=== PATIENT | male | born 1955 | race Caucasian/White ===

== ENCOUNTER 2016-06-15 15:51 | Inpatient (IN) ==
[2016-06-15] MEDS ORDERED: THIAMINE INJ 100 MG, FOLIC ACID INJ 1 MG, MAGNESIUM SULF INJ 2 GM, MULTIVITAMIN INJ 10 ... IV ONE (16:48)
--- NOTE | 2016-06-15 16:58 | EKG Report ---
Stationary ECG Study [facility] ER Test Date: 06/15/2016 4:56:13 PM Pat Name: ISAC AYON Department: Room: Gender: M Camp Coordinator: : 1955 Requested by: Sabas Hartman Order Number: [id number] Reading MD: ELISHA MCPHERSON Intervals Clark Rate: 105 P: 999 DE: 0 QRS: 41 QRSD: 98 T: 254 QT: 378 QTc: 439 Interpretive Statements ATRIAL FIBRILLATION WITH RAPID VENTRICULAR RESPONSE INCOMPLETE RIGHT BUNDLE BRANCH BLOCK ST DEVIATION AND MODERATE T-WAVE ABNORMALITY Electronically Signed On 06-16-16 17:54:40 CDT by ELISHA MCPHERSON [id number]
--- NOTE | 2016-06-15 17:11 | Emergency Department Note ---
ILeon Kasabria, am scribing for, and in the presence of, Sbaas Horne MD 16:57. Coleen Ramos Charles R, MD, personally performed the services described in this documentation, ascribed by Sheng Quintero in my presence, and it is both accurate and complete . Arrival - Arrival Chief Complaint: Blood Pressure Stated Complaint: C/O FAILURE TO THRIVE, HYPOTENSIVE ED Nursing Triage Note: Pt has decreased PO intake and states that he has not walked in approx 8 days - EMS reports that he was hypotensive upon their arrival Mode of Arrival: Stretcher Limitations: No Limitations Source: Patient - History of Present Illness HPI Narrative: This is a 60 y/o white male presenting to the ED with c/o failure to thrive and being hypotensive. Pt states he has not been eating, drinking, and walking over the course of eight days because he has been depressed. He states he has still taken his medications. He recently retired one month ago and since he has been on a steady decline. He admitted to being an alcoholic and he drinks daily in three hour intervals. He states when he does not drink, he shakes and twitches in his sleep and the only thing that can make it better is if he drinks. Pt c/o leg pain and weakness and states this has also contributed to him not wanting to walk and be active. He states he does not want to because he has a 16 y/ o son at home that he has to take care of. Pt would not have came to the ED if his did not call the ambulance. He is a pt of Dr. Yair Reyes and is suppose to visit him every three months but states he has not been compliant with his visits. His PMHx is consistent with CHF with preserved ejection fraction, atrial fibrillation, and diabetes. Consistency: constant Severity: moderate Allergies/Adverse Reactions: Allergies Allergy/AdvReac Type Severity Reaction Status Date / Time No Known Allergies Allergy Verified 12/15/15 19:33 Home Medications: Home Medications Medication Instructions Recorded Confirmed Type Apixaban [Eliquis] 5 mg PO BID #60 tablet 12/18/15 Rx Aspirin Chew Tab 81 mg PO DAILY tablet 12/18/15 Rx Diltiazem Cd Cap [Cardizem CD] 180 mg PO DAILY #30 capsule 12/18/15 Rx Furosemide Tab [Lasix Tab] 40 mg PO BID DIURETIC #60 tablet 12/18/15 Rx Losartan [Cozaar] 25 mg PO DAILY #30 tablet 12/18/15 Rx Magnesium Oxide 800 mg PO BID #60 tablet 12/18/15 Rx Nitroglycerin Sl Tab [Nitrostat] 0.4 mg SL Q5M PRN #30 tablet 12/18/15 Rx Sotalol [Betapace] 80 mg PO BID #60 tablet 12/18/15 Rx Spironolactone [Aldactone] 50 mg PO DAILY #30 tablet 12/18/15 Rx Review of System - Review of System 12 point system: reviewed and no additional remarkable complaints except as stated - Review of System Constitutional: Present: other (depressed ). Absent: chills, fever, weakness Eyes: Absent: vision change Head/Ears/Nose/Throat: Absent: nasal drainage Respiratory: Absent: cough, wheezing Cardiovascular: Absent: chest pain, dyspnea on exertion Gastrointestinal: Absent: abdominal pain, nausea, vomiting, diarrhea Genitourinary male: Absent: dysuria Musculoskeletal: Present: leg pain (bilateral ). Absent: arm pain, back pain, neck pain Skin: Absent: rash, change in color Neurological: Present: weakness. Absent: headache, numbness, confusion, vertigo Psychiatric: Present: depression (confessed to being an alcoholic and drinks daily ). Absent: anxiety Endocrine: Absent: fatigue Hematological/Lymphatic: Absent: easy bleeding Allergic/Immunologic: Absent: facial swelling Medical,Surgical,& Family Hx - Medical History Cardio: History of: Cardiac Dysrhythmia (atrial fib flutter with tachybradycardia syndrome as diagnosi for pacemaker), CHF (with preserved ejection fraction), Hypertension, Pacemaker Neurology: History of: TIA Endocrine: History of: Diabetes Mellitus (NIDDM) Rheumatology: History of;: Psoriasis Respiratory: History of: Obstructive Sleep Apnea Musculoskeletal: History of: Musculoskeletal Problems (WEEK IN LOWER EXTREMITIES ) Hematology: History of: Blood Transfusion Reaction (NO REACTION) - Family History Family History: Reports;: Family Diabetes (MOTHER), Family Heart Disease, Family Hypertension (MOTHER), Family Psychiatric Problems (MOTHER) - Social History Smoking Status: Never smoker Frequency of Alcohol Use: Frequently Type of Drug Use: None Exam Vital Signs: Vital Signs Temperature 98.4 F 06/15/16 16:04 Pulse Rate 99 H 06/15/16 17:30 Respiratory Rate 20 06/15/16 17:30 Blood Pressure 85/51 06/15/16 17:30 O2 Sat by Pulse Oximetry 100 06/15/16 17:30 - General General appearance: alert, in no apparent distress - Head Head exam: Present: atraumatic, normocephalic, normal inspection - Eye Eye exam: Present: normal appearance, PERRL, EOMI - ENT ENT exam: Present: normal exam, normal oropharynx, mucous membranes moist, TM's normal bilaterally, normal external ear exam - Neck Neck exam: Present: normal inspection, full ROM, trachea midline. Absent: tenderness - Chest Chest inspection: Present: normal inspection, symmetric chest wall rise. Absent : tenderness - Respiratory Respiratory exam: Present: normal lung sounds bilaterally - Cardiovascular Cardiovascular exam: Present: regular rate, normal rhythm, normal heart sounds - Abdominal Exam Abdominal exam: Present: soft, distention (bloated ), normal bowel sounds. Absent: tenderness - Rectal Exam Rectal exam: Present: heme (+) stool - Extremities Exam Extremities exam: Present: tenderness, normal capillary refill, calf tenderness (bilaterally; atrophy ). Absent: normal inspection, pedal edema - Back Exam Back exam: Present: normal inspection, full ROM. Absent: tenderness - Neurological Exam Neurological exam: Present: alert, oriented X3, CN II-XII intact, normal gait, reflexes normal - Psychiatric Psychiatric exam: Present: normal affect, depressed (came out as an alcoholic today ). Absent: normal mood - Skin Skin exam: Present: warm, dry, intact, normal color. Absent: rash Course - Consultations Consultation #1: Dr. Norma Garcia will admit for Dr. Dr. Reyes Time: 18:38 Results - Labs CBC & BMP: 06/15/16 16:25 06/15/16 16:25 Lab Results: I have reviewed the patients labs Critical Care Time Critical Care Time: Yes Total Critical Care Time: 60 Disposition Clinical Impression: Ascites, Obesity, Acute blood loss anemia, GI bleed, Alcohol abuse, Elevated liver enzymes, Hypotension, Failure to thrive, Acute renal failure Case discussed with: patient, patient's family Disposition: Still a Patient Condition: Critical Time of Disposition: 18:48
[2016-06-15 17:13] LABS: Basophils % 0.4 % (0.0-0.8); Eosinophils # 0.1 10*3/uL (0.0-0.87); Eosinophils % 1.7 % (0.00-10.9); Hematocrit 23.6 VOL% (42.0-52.0); Hemoglobin 7.9 GM/DL (14.0-18.0); Immature Granulocytes % 1.4 %; Lymphocytes # 1.1 10*3/uL (1.4-4.0); Lymphocytes % 15.8 % (21.2-54.2); Mean Corpuscular HGB Conc 33.5 GM/DL (32-36); Mean Corpuscular Hemoglobin 36 PG (27-34); Mean Corpuscular Volume 106.8 FL (87-102); Mean Platelet Volume 11.1 FL (9.6-12.0); Monocytes # 0.9 10*3/uL (0.11-0.8); Monocytes % 12.4 % (1.7-12.7); NRBC # 0.04 10*3/uL; Neutrophils # 4.9 10*3/uL (1.4-7.4); Neutrophils % 68.3 % (38.7-73.9); Platelet Count 108 T/CUMM (130-400); Red Blood Count 2.21 MC/CUMM (3.8-5.5); Red Cell Distribution Width 14.7 % (9.3-17.3); White Blood Count 7.2 T/CUMM (4-12)
[2016-06-15 17:19] LABS: INR 1.1; PT Patient Result 12.2 SECS
--- NOTE | 2016-06-15 17:23 | CT Report ---
CT head/brain wo con Indication: Mental status changes. CT BRAIN WITHOUT CONTRAST DLP: 1134 mGy*cm. One or more of the following dose reduction techniques was used: Automated exposure control, adjustment of the mA and/or kV according the patient size, or use of iterative reconstruction techniques. Comparison: 05/18/2011. Date of admission: 06/15/2016. Technique: Axial noncontrast CT images of the brain were obtained. Findings: No acute hemorrhage, mass or mass effect. Generalized atrophy and patchy periventricular white matter hypodensity is present throughout both convexities. Cortical cates-white junction and structures of the basal ganglia are well-defined. No bone lesions are shown. Internal auditory canals are symmetric. Visualized sinuses and mastoid air cells are clear. Impression: No acute intracranial pathology. Generalized atrophy and changes consistent with microvascular disease, both progressed since 2011. PROCEDURE INTERPRETED AT [facility] DEPARTMENT OF RADIOLOGY Final Report Signed by: Carlos Paniagua M.D.
--- NOTE | 2016-06-15 17:25 | XRay Report ---
XR chest 1V portable Indication: Altered mental status. Chest one view: Comparison 12/15/2015. Cardiomegaly has improved significantly, now mild. Pacemaker stable. Mediastinal contours unremarkable. Lungs are clear except for some mild right basal atelectasis secondary to chronic elevation right hemidiaphragm. Impression: No acute cardiopulmonary disease. Mild cardiomegaly, pacemaker and chronic elevation right hemidiaphragm. PROCEDURE INTERPRETED AT [facility] DEPARTMENT OF RADIOLOGY Final Report Signed by: Carlos Paniagua M.D.
--- NOTE | 2016-06-15 17:28 | Ultrasound Report ---
US venous doppler LE BI Indication: Bilateral calf pain. BILATERAL LOWER EXTREMITY VENOUS ULTRASOUND Comparison: 12/11/2015 Findings: Graded grayscale compression, color Doppler and pulsed Doppler ultrasound evaluation of the venous structures performed. Normal compressibility, augmentation and color saturation is present within bilateral common femoral, superficial femoral, popliteal and proximal greater saphenous veins. Impression: No evidence of DVT either lower extremity. PROCEDURE INTERPRETED AT [facility] DEPARTMENT OF RADIOLOGY Final Report Signed by: Carlos Paniagua M.D.
[2016-06-15 17:31] LABS: Alanine Aminotransferase 47 U/L (16-61); Albumin 2.6 G/DL (3.4-5.0); Alkaline Phosphatase 226 U/L (45-117); Amylase 29 U/L (25-115); Aspartate Amino Transferase 180 U/L (0-37); Blood Urea Nitrogen 60 MG/DL (7-18); Calcium 8.2 MG/DL (8.5-10.1); Free T4 (Free Thyroxine) 1.13 NG/DL (0.76-1.46); Glucose 70 MG/DL (74-106); Magnesium 2.3 MG/DL (1.8-2.4); Osmolality,Calculated 274.8 MOS/KG (273-304); Potassium 4.5 MMOL/L (3.5-5.1); Sodium 130 MMOL/L (136-145); Total Protein 5.1 G/DL (6.4-8.3); Troponin I Only < 0.015 NG/ML (0.00-0.045)
[2016-06-15 17:52] LABS: Ammonia 39 UMOL/L (11-32)
[2016-06-15] MEDS ORDERED: ONDANSETRON 4 MG/2 ML VIAL IV PRN (19:40)
[2016-06-15] MEDS ORDERED: LORazepam 2 MG/1 ML VIAL IV PRN ×3 (19:40→23:19)
[2016-06-15] MEDS ORDERED: SODIUM CHLORIDE 0.9% 250 ML IV PRN (19:40)
[2016-06-15] MEDS ORDERED: GLUCAGON 1 MG VIAL IM PRN (19:40)
[2016-06-15] MEDS ORDERED: MORPHINE 2 MG/1 ML SYRINGE IV PRN (19:40)
[2016-06-15] MEDS ORDERED: DEXTROSE 50% 25 GM/50 ML VIAL IV PRN (19:40)
[2016-06-15] MEDS ORDERED: ALBUTEROL/IPRATROPIUM 3 ML NEB RESP TX PRN (19:40)
[2016-06-15] MEDS: SODIUM CHLORIDE 0.9% 1,000 ML IV SCH (19:58)
[2016-06-15 20:09] LABS: Basophils % 0.4 % (0.0-0.8); Eosinophils # 0.2 10*3/uL (0.0-0.87); Eosinophils % 1.8 % (0.00-10.9); Hematocrit 23.6 VOL% (42.0-52.0); Hemoglobin 7.8 GM/DL (14.0-18.0); Immature Granulocytes % 1.3 %; Immature Granulocytes Absolute 0.11 #; Lymphocytes # 1.5 10*3/uL (1.4-4.0); Lymphocytes % 18.8 % (21.2-54.2); Mean Corpuscular HGB Conc 33.1 GM/DL (32-36); Mean Corpuscular Hemoglobin 35 PG (27-34); Mean Corpuscular Volume 104.9 FL (87-102); Monocytes # 1.1 10*3/uL (0.11-0.8); Monocytes % 13.4 % (1.7-12.7); NRBC # 0.04 10*3/uL; Neutrophils # 5.3 10*3/uL (1.4-7.4); Neutrophils % 64.3 % (38.7-73.9); Platelet Count 100 T/CUMM (130-400); Red Blood Count 2.25 MC/CUMM (3.8-5.5); Red Cell Distribution Width 15.1 % (9.3-17.3); White Blood Count 8.2 T/CUMM (4-12)
--- NOTE | 2016-06-15 20:13 | Internal Med History&Physical ---
Assessment and Plan (1) Paroxysmal atrial fibrillation Status: Chronic Current Visit: Yes (2) Acute renal failure Status: Acute Current Visit: Yes (3) Alcohol abuse Status: Chronic Current Visit: Yes (4) Ascites Status: Chronic Current Visit: Yes Qualifiers: Ascites type: due to alcoholic cirrhosis Qualified Code(s): K70.31 - Alcoholic cirrhosis of liver with ascites (5) Elevated liver enzymes Status: Chronic Current Visit: Yes (6) Failure to thrive Status: Chronic Current Visit: Yes (7) Hypotension Status: Acute Current Visit: Yes Qualifiers: Hypotension type: other hypotension type Qualified Code(s): I95.89 - Other hypotension (8) NICM (nonischemic cardiomyopathy) Status: Chronic Current Visit: Yes History of Present Illness Chief complaint: progressive weakness History of present illness: Mr. Tracy is a 60 year old male with history of dilated cardiomyopathy with EF 25%, diastolic dysfunction, sinus tachy debra syndrome with pacemaker placement, DM, liver cirrhosis, alcoholism, hypothyroidism, paroxysmal atrial fibrillation, who presented to ER with profound and worsening weakness. He was found to have pancreatitis, liver failure, and possibly hepatorenal syndrome. He is in renal failure. He reported to ER that he has not been eating/drinking over several days, except for drinking alcohol. He admits to alcoholism as reported by ER. Admitted to ICU with severe anemia and receiving blood transfusion. He, also, is found to be hyponatremic. History of ascites and abdominal x-ray ordered for morning. Failure to thrive. He has history of medical noncompliance. Home Medications Medication Instructions Recorded Confirmed Type Apixaban [Eliquis] 5 mg PO BID #60 tablet 12/18/15 06/15/16 Rx Aspirin Chew Tab 81 mg PO DAILY tablet 12/18/15 06/15/16 Rx Diltiazem Cd Cap [Cardizem CD] 180 mg PO DAILY #30 capsule 12/18/15 06/15/16 Rx Furosemide Tab [Lasix Tab] 40 mg PO BID DIURETIC #60 tablet 12/18/15 06/15/16 Rx Losartan [Cozaar] 25 mg PO DAILY #30 tablet 12/18/15 06/15/16 Rx Magnesium Oxide 800 mg PO BID #60 tablet 12/18/15 06/15/16 Rx Nitroglycerin Sl Tab [Nitrostat] 0.4 mg SL Q5M PRN #30 tablet 12/18/15 06/15/16 Rx Sotalol [Betapace] 80 mg PO BID #60 tablet 12/18/15 06/15/16 Rx Spironolactone [Aldactone] 50 mg PO DAILY #30 tablet 12/18/15 06/15/16 Rx Furosemide [Lasix] 40 mg PO BID 06/15/16 06/15/16 History Levothyroxine Tab [Synthroid Tab] 75 mcg PO DAILY@0700 06/15/16 06/15/16 History Potassium Chloride 20 meq PO BID 06/15/16 06/15/16 History Allergies Allergy/AdvReac Type Severity Reaction Status Date / Time No Known Allergies Allergy Verified 12/15/15 19:33 Medical,Surgical,& Family Hx - Medical History Cardio: History of: Cardiac Dysrhythmia (atrial fib flutter with tachybradycardia syndrome; pacemaker placement), CHF (with preserved ejection fraction), Hypertension, Pacemaker Psychological: History of: Depression Neurology: History of: TIA Endocrine: History of: Diabetes Mellitus (NIDDM) Rheumatology: History of;: Psoriasis Respiratory: History of: Obstructive Sleep Apnea Renal: History of: Renal Problems (chronic renal insufficiency) Gastrointestinal: History of: Liver Problems (cirrhosis) Musculoskeletal: History of: Musculoskeletal Problems (WEAK IN LOWER EXTREMITIES ) Hematology: History of: Anemia (chronic disease and illness) - Surgical History Cardiac Surgeries: Sugical HX of: Internal Defibrillator (pacemaker) - Family History Family History: Reports;: Family Diabetes (MOTHER), Family Heart Disease, Family Hypertension (MOTHER), Family Psychiatric Problems (MOTHER) - Social History Smoking Status: Former smoker Frequency of Alcohol Use: Frequently Type of Drug Use: None Marital Status: Lives With:: Spouse Functional capacity: independent ambulation (complains of being too weak to walk in last several days) - Constitutional Constitutional: Present: anorexia, fatigue, lethargy, malaise, weakness - Gastrointestinal Gastrointestinal: Present: bloating, jaundice - Musculoskeletal Musculoskeletal: Present: muscle weakness - Neurological Neurological: Present: behavioral changes, confusion - Psychiatric Psychiatric: Present: anxiety Exam - Constitutional Vitals: Period Temp Pulse Resp BP Sys/Mcbride Pulse Ox Last 24 Hr 101 20 100/65 100 General appearance: mild distress - Head Head exam: Present: normocephalic - Eye Eye exam: Present: EOMI - Respiratory Respiratory exam: Present: clear to auscultation bilaterally. Absent: rales, rhonchi, wheezes - Cardiovascular Cardiovascular exam: Present: tachycardia - GI/Abdominal GI/Abdominal exam: Present: distended - Extremities Exam Extremities exam: Absent: edema - Neurological Exam Neurological exam: Present: altered - Psychiatric Psychiatric exam: Present: depressed, flat affect - Skin Skin exam: Present: dry, rash (forehead and scalp) Results - Labs CBC & BMP: 06/15/16 19:51 06/15/16 16:25 - EKG EKG shows: tachycardia (at time seen) - Diagnostic Findings Procedure: Chest x-ray: report reviewed by me, image reviewed by me, CT: report reviewed by me Quality Measures - VTE Contraindication to Pharmacological VTE Prophylaxis: Active Bleeding
[2016-06-15] MEDS ORDERED: FUROSEMIDE 40 MG TABLET PO ONE (20:14)
[2016-06-15] MEDS: DOCUSATE SODIUM 100 MG CAPSULE PO SCH (20:38)
[2016-06-15] MEDS: INSULIN REGULAR 100 UNIT/ML SUBCUT SCH (21:23)
[2016-06-15] MEDS ORDERED: LEVOTHYROXINE 50 MCG TABLET PO ONE (23:27)
[2016-06-15] MEDS ORDERED: SOTALOL 80 MG TABLET PO SCH (23:30)
[2016-06-15] MEDS: HALOPERIDOL 5 MG/ML AMP IM SCH (23:32)
[2016-06-15] MEDS: METOPROLOL TARTRATE 25 MG TABLET PO SCH (23:35)
[2016-06-16] MEDS: ALBUTEROL/IPRATROPIUM 3 ML NEB RESP TX SCH ×4 (02:19→19:15)
[2016-06-16] MEDS: NYSTATIN CREAM 15 GM TUBE TOP SCH ×3 (05:30→22:02)
[2016-06-16] MEDS: KETOCONAZOLE 2% SHAMPOO 120 ML BOTTLE TOP SCH (05:30)
[2016-06-16] MEDS: LEVOTHYROXINE 50 MCG TABLET PO SCH (06:38)
--- NOTE | 2016-06-16 06:41 | XRay Report ---
Referring Physician: Izabella Garcia Exam: XR chest 1V portable Date: June 16, 2016 at 3:12 AM Reason: Shortness of breath Comparison: Chest one view portable June 15, 2016 Findings: The cardiac silhouette is again enlarged, and a cardiac pacing device is again in place. There is persistent mild elevation of the right hemidiaphragm and minimal atelectasis at the right lung base. No pneumothorax or pleural effusion is identified. No acute osseous process is seen. Impression: There has been no significant change. PROCEDURE INTERPRETED AT [facility] DEPARTMENT OF RADIOLOGY Final Report Signed by: Dr. David Rhoades
--- NOTE | 2016-06-16 06:43 | XRay Report ---
Referring Physician: Izabella Garcia Exam: XR KUB Date: June 16, 2016 at 3:13 AM Reason: Generalized abdominal pain Comparison: None Findings: There is mild gaseous distention of the small bowel. This could represent ileus or small bowel obstruction. No free air is identified. The renal shadows are obscured. No acute osseous process is seen. Note is made of prominent scattered arterial calcification. Impression: There are several mildly distended loops of small bowel. This could represent ileus or small bowel obstruction. Follow-up is recommended. PROCEDURE INTERPRETED AT [facility] DEPARTMENT OF RADIOLOGY Final Report Signed by: Dr. David Rhoades
[2016-06-16 08:22] LABS: Albumin 2.6 G/DL (3.4-5.0); Bilirubin,Total 4.7 MG/DL (0.2-1.0); Calcium 8.4 MG/DL (8.5-10.1); Magnesium 2.6 MG/DL (1.8-2.4); Osmolality,Calculated 281.4 MOS/KG (273-304); Potassium 4.3 MMOL/L (3.5-5.1); Risk Ratio 4.6; Total Protein 5.1 G/DL (6.4-8.3); VLDL CHOLESTEROL 19.8 MG/DL
[2016-06-16] MEDS: HALOPERIDOL 5 MG/ML AMP IM SCH ×4 (08:23→23:59)
[2016-06-16] MEDS: INSULIN REGULAR 100 UNIT/ML SUBCUT SCH ×4 (08:23→21:25)
[2016-06-16] MEDS ORDERED: PANTOPRAZOLE 40 MG VIAL IV SCH (09:00)
[2016-06-16] MEDS ORDERED: LACTULOSE 20 GM/30 ML UDCUP PO SCH (09:00)
[2016-06-16] MEDS ORDERED: THIAMINE INJ 100 MG, FOLIC ACID INJ 1 MG, MULTIVITAMIN INJ 10 ML in SODIUM CHLORIDE 0.9... IV SCH (10:00)
--- NOTE | 2016-06-16 11:49 | Gastrointestinal Consult Note ---
Assessment and Plan (1) Anemia Status: Acute Assessment and plan: 06/16-Findings on admission of hgb 7.8, no reports of overt bleeding. No known prior endoscopy. Noted to be on Eliquis prior to admission for A-fib, held at present time. Continue to monitor HH. Plan and addendum to follow by Dr Ray. Current Visit: Yes History of Present Illness Chief complaint: Anemia, hx of cirrhosis History of present illness: Mr. Tracy is a 60 year old male who presented to the hospital with complaints of low blood pressure and failure to thrive. Pt is a poor historian and no family present during visit. Pt information is obtained from chart review. Pt reportedly retired a month ago and since this time he has had a decline. He has a history of alcoholism and drinks several times a day. He reportedly also has shakes and twitches that are only improved with is continual drinking. He has not been complaint with is medical care and followups with Dr Reyes. He has a history of CHF, atrial fibrillation, DM, and cardiomyopathy with EF of 25%. On admission, he was found to have hemoglobin of 7.8. There were no reports of overt bleeding on admission. He was also noted to have a lipase of 2428. Albumin 2.6, bilirubin 4.7, AST 163, Alk phos 218, ammonia 39, now down to 20. He was transfused 2 units of blood with repeat hemoglobin pending. He was last seen at our facility in December of last year for ascites. He was found on CT at that time to have enlarged liver with cystic liver lesion that was slightly larger than 2010. He had paracentesis at that time however they were unable to remove fluid at that time due to not significant enough ascites. He was found at that time as well to have positive Hepatitis A serology. He had normal transaminases at that time. No history of endoscopy in the past. Pt is noted to be on Eliquis for atrial fibrillation prior to admission which is currently being held. Home Medications Medication Instructions Recorded Confirmed Type Apixaban [Eliquis] 5 mg PO BID #60 tablet 12/18/15 06/15/16 Rx Aspirin Chew Tab 81 mg PO DAILY tablet 12/18/15 06/15/16 Rx Diltiazem Cd Cap [Cardizem CD] 180 mg PO DAILY #30 capsule 12/18/15 06/15/16 Rx Furosemide Tab [Lasix Tab] 40 mg PO BID DIURETIC #60 tablet 12/18/15 06/15/16 Rx Losartan [Cozaar] 25 mg PO DAILY #30 tablet 12/18/15 06/15/16 Rx Magnesium Oxide 800 mg PO BID #60 tablet 12/18/15 06/15/16 Rx Nitroglycerin Sl Tab [Nitrostat] 0.4 mg SL Q5M PRN #30 tablet 12/18/15 06/15/16 Rx Sotalol [Betapace] 80 mg PO BID #60 tablet 12/18/15 06/15/16 Rx Spironolactone [Aldactone] 50 mg PO DAILY #30 tablet 12/18/15 06/15/16 Rx Furosemide [Lasix] 40 mg PO BID 06/15/16 06/15/16 History Levothyroxine Tab [Synthroid Tab] 75 mcg PO DAILY@0700 06/15/16 06/15/16 History Potassium Chloride 20 meq PO BID 06/15/16 06/15/16 History Allergies Allergy/AdvReac Type Severity Reaction Status Date / Time No Known Allergies Allergy Verified 12/15/15 19:33 Medical,Surgical,& Family Hx - Medical History Cardio: History of: Cardiac Dysrhythmia (atrial fib flutter with tachybradycardia syndrome; pacemaker placement), CHF (with preserved ejection fraction), Hypertension, Pacemaker Psychological: History of: Depression Neurology: History of: TIA Endocrine: History of: Diabetes Mellitus (NIDDM) Rheumatology: History of;: Psoriasis Respiratory: History of: Obstructive Sleep Apnea Renal: History of: Renal Problems (chronic renal insufficiency) Gastrointestinal: History of: Liver Problems (cirrhosis) Musculoskeletal: History of: Musculoskeletal Problems (WEAK IN LOWER EXTREMITIES ) Hematology: History of: Anemia (chronic disease and illness), Blood Transfusion Reaction (NO REACTION) - Surgical History Cardiac Surgeries: Sugical HX of: Internal Defibrillator (pacemaker) - Family History Family History: Reports;: Family Diabetes (MOTHER), Family Heart Disease, Family Hypertension (MOTHER), Family Psychiatric Problems (MOTHER) - Social History Smoking Status: Former smoker Frequency of Alcohol Use: Frequently Type of Drug Use: None ROS unobtainable: due to mental status Exam - Constitutional Vitals: Period Temp Pulse Resp BP Sys/Mcbride Pulse Ox Last 24 Hr 96.1 F-98.1 F 96-108 10-29 58-107/23-89 94-100 General appearance: no acute distress, over weight - Head Head exam: Present: normal inspection, normocephalic - Eye Eye exam: Present: scleral icterus, other (lids and conjunctiva unremarkable) - ENT ENT exam: Present: normal exam, normal oropharynx - Neck Neck exam: Present: normal inspection - Respiratory Respiratory exam: Present: clear to auscultation bilaterally. Absent: rales, rhonchi, wheezes - Cardiovascular Cardiovascular exam: Present: regular rate and rhythm. Absent: diastolic murmur , JVD, systolic murmur - GI/Abdominal GI/Abdominal exam: Present: normal bowel sounds, soft. Absent: ascites, distended, mass, organomegaly - Extremities Exam Extremities exam: Present: normal inspection, full ROM - Back Exam Back exam: Present: normal inspection - Neurological Exam Neurological exam: Present: alert, oriented X3 - Psychiatric Psychiatric exam: Present: normal affect, normal mood - Skin Skin exam: Present: normal color, warm, dry Results - Labs CBC & BMP: 06/15/16 19:51 06/16/16 07:29 Lab Results: I have reviewed the past 24 hour labs Quality Measures - VTE Contraindication to Pharmacological VTE Prophylaxis: Active Bleeding
--- NOTE | 2016-06-16 12:02 | Ultrasound Report ---
Exam: US renal Bilateral Date: 06/16/2016 9:38 AM Indication: Renal failure Comparison: 12/16/2015 Findings: Right kidney. 11.6 x 6.4 x 5.8 cm . no hydronephrosis perinephric fluid collections or focal mass with slight increased echogenicity Left kidney. 11.6 x 5.9 x 5.7 cm. No hydronephrosis perinephric fluid collections or focal mass with slight increased echogenicity Impression: 1. Mild medical renal disease without obstruction Ultrasound images were stored and captured PROCEDURE INTERPRETED AT [facility] DEPARTMENT OF RADIOLOGY Final Report Signed by: Dr. Darryl Mak
--- NOTE | 2016-06-16 12:28 | Sleep Medicine Consult ---
Assessment and Plan (1) Obstructive sleep apnea Status: Acute Assessment and plan: This patient does have a history of significant obstructive sleep apnea and did have good results with CPAP therapy. We will go ahead and place him on CPAP therapy at his prescribed pressures from his last titration. I have no history with his recent usage and his machine was not brought for download. A family member can bring this in for us this would be good to allow us to assess his compliance data. Current Visit: Yes (2) Hypertension Status: Chronic Assessment and plan: The prevalence rate for obstructive sleep apnea patients with hypertension is 35 %. That rate can be as high as 80% in patients who require 4 or more medications for blood pressure control. Current Visit: No (3) Systolic congestive heart failure Status: Chronic Assessment and plan: Untreated sleep apnea certainly can contribute to exacerbations of congestive heart failure. CPAP therapy has been shown to improve systolic function in patients with congestive heart failure due to systolic dysfunction who have concurrent obstructive sleep apnea. It has also been shown to improve outcomes in patients with diastolic heart dysfunction. Current Visit: No Qualifiers: Qualified Code(s): I50.20 - Unspecified systolic (congestive) heart failure (4) History of atrial fibrillation Status: Resolved Assessment and plan: The prevalence for obstructive sleep apnea patients with atrial fibrillation just from 30-80%. Compliance with CPAP therapy can help reduce recurrence rate by almost 50%. Current Visit: No History of Present Illness Chief complaint: Sleep apnea History of present illness: Mr. Tracy is a 60 year old male known to the sleep lab admitted with abnormal liver function studies, renal failure, and severe anemia. He has a history of alcoholism and had previously been diagnosed with obstructive sleep apnea and June 2012, with an AHI of 26.8. He had O2 desaturation to lows of 74 %. He had good results on CPAP of 10 cm and did have compliance achieved on follow-up in December 2012. Today, he is somnolent and does not give any history. He was uncooperative with exam. Home Medications Medication Instructions Recorded Confirmed Type Apixaban [Eliquis] 5 mg PO BID #60 tablet 12/18/15 06/15/16 Rx Aspirin Chew Tab 81 mg PO DAILY tablet 12/18/15 06/15/16 Rx Diltiazem Cd Cap [Cardizem CD] 180 mg PO DAILY #30 capsule 12/18/15 06/15/16 Rx Furosemide Tab [Lasix Tab] 40 mg PO BID DIURETIC #60 tablet 12/18/15 06/15/16 Rx Losartan [Cozaar] 25 mg PO DAILY #30 tablet 12/18/15 06/15/16 Rx Magnesium Oxide 800 mg PO BID #60 tablet 12/18/15 06/15/16 Rx Nitroglycerin Sl Tab [Nitrostat] 0.4 mg SL Q5M PRN #30 tablet 12/18/15 06/15/16 Rx Sotalol [Betapace] 80 mg PO BID #60 tablet 12/18/15 06/15/16 Rx Spironolactone [Aldactone] 50 mg PO DAILY #30 tablet 12/18/15 06/15/16 Rx Furosemide [Lasix] 40 mg PO BID 06/15/16 06/15/16 History Levothyroxine Tab [Synthroid Tab] 75 mcg PO DAILY@0700 06/15/16 06/15/16 History Potassium Chloride 20 meq PO BID 06/15/16 06/15/16 History Allergies Allergy/AdvReac Type Severity Reaction Status Date / Time No Known Allergies Allergy Verified 12/15/15 19:33 Review of systems: Unobtainable due to current condition. Exam (Pulmonay) H&P - Constitutional Vitals: Period Temp Pulse Resp BP Sys/Mcbride Pulse Ox Last 24 Hr 96.1 F-98.1 F 96-108 10-29 58-107/23-89 94-100 Exam: Somnolent but arousable. He will not cooperate with exam. He resisted eye exam but appear to have miotic pupils. Oropharynx with class IV Mallampati exam though he resisted. Neck large supple without adenopathy. Chest with symmetrical breath sounds without focal wheeze or rhonchi. Cardiac exam reveals a regular rhythm without murmur or gallop. Abdomen obese nontender without palpable hepatosplenomegaly or mass. Extremities are without clubbing, cyanosis, or edema. Neurologically, he is lethargic Medical,Surgical,& Family Hx - Medical History Cardio: History of: Cardiac Dysrhythmia (atrial fib flutter with tachybradycardia syndrome; pacemaker placement), CHF (with preserved ejection fraction), Hypertension, Pacemaker Psychological: History of: Depression Neurology: History of: TIA Endocrine: History of: Diabetes Mellitus (NIDDM) Rheumatology: History of;: Psoriasis Respiratory: History of: Obstructive Sleep Apnea Renal: History of: Renal Problems (chronic renal insufficiency) Gastrointestinal: History of: Liver Problems (cirrhosis) Musculoskeletal: History of: Musculoskeletal Problems (WEAK IN LOWER EXTREMITIES ) Hematology: History of: Anemia (chronic disease and illness), Blood Transfusion Reaction (NO REACTION) - Surgical History Cardiac Surgeries: Sugical HX of: Internal Defibrillator (pacemaker) - Family History Family History: Reports;: Family Diabetes (MOTHER), Family Heart Disease, Family Hypertension (MOTHER), Family Psychiatric Problems (MOTHER) - Social History Smoking Status: Former smoker Frequency of Alcohol Use: Frequently Type of Drug Use: None Results - Labs CBC & BMP: 06/15/16 19:51 06/16/16 07:29 Lab Results: I have reviewed the past 24 hour labs Quality Measures - VTE Contraindication to Pharmacological VTE Prophylaxis: Active Bleeding
--- NOTE | 2016-06-16 13:19 | Nephrology Consult Note ---
History of Present Illness Chief complaint: ARF History of present illness: Mr. Tracy is a 60 year old male admitted with hypotension and weakness. He has a history of ethanol abuse. He states he has been drinking and not eating for the past 3 weeks. He was noted to have renal failure at the time of admission. No prior history of renal failure. He denies dysuria or obstructive symptoms. He was also noted to be significantly anemic at the time of admission. He has been transfused. Home Medications Medication Instructions Recorded Confirmed Type Apixaban [Eliquis] 5 mg PO BID #60 tablet 12/18/15 06/15/16 Rx Aspirin Chew Tab 81 mg PO DAILY tablet 12/18/15 06/15/16 Rx Diltiazem Cd Cap [Cardizem CD] 180 mg PO DAILY #30 capsule 12/18/15 06/15/16 Rx Furosemide Tab [Lasix Tab] 40 mg PO BID DIURETIC #60 tablet 12/18/15 06/15/16 Rx Losartan [Cozaar] 25 mg PO DAILY #30 tablet 12/18/15 06/15/16 Rx Magnesium Oxide 800 mg PO BID #60 tablet 12/18/15 06/15/16 Rx Nitroglycerin Sl Tab [Nitrostat] 0.4 mg SL Q5M PRN #30 tablet 12/18/15 06/15/16 Rx Sotalol [Betapace] 80 mg PO BID #60 tablet 12/18/15 06/15/16 Rx Spironolactone [Aldactone] 50 mg PO DAILY #30 tablet 12/18/15 06/15/16 Rx Furosemide [Lasix] 40 mg PO BID 06/15/16 06/15/16 History Levothyroxine Tab [Synthroid Tab] 75 mcg PO DAILY@0700 06/15/16 06/15/16 History Potassium Chloride 20 meq PO BID 06/15/16 06/15/16 History Allergies Allergy/AdvReac Type Severity Reaction Status Date / Time No Known Allergies Allergy Verified 12/15/15 19:33 Medical,Surgical,& Family Hx - Medical History Cardio: History of: Cardiac Dysrhythmia (atrial fib flutter with tachybradycardia syndrome; pacemaker placement), CHF (with preserved ejection fraction), Hypertension, Pacemaker Psychological: History of: Depression Neurology: History of: TIA Endocrine: History of: Diabetes Mellitus (NIDDM) Rheumatology: History of;: Psoriasis Respiratory: History of: Obstructive Sleep Apnea Renal: History of: Renal Problems (chronic renal insufficiency) Gastrointestinal: History of: Liver Problems (cirrhosis) Musculoskeletal: History of: Musculoskeletal Problems (WEAK IN LOWER EXTREMITIES ) Hematology: History of: Anemia (chronic disease and illness), Blood Transfusion Reaction (NO REACTION) - Surgical History Cardiac Surgeries: Sugical HX of: Internal Defibrillator (pacemaker) - Family History Family History: Reports;: Family Diabetes (MOTHER), Family Heart Disease, Family Hypertension (MOTHER), Family Psychiatric Problems (MOTHER) - Social History Smoking Status: Former smoker Frequency of Alcohol Use: Frequently Type of Drug Use: None Review of Systems 12 point system: reviewed and no additional remarkable complaints except as stated Exam - Vital Signs Vital signs: Period Temp Pulse Resp BP Sys/Mcbride Pulse Ox Last 24 Hr 96.1 F-98.1 F 96-108 01-02 58-107/ 94-100 Exam: Gen.: Alert and oriented x3. ENT: Pupils equal round reactive to light. EOMs intact. Mucous membranes moist. Neck: Supple. No JVD or bruit. Cardiovascular: Irregularly irregular rhythm Lungs: Clear Abdomen: Soft. Nontender. Positive bowel sounds. No organomegaly Extremities: No edema Results - Labs CBC & BMP: 06/15/16 19:51 06/16/16 07:29 Assessment and Plan (1) Acute renal failure Status: Acute Assessment and plan: 60-year-old man admitted with: * ARF. This is due to a combination of hypotension, volume depletion, and ARB. Renal function has improved with improvement in blood pressure. ARB is being held * Anemia. Transfusion * Chronic liver disease * History of hypertension * Paroxysmal A. fib * Cardiomyopathy * Ethanol abuse Current Visit: Yes (2) Anemia Status: Acute Current Visit: Yes (3) Hypotension Status: Acute Current Visit: Yes Qualifiers: Hypotension type: other hypotension type Qualified Code(s): I95.89 - Other hypotension (4) Obstructive sleep apnea Status: Acute Current Visit: Yes (5) Alcohol abuse Status: Chronic Current Visit: Yes (6) Ascites Status: Chronic Current Visit: Yes Qualifiers: Ascites type: due to alcoholic cirrhosis Qualified Code(s): K70.31 - Alcoholic cirrhosis of liver with ascites (7) NICM (nonischemic cardiomyopathy) Status: Chronic Current Visit: Yes (8) Paroxysmal atrial fibrillation Status: Chronic Current Visit: Yes
[2016-06-16] MEDS: METOPROLOL TARTRATE 25 MG TABLET PO SCH ×2 (13:41→21:34)
[2016-06-16] MEDS: DOCUSATE SODIUM 100 MG CAPSULE PO SCH ×2 (13:42→21:32)
[2016-06-16] MEDS: FUROSEMIDE 40 MG TABLET PO SCH ×2 (13:42→13:45)
[2016-06-16 13:46] LABS: Basophils % 0.4 % (0.0-0.8); Eosinophils # 0.1 10*3/uL (0.0-0.87); Eosinophils % 1.7 % (0.00-10.9); Hematocrit 27.7 VOL% (42.0-52.0); Hemoglobin 9.3 GM/DL (14.0-18.0); Immature Granulocytes % 0.9 %; Immature Granulocytes Absolute 0.05 #; Lymphocytes # 0.9 10*3/uL (1.4-4.0); Lymphocytes % 16.9 % (21.2-54.2); Mean Corpuscular HGB Conc 33.6 GM/DL (32-36); Mean Corpuscular Hemoglobin 34 PG (27-34); Mean Corpuscular Volume 102.6 FL (87-102); Mean Platelet Volume 10.7 FL (9.6-12.0); Monocytes # 0.8 10*3/uL (0.11-0.8); Monocytes % 15.2 % (1.7-12.7); NRBC # 0.03 10*3/uL; Neutrophils # 3.5 10*3/uL (1.4-7.4); Neutrophils % 64.9 % (38.7-73.9); Platelet Count 75 T/CUMM (130-400); Red Cell Distribution Width 16.3 % (9.3-17.3); White Blood Count 5.4 T/CUMM (4-12)
[2016-06-16 14:05] LABS: Platelet Estimate Decreased
--- NOTE | 2016-06-16 15:12 | ECHO Report ---
Conrad Tracy Exam Date: 06/16/2016 09:45 Referring Physician: Technologist: Tosha Olsen Age: 60 Ht (in): 70 Wt (lb): 260 Gender: M Exam Location: [facility] Echo Indications: CHRIS, NIDDM, pacemaker, elevated liver enzymes, hypotension, NICM, weakness, A fib, acute renal failure, alcohol abuse, ascites, failure to thrive BP: 94 / 65 HR: 100 Rhythm: tachycardia Technical Quality: IMPRESSIONS EF 60 %. Grade I/IV diastolic dysfunction (abnormal relaxation filling pattern), normal to mildly elevated filling pressures. Normal right ventricular size. The right atrium is mildly enlarged. The left atrium is mildly enlarged. Mild mitral valve sclerosis. Trace mitral valve regurgitation. Aortic valve sclerosis. Trace aortic valve regurgitation. [id number] tricuspid valve regurgitation. [id number] mmHG. No pulmonic regurgitation. No pericardial effusion. Normal size aortic root and proximal ascending aorta. MEASUREMENTS (Male / Female) Normal Values 2D ECHO LV Diastolic Diameter PLAX 4.4 cm 4.2 - 5.9 / 3.9 - 5.3 cm LV Systolic Diameter PLAX 3.4 cm LV Fractional Shortening PLAX 24.0 % IVS Diastolic Thickness 2.0 cm 0.6 - 1.0 / 0.6 - 0.9 cm LVPW Diastolic Thickness 1.3 cm 0.6 - 1.0 / 0.6 - 0.9 cm RV Internal Dim ED PLAX 2.9 cm Aortic Root Diameter 2.5 cm LA Systolic Diameter LX 3.8 cm 3.0 - 4.0 / 2.7 - 3.8 cm DOPPLER TR Peak Velocity 288.0 cm/s TR Peak Gradient 33.2 mmHg FINDINGS Left Ventricle EF 60 %. Grade I/IV diastolic dysfunction (abnormal relaxation filling pattern), normal to mildly elevated filling pressures. Right Ventricle Normal right ventricular size. Right Atrium The right atrium is mildly enlarged. Left Atrium The left atrium is mildly enlarged. Mitral Valve Mild mitral valve sclerosis. Trace mitral valve regurgitation. Aortic Valve Aortic valve sclerosis. Trace aortic valve regurgitation. Tricuspid Valve Morphologically normal tricuspid valve. Kxbz-py-deccwalx tricuspid valve regurgitation. [id number] mmHG. Pulmonic Valve Pulmonic valve not well visualized. No pulmonic regurgitation. Pericardium No pericardial effusion. Aorta Normal size aortic root and proximal ascending aorta. Jose Luis Plavac (Electronically Signed) Final Date: 16 June 2016 15:11
--- NOTE | 2016-06-16 15:32 | Physician Query Form ---
CLICK EDIT DOCUMENT TO SELECT QUERY ANSWER --> OK --> SIGN Sarika Hernández RN Clinical Sulfur Burner W) [phone] (f) [phone] [email or web address] PROVIDERS: Make your selection(s) from the choices in EACH section by typing an "x" and enter comments in the comment section. Please use your independent medical judgment in providing your response. This request does not imply that any particular answer is desired or expected. CLINICAL INDICATORS: (Providers should not edit this section) Based on documentation of "liver failure". AUM=157, Ammonia level=39, Alkaline Mfhppdsmubs=[id number]. Clarify which of the following accurately represents the acuity of the above diagnosis. ( x) Acute ( ) Acute on chronic ( ) Chronic stable condition ( ) Remission ( ) Other, please specify: ( ) Clinically unable to determine COMMENTS: Use of terms such as suspected, likely, or probable (associated with a specific diagnosis that is being evaluated, monitored, or treated as if it exists) are acceptable and can be restated in the discharge summary if not ruled out. MTDD
[2016-06-16 15:43] LABS: Apearance,Urine CLEAR (Clear); Bilirubin,Urine Negative (Negative); Blood, Urine Negative (Negative); Glucose,Urine (UA) Negative (Negative); Hyaline Casts,Urine 1 /LPF (0-3); Ketones,Urine 5 mg/dL (Negative); Nitrite,Urine Negative (Negative); Protein,Urine Negative; Urine Color Yellow (Yellow); Urine Specific Gravity 1.008 (1.001-1.035); WBC,Urine 1 /HPF (0-6)
[2016-06-16] MEDS: SODIUM CHLORIDE 0.9% 1,000 ML IV SCH ×3 (18:31→23:41)
[2016-06-16] MEDS: PHENYLEPHRINE DRIP 40 MG/250 ML PREMIX IV PRN ×2 (19:30→23:42)
[2016-06-16 20:44] LABS: Apearance,Urine CLEAR (Clear); Bilirubin,Urine Negative (Negative); Blood, Urine Negative (Negative); Glucose,Urine (UA) Negative (Negative); Hyaline Casts,Urine 1 /LPF (0-3); Ketones,Urine 5 mg/dL (Negative); Nitrite,Urine Negative (Negative); Protein,Urine Negative; RBC,Urine <1 /HPF (0-4); Urine Color Yellow (Yellow); Urine Specific Gravity 1.008 (1.001-1.035); Urine Urobilinogen < 2.0 EU/DL (0.2-1.0); WBC,Urine <1 /HPF (0-6)
[2016-06-16] MEDS ORDERED: METOPROLOL TARTRATE 50 MG TABLET PO SCH ×3 (21:28→22:00)
[2016-06-16] MEDS ORDERED: METOPROLOL TARTRATE 5 MG/5 ML VIAL IV PRN (21:30)
--- NOTE | 2016-06-16 22:09 | Internal Med Progress Note ---
Assessment and Plan (1) Paroxysmal atrial fibrillation Status: Chronic Current Visit: Yes (2) Acute renal failure Status: Acute Current Visit: Yes (3) Alcohol abuse Status: Chronic Current Visit: Yes (4) Ascites Status: Chronic Current Visit: Yes Qualifiers: Ascites type: due to alcoholic cirrhosis Qualified Code(s): K70.31 - Alcoholic cirrhosis of liver with ascites (5) Elevated liver enzymes Status: Chronic Current Visit: Yes (6) Failure to thrive Status: Chronic Current Visit: Yes (7) Hypotension Status: Acute Current Visit: Yes Qualifiers: Hypotension type: other hypotension type Qualified Code(s): I95.89 - Other hypotension (8) NICM (nonischemic cardiomyopathy) Problem details: improved EF per updated ECHO Status: Chronic Current Visit : Yes (9) Acute pancreatitis Status: Acute Current Visit: Yes Qualifiers: Pancreatitis type: alcohol induced (10) Obstructive sleep apnea Status: Chronic Current Visit: Yes (11) Thrombocytopenia Status: Acute Current Visit: Yes Internal Medicine - PN: Subj Interval history: Mr. Tracy is a 60 year old male with history of dilated cardiomyopathy with EF 25%, diastolic dysfunction, sinus tachy debra syndrome with pacemaker placement, DM, liver cirrhosis, alcoholism, hypothyroidism, paroxysmal atrial fibrillation, who presented to ER with profound and worsening weakness. He was found to have pancreatitis, liver failure, and possibly hepatorenal syndrome. He is in renal failure. He reported to ER that he has not been eating/drinking over several days, except for drinking alcohol. He admits to alcoholism as reported by ER. Admitted to ICU with severe anemia and receiving blood transfusion. He, also, is found to be hyponatremic. History of ascites and abdominal x-ray ordered for morning. Failure to thrive. He has history of medical noncompliance. ECHO shows much improved left ventricular EF of 60% and improved pulmonary hypertension. Will increase fluid rate to better treat acute pancreatitis. Fluids will help renal function, also. Have started a lower dose of Synthroid, because uncertain whether he has taken the 75 mcg dose. He told ER that he was taking his meds while drinking alcohol every day. Exam (Progress Note) - Constitutional Vitals: Period Temp Pulse Resp BP Sys/Mcbride Pulse Ox Last 24 Hr 96.1 F-98.1 F 99-119 10-29 46-122/26-89 90-100 Exam: General appearance: no acute distress - Respiratory Respiratory exam: Present: clear to auscultation bilaterally - Cardiovascular Cardiovascular exam: Present: tachycardia - GI/Abdominal GI/Abdominal exam: Present: distended - Extremities Exam Extremities exam: Absent: edema - Neurological Exam Neurological exam: Present: more alert - Psychiatric Psychiatric exam: Present: depressed, flat affect - Skin Skin exam: Present: dry, rash (forehead and scalp) improved Results - Labs CBC & BMP: 06/16/16 13:37 06/16/16 07:29 Quality Measures - VTE Contraindication to Pharmacological VTE Prophylaxis: Active Bleeding
[2016-06-16] MEDS: FAMOTIDINE 20 MG/2 ML VIAL IV SCH (23:59)
[2016-06-17] MEDS: ALBUTEROL/IPRATROPIUM 3 ML NEB RESP TX SCH ×4 (01:24→19:33)
[2016-06-17] MEDS: METOPROLOL TARTRATE 5 MG/5 ML VIAL IV PRN ×3 (01:26→18:00)
[2016-06-17] MEDS: MEPERIDINE 25 MG/1 ML VIAL IV PRN (03:14)
[2016-06-17] MEDS: PHENYLEPHRINE DRIP 40 MG/250 ML PREMIX IV PRN ×5 (04:55→22:55)
[2016-06-17] MEDS: LACTULOSE 20 GM/30 ML UDCUP PO SCH ×5 (05:37→21:21)
[2016-06-17] MEDS: HALOPERIDOL 5 MG/ML AMP IM SCH ×4 (05:40→23:54)
[2016-06-17 05:54] LABS: Basophils % 0.2 % (0.0-0.8); Eosinophils # 0.1 10*3/uL (0.0-0.87); Eosinophils % 0.9 % (0.00-10.9); Hematocrit 29.9 VOL% (42.0-52.0); Hemoglobin 9.7 GM/DL (14.0-18.0); Immature Granulocytes % 0.7 %; Immature Granulocytes Absolute 0.07 #; Lymphocytes # 1.1 10*3/uL (1.4-4.0); Lymphocytes % 10.6 % (21.2-54.2); Mean Corpuscular HGB Conc 32.4 GM/DL (32-36); Mean Corpuscular Hemoglobin 34 PG (27-34); Mean Corpuscular Volume 104.5 FL (87-102); Mean Platelet Volume 10.2 FL (9.6-12.0); Monocytes # 1.1 10*3/uL (0.11-0.8); Monocytes % 11.4 % (1.7-12.7); Neutrophils # 7.6 10*3/uL (1.4-7.4); Neutrophils % 76.2 % (38.7-73.9); Platelet Count 107 T/CUMM (130-400); Red Blood Count 2.86 MC/CUMM (3.8-5.5); Red Cell Distribution Width 16.3 % (9.3-17.3)
[2016-06-17] MEDS ORDERED: METOPROLOL TARTRATE 5 MG/5 ML VIAL IV SCH (06:00)
[2016-06-17 06:24] LABS: Albumin 2.5 G/DL (3.4-5.0); Bilirubin,Total 3.4 MG/DL (0.2-1.0); Calcium 8.2 MG/DL (8.5-10.1); Magnesium 2.1 MG/DL (1.8-2.4); Osmolality,Calculated 279.4 MOS/KG (273-304); Phosphorous 2.1 MG/DL (2.5-4.9); Potassium 4.4 MMOL/L (3.5-5.1); Total Protein 5.2 G/DL (6.4-8.3)
[2016-06-17] MEDS: LEVOTHYROXINE 50 MCG TABLET PO SCH (06:34)
[2016-06-17] MEDS: NYSTATIN CREAM 15 GM TUBE TOP SCH ×2 (10:00→21:21)
[2016-06-17] MEDS: INSULIN REGULAR 100 UNIT/ML SUBCUT SCH ×4 (14:14→21:04)
[2016-06-17] MEDS: METOPROLOL TARTRATE 100 MG TABLET PO SCH ×2 (14:17→21:31)
[2016-06-17] MEDS ORDERED: PROPOFOL 200 MG/20 ML VIAL IV ONE (14:52)
[2016-06-17] MEDS ORDERED: LIDOCAINE 2% 5 ML VIAL ONE (14:52)
[2016-06-17] MEDS ORDERED: ETOMIDATE 20 MG/10 ML VIAL IV ONE (14:52)
--- NOTE | 2016-06-17 15:03 | History and Physical Update ---
History and Physical Update - History and Physical H&P was reviewed, the patient examined and there: are no changes in the patients condition since last H&P was completed. - Physical Exam Mental Status: alert and oriented Heart: regular rate and rhythm Lung: clear to auscultation Abdomen: within normal limits Vitals: within normal limits
--- NOTE | 2016-06-17 15:06 | Operative Note ---
Date of procedure: 06/17/16 Pre-op diagnosis: GI bleed, anemia, dysphagia Procedure: Procedure: Esophagogastroduodenoscopy with savory dilation esophagus Brief clinical abstract: Patient is a 60-year-old male with chronic liver disease admitted with weakness and had marked anemia. He has occult blood in stool but had noted no overt bleeding he says. Indication for procedure: Blood in stool, anemia, dysphagia Endoscopic findings:[After informed consent was obtained, the patient was placed in the left lateral decubitus position. The gastroscope was inserted in the upper esophagus under direct vision with no resistance encountered. Esophageal mucosa appeared normal down to the level of the squamocolumnar junction. No varices were seen. There was a moderately obstructive fibrous appearing stricture at this level consistent with reflux etiology. The 9 mm gastroscope passed through this with slight resistance. Just distal to this was a small hiatal hernia. The endoscope was advanced in the stomach which was carefully examined including retroflexed view of the cardia and fundus. There was some mild gastritis changes in the antrum but no ulcer seen. The pyloric channel, duodenal bulb, second and third portion of the duodenum were normal. The endoscope was withdrawn back into the antrum. Spring-tipped guidewire was advanced into the antrum under endoscopic visualization with the endoscope then removed. Savory dilators sizes 12.8 mm, 14 mm, and 16 mm were advanced over the wire sequentially beyond the level of the GE junction with mild resistance encountered. No blood was noted on the dilator afterwards and he had no chest pain. He appeared to tolerate the procedure well. Impression: #1 distal esophageal stricture secondary to GERD-status post savory dilation #2 small hiatal hernia #3 mild gastritis #4 no source for significant blood loss noted Recommendations: Follow symptomatically after esophageal dilation. He will need colonoscopy at some point to evaluate anemia/blood in stool when he can tolerate bowel preparation. esophageal stricture------------------------------> F Anesthesia: MAC Surgeon / Physician: Darryl Ray Estimated blood loss: minimal Specimens: none sent Condition: stable Disposition: post procedure unit Results - Labs CBC & BMP: 06/17/16 05:50 06/17/16 05:50 Discharge Plan - Discharge Medications No Action Apixaban [Eliquis] 5 mg PO BID #60 tablet Aspirin Chew Tab 81 mg PO DAILY tablet Losartan [Cozaar] 25 mg PO DAILY #30 tablet Magnesium Oxide 800 mg PO BID #60 tablet Nitroglycerin Sl Tab [Nitrostat] 0.4 mg SL Q5M PRN #30 tablet PRN Reason: Chest Pain Sotalol [Betapace] 80 mg PO BID #60 tablet Spironolactone [Aldactone] 50 mg PO DAILY #30 tablet Diltiazem Cd Cap [Cardizem CD] 180 mg PO DAILY #30 capsule Furosemide Tab [Lasix Tab] 40 mg PO BID DIURETIC #60 tablet Levothyroxine Tab [Synthroid Tab] 75 mcg PO DAILY@0700 Furosemide [Lasix] 40 mg PO BID Potassium Chloride 20 meq PO BID - Follow Up or Referral - Forms/Instructions
--- NOTE | 2016-06-17 15:22 | Anesthesia ---
Anesthesia Post OP - Post Ansesthetic Evaluation Patient seen in post op: Yes Resp: within normal limits CV: within normal limits Mental: within normal limits Temp: within normal limits [id number]: within normal limits Nausea and Vomiting: within normal limits Pain: within normal limits
--- NOTE | 2016-06-17 16:17 | Nephrology Progress Note ---
Nephrology - PN: Subj Interval history: He is awake and alert. He denies shortness of breath. Exam (PN)-Nephrology - Vital Signs Vital signs: Period Temp Pulse Resp BP Sys/Mcbride Pulse Ox Last 24 Hr 97.0 F-97.8 F 99-115 12-77 46-165/26-98 92-100 Exam: ENT: Normal Cardiovascular: Regular rate and rhythm. No murmur rub or gallop Lungs: Clear Extremities: No edema - Lab 06/17/16 05:50 06/17/16 05:50 Most recent lab results Calcium 8.2 MG/DL (8.5-10.1) L 06/17/16 05:50 Phosphorus 2.1 MG/DL (2.5-4.9) L 06/17/16 05:50 Magnesium 2.1 MG/DL (1.8-2.4) 06/17/16 05:50 Assessment and Plan (1) Acute renal failure Status: Acute Assessment and plan: 60-year-old man admitted with: * ARF. This is due to a combination of hypotension, volume depletion, and ARB. Renal function is improving * Anemia. Transfusion * Chronic liver disease * History of hypertension * Paroxysmal A. fib * Cardiomyopathy * Ethanol abuse * Peptic ulcer disease Current Visit: Yes (2) Anemia Status: Acute Current Visit: Yes (3) Hypotension Status: Acute Current Visit: Yes Qualifiers: Hypotension type: other hypotension type Qualified Code(s): I95.89 - Other hypotension (4) Obstructive sleep apnea Status: Chronic Current Visit: Yes (5) Alcohol abuse Status: Chronic Current Visit: Yes (6) Ascites Status: Chronic Current Visit: Yes Qualifiers: Ascites type: due to alcoholic cirrhosis Qualified Code(s): K70.31 - Alcoholic cirrhosis of liver with ascites (7) NICM (nonischemic cardiomyopathy) Problem details: improved EF per updated ECHO Status: Chronic Current Visit : Yes (8) Paroxysmal atrial fibrillation Status: Chronic Current Visit: Yes
[2016-06-17] MEDS: DESITIN 4OZ/NYSTATIN 15 GRAM MIXTURE PASTE TOP SCH ×2 (18:28→21:21)
--- NOTE | 2016-06-17 21:04 | Internal Med Progress Note ---
Assessment and Plan (1) Acute renal failure Status: Acute Current Visit: Yes (2) Alcohol abuse Status: Chronic Current Visit: Yes (3) Ascites Status: Chronic Current Visit: Yes Qualifiers: Ascites type: due to alcoholic cirrhosis Qualified Code(s): K70.31 - Alcoholic cirrhosis of liver with ascites (4) Elevated liver enzymes Status: Chronic Current Visit: Yes (5) Failure to thrive Status: Chronic Current Visit: Yes (6) Hypotension Status: Acute Current Visit: Yes Qualifiers: Hypotension type: other hypotension type Qualified Code(s): I95.89 - Other hypotension (7) NICM (nonischemic cardiomyopathy) Problem details: improved EF per updated ECHO Status: Chronic Current Visit : Yes (8) Acute pancreatitis Status: Acute Current Visit: Yes Qualifiers: Pancreatitis type: alcohol induced (9) Obstructive sleep apnea Status: Chronic Current Visit: Yes (10) Thrombocytopenia Status: Acute Current Visit: Yes Internal Medicine - PN: Subj Interval history: Mr. Tracy is a 60 year old male with history of dilated cardiomyopathy with EF 25%, diastolic dysfunction, sinus tachy debra syndrome with pacemaker placement, DM, liver cirrhosis, alcoholism, hypothyroidism, paroxysmal atrial fibrillation, who presented to ER with profound and worsening weakness. He was found to have pancreatitis, liver failure, and possibly hepatorenal syndrome. He is in renal failure. He reported to ER that he has not been eating/drinking over several days, except for drinking alcohol. He admits to alcoholism as reported by ER. Admitted to ICU with severe anemia and receiving blood transfusion. He, also, is found to be hyponatremic. History of ascites and abdominal x-ray ordered for morning. Failure to thrive. He has history of medical noncompliance. ECHO shows much improved left ventricular EF of 60% and improved pulmonary hypertension. Will increase fluid rate to better treat acute pancreatitis. Fluids will help renal function, also. Have started a lower dose of Synthroid, because uncertain whether he has taken the 75 mcg dose. He told ER that he was taking his meds while drinking alcohol every day. Today, , he is doing better. Pancreatitis improving. Increasing Synthroid to home med dose of 75 mcg daily. Continuing current treatment. Exam (Progress Note) - Constitutional Vitals: Period Temp Pulse Resp BP Sys/Mcbride Pulse Ox Last 24 Hr 97.0 F-98.0 F 101-117 12-77 68-165/38-98 94-100 Exam: General appearance: no acute distress - Respiratory Respiratory exam: Present: clear to auscultation bilaterally - Cardiovascular Cardiovascular exam: Present: tachycardia - GI/Abdominal GI/Abdominal exam: Present: distended - Extremities Exam Extremities exam: Absent: edema - Neurological Exam Neurological exam: Present: more alert - Psychiatric Psychiatric exam: Present: depressed, flat affect - Skin Skin exam: Present: dry, rash (forehead and scalp) improved Vitals reviewed. Results - Labs CBC & BMP: 06/17/16 05:50 06/17/16 05:50 Quality Measures - VTE Contraindication to Pharmacological VTE Prophylaxis: Active Bleeding
[2016-06-17] MEDS: FAMOTIDINE 20 MG/2 ML VIAL IV SCH (23:54)
[2016-06-18] MEDS: METOPROLOL TARTRATE 5 MG/5 ML VIAL IV PRN ×3 (01:00→09:41)
[2016-06-18] MEDS: ALBUTEROL/IPRATROPIUM 3 ML NEB RESP TX SCH ×4 (01:57→19:04)
[2016-06-18] MEDS: PHENYLEPHRINE DRIP 40 MG/250 ML PREMIX IV PRN ×4 (03:38→17:45)
[2016-06-18 06:05] LABS: Basophils % 0.4 % (0.0-0.8); Eosinophils # 0.3 10*3/uL (0.0-0.87); Eosinophils % 3.1 % (0.00-10.9); Hematocrit 28.8 VOL% (42.0-52.0); Hemoglobin 9.2 GM/DL (14.0-18.0); Immature Granulocytes % 1.1 %; Immature Granulocytes Absolute 0.09 #; Lymphocytes # 1.4 10*3/uL (1.4-4.0); Lymphocytes % 16.6 % (21.2-54.2); Mean Corpuscular HGB Conc 31.9 GM/DL (32-36); Mean Corpuscular Hemoglobin 34 PG (27-34); Mean Corpuscular Volume 106.3 FL (87-102); Mean Platelet Volume 9.9 FL (9.6-12.0); Monocytes % 12.2 % (1.7-12.7); Neutrophils # 5.6 10*3/uL (1.4-7.4); Neutrophils % 66.6 % (38.7-73.9); Platelet Count 114 T/CUMM (130-400); Red Blood Count 2.71 MC/CUMM (3.8-5.5); Red Cell Distribution Width 16.5 % (9.3-17.3); White Blood Count 8.4 T/CUMM (4-12)
[2016-06-18 06:46] LABS: Albumin 2.3 G/DL (3.4-5.0); Bilirubin,Total 2.2 MG/DL (0.2-1.0); Calcium 8.2 MG/DL (8.5-10.1); Osmolality,Calculated 285.4 MOS/KG (273-304); Potassium 3.8 MMOL/L (3.5-5.1); Total Protein 4.8 G/DL (6.4-8.3)
[2016-06-18] MEDS: LEVOTHYROXINE 75 MCG TABLET PO SCH (07:12)
[2016-06-18] MEDS: HALOPERIDOL 5 MG/ML AMP IM SCH ×3 (07:12→17:27)
--- NOTE | 2016-06-18 08:36 | Post Interventional Procedure ---
Pre-op diagnosis: Etoh w/d, pancreatitis, hypotension on pressors, no PIV access Post-op diagnosis: same Procedure: PICC RUE Flouroscopy: 0.1 min Radiologist: Carlos Paniagua Anesthesia: local Specimens: none sent Estimated blood loss: none Complications: none Condition: stable
[2016-06-18] MEDS: INSULIN REGULAR 100 UNIT/ML SUBCUT SCH ×4 (09:16→21:34)
[2016-06-18] MEDS: LACTULOSE 20 GM/30 ML UDCUP PO SCH ×4 (09:21→21:34)
[2016-06-18] MEDS: METOPROLOL TARTRATE 100 MG TABLET PO SCH ×3 (09:21→21:33)
[2016-06-18] MEDS: DESITIN 4OZ/NYSTATIN 15 GRAM MIXTURE PASTE TOP SCH ×2 (09:22→21:35)
[2016-06-18] MEDS: NYSTATIN CREAM 15 GM TUBE TOP SCH ×2 (09:23→21:40)
--- NOTE | 2016-06-18 10:33 | Gastrointestinal Progress Note ---
Assessment and Plan (1) Anemia Status: Acute Assessment and plan: 06/18-Hgb stable at 9.2 w/o overt bleeding. PICC line placed today. Pressor support started. EGD findings noted. Continue to monitor HH and transfuse as needed. Plan and addendum to follow by Dr Ray. 06/16-Findings on admission of hgb 7.8, no reports of overt bleeding. No known prior endoscopy. Noted to be on Eliquis prior to admission for A-fib, held at present time. Continue to monitor HH. Plan and addendum to follow by Dr Ray. Current Visit: Yes Gastroenterology - PN: Subj Interval history: CC: Anemia, GI bleed, dysphagia Pt is awake and alert, states that he is feeling some better at this time. Abdomen is soft, nontender. He is post EGD with stricture and dilation, small HH and mild gastritis with no source for blood loss found. His hemoglobin is stable at 9.2. Lipase is trending down at 1033 today. Two bowel movements noted on yesterday without overt bleeding reported. He had PICC line placement this morning. He is currently on pressor support. Ammonia level is down at 24. He is noted to have some shaking episodes but no reports of withdrawal seizure activity. ROS: Denies SOB or chest pain Exam (Progress Note) - Constitutional Vitals: Period Temp Pulse Resp BP Sys/Mcbride Pulse Ox Last 24 Hr 97.5 F-99.5 F 101-135 12-28 71-154/38-133 94-100 - Other Additional findings: General appearance: no acute distress, over weight - Head Head exam: Present: normal inspection, normocephalic - Eye Eye exam: Present: scleral icterus, other (lids and conjunctiva unremarkable) - ENT ENT exam: Present: normal exam, normal oropharynx - Neck Neck exam: Present: normal inspection - Respiratory Respiratory exam: Present: clear to auscultation bilaterally. Absent: rales, rhonchi, wheezes - Cardiovascular Cardiovascular exam: Present: regular rate and rhythm. Absent: diastolic murmur , JVD, systolic murmur - GI/Abdominal GI/Abdominal exam: Present: normal bowel sounds, soft. Absent: ascites, distended, mass, organomegaly - Extremities Exam Extremities exam: Present: normal inspection, full ROM - Back Exam Back exam: Present: normal inspection - Neurological Exam Neurological exam: Present: alert, oriented X3 - Psychiatric Psychiatric exam: Present: normal affect, normal mood - Skin Skin exam: Present: normal color, warm, dry Results - Labs CBC & BMP: 06/18/16 05:43 06/18/16 05:43 Lab Results: I have reviewed the past 24 hour labs
--- NOTE | 2016-06-18 11:07 | Interventional Radiology Rpt ---
IR PICC line insertion, Consult to Interventional Rad, US guide vascular access Indication: Alcohol withdrawal. Pancreatitis. Hypotension on pressors. No peripheral IV access. PICC LINE Description: A formal timeout was performed. Maximum sterile barrier technique was used. Sonographic evaluation of the right upper extremity demonstrates patent and compressible basilic vein. The upper arm was prepped and draped in sterile fashion. 3 cc 1% lidocaine was administered subcutaneously. Under sonographic guidance, a micropuncture needle was advanced into the vein. A captured sonographic image documents the position of the needle. Needle was exchanged over a wire for a peel-away sheath. A dual lumen power PICC, cut to 42 cm, was advanced over the wire until the tip was at the RA-SVC junction. The position of the catheter was confirmed with fluoroscopic guidance and an image stored in PACS. The wire and sheath were removed. Both ports of the PICC were aspirated and flushed with heparinized saline. The device was secured with a StatLock. Fluoroscopy: 0.1 minute, one captured image. Impression: PICC line ready for immediate use. Routine catheter care. PROCEDURE INTERPRETED AT [facility] DEPARTMENT OF RADIOLOGY Final Report Signed by: Carlos Paniagua M.D.
--- NOTE | 2016-06-18 11:47 | Nephrology Progress Note ---
Nephrology - PN: Subj Interval history: He is alert. He denies shortness of breath. Systolic blood pressure was low in the 90s last night Exam (PN)-Nephrology - Vital Signs Vital signs: Period Temp Pulse Resp BP Sys/Mcbride Pulse Ox Last 24 Hr 97.5 F-99.5 F 101-135 12-28 71-154/38-133 94-100 Exam: ENT: Normal Cardiovascular: Regular rate and rhythm. No murmur rub or gallop Lungs: Clear Extremities: No edema - Lab 06/18/16 05:43 06/18/16 05:43 Most recent lab results Calcium 8.2 MG/DL (8.5-10.1) L 06/18/16 05:43 Phosphorus 2.1 MG/DL (2.5-4.9) L 06/17/16 05:50 Magnesium 2.1 MG/DL (1.8-2.4) 06/17/16 05:50 Assessment and Plan (1) Acute renal failure Status: Acute Assessment and plan: 60-year-old man admitted with: * ARF. Resolved * Anemia. Transfusion * Chronic liver disease * History of hypertension * Paroxysmal A. fib * Cardiomyopathy * Ethanol abuse * Peptic ulcer disease Current Visit: Yes (2) Anemia Status: Acute Current Visit: Yes (3) Hypotension Status: Acute Current Visit: Yes Qualifiers: Hypotension type: other hypotension type Qualified Code(s): I95.89 - Other hypotension (4) Obstructive sleep apnea Status: Chronic Current Visit: Yes (5) Alcohol abuse Status: Chronic Current Visit: Yes (6) Ascites Status: Chronic Current Visit: Yes Qualifiers: Ascites type: due to alcoholic cirrhosis Qualified Code(s): K70.31 - Alcoholic cirrhosis of liver with ascites (7) NICM (nonischemic cardiomyopathy) Problem details: improved EF per updated ECHO Status: Chronic Current Visit : Yes (8) Paroxysmal atrial fibrillation Status: Chronic Current Visit: Yes
--- NOTE | 2016-06-18 15:09 | Internal Med Progress Note ---
Assessment and Plan (1) Acute renal failure Status: Resolved Current Visit: Yes (2) Alcohol abuse Status: Chronic Current Visit: Yes (3) Ascites Status: Chronic Current Visit: Yes Qualifiers: Ascites type: due to alcoholic cirrhosis Qualified Code(s): K70.31 - Alcoholic cirrhosis of liver with ascites (4) Elevated liver enzymes Status: Chronic Current Visit: Yes (5) Failure to thrive Status: Chronic Current Visit: Yes (6) Hypotension Status: Acute Current Visit: Yes Qualifiers: Hypotension type: other hypotension type Qualified Code(s): I95.89 - Other hypotension (7) NICM (nonischemic cardiomyopathy) Problem details: improved EF per updated ECHO Status: Chronic Current Visit : Yes (8) Acute pancreatitis Status: Acute Current Visit: Yes Qualifiers: Pancreatitis type: alcohol induced (9) Obstructive sleep apnea Status: Chronic Current Visit: Yes (10) Thrombocytopenia Status: Acute Current Visit: Yes Internal Medicine - PN: Subj Interval history: Mr. Tracy is a 60 year old male with history of dilated cardiomyopathy with EF 25%, diastolic dysfunction, sinus tachy debra syndrome with pacemaker placement, DM, liver cirrhosis, alcoholism, hypothyroidism, paroxysmal atrial fibrillation, who presented to ER with profound and worsening weakness. He was found to have pancreatitis, liver failure, and possibly hepatorenal syndrome. He is in renal failure. He reported to ER that he has not been eating/drinking over several days, except for drinking alcohol. He admits to alcoholism as reported by ER. Admitted to ICU with severe anemia and receiving blood transfusion. He, also, is found to be hyponatremic. History of ascites and abdominal x-ray ordered for morning. Failure to thrive. He has history of medical noncompliance. ECHO shows much improved left ventricular EF of 60% and improved pulmonary hypertension. Will increase fluid rate to better treat acute pancreatitis. Fluids will help renal function, also. Have started a lower dose of Synthroid, because uncertain whether he has taken the 75 mcg dose. He told ER that he was taking his meds while drinking alcohol every day. Today, , he is doing better. Pancreatitis improving. Increasing Synthroid to home med dose of 75 mcg daily. Continuing current treatment. Tuesday, lipase level trending down, and will give him full liquids tomorrow. Doing better. Increasing Metoprolol. Exam (Progress Note) - Constitutional Vitals: Period Temp Pulse Resp BP Sys/Mcbride Pulse Ox Last 24 Hr 97.9 F-99.5 F 101-135 12-27 76-154/51-133 94-100 Exam: General appearance: no acute distress - Respiratory Respiratory exam: Present: clear to auscultation bilaterally - Cardiovascular Cardiovascular exam: Present: tachycardia - GI/Abdominal GI/Abdominal exam: Present: distended - Extremities Exam Extremities exam: Absent: edema - Neurological Exam Neurological exam: Present: more alert - Psychiatric Psychiatric exam: Present: depressed, flat affect - Skin Skin exam: Present: dry, rash (forehead and scalp) improved Vitals reviewed. Results - Labs CBC & BMP: 06/18/16 05:43 06/18/16 05:43 Quality Measures - VTE Contraindication to Pharmacological VTE Prophylaxis: Active Bleeding
[2016-06-18] MEDS: METOPROLOL TARTRATE 25 MG TABLET PO SCH ×2 (18:40→21:33)
[2016-06-18] MEDS: MIDODRINE 5 MG TABLET PO SCH (21:33)
[2016-06-18] MEDS: KETOCONAZOLE 2% SHAMPOO 120 ML BOTTLE TOP SCH (21:41)
[2016-06-18] MEDS: FAMOTIDINE 20 MG/2 ML VIAL IV SCH (23:59)
[2016-06-19] MEDS: HALOPERIDOL 5 MG/ML AMP IM SCH ×3 (00:03→12:40)
[2016-06-19] MEDS: ALBUTEROL/IPRATROPIUM 3 ML NEB RESP TX SCH ×4 (00:42→19:14)
[2016-06-19 05:46] LABS: Basophils % 0.5 % (0.0-0.8); Eosinophils # 0.2 10*3/uL (0.0-0.87); Hematocrit 26.8 VOL% (42.0-52.0); Hemoglobin 8.4 GM/DL (14.0-18.0); Immature Granulocytes % 1.6 %; Lymphocytes # 1.2 10*3/uL (1.4-4.0); Lymphocytes % 18.7 % (21.2-54.2); Mean Corpuscular HGB Conc 31.3 GM/DL (32-36); Mean Corpuscular Hemoglobin 34 PG (27-34); Mean Corpuscular Volume 109.4 FL (87-102); Mean Platelet Volume 10.1 FL (9.6-12.0); Monocytes # 0.8 10*3/uL (0.11-0.8); Monocytes % 13.1 % (1.7-12.7); Neutrophils % 63.1 % (38.7-73.9); Platelet Count 112 T/CUMM (130-400); Red Blood Count 2.45 MC/CUMM (3.8-5.5); Red Cell Distribution Width 16.2 % (9.3-17.3); White Blood Count 6.3 T/CUMM (4-12)
[2016-06-19 06:23] LABS: Albumin 2.3 G/DL (3.4-5.0); Bilirubin,Total 1.6 MG/DL (0.2-1.0); Calcium 8.1 MG/DL (8.5-10.1); Osmolality,Calculated 285.1 MOS/KG (273-304); Potassium 4.1 MMOL/L (3.5-5.1); Total Protein 4.5 G/DL (6.4-8.3)
[2016-06-19] MEDS: LEVOTHYROXINE 75 MCG TABLET PO SCH (06:39)
[2016-06-19] MEDS: INSULIN REGULAR 100 UNIT/ML SUBCUT SCH ×5 (08:33→23:45)
[2016-06-19] MEDS: LACTULOSE 20 GM/30 ML UDCUP PO SCH ×2 (08:44→21:44)
[2016-06-19] MEDS: METOPROLOL TARTRATE 100 MG TABLET PO SCH ×2 (08:45→21:43)
[2016-06-19] MEDS: NYSTATIN CREAM 15 GM TUBE TOP SCH ×2 (08:45→21:45)
[2016-06-19] MEDS: MIDODRINE 5 MG TABLET PO SCH ×2 (08:45→21:44)
[2016-06-19] MEDS: DESITIN 4OZ/NYSTATIN 15 GRAM MIXTURE PASTE TOP SCH ×2 (08:45→21:45)
[2016-06-19] MEDS: METOPROLOL TARTRATE 25 MG TABLET PO SCH ×2 (08:45→21:43)
[2016-06-19] MEDS ORDERED: chlordiazePOXIDE 25 MG CAPSULE PO PRN (10:59)
[2016-06-19] MEDS ORDERED: SODIUM CHLORIDE 0.9% 250 ML IV PRN (11:11)
--- NOTE | 2016-06-19 12:05 | Gastrointestinal Progress Note ---
Assessment and Plan - Time spent with patient Time spent with patient: Greater than 30 minutes (1) Anemia Status: Acute Current Visit: Yes (2) Alcoholic cirrhosis Status: Acute Current Visit: Yes (3) Other specified counseling Status: Acute Current Visit: Yes Exam (Progress Note) - Constitutional Vitals: Period Temp Pulse Resp BP Sys/Mcbride Pulse Ox Last 24 Hr 97.0 F-98.9 F 107-116 12-27 67-148/51-115 92-100 Results - Labs CBC & BMP: 06/19/16 05:40 06/19/16 05:40 Note Addendum: PLEASE NOTE -- automatic citation of patient information is unavoidable in this electronic note. I have made a reasonable effort to review the information cited , but it is not a part of my evaluation, impression, or recommendation unless specifically discussed in the dictated text that follows.~ As well, voice recognition software was used in the creation of this clinical note. Reasonable effort was made to identify and correct gross errors. Despite proofreading, errors in hourly caregiver may be present, including nonsense verbiage at times. If you encounter such an error, please contact me at for discussion and correction. -- Blessing Chief complaint: anemia Subjective: the patient is a 60-year-old male seen for follow-up of anemia in the setting of cirrhosis. The patient underwent upper endoscopy on the with finding of a peptic stricture in the esophagus which was dilated. Varices were not noted at that time nor was there evidence of a culprit lesion in the upper G.I. tract generally. The patient's blood counts have trended down overnight but there has been no overt bleeding noted. Medications: Tylenol, Duoneb, Librium, Pepcid, Haldol, insulin, lactulose, Synthroid, Demerol, Beronica, Toprol, nystatin, Zofran, phenylephrine, banana bag Review of Symptoms: 12 point review of symptoms was negative except as noted above Physical examination: Vital Signs:~ Current vital signs reviewed. General Appearance: lying in bed sleeping. Arousable but somnolent. Head:~ Normocephalic. Eyes: no scleral icterus. No scleral injection. No conjunctival pallor. Oral Cavity:~ Odor of breath was normal.~ No drooling was observed.~ Lips showed no abnormalities. ~ Lungs:~ Respiration rhythm and depth was normal. ~ Cardiovascular:~ Heart rate and rhythm were normal. ~ Abdomen: abdomen was not distended. Abdominal auscultation revealed no abnormalities. Ascites was not discovered. Abdominal palpation revealed no tenderness and no hepatosplenomegaly. Musculoskeletal System: musculoskeletal system was grossly normal. Neurological: sleeping but arrousable. Spontaneous movement of all extremities. Passive Asterix is not elicited Skin: Gen. appearance was normal. Color and pigmentation were normal. No skin lesions were appreciated. Laboratory: white blood count 6.3, hemoglobin 8.4, hematocrit 26.8, platelets 112, ALT 38, AST 121, total bilirubin 1.6, albumin 2.3, alkaline phosphatase 174 Radiology: reviewed with no pertinent changes noted. Impressions: 1. Anemia -- upper endoscopy did not reveal a corporate lesion. The patient will need colonoscopy with timing based on clinical progress. In the interim, I recommend aggressive volume and electrolyte control with continued monitoring of blood counts and transfusion as indicated. 2. Alcoholic cirrhosis -- the patient is improving some with aggressive management. He is not yet compensated. I recommend continued supportive care with volume and electrolyte management. I recommend minimization of potentially hepatotoxicity medications to the greatest extent possible. I recommend continued counseling regarding the importance of alcohol abstinence. The patient will need follow-up in the outpatient setting for continued management of this problem. 3. Patient Counseling:~ Medical Management: Patient seen for greater than 30 minutes. Greater than 50% of this time was spent counseling regarding differential diagnosis, likely diagnosis,, diagnostic and therapeutic options, risks, benefits, and alternatives to procedures and medications, informed consent, and plan of care generally.~ Patient has expressed understanding and wishes to proceed. Recommendations: -- aggressive volume and electrolyte management -- continued monitoring of blood counts with transfusion as indicated -- colonoscopy with timing based on clinical progress -- continue H2 shantelle -- minimize potentially hepatotoxicity medications to the greatest extent possible -- we will continue to follow with you
--- NOTE | 2016-06-19 12:50 | Nephrology Progress Note ---
Nephrology - PN: Subj Interval history: No shortness of breath or GI symptoms today Exam (PN)-Nephrology - Vital Signs Vital signs: Period Temp Pulse Resp BP Sys/Mcbride Pulse Ox Last 24 Hr 97.0 F-98.9 F 107-116 12-24 67-148/51-115 92-100 Exam: ENT: Normal Cardiovascular: Regular rate and rhythm. No murmur rub or gallop Lungs: Clear Extremities: No edema - Lab 06/19/16 05:40 06/19/16 05:40 Most recent lab results Calcium 8.1 MG/DL (8.5-10.1) L 06/19/16 05:40 Phosphorus 2.1 MG/DL (2.5-4.9) L 06/17/16 05:50 Magnesium 2.1 MG/DL (1.8-2.4) 06/17/16 05:50 Assessment and Plan (1) Acute renal failure Status: Resolved Assessment and plan: 60-year-old man admitted with: * ARF. Resolved. I will sign off. Please recall when necessary * Anemia. Transfusion * Chronic liver disease * History of hypertension * Paroxysmal A. fib * Cardiomyopathy * Ethanol abuse * Peptic ulcer disease Current Visit: Yes (2) Anemia Status: Acute Current Visit: Yes (3) Hypotension Status: Acute Current Visit: Yes Qualifiers: Hypotension type: other hypotension type Qualified Code(s): I95.89 - Other hypotension (4) Obstructive sleep apnea Status: Chronic Current Visit: Yes (5) Alcohol abuse Status: Chronic Current Visit: Yes (6) Ascites Status: Chronic Current Visit: Yes Qualifiers: Ascites type: due to alcoholic cirrhosis Qualified Code(s): K70.31 - Alcoholic cirrhosis of liver with ascites (7) NICM (nonischemic cardiomyopathy) Problem details: improved EF per updated ECHO Status: Chronic Current Visit : Yes (8) Paroxysmal atrial fibrillation Status: Chronic Current Visit: Yes
--- NOTE | 2016-06-19 13:13 | Internal Med Progress Note ---
Assessment and Plan (1) Acute renal failure Status: Resolved Current Visit: Yes (2) Alcohol abuse Status: Chronic Current Visit: Yes (3) Ascites Status: Chronic Current Visit: Yes Qualifiers: Ascites type: due to alcoholic cirrhosis Qualified Code(s): K70.31 - Alcoholic cirrhosis of liver with ascites (4) Elevated liver enzymes Status: Chronic Current Visit: Yes (5) Failure to thrive Status: Chronic Current Visit: Yes (6) Hypotension Status: Acute Current Visit: Yes Qualifiers: Hypotension type: other hypotension type Qualified Code(s): I95.89 - Other hypotension (7) NICM (nonischemic cardiomyopathy) Problem details: improved EF per updated ECHO Status: Chronic Current Visit : Yes (8) Acute pancreatitis Status: Resolved Current Visit: Yes Qualifiers: Pancreatitis type: alcohol induced (9) Obstructive sleep apnea Problem details: refusing his mask Status: Chronic Current Visit: Yes (10) Thrombocytopenia Status: Acute Current Visit: Yes Internal Medicine - PN: Subj Interval history: Mr. Tracy is a 60 year old male with history of dilated cardiomyopathy with EF 25%, diastolic dysfunction, sinus tachy debra syndrome with pacemaker placement, DM, liver cirrhosis, alcoholism, hypothyroidism, paroxysmal atrial fibrillation, who presented to ER with profound and worsening weakness. He was found to have pancreatitis, liver failure, and possibly hepatorenal syndrome. He is in renal failure. He reported to ER that he has not been eating/drinking over several days, except for drinking alcohol. He admits to alcoholism as reported by ER. Admitted to ICU with severe anemia and receiving blood transfusion. He, also, is found to be hyponatremic. History of ascites and abdominal x-ray ordered for morning. Failure to thrive. He has history of medical noncompliance. ECHO shows much improved left ventricular EF of 60% and improved pulmonary hypertension. Will increase fluid rate to better treat acute pancreatitis. Fluids will help renal function, also. Have started a lower dose of Synthroid, because uncertain whether he has taken the 75 mcg dose. He told ER that he was taking his meds while drinking alcohol every day. Today, , he is doing better. Pancreatitis improving. Increasing Synthroid to home med dose of 75 mcg daily. Continuing current treatment. Tuesday, lipase level trending down, and will give him full liquids tomorrow. Doing better. Increasing Metoprolol. Tuesday, Adding Librium, a unit of pRBC, and labs for tomorrow. Will speak to his this weekend. Pancreatitis is resolving and will order soft diet today. Still tachycardia, but hoping Librium will help. He is in the window for DTs. He is refusing CPAP (mask). Exam (Progress Note) - Constitutional Vitals: Period Temp Pulse Resp BP Sys/Mcbride Pulse Ox Last 24 Hr 96.9 F-98.9 F 107-116 12-26 67-148/53-115 92-100 Exam: General appearance: no acute distress - Respiratory Respiratory exam: Present: clear to auscultation bilaterally - Cardiovascular Cardiovascular exam: Present: tachycardia - GI/Abdominal GI/Abdominal exam: Present: distended - Extremities Exam Extremities exam: Absent: edema - Neurological Exam Neurological exam: Present: more alert - Psychiatric Psychiatric exam: Present: depressed, flat affect - Skin Skin exam: Present: warm and dry Vitals reviewed. Results - Labs CBC & BMP: 06/19/16 05:40 06/19/16 05:40 Quality Measures - VTE Contraindication to Pharmacological VTE Prophylaxis: Active Bleeding
[2016-06-19] MEDS ORDERED: HALOPERIDOL 5 MG/ML AMP IM PRN (16:32)
[2016-06-19 17:53] LABS: Hematocrit 28.6 VOL% (42.0-52.0)
[2016-06-19] MEDS: chlordiazePOXIDE 25 MG CAPSULE PO SCH (21:44)
[2016-06-20] MEDS: ALBUTEROL/IPRATROPIUM 3 ML NEB RESP TX SCH ×4 (00:59→19:18)
[2016-06-20] MEDS: FAMOTIDINE 20 MG/2 ML VIAL IV SCH (01:18)
[2016-06-20 05:47] LABS: Basophils # 0.1 10*3/uL (0.0-0.2); Basophils % 0.7 % (0.0-0.8); Eosinophils # 0.2 10*3/uL (0.0-0.87); Eosinophils % 3.5 % (0.00-10.9); Hematocrit 29.2 VOL% (42.0-52.0); Hemoglobin 9.3 GM/DL (14.0-18.0); Immature Granulocytes % 1.6 %; Immature Granulocytes Absolute 0.11 #; Lymphocytes # 1.1 10*3/uL (1.4-4.0); Lymphocytes % 15.3 % (21.2-54.2); Mean Corpuscular HGB Conc 31.8 GM/DL (32-36); Mean Corpuscular Hemoglobin 34 PG (27-34); Mean Platelet Volume 10.2 FL (9.6-12.0); Monocytes # 0.9 10*3/uL (0.11-0.8); Monocytes % 13.4 % (1.7-12.7); Neutrophils # 4.5 10*3/uL (1.4-7.4); Neutrophils % 65.5 % (38.7-73.9); Platelet Count 135 T/CUMM (130-400); Red Blood Count 2.73 MC/CUMM (3.8-5.5); Red Cell Distribution Width 16.9 % (9.3-17.3); White Blood Count 6.9 T/CUMM (4-12)
[2016-06-20 06:16] LABS: Albumin 2.2 G/DL (3.4-5.0); Calcium 7.9 MG/DL (8.5-10.1); Potassium 4.1 MMOL/L (3.5-5.1); Total Protein 4.5 G/DL (6.4-8.3)
--- NOTE | 2016-06-20 06:22 | Gastrointestinal Progress Note ---
Assessment and Plan (1) Anemia Status: Acute Current Visit: Yes (2) Alcoholic cirrhosis Status: Acute Current Visit: Yes (3) Other specified counseling Status: Acute Current Visit: Yes Exam (Progress Note) - Constitutional Vitals: Period Temp Pulse Resp BP Sys/Mcbride Pulse Ox Last 24 Hr 96.9 F-98.7 F 111-116 12-26 86-167/58-115 94-100 Results - Labs CBC & BMP: 06/20/16 05:30 06/20/16 05:30 Note Addendum: PLEASE NOTE -- automatic citation of patient information is unavoidable in this electronic note. I have made a reasonable effort to review the information cited , but it is not a part of my evaluation, impression, or recommendation unless specifically discussed in the dictated text that follows.~ As well, voice recognition software was used in the creation of this clinical note. Reasonable effort was made to identify and correct gross errors. Despite proofreading, errors in management tech may be present, including nonsense verbiage at times. If you encounter such an error, please contact me at for discussion and correction. -- Blessing Chief complaint: anemia Subjective: the patient is a 60-year-old male seen for follow-up of anemia in the setting of cirrhosis. The patient's blood counts have remained stable. No overt bleeding has been noted. Medications: Tylenol, Duoneb, Librium, Pepcid, Haldol, insulin, lactulose, Synthroid, Demerol, Beronica, Toprol, nystatin, Zofran, phenylephrine, banana bag Review of Symptoms: 12 point review of symptoms was negative except as noted above Physical examination: Vital Signs:~ Current vital signs reviewed. General Appearance: lying in bed sleeping. Arousable but somnolent. Head:~ Normocephalic. Eyes: no scleral icterus. No scleral injection. No conjunctival pallor. Oral Cavity:~ Odor of breath was normal.~ No drooling was observed.~ Lips showed no abnormalities. ~ Lungs:~ Respiration rhythm and depth was normal. ~ Cardiovascular:~ Heart rate and rhythm were normal. ~ Abdomen: abdomen was not distended. Abdominal auscultation revealed no abnormalities. Ascites was not discovered. Abdominal palpation revealed no tenderness and no hepatosplenomegaly. Musculoskeletal System: musculoskeletal system was grossly normal. Neurological: sleeping but arrousable. Spontaneous movement of all extremities. Passive Asterix is not elicited Skin: Gen. appearance was normal. Color and pigmentation were normal. No skin lesions were appreciated. Laboratory: White blood count 6.9, hemoglobin 9.3, hematocrit 29.2, platelets 135, ALT 38, AST 127, bilirubin 2.0, alkaline phosphatase 174, lipase 561 Radiology: reviewed with no pertinent changes noted. Impressions: 1. Anemia -- upper endoscopy did not reveal a culprit lesion. The patient will need colonoscopy with timing based on clinical progress. 2. Alcoholic cirrhosis -- the patient is not yet compensated. I recommend continued supportive care as previously discussed. The patient will need follow -up in the outpatient setting for continued management of this problem. 3. Patient Counseling:~ Medical Management: Patient seen for less than 30 minutes. Greater than 50% of this time was spent counseling regarding differential diagnosis, likely diagnosis,, diagnostic and therapeutic options, risks, benefits, and alternatives to procedures and medications, informed consent, and plan of care generally.~ Patient has expressed understanding and wishes to proceed. Recommendations: -- aggressive volume and electrolyte management -- continued monitoring of blood counts with transfusion as indicated -- colonoscopy with timing based on clinical progress -- continue H2 shantelle -- minimize potentially hepatotoxicity medications to the greatest extent possible -- we will continue to follow with you
[2016-06-20] MEDS: INSULIN REGULAR 100 UNIT/ML SUBCUT SCH ×3 (06:33→18:18)
[2016-06-20] MEDS: LEVOTHYROXINE 75 MCG TABLET PO SCH (07:12)
[2016-06-20] MEDS: chlordiazePOXIDE 25 MG CAPSULE PO SCH ×3 (08:34→21:41)
[2016-06-20] MEDS: METOPROLOL TARTRATE 25 MG TABLET PO SCH ×2 (08:35→21:41)
[2016-06-20] MEDS: METOPROLOL TARTRATE 100 MG TABLET PO SCH ×2 (08:35→21:41)
[2016-06-20] MEDS: NYSTATIN CREAM 15 GM TUBE TOP SCH ×2 (08:35→21:41)
[2016-06-20] MEDS: MIDODRINE 5 MG TABLET PO SCH ×2 (08:35→21:41)
[2016-06-20] MEDS: DESITIN 4OZ/NYSTATIN 15 GRAM MIXTURE PASTE TOP SCH ×2 (08:36→21:42)
[2016-06-20] MEDS: LACTULOSE 20 GM/30 ML UDCUP PO SCH ×2 (09:08→21:41)
[2016-06-20] MEDS: MEPERIDINE 25 MG/1 ML VIAL IV PRN (09:23)
--- NOTE | 2016-06-20 12:32 | Internal Med Progress Note ---
Assessment and Plan (1) Alcohol abuse Status: Chronic Current Visit: Yes (2) Ascites Status: Chronic Current Visit: Yes Qualifiers: Ascites type: due to alcoholic cirrhosis Qualified Code(s): K70.31 - Alcoholic cirrhosis of liver with ascites (3) Elevated liver enzymes Status: Chronic Current Visit: Yes (4) Failure to thrive Status: Chronic Current Visit: Yes (5) Hypotension Status: Acute Current Visit: Yes Qualifiers: Hypotension type: other hypotension type Qualified Code(s): I95.89 - Other hypotension (6) NICM (nonischemic cardiomyopathy) Problem details: improved EF per updated ECHO Status: Chronic Current Visit : Yes (7) Acute pancreatitis Status: Resolved Current Visit: Yes Qualifiers: Pancreatitis type: alcohol induced (8) Obstructive sleep apnea Problem details: refusing his mask Status: Chronic Current Visit: Yes (9) Thrombocytopenia Status: Resolved Current Visit: Yes Internal Medicine - PN: Subj Interval history: Mr. Tracy is a 60 year old male with history of dilated cardiomyopathy with EF 25%, diastolic dysfunction, sinus tachy debra syndrome with pacemaker placement, DM, liver cirrhosis, alcoholism, hypothyroidism, paroxysmal atrial fibrillation, who presented to ER with profound and worsening weakness. He was found to have pancreatitis, liver failure, and possibly hepatorenal syndrome. He is in renal failure. He reported to ER that he has not been eating/drinking over several days, except for drinking alcohol. He admits to alcoholism as reported by ER. Admitted to ICU with severe anemia and receiving blood transfusion. He, also, is found to be hyponatremic. History of ascites and abdominal x-ray ordered for morning. Failure to thrive. He has history of medical noncompliance. ECHO shows much improved left ventricular EF of 60% and improved pulmonary hypertension. Will increase fluid rate to better treat acute pancreatitis. Fluids will help renal function, also. Have started a lower dose of Synthroid, because uncertain whether he has taken the 75 mcg dose. He told ER that he was taking his meds while drinking alcohol every day. Today, , he is doing better. Pancreatitis improving. Increasing Synthroid to home med dose of 75 mcg daily. Continuing current treatment. Tuesday, lipase level trending down, and will give him full liquids tomorrow. Doing better. Increasing Metoprolol. Tuesday, Adding Librium, a unit of pRBC, and labs for tomorrow. Will speak to his this weekend. Pancreatitis is resolving and will order soft diet today. Still tachycardia, but hoping Librium will help. He is in the window for DTs. He is refusing CPAP (mask). Tuesday, adding Midodrine and Cardizem IV infusion to help bring down heart rate. Refractory. Discussed case with . She wants treatment center for him when he is medically stable. Exam (Progress Note) - Constitutional Vitals: Period Temp Pulse Resp BP Sys/Mcbride Pulse Ox Last 24 Hr 96.9 F-98.7 F 109-117 12-26 91-167/37-99 94-100 Exam: General appearance: no acute distress - Respiratory Respiratory exam: Present: clear to auscultation bilaterally - Cardiovascular Cardiovascular exam: Present: tachycardia - GI/Abdominal GI/Abdominal exam: Present: distended - Extremities Exam Extremities exam: Absent: edema - Neurological Exam Neurological exam: Present: somnolent - Psychiatric Psychiatric exam: Present: depressed, flat affect - Skin Skin exam: Present: warm and dry Vitals reviewed. Results - Labs CBC & BMP: 06/20/16 05:30 06/20/16 05:30 Quality Measures - VTE Contraindication to Pharmacological VTE Prophylaxis: Active Bleeding
[2016-06-20] MEDS: MEGESTROL 400 MG/10 ML UDCUP PO SCH ×2 (13:37→21:41)
[2016-06-20] MEDS: DILTIAZEM 30 MG TABLET PO SCH (13:37)
[2016-06-20] MEDS: DILTIAZEM INJ 100 MG in SODIUM CHLORIDE 0.9% 100 ML IV SCH (15:31)
[2016-06-21] MEDS: INSULIN REGULAR 100 UNIT/ML SUBCUT SCH ×4 (00:17→18:38)
[2016-06-21] MEDS: ALBUTEROL/IPRATROPIUM 3 ML NEB RESP TX SCH ×4 (01:14→19:33)
[2016-06-21] MEDS: FAMOTIDINE 20 MG/2 ML VIAL IV SCH (01:31)
[2016-06-21 05:31] LABS: Basophils % 0.6 % (0.0-0.8); Eosinophils # 0.2 10*3/uL (0.0-0.87); Eosinophils % 2.4 % (0.00-10.9); Hematocrit 26.9 VOL% (42.0-52.0); Hemoglobin 8.6 GM/DL (14.0-18.0); Immature Granulocytes % 1.8 %; Immature Granulocytes Absolute 0.11 #; Lymphocytes # 1.1 10*3/uL (1.4-4.0); Lymphocytes % 17.3 % (21.2-54.2); Mean Corpuscular Hemoglobin 34 PG (27-34); Mean Corpuscular Volume 104.7 FL (87-102); Mean Platelet Volume 10.3 FL (9.6-12.0); Neutrophils # 3.8 10*3/uL (1.4-7.4); Neutrophils % 61.9 % (38.7-73.9); Platelet Count 153 T/CUMM (130-400); Red Blood Count 2.57 MC/CUMM (3.8-5.5); Red Cell Distribution Width 16.7 % (9.3-17.3); White Blood Count 6.2 T/CUMM (4-12)
[2016-06-21 05:55] LABS: Eosinophils 1 % (0-10); Lymphocytes 15 % (20-55); Macrocytosis 1+; Platelet Estimate Adequate; Promyelocytes 1 %; Segmented Neutrophils 71 % (50-85); Total Cells Counted 100
[2016-06-21 06:04] LABS: Albumin 1.8 G/DL (3.4-5.0); Bilirubin,Total 1.6 MG/DL (0.2-1.0); Calcium 7.3 MG/DL (8.5-10.1); Osmolality,Calculated 287.6 MOS/KG (273-304); Potassium 3.8 MMOL/L (3.5-5.1)
[2016-06-21 06:07] LABS: Troponin I Only < 0.015 NG/ML (0.00-0.045)
[2016-06-21] MEDS: LEVOTHYROXINE 75 MCG TABLET PO SCH (06:41)
--- NOTE | 2016-06-21 08:30 | Cardiology Consult Note ---
<Risa Hannon E - Last Filed: 06/21/16 08:15> Assessment and Plan - Time spent with patient Time spent with patient: Greater than 30 minutes (due to assessment, plan, and documentation) (1) Atrial flutter Status: Acute Assessment and plan: Currently remains in atrial flutter with rates 100s-120s. Continue IV Cardizem. Will discuss adjustment of medications with Dr. Butcher. We will recheck EKG and if QT interval is acceptable, will restart his sotalol. Current Visit: No (2) Paroxysmal atrial fibrillation Status: Chronic Assessment and plan: Currently in atrial flutter with elevated HR's. On IV and PO cardizem in addition to PO metoprolol. Will discuss with Dr. Butcher and make adjustments. He was previously on aspirin and Eliquis for stroke prevention. These are being held due to his profound anemia. He has required transfusion of 3 units PRBCs this admission, last transfusion on 06/19/2016. Current Visit: Yes (3) CHF (congestive heart failure) Status: Acute Assessment and plan: Echocardiogram revealed EF 60%, grade I/IV diastolic dysfunction. Clinically, he looks stable from a CHF standpoint. Current Visit: No Qualifiers: Congestive heart failure type: systolic Congestive heart failure chronicity : acute on chronic Qualified Code(s): I50.23 - Acute on chronic systolic ( congestive) heart failure (4) Obstructive sleep apnea Problem details: refusing his mask Status: Chronic Assessment and plan: Noncompliant, refuses CPAP mask. Current Visit: Yes (5) Hypertension Status: Chronic Assessment and plan: Well controlled, borderline hypotensive. Has required vasopressors, currently on hold. Is receiving IV cardizem, PO cardizem, and PO metoprolol. Will continue to monitor. Current Visit: No (6) Alcoholic cirrhosis Status: Acute Assessment and plan: GI is following. Current Visit: Yes (7) Anemia Status: Acute Assessment and plan: GI is following. Upper endoscopy did not reveal culprit lesion. Per GI, the patient will need C-scope with timing based on clinical progress. Current Visit: Yes (8) Obesity Status: Chronic Current Visit: Yes (9) Alcohol abuse Status: Chronic Assessment and plan: Per Dr. Garcia's notes, the patient's would like for him to go to a treatment center when he is medically stable. Current Visit: Yes (10) Failure to thrive Status: Chronic Current Visit: Yes History of Present Illness - Data of Consult Patient: known to practice within the last 3 years (last seen by Dr. Conley in 2013) Consult date: 06/20/16 Requesting Physician: Izaeblla Garcia Primary care physician: Yair Boone - Consult Narrative Reason for consult: refractory tachycardia History of present illness: TECHNICAL SUPPORT DIRECTOR: DR. CONLEY (last seen in 2013) PCP: DR. BOONE Mr. Tracy is a 60 year old male who has not followed with Dr. Conley since 2013. He has a history of anxiety, atrial fibrillation, diabetes, hypertension, psoriasis, tachybradycardia syndrome status post dual-chamber pacemaker placement, obstructive sleep apnea (noncompliant), hyperlipidemia, EtOH abuse. Risk factors are significant for: Diabetes, hyperlipidemia, hypertension, obesity, sedentary lifestyle. He was admitted to the hospital on June 15, 2016 and found to have pancreatitis , liver failure, and hepatorenal syndrome. He has been seen by gastroenterology , sleep medicine, nephrology. We were consulted to see him due to refractory tachycardia. Upon exam, he is a very poor historian and is in bilateral wrist restraints due to being physically aggressive with the staff last night. surveillance monitor shows atrial flutter/tachycardia. He is currently on Cardizem infusion in addition to Cardizem 30 mg p.o. twice daily, metoprolol 125 mg p.o. twice daily. Mr. Tracy does admit to having occasional palpitations. Then, he tells the nursing staff that "he saw the devil in his room last night." His sotalol has been on hold since admission. Creatinine was 4.8 on admission, has now returned to normal. We will recheck EKG and if QT interval is acceptable, will restart his sotalol and try to wean him off of the Cardizem infusion. He was previously on aspirin and eliquis for stroke prevention which are being held due to his profound anemia. H&H 8.6 and 26.9 today. He has received a total of 3 units of PRBCs this admission, last transfusion on 06/19/16. Echocardiogram done June 16, 2016 revealed ejection fraction 60%, grade 1 out of 4 diastolic dysfunction, mild mitral valve sclerosis, trace mitral regurgitation, trace aortic regurgitation, mild to moderate tricuspid regurgitation. CC: Yair Boone MD - Home Medications and Allergies Home Medications: Home Medications Medication Instructions Recorded Confirmed Type Apixaban [Eliquis] 5 mg PO BID #60 tablet 12/18/15 06/15/16 Rx Aspirin Chew Tab 81 mg PO DAILY tablet 12/18/15 06/15/16 Rx Diltiazem Cd Cap [Cardizem CD] 180 mg PO DAILY #30 capsule 12/18/15 06/15/16 Rx Furosemide Tab [Lasix Tab] 40 mg PO BID DIURETIC #60 tablet 12/18/15 06/15/16 Rx Losartan [Cozaar] 25 mg PO DAILY #30 tablet 12/18/15 06/15/16 Rx Magnesium Oxide 800 mg PO BID #60 tablet 12/18/15 06/15/16 Rx Nitroglycerin Sl Tab [Nitrostat] 0.4 mg SL Q5M PRN #30 tablet 12/18/15 06/15/16 Rx Sotalol [Betapace] 80 mg PO BID #60 tablet 12/18/15 06/15/16 Rx Spironolactone [Aldactone] 50 mg PO DAILY #30 tablet 12/18/15 06/15/16 Rx Furosemide [Lasix] 40 mg PO BID 06/15/16 06/15/16 History Levothyroxine Tab [Synthroid Tab] 75 mcg PO DAILY@0700 06/15/16 06/15/16 History Potassium Chloride 20 meq PO BID 06/15/16 06/15/16 History Allergies/Adverse Reactions: Allergies Allergy/AdvReac Type Severity Reaction Status Date / Time lorazepam [From Ativan] AdvReac Severe Anxiety Verified 06/16/16 19:31 Review of systems: - Constitutional: Present: anorexia, fatigue, As per HPI. Absent: chills, daytime sleepiness, excessive sweating, fever(s), frequent falls, headache(s), increased appetite, lethargy, malaise, night sweats, stops breathing during sleep, weakness, weight gain, weight loss, - EENT Eyes: Present: As per HPI. Absent: blurry vision, diplopia, loss of vision Ears: Present: As per HPI. Absent: decreased hearing, ear discharge, ear pain Nose, mouth and throat: Present: As per HPI. Absent: dysphagia, epistaxis, headache(s), hoarseness, lip swelling, nasal congestion, neck mass, neck pain, sinus pressure, sore throat, throat swelling, tongue swelling, vertigo - Cardiovascular: Present: palpitations, as per HPI. Absent: chest pain at rest , chest pain with activity, dyspnea, dyspnea on exertion, edema, claudication, diaphoresis, radiating jaw, neck or arm pain, lightheadedness, orthopnea, PND - Respiratory: Present: as per HPI. Absent: dyspnea, dyspnea on exertion, cough , hemoptysis, wheezing, snoring, pain on inspiration - Gastrointestinal: Present: abdominal pain, bloating, As per HPI. Absent: change in bowel habits, constipation, diarrhea, heartburn, hematemesis, hematochezia, loose stools, melena, nausea, vomiting - Genitourinary: Present: As per HPI. Absent: difficulty urinating, dysuria, flank pain, hematuria, nocturia, urinary frequency, urinary incontinence - Musculoskeletal: Present: muscle weakness, As per HPI. Absent: arthralgias, back pain, joint swelling, limited range of motion, muscle cramps, myalgias - Neurological: Present: As per HPI. Absent: abnormal gait, abnormal speech, behavioral changes, confusion, convulsions, disequilibrium, dizziness, focal weakness, frequent falls, headache(s), memory loss, numbness, paresthesias, radicular pain, syncope, tremor(s) - Psychiatric: Present: As per HPI. Absent: anxiety, confusion, depression, panic attacks - Endocrine: Present: As per HPI. Absent: cold intolerance, fatigue, heat intolerance, polydipsia, polyphagia - Hematologic/Lymphatic: Present: As per HPI. Absent: easy bleeding, easy bruising, lymphadenopathy Medical,Surgical,& Family Hx - Medical History Cardio: History of: Cardiac Dysrhythmia (atrial fib flutter with tachybradycardia syndrome; pacemaker placement), CHF (with preserved ejection fraction), Hypertension, Pacemaker Psychological: History of: Depression Neurology: History of: TIA Endocrine: History of: Diabetes Mellitus (NIDDM) Rheumatology: History of;: Psoriasis Respiratory: History of: Obstructive Sleep Apnea Renal: History of: Renal Problems (chronic renal insufficiency) Gastrointestinal: History of: Liver Problems (cirrhosis) Musculoskeletal: History of: Musculoskeletal Problems (WEAK IN LOWER EXTREMITIES ) Hematology: History of: Anemia (chronic disease and illness), Blood Transfusion Reaction (NO REACTION) - Surgical History Cardiac Surgeries: Sugical HX of: Internal Defibrillator (pacemaker) - Family History Family History: Reports;: Family Diabetes (MOTHER), Family Heart Disease, Family Hypertension (MOTHER), Family Psychiatric Problems (MOTHER) - Social History Smoking Status: Former smoker Frequency of Alcohol Use: Frequently Type of Drug Use: None Marital Status: Lives With:: Spouse Functional capacity: independent ambulation Physical Examination Vital Signs Temp Pulse Resp BP Pulse Ox 98.4 F 99 H 20 87/64 100 06/15/16 15:57 06/15/16 15:57 06/15/16 15:57 06/15/16 15:57 06/15/16 15:57 Other: General appearance: Bilateral wrist restraints in place, uncooperative. Obese. No acute distress. - Head Head exam: Present: normal inspection, normocephalic, atraumatic. Absent: hematoma, laceration - Eye Eye exam: Present: EOMI. Absent: conjunctival injection, nystagmus, periorbital swelling, scleral icterus, laceration to eyelids Pupils: Present: PERRL. Absent: constricted, dilated, fixed, irregular, unequal - ENT ENT exam: Present: normal exam, normal external ear exam - Neck Neck exam: Present: normal inspection. Absent: lymphadenopathy, meningismus, tenderness, thyromegaly - Respiratory Respiratory exam: Present: clear to auscultation bilaterally. Absent: accessory muscle use, chest wall tenderness - Cardiovascular Cardiovascular exam: Present: Irregular rate and rhythm. Absent: carotid bruit , gallop, JVD, rubs, murmur - GI/Abdominal GI/Abdominal exam: Present: normal bowel sounds, distended, ascites. Absent: guarding, hernia, mass, rebound. - Extremities Exam Extremities exam: Present: normal inspection, normal capillary refill. Upper extremity pulses 2+. Lower extremity pulses 2+. Trace BLE edema. Absent: calf tenderness -Back Exam Back exam: Unable to assess due to habitus. Patient is restrained due to becoming physically aggressive with staff. - Neurological Exam Neurological exam: Present: alert, oriented X3, difficult historian, grossly intact - Psychiatric Psychiatric exam: Present: depressed, flat affect - Skin Skin exam: Present: normal color, warm, dry, intact. Absent: cyanosis, diaphoretic, rash, urticaria Result/EKG - Labs CBC & BMP: 06/21/16 04:50 06/21/16 04:50 Lab Results: I have reviewed the past 24 hour labs Labs: Laboratory Results - last 24 hr 06/20/16 06/20/16 06/20/16 11:38 18:00 23:50 WBC RBC Hgb Hct MCV MCH MCHC RDW Plt Count MPV Neut % (Auto) Lymph % (Auto) Chaves % (Auto) Eos % (Auto) Baso % (Auto) Neut # (Auto) Lymph # (Auto) Chaves # (Auto) Eos # (Auto) Baso # (Auto) Total Counted Immature Gran % Nucleated RBC % Immature Gran # Segmented Neutrophils Lymphocytes Monocytes Eosinophils Promyelocytes Nucleated RBCs # Platelet Estimate Macrocytosis Sodium Potassium Chloride Carbon Dioxide Anion Gap BUN Creatinine GFR Calculation BUN/Creatinine Ratio Glucose POC Glucose 85 88 107 H Calculated Osmolality Calcium Total Bilirubin AST ALT Alkaline Phosphatase Ammonia Total Creatine Kinase CK-MB (CK-2) Troponin I Total Protein Albumin Globulin Albumin/Globulin Ratio Lipase 06/21/16 06/21/16 06/21/16 04:50 04:50 04:50 WBC 6.2 RBC 2.57 L Hgb 8.6 L Hct 26.9 L MCV 104.7 H MCH 34 MCHC 32.0 RDW 16.7 Plt Count 153 MPV 10.3 Neut % (Auto) 61.9 Lymph % (Auto) 17.3 L Chaves % (Auto) 16.0 H Eos % (Auto) 2.4 Baso % (Auto) 0.6 Neut # (Auto) 3.8 Lymph # (Auto) 1.1 L Chaves # (Auto) 1.0 H Eos # (Auto) 0.2 Baso # (Auto) 0.0 Total Counted 100 Immature Gran % 1.8 Nucleated RBC % 0.0 Immature Gran # 0.11 Segmented Neutrophils 71 Lymphocytes 15 L Monocytes 12 Eosinophils 1 Promyelocytes 1 Nucleated RBCs # 0.00 Platelet Estimate Adequate Macrocytosis 1+ Sodium 146 H Potassium 3.8 Chloride 114 H Carbon Dioxide 21 Anion Gap 14.8 BUN 11 Creatinine 0.70 GFR Calculation 132 BUN/Creatinine Ratio 15.00 Glucose 85 POC Glucose Calculated Osmolality 287.6 Calcium 7.3 L Total Bilirubin 1.60 H AST 114 H ALT 34 Alkaline Phosphatase 155 H Ammonia 26 Total Creatine Kinase 156 D CK-MB (CK-2) 1.7 Troponin I < 0.015 Total Protein 4.0 L Albumin 1.8 L Globulin 2.2 L Albumin/Globulin Ratio 0.8 L Lipase 467.0 H D 06/21/16 05:01 WBC RBC Hgb Hct MCV MCH MCHC RDW Plt Count MPV Neut % (Auto) Lymph % (Auto) Chaves % (Auto) Eos % (Auto) Baso % (Auto) Neut # (Auto) Lymph # (Auto) Chaves # (Auto) Eos # (Auto) Baso # (Auto) Total Counted Immature Gran % Nucleated RBC % Immature Gran # Segmented Neutrophils Lymphocytes Monocytes Eosinophils Promyelocytes Nucleated RBCs # Platelet Estimate Macrocytosis Sodium Potassium Chloride Carbon Dioxide Anion Gap BUN Creatinine GFR Calculation BUN/Creatinine Ratio Glucose POC Glucose 97 Calculated Osmolality Calcium Total Bilirubin AST ALT Alkaline Phosphatase Ammonia Total Creatine Kinase CK-MB (CK-2) Troponin I Total Protein Albumin Globulin Albumin/Globulin Ratio Lipase - EKG EKG results: interpreted by me (atrial flutter) Quality Measures - VTE Contraindication to Pharmacological VTE Prophylaxis: Active Bleeding <Carlos Butcher - Last Filed: 06/21/16 09:45> History of Present Illness - Consult Narrative History of present illness: Mr. Tracy is a 60 year old male with history of atrial dysrhythmias. I interviewed and examined the patient and reviewed the chart. I discussed this with Risa Hannon LEACH CELL OPERATOR. The patient has a prior history of atrial dysrhythmias and has a dual-chamber pacemaker. The patient was admitted with acute pancreatitis with hepatorenal syndrome is noted. The patient is been off his sotalol. He has having tachycardia that appears to be atrial tachycardia possibly atrial flutter. We need to restart his sotalol and reevaluate his status. He may need cardioversion. I would like to see him in better condition than he is at this time. We will continue to monitor. His echocardiogram 60% ejection fraction with some mild diastolic dysfunction and mildly dilated left atrium and right atrium. Mildly elevated right-sided pressures. No significant valve abnormalities. Our goal be to manage heart rates as well as try to convert to normal rhythm. CC: Yair Boone MD Physical Examination Vital Signs Temp Pulse Resp BP Pulse Ox 98.4 F 99 H 20 87/64 100 06/15/16 15:57 06/15/16 15:57 06/15/16 15:57 06/15/16 15:57 06/15/16 15:57 Other: As already noted above. The patient is tachycardic but very tremulous. Result/EKG - Labs CBC & BMP: 06/21/16 04:50 06/21/16 04:50 Labs: Laboratory Results - last 24 hr 06/20/16 06/20/16 06/20/16 11:38 18:00 23:50 WBC RBC Hgb Hct MCV MCH MCHC RDW Plt Count MPV Neut % (Auto) Lymph % (Auto) Chaves % (Auto) Eos % (Auto) Baso % (Auto) Neut # (Auto) Lymph # (Auto) Chaves # (Auto) Eos # (Auto) Baso # (Auto) Total Counted Immature Gran % Nucleated RBC % Immature Gran # Segmented Neutrophils Lymphocytes Monocytes Eosinophils Promyelocytes Nucleated RBCs # Platelet Estimate Macrocytosis Sodium Potassium Chloride Carbon Dioxide Anion Gap BUN Creatinine GFR Calculation BUN/Creatinine Ratio Glucose POC Glucose 85 88 107 H Calculated Osmolality Calcium Total Bilirubin AST ALT Alkaline Phosphatase Ammonia Total Creatine Kinase CK-MB (CK-2) Troponin I Total Protein Albumin Globulin Albumin/Globulin Ratio Lipase 06/21/16 06/21/16 06/21/16 04:50 04:50 04:50 WBC 6.2 RBC 2.57 L Hgb 8.6 L Hct 26.9 L MCV 104.7 H MCH 34 MCHC 32.0 RDW 16.7 Plt Count 153 MPV 10.3 Neut % (Auto) 61.9 Lymph % (Auto) 17.3 L Chaves % (Auto) 16.0 H Eos % (Auto) 2.4 Baso % (Auto) 0.6 Neut # (Auto) 3.8 Lymph # (Auto) 1.1 L Chaves # (Auto) 1.0 H Eos # (Auto) 0.2 Baso # (Auto) 0.0 Total Counted 100 Immature Gran % 1.8 Nucleated RBC % 0.0 Immature Gran # 0.11 Segmented Neutrophils 71 Lymphocytes 15 L Monocytes 12 Eosinophils 1 Promyelocytes 1 Nucleated RBCs # 0.00 Platelet Estimate Adequate Macrocytosis 1+ Sodium 146 H Potassium 3.8 Chloride 114 H Carbon Dioxide 21 Anion Gap 14.8 BUN 11 Creatinine 0.70 GFR Calculation 132 BUN/Creatinine Ratio 15.00 Glucose 85 POC Glucose Calculated Osmolality 287.6 Calcium 7.3 L Total Bilirubin 1.60 H AST 114 H ALT 34 Alkaline Phosphatase 155 H Ammonia 26 Total Creatine Kinase 156 D CK-MB (CK-2) 1.7 Troponin I < 0.015 Total Protein 4.0 L Albumin 1.8 L Globulin 2.2 L Albumin/Globulin Ratio 0.8 L Lipase 467.0 H D 06/21/16 05:01 WBC RBC Hgb Hct MCV MCH MCHC RDW Plt Count MPV Neut % (Auto) Lymph % (Auto) Chaves % (Auto) Eos % (Auto) Baso % (Auto) Neut # (Auto) Lymph # (Auto) Chaves # (Auto) Eos # (Auto) Baso # (Auto) Total Counted Immature Gran % Nucleated RBC % Immature Gran # Segmented Neutrophils Lymphocytes Monocytes Eosinophils Promyelocytes Nucleated RBCs # Platelet Estimate Macrocytosis Sodium Potassium Chloride Carbon Dioxide Anion Gap BUN Creatinine GFR Calculation BUN/Creatinine Ratio Glucose POC Glucose 97 Calculated Osmolality Calcium Total Bilirubin AST ALT Alkaline Phosphatase Ammonia Total Creatine Kinase CK-MB (CK-2) Troponin I Total Protein Albumin Globulin Albumin/Globulin Ratio Lipase
[2016-06-21] MEDS: METOPROLOL TARTRATE 100 MG TABLET PO SCH (09:11)
[2016-06-21] MEDS: METOPROLOL TARTRATE 25 MG TABLET PO SCH (09:11)
[2016-06-21] MEDS: LACTULOSE 20 GM/30 ML UDCUP PO SCH ×2 (09:37→21:38)
[2016-06-21] MEDS: SOTALOL 80 MG TABLET PO SCH ×2 (09:38→21:37)
[2016-06-21] MEDS: DESITIN 4OZ/NYSTATIN 15 GRAM MIXTURE PASTE TOP SCH ×2 (09:38→21:38)
[2016-06-21] MEDS: chlordiazePOXIDE 25 MG CAPSULE PO SCH ×4 (09:38→21:38)
[2016-06-21] MEDS: MEGESTROL 400 MG/10 ML UDCUP PO SCH ×2 (09:38→21:38)
[2016-06-21] MEDS: NYSTATIN CREAM 15 GM TUBE TOP SCH ×2 (09:38→21:38)
[2016-06-21] MEDS: MIDODRINE 5 MG TABLET PO SCH ×4 (09:38→21:38)
--- NOTE | 2016-06-21 10:30 | Internal Med Progress Note ---
Assessment and Plan (1) Alcohol abuse Status: Chronic Current Visit: Yes (2) Ascites Status: Chronic Current Visit: Yes Qualifiers: Ascites type: due to alcoholic cirrhosis Qualified Code(s): K70.31 - Alcoholic cirrhosis of liver with ascites (3) Elevated liver enzymes Status: Chronic Current Visit: Yes (4) Failure to thrive Status: Chronic Current Visit: Yes Qualifiers: Failure to thrive age range: in adult Qualified Code(s): R62.7 - Adult failure to thrive (5) Hypotension Status: Acute Current Visit: Yes Qualifiers: Hypotension type: orthostatic hypotension Qualified Code(s): I95.1 - Orthostatic hypotension (6) NICM (nonischemic cardiomyopathy) Problem details: improved EF per updated ECHO Status: Chronic Current Visit : Yes (7) Acute pancreatitis Status: Resolved Current Visit: Yes Qualifiers: Pancreatitis type: alcohol induced (8) Obstructive sleep apnea Problem details: refusing his mask Status: Chronic Current Visit: Yes (9) Thrombocytopenia Problem details: platelets improved after discontinuing protonix Status: Resolved Current Visit: Yes Internal Medicine - PN: Subj Interval history: Mr. Tracy is a 60 year old male patient of Dr. Yair Reyes with history of dilated cardiomyopathy with EF 25%, diastolic dysfunction, sinus tachy debra syndrome with pacemaker placement, DM, liver cirrhosis, alcoholism, hypothyroidism, paroxysmal atrial fibrillation, who presented to ER with profound and worsening weakness. He was found to have pancreatitis, liver failure, and possibly hepatorenal syndrome. He is in renal failure. He reported to ER that he has not been eating/drinking over several days, except for drinking alcohol. He admits to alcoholism as reported by ER. Admitted to ICU with severe anemia and receiving blood transfusion. He, also, is found to be hyponatremic. History of ascites and abdominal x-ray ordered for morning. Failure to thrive. He has history of medical noncompliance. ECHO shows much improved left ventricular EF of 60% and improved pulmonary hypertension. Will increase fluid rate to better treat acute pancreatitis. Fluids will help renal function, also. Have started a lower dose of Synthroid, because uncertain whether he has taken the 75 mcg dose. He told ER that he was taking his meds while drinking alcohol every day, but this is doubtful. Today, , he is doing better. Pancreatitis improving. Increasing Synthroid to home med dose of 75 mcg daily. Continuing current treatment. Tuesday, lipase level trending down, and will give him full liquids tomorrow. Doing better. Increasing Metoprolol. Tuesday, Adding Librium, a unit of pRBC, and labs for tomorrow. Will speak to his this weekend. Pancreatitis is resolving and will order soft diet today. Still tachycardia, but hoping Librium will help. He is in the window for DTs. He is refusing CPAP (mask). Tuesday, adding Midodrine for hypotension and Cardizem IV infusion to help bring down heart rate. Refractory. Discussed case with . She wants treatment center for him when he is medically stable. Tuesday, still tachycardia 115 range. Cardiology restarting Sotalol as PO. He is also on Metoprolol and Cardizem. He needs blood transfusion today, and have ordered 2 units pRBC. Increasing Midodrine to help with hypotension. Still on pressor. Adding albumin and changing fluids to 1/2Nsaline; still alternating with banana bag daily. Exam (Progress Note) - Constitutional Vitals: Period Temp Pulse Resp BP Sys/Mcbride Pulse Ox Last 24 Hr 98.2 F-98.6 F 82-123 15-29 89-141/29-98 94-100 Exam: General appearance: no acute distress - Respiratory Respiratory exam: Present: clear to auscultation bilaterally - Cardiovascular Cardiovascular exam: Present: tachycardia - GI/Abdominal GI/Abdominal exam: Present: distended - Extremities Exam Extremities exam: Absent: edema - Neurological Exam Neurological exam: Present: somnolent - Psychiatric Psychiatric exam: Present: depressed, flat affect - Skin Skin exam: Present: warm and dry Vitals reviewed. Results - Labs CBC & BMP: 06/21/16 04:50 06/21/16 04:50 Quality Measures - VTE Contraindication to Pharmacological VTE Prophylaxis: Active Bleeding
[2016-06-21] MEDS ORDERED: SODIUM CHLORIDE 0.9% 250 ML IV PRN (10:33)
--- NOTE | 2016-06-21 12:06 | Gastrointestinal Progress Note ---
Assessment and Plan (1) Anemia Status: Acute Assessment and plan: 06/21-hemoglobin down at 8.6 today. Receiving 2 units of blood. No overt bleeding. Continue to monitor H&H. Plan an addendum to followed by Dr. Ray. 06/18-Hgb stable at 9.2 w/o overt bleeding. PICC line placed today. Pressor support started. EGD findings noted. Continue to monitor HH and transfuse as needed. Plan and addendum to follow by Dr Ray. 06/16-Findings on admission of hgb 7.8, no reports of overt bleeding. No known prior endoscopy. Noted to be on Eliquis prior to admission for A-fib, held at present time. Continue to monitor HH. Plan and addendum to follow by Dr Ray. Current Visit: Yes Gastroenterology - PN: Subj Interval history: CC: Anemia Patient is seen lying in bed awake, alert. He states he feels a little better over the weekend. Hemoglobin is noted to drop from 9.3-8.6 his yesterday in the absence of any overt bleeding. He is to be transfused 2 units of packed cells this morning to make a total of 5 units transfused since admission. He is currently noted to be on IV Cardizem as well. Abdomen soft, nontender. States he does not have very much of an appetite at this time. Denies any abdominal pain, nausea vomiting. Lipase continues to trend down at 467 today. Bilirubin is at 1.6 and transaminases trending down as well. Ammonia 26. Weight is noted to remain stable. ROS: Denies shortness of breath or chest pain Exam (Progress Note) - Constitutional Vitals: Period Temp Pulse Resp BP Sys/Mcbride Pulse Ox Last 24 Hr 98.1 F-98.6 F 82-123 15-29 82-125/29-98 95-100 General appearance: normal weight, no acute distress - Head Head exam: Present: normal inspection, normocephalic - Eye Eye exam: Present: other (Lids and conjunctive on). Absent: scleral icterus - ENT ENT exam: Present: normal exam, normal oropharynx - Neck Neck exam: Present: normal inspection - Respiratory Respiratory exam: Present: clear to auscultation bilaterally. Absent: rales, rhonchi, wheezes - Cardiovascular Cardiovascular exam: Present: regular rate and rhythm. Absent: diastolic murmur , JVD, systolic murmur - GI/Abdominal GI/Abdominal exam: Present: normal bowel sounds, soft. Absent: ascites, distended, mass, organomegaly, tenderness - Extremities Exam Extremities exam: Present: normal inspection, full ROM - Back Exam Back exam: Present: normal inspection - Neurological Exam Neurological exam: Present: alert, oriented X3 - Psychiatric Psychiatric exam: Present: normal affect, normal mood - Skin Skin exam: Present: normal color, warm, dry Results - Labs CBC & BMP: 06/21/16 04:50 06/21/16 04:50 Lab Results: I have reviewed the past 24 hour labs
--- NOTE | 2016-06-21 12:08 | EKG Report ---
Stationary ECG Study [facility] Test Date: 06/21/2016 12:08 PM Pat Name: ISAC AYON Department: Room: 108 Gender: M Experimental Technician: GRAYSON : 1955 Requested by: Risa Hannon Order Number: [id number] Reading MD: BOB CHACON Intervals [place] Rate: 117 P: 73 KS: 158 QRS: 104 QRSD: 81 T: 180 QT: 323 QTc: 393 Interpretive Statements SINUS TACHYCARDIA at 117 BPM RIGHT AXIS DEVIATION LOW QRS VOLTAGE POSSIBLE RIGHT VENTRICULAR CONDUCTION DELAY NST, CONSIDER ANTERIOR ISCHEMIA ABNORMAL QRS-T ANGLE Electronically Signed On 06-23-16 18:35:30 CDT by BOB CHACON [email or web address]
[2016-06-21] MEDS: DILTIAZEM INJ 100 MG in SODIUM CHLORIDE 0.9% 100 ML IV SCH (14:58)
[2016-06-21] MEDS: ALBUMIN 25% 25 GM in PREMIX 1 EACH IV SCH (20:52)
[2016-06-22] MEDS: INSULIN REGULAR 100 UNIT/ML SUBCUT SCH ×4 (00:36→18:07)
[2016-06-22] MEDS: FAMOTIDINE 20 MG/2 ML VIAL IV SCH (00:37)
[2016-06-22] MEDS: ALBUTEROL/IPRATROPIUM 3 ML NEB RESP TX SCH ×4 (01:48→19:28)
[2016-06-22] MEDS: ALBUMIN 25% 25 GM in PREMIX 1 EACH IV SCH ×3 (04:54→21:21)
[2016-06-22 05:05] LABS: Basophils % 0.5 % (0.0-0.8); Eosinophils # 0.2 10*3/uL (0.0-0.87); Eosinophils % 3.1 % (0.00-10.9); Hemoglobin 9.7 GM/DL (14.0-18.0); Immature Granulocytes % 2.1 %; Immature Granulocytes Absolute 0.12 #; Lymphocytes % 16.8 % (21.2-54.2); Mean Corpuscular HGB Conc 31.3 GM/DL (32-36); Mean Corpuscular Hemoglobin 32 PG (27-34); Mean Corpuscular Volume 101.6 FL (87-102); Mean Platelet Volume 10.4 FL (9.6-12.0); Monocytes % 17.7 % (1.7-12.7); Neutrophils # 3.5 10*3/uL (1.4-7.4); Neutrophils % 59.8 % (38.7-73.9); Platelet Count 158 T/CUMM (130-400); Red Blood Count 3.05 MC/CUMM (3.8-5.5); Red Cell Distribution Width 18.8 % (9.3-17.3); White Blood Count 5.8 T/CUMM (4-12)
[2016-06-22 05:29] LABS: Bilirubin,Total 2.1 MG/DL (0.2-1.0); Osmolality,Calculated 279.3 MOS/KG (273-304); Potassium 3.4 MMOL/L (3.5-5.1); Total Protein 4.1 G/DL (6.4-8.3)
[2016-06-22 05:31] LABS: Band Neutrophils 1 % (0-10); Eosinophils 2 % (0-10); Lymphocytes 22 % (20-55); Segmented Neutrophils 63 % (50-85); Total Cells Counted 100
[2016-06-22 05:32] LABS: Hypochromasia 1+; Macrocytosis 1+; Platelet Estimate Adequate
[2016-06-22] MEDS: LEVOTHYROXINE 75 MCG TABLET PO SCH (06:47)
--- NOTE | 2016-06-22 07:29 | Family Practice Progress Note ---
Family Practice - PN: Subj Interval history: Patient is a little more coherent this morning according to the nursing staff and he was certainly able to answer simple questions. He does not understand why he is in restraints and I pointed out to him that he became violent with the nursing staff. EKG yesterday showed prominent baseline artifact and no other interpretation is possible. His pancreatitis appears to have resolved. I told patient is necessary for him to go to rehab when he is physically able. He can probably go to the floor later today. Exam (Progress Note) - Constitutional Vitals: Period Temp Pulse Resp BP Sys/Mcbride Pulse Ox Last 24 Hr 97.6 F-98.9 F 84-125 16-31 81-122/52-98 90-100 Exam: Objectively well-developed white male who is very disheveled appearance. His speech is somewhat rambling but when I get him to concentrate is able to answer simple questions and follow simple commands. He denies any discomfort. Cardiovascular: Heart rates are regular with no murmurs or gallops. Respiratory: Lungs clear to auscultation bilaterally. Abdomen: Abdomen soft and nontender to palpation. Neuro: Patient is coherent this morning he has full strength in upper extremities. Results - Labs CBC & BMP: 06/22/16 04:00 06/22/16 04:00 Lab Results: I have reviewed the past 24 hour labs Assessment and Plan (1) Atrial flutter Status: Acute Assessment and plan: 06/22/2016: Heart rate still bit elevated and he appears to be in persistent flutter Current Visit: No (2) Anemia Status: Acute Assessment and plan: 06/22/2016: Hematocrit remained stable. Patient has heme positive stool. Current Visit: Yes (3) Obstructive sleep apnea Problem details: refusing his mask Status: Chronic Assessment and plan: 06/22/2016: Patient apparently refusing to wear his CPAP mask. Current Visit: Yes (4) Acute pancreatitis Status: Resolved Assessment and plan: 06/22/2016: Patient's pancreatitis has resolved. Current Visit: Yes Qualifiers: Pancreatitis type: alcohol induced Quality Measures - VTE Contraindication to Pharmacological VTE Prophylaxis: Active Bleeding
[2016-06-22] MEDS: SODIUM CHLORIDE 0.45% 1,000 ML IV SCH ×3 (07:31→16:39)
--- NOTE | 2016-06-22 07:32 | EKG Report ---
Stationary ECG Study [facility] Test Date: 06/22/2016 7:31:11 AM Pat Name: ISAC AYON Department: Room: 108 Gender: M Credit Portfolio Manager: GRAYSON : 1955 Requested by: Risa Hannon Order Number: [id number] Reading MD: LINWOOD DREW Intervals [place] Rate: 75 P: 999 [place]: 0 QRS: 124 QRSD: 92 T: 131 QT: 391 QTc: 420 Interpretive Statements ATRIAL FIBRILLATION INCOMPLETE RIGHT BUNDLE BRANCH BLOCK POSSIBLE RIGHT VENTRICULAR HYPERTROPHY BASELINE ARTIFACT IN MULTIPLE LEADS DIFFUSE LOW VOLTAGE QRS COMPLEXES Electronically Signed On 06-28-16 07:31:10 CDT by LINWOOD DREW [email or web address]
--- NOTE | 2016-06-22 08:32 | Physician Query Form ---
CLICK EDIT DOCUMENT TO SELECT QUERY ANSWER --> OK --> SIGN Sarika Hernández RN Clinical Refrigerator Assembler W) [phone] (f) [phone] [email or web address]: Make your selection(s) from the choices in EACH section by typing an "x" and enter comments in the comment section. Please use your independent medical judgment in providing your response. This request does not imply that any particular answer is desired or expected. CLINICAL INDICATORS: (Providers should not edit this section) The below diagnosis was documented in the record, but is not consistently noted in subsequent documentation. Diagnosis: Hepatorenal syndrome Based on documentation of "He was found to have pancreatitis, liver failure, and possibly hepatorenal syndrome. He is in renal failure". Njrswm=[id number], UDK=402 , creatinine=4.80, GFR=16, ammonia level=39. Please clarify the following: (x ) The above diagnosis was monitored, evaluated, and/or treated and is a confirmed diagnosis ( ) The above diagnosis was ruled out ( ) The above diagnosis is still a likely, suspected, probable diagnosis ( ) Other, please specify: ( ) Clinically unable to determine COMMENTS: Use of terms such as suspected, likely, or probable (associated with a specific diagnosis that is being evaluated, monitored, or treated as if it exists) are acceptable and can be restated in the discharge summary if not ruled out. MTDD
[2016-06-22] MEDS: MEGESTROL 400 MG/10 ML UDCUP PO SCH ×2 (08:42→21:43)
[2016-06-22] MEDS: MIDODRINE 5 MG TABLET PO SCH ×3 (08:42→21:47)
[2016-06-22] MEDS: SOTALOL 80 MG TABLET PO SCH ×2 (08:42→21:47)
[2016-06-22] MEDS: LACTULOSE 20 GM/30 ML UDCUP PO SCH ×2 (08:43→21:46)
[2016-06-22] MEDS: chlordiazePOXIDE 25 MG CAPSULE PO SCH ×3 (08:43→21:48)
[2016-06-22] MEDS: NYSTATIN CREAM 15 GM TUBE TOP SCH ×2 (08:43→21:50)
[2016-06-22] MEDS: DESITIN 4OZ/NYSTATIN 15 GRAM MIXTURE PASTE TOP SCH ×2 (08:43→21:48)
--- NOTE | 2016-06-22 09:40 | Cardiology Progress Note ---
<Risa Hannon E - Last Filed: 06/22/16 09:35> Assessment and Plan - Time spent with patient Time spent with patient: Less than 30 minutes (1) Atrial flutter Status: Acute Assessment and plan: Currently remains in atrial flutter/atrial tachycardia. Has occasional controlled rates in the 70s-80s. Remains on IV Cardizem at 15 mg an hour, p.o. Cardizem twice daily. Sotalol was restarted yesterday. QT interval is acceptable. May require cardioversion at some point. Current Visit: No (2) Paroxysmal atrial fibrillation Status: Chronic Assessment and plan: Currently in atrial flutter. His previously on aspirin and Eliquis for stroke prevention. These are being held due to his profound anemia. He has required transfusion of 3 units PRBCs this admission, last transfusion on 06/19/2016. Current Visit: Yes (3) CHF (congestive heart failure) Status: Acute Assessment and plan: Echocardiogram revealed EF 60%, grade I/IV diastolic dysfunction. Clinically, he looks stable from a CHF standpoint. Current Visit: No Qualifiers: Congestive heart failure type: systolic Congestive heart failure chronicity : acute on chronic Qualified Code(s): I50.23 - Acute on chronic systolic ( congestive) heart failure (4) Obstructive sleep apnea Problem details: refusing his mask Status: Chronic Assessment and plan: Noncompliant, refuses CPAP mask. Current Visit: Yes (5) Hypertension Status: Chronic Assessment and plan: Well controlled, borderline hypotensive. Has required vasopressors, currently on hold. Is receiving IV cardizem, PO cardizem, and PO sotalol. Will continue to monitor. Current Visit: No (6) Alcoholic cirrhosis Status: Acute Assessment and plan: GI is following. Current Visit: Yes (7) Anemia Status: Acute Assessment and plan: GI is following. Upper endoscopy did not reveal culprit lesion. Per GI, the patient will need C-scope with timing based on clinical progress. Current Visit: Yes (8) Obesity Status: Chronic Current Visit: Yes (9) Alcohol abuse Status: Chronic Assessment and plan: Per Dr. Garcia's notes, the patient's would like for him to go to a treatment center when he is medically stable. Current Visit: Yes (10) Failure to thrive Status: Chronic Current Visit: Yes Qualifiers: Failure to thrive age range: in adult Qualified Code(s): R62.7 - Adult failure to thrive Cardiology - PN: Subj Interval history: QUALITY IMPROVEMENT MANAGER: DR. CONLEY PCP: DR. BOONE Mr. Tracy remains in what appears to be atrial flutter today. His sotalol was restarted yesterday. QT interval is acceptable but patient remains on IV Cardizem at 15 mg an hour and p.o. Cardizem. Mr. Rhoades's and has moments where his rate is controlled around 70-80 bpm but when he becomes agitated, it may jump up to greater than 120-130. Patient is alert and seems to be oriented at times. He tells me that he has required cardioversion on numerous occasions to shock his heart back into a regular rhythm. However, he also tells me that the nurses are playing a joke on him and will not take these "bands" (wrist restraints) off of his wrists. He reports that he has been able to feel palpitations in the past but has not felt any recently. Exam (Progress Note) - Constitutional Vitals: Period Temp Pulse Resp BP Sys/Mcbride Pulse Ox Last 24 Hr 97.6 F-98.9 F 78-125 16-31 81-122/52-98 90-100 Exam: General: Present: Appears Well, No Apparent Distress. Bilateral wrist restraints in place. Diabetes. HEENT: Present: PERRL, Normocephaly, atraumatic. Mucus Membranes Moist. No jaundice noted. Conjunctiva moist and clear, sclerae anicteric Neck: Present: Supple Neck, Midline Trachea, No Masses, no bruit, no tenderness Cardiac: Present: Irregular Rate and Rhythm, No Murmur Lungs: Present: Clear to auscultation bilaterally, no wheeze, rhonchi, rales. No accessory muscle use or chest wall tenderness. Neuro: Present: Awake, alert, and oriented x3. Moves all extremities well without hemiparesis or paralysis. Grossly Intact. Absent: Resting Tremor, Essential Tremor Abdomen: Present: Soft, Active Bowel Sounds, No Masses, Non-Tender, nondistended. No abdominal bruit or thrill noted. Skin: Present: Clear. Absent: Rash, No skin breakdown. Back: Unable to assess due to habitus. Patient is restrained due to aggressive behavior towards the staff. Musculoskeletal: Present: No Fluid Collection, No Pain, Normal Range of Motion Extremities: Present: Normal Gait, No Clubbing, No Cyanosis, Upper Extr. Pulses 2+, Lower Extr. Pulses 2+, trace bilateral lower extremity edema. Capillary refill less than 3 seconds. Result/EKG - Labs CBC & BMP: 06/22/16 04:00 06/22/16 04:00 Lab Results: I have reviewed the past 24 hour labs Labs: Laboratory Results - last 24 hr 06/21/16 06/21/16 06/21/16 10:33 11:48 17:31 WBC RBC Hgb Hct MCV MCH MCHC RDW Plt Count MPV Neut % (Auto) Lymph % (Auto) Ness % (Auto) Eos % (Auto) Baso % (Auto) Neut # (Auto) Lymph # (Auto) Ness # (Auto) Eos # (Auto) Baso # (Auto) Total Counted Immature Gran % Nucleated RBC % Immature Gran # Segmented Neutrophils Band Neutrophils Lymphocytes Monocytes Eosinophils Nucleated RBCs # Platelet Estimate Hypochromasia Macrocytosis Sodium Potassium Chloride Carbon Dioxide Anion Gap BUN Creatinine GFR Calculation BUN/Creatinine Ratio Glucose POC Glucose 100 136 H Calculated Osmolality Calcium Total Bilirubin AST ALT Alkaline Phosphatase Ammonia Total Protein Albumin Globulin Albumin/Globulin Ratio Blood Type Cancelled Antibody Screen Cancelled Crossmatch See Detail Blood Bank Comment Cancelled 06/21/16 06/22/16 06/22/16 23:20 04:00 04:00 WBC 5.8 RBC 3.05 L Hgb 9.7 L Hct 31.0 L MCV 101.6 MCH 32 MCHC 31.3 L RDW 18.8 H Plt Count 158 MPV 10.4 Neut % (Auto) 59.8 Lymph % (Auto) 16.8 L Ness % (Auto) 17.7 H Eos % (Auto) 3.1 Baso % (Auto) 0.5 Neut # (Auto) 3.5 Lymph # (Auto) 1.0 L Ness # (Auto) 1.0 H Eos # (Auto) 0.2 Baso # (Auto) 0.0 Total Counted 100 Immature Gran % 2.1 Nucleated RBC % 0.0 Immature Gran # 0.12 Segmented Neutrophils 63 Band Neutrophils 1 Lymphocytes 22 Monocytes 12 Eosinophils 2 Nucleated RBCs # 0.00 Platelet Estimate Adequate Hypochromasia 1+ Macrocytosis 1+ Sodium 141 Potassium 3.4 L Chloride 110 H Carbon Dioxide 21 Anion Gap 13.4 BUN 10 Creatinine 0.70 GFR Calculation 132 BUN/Creatinine Ratio 14.00 Glucose 103 POC Glucose 106 Calculated Osmolality 279.3 Calcium 7.0 L Total Bilirubin 2.10 H AST 91 H ALT 31 Alkaline Phosphatase 143 H Ammonia 23 Total Protein 4.1 L Albumin 2.0 L Globulin 2.1 L Albumin/Globulin Ratio 0.9 L Blood Type Antibody Screen Crossmatch Blood Bank Comment 06/22/16 05:31 WBC RBC Hgb Hct MCV MCH MCHC RDW Plt Count MPV Neut % (Auto) Lymph % (Auto) Ness % (Auto) Eos % (Auto) Baso % (Auto) Neut # (Auto) Lymph # (Auto) Ness # (Auto) Eos # (Auto) Baso # (Auto) Total Counted Immature Gran % Nucleated RBC % Immature Gran # Segmented Neutrophils Band Neutrophils Lymphocytes Monocytes Eosinophils Nucleated RBCs # Platelet Estimate Hypochromasia Macrocytosis Sodium Potassium Chloride Carbon Dioxide Anion Gap BUN Creatinine GFR Calculation BUN/Creatinine Ratio Glucose POC Glucose 117 H Calculated Osmolality Calcium Total Bilirubin AST ALT Alkaline Phosphatase Ammonia Total Protein Albumin Globulin Albumin/Globulin Ratio Blood Type Antibody Screen Crossmatch Blood Bank Comment - EKG EKG results: interpreted by me (Atrial tachycardia/atrial flutter) Quality Measures - VTE Contraindication to Pharmacological VTE Prophylaxis: Active Bleeding <Carlos Butcher - Last Filed: 06/22/16 09:58> Cardiology - PN: Subj Interval history: Patient personally interviewed and examined and chart reviewed. Case discussed with Risa Hannon NP and I agree with the findings. At this time the patient's heart rates are better manage her present regimen. He is still in atrial fib flutter. The patient's DTs clinically appeared to be improving. From a cardiac standpoint he is stable. I think he needs to stabilize more and at some point we need to consider possible electrocardioversion if he has not returned to sinus rhythm and sotalol. I would like to place the patient on and her coagulation and we may continue his low-dose Lovenox at this time but still concerned about his low hematocrit. He has had some GI bleed according to the chart. He had one heme positive stool. We will continue to monitor the patient at this time. The IV diltiazem and hopefully when he can take by mouth well we will switch him to oral medication. Exam (Progress Note) - Constitutional Vitals: Period Temp Pulse Resp BP Sys/Mcbride Pulse Ox Last 24 Hr 97.6 F-98.9 F 78-125 16-31 81-122/52-98 90-100 Result/EKG - Labs CBC & BMP: 06/22/16 04:00 06/22/16 04:00 Labs: Laboratory Results - last 24 hr 06/21/16 06/21/16 06/21/16 10:33 11:48 17:31 WBC RBC Hgb Hct MCV MCH MCHC RDW Plt Count MPV Neut % (Auto) Lymph % (Auto) Ness % (Auto) Eos % (Auto) Baso % (Auto) Neut # (Auto) Lymph # (Auto) Ness # (Auto) Eos # (Auto) Baso # (Auto) Total Counted Immature Gran % Nucleated RBC % Immature Gran # Segmented Neutrophils Band Neutrophils Lymphocytes Monocytes Eosinophils Nucleated RBCs # Platelet Estimate Hypochromasia Macrocytosis Sodium Potassium Chloride Carbon Dioxide Anion Gap BUN Creatinine GFR Calculation BUN/Creatinine Ratio Glucose POC Glucose 100 136 H Calculated Osmolality Calcium Total Bilirubin AST ALT Alkaline Phosphatase Ammonia Total Protein Albumin Globulin Albumin/Globulin Ratio Blood Type Cancelled Antibody Screen Cancelled Crossmatch See Detail Blood Bank Comment Cancelled 06/21/16 06/22/16 06/22/16 23:20 04:00 04:00 WBC 5.8 RBC 3.05 L Hgb 9.7 L Hct 31.0 L MCV 101.6 MCH 32 MCHC 31.3 L RDW 18.8 H Plt Count 158 MPV 10.4 Neut % (Auto) 59.8 Lymph % (Auto) 16.8 L Ness % (Auto) 17.7 H Eos % (Auto) 3.1 Baso % (Auto) 0.5 Neut # (Auto) 3.5 Lymph # (Auto) 1.0 L Ness # (Auto) 1.0 H Eos # (Auto) 0.2 Baso # (Auto) 0.0 Total Counted 100 Immature Gran % 2.1 Nucleated RBC % 0.0 Immature Gran # 0.12 Segmented Neutrophils 63 Band Neutrophils 1 Lymphocytes 22 Monocytes 12 Eosinophils 2 Nucleated RBCs # 0.00 Platelet Estimate Adequate Hypochromasia 1+ Macrocytosis 1+ Sodium 141 Potassium 3.4 L Chloride 110 H Carbon Dioxide 21 Anion Gap 13.4 BUN 10 Creatinine 0.70 GFR Calculation 132 BUN/Creatinine Ratio 14.00 Glucose 103 POC Glucose 106 Calculated Osmolality 279.3 Calcium 7.0 L Total Bilirubin 2.10 H AST 91 H ALT 31 Alkaline Phosphatase 143 H Ammonia 23 Total Protein 4.1 L Albumin 2.0 L Globulin 2.1 L Albumin/Globulin Ratio 0.9 L Blood Type Antibody Screen Crossmatch Blood Bank Comment 06/22/16 05:31 WBC RBC Hgb Hct MCV MCH MCHC RDW Plt Count MPV Neut % (Auto) Lymph % (Auto) Ness % (Auto) Eos % (Auto) Baso % (Auto) Neut # (Auto) Lymph # (Auto) Ness # (Auto) Eos # (Auto) Baso # (Auto) Total Counted Immature Gran % Nucleated RBC % Immature Gran # Segmented Neutrophils Band Neutrophils Lymphocytes Monocytes Eosinophils Nucleated RBCs # Platelet Estimate Hypochromasia Macrocytosis Sodium Potassium Chloride Carbon Dioxide Anion Gap BUN Creatinine GFR Calculation BUN/Creatinine Ratio Glucose POC Glucose 117 H Calculated Osmolality Calcium Total Bilirubin AST ALT Alkaline Phosphatase Ammonia Total Protein Albumin Globulin Albumin/Globulin Ratio Blood Type Antibody Screen Crossmatch Blood Bank Comment
--- NOTE | 2016-06-22 12:51 | Gastrointestinal Progress Note ---
Assessment and Plan (1) Anemia Status: Acute Assessment and plan: 06/22-Hgb 9.7, no overt bleeding. No pressor support. Continue to monitor for bleeding and HH. Plan and addendum to follow by Dr Ray 06/21-hemoglobin down at 8.6 today. Receiving 2 units of blood. No overt bleeding. Continue to monitor H&H. Plan an addendum to followed by Dr. Ray. 06/18-Hgb stable at 9.2 w/o overt bleeding. PICC line placed today. Pressor support started. EGD findings noted. Continue to monitor HH and transfuse as needed. Plan and addendum to follow by Dr Ray. 06/16-Findings on admission of hgb 7.8, no reports of overt bleeding. No known prior endoscopy. Noted to be on Eliquis prior to admission for A-fib, held at present time. Continue to monitor HH. Plan and addendum to follow by Dr Ray. Current Visit: Yes Gastroenterology - PN: Subj Interval history: CC: Anemia Pt is seen, more somnolent today. He answers questions however falls back asleep during visit. He denies any abdominal pain. No overt bleeding is reported. Hemoglobin is stable at 9.7. He is noted to be in atrial flutter this morning with a rate in the 70-80s. Abdomen is soft, nontender. No pressor support required any further at this point. ROS: Denies SOB or chest pain . Exam (Progress Note) - Constitutional Vitals: Period Temp Pulse Resp BP Sys/Mcbride Pulse Ox Last 24 Hr 98 F-98.9 F 67-125 16-31 81-122/52-77 90-100 - Other Additional findings: General appearance: normal weight, no acute distress - Head Head exam: Present: normal inspection, normocephalic - Eye Eye exam: Present: other (Lids and conjunctive on). Absent: scleral icterus - ENT ENT exam: Present: normal exam, normal oropharynx - Neck Neck exam: Present: normal inspection - Respiratory Respiratory exam: Present: clear to auscultation bilaterally. Absent: rales, rhonchi, wheezes - Cardiovascular Cardiovascular exam: Present: regular rate and rhythm. Absent: diastolic murmur , JVD, systolic murmur - GI/Abdominal GI/Abdominal exam: Present: normal bowel sounds, soft. Absent: ascites, distended, mass, organomegaly, tenderness - Extremities Exam Extremities exam: Present: normal inspection, full ROM - Back Exam Back exam: Present: normal inspection - Neurological Exam Neurological exam: Present: alert, oriented X3 - Psychiatric Psychiatric exam: Present: normal affect, normal mood - Skin Skin exam: Present: normal color, warm, dry Results - Labs CBC & BMP: 06/22/16 04:00 06/22/16 04:00 Lab Results: I have reviewed the past 24 hour labs
[2016-06-22] MEDS: KETOCONAZOLE 2% SHAMPOO 120 ML BOTTLE TOP SCH (21:51)
[2016-06-23] MEDS: INSULIN REGULAR 100 UNIT/ML SUBCUT SCH ×4 (00:26→18:10)
[2016-06-23] MEDS: ALBUTEROL/IPRATROPIUM 3 ML NEB RESP TX SCH ×4 (01:24→19:40)
[2016-06-23] MEDS: FAMOTIDINE 20 MG/2 ML VIAL IV SCH (01:24)
[2016-06-23] MEDS: SODIUM CHLORIDE 0.45% 1,000 ML IV SCH (03:05)
[2016-06-23 04:53] LABS: Basophils % 0.4 % (0.0-0.8); Eosinophils # 0.2 10*3/uL (0.0-0.87); Eosinophils % 2.6 % (0.00-10.9); Hematocrit 34.5 VOL% (42.0-52.0); Hemoglobin 11.2 GM/DL (14.0-18.0); Immature Granulocytes % 1.5 %; Immature Granulocytes Absolute 0.11 #; Lymphocytes # 1.1 10*3/uL (1.4-4.0); Lymphocytes % 14.9 % (21.2-54.2); Mean Corpuscular HGB Conc 32.5 GM/DL (32-36); Mean Corpuscular Hemoglobin 32 PG (27-34); Mean Corpuscular Volume 99.4 FL (87-102); Mean Platelet Volume 10.2 FL (9.6-12.0); Monocytes % 14.4 % (1.7-12.7); Neutrophils # 4.8 10*3/uL (1.4-7.4); Neutrophils % 66.2 % (38.7-73.9); Platelet Count 190 T/CUMM (130-400); Red Blood Count 3.47 MC/CUMM (3.8-5.5); Red Cell Distribution Width 18.3 % (9.3-17.3); White Blood Count 7.2 T/CUMM (4-12)
[2016-06-23 05:22] LABS: Hypochromasia 1+; Lymphocytes 14 % (20-55); Platelet Estimate Normal; Segmented Neutrophils 71 % (50-85); Total Cells Counted 100
[2016-06-23 05:23] LABS: Macrocytosis Slight
[2016-06-23] MEDS: ALBUMIN 25% 25 GM in PREMIX 1 EACH IV SCH ×3 (05:33→20:01)
[2016-06-23 06:09] LABS: Bilirubin,Total 2.2 MG/DL (0.2-1.0); Calcium 7.9 MG/DL (8.5-10.1); Osmolality,Calculated 277.4 MOS/KG (273-304); Potassium 3.5 MMOL/L (3.5-5.1); Total Protein 5.3 G/DL (6.4-8.3)
[2016-06-23] MEDS ORDERED: FUROSEMIDE 40 MG/4 ML VIAL IV ONE (06:40)
[2016-06-23] MEDS ORDERED: FUROSEMIDE 40 MG/4 ML VIAL ONE (06:42)
[2016-06-23 07:17] LABS: Allen Test Positive
[2016-06-23 07:19] LABS: ABG Base Excess -9.5 MMOL/L (-2.5-2.5); ABG HCO3 16.9 MMOL/L (20-26); ABG Oxygen Saturation 98.7 % (95-100); ABG PCO2 47.8 MM HG (35-48); ABG TCO2 17.2 MMOL/L (23-27)
[2016-06-23 07:20] LABS: ABG PH 7.199 (7.35-7.45)
--- NOTE | 2016-06-23 07:21 | XRay Report ---
XR chest 1V portable Indication: Shortness of breath Comparison: 16 June 2016 Findings: The heart and mediastinum are stable in size and configuration. Pacemaker device is unchanged in position. The pulmonary vascularity is increased with bilateral increased interstitial lung density. No other lung infiltrates, effusions, pneumothorax or other abnormality is demonstrated. Impression: Findings suggest cardiac decompensation. PROCEDURE INTERPRETED AT [facility] [place] DEPARTMENT OF RADIOLOGY Final Report Signed by: Dr. Milind Maharaj
--- NOTE | 2016-06-23 07:34 | Family Practice Progress Note ---
Family Practice - PN: Subj Interval history: Patiently developed nausea and vomiting last night became very dyspneic this morning. Chest x-ray this morning reveals bilateral interstitial fullness which certainly could be due to aspiration. Patient is incoherent this morning. Patient is unable to provide any history whatsoever. He is dyspneic at rest and receiving facemask O2. ABG revealed pH 7.19 with slightly elevated CO2 of 47. Exam (Progress Note) - Constitutional Vitals: Period Temp Pulse Resp BP Sys/Mcbride Pulse Ox Last 24 Hr 97.5 F-98.4 F 63-118 17-30 84-160/39-93 90-100 Exam: Objectively well-developed white male who is incoherent. Cardiovascular: Heart rates irregular with no murmurs or gallops. Respiratory: Lungs clear to auscultation bilaterally. Abdomen: Abdomen soft and nontender to palpation. Neuro: Patient is unable to answer any simple questions. He is moving all extremities. Results - Labs CBC & BMP: 06/23/16 04:35 06/23/16 04:35 Lab Results: I have reviewed the past 24 hour labs - Diagnostic Findings Procedure: Chest x-ray: report reviewed by me (Evidence of possible aspiration.) Assessment and Plan (1) Atrial flutter Status: Acute Assessment and plan: 06/22/2016: Heart rate still bit elevated and he appears to be in persistent flutter 06/23/2016: Persistent atrial flutter. Current Visit: No (2) Anemia Status: Acute Assessment and plan: 06/22/2016: Hematocrit remained stable. Patient has heme positive stool. Current Visit: Yes (3) Obstructive sleep apnea Problem details: refusing his mask Status: Chronic Assessment and plan: 06/22/2016: Patient apparently refusing to wear his CPAP mask. Current Visit: Yes (4) Acute pancreatitis Status: Resolved Assessment and plan: 06/22/2016: Patient's pancreatitis has resolved. Current Visit: Yes Qualifiers: Pancreatitis type: alcohol induced (5) Aspiration pneumonitis Status: Acute Assessment and plan: 06/23/2016: Have ordered 40 of Lasix. Blood cultures have been ordered. Will ask pulmonary to see as well. Current Visit: Yes Quality Measures - VTE Contraindication to Pharmacological VTE Prophylaxis: Active Bleeding
[2016-06-23 07:48] LABS: Troponin I Only < 0.015 NG/ML (0.00-0.045)
--- NOTE | 2016-06-23 07:56 | EKG Report ---
Stationary ECG Study [facility] Test Date: 06/23/2016 7:03:27 AM Pat Name: ISAC AYON Department: Room: 108 Gender: M Early Interventionist: GRAYSON : 1955 Requested by: Daniel Noble Order Number: [id number] Reading MD: LINWOOD DREW Intervals [place] Rate: 114 P: 999 MT: 0 QRS: 98 QRSD: 98 T: 120 QT: 270 QTc: 338 Interpretive Statements ATRIAL FLUTTER/TACHYCARDIA WITH RAPID VENTRICULAR RESPONSE BORDERLINE RIGHT AXIS DEVIATION LOW QRS VOLTAGE INCOMPLETE RIGHT BUNDLE BRANCH BLOCK MODERATE ST DEPRESSION Electronically Signed On 06-28-16 10:47:36 CDT by LINWOOD DREW [email or web address]
--- NOTE | 2016-06-23 08:09 | Pulmonology Consult Note ---
Assessment and Plan (1) NICM (nonischemic cardiomyopathy) Problem details: improved EF per updated ECHO Status: Chronic Assessment and plan: The patient does have cardiomegaly and certainly looks like he may have some congestive heart failure Current Visit: Yes (2) Paroxysmal atrial fibrillation Status: Chronic Assessment and plan: The patient continues to have atrial arrhythmias. He does have a pacemaker. Current Visit: Yes (3) Obstructive sleep apnea Problem details: refusing his mask Status: Chronic Assessment and plan: Patient is combative at times and will not use his CPAP Current Visit: Yes (4) Alcoholic cirrhosis Status: Acute Assessment and plan: Patient has a bilirubin of 2.2 and a slightly elevated ammonia level Current Visit: Yes (5) Aspiration pneumonitis Status: Acute Assessment and plan: Patient does have some left lung infiltrate. He will be covered with antibiotics. Current Visit: Yes History of Present Illness Chief complaint: Shortness of breath History of present illness: Mr. Tracy is a 60 year old white white male that came in over a week ago because of anemia and GI bleeding and alcohol abuse. He is overweight with obstructive sleep apnea and has a history of hypertension and diabetes. He has had a pacemaker in the past. He apparently was a former smoker. He likely has a history of cirrhosis. He has required sedatives because of alcohol withdrawal. He is having some respiratory distress and may have aspirated. The patient is requiring increased oxygen and is quite confused. He really cannot tell me much history. Home Medications Medication Instructions Recorded Confirmed Type Apixaban [Eliquis] 5 mg PO BID #60 tablet 12/18/15 06/15/16 Rx Aspirin Chew Tab 81 mg PO DAILY tablet 12/18/15 06/15/16 Rx Diltiazem Cd Cap [Cardizem CD] 180 mg PO DAILY #30 capsule 12/18/15 06/15/16 Rx Furosemide Tab [Lasix Tab] 40 mg PO BID DIURETIC #60 tablet 12/18/15 06/15/16 Rx Losartan [Cozaar] 25 mg PO DAILY #30 tablet 12/18/15 06/15/16 Rx Magnesium Oxide 800 mg PO BID #60 tablet 12/18/15 06/15/16 Rx Nitroglycerin Sl Tab [Nitrostat] 0.4 mg SL Q5M PRN #30 tablet 12/18/15 06/15/16 Rx Sotalol [Betapace] 80 mg PO BID #60 tablet 12/18/15 06/15/16 Rx Spironolactone [Aldactone] 50 mg PO DAILY #30 tablet 12/18/15 06/15/16 Rx Furosemide [Lasix] 40 mg PO BID 06/15/16 06/15/16 History Levothyroxine Tab [Synthroid Tab] 75 mcg PO DAILY@0700 06/15/16 06/15/16 History Potassium Chloride 20 meq PO BID 06/15/16 06/15/16 History Allergies Allergy/AdvReac Type Severity Reaction Status Date / Time lorazepam [From Ativan] AdvReac Severe Anxiety Verified 06/16/16 19:31 ROS unobtainable: due to mental status (He is unable to give any history at present) Exam (Pulmonay) H&P - Constitutional Vitals: Period Temp Pulse Resp BP Sys/Mcbride Pulse Ox Last 24 Hr 97.5 F-98 F 63-118 17-31 84-160/39-93 90-100 General appearance: mild distress (He is reasonably comfortable on a facemask O2 ), over weight - Head Head exam: Present: normal inspection, normocephalic - Eye Eye exam: Present: EOMI. Absent: scleral icterus Pupils: Present: KARLEE - ENT ENT exam: Present: other (Patient has a very narrow hypopharynx) - Neck Neck exam: Present: other (Patient does have a large neck). Absent: lymphadenopathy, thyromegaly - Respiratory Respiratory exam: Present: decreased breath sounds, rhonchi, other (Patient has coarse breath sounds in the bases) - Cardiovascular Cardiovascular exam: Present: irregular rhythm, tachycardia. Absent: gallop, systolic murmur - GI/Abdominal GI/Abdominal exam: Present: hypoactive bowel sounds, soft, other (Abdomen is large). Absent: organomegaly, tenderness - Extremities Exam Extremities exam: Absent: calf tenderness, edema - Neurological Exam Neurological exam: Present: altered (Patient is quite confused) - Psychiatric Psychiatric exam: Present: agitated - Skin Skin exam: Present: warm, dry Medical,Surgical,& Family Hx - Medical History Cardio: History of: Cardiac Dysrhythmia (atrial fib flutter with tachybradycardia syndrome; pacemaker placement), CHF (with preserved ejection fraction), Hypertension, Pacemaker Psychological: History of: Depression Neurology: History of: TIA Endocrine: History of: Diabetes Mellitus (NIDDM) Rheumatology: History of;: Psoriasis Respiratory: History of: Obstructive Sleep Apnea Renal: History of: Renal Problems (chronic renal insufficiency) Gastrointestinal: History of: Liver Problems (cirrhosis) Musculoskeletal: History of: Musculoskeletal Problems (WEAK IN LOWER EXTREMITIES ) Hematology: History of: Anemia (chronic disease and illness), Blood Transfusion Reaction (NO REACTION) - Surgical History Cardiac Surgeries: Sugical HX of: Internal Defibrillator (pacemaker) - Family History Family History: Reports;: Family Diabetes (MOTHER), Family Heart Disease, Family Hypertension (MOTHER), Family Psychiatric Problems (MOTHER) - Social History Smoking Status: Former smoker Frequency of Alcohol Use: Frequently Type of Drug Use: None Results - Labs CBC & BMP: 06/23/16 04:35 06/23/16 04:35 Labs: PO2 is 166 with a PCO2 of 47 and pH of 7.19 - Diagnostic Findings Procedure: Chest x-ray: image reviewed by me, report reviewed by me (Chest x- ray shows cardiomegaly and there is some left lung infiltrate) Quality Measures - VTE Contraindication to Pharmacological VTE Prophylaxis: Active Bleeding
--- NOTE | 2016-06-23 08:40 | Cardiology Progress Note ---
Assessment and Plan (1) Atrial flutter with rapid ventricular response Status: Acute Assessment and plan: He's had acute atrial dysrhythmias but I think his atrial flutter and rapid ventricular response is difficult to manage secondary to his underlying acute medical issues. Current Visit: Yes (2) Hypertension Status: Chronic Assessment and plan: His blood pressure stable at this time. Pressures were up and down. We'll continue to watch. Current Visit: No (3) CHF (congestive heart failure) Status: Acute Assessment and plan: LV function is normal with babysitting is some diastolic dysfunction but also secondary to his hypoalbuminemia and other medical issues. As his morbid fluid issue then an LV function is. Current Visit: No Qualifiers: Congestive heart failure type: systolic Congestive heart failure chronicity : acute on chronic Qualified Code(s): I50.23 - Acute on chronic systolic ( congestive) heart failure (4) Failure to thrive Status: Chronic Assessment and plan: This is secondary to multiple medical issues and problems. Current Visit: Yes Qualifiers: Failure to thrive age range: in adult Qualified Code(s): R62.7 - Adult failure to thrive (5) Paroxysmal atrial fibrillation Status: Chronic Assessment and plan: Atrial fibrillations denies muscle problems atrial flutter is at this time. Current Visit: Yes (6) Obstructive sleep apnea Problem details: refusing his mask Status: Chronic Assessment and plan: Complications overall issues. Current Visit: Yes (7) Acute pancreatitis Status: Resolved Current Visit: Yes Qualifiers: Pancreatitis type: alcohol induced (8) Alcoholic cirrhosis Status: Acute Current Visit: Yes (9) Alcohol abuse Status: Chronic Current Visit: Yes Cardiology - PN: Subj Interval history: Primary composition stone applicator is Dr. Leon, Dr. Reyes is PCP. The patient this morning had some increased shortness of breath and increased heart rate. He has chronic issues with atrial tachycardia/flutter. This of course exacerbated during his acute illness in the hospital. He remains on IV Cardizem and we restarted his sotalol. This morning he had increased short of breath and increased heart rate. His chest x-ray indicates that is had some increased cardiovascular congestion based on report. The patient is not having any complaints of chest pain or abdominal pain. He continues to be slightly edematous but he has decreased albumin at 2.0. He has potassium is 3.5. His troponin is low nondetectable. He is acidotic with a PCO2 of 47.8 and PO2 of 166. Appears to be a metabolic acidosis. His CBC reveals improved H&H and is WBC is okay. His ECG does not reveal any acute changes for ischemia. He still in atrial tachycardia/flutter. Should be noted previously his ejection fraction was 60% on the 12th of this month. Exam (Progress Note) - Constitutional Vitals: Period Temp Pulse Resp BP Sys/Mcbride Pulse Ox Last 24 Hr 97.5 F-98.3 F 63-118 12-31 84-160/39-95 88-100 Exam: General appearance: Obese, uncomfortable. He is slightly agitated. HEENT exam: normal inspection, atraumatic Neck exam: normal inspection no JVD. No carotid bruit. Trachea is in midline Respiratory/lungs exam: clear to auscultation bilaterally good air movement. Cardiovascular exam: Tachycardic but regular rate and rhythm, no murmur or gallop or rub. No precordial lift. Chest wall exam: nontender GI/Abdominal exam: Obese with bowel sounds, soft, nontender. Extremeties/musculoskeletal: normal inspection without significant edema and no cyanosis. Neurological exam: alert, oriented X3, no focal deficits Psychiatric exam: normal affect, normal mood. Cognitive function is grossly normal. Skin exam: normal color, warm Result/EKG - Labs CBC & BMP: 06/23/16 04:35 06/23/16 04:35 Lab Results: I have reviewed the past 24 hour labs Labs: Laboratory Results - last 24 hr 06/22/16 06/22/16 06/23/16 11:47 17:57 00:14 WBC RBC Hgb Hct MCV MCH MCHC RDW Plt Count MPV Neut % (Auto) Lymph % (Auto) [place] % (Auto) Eos % (Auto) Baso % (Auto) Neut # (Auto) Lymph # (Auto) [place] # (Auto) Eos # (Auto) Baso # (Auto) Total Counted Immature Gran % Nucleated RBC % Immature Gran # Segmented Neutrophils Lymphocytes Monocytes Nucleated RBCs # Platelet Estimate Hypochromasia Macrocytosis Morphology Comment ABG pH ABG pCO2 ABG pO2 ABG HCO3 ABG Total CO2 ABG O2 Saturation ABG Base Excess FiO2 Sodium Potassium Chloride Carbon Dioxide Anion Gap BUN Creatinine GFR Calculation BUN/Creatinine Ratio Glucose POC Glucose 78 117 H 100 Calculated Osmolality Calcium Total Bilirubin AST ALT Alkaline Phosphatase Ammonia Total Creatine Kinase CK-MB (CK-2) Troponin I Total Protein Albumin Globulin Albumin/Globulin Ratio 06/23/16 06/23/16 06/23/16 04:35 04:35 05:16 WBC 7.2 RBC 3.47 L Hgb 11.2 L Hct 34.5 L MCV 99.4 MCH 32 MCHC 32.5 RDW 18.3 H Plt Count 190 D MPV 10.2 Neut % (Auto) 66.2 Lymph % (Auto) 14.9 L [place] % (Auto) 14.4 H Eos % (Auto) 2.6 Baso % (Auto) 0.4 Neut # (Auto) 4.8 Lymph # (Auto) 1.1 L [place] # (Auto) 1.0 H Eos # (Auto) 0.2 Baso # (Auto) 0.0 Total Counted 100 Immature Gran % 1.5 Nucleated RBC % 0.0 Immature Gran # 0.11 Segmented Neutrophils 71 Lymphocytes 14 L Monocytes 15 Nucleated RBCs # 0.00 Platelet Estimate Normal Hypochromasia 1+ Macrocytosis Slight Morphology Comment ABG pH ABG pCO2 ABG pO2 ABG HCO3 ABG Total CO2 ABG O2 Saturation ABG Base Excess FiO2 Sodium 140 Potassium 3.5 Chloride 109 H Carbon Dioxide 23 Anion Gap 11.5 BUN 9 Creatinine 0.70 GFR Calculation 132 BUN/Creatinine Ratio 12.00 Glucose 106 POC Glucose 107 H Calculated Osmolality 277.4 Calcium 7.9 L Total Bilirubin 2.20 H AST 93 H ALT 33 Alkaline Phosphatase 147 H Ammonia 43 H Total Creatine Kinase CK-MB (CK-2) Troponin I Total Protein 5.3 L Albumin 3.0 L Globulin 2.3 Albumin/Globulin Ratio 1.3 06/23/16 06/23/16 07:05 07:10 WBC RBC Hgb Hct MCV MCH MCHC RDW Plt Count MPV Neut % (Auto) Lymph % (Auto) [place] % (Auto) Eos % (Auto) Baso % (Auto) Neut # (Auto) Lymph # (Auto) [place] # (Auto) Eos # (Auto) Baso # (Auto) Total Counted Immature Gran % Nucleated RBC % Immature Gran # Segmented Neutrophils Lymphocytes Monocytes Nucleated RBCs # Platelet Estimate Hypochromasia Macrocytosis Morphology Comment ABG pH 7.199 L* ABG pCO2 47.8 ABG pO2 166.0 H ABG HCO3 16.9 L ABG Total CO2 17.2 L ABG O2 Saturation 98.7 ABG Base Excess -9.5 L FiO2 100.00 Sodium Potassium Chloride Carbon Dioxide Anion Gap BUN Creatinine GFR Calculation BUN/Creatinine Ratio Glucose POC Glucose Calculated Osmolality Calcium Total Bilirubin AST ALT Alkaline Phosphatase Ammonia Total Creatine Kinase 74 D CK-MB (CK-2) 1.6 Troponin I < 0.015 Total Protein Albumin Globulin Albumin/Globulin Ratio - Impressions Impressions: ECG with atrial tachycardia atrial flutter with fast ventricular response. No acute ischemic changes. Quality Measures - VTE Contraindication to Pharmacological VTE Prophylaxis: Active Bleeding
[2016-06-23] MEDS: LEVOTHYROXINE 75 MCG TABLET PO SCH (08:42)
[2016-06-23] MEDS: PIPERACILLIN/TAZOBACTAM 3,375 MG in SODIUM CHLORIDE 0.9% 100 ML IV SCH ×2 (09:10→17:48)
[2016-06-23] MEDS: DESITIN 4OZ/NYSTATIN 15 GRAM MIXTURE PASTE TOP SCH ×2 (09:19→21:43)
[2016-06-23] MEDS: PANTOPRAZOLE 40 MG VIAL IV SCH (09:42)
[2016-06-23] MEDS: MEGESTROL 400 MG/10 ML UDCUP PO SCH ×2 (10:16→21:42)
[2016-06-23] MEDS: SOTALOL 80 MG TABLET PO SCH ×2 (10:16→21:45)
[2016-06-23] MEDS: chlordiazePOXIDE 25 MG CAPSULE PO SCH ×3 (10:16→21:42)
[2016-06-23] MEDS: LACTULOSE 20 GM/30 ML UDCUP PO SCH ×2 (10:16→21:41)
[2016-06-23] MEDS: MIDODRINE 5 MG TABLET PO SCH ×3 (10:17→21:42)
[2016-06-23] MEDS: METOPROLOL TARTRATE 5 MG/5 ML VIAL IV PRN (10:34)
[2016-06-23] MEDS: THIAMINE 200 MG/2 ML VIAL IV SCH (10:34)
[2016-06-23] MEDS: NYSTATIN CREAM 15 GM TUBE TOP SCH ×2 (10:35→21:43)
[2016-06-23 11:30] LABS: Troponin I Only < 0.015 NG/ML (0.00-0.045)
--- NOTE | 2016-06-23 12:20 | Gastrointestinal Progress Note ---
Assessment and Plan (1) Anemia Status: Acute Assessment and plan: 06/23-Hgb 11.2, no overt bleeding. Plan and addendum to follow by Dr Ray. 06/22-Hgb 9.7, no overt bleeding. No pressor support. Continue to monitor for bleeding and HH. Plan and addendum to follow by Dr Ray 06/21-hemoglobin down at 8.6 today. Receiving 2 units of blood. No overt bleeding. Continue to monitor H&H. Plan an addendum to followed by Dr. Ray. 06/18-Hgb stable at 9.2 w/o overt bleeding. PICC line placed today. Pressor support started. EGD findings noted. Continue to monitor HH and transfuse as needed. Plan and addendum to follow by Dr Ray. 06/16-Findings on admission of hgb 7.8, no reports of overt bleeding. No known prior endoscopy. Noted to be on Eliquis prior to admission for A-fib, held at present time. Continue to monitor HH. Plan and addendum to follow by Dr Ray. Current Visit: Yes Gastroenterology - PN: Subj Interval history: CC: Anemia Patient is seen lethargic and more somnolent today. Nursing staff at bedside states patient has had some respiratory distress overnight and pulmonology has been consulted. There is question of possible aspiration as well. Chest x-ray this morning shows cardiac decompensation without lung infiltrates effusions or pneumothorax at present time. He is currently saturating in the high 90s on nonrebreather mask at 100%. He has been started on Zosyn at this time. Abdomen is soft, nontender. No overt bleeding has been reported. Hemoglobin remained stable 11.2. ROS: No acute distress at present time. Exam (Progress Note) - Constitutional Vitals: Period Temp Pulse Resp BP Sys/Mcbride Pulse Ox Last 24 Hr 97.5 F-98.3 F 63-118 12-31 87-160/39-95 88-100 General appearance: normal weight, no acute distress - Head Head exam: Present: normal inspection, normocephalic - Eye Eye exam: Present: other (lids and conjunctiva unremarkable). Absent: scleral icterus - ENT ENT exam: Present: normal exam, normal oropharynx - Neck Neck exam: Present: normal inspection - Respiratory Respiratory exam: Present: clear to auscultation bilaterally. Absent: rales, rhonchi, wheezes - Cardiovascular Cardiovascular exam: Present: regular rate and rhythm. Absent: diastolic murmur , JVD, systolic murmur - GI/Abdominal GI/Abdominal exam: Present: normal bowel sounds, soft. Absent: ascites, distended, mass, organomegaly, tenderness - Extremities Exam Extremities exam: Present: normal inspection, full ROM - Back Exam Back exam: Present: normal inspection - Psychiatric Psychiatric exam: Present: normal affect, normal mood - Skin Skin exam: Present: normal color, warm. Absent: dry Results - Labs CBC & BMP: 06/23/16 04:35 06/23/16 04:35 Lab Results: I have reviewed the past 24 hour labs
[2016-06-23 13:50] LABS: Troponin I Only < 0.015 NG/ML (0.00-0.045)
[2016-06-23 15:31] LABS: ABG Base Excess -8.1 MMOL/L (-2.5-2.5); ABG HCO3 17.9 MMOL/L (20-26); ABG Oxygen Saturation 99.3 % (95-100); ABG PCO2 56.1 MM HG (35-48); ABG TCO2 19.5 MMOL/L (23-27); Allen Test Positive
--- NOTE | 2016-06-23 15:31 | XRay Report ---
Portable chest Date: 06/23/2016 Clinical history: Shortness of breath Comparison: 06/23/2016 Technique: Portable AP sitting chest Findings: Stable cardiomegaly, left subclavian atrioventricular permanent pacemaker, and right arm PICC line. Reduced parenchymal findings with residual small bilateral pleural effusions. Stable mediastinum and osseous structures. Impression: Improved CHF/bilateral pneumonia with minimal decrease in the size of pleural effusions. Stable left subclavian atrioventricular permanent pacemaker and right arm PICC line. PROCEDURE INTERPRETED AT [facility] DEPARTMENT OF RADIOLOGY Final Report Signed by: Dr. Susan Lawrence
[2016-06-23 15:41] LABS: ABG PH 7.179 (7.35-7.45)
[2016-06-23] MEDS ORDERED: ETOMIDATE 20 MG/10 ML VIAL IV ONE ×2 (15:57→16:46)
[2016-06-23] MEDS ORDERED: PROPOFOL 1,000 MG/100 ML BOTTLE IV ONE (16:00)
[2016-06-23] MEDS ORDERED: SUCCINYLCHOLINE 200 MG/10 ML VIAL ONE (16:00)
--- NOTE | 2016-06-23 16:25 | Event Note ---
Patient's respiratory status continued to decline. Repeat chest x-ray showed evidence of pulmonary edema and ABGs will pH is 7.17 with climbing CO2 of 59. I discussed his deterioration with his and expressed my desire to put him on ventilator for ventilator support and airway management. I think he probably did aspirate early this morning. Patient does need nutritional support and this will be ordered as well. His understands the critical nature of his condition. Patient was intubated using videoscope. 8 mm ET tube was placed and bilateral breath sounds are noted after placement as well as positive CO2 indicator color change. Tube position was 23 mm at the teeth. Patient was pre-medicated with succinylcholine and etomidate.
--- NOTE | 2016-06-23 16:44 | XRay Report ---
Portable chest Date: 06/23/2016 Clinical history: Post intubation Comparison: 06/23/2016 Technique: Portable AP sitting chest Findings: Stable cardiomegaly, left subclavian atrioventricular pacemaker, and right arm PICC line. Endotracheal tube in satisfactory position between the clavicles and summer. Progressive diffuse parenchymal findings with minimally larger pleural effusions. Stable mediastinum and osseous structures. Impression: Endotracheal tube in satisfactory position. Progressive CHF/bilateral pneumonia was minimally larger pleural effusions. Increased atelectasis. Stable left subclavian atrioventricular pacemaker and right arm PICC line. PROCEDURE INTERPRETED AT [facility] DEPARTMENT OF RADIOLOGY Final Report Signed by: Dr. Susan Lawrence
[2016-06-23] MEDS ORDERED: SUCCINYLCHOLINE 200 MG/10 ML VIAL IV ONE (16:46)
[2016-06-23 16:52] LABS: ABG Base Excess -8.3 MMOL/L (-2.5-2.5); ABG HCO3 17.7 MMOL/L (20-26); ABG PO2 72.4 MM HG (80-95); ABG TCO2 18.4 MMOL/L (23-27); Allen Test Positive; Pt O2 Delivery Device Ventilator
[2016-06-23 16:54] LABS: ABG PH 7.206 (7.35-7.45)
[2016-06-23] MEDS: PHENYLEPHRINE DRIP 40 MG/250 ML PREMIX IV PRN (17:46)
[2016-06-23] MEDS: FUROSEMIDE 40 MG/4 ML VIAL IV SCH (17:48)
[2016-06-23] MEDS: PROPOFOL 1,000 MG/100 ML BOTTLE IV SCH (18:10)
[2016-06-23 18:22] LABS: Troponin I Only < 0.015 NG/ML (0.00-0.045)
[2016-06-23 19:51] LABS: Apearance,Urine CLOUDY (Clear); Bacteria,Urine Occasional /HPF (Few); Bilirubin,Urine Negative (Negative); Blood, Urine Moderate mg/dL (Negative); Glucose,Urine (UA) Negative (Negative); Hyaline Casts,Urine 13 /LPF (0-3); Ketones,Urine Negative (Negative); Mucus,Urine Occasional /LPF (Occasional); Nitrite,Urine Negative (Negative); Protein,Urine Negative; RBC,Urine 12 /HPF (0-4); Squamous Epithelial Cell,Urine Occasional /HPF (0-10); Urine Color Yellow (Yellow); Urine Specific Gravity 1.004 (1.001-1.035); Urine Urobilinogen < 2.0 EU/DL (0.2-1.0)
[2016-06-24] MEDS: ALBUTEROL/IPRATROPIUM 3 ML NEB RESP TX SCH ×4 (00:11→19:28)
[2016-06-24] MEDS: INSULIN REGULAR 100 UNIT/ML SUBCUT SCH ×4 (00:20→19:09)
[2016-06-24] MEDS: FAMOTIDINE 20 MG/2 ML VIAL IV SCH (00:21)
[2016-06-24] MEDS: PIPERACILLIN/TAZOBACTAM 3,375 MG in SODIUM CHLORIDE 0.9% 100 ML IV SCH ×3 (00:22→15:32)
[2016-06-24] MEDS: ALBUMIN 25% 25 GM in PREMIX 1 EACH IV SCH ×3 (03:51→20:22)
[2016-06-24 04:18] LABS: ABG Base Excess -4.2 MMOL/L (-2.5-2.5); ABG HCO3 20.9 MMOL/L (20-26); ABG Oxygen Saturation 99.6 % (95-100); ABG PCO2 32.4 MM HG (35-48); ABG PH 7.395 (7.35-7.45); ABG TCO2 18.1 MMOL/L (23-27); Allen Test Positive; Pt O2 Delivery Device Ventilator
[2016-06-24 04:20] LABS: Basophils % 0.2 % (0.0-0.8); Eosinophils # 0.1 10*3/uL (0.0-0.87); Hematocrit 29.1 VOL% (42.0-52.0); Hemoglobin 9.4 GM/DL (14.0-18.0); Immature Granulocytes % 0.4 %; Immature Granulocytes Absolute 0.06 #; Lymphocytes # 0.9 10*3/uL (1.4-4.0); Mean Corpuscular HGB Conc 32.3 GM/DL (32-36); Mean Corpuscular Hemoglobin 32 PG (27-34); Mean Platelet Volume 10.7 FL (9.6-12.0); Monocytes % 7.6 % (1.7-12.7); Neutrophils # 11.3 10*3/uL (1.4-7.4); Neutrophils % 83.8 % (38.7-73.9); Platelet Count 176 T/CUMM (130-400); Red Blood Count 2.97 MC/CUMM (3.8-5.5); Red Cell Distribution Width 17.8 % (9.3-17.3); White Blood Count 13.5 T/CUMM (4-12)
[2016-06-24 04:48] LABS: Albumin 2.9 G/DL (3.4-5.0); Bilirubin,Total 2.2 MG/DL (0.2-1.0); Calcium 8.1 MG/DL (8.5-10.1); Osmolality,Calculated 283.8 MOS/KG (273-304); Potassium 3.6 MMOL/L (3.5-5.1); Total Protein 4.6 G/DL (6.4-8.3)
[2016-06-24] MEDS: PROPOFOL 1,000 MG/100 ML BOTTLE IV SCH ×3 (04:58→20:25)
[2016-06-24 05:12] LABS: Hypochromasia 1+; Platelet Estimate Normal
[2016-06-24 05:13] LABS: Macrocytosis Slight
[2016-06-24] MEDS: LEVOTHYROXINE 75 MCG TABLET PO SCH (06:31)
--- NOTE | 2016-06-24 07:37 | Family Practice Progress Note ---
Family Practice - PN: Subj Interval history: Patient had a good night according to nursing staff no issues with the ventilator. Repeat chest x-ray this morning is improved. Arterial blood gas this morning showed resolution of his acidosis and his oxygenation is quite adequate. He is sedated on deprivation. His ammonia level is 36 and his renal function is good. Exam (Progress Note) - Constitutional Vitals: Period Temp Pulse Resp BP Sys/Mcbride Pulse Ox Last 24 Hr 97.1 F-99.1 F 101-141 10-30 76-136/33-112 91-100 Exam: Objectively well-developed white male who is presently on ventilator support. He is sedated. Cardiovascular: Heart rates irregular with no murmurs or gallops. Respiratory: Lungs clear to auscultation bilaterally. Abdomen: Abdomen soft and nontender to palpation. Neuro: Patient is moving all extremities when awake. Results - Labs CBC & BMP: 06/24/16 03:40 06/24/16 03:40 Lab Results: I have reviewed the past 24 hour labs - Diagnostic Findings Procedure: Chest x-ray: report reviewed by me (Improvement in chest x-ray from yesterday.) Assessment and Plan (1) Atrial flutter Status: Acute Assessment and plan: 06/22/2016: Heart rate still bit elevated and he appears to be in persistent flutter 06/23/2016: Persistent atrial flutter. Current Visit: No (2) Anemia Status: Acute Assessment and plan: 06/22/2016: Hematocrit remained stable. Patient has heme positive stool. Current Visit: Yes (3) Obstructive sleep apnea Problem details: refusing his mask Status: Chronic Assessment and plan: 06/22/2016: Patient apparently refusing to wear his CPAP mask. Current Visit: Yes (4) Acute pancreatitis Status: Resolved Assessment and plan: 06/22/2016: Patient's pancreatitis has resolved. Current Visit: Yes Qualifiers: Pancreatitis type: alcohol induced (5) Aspiration pneumonitis Status: Acute Assessment and plan: 06/23/2016: Have ordered 40 of Lasix. Blood cultures have been ordered. Will ask pulmonary to see as well. Current Visit: Yes Quality Measures - VTE Contraindication to Pharmacological VTE Prophylaxis: Active Bleeding
--- NOTE | 2016-06-24 07:57 | Pulmonology Progress Note ---
Pulmonary - PN: Subj Interval history: Patient is a 60-year-old white man that is in very poor condition with obesity and chronic liver disease and heart disease. He was having more respiratory distress yesterday and had to be intubated. He had considerable left lung infiltrate but does look a little better on the ventilator now. His oxygenation is better and his chest x-ray is improving. He is sedated now and comfortable on the ventilator. Exam (Progress Note) - Constitutional Vitals: Period Temp Pulse Resp BP Sys/Mcbride Pulse Ox Last 24 Hr 97.1 F-99.1 F 97-141 10-30 76-136/33-112 91-100 Exam: General appearance: no distress (He is sedated and comfortable on the ventilator at present.) - Head Head exam: Present: normal inspection, normocephalic - Eye Eye exam: Present: EOMI. Absent: scleral icterus Pupils: Present: KARLEE - ENT ENT exam: Present: other (Patient has a very narrow hypopharynx) he has an ET tube in good position. - Neck Neck exam: Present: other (Patient does have a large neck). Absent: lymphadenopathy, thyromegaly - Respiratory Respiratory exam: Present: He has fairly good breath sounds bilaterally with minimal rhonchi. - Cardiovascular Cardiovascular exam: Present: irregular rhythm, tachycardia. Absent: gallop, systolic murmur - GI/Abdominal GI/Abdominal exam: Present: hypoactive bowel sounds, soft, other (Abdomen is large). Absent: organomegaly, tenderness - Extremities Exam Extremities exam: Absent: calf tenderness, edema - Neurological Exam Neurological exam: Present: altered (Patient is sedated now.) - Psychiatric Psychiatric exam: Present: He is sedated and calm on the ventilator. - Skin Skin exam: Present: warm, dry Results - Labs CBC & BMP: 06/24/16 03:40 06/24/16 03:40 Labs: PO2 is 147 with a PCO2 of 32 and a pH of 7.39 - Diagnostic Findings Procedure: Chest x-ray: image reviewed by me, report reviewed by me (Chest x- ray shows bibasilar infiltrates but is better.) Assessment and Plan (1) NICM (nonischemic cardiomyopathy) Problem details: improved EF per updated ECHO Status: Chronic Assessment and plan: The patient does have cardiomegaly and certainly looks like he may have some congestive heart failure. He had good urine output yesterday. Current Visit: Yes (2) Paroxysmal atrial fibrillation Status: Chronic Assessment and plan: The patient continues to have an irregular rhythm but his heart rate is better. Current Visit: Yes (3) Obstructive sleep apnea Problem details: refusing his mask Status: Chronic Assessment and plan: Patient is combative at times and will not use his CPAP. Current Visit: Yes (4) Alcoholic cirrhosis Status: Acute Assessment and plan: Patient has a bilirubin of 2.2 and a slightly elevated ammonia level. He is stable on the ventilator at present. Current Visit: Yes (5) Aspiration pneumonitis Status: Acute Assessment and plan: Patient does have some left lung infiltrate. He will be covered with antibiotics. He did require intubation but does look better now. Current Visit: Yes
--- NOTE | 2016-06-24 07:58 | EKG Report ---
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
--- NOTE | 2016-06-24 08:50 | XRay Report ---
XR chest 1V portable Indication: Respiratory failure Comparison: 23 June 2016 Findings: The heart and mediastinum are stable in size and configuration. Lines and tubes are unchanged in position. Lines and tubes are unchanged in position. Pacemaker device is unchanged in position. The pulmonary vascularity is increased with bilateral increased interstitial lung density. No other lung infiltrates, effusions, pneumothorax or other abnormality is demonstrated. Impression: Findings suggest slight increase in cardiac decompensation. PROCEDURE INTERPRETED AT [facility] DEPARTMENT OF RADIOLOGY Final Report Signed by: Dr. Milind Maharaj
--- NOTE | 2016-06-24 09:22 | Cardiology Progress Note ---
<Risa Hannon E - Last Filed: 06/24/16 09:12> Assessment and Plan - Time spent with patient Time spent with patient: Less than 30 minutes (1) Atrial flutter Status: Acute Assessment and plan: He's had acute atrial dysrhythmias but I think his atrial flutter and rapid ventricular response is difficult to manage secondary to his underlying acute medical issues. Continue IV Cardizem and PO sotalol. Current Visit: No (2) Paroxysmal atrial fibrillation Status: Chronic Assessment and plan: Currently in atrial flutter. He was previously on aspirin and Eliquis for stroke prevention. These are being held due to his profound anemia. He has required transfusion of 5 units PRBCs this admission, last transfusion on 2016. Current Visit: Yes (3) CHF (congestive heart failure) Status: Acute Assessment and plan: Echocardiogram 06/16/16 revealed EF 60%, grade I/IV diastolic dysfunction, likely secondary to his hypoalbuminemia and other medical issues. Current Visit: No Qualifiers: Congestive heart failure type: systolic Congestive heart failure chronicity : acute on chronic Qualified Code(s): I50.23 - Acute on chronic systolic ( congestive) heart failure (4) Obstructive sleep apnea Problem details: refusing his mask Status: Chronic Assessment and plan: Noncompliant, refuses CPAP mask. Complicates his overall issues. Current Visit: Yes (5) Hypertension Status: Chronic Assessment and plan: Pressures have been up and down. Vasopressors were restarted due to hypotension. He continues to require IV Cardizem and propofol for sedation while on mechanical ventilation. Will continue to monitor. Current Visit: No (6) Alcoholic cirrhosis Status: Acute Current Visit: Yes (7) Anemia Status: Acute Current Visit: Yes (8) Obesity Status: Chronic Current Visit: Yes (9) Alcohol abuse Status: Chronic Assessment and plan: Per Dr. Garcia's notes, the patient's would like for him to go to a treatment center when he is medically stable. Current Visit: Yes (10) Failure to thrive Status: Chronic Assessment and plan: This is secondary to multiple medical issues and problems. Current Visit: Yes Qualifiers: Failure to thrive age range: in adult Qualified Code(s): R62.7 - Adult failure to thrive Cardiology - PN: Subj Interval history: Vice President Of Procurement: Dr. Drake PCP: Dr. Reyes Yesterday, Mr. Tracy had some increased shortness of breath and required nonrebreather. He continues to decline and yesterday afternoon he required intubation. It is suspected that he may have aspirated. Today he remains on mechanical ventilation and sedated with Diprivan. He remains on IV Cardizem and continues to have atrial flutter with rates in the 90s-100s. His sotalol was restarted during this hospitalization. He is requiring vasopressor support with phenylephrine. EKG does not reveal any acute changes for ischemia. His previous ejection fraction on the 12th of this month was 60%. ABGs this morning, much improved from yesterday. His potassium was 3.6, creatinine 0.9, troponins are undetectable. Exam (Progress Note) - Constitutional Vitals: Period Temp Pulse Resp BP Sys/Mcbride Pulse Ox Last 24 Hr 97.1 F-99.1 F 97-141 10-28 76-136/33-112 91-100 Exam: General appearance: Orally intubated and sedated on ventilator. Obese. no acute distress. - Head Head exam: Present: normal inspection, normocephalic, atraumatic. Absent: hematoma, laceration - Eye Eye exam: Present: EOMI. Absent: conjunctival injection, nystagmus, periorbital swelling, scleral icterus, laceration to eyelids Pupils: Present: PERRL. Absent: constricted, dilated, fixed, irregular, unequal - ENT ENT exam: Present: Orally intubated, normal external ear exam. NG tube in place and clamped. - Neck Neck exam: Present: normal inspection. Absent: lymphadenopathy, meningismus, tenderness, thyromegaly - Respiratory Respiratory exam: Present: Mechanically ventilated breath sounds. Absent: accessory muscle use - Cardiovascular Cardiovascular exam: Present: Mildly irregular rate and rhythm, Tachycardia. Absent: carotid bruit, gallop, JVD, rubs, murmur - GI/Abdominal GI/Abdominal exam: Present: normal bowel sounds, soft. Absent: distended, firm , guarding, hernia, mass, tenderness, rebound. - Extremities Exam Extremities exam: Present: normal inspection, normal capillary refill. Upper extremity pulses 2+. Lower extremity pulses 2+. Absent: calf tenderness, edema - Back Exam Back exam: Present: Unable to examine due to habitus. Sedated on mechanical ventilator. - Neurological Exam Neurological exam: Present: Limited due to habitus (on ventilator). Arousable to verbal stimuli. No resting or essential tremor. - Psychiatric Psychiatric exam: Present: Unable to adequately assess due to patient being sedated and on mechanical ventilation. - Skin Skin exam: Present: normal color, warm, dry, intact. Absent: cyanosis, diaphoretic, rash, urticaria Result/EKG - Labs CBC & BMP: 06/24/16 03:40 06/24/16 03:40 Lab Results: I have reviewed the past 24 hour labs Labs: Laboratory Results - last 24 hr 06/23/16 06/23/16 06/23/16 07:45 07:53 10:30 WBC RBC Hgb Hct MCV MCH MCHC RDW Plt Count MPV Neut % (Auto) Lymph % (Auto) [place] % (Auto) Eos % (Auto) Baso % (Auto) Neut # (Auto) Lymph # (Auto) [place] # (Auto) Eos # (Auto) Baso # (Auto) Immature Gran % Nucleated RBC % Immature Gran # Nucleated RBCs # Platelet Estimate Hypochromasia Macrocytosis Morphology Comment ABG pH ABG pCO2 ABG pO2 ABG HCO3 ABG Total CO2 ABG O2 Saturation ABG Base Excess FiO2 Sodium Potassium Chloride Carbon Dioxide Anion Gap BUN Creatinine GFR Calculation BUN/Creatinine Ratio Glucose POC Glucose Calculated Osmolality Calcium Total Bilirubin AST ALT Alkaline Phosphatase Ammonia Total Creatine Kinase 70 CK-MB (CK-2) 1.5 Troponin I < 0.015 B-Natriuretic Peptide 501 H Total Protein Albumin Globulin Albumin/Globulin Ratio Urine Color Yellow Urine Appearance Cloudy Urine pH 5.0 Ur Specific [place] 1.004 Urine Protein Negative Urine Glucose (UA) Negative Urine Ketones Negative Urine Blood Moderate Urine Nitrate Negative Urine Bilirubin Negative Urine Urobilinogen < 2.0 H Urine Leukocytes Trace Urine RBC 12 Ur Squamous Epith Cells Occasional Urine Bacteria Occasional Hyaline Casts 13 Urine Mucus Occasional Ur Culture Indicated? Ordered separately 06/23/16 06/23/16 06/23/16 12:33 13:15 15:10 WBC RBC Hgb Hct MCV MCH MCHC RDW Plt Count MPV Neut % (Auto) Lymph % (Auto) [place] % (Auto) Eos % (Auto) Baso % (Auto) Neut # (Auto) Lymph # (Auto) [place] # (Auto) Eos # (Auto) Baso # (Auto) Immature Gran % Nucleated RBC % Immature Gran # Nucleated RBCs # Platelet Estimate Hypochromasia Macrocytosis Morphology Comment ABG pH 7.179 L* ABG pCO2 56.1 H ABG pO2 192.0 H ABG HCO3 17.9 L ABG Total CO2 19.5 L ABG O2 Saturation 99.3 ABG Base Excess -8.1 L FiO2 100.00 Sodium Potassium Chloride Carbon Dioxide Anion Gap BUN Creatinine GFR Calculation BUN/Creatinine Ratio Glucose POC Glucose 109 H Calculated Osmolality Calcium Total Bilirubin AST ALT Alkaline Phosphatase Ammonia Total Creatine Kinase 61 CK-MB (CK-2) 1.3 Troponin I < 0.015 B-Natriuretic Peptide Total Protein Albumin Globulin Albumin/Globulin Ratio Urine Color Urine Appearance Urine pH Ur Specific [place] Urine Protein Urine Glucose (UA) Urine Ketones Urine Blood Urine Nitrate Urine Bilirubin Urine Urobilinogen Urine Leukocytes Urine RBC Ur Squamous Epith Cells Urine Bacteria Hyaline Casts Urine Mucus Ur Culture Indicated? 06/23/16 06/23/16 06/23/16 16:50 17:41 17:54 WBC RBC Hgb Hct MCV MCH MCHC RDW Plt Count MPV Neut % (Auto) Lymph % (Auto) [place] % (Auto) Eos % (Auto) Baso % (Auto) Neut # (Auto) Lymph # (Auto) [place] # (Auto) Eos # (Auto) Baso # (Auto) Immature Gran % Nucleated RBC % Immature Gran # Nucleated RBCs # Platelet Estimate Hypochromasia Macrocytosis Morphology Comment ABG pH 7.206 L* ABG pCO2 50.0 H ABG pO2 72.4 L ABG HCO3 17.7 L ABG Total CO2 18.4 L ABG O2 Saturation 93.0 L ABG Base Excess -8.3 L FiO2 60.00 Sodium Potassium Chloride Carbon Dioxide Anion Gap BUN Creatinine GFR Calculation BUN/Creatinine Ratio Glucose POC Glucose 102 Calculated Osmolality Calcium Total Bilirubin AST ALT Alkaline Phosphatase Ammonia Total Creatine Kinase 50 CK-MB (CK-2) 1.2 Troponin I < 0.015 B-Natriuretic Peptide Total Protein Albumin Globulin Albumin/Globulin Ratio Urine Color Urine Appearance Urine pH Ur Specific [place] Urine Protein Urine Glucose (UA) Urine Ketones Urine Blood Urine Nitrate Urine Bilirubin Urine Urobilinogen Urine Leukocytes Urine RBC Ur Squamous Epith Cells Urine Bacteria Hyaline Casts Urine Mucus Ur Culture Indicated? 06/24/16 06/24/16 06/24/16 00:15 03:40 03:40 WBC 13.5 H D RBC 2.97 L Hgb 9.4 L Hct 29.1 L MCV 98.0 MCH 32 MCHC 32.3 RDW 17.8 H Plt Count 176 MPV 10.7 Neut % (Auto) 83.8 H Lymph % (Auto) 7.0 L [place] % (Auto) 7.6 Eos % (Auto) 1.0 Baso % (Auto) 0.2 Neut # (Auto) 11.3 H Lymph # (Auto) 0.9 L [place] # (Auto) 1.0 H Eos # (Auto) 0.1 Baso # (Auto) 0.0 Immature Gran % 0.4 Nucleated RBC % 0.0 Immature Gran # 0.06 Nucleated RBCs # 0.00 Platelet Estimate Normal Hypochromasia 1+ Macrocytosis Slight Morphology Comment ABG pH ABG pCO2 ABG pO2 ABG HCO3 ABG Total CO2 ABG O2 Saturation ABG Base Excess FiO2 Sodium 144 Potassium 3.6 Chloride 110 H Carbon Dioxide 22 Anion Gap 15.6 H BUN 10 Creatinine 0.90 GFR Calculation 119 BUN/Creatinine Ratio 11.00 Glucose 73 L POC Glucose 79 Calculated Osmolality 283.8 Calcium 8.1 L Total Bilirubin 2.20 H AST 65 H ALT 27 Alkaline Phosphatase 80 Ammonia 36 H Total Creatine Kinase CK-MB (CK-2) Troponin I B-Natriuretic Peptide Total Protein 4.6 L Albumin 2.9 L Globulin 1.7 L Albumin/Globulin Ratio 1.7 Urine Color Urine Appearance Urine pH Ur Specific [place] Urine Protein Urine Glucose (UA) Urine Ketones Urine Blood Urine Nitrate Urine Bilirubin Urine Urobilinogen Urine Leukocytes Urine RBC Ur Squamous Epith Cells Urine Bacteria Hyaline Casts Urine Mucus Ur Culture Indicated? 06/24/16 06/24/16 06/24/16 03:40 04:10 06:25 WBC RBC Hgb Hct MCV MCH MCHC RDW Plt Count MPV Neut % (Auto) Lymph % (Auto) [place] % (Auto) Eos % (Auto) Baso % (Auto) Neut # (Auto) Lymph # (Auto) [place] # (Auto) Eos # (Auto) Baso # (Auto) Immature Gran % Nucleated RBC % Immature Gran # Nucleated RBCs # Platelet Estimate Hypochromasia Macrocytosis Morphology Comment ABG pH 7.395 ABG pCO2 32.4 L ABG pO2 147.0 H ABG HCO3 20.9 ABG Total CO2 18.1 L ABG O2 Saturation 99.6 ABG Base Excess -4.2 L FiO2 60.00 Sodium Potassium Chloride Carbon Dioxide Anion Gap BUN Creatinine GFR Calculation BUN/Creatinine Ratio Glucose POC Glucose 88 Calculated Osmolality Calcium Total Bilirubin AST ALT Alkaline Phosphatase Ammonia Total Creatine Kinase CK-MB (CK-2) Troponin I B-Natriuretic Peptide 491 H Total Protein Albumin Globulin Albumin/Globulin Ratio Urine Color Urine Appearance Urine pH Ur Specific [place] Urine Protein Urine Glucose (UA) Urine Ketones Urine Blood Urine Nitrate Urine Bilirubin Urine Urobilinogen Urine Leukocytes Urine RBC Ur Squamous Epith Cells Urine Bacteria Hyaline Casts Urine Mucus Ur Culture Indicated? - EKG EKG results: interpreted by me (atrial flutter/tachycardia) Quality Measures - VTE Contraindication to Pharmacological VTE Prophylaxis: Active Bleeding <Carlos Butcher - Last Filed: 06/24/16 13:49> Assessment and Plan (1) Atrial flutter with rapid ventricular response Status: Acute Current Visit: Yes (2) Hypertension Status: Chronic Current Visit: No (3) CHF (congestive heart failure) Status: Acute Current Visit: No Qualifiers: Congestive heart failure type: systolic Congestive heart failure chronicity : acute on chronic Qualified Code(s): I50.23 - Acute on chronic systolic ( congestive) heart failure (4) Failure to thrive Status: Chronic Current Visit: Yes Qualifiers: Failure to thrive age range: in adult Qualified Code(s): R62.7 - Adult failure to thrive (5) Paroxysmal atrial fibrillation Status: Chronic Current Visit: Yes (6) Obstructive sleep apnea Problem details: refusing his mask Status: Chronic Current Visit: Yes (7) Acute pancreatitis Status: Resolved Current Visit: Yes Qualifiers: Pancreatitis type: alcohol induced (8) Alcoholic cirrhosis Status: Acute Current Visit: Yes (9) Alcohol abuse Status: Chronic Current Visit: Yes Cardiology - PN: Subj Interval history: Patient personally examined and chart reviewed. Patient is intubated and sedated and unable to interview the patient. I discussed this case with Shelby Hannon DREDGE ENGINEER. Agree with history as well as examination and assessment. In addition is summation Patient now intubated and sedated. He developed progressive restorative failure is probably multifactorial. He has had a positive fluid balance recently. His blood pressure lowest limits diuresing the patient this time. He has persistent atrial flutter which she's had before is on sotalol. He is not on anticoagulation. His last stools involve been heme-negative. Question whether or not he would benefit or at least be protected by low-dose Lovenox for DVT prophylaxis and may give him some stroke protection. His prognosis is very poor at present. I don't think cardioversion at this time would be appropriate but we will try to continue his sotalol. Exam (Progress Note) - Constitutional Vitals: Period Temp Pulse Resp BP Sys/Mcbride Pulse Ox Last 24 Hr 97.2 F-99.1 F 96-141 10-28 76-136/33-112 91-100 Result/EKG - Labs CBC & BMP: 06/24/16 03:40 06/24/16 03:40 Labs: Laboratory Results - last 24 hr 06/23/16 06/23/16 06/23/16 07:45 13:15 15:10 WBC RBC Hgb Hct MCV MCH MCHC RDW Plt Count MPV Neut % (Auto) Lymph % (Auto) [place] % (Auto) Eos % (Auto) Baso % (Auto) Neut # (Auto) Lymph # (Auto) [place] # (Auto) Eos # (Auto) Baso # (Auto) Immature Gran % Nucleated RBC % Immature Gran # Nucleated RBCs # Platelet Estimate Hypochromasia Macrocytosis Morphology Comment ABG pH 7.179 L* ABG pCO2 56.1 H ABG pO2 192.0 H ABG HCO3 17.9 L ABG Total CO2 19.5 L ABG O2 Saturation 99.3 ABG Base Excess -8.1 L FiO2 100.00 Sodium Potassium Chloride Carbon Dioxide Anion Gap BUN Creatinine GFR Calculation BUN/Creatinine Ratio Glucose POC Glucose Calculated Osmolality Calcium Total Bilirubin AST ALT Alkaline Phosphatase Ammonia Total Creatine Kinase 61 CK-MB (CK-2) 1.3 Troponin I < 0.015 B-Natriuretic Peptide Total Protein Albumin Globulin Albumin/Globulin Ratio Urine Color Yellow Urine Appearance Cloudy Urine pH 5.0 Ur Specific [place] 1.004 Urine Protein Negative Urine Glucose (UA) Negative Urine Ketones Negative Urine Blood Moderate Urine Nitrate Negative Urine Bilirubin Negative Urine Urobilinogen < 2.0 H Urine Leukocytes Trace Urine RBC 12 Ur Squamous Epith Cells Occasional Urine Bacteria Occasional Hyaline Casts 13 Urine Mucus Occasional Ur Culture Indicated? Ordered separately 06/23/16 06/23/16 06/23/16 16:50 17:41 17:54 WBC RBC Hgb Hct MCV MCH MCHC RDW Plt Count MPV Neut % (Auto) Lymph % (Auto) [place] % (Auto) Eos % (Auto) Baso % (Auto) Neut # (Auto) Lymph # (Auto) [place] # (Auto) Eos # (Auto) Baso # (Auto) Immature Gran % Nucleated RBC % Immature Gran # Nucleated RBCs # Platelet Estimate Hypochromasia Macrocytosis Morphology Comment ABG pH 7.206 L* ABG pCO2 50.0 H ABG pO2 72.4 L ABG HCO3 17.7 L ABG Total CO2 18.4 L ABG O2 Saturation 93.0 L ABG Base Excess -8.3 L FiO2 60.00 Sodium Potassium Chloride Carbon Dioxide Anion Gap BUN Creatinine GFR Calculation BUN/Creatinine Ratio Glucose POC Glucose 102 Calculated Osmolality Calcium Total Bilirubin AST ALT Alkaline Phosphatase Ammonia Total Creatine Kinase 50 CK-MB (CK-2) 1.2 Troponin I < 0.015 B-Natriuretic Peptide Total Protein Albumin Globulin Albumin/Globulin Ratio Urine Color Urine Appearance Urine pH Ur Specific [place] Urine Protein Urine Glucose (UA) Urine Ketones Urine Blood Urine Nitrate Urine Bilirubin Urine Urobilinogen Urine Leukocytes Urine RBC Ur Squamous Epith Cells Urine Bacteria Hyaline Casts Urine Mucus Ur Culture Indicated? 06/24/16 06/24/16 06/24/16 00:15 03:40 03:40 WBC 13.5 H D RBC 2.97 L Hgb 9.4 L Hct 29.1 L MCV 98.0 MCH 32 MCHC 32.3 RDW 17.8 H Plt Count 176 MPV 10.7 Neut % (Auto) 83.8 H Lymph % (Auto) 7.0 L [place] % (Auto) 7.6 Eos % (Auto) 1.0 Baso % (Auto) 0.2 Neut # (Auto) 11.3 H Lymph # (Auto) 0.9 L [place] # (Auto) 1.0 H Eos # (Auto) 0.1 Baso # (Auto) 0.0 Immature Gran % 0.4 Nucleated RBC % 0.0 Immature Gran # 0.06 Nucleated RBCs # 0.00 Platelet Estimate Normal Hypochromasia 1+ Macrocytosis Slight Morphology Comment ABG pH ABG pCO2 ABG pO2 ABG HCO3 ABG Total CO2 ABG O2 Saturation ABG Base Excess FiO2 Sodium 144 Potassium 3.6 Chloride 110 H Carbon Dioxide 22 Anion Gap 15.6 H BUN 10 Creatinine 0.90 GFR Calculation 119 BUN/Creatinine Ratio 11.00 Glucose 73 L POC Glucose 79 Calculated Osmolality 283.8 Calcium 8.1 L Total Bilirubin 2.20 H AST 65 H ALT 27 Alkaline Phosphatase 80 Ammonia 36 H Total Creatine Kinase CK-MB (CK-2) Troponin I B-Natriuretic Peptide Total Protein 4.6 L Albumin 2.9 L Globulin 1.7 L Albumin/Globulin Ratio 1.7 Urine Color Urine Appearance Urine pH Ur Specific [place] Urine Protein Urine Glucose (UA) Urine Ketones Urine Blood Urine Nitrate Urine Bilirubin Urine Urobilinogen Urine Leukocytes Urine RBC Ur Squamous Epith Cells Urine Bacteria Hyaline Casts Urine Mucus Ur Culture Indicated? 06/24/16 06/24/16 06/24/16 03:40 04:10 06:25 WBC RBC Hgb Hct MCV MCH MCHC RDW Plt Count MPV Neut % (Auto) Lymph % (Auto) [place] % (Auto) Eos % (Auto) Baso % (Auto) Neut # (Auto) Lymph # (Auto) [place] # (Auto) Eos # (Auto) Baso # (Auto) Immature Gran % Nucleated RBC % Immature Gran # Nucleated RBCs # Platelet Estimate Hypochromasia Macrocytosis Morphology Comment ABG pH 7.395 ABG pCO2 32.4 L ABG pO2 147.0 H ABG HCO3 20.9 ABG Total CO2 18.1 L ABG O2 Saturation 99.6 ABG Base Excess -4.2 L FiO2 60.00 Sodium Potassium Chloride Carbon Dioxide Anion Gap BUN Creatinine GFR Calculation BUN/Creatinine Ratio Glucose POC Glucose 88 Calculated Osmolality Calcium Total Bilirubin AST ALT Alkaline Phosphatase Ammonia Total Creatine Kinase CK-MB (CK-2) Troponin I B-Natriuretic Peptide 491 H Total Protein Albumin Globulin Albumin/Globulin Ratio Urine Color Urine Appearance Urine pH Ur Specific [place] Urine Protein Urine Glucose (UA) Urine Ketones Urine Blood Urine Nitrate Urine Bilirubin Urine Urobilinogen Urine Leukocytes Urine RBC Ur Squamous Epith Cells Urine Bacteria Hyaline Casts Urine Mucus Ur Culture Indicated? 06/24/16 11:49 WBC RBC Hgb Hct MCV MCH MCHC RDW Plt Count MPV Neut % (Auto) Lymph % (Auto) [place] % (Auto) Eos % (Auto) Baso % (Auto) Neut # (Auto) Lymph # (Auto) [place] # (Auto) Eos # (Auto) Baso # (Auto) Immature Gran % Nucleated RBC % Immature Gran # Nucleated RBCs # Platelet Estimate Hypochromasia Macrocytosis Morphology Comment ABG pH ABG pCO2 ABG pO2 ABG HCO3 ABG Total CO2 ABG O2 Saturation ABG Base Excess FiO2 Sodium Potassium Chloride Carbon Dioxide Anion Gap BUN Creatinine GFR Calculation BUN/Creatinine Ratio Glucose POC Glucose 96 Calculated Osmolality Calcium Total Bilirubin AST ALT Alkaline Phosphatase Ammonia Total Creatine Kinase CK-MB (CK-2) Troponin I B-Natriuretic Peptide Total Protein Albumin Globulin Albumin/Globulin Ratio Urine Color Urine Appearance Urine pH Ur Specific [place] Urine Protein Urine Glucose (UA) Urine Ketones Urine Blood Urine Nitrate Urine Bilirubin Urine Urobilinogen Urine Leukocytes Urine RBC Ur Squamous Epith Cells Urine Bacteria Hyaline Casts Urine Mucus Ur Culture Indicated?
[2016-06-24] MEDS: FUROSEMIDE 40 MG/4 ML VIAL IV SCH ×2 (09:39→15:31)
[2016-06-24] MEDS: THIAMINE 200 MG/2 ML VIAL IV SCH (09:39)
[2016-06-24] MEDS: SOTALOL 80 MG TABLET PO SCH ×2 (09:40→21:34)
[2016-06-24] MEDS: MEGESTROL 400 MG/10 ML UDCUP PO SCH ×2 (09:40→21:42)
[2016-06-24] MEDS: DILTIAZEM 30 MG TABLET PO SCH ×2 (09:40→21:33)
[2016-06-24] MEDS: MIDODRINE 5 MG TABLET PO SCH ×3 (09:40→21:34)
[2016-06-24] MEDS: LACTULOSE 20 GM/30 ML UDCUP PO SCH ×2 (09:40→21:34)
[2016-06-24] MEDS: PANTOPRAZOLE 40 MG VIAL IV SCH (09:40)
[2016-06-24] MEDS: chlordiazePOXIDE 25 MG CAPSULE PO SCH ×3 (09:41→21:32)
[2016-06-24] MEDS: PHENYLEPHRINE DRIP 40 MG/250 ML PREMIX IV PRN (11:03)
[2016-06-24] MEDS: ENOXAPARIN 40 MG/0.4 ML SYRINGE SUBCUT SCH (14:02)
[2016-06-24] MEDS: NYSTATIN CREAM 15 GM TUBE TOP SCH ×2 (16:41→21:39)
[2016-06-24] MEDS: DESITIN 4OZ/NYSTATIN 15 GRAM MIXTURE PASTE TOP SCH ×2 (16:41→21:40)
[2016-06-24] MEDS: KETOCONAZOLE 2% SHAMPOO 120 ML BOTTLE TOP SCH (16:41)
[2016-06-25] MEDS: INSULIN REGULAR 100 UNIT/ML SUBCUT SCH ×4 (00:02→18:00)
[2016-06-25] MEDS: PIPERACILLIN/TAZOBACTAM 3,375 MG in SODIUM CHLORIDE 0.9% 100 ML IV SCH ×3 (00:04→16:00)
[2016-06-25] MEDS: FAMOTIDINE 20 MG/2 ML VIAL IV SCH (00:04)
[2016-06-25] MEDS: PHENYLEPHRINE DRIP 40 MG/250 ML PREMIX IV PRN ×3 (00:20→20:05)
[2016-06-25] MEDS: ALBUTEROL/IPRATROPIUM 3 ML NEB RESP TX SCH ×4 (00:47→19:34)
[2016-06-25 02:52] LABS: ABG Base Excess -3.4 MMOL/L (-2.5-2.5); ABG HCO3 21.6 MMOL/L (20-26); ABG Oxygen Saturation 98.4 % (95-100); ABG PCO2 30.8 MM HG (35-48); ABG PH 7.426 (7.35-7.45); ABG TCO2 18.5 MMOL/L (23-27); Allen Test Positive; Pt O2 Delivery Device Ventilator
[2016-06-25] MEDS: ALBUMIN 25% 25 GM in PREMIX 1 EACH IV SCH ×3 (03:43→19:47)
[2016-06-25 04:04] LABS: Basophils % 0.2 % (0.0-0.8); Eosinophils # 0.2 10*3/uL (0.0-0.87); Eosinophils % 1.5 % (0.00-10.9); Hemoglobin 9.1 GM/DL (14.0-18.0); Immature Granulocytes % 0.8 %; Lymphocytes # 0.8 10*3/uL (1.4-4.0); Lymphocytes % 6.8 % (21.2-54.2); Mean Corpuscular HGB Conc 32.5 GM/DL (32-36); Mean Corpuscular Hemoglobin 32 PG (27-34); Mean Corpuscular Volume 98.9 FL (87-102); Mean Platelet Volume 10.7 FL (9.6-12.0); Monocytes # 0.9 10*3/uL (0.11-0.8); Monocytes % 7.5 % (1.7-12.7); Neutrophils # 10.2 10*3/uL (1.4-7.4); Neutrophils % 83.2 % (38.7-73.9); Platelet Count 158 T/CUMM (130-400); Red Blood Count 2.83 MC/CUMM (3.8-5.5); Red Cell Distribution Width 18.2 % (9.3-17.3); White Blood Count 12.3 T/CUMM (4-12)
[2016-06-25 04:43] LABS: Calcium 7.6 MG/DL (8.5-10.1); Magnesium 0.9 MG/DL (1.8-2.4); Osmolality,Calculated 289.7 MOS/KG (273-304)
[2016-06-25] MEDS ORDERED: MAGNESIUM SULF RIDER 4 GM in PREMIX 1 EACH IV PRN (05:06)
[2016-06-25 05:26] LABS: Band Neutrophils 5 % (0-10); Eosinophils 3 % (0-10); Lymphocytes 14 % (20-55); Platelet Estimate Normal; Segmented Neutrophils 78 % (50-85); Total Cells Counted 100
[2016-06-25] MEDS: MAGNESIUM SULF RIDER 2 GM in PREMIX 1 EACH IV PRN ×2 (05:27→06:05)
[2016-06-25] MEDS: POTASSIUM CHLORIDE RIDER 20 MEQ in PREMIX 1 EACH IV PRN ×3 (05:28→11:15)
[2016-06-25] MEDS: PROPOFOL 1,000 MG/100 ML BOTTLE IV SCH ×2 (06:12→19:52)
--- NOTE | 2016-06-25 07:16 | EKG Report ---
Stationary ECG Study [facility] Test Date: 06/25/2016 7:16:25 AM Pat Name: ISAC AYON Department: Room: 108 Gender: M Office Professionals: RAMONA : 1955 Requested by: Carlos Childress Order Number: [id number] Reading MD: LINWOOD DREW Intervals [place] Rate: 62 P: -77 CT: 126 QRS: 0 QRSD: 3 T: -88 QT: 314 QTc: 319 Interpretive Statements ATIAL FLUTTER/TACHYCARDIA WITH ELECTRONIC VENTRICULAR PACEMAKER -- Electronically Signed On 06-28-16 12:11:49 CDT by LINWOOD DREW [email or web address]
[2016-06-25] MEDS: LEVOTHYROXINE 75 MCG TABLET PO SCH (07:17)
[2016-06-25] MEDS: POTASSIUM CHLORIDE RIDER 10 MEQ in PREMIX 1 EACH IV PRN ×2 (07:22→12:15)
--- NOTE | 2016-06-25 07:43 | XRay Report ---
XR chest 1V portable Indication: Shortness of breath Comparison: 24 June 2016 Findings: The heart and mediastinum are stable in size and configuration. Pacemaker device is unchanged in position. The lines and tubes are unchanged in position. The pulmonary vascularity is increased compared to previous exam. There is increasing basilar pulmonary density left greater than right lung infiltrates, effusions, pneumothorax or other abnormality is demonstrated. Impression: Increase in vascularity, could indicate worsening cardiac decompensation. Increasing basilar lung densities could indicate pneumonia and/or atelectasis. PROCEDURE INTERPRETED AT [facility] DEPARTMENT OF RADIOLOGY Final Report Signed by: Dr. Milind Maharaj
--- NOTE | 2016-06-25 07:52 | Cardiology Progress Note ---
<Risa Hannon E - Last Filed: 06/25/16 07:47> Assessment and Plan - Time spent with patient Time spent with patient: Less than 30 minutes (1) Atrial flutter Status: Acute Assessment and plan: He's had acute atrial dysrhythmias but I think his atrial flutter and rapid ventricular response is difficult to manage secondary to his underlying acute medical issues. Continue IV Cardizem and PO sotalol. He has been started on Lovenox 40 mg daily for DVT prophylaxis and strict protection. He has not been on chronic anticoagulation. Although his stools remain heme negative, he continues to have a low H&H. Current Visit: No (2) Paroxysmal atrial fibrillation Status: Chronic Assessment and plan: Currently in atrial flutter. He was previously on aspirin and Eliquis for stroke prevention. These are being held due to his profound anemia. He has required transfusion of 5 units PRBCs this admission, last transfusion on 2016. He has been started on Lovenox for DVT prophylaxis and stroke protection. Current Visit: Yes (3) CHF (congestive heart failure) Status: Acute Assessment and plan: Echocardiogram 06/16/16 revealed EF 60%, grade I/IV diastolic dysfunction, likely secondary to his hypoalbuminemia and other medical issues. Current Visit: No Qualifiers: Congestive heart failure type: systolic Congestive heart failure chronicity : acute on chronic Qualified Code(s): I50.23 - Acute on chronic systolic ( congestive) heart failure (4) Obstructive sleep apnea Problem details: refusing his mask Status: Chronic Assessment and plan: Noncompliant, refuses CPAP mask. Complicates his overall issues. Current Visit: Yes (5) Hypertension Status: Chronic Assessment and plan: Pressures have been up and down. Vasopressors were restarted due to hypotension. He continues to require IV Cardizem and propofol for sedation while on mechanical ventilation. Will continue to monitor. Current Visit: No (6) Alcoholic cirrhosis Status: Acute Assessment and plan: GI is following. Current Visit: Yes (7) Anemia Status: Acute Assessment and plan: GI is following. Upper endoscopy did not reveal culprit lesion. Per GI, the patient will need C-scope with timing based on clinical progress. Current Visit: Yes (8) Obesity Status: Chronic Current Visit: Yes (9) Alcohol abuse Status: Chronic Assessment and plan: Per Dr. Garcia's notes, the patient's would like for him to go to a treatment center when he is medically stable. Current Visit: Yes (10) Failure to thrive Status: Chronic Assessment and plan: This is secondary to multiple medical issues and problems. Current Visit: Yes Qualifiers: Failure to thrive age range: in adult Qualified Code(s): R62.7 - Adult failure to thrive Cardiology - PN: Subj Interval history: [employer] Sticker: Dr. Drake PCP: Dr. Reyes Mr. Tracy remains sedated and on the ventilator. He continues to require vasopressor support with phenylephrine. IV Cardizem continues but he remains in atrial flutter. He is also on sotalol. He has not been on anticoagulation. His H&H has been low but previous stools have been heme negative. There is some question as to whether or not he would benefit or at least be protected by low-dose Lovenox for DVT prophylaxis. That may also give him some stroke protection. At this time, cardioversion will not be pursued. We will continue with the current medical therapy. His prognosis is poor currently. Exam (Progress Note) - Constitutional Vitals: Period Temp Pulse Resp BP Sys/Mcbride Pulse Ox Last 24 Hr 98.0 F-100.1 F 60-120 16-32 77-133/28-84 98-100 Exam: General appearance: Orally intubated and sedated on ventilator. Obese. no acute distress. - Head Head exam: Present: normal inspection, normocephalic, atraumatic. Absent: hematoma, laceration - Eye Eye exam: Present: EOMI. Absent: conjunctival injection, nystagmus, periorbital swelling, scleral icterus, laceration to eyelids Pupils: Present: PERRL. Absent: constricted, dilated, fixed, irregular, unequal - ENT ENT exam: Present: Orally intubated, normal external ear exam. NG tube in place and clamped. - Neck Neck exam: Present: normal inspection. Absent: lymphadenopathy, meningismus, tenderness, thyromegaly - Respiratory Respiratory exam: Present: Mechanically ventilated breath sounds. Absent: accessory muscle use - Cardiovascular Cardiovascular exam: Present: Mildly irregular rate and rhythm, Tachycardia. Absent: carotid bruit, gallop, JVD, rubs, murmur - GI/Abdominal GI/Abdominal exam: Present: normal bowel sounds, soft. Absent: distended, firm , guarding, hernia, mass, tenderness, rebound. - Extremities Exam Extremities exam: Present: normal inspection, normal capillary refill. Upper extremity pulses 2+. Lower extremity pulses diminished. Trace bilateral lower extremity edema. Absent: calf tenderness - Back Exam Back exam: Present: Unable to examine due to habitus. Sedated on mechanical ventilator. - Neurological Exam Neurological exam: Present: Limited due to habitus (on ventilator). Arousable to verbal stimuli. No resting or essential tremor. - Psychiatric Psychiatric exam: Present: Unable to adequately assess due to patient being sedated and on mechanical ventilation. - Skin Skin exam: Present: normal color, warm, dry, intact. Absent: cyanosis, diaphoretic, rash, urticaria Result/EKG - Labs CBC & BMP: 06/25/16 03:55 06/25/16 03:55 Lab Results: I have reviewed the past 24 hour labs Labs: Laboratory Results - last 24 hr 06/24/16 06/24/16 06/24/16 11:49 17:53 23:56 WBC RBC Hgb Hct MCV MCH MCHC RDW Plt Count MPV Neut % (Auto) Lymph % (Auto) [place] % (Auto) Eos % (Auto) Baso % (Auto) Neut # (Auto) Lymph # (Auto) [place] # (Auto) Eos # (Auto) Baso # (Auto) Total Counted Immature Gran % Nucleated RBC % Immature Gran # Segmented Neutrophils Band Neutrophils Lymphocytes Eosinophils Nucleated RBCs # Platelet Estimate Pappenheimer Bodies ABG pH ABG pCO2 ABG pO2 ABG HCO3 ABG Total CO2 ABG O2 Saturation ABG Base Excess FiO2 Sodium Potassium Chloride Carbon Dioxide Anion Gap BUN Creatinine GFR Calculation BUN/Creatinine Ratio Glucose POC Glucose 96 135 H 139 H Calculated Osmolality Calcium Magnesium 06/25/16 06/25/16 06/25/16 02:45 03:55 03:55 WBC 12.3 H RBC 2.83 L Hgb 9.1 L Hct 28.0 L MCV 98.9 MCH 32 MCHC 32.5 RDW 18.2 H Plt Count 158 MPV 10.7 Neut % (Auto) 83.2 H Lymph % (Auto) 6.8 L [place] % (Auto) 7.5 Eos % (Auto) 1.5 Baso % (Auto) 0.2 Neut # (Auto) 10.2 H Lymph # (Auto) 0.8 L [place] # (Auto) 0.9 H Eos # (Auto) 0.2 Baso # (Auto) 0.0 Total Counted 100 Immature Gran % 0.8 Nucleated RBC % 0.0 Immature Gran # 0.10 Segmented Neutrophils 78 Band Neutrophils 5 Lymphocytes 14 L Eosinophils 3 Nucleated RBCs # 0.00 Platelet Estimate Normal Pappenheimer Bodies Clutch Mechanic ABG pH 7.426 ABG pCO2 30.8 L ABG pO2 100.0 H ABG HCO3 21.6 ABG Total CO2 18.5 L ABG O2 Saturation 98.4 ABG Base Excess -3.4 L FiO2 50.00 Sodium 145 Potassium 3.0 L Chloride 111 H Carbon Dioxide 21 Anion Gap 16.0 H BUN 13 Creatinine 1.20 GFR Calculation 87 BUN/Creatinine Ratio 10.00 Glucose 135 H POC Glucose Calculated Osmolality 289.7 Calcium 7.6 L Magnesium 0.9 L - EKG EKG results: interpreted by me (Atrial flutter) Quality Measures - VTE Contraindication to Pharmacological VTE Prophylaxis: Active Bleeding <Carlos Butcher - Last Filed: 06/26/16 07:12> Assessment and Plan (1) Atrial flutter with rapid ventricular response Status: Acute Current Visit: Yes (2) Hypertension Status: Chronic Current Visit: No (3) CHF (congestive heart failure) Status: Acute Current Visit: No Qualifiers: Congestive heart failure type: systolic Congestive heart failure chronicity : acute on chronic Qualified Code(s): I50.23 - Acute on chronic systolic ( congestive) heart failure (4) Failure to thrive Status: Chronic Current Visit: Yes Qualifiers: Failure to thrive age range: in adult Qualified Code(s): R62.7 - Adult failure to thrive (5) Paroxysmal atrial fibrillation Status: Chronic Current Visit: Yes (6) Obstructive sleep apnea Problem details: refusing his mask Status: Chronic Current Visit: Yes (7) Acute pancreatitis Status: Resolved Current Visit: Yes Qualifiers: Pancreatitis type: alcohol induced (8) Alcoholic cirrhosis Status: Acute Current Visit: Yes (9) Alcohol abuse Status: Chronic Current Visit: Yes (10) Hypotension Status: Chronic Current Visit: Yes Qualifiers: Hypotension type: orthostatic hypotension Qualified Code(s): I95.1 - Orthostatic hypotension Cardiology - PN: Subj Interval history: Patient personally examined and chart reviewed. Agree with assessment and plan. Exam (Progress Note) - Constitutional Vitals: Period Temp Pulse Resp BP Sys/Mcbride Pulse Ox Last 24 Hr 98.1 F-98.8 F 58-118 14-28 67-127/31-88 94-100 Result/EKG - Labs CBC & BMP: 06/26/16 05:20 06/26/16 05:20 Labs: Laboratory Results - last 24 hr 06/25/16 06/25/16 06/25/16 03:55 10:30 11:37 WBC RBC Hgb Hct MCV MCH MCHC RDW Plt Count MPV Neut % (Auto) Lymph % (Auto) [place] % (Auto) Eos % (Auto) Baso % (Auto) Neut # (Auto) Lymph # (Auto) [place] # (Auto) Eos # (Auto) Baso # (Auto) Immature Gran % Nucleated RBC % Immature Gran # Nucleated RBCs # Platelet Estimate Macrocytosis Morphology Comment ABG pH ABG pCO2 ABG pO2 ABG HCO3 ABG Total CO2 ABG O2 Saturation ABG Base Excess FiO2 Sodium Potassium 3.4 L Chloride Carbon Dioxide Anion Gap BUN Creatinine GFR Calculation BUN/Creatinine Ratio Glucose POC Glucose 132 H Calculated Osmolality Calcium Phosphorus 1.9 L Magnesium 0.9 L 1.9 Total Bilirubin Direct Bilirubin Indirect Bilirubin AST ALT Alkaline Phosphatase Total Protein Albumin Prealbumin 3.6 L Amylase Lipase 06/25/16 06/25/16 06/26/16 17:48 23:51 03:13 WBC RBC Hgb Hct MCV MCH MCHC RDW Plt Count MPV Neut % (Auto) Lymph % (Auto) [place] % (Auto) Eos % (Auto) Baso % (Auto) Neut # (Auto) Lymph # (Auto) [place] # (Auto) Eos # (Auto) Baso # (Auto) Immature Gran % Nucleated RBC % Immature Gran # Nucleated RBCs # Platelet Estimate Macrocytosis Morphology Comment ABG pH 7.528 H ABG pCO2 28.2 L ABG pO2 156.5 H ABG HCO3 22.9 ABG Total CO2 23.8 ABG O2 Saturation 99.2 ABG Base Excess 1.5 FiO2 50.00 Sodium Potassium Chloride Carbon Dioxide Anion Gap BUN Creatinine GFR Calculation BUN/Creatinine Ratio Glucose POC Glucose 116 H 108 H Calculated Osmolality Calcium Phosphorus Magnesium Total Bilirubin Direct Bilirubin Indirect Bilirubin AST ALT Alkaline Phosphatase Total Protein Albumin Prealbumin Amylase Lipase 06/26/16 06/26/16 06/26/16 05:20 05:20 05:20 WBC 10.7 RBC 2.98 L Hgb 9.4 L Hct 29.0 L MCV 97.3 MCH 32 MCHC 32.4 RDW 18.1 H Plt Count 146 MPV 10.9 Neut % (Auto) 77.6 H Lymph % (Auto) 9.0 L [place] % (Auto) 9.9 Eos % (Auto) 2.2 Baso % (Auto) 0.5 Neut # (Auto) 8.3 H Lymph # (Auto) 1.0 L [place] # (Auto) 1.1 H Eos # (Auto) 0.2 Baso # (Auto) 0.1 Immature Gran % 0.8 Nucleated RBC % 0.0 Immature Gran # 0.09 Nucleated RBCs # 0.00 Platelet Estimate Adequate Macrocytosis 1+ Morphology Comment ABG pH ABG pCO2 ABG pO2 ABG HCO3 ABG Total CO2 ABG O2 Saturation ABG Base Excess FiO2 Sodium 143 Potassium 3.2 L Chloride 108 H Carbon Dioxide 24 Anion Gap 14.2 BUN 16 Creatinine 1.10 GFR Calculation 96 BUN/Creatinine Ratio 14.00 Glucose 102 POC Glucose Calculated Osmolality 285.0 Calcium 8.3 L Phosphorus Magnesium 1.4 L Total Bilirubin 2.90 H Direct Bilirubin 1.90 H Indirect Bilirubin 1.0 AST 43 H ALT 16 Alkaline Phosphatase 83 Total Protein 5.4 L Albumin 3.5 Prealbumin Amylase 22 L Lipase 256.0
[2016-06-25] MEDS: FUROSEMIDE 40 MG/4 ML VIAL IV SCH ×2 (08:00→16:00)
[2016-06-25] MEDS: DESITIN 4OZ/NYSTATIN 15 GRAM MIXTURE PASTE TOP SCH ×2 (08:00→21:32)
--- NOTE | 2016-06-25 08:10 | Pulmonology Progress Note ---
Pulmonary - PN: Subj Interval history: Patient is a 60-year-old white man that is in very poor condition with obesity and chronic liver disease and heart disease. He was having more respiratory distress yesterday and had to be intubated. He does have bilateral infiltrates and relative hypoxemia. His chest x-ray certainly is consistent with some mild heart failure. He may also have some pneumonia. His PO2 is 100 on 50% oxygen. He has 1 out of 4 blood cultures growing gram-positive cocci. He is getting antibiotics. Will proceed with a therapeutic bronchoscopy today. Exam (Progress Note) - Constitutional Vitals: Period Temp Pulse Resp BP Sys/Mcbride Pulse Ox Last 24 Hr 98.0 F-100.1 F 60-120 16-32 77-133/28-84 98-100 Exam: General appearance: no distress (He is sedated and comfortable on the ventilator at present.) - Head Head exam: Present: normal inspection, normocephalic - Eye Eye exam: Present: EOMI. Absent: scleral icterus Pupils: Present: KARLEE - ENT ENT exam: Present: other (Patient has a very narrow hypopharynx) he has an ET tube in good position. - Neck Neck exam: Present: other (Patient does have a large neck). Absent: lymphadenopathy, thyromegaly - Respiratory Respiratory exam: Present: He has fairly good breath sounds bilaterally with mild rhonchi bilaterally. - Cardiovascular Cardiovascular exam: Present: irregular rhythm, tachycardia. Absent: gallop, systolic murmur - GI/Abdominal GI/Abdominal exam: Present: hypoactive bowel sounds, soft, other (Abdomen is large). Absent: organomegaly, tenderness - Extremities Exam Extremities exam: Absent: calf tenderness, edema - Neurological Exam Neurological exam: Present: altered (Patient is sedated now.) - Psychiatric Psychiatric exam: Present: He is sedated and calm on the ventilator. - Skin Skin exam: Present: warm, dry Results - Labs CBC & BMP: 06/25/16 03:55 06/25/16 03:55 Labs: The PO2 is 100 with a PCO2 of 30 and a pH of 7.42 - Diagnostic Findings Procedure: Chest x-ray: image reviewed by me, report reviewed by me (Chest x- ray shows bibasilar infiltrates.) Assessment and Plan (1) NICM (nonischemic cardiomyopathy) Problem details: improved EF per updated ECHO Status: Chronic Assessment and plan: The patient does have cardiomegaly and certainly looks like he may have some congestive heart failure. He had good urine output yesterday. Current Visit: Yes (2) Paroxysmal atrial fibrillation Status: Chronic Assessment and plan: The patient continues to have an irregular rhythm but his heart rate is better. Current Visit: Yes (3) Obstructive sleep apnea Problem details: refusing his mask Status: Chronic Assessment and plan: Patient is combative at times and will not use his CPAP. Now he is on the ventilator. Current Visit: Yes (4) Alcoholic cirrhosis Status: Acute Assessment and plan: Patient has a bilirubin of 2.2 and a slightly elevated ammonia level. He is stable on the ventilator at present. He is requiring sedatives. Current Visit: Yes (5) Aspiration pneumonitis Status: Acute Assessment and plan: Patient now has bibasilar infiltrates but is stable on the ventilator. Will proceed with a therapeutic bronchoscopy and clear airways. Current Visit: Yes
[2016-06-25 08:12] LABS: Magnesium 0.9 MG/DL (1.8-2.4); Phosphorous 1.9 MG/DL (2.5-4.9); Prealbumin 3.6 MG/DL (20-40)
--- NOTE | 2016-06-25 08:46 | Operative Note ---
Date of procedure: 06/25/16 Pre-op diagnosis: Respiratory failure with bibasilar infiltrate Post-op diagnosis: same Procedure: The patient is a 60-year-old on the ventilator with possible recent aspiration pneumonia. He still has bibasilar infiltrates. Bronchoscopy done to clear airways. Procedure: Patient is sedated on the ventilator in the ICU. The fiberoptic bronchoscope was passed through the ET tube into the airways. The bronchopulmonary segments were identified and specimens obtained. Findings: The ET tube is in good position in the trachea. The main bronchi are open. The right upper lobe, right middle lobe, right lower lobe are all open. The left upper lobe, lingula, left lower lobe are open. There is some mild bronchitis present. There are no endobronchial lesions seen. The secretions were frothy and not very purulent looking or very thick. They were washed and cleared and sent for culture. He tolerated the procedure well without problems. Impression: Bibasilar pneumonia with fairly unremarkable airways. Plan: We will continue ventilatory support. Anesthesia: conscious sedation Surgeon / Physician: Faustino Garcia Estimated blood loss: none Specimens: other (Washings were sent for culture) Condition: stable Disposition: ICU Results - Labs CBC & BMP: 06/25/16 03:55 06/25/16 03:55 Discharge Plan - Discharge Medications No Action Apixaban [Eliquis] 5 mg PO BID #60 tablet Aspirin Chew Tab 81 mg PO DAILY tablet Losartan [Cozaar] 25 mg PO DAILY #30 tablet Magnesium Oxide 800 mg PO BID #60 tablet Nitroglycerin Sl Tab [Nitrostat] 0.4 mg SL Q5M PRN #30 tablet PRN Reason: Chest Pain Sotalol [Betapace] 80 mg PO BID #60 tablet Spironolactone [Aldactone] 50 mg PO DAILY #30 tablet Diltiazem Cd Cap [Cardizem CD] 180 mg PO DAILY #30 capsule Furosemide Tab [Lasix Tab] 40 mg PO BID DIURETIC #60 tablet Levothyroxine Tab [Synthroid Tab] 75 mcg PO DAILY@0700 Furosemide [Lasix] 40 mg PO BID Potassium Chloride 20 meq PO BID - Follow Up or Referral - Forms/Instructions
[2016-06-25] MEDS: PANTOPRAZOLE 40 MG VIAL IV SCH (09:25)
[2016-06-25] MEDS: MEGESTROL 400 MG/10 ML UDCUP PO SCH ×2 (09:30→21:32)
[2016-06-25] MEDS: MIDODRINE 5 MG TABLET PO SCH ×3 (09:30→21:31)
[2016-06-25] MEDS: SOTALOL 80 MG TABLET PO SCH ×2 (09:30→21:31)
[2016-06-25] MEDS: NYSTATIN CREAM 15 GM TUBE TOP SCH ×2 (09:30→21:32)
[2016-06-25] MEDS: DILTIAZEM 30 MG TABLET PO SCH ×2 (09:30→21:39)
[2016-06-25] MEDS: chlordiazePOXIDE 25 MG CAPSULE PO SCH ×3 (09:30→21:31)
[2016-06-25] MEDS: LACTULOSE 20 GM/30 ML UDCUP PO SCH ×2 (09:30→21:32)
[2016-06-25] MEDS: THIAMINE 200 MG/2 ML VIAL IV SCH (09:35)
--- NOTE | 2016-06-25 10:40 | Cardiology Progress Note ---
Assessment and Plan (1) Atrial flutter with rapid ventricular response Status: Acute Assessment and plan: At present this is managed with medications. He still is in atrial flutter. He is on low-dose Lovenox. He is also on his sotalol. We will continue to monitor this. We will cardiovert if hemodynamically becomes appropriate but I don't think ischemic changes pressures since his blood pressures were stable previously in atrial flutter. Current Visit: Yes (2) Hypertension Status: Chronic Assessment and plan: Not issue at this time on his present medical regimen. Current Visit: No (3) CHF (congestive heart failure) Status: Acute Assessment and plan: LV function is normal with minimal diastolic dysfunction. Any heart failure is probably from volume issues and his other underlying problems. Current Visit: No Qualifiers: Congestive heart failure type: systolic Congestive heart failure chronicity : acute on chronic Qualified Code(s): I50.23 - Acute on chronic systolic ( congestive) heart failure (4) Failure to thrive Status: Chronic Assessment and plan: This is secondary to multiple medical issues and problems. Current Visit: Yes Qualifiers: Failure to thrive age range: in adult Qualified Code(s): R62.7 - Adult failure to thrive (5) Paroxysmal atrial fibrillation Status: Chronic Assessment and plan: Presently in atrial flutter. Current Visit: Yes (6) Obstructive sleep apnea Problem details: refusing his mask Status: Chronic Assessment and plan: Complications overall issues. Current Visit: Yes (7) Acute pancreatitis Status: Resolved Current Visit: Yes Qualifiers: Pancreatitis type: alcohol induced (8) Alcoholic cirrhosis Status: Acute Current Visit: Yes (9) Alcohol abuse Status: Chronic Current Visit: Yes (10) Hypotension Status: Acute Assessment and plan: This is probably secondary to some of his medications but may also be related to his underlying medical issues and even the possibility of infectious process. This is being followed by the primary service and pulmonary as well. He is being supported by pressor agents. Current Visit: Yes Qualifiers: Hypotension type: orthostatic hypotension Qualified Code(s): I95.1 - Orthostatic hypotension Cardiology - PN: Subj Interval history: From a cardiac standpoint Mr. Rhoades and remains in atrial flutter but his ventricular response is managed on IV diltiazem. Remains on propofol with the ventilator. His blood pressures are low requiring pressor agents. Certainly he is low blood pressure can be exacerbated by propofol as well as diltiazem. His ejection fraction is been 60% with probably some mild diastolic dysfunction. Structurally and functionally [place] no significant issue to account for his problems. He continues on sotalol. He has not been on any anticoagulant except for low- dose DVT prophylaxis Lovenox. His I&O's continue to reveal a positive fluid balance. His laboratory reveals continued anemia slightly elevated white count. His potassium and magnesium are low and he is on protocol. Generally he is overall clinical situation is been poor with overall poor prognosis. He is probably slow to wean off the ventilator and may actually long -term require LTAC or other facility. Exam (Progress Note) - Constitutional Vitals: Period Temp Pulse Resp BP Sys/Mcbride Pulse Ox Last 24 Hr 98.0 F-100.1 F 60-120 16-25 67-133/28-84 99-100 Exam: General appearance: Obese, on propofol and ventilator. HEENT exam: normal inspection, atraumatic, he has oral intubation. Neck exam: normal inspection no JVD. No carotid bruit. Trachea is in midline Respiratory/lungs exam: clear to auscultation anteriorly and bilaterally with good air movement. He is on ventilator. Cardiovascular exam: Rates are stable with a rhythm the low irregular with soft systolic murmur. Chest wall exam: nontender GI/Abdominal exam: Obese with bowel sounds, soft, nontender. Extremeties/musculoskeletal: normal inspection without significant edema and no cyanosis. Neurological exam: Patient is sedated on propofol and on ventilator. Psychiatric exam: Sedated on propofol Skin exam: warm Result/EKG - Labs CBC & BMP: 06/25/16 03:55 06/25/16 03:55 Labs: Laboratory Results - last 24 hr 06/24/16 06/24/16 06/24/16 11:49 17:53 23:56 WBC RBC Hgb Hct MCV MCH MCHC RDW Plt Count MPV Neut % (Auto) Lymph % (Auto) [place] % (Auto) Eos % (Auto) Baso % (Auto) Neut # (Auto) Lymph # (Auto) [place] # (Auto) Eos # (Auto) Baso # (Auto) Total Counted Immature Gran % Nucleated RBC % Immature Gran # Segmented Neutrophils Band Neutrophils Lymphocytes Eosinophils Nucleated RBCs # Platelet Estimate Pappenheimer Bodies ABG pH ABG pCO2 ABG pO2 ABG HCO3 ABG Total CO2 ABG O2 Saturation ABG Base Excess FiO2 Sodium Potassium Chloride Carbon Dioxide Anion Gap BUN Creatinine GFR Calculation BUN/Creatinine Ratio Glucose POC Glucose 96 135 H 139 H Calculated Osmolality Calcium Phosphorus Magnesium Prealbumin 06/25/16 06/25/16 06/25/16 02:45 03:55 03:55 WBC 12.3 H RBC 2.83 L Hgb 9.1 L Hct 28.0 L MCV 98.9 MCH 32 MCHC 32.5 RDW 18.2 H Plt Count 158 MPV 10.7 Neut % (Auto) 83.2 H Lymph % (Auto) 6.8 L [place] % (Auto) 7.5 Eos % (Auto) 1.5 Baso % (Auto) 0.2 Neut # (Auto) 10.2 H Lymph # (Auto) 0.8 L [place] # (Auto) 0.9 H Eos # (Auto) 0.2 Baso # (Auto) 0.0 Total Counted 100 Immature Gran % 0.8 Nucleated RBC % 0.0 Immature Gran # 0.10 Segmented Neutrophils 78 Band Neutrophils 5 Lymphocytes 14 L Eosinophils 3 Nucleated RBCs # 0.00 Platelet Estimate Normal Pappenheimer Bodies Assembler Lay Ups ABG pH 7.426 ABG pCO2 30.8 L ABG pO2 100.0 H ABG HCO3 21.6 ABG Total CO2 18.5 L ABG O2 Saturation 98.4 ABG Base Excess -3.4 L FiO2 50.00 Sodium Potassium Chloride Carbon Dioxide Anion Gap BUN Creatinine GFR Calculation BUN/Creatinine Ratio Glucose POC Glucose Calculated Osmolality Calcium Phosphorus 1.9 L Magnesium 0.9 L Prealbumin 3.6 L 06/25/16 03:55 WBC RBC Hgb Hct MCV MCH MCHC RDW Plt Count MPV Neut % (Auto) Lymph % (Auto) [place] % (Auto) Eos % (Auto) Baso % (Auto) Neut # (Auto) Lymph # (Auto) [place] # (Auto) Eos # (Auto) Baso # (Auto) Total Counted Immature Gran % Nucleated RBC % Immature Gran # Segmented Neutrophils Band Neutrophils Lymphocytes Eosinophils Nucleated RBCs # Platelet Estimate Pappenheimer Bodies ABG pH ABG pCO2 ABG pO2 ABG HCO3 ABG Total CO2 ABG O2 Saturation ABG Base Excess FiO2 Sodium 145 Potassium 3.0 L Chloride 111 H Carbon Dioxide 21 Anion Gap 16.0 H BUN 13 Creatinine 1.20 GFR Calculation 87 BUN/Creatinine Ratio 10.00 Glucose 135 H POC Glucose Calculated Osmolality 289.7 Calcium 7.6 L Phosphorus Magnesium 0.9 L Prealbumin - Impressions Impressions: Telemetry with atrial flutter with management ventricular response. Quality Measures - VTE Contraindication to Pharmacological VTE Prophylaxis: Active Bleeding
[2016-06-25 11:00] LABS: Magnesium 1.9 MG/DL (1.8-2.4); Potassium 3.4 MMOL/L (3.5-5.1)
[2016-06-25] MEDS: ENOXAPARIN 40 MG/0.4 ML SYRINGE SUBCUT SCH (14:00)
--- NOTE | 2016-06-25 15:00 | Internal Med Progress Note ---
Assessment and Plan (1) Alcohol abuse Status: Chronic Current Visit: Yes (2) Ascites Status: Chronic Current Visit: Yes Qualifiers: Ascites type: due to alcoholic cirrhosis Qualified Code(s): K70.31 - Alcoholic cirrhosis of liver with ascites (3) Elevated liver enzymes Status: Chronic Current Visit: Yes (4) Failure to thrive Status: Chronic Current Visit: Yes Qualifiers: Failure to thrive age range: in adult Qualified Code(s): R62.7 - Adult failure to thrive (5) Hypotension Status: Chronic Current Visit: Yes Qualifiers: Hypotension type: orthostatic hypotension Qualified Code(s): I95.1 - Orthostatic hypotension (6) NICM (nonischemic cardiomyopathy) Problem details: improved EF per updated ECHO Status: Chronic Current Visit : Yes (7) Obstructive sleep apnea Problem details: refusing his mask Status: Chronic Current Visit: Yes Internal Medicine - PN: Subj Interval history: Mr. Tracy is a 60 year old male patient of Dr. Yair Reyes with history of dilated cardiomyopathy with EF 25%, diastolic dysfunction, sinus tachy debra syndrome with pacemaker placement, DM, liver cirrhosis, alcoholism, hypothyroidism, paroxysmal atrial fibrillation, who presented to ER with profound and worsening weakness. He was found to have pancreatitis, liver failure, and possibly hepatorenal syndrome. He is in renal failure. He reported to ER that he has not been eating/drinking over several days, except for drinking alcohol. He admits to alcoholism as reported by ER. June 25, he is on ventilator support, requiring tube feedings. Still tachycardic. Exam (Progress Note) - Constitutional Vitals: Period Temp Pulse Resp BP Sys/Mcbride Pulse Ox Last 24 Hr 98.0 F-99.0 F 60-120 16-23 67-133/28-84 94-100 Exam: General appearance: no acute distress - Respiratory Respiratory exam: Present: clear to auscultation bilaterally - Cardiovascular Cardiovascular exam: Present: tachycardia - GI/Abdominal GI/Abdominal exam: Present: distended - Extremities Exam Extremities exam: Absent: edema - Neurological Exam Neurological exam: Present: somnolent - Psychiatric Psychiatric exam: Present: depressed, flat affect - Skin Skin exam: Present: warm and dry Vitals reviewed. Results - Labs CBC & BMP: 06/25/16 03:55 06/25/16 10:30 - EKG EKG shows: tachycardia - Diagnostic Findings Procedure: Chest x-ray: report reviewed by me Quality Measures - VTE Contraindication to Pharmacological VTE Prophylaxis: Active Bleeding
[2016-06-25] MEDS: METOPROLOL TARTRATE 5 MG/5 ML VIAL IV PRN (17:30)
[2016-06-25] MEDS: KETOCONAZOLE 2% SHAMPOO 120 ML BOTTLE TOP SCH (21:35)
[2016-06-26] MEDS: INSULIN REGULAR 100 UNIT/ML SUBCUT SCH ×4 (00:04→17:45)
[2016-06-26] MEDS: FAMOTIDINE 20 MG/2 ML VIAL IV SCH (00:05)
[2016-06-26] MEDS: PIPERACILLIN/TAZOBACTAM 3,375 MG in SODIUM CHLORIDE 0.9% 100 ML IV SCH ×3 (00:08→16:20)
[2016-06-26] MEDS: ALBUTEROL/IPRATROPIUM 3 ML NEB RESP TX SCH ×4 (00:32→19:38)
[2016-06-26 03:24] LABS: Allen Test Positive; Pt O2 Delivery Device Ventilator
[2016-06-26 03:26] LABS: ABG Base Excess 1.5 MMOL/L (-2.5-2.5); ABG HCO3 22.9 MMOL/L (20-26); ABG Oxygen Saturation 99.2 % (95-100); ABG PCO2 28.2 MM HG (35-48); ABG PH 7.528 (7.35-7.45); ABG PO2 156.5 MM HG (80-95); ABG TCO2 23.8 MMOL/L (23-27)
[2016-06-26] MEDS: ALBUMIN 25% 25 GM in PREMIX 1 EACH IV SCH ×3 (04:24→20:56)
[2016-06-26] MEDS: PHENYLEPHRINE DRIP 40 MG/250 ML PREMIX IV PRN ×2 (04:33→14:45)
[2016-06-26] MEDS: PROPOFOL 1,000 MG/100 ML BOTTLE IV SCH ×2 (04:55→21:31)
[2016-06-26 05:37] LABS: Basophils # 0.1 10*3/uL (0.0-0.2); Basophils % 0.5 % (0.0-0.8); Eosinophils # 0.2 10*3/uL (0.0-0.87); Eosinophils % 2.2 % (0.00-10.9); Hemoglobin 9.4 GM/DL (14.0-18.0); Immature Granulocytes % 0.8 %; Immature Granulocytes Absolute 0.09 #; Mean Corpuscular HGB Conc 32.4 GM/DL (32-36); Mean Corpuscular Hemoglobin 32 PG (27-34); Mean Corpuscular Volume 97.3 FL (87-102); Mean Platelet Volume 10.9 FL (9.6-12.0); Monocytes # 1.1 10*3/uL (0.11-0.8); Monocytes % 9.9 % (1.7-12.7); Neutrophils # 8.3 10*3/uL (1.4-7.4); Neutrophils % 77.6 % (38.7-73.9); Platelet Count 146 T/CUMM (130-400); Red Blood Count 2.98 MC/CUMM (3.8-5.5); Red Cell Distribution Width 18.1 % (9.3-17.3); White Blood Count 10.7 T/CUMM (4-12)
[2016-06-26 06:04] LABS: Macrocytosis 1+
[2016-06-26 06:05] LABS: Platelet Estimate Adequate
[2016-06-26 06:09] LABS: Calcium 8.3 MG/DL (8.5-10.1); Magnesium 1.4 MG/DL (1.8-2.4); Potassium 3.2 MMOL/L (3.5-5.1)
[2016-06-26 06:57] LABS: Albumin 3.5 G/DL (3.4-5.0); Bilirubin,Direct 1.9 MG/DL (0.0-0.20); Bilirubin,Total 2.9 MG/DL (0.2-1.0); Total Protein 5.4 G/DL (6.4-8.3)
--- NOTE | 2016-06-26 07:09 | Family Practice Progress Note ---
Family Practice - PN: Subj Interval history: Patient seen this morning. Still ventilated. ABGs revealed a PO2 of 156 CO2 28 with a 7.52 pH. Tolerating the vent well is arousable. Is not tolerating tube feedings, significant residual at this time. Bowel sounds are very hypoactive. We are going to repeat an amylase and lipase this morning. No changes overall, appreciate pulmonary assistance Exam (Progress Note) - Constitutional Vitals: Period Temp Pulse Resp BP Sys/Mcbride Pulse Ox Last 24 Hr 98.1 F-98.8 F 58-118 14-28 67-125/31-86 94-100 Exam: Remains on ventilator NG tube is in place at this time. Patient is arousable Cardiovascular 1/6 systolic ejection murmur. Heart rate goes up requiring Cardizem periodically. Lungs few rales and mild diffuse rhonchi. Abdomen soft nondistended, NG tube in place Extremities some mild edema. Areas of skin fragility. Results - Labs CBC & BMP: 06/26/16 05:20 06/26/16 05:20 Quality Measures - VTE Contraindication to Pharmacological VTE Prophylaxis: Active Bleeding
--- NOTE | 2016-06-26 07:38 | EKG Report ---
Stationary ECG Study [facility] Test Date: 06/26/2016 7:38:14 AM Pat Name: ISAC AYON Department: Room: 108 Gender: M [employer] Supervisor: GRAYSON : 1955 Requested by: Carlos Childress Order Number: [id number] Reading MD: LINWOOD DREW Intervals [place] Rate: 79 P: 999 NH: 0 QRS: 12 QRSD: 100 T: -19 QT: 429 QTc: 464 Interpretive Statements ATRIAL FLUTTER/TACHYCARDIA WITH ABERRANT CONDUCTION OR VENTRICULAR PREMATURE COMPLEXES LOW QRS VOLTAGE PATTERN CONSISTENT WITH PULMONARY DISEASE ST DEVIATION AND MODERATE T-WAVE ABNORMALITY, CONSIDER ANTERIOR ISCHEMIA Electronically Signed On 06-28-16 12:31:08 CDT by LINWOOD DREW [email or web address]
[2016-06-26] MEDS: DESITIN 4OZ/NYSTATIN 15 GRAM MIXTURE PASTE TOP SCH ×2 (08:00→21:30)
[2016-06-26] MEDS: FUROSEMIDE 40 MG/4 ML VIAL IV SCH ×2 (08:00→16:15)
--- NOTE | 2016-06-26 08:29 | XRay Report ---
History: Patient on ventilator Date: 06/26/2016 Study: Chest x-ray AP portable Comparison exam: 06/25/2016 The endotracheal tube, nasogastric tube, and right PICC line remain in generous satisfactory position. A left subclavian multiple lead pacemaker device is unchanged. There is continued cardiomegaly. The mediastinal contours are similar. There is patchy and hazy edema/infiltrate in the lower lungs bilaterally as before, the same or only minimally improved. There is at least mild bilateral pleural effusion. There is moderate patient rotation to left. Osseous structures are unchanged. Impression: Continued bibasilar pulmonary edema/infiltrate, the same or only slightly improved. Grossly unchanged otherwise PROCEDURE INTERPRETED AT [facility] DEPARTMENT OF RADIOLOGY Final Report Signed by: Dr. Susan Ray
[2016-06-26] MEDS: SOTALOL 80 MG TABLET PO SCH ×2 (09:00→21:29)
[2016-06-26] MEDS: DILTIAZEM 30 MG TABLET PO SCH ×2 (09:00→21:29)
[2016-06-26] MEDS: chlordiazePOXIDE 25 MG CAPSULE PO SCH ×3 (09:00→21:28)
[2016-06-26] MEDS: LACTULOSE 20 GM/30 ML UDCUP PO SCH ×2 (09:00→21:30)
[2016-06-26] MEDS: MIDODRINE 5 MG TABLET PO SCH ×3 (09:00→21:29)
[2016-06-26] MEDS: MEGESTROL 400 MG/10 ML UDCUP PO SCH ×2 (09:00→21:30)
[2016-06-26] MEDS: THIAMINE 200 MG/2 ML VIAL IV SCH (09:00)
[2016-06-26] MEDS: PANTOPRAZOLE 40 MG VIAL IV SCH (09:02)
--- NOTE | 2016-06-26 09:10 | Pulmonology Progress Note ---
Pulmonary - PN: Subj Interval history: 60y/o M with multiple medical problems intubated for respiratory distress, likely due to heart failure. No acute events overnight. Doing well on vent. CXR unchanged this AM. Blood cultures growing GPC. Phenylephrine dose decreasing. Exam (Progress Note) - Constitutional Vitals: Period Temp Pulse Resp BP Sys/Mcbride Pulse Ox Last 24 Hr 98.1 F-98.8 F 58-118 14-28 74-127/40-88 98-100 General appearance: normal weight, no acute distress - Head Head exam: Present: normal inspection, normocephalic - Eye Eye exam: Present: EOMI Pupils: Present: KARLEE - ENT ENT exam: Present: normal exam - Neck Neck exam: Present: normal inspection - Respiratory Respiratory exam: Present: rhonchi (mild b/l). Absent: accessory muscle use - Cardiovascular Cardiovascular exam: Present: irregular rhythm, tachycardia - GI/Abdominal GI/Abdominal exam: Present: normal bowel sounds, soft. Absent: firm, guarding - Extremities Exam Extremities exam: Present: normal inspection. Absent: edema - Neurological Exam Neurological exam: Present: alert - Skin Skin exam: Present: warm, dry Results - Labs CBC & BMP: 06/26/16 05:20 06/26/16 05:20 - EKG EKG results: WNL - Diagnostic Findings Procedure: Chest x-ray: image reviewed by me (unchanged, pulmonary edema & effusions) Assessment and Plan (1) NICM (nonischemic cardiomyopathy) Problem details: improved EF per updated ECHO Status: Chronic Assessment and plan: Respiratory failure 2/2 CHF. Improved this AM with decreasing vent requirements. Continue to diurese. Current Visit: Yes (2) Atrial flutter with rapid ventricular response Status: Acute Assessment and plan: Worsened control this AM, possibly electrolyte driven. Replete lytes and, if no improvement, consider alternate thuan blocking strategy per Cardiology. Hemodynamically stable, no indication for cardioversion. Current Visit: Yes (3) Respiratory failure Status: Acute Assessment and plan: Hypoxic requiring intubation, likely 2/2 volume overload. Will adjust vent settings today for respiratory alkalosis and perform CPAP trial. Do not anticipate extubation today, but possibly soon. New vent settings: AC/VC VT 550 , RR 16, PEEP 5, FiO2 50%. Current Visit: Yes (4) Blood bacterial culture positive Status: Acute Assessment and plan: 1 of 4 blood cultures positive for GPC in clusters, possibly contaminant. Ensure repeat cultures are pending & continue current antibiotics. If decompensation, add vancomycin for coverage of MRSA. Current Visit: Yes (5) Hypokalemia Status: Acute Assessment and plan: Replete K & Mg per protocol. Current Visit: Yes
[2016-06-26] MEDS: NYSTATIN CREAM 15 GM TUBE TOP SCH ×2 (09:15→21:30)
[2016-06-26] MEDS: LEVOTHYROXINE 75 MCG TABLET PO SCH (09:20)
--- NOTE | 2016-06-26 09:49 | Cardiology Progress Note ---
Assessment and Plan (1) Atrial flutter with rapid ventricular response Status: Acute Assessment and plan: At present this is managed with medications. He still is in atrial flutter. He is on low-dose Lovenox. He is also on his sotalol. We will continue to monitor this. Is some pallor cardioversion may be appropriate. I don't think this is though is causing his issues. He had been off his sotalol for a few days and wasn't allowing this levels come back up. I think the chances are keeping him in sinus rhythm with be better once he is acute issues are better. Current Visit: Yes (2) Hypertension Status: Chronic Assessment and plan: Not issue at this time on his present medical regimen. Current Visit: No (3) CHF (congestive heart failure) Status: Acute Assessment and plan: LV function is normal with minimal diastolic dysfunction. Any heart failure is probably from volume issues and his other underlying problems. Current Visit: No Qualifiers: Congestive heart failure type: systolic Congestive heart failure chronicity : acute on chronic Qualified Code(s): I50.23 - Acute on chronic systolic ( congestive) heart failure (4) Failure to thrive Status: Chronic Assessment and plan: This is secondary to multiple medical issues and problems. Current Visit: Yes Qualifiers: Failure to thrive age range: in adult Qualified Code(s): R62.7 - Adult failure to thrive (5) Paroxysmal atrial fibrillation Status: Chronic Assessment and plan: Presently in atrial flutter. Current Visit: Yes (6) Obstructive sleep apnea Problem details: refusing his mask Status: Chronic Assessment and plan: Complications overall issues. Current Visit: Yes (7) Acute pancreatitis Status: Resolved Current Visit: Yes Qualifiers: Pancreatitis type: alcohol induced (8) Alcoholic cirrhosis Status: Acute Current Visit: Yes (9) Alcohol abuse Status: Chronic Current Visit: Yes (10) Hypotension Status: Chronic Assessment and plan: This is probably secondary to some of his medications but may also be related to his underlying medical issues and even the possibility of infectious process. This is being followed by the primary service and pulmonary as well. He is being supported by pressor agents. Current Visit: Yes Qualifiers: Hypotension type: orthostatic hypotension Qualified Code(s): I95.1 - Orthostatic hypotension Cardiology - PN: Subj Interval history: Patient's chart reviewed and patient examined. Remains of the later propofol. His rhythm still atrial flutter and controlled with his IV diltiazem. Blood pressure is fairly stable. Overall heart rate is stable. He's had an uneventful 24 hours with cardiac standpoint. His potassium is low but this is being replaced. His renal function is stable. His magnesium level low but being replaced on protocol. His I&O's reveal negative fluid balance yesterday and thus far today. Exam (Progress Note) - Constitutional Vitals: Period Temp Pulse Resp BP Sys/Mcbride Pulse Ox Last 24 Hr 97.1 F-98.8 F 58-118 14-28 77-127/40-88 98-100 Exam: General appearance: Obese, on propofol and ventilator. HEENT exam: normal inspection, atraumatic, he has oral intubation. Neck exam: normal inspection no JVD. No carotid bruit. Trachea is in midline Respiratory/lungs exam: clear to auscultation anteriorly and bilaterally with good air movement. He is on ventilator. Cardiovascular exam: Rates are stable with a rhythm the low irregular with soft systolic murmur. Chest wall exam: nontender GI/Abdominal exam: Obese with bowel sounds, soft, nontender. Extremeties/musculoskeletal: normal inspection without significant edema and no cyanosis. Neurological exam: Patient is sedated on propofol and on ventilator. Psychiatric exam: Sedated on propofol Skin exam: warm Result/EKG - Labs CBC & BMP: 06/26/16 05:20 06/26/16 05:20 Lab Results: I have reviewed the past 24 hour labs Labs: Laboratory Results - last 24 hr 06/25/16 06/25/16 06/25/16 10:30 11:37 17:48 WBC RBC Hgb Hct MCV MCH MCHC RDW Plt Count MPV Neut % (Auto) Lymph % (Auto) [place] % (Auto) Eos % (Auto) Baso % (Auto) Neut # (Auto) Lymph # (Auto) [place] # (Auto) Eos # (Auto) Baso # (Auto) Immature Gran % Nucleated RBC % Immature Gran # Nucleated RBCs # Platelet Estimate Macrocytosis Morphology Comment ABG pH ABG pCO2 ABG pO2 ABG HCO3 ABG Total CO2 ABG O2 Saturation ABG Base Excess FiO2 Sodium Potassium 3.4 L Chloride Carbon Dioxide Anion Gap BUN Creatinine GFR Calculation BUN/Creatinine Ratio Glucose POC Glucose 132 H 116 H Calculated Osmolality Calcium Magnesium 1.9 Total Bilirubin Direct Bilirubin Indirect Bilirubin AST ALT Alkaline Phosphatase Total Protein Albumin Amylase Lipase 06/25/16 06/26/16 06/26/16 23:51 03:13 05:20 WBC 10.7 RBC 2.98 L Hgb 9.4 L Hct 29.0 L MCV 97.3 MCH 32 MCHC 32.4 RDW 18.1 H Plt Count 146 MPV 10.9 Neut % (Auto) 77.6 H Lymph % (Auto) 9.0 L [place] % (Auto) 9.9 Eos % (Auto) 2.2 Baso % (Auto) 0.5 Neut # (Auto) 8.3 H Lymph # (Auto) 1.0 L [place] # (Auto) 1.1 H Eos # (Auto) 0.2 Baso # (Auto) 0.1 Immature Gran % 0.8 Nucleated RBC % 0.0 Immature Gran # 0.09 Nucleated RBCs # 0.00 Platelet Estimate Adequate Macrocytosis 1+ Morphology Comment ABG pH 7.528 H ABG pCO2 28.2 L ABG pO2 156.5 H ABG HCO3 22.9 ABG Total CO2 23.8 ABG O2 Saturation 99.2 ABG Base Excess 1.5 FiO2 50.00 Sodium Potassium Chloride Carbon Dioxide Anion Gap BUN Creatinine GFR Calculation BUN/Creatinine Ratio Glucose POC Glucose 108 H Calculated Osmolality Calcium Magnesium Total Bilirubin Direct Bilirubin Indirect Bilirubin AST ALT Alkaline Phosphatase Total Protein Albumin Amylase Lipase 06/26/16 06/26/16 06/26/16 05:20 05:20 05:59 WBC RBC Hgb Hct MCV MCH MCHC RDW Plt Count MPV Neut % (Auto) Lymph % (Auto) [place] % (Auto) Eos % (Auto) Baso % (Auto) Neut # (Auto) Lymph # (Auto) [place] # (Auto) Eos # (Auto) Baso # (Auto) Immature Gran % Nucleated RBC % Immature Gran # Nucleated RBCs # Platelet Estimate Macrocytosis Morphology Comment ABG pH ABG pCO2 ABG pO2 ABG HCO3 ABG Total CO2 ABG O2 Saturation ABG Base Excess FiO2 Sodium 143 Potassium 3.2 L Chloride 108 H Carbon Dioxide 24 Anion Gap 14.2 BUN 16 Creatinine 1.10 GFR Calculation 96 BUN/Creatinine Ratio 14.00 Glucose 102 POC Glucose 91 Calculated Osmolality 285.0 Calcium 8.3 L Magnesium 1.4 L Total Bilirubin 2.90 H Direct Bilirubin 1.90 H Indirect Bilirubin 1.0 AST 43 H ALT 16 Alkaline Phosphatase 83 Total Protein 5.4 L Albumin 3.5 Amylase 22 L Lipase 256.0 - Impressions Impressions: Telemetry with atrial flutter with variable ventricular response but overall fairly well managed and controlled. Quality Measures - VTE Contraindication to Pharmacological VTE Prophylaxis: Active Bleeding
[2016-06-26] MEDS: POTASSIUM CHLORIDE RIDER 20 MEQ in PREMIX 1 EACH IV PRN ×3 (11:00→16:15)
[2016-06-26] MEDS: ENOXAPARIN 40 MG/0.4 ML SYRINGE SUBCUT SCH (14:00)
[2016-06-26 15:39] LABS: Potassium 3.5 MMOL/L (3.5-5.1)
[2016-06-26] MEDS: POTASSIUM CHLORIDE RIDER 10 MEQ in PREMIX 1 EACH IV PRN (17:20)
[2016-06-26] MEDS: METOCLOPRAMIDE 10 MG/2 ML VIAL IV SCH (20:57)
[2016-06-27] MEDS: INSULIN REGULAR 100 UNIT/ML SUBCUT SCH ×4 (00:20→18:20)
[2016-06-27] MEDS: FAMOTIDINE 20 MG/2 ML VIAL IV SCH (00:29)
[2016-06-27] MEDS: PIPERACILLIN/TAZOBACTAM 3,375 MG in SODIUM CHLORIDE 0.9% 100 ML IV SCH ×3 (00:29→16:43)
[2016-06-27] MEDS: ALBUTEROL/IPRATROPIUM 3 ML NEB RESP TX SCH ×4 (00:33→19:10)
[2016-06-27] MEDS: METOCLOPRAMIDE 10 MG/2 ML VIAL IV SCH ×4 (00:36→18:04)
[2016-06-27] MEDS: PHENYLEPHRINE DRIP 40 MG/250 ML PREMIX IV PRN ×2 (01:51→18:05)
[2016-06-27] MEDS: ALBUMIN 25% 25 GM in PREMIX 1 EACH IV SCH ×3 (04:24→19:54)
[2016-06-27 04:26] LABS: Basophils # 0.1 10*3/uL (0.0-0.2); Basophils % 0.6 % (0.0-0.8); Eosinophils # 0.2 10*3/uL (0.0-0.87); Eosinophils % 2.5 % (0.00-10.9); Hematocrit 29.7 VOL% (42.0-52.0); Hemoglobin 9.6 GM/DL (14.0-18.0); Immature Granulocytes % 1.5 %; Immature Granulocytes Absolute 0.13 #; Lymphocytes # 1.2 10*3/uL (1.4-4.0); Lymphocytes % 14.1 % (21.2-54.2); Mean Corpuscular HGB Conc 32.3 GM/DL (32-36); Mean Corpuscular Hemoglobin 31 PG (27-34); Mean Corpuscular Volume 96.7 FL (87-102); Monocytes # 1.2 10*3/uL (0.11-0.8); Monocytes % 13.9 % (1.7-12.7); Neutrophils # 5.9 10*3/uL (1.4-7.4); Neutrophils % 67.4 % (38.7-73.9); Platelet Count 128 T/CUMM (130-400); Red Blood Count 3.07 MC/CUMM (3.8-5.5); Red Cell Distribution Width 17.8 % (9.3-17.3); White Blood Count 8.8 T/CUMM (4-12)
[2016-06-27 04:55] LABS: Calcium 8.4 MG/DL (8.5-10.1); Magnesium 1.5 MG/DL (1.8-2.4); Osmolality,Calculated 286.1 MOS/KG (273-304); Potassium 3.6 MMOL/L (3.5-5.1)
[2016-06-27 04:56] LABS: Ovalocytes 1+; Platelet Estimate Normal
[2016-06-27 05:05] LABS: Allen Test Positive; Pt O2 Delivery Device Ventilator
[2016-06-27 05:07] LABS: ABG Base Excess 1.9 MMOL/L (-2.5-2.5); ABG HCO3 24.6 MMOL/L (20-26); ABG Oxygen Saturation 98.6 % (95-100); ABG PCO2 31.6 MM HG (35-48); ABG PH 7.509 (7.35-7.45); ABG PO2 141.7 MM HG (80-95); ABG TCO2 25.6 MMOL/L (23-27)
[2016-06-27] MEDS: POTASSIUM CHLORIDE RIDER 20 MEQ in PREMIX 1 EACH IV PRN (05:10)
[2016-06-27] MEDS: MAGNESIUM SULF RIDER 2 GM in PREMIX 1 EACH IV PRN (05:10)
[2016-06-27] MEDS: LEVOTHYROXINE 75 MCG TABLET PO SCH (06:04)
--- NOTE | 2016-06-27 08:04 | XRay Report ---
History: Patient on ventilator Date: 06/27/2016 Study: Chest x-ray AP portable Comparison exam: 06/26/2016 The endotracheal tube, nasogastric tube, and right PICC line remain in stable satisfactory position. A left subclavian transvenous pacemaker device is unchanged. There is continued bibasilar atelectasis/infiltrate and mild left pleural effusion. There is slightly improved aeration in the right lung base. There is stable cardiomegaly. The mediastinal contour is unchanged. The pulmonary vasculature is not grossly engorged. There is no pneumothorax. Osseous structures are unchanged. Impression: Mildly improved aeration in the right lung base. Otherwise unchanged from the previous day PROCEDURE INTERPRETED AT [facility] DEPARTMENT OF RADIOLOGY Final Report Signed by: Dr. Susan Ray
--- NOTE | 2016-06-27 08:16 | Family Practice Progress Note ---
Family Practice - PN: Subj Interval history: Patient seen this morning continues on the ventilator. Has multiple comorbidities including congestive heart failure, paroxysmal atrial fibrillation and is in atrial fibrillation right now. He also has alcohol abuse. Magnesium was low this morning were supplementing that as well as potassium as needed. He is unchanged overall continuing ventilator as noted. We are going to try to reinitiate tube feedings at a low dose today. Appreciate pulmonary assistance on this case Exam (Progress Note) - Constitutional Vitals: Period Temp Pulse Resp BP Sys/Mcbride Pulse Ox Last 24 Hr 97.1 F-98.5 F 61-86 16-30 69-127/35-75 98-100 Exam: Remains on ventilator NG tube is in place at this time. Cardiovascular 1/6 systolic ejection murmur. Heart rate goes up requiring Cardizem periodically. Continues in A. fib Lungs few rales and mild diffuse rhonchi. Abdomen soft nondistended, NG tube in place. Try to initiate re-tube feedings Extremities some mild edema. Areas of skin fragility. Results - Labs CBC & BMP: 06/27/16 04:00 06/27/16 04:00 Quality Measures - VTE Contraindication to Pharmacological VTE Prophylaxis: Active Bleeding
--- NOTE | 2016-06-27 08:46 | Cardiology Progress Note ---
Assessment and Plan (1) Atrial flutter with rapid ventricular response Status: Acute Assessment and plan: At present this is managed with medications. He still is in atrial flutter. He is on low-dose Lovenox. He is also on his sotalol. We will continue to monitor this. At some point he may need electrocardioversion may need JAYCEE before that. Part issues is on the underlying medical issues increase his wrist he will not be able to stay in sinus rhythm. Certainly wall of the later this may to be an option. Current Visit: Yes (2) Hypertension Status: Chronic Assessment and plan: Not issue at this time on his present medical regimen. Current Visit: No (3) CHF (congestive heart failure) Status: Acute Assessment and plan: LV function is normal with minimal diastolic dysfunction. Any heart failure is probably from volume issues and his other underlying problems. Current Visit: No Qualifiers: Congestive heart failure type: systolic Congestive heart failure chronicity : acute on chronic Qualified Code(s): I50.23 - Acute on chronic systolic ( congestive) heart failure (4) Failure to thrive Status: Chronic Assessment and plan: This is secondary to multiple medical issues and problems. Current Visit: Yes Qualifiers: Failure to thrive age range: in adult Qualified Code(s): R62.7 - Adult failure to thrive (5) Paroxysmal atrial fibrillation Status: Chronic Assessment and plan: Presently in atrial flutter. Current Visit: Yes (6) Obstructive sleep apnea Problem details: refusing his mask Status: Chronic Assessment and plan: Complications overall issues. Current Visit: Yes (7) Acute pancreatitis Status: Resolved Current Visit: Yes Qualifiers: Pancreatitis type: alcohol induced (8) Alcoholic cirrhosis Status: Acute Current Visit: Yes (9) Alcohol abuse Status: Chronic Current Visit: Yes (10) Hypotension Status: Chronic Assessment and plan: The present illness pressure issues is his multiple medical problems and he is on no medications. Current Visit: Yes Qualifiers: Hypotension type: orthostatic hypotension Qualified Code(s): I95.1 - Orthostatic hypotension Cardiology - PN: Subj Interval history: Patient's last 24 hours from a cardiac standpoint Gen. he is been unremarkable and unchanged. He continues to be in atrial flutter with controlled ventricular response. His blood pressures of been a little malaise slow side. He has been a little bit of low dose Lovenox. Question some point during the cardioversion. I think most of his issues are that of his other underlying medical problems. Lower is fairly unremarkable and his magnesium is in no way low his potassium is low normal. He is on protocol. Renal function remained stable. Exam (Progress Note) - Constitutional Vitals: Period Temp Pulse Resp BP Sys/Mcbride Pulse Ox Last 24 Hr 97.1 F-98.5 F 61-86 16-30 69-127/35-75 98-100 Exam: General appearance: Obese, on propofol and ventilator. HEENT exam: normal inspection, atraumatic, he has oral intubation. Neck exam: normal inspection no JVD. No carotid bruit. Trachea is in midline Respiratory/lungs exam: clear to auscultation anteriorly and bilaterally with good air movement. He is on ventilator. Cardiovascular exam: Rates are stable with a rhythm the low irregular with soft systolic murmur. Chest wall exam: No gross abnormalities. GI/Abdominal exam: Obese with bowel sounds, soft, nontender. Extremeties/musculoskeletal: normal inspection without significant edema and no cyanosis. Neurological exam: Patient is sedated on propofol and on ventilator. Psychiatric exam: Sedated on propofol Skin exam: warm Result/EKG - Labs CBC & BMP: 06/27/16 04:00 06/27/16 04:00 Lab Results: I have reviewed the past 24 hour labs (reviewed and noted.) Labs: Laboratory Results - last 24 hr 06/26/16 06/26/16 06/26/16 11:34 15:10 17:45 WBC RBC Hgb Hct MCV MCH MCHC RDW Plt Count MPV Neut % (Auto) Lymph % (Auto) [place] % (Auto) Eos % (Auto) Baso % (Auto) Neut # (Auto) Lymph # (Auto) [place] # (Auto) Eos # (Auto) Baso # (Auto) Immature Gran % Nucleated RBC % Immature Gran # Nucleated RBCs # Platelet Estimate Ovalocytes ABG pH ABG pCO2 ABG pO2 ABG HCO3 ABG Total CO2 ABG O2 Saturation ABG Base Excess FiO2 Sodium Potassium 3.5 Chloride Carbon Dioxide Anion Gap BUN Creatinine GFR Calculation BUN/Creatinine Ratio Glucose POC Glucose 112 H 110 H Calculated Osmolality Calcium Magnesium 2.0 06/27/16 06/27/16 06/27/16 00:18 04:00 04:00 WBC 8.8 RBC 3.07 L Hgb 9.6 L Hct 29.7 L MCV 96.7 MCH 31 MCHC 32.3 RDW 17.8 H Plt Count 128 L MPV 11.0 Neut % (Auto) 67.4 Lymph % (Auto) 14.1 L Chester % (Auto) 13.9 H Eos % (Auto) 2.5 Baso % (Auto) 0.6 Neut # (Auto) 5.9 Lymph # (Auto) 1.2 L Chester # (Auto) 1.2 H Eos # (Auto) 0.2 Baso # (Auto) 0.1 Immature Gran % 1.5 Nucleated RBC % 0.0 Immature Gran # 0.13 Nucleated RBCs # 0.00 Platelet Estimate Normal Ovalocytes 1+ ABG pH ABG pCO2 ABG pO2 ABG HCO3 ABG Total CO2 ABG O2 Saturation ABG Base Excess FiO2 Sodium 142 Potassium 3.6 Chloride 108 H Carbon Dioxide 26 Anion Gap 11.6 BUN 21 H Creatinine 1.10 GFR Calculation 96 BUN/Creatinine Ratio 19.00 Glucose 108 H POC Glucose 114 H Calculated Osmolality 286.1 Calcium 8.4 L Magnesium 1.5 L 06/27/16 05:00 WBC RBC Hgb Hct MCV MCH MCHC RDW Plt Count MPV Neut % (Auto) Lymph % (Auto) Chester % (Auto) Eos % (Auto) Baso % (Auto) Neut # (Auto) Lymph # (Auto) Chester # (Auto) Eos # (Auto) Baso # (Auto) Immature Gran % Nucleated RBC % Immature Gran # Nucleated RBCs # Platelet Estimate Ovalocytes ABG pH 7.509 H ABG pCO2 31.6 L ABG pO2 141.7 H ABG HCO3 24.6 ABG Total CO2 25.6 ABG O2 Saturation 98.6 ABG Base Excess 1.9 FiO2 50.00 Sodium Potassium Chloride Carbon Dioxide Anion Gap BUN Creatinine GFR Calculation BUN/Creatinine Ratio Glucose POC Glucose Calculated Osmolality Calcium Magnesium - Impressions Impressions: Telemetry with atrial flutter controlled ventricular response at this time. Quality Measures - VTE Contraindication to Pharmacological VTE Prophylaxis: Active Bleeding
[2016-06-27] MEDS: MEGESTROL 400 MG/10 ML UDCUP PO SCH ×2 (09:48→21:21)
[2016-06-27] MEDS: MIDODRINE 5 MG TABLET PO SCH ×3 (09:48→21:22)
[2016-06-27] MEDS: SOTALOL 80 MG TABLET PO SCH ×2 (09:48→21:22)
[2016-06-27] MEDS: DILTIAZEM 30 MG TABLET PO SCH ×2 (09:49→21:22)
[2016-06-27] MEDS: chlordiazePOXIDE 25 MG CAPSULE PO SCH ×2 (09:49→15:25)
[2016-06-27] MEDS: FUROSEMIDE 40 MG/4 ML VIAL IV SCH ×2 (09:50→15:24)
[2016-06-27] MEDS: THIAMINE 200 MG/2 ML VIAL IV SCH (09:50)
[2016-06-27] MEDS: PANTOPRAZOLE 40 MG VIAL IV SCH (09:50)
[2016-06-27] MEDS: DESITIN 4OZ/NYSTATIN 15 GRAM MIXTURE PASTE TOP SCH ×2 (10:01→21:22)
[2016-06-27] MEDS: LACTULOSE 20 GM/30 ML UDCUP PO SCH ×2 (10:01→21:21)
[2016-06-27] MEDS: NYSTATIN CREAM 15 GM TUBE TOP SCH ×2 (10:02→21:22)
--- NOTE | 2016-06-27 10:12 | Pulmonology Progress Note ---
Pulmonary - PN: Subj Interval history: 60y/o M with multiple medical problems intubated for respiratory distress, likely due to heart failure. No acute events overnight. Doing well on vent. CXR unchanged this AM. Blood cultures growing GPC. Phenylephrine dose decreasing. No acute issues overnight. Patient did well on CPAP trial yesterday for 2 hours. Exam (Progress Note) - Constitutional Vitals: Period Temp Pulse Resp BP Sys/Mcbride Pulse Ox Last 24 Hr 97.1 F-98.5 F 61-99 16-30 69-127/35-75 98-100 General appearance: over weight - Head Head exam: Present: normal inspection - Eye Eye exam: Present: EOMI Pupils: Present: KARLEE - Respiratory Respiratory exam: Present: clear to auscultation bilaterally, decreased breath sounds (Left base). Absent: wheezes - Cardiovascular Cardiovascular exam: Present: irregular rhythm - GI/Abdominal GI/Abdominal exam: Present: normal bowel sounds, soft - Extremities Exam Extremities exam: Present: normal inspection - Neurological Exam Neurological exam: Present: other (Sedated on the ventilator) - Skin Skin exam: Present: warm, dry Results - Labs CBC & BMP: 06/27/16 04:00 06/27/16 04:00 - Diagnostic Findings Procedure: Chest x-ray: image reviewed by me (Improving pulmonary edema and pleural effusions compared with yesterday's exam) Assessment and Plan - Time spent with patient Time spent with patient: Greater than 30 minutes (1) NICM (nonischemic cardiomyopathy) Problem details: improved EF per updated ECHO Status: Chronic Assessment and plan: Respiratory failure 2/2 CHF. Improved this AM with decreasing vent requirements and improved volume status on chest x-ray. Will perform CPAP and awakening trial this morning and, if able, will pursue extubation. Continue diuresis. Current Visit: Yes (2) Respiratory failure Status: Acute Assessment and plan: Hypoxic requiring intubation, likely 2/2 volume overload. We will pursue CPAP and awakening trial this morning and extubate if able. If unable to extubate will adjust vent settings by reducing tidal volume to 500. Continue PPI and DVT prophylaxis. Chest x-ray and ABG every morning. Current Visit: Yes (3) Atrial flutter with rapid ventricular response Status: Acute Assessment and plan: Rate controlled this morning with Cardizem titrated off. Continue therapy per cardiology and primary team. Current Visit: Yes (4) Blood bacterial culture positive Status: Acute Assessment and plan: 1 of 4 blood cultures positive for GPC in clusters, possibly contaminant. Ensure repeat cultures are pending & continue current antibiotics. If decompensation, add vancomycin for coverage of MRSA. Current Visit: Yes
[2016-06-27 12:32] LABS: ABG Base Excess 3.1 MMOL/L (-2.5-2.5); ABG HCO3 26.9 MMOL/L (20-26); ABG Oxygen Saturation 97.3 % (95-100); ABG PH 7.468 (7.35-7.45); ABG PO2 102.3 MM HG (80-95); ABG TCO2 28.1 MMOL/L (23-27)
[2016-06-27] MEDS: ENOXAPARIN 40 MG/0.4 ML SYRINGE SUBCUT SCH (15:21)
[2016-06-27] MEDS: PROPOFOL 1,000 MG/100 ML BOTTLE IV SCH (18:20)
[2016-06-28] MEDS: INSULIN REGULAR 100 UNIT/ML SUBCUT SCH ×5 (00:01→23:39)
[2016-06-28] MEDS: PIPERACILLIN/TAZOBACTAM 3,375 MG in SODIUM CHLORIDE 0.9% 100 ML IV SCH ×4 (00:12→23:49)
[2016-06-28] MEDS: FAMOTIDINE 20 MG/2 ML VIAL IV SCH ×2 (00:14→23:49)
[2016-06-28] MEDS: METOCLOPRAMIDE 10 MG/2 ML VIAL IV SCH ×5 (00:18→23:49)
[2016-06-28] MEDS: ALBUTEROL/IPRATROPIUM 3 ML NEB RESP TX SCH ×4 (00:20→20:09)
[2016-06-28] MEDS: ALBUMIN 25% 25 GM in PREMIX 1 EACH IV SCH ×3 (03:34→20:34)
[2016-06-28 04:37] LABS: Basophils % 0.4 % (0.0-0.8); Eosinophils # 0.2 10*3/uL (0.0-0.87); Eosinophils % 2.6 % (0.00-10.9); Hematocrit 27.8 VOL% (42.0-52.0); Hemoglobin 8.9 GM/DL (14.0-18.0); Immature Granulocytes % 3.6 %; Lymphocytes # 1.2 10*3/uL (1.4-4.0); Lymphocytes % 13.8 % (21.2-54.2); Mean Corpuscular Hemoglobin 31 PG (27-34); Mean Corpuscular Volume 98.2 FL (87-102); Monocytes # 1.2 10*3/uL (0.11-0.8); Monocytes % 13.9 % (1.7-12.7); Neutrophils # 5.5 10*3/uL (1.4-7.4); Neutrophils % 65.7 % (38.7-73.9); Platelet Count 109 T/CUMM (130-400); Red Blood Count 2.83 MC/CUMM (3.8-5.5); Red Cell Distribution Width 17.9 % (9.3-17.3); White Blood Count 8.4 T/CUMM (4-12)
[2016-06-28 05:09] LABS: Calcium 8.9 MG/DL (8.5-10.1); Magnesium 1.6 MG/DL (1.8-2.4); Phosphorous 0.9 MG/DL (2.5-4.9); Potassium 3.1 MMOL/L (3.5-5.1); Prealbumin 6.2 MG/DL (20-40)
[2016-06-28] MEDS: POTASSIUM CHLORIDE RIDER 20 MEQ in PREMIX 1 EACH IV PRN (05:36)
[2016-06-28] MEDS: MAGNESIUM SULF RIDER 2 GM in PREMIX 1 EACH IV PRN (05:38)
[2016-06-28] MEDS: LEVOTHYROXINE 75 MCG TABLET PO SCH (06:05)
--- NOTE | 2016-06-28 07:19 | XRay Report ---
XR chest 1V portable Indication: Shortness of breath Comparison: Chest x-ray 06/27/2016 Technique: Portable AP chest was performed. Findings: Multiple tubes and medical support devices appear stable. Bibasilar airspace opacities remain present more prominent on the left. Study is underpenetrated with limited inspiration. Chest otherwise demonstrates little change. Cardiac pacemaker is stable. Impression: 1. Little interval change in the chest is suggested. 06/28/2016 7:16 AM PROCEDURE INTERPRETED AT [facility] DEPARTMENT OF RADIOLOGY Final Report Signed by: Dr. Terry Diaz
--- NOTE | 2016-06-28 07:58 | Family Practice Progress Note ---
Family Practice - PN: Subj Interval history: Patient did well on the ventilator over the weekend. He has been off sedation now for 24 hours and according to nursing staff has been following simple commands. I am going to order repeat CT of his brain and ammonia level. Exam (Progress Note) - Constitutional Vitals: Period Temp Pulse Resp BP Sys/Mcbride Pulse Ox Last 24 Hr 97.1 F-98.9 F 60-120 16-99 80-140/31-91 97-100 Exam: Objectively well-developed white male who is presently on ventilator support. He is minimally responsive. Cardiovascular: Heart rates irregular with no murmurs or gallops. Respiratory: Lungs clear to auscultation bilaterally. Abdomen: Abdomen soft and nontender to palpation. Neuro: Patient is moving all extremities to painful stimuli Results - Labs CBC & BMP: 06/28/16 04:30 06/28/16 04:30 Lab Results: I have reviewed the past 24 hour labs Assessment and Plan (1) Atrial flutter Status: Chronic Assessment and plan: 06/22/2016: Heart rate still bit elevated and he appears to be in persistent flutter 06/23/2016: Persistent atrial flutter. Current Visit: No (2) Anemia Status: Acute Assessment and plan: 06/22/2016: Hematocrit remained stable. Patient has heme positive stool. Current Visit: Yes (3) Obstructive sleep apnea Problem details: refusing his mask Status: Chronic Assessment and plan: 06/22/2016: Patient apparently refusing to wear his CPAP mask. Current Visit: Yes (4) Acute pancreatitis Status: Resolved Assessment and plan: 06/22/2016: Patient's pancreatitis has resolved. Current Visit: Yes Qualifiers: Pancreatitis type: alcohol induced (5) Aspiration pneumonitis Status: Acute Assessment and plan: 06/23/2016: Have ordered 40 of Lasix. Blood cultures have been ordered. Will ask pulmonary to see as well. 06/28/2016: Patient is doing well in the event, is not tolerating weaning and will probably need LTAC. Current Visit: Yes Quality Measures - VTE Contraindication to Pharmacological VTE Prophylaxis: Active Bleeding
--- NOTE | 2016-06-28 08:20 | Pulmonology Progress Note ---
Pulmonary - PN: Subj Interval history: Patient is a 60-year-old white man that is in very poor condition with obesity and chronic liver disease and heart disease. He was having more respiratory distress yesterday and had to be intubated. He has been on the ventilator and has been improving . His oxygenation is better and his chest x-ray is better. He did do CPAP over the weekend and seems to be doing a little better. He still requires some sedatives. His chest x-ray is much better now. Exam (Progress Note) - Constitutional Vitals: Period Temp Pulse Resp BP Sys/Mcbride Pulse Ox Last 24 Hr 98.3 F-98.9 F 60-120 16-99 80-140/31-91 97-100 Exam: General appearance: no distress (He is sedated and comfortable on the ventilator at present.) - Head Head exam: Present: normal inspection, normocephalic - Eye Eye exam: Present: EOMI. Absent: scleral icterus Pupils: Present: KARLEE - ENT ENT exam: Present: other (Patient has a very narrow hypopharynx) he has an ET tube in good position. - Neck Neck exam: Present: other (Patient does have a large neck). Absent: lymphadenopathy, thyromegaly - Respiratory Respiratory exam: Present: He has fairly good breath sounds bilaterally and his lungs do sound clearer. - Cardiovascular Cardiovascular exam: Present: His heart rate is regular and under better control now. - GI/Abdominal GI/Abdominal exam: Present:active bowel sounds, soft, other (Abdomen is large). Absent: organomegaly, tenderness - Extremities Exam Extremities exam: Absent: calf tenderness, edema - Neurological Exam Neurological exam: Present: altered (Patient is sedated now.) - Psychiatric Psychiatric exam: Present: He is sedated and calm on the ventilator. - Skin Skin exam: Present: warm, dry Results - Labs CBC & BMP: 06/28/16 04:30 06/28/16 04:30 - Diagnostic Findings Procedure: Chest x-ray: image reviewed by me, report reviewed by me (Chest x- ray is much better with less infiltrates) Assessment and Plan (1) NICM (nonischemic cardiomyopathy) Problem details: improved EF per updated ECHO Status: Chronic Assessment and plan: The patient does have cardiomegaly and certainly looks like he may have some congestive heart failure. He continues to diurese very well. Current Visit: Yes (2) Paroxysmal atrial fibrillation Status: Chronic Assessment and plan: The patient continues to require medications for his heart rate. His heart rate is much better today however. Current Visit: Yes (3) Obstructive sleep apnea Problem details: refusing his mask Status: Chronic Assessment and plan: Patient is combative at times and will not use his CPAP. Now he is on the ventilator. Current Visit: Yes (4) Alcoholic cirrhosis Status: Acute Assessment and plan: Patient had a bilirubin of 2.9 on last check. Current Visit: Yes (5) Aspiration pneumonitis Status: Acute Assessment and plan: Patient has better oxygenation and his lungs are clearing. He is fairly stable on the ventilator and hopefully can extubate soon. Current Visit: Yes
[2016-06-28 08:34] LABS: ABG Base Excess 2.9 MMOL/L (-2.5-2.5); ABG Oxygen Saturation 98.6 % (95-100); ABG PCO2 39.4 MM HG (35-48); ABG PH 7.445 (7.35-7.45); ABG TCO2 24.9 MMOL/L (23-27); Allen Test Positive; Pt O2 Delivery Device Ventilator
--- NOTE | 2016-06-28 08:35 | Cardiology Progress Note ---
Addendum entered and electronically signed by Risa Hannon NP 06/28/16 08:49 : Mr. Tracy's phosphorous is low today. He will receive replacement for this in addition to his other electrolyte replacement. Original Note: <Risa Hannon - Last Filed: 06/28/16 08:17> Assessment and Plan - Time spent with patient Time spent with patient: Less than 30 minutes (1) Atrial flutter Status: Chronic Assessment and plan: This is being managed with medications currently. Is difficult to determine if he is still in atrial flutter with 2-1 block or normal sinus rhythm. We will obtain EKG for further evaluation. He is on a low-dose Lovenox and sotalol. He remains on IV Cardizem and phenylephrine. It has been difficult to wean him from IV Cardizem. At some point he may need JAYCEE/electrocardioversion. Current Visit: No (2) Paroxysmal atrial fibrillation Status: Chronic Assessment and plan: Currently in atrial flutter. He was previously on aspirin and Eliquis for stroke prevention. These are being held due to his profound anemia. He has required transfusion of 5 units PRBCs this admission, last transfusion on 2016. He has been started on Lovenox for DVT prophylaxis and stroke protection. Current Visit: Yes (3) CHF (congestive heart failure) Status: Acute Assessment and plan: Echocardiogram 06/16/16 revealed EF 60%, grade I/IV diastolic dysfunction. Getting heart failure probably from volume issues and his other underlying problems. Current Visit: No Qualifiers: Congestive heart failure type: systolic Congestive heart failure chronicity : acute on chronic Qualified Code(s): I50.23 - Acute on chronic systolic ( congestive) heart failure (4) Obstructive sleep apnea Problem details: refusing his mask Status: Chronic Assessment and plan: Noncompliant, refuses CPAP mask. Complicates his overall issues. Current Visit: Yes (5) Hypertension Status: Chronic Assessment and plan: Vasopressors were restarted due to hypotension. He continues to require IV Cardizem and propofol for sedation while on mechanical ventilation. Will continue to monitor. Current Visit: No (6) Alcoholic cirrhosis Status: Acute Current Visit: Yes (7) Obesity Status: Chronic Current Visit: Yes (8) Alcohol abuse Status: Chronic Assessment and plan: Per Dr. Garcia's notes, the patient's would like for him to go to a treatment center when he is medically stable. Current Visit: Yes (9) Failure to thrive Status: Chronic Assessment and plan: This is secondary to multiple medical issues and problems. Current Visit: Yes Qualifiers: Failure to thrive age range: in adult Qualified Code(s): R62.7 - Adult failure to thrive (10) Hypotension Status: Acute Assessment and plan: His hypotension is complicated by his multiple medical problems. He is on vasopressor support. Current Visit: Yes Qualifiers: Hypotension type: orthostatic hypotension Qualified Code(s): I95.1 - Orthostatic hypotension Cardiology - PN: Subj Interval history: Jockey'S Agent: Dr. Drake PCP: Dr. Reyes Mr. Tracy has a history of anxiety, atrial fibrillation, diabetes, hypertension, psoriasis, tachybradycardia syndrome status post dual-chamber pacemaker placement, obstructive sleep apnea (noncompliant), hyperlipidemia, EtOH abuse. He was admitted to the hospital on June 15, 2016 and found to have pancreatitis, liver failure, and hepatorenal syndrome. We have been seeing him for atrial flutter with rapid ventricular response. We have resumed his Sotalol and he remains on IV Cardizem. He is sedated and on mechanical ventilation and is requiring vasopressor support. From a cardiac standpoint, he has been unremarkable and unchanged. He is now at a well controlled rate. It's difficult to tell if he is in a sinus rhythm or if he remains in atrial flutter with 2:1 block. We will obtain an EKG for further evaluation. I spoke with his nurse about weaning off the IV Cardizem and she reports they have been attempting this, but every time they try to decrease the dosage, his rates increase. He will respond to painful stimuli, but has been more lethargic. He is for a CT head today. He is on low dose Lovenox. Potassium is 3.1 today, magnesium 1.6. He is on replacement protocol for these. Creatinine 1.2 today. Exam (Progress Note) - Constitutional Vitals: Period Temp Pulse Resp BP Sys/Mcbride Pulse Ox Last 24 Hr 98.3 F-98.9 F 60-120 16-99 80-140/31-91 97-100 Exam: General appearance: Orally intubated and sedated on ventilator. Obese. no acute distress. - Head Head exam: Present: normal inspection, normocephalic, atraumatic. Absent: hematoma, laceration - Eye Eye exam: Present: EOMI. Absent: conjunctival injection, nystagmus, periorbital swelling, scleral icterus, laceration to eyelids Pupils: Present: PERRL. Absent: constricted, dilated, fixed, irregular, unequal - ENT ENT exam: Present: Orally intubated, normal external ear exam. NG tube in place and clamped. - Neck Neck exam: Present: normal inspection. Absent: lymphadenopathy, meningismus, tenderness, thyromegaly - Respiratory Respiratory exam: Present: Mechanically ventilated breath sounds. Absent: accessory muscle use - Cardiovascular Cardiovascular exam: Present: Regular rate and rhythm. Absent: gallop, JVD, rubs, murmur - GI/Abdominal GI/Abdominal exam: Present: normal bowel sounds, soft. Absent: distended, firm , guarding, hernia, mass, tenderness, rebound. - Extremities Exam Extremities exam: Present: normal inspection, normal capillary refill. Upper extremity pulses 2+. Lower extremity pulses diminished. 1-2+ pitting bilateral lower extremity edema. Absent: calf tenderness - Back Exam Back exam: Present: Unable to examine due to habitus. Sedated on mechanical ventilator. - Neurological Exam Neurological exam: Present: Limited due to habitus (on ventilator). Arousable to painful stimuli. No resting or essential tremor. - Psychiatric Psychiatric exam: Present: Unable to adequately assess due to patient being sedated and on mechanical ventilation. - Skin Skin exam: Present: normal color, warm, dry, intact. Absent: cyanosis, diaphoretic, rash, urticaria Result/EKG - Labs CBC & BMP: 06/28/16 04:30 06/28/16 04:30 Lab Results: I have reviewed the past 24 hour labs Labs: Laboratory Results - last 24 hr 06/27/16 06/27/16 06/27/16 11:54 12:33 18:04 WBC RBC Hgb Hct MCV MCH MCHC RDW Plt Count MPV Neut % (Auto) Lymph % (Auto) [place] % (Auto) Eos % (Auto) Baso % (Auto) Neut # (Auto) Lymph # (Auto) [place] # (Auto) Eos # (Auto) Baso # (Auto) Immature Gran % Nucleated RBC % Immature Gran # Nucleated RBCs # ABG pH 7.468 H ABG pCO2 38.0 ABG pO2 102.3 H ABG HCO3 26.9 H ABG Total CO2 28.1 H ABG O2 Saturation 97.3 ABG Base Excess 3.1 H Sodium Potassium Chloride Carbon Dioxide Anion Gap BUN Creatinine GFR Calculation BUN/Creatinine Ratio Glucose POC Glucose 118 H 114 H Calculated Osmolality Calcium Phosphorus Magnesium Prealbumin 06/27/16 06/28/16 06/28/16 23:53 04:30 04:30 WBC 8.4 RBC 2.83 L Hgb 8.9 L Hct 27.8 L MCV 98.2 MCH 31 MCHC 32.0 RDW 17.9 H Plt Count 109 L MPV 11.0 Neut % (Auto) 65.7 Lymph % (Auto) 13.8 L [place] % (Auto) 13.9 H Eos % (Auto) 2.6 Baso % (Auto) 0.4 Neut # (Auto) 5.5 Lymph # (Auto) 1.2 L [place] # (Auto) 1.2 H Eos # (Auto) 0.2 Baso # (Auto) 0.0 Immature Gran % 3.6 Nucleated RBC % 0.0 Immature Gran # 0.30 Nucleated RBCs # 0.00 ABG pH ABG pCO2 ABG pO2 ABG HCO3 ABG Total CO2 ABG O2 Saturation ABG Base Excess Sodium 143 Potassium 3.1 L Chloride 107 Carbon Dioxide 30 Anion Gap 9.1 BUN 27 H Creatinine 1.20 GFR Calculation 86 BUN/Creatinine Ratio 22.00 H Glucose 125 H POC Glucose 118 H Calculated Osmolality 290.0 Calcium 8.9 Phosphorus 0.9 L Magnesium 1.6 L Prealbumin 6.2 L Quality Measures - VTE Contraindication to Pharmacological VTE Prophylaxis: Active Bleeding <Kari Garcia - Last Filed: 06/28/16 09:53> Cardiology - PN: Subj Interval history: I have personally interviewed and evaluated the patient, reviewed the chart and discussed medical decision-making with practitioner Parvez. I have read this note and agree with her documentation here in. The patient's heart rate is a lot slower today, and this makes me suspicious that he is resume to normal sinus rhythm. We will check an ECG to confirm this. We will decrease his IV Cardizem since his rate is controlled and he is still requiring pressor support. Replace electrolytes as indicated. Exam (Progress Note) - Constitutional Vitals: Period Temp Pulse Resp BP Sys/Mcbride Pulse Ox Last 24 Hr 98.3 F-98.9 F 60-120 16-99 80-140/31-91 97-100 Result/EKG - Labs CBC & BMP: 06/28/16 04:30 06/28/16 04:30 Labs: Laboratory Results - last 24 hr 06/27/16 06/27/16 06/27/16 11:54 12:33 18:04 WBC RBC Hgb Hct MCV MCH MCHC RDW Plt Count MPV Neut % (Auto) Lymph % (Auto) [place] % (Auto) Eos % (Auto) Baso % (Auto) Neut # (Auto) Lymph # (Auto) [place] # (Auto) Eos # (Auto) Baso # (Auto) Immature Gran % Nucleated RBC % Immature Gran # Nucleated RBCs # ABG pH 7.468 H ABG pCO2 38.0 ABG pO2 102.3 H ABG HCO3 26.9 H ABG Total CO2 28.1 H ABG O2 Saturation 97.3 ABG Base Excess 3.1 H FiO2 Sodium Potassium Chloride Carbon Dioxide Anion Gap BUN Creatinine GFR Calculation BUN/Creatinine Ratio Glucose POC Glucose 118 H 114 H Calculated Osmolality Calcium Phosphorus Magnesium Prealbumin 06/27/16 06/28/16 06/28/16 23:53 04:30 04:30 WBC 8.4 RBC 2.83 L Hgb 8.9 L Hct 27.8 L MCV 98.2 MCH 31 MCHC 32.0 RDW 17.9 H Plt Count 109 L MPV 11.0 Neut % (Auto) 65.7 Lymph % (Auto) 13.8 L [place] % (Auto) 13.9 H Eos % (Auto) 2.6 Baso % (Auto) 0.4 Neut # (Auto) 5.5 Lymph # (Auto) 1.2 L [place] # (Auto) 1.2 H Eos # (Auto) 0.2 Baso # (Auto) 0.0 Immature Gran % 3.6 Nucleated RBC % 0.0 Immature Gran # 0.30 Nucleated RBCs # 0.00 ABG pH ABG pCO2 ABG pO2 ABG HCO3 ABG Total CO2 ABG O2 Saturation ABG Base Excess FiO2 Sodium 143 Potassium 3.1 L Chloride 107 Carbon Dioxide 30 Anion Gap 9.1 BUN 27 H Creatinine 1.20 GFR Calculation 86 BUN/Creatinine Ratio 22.00 H Glucose 125 H POC Glucose 118 H Calculated Osmolality 290.0 Calcium 8.9 Phosphorus 0.9 L Magnesium 1.6 L Prealbumin 6.2 L 06/28/16 08:25 WBC RBC Hgb Hct MCV MCH MCHC RDW Plt Count MPV Neut % (Auto) Lymph % (Auto) [place] % (Auto) Eos % (Auto) Baso % (Auto) Neut # (Auto) Lymph # (Auto) [place] # (Auto) Eos # (Auto) Baso # (Auto) Immature Gran % Nucleated RBC % Immature Gran # Nucleated RBCs # ABG pH 7.445 ABG pCO2 39.4 ABG pO2 104.0 H ABG HCO3 27.0 H ABG Total CO2 24.9 ABG O2 Saturation 98.6 ABG Base Excess 2.9 H FiO2 50.00 Sodium Potassium Chloride Carbon Dioxide Anion Gap BUN Creatinine GFR Calculation BUN/Creatinine Ratio Glucose POC Glucose Calculated Osmolality Calcium Phosphorus Magnesium Prealbumin
[2016-06-28] MEDS ORDERED: POTASSIUM PHOSPHATE 30 MMOL in SODIUM CHLORIDE 0.9% 250 ML IV ONE (08:46)
--- NOTE | 2016-06-28 09:06 | EKG Report ---
Stationary ECG Study [facility] Test Date: 06/28/2016 9:03:46 AM Pat Name: ISAC AYON Department: Room: 108 Gender: M Staff Psychiatrist: Jeovanny : 1955 Requested by: Risa Hannon Order Number: [id number] Reading MD: LINWOOD DREW Intervals [place] Rate: 65 P: -52 RI: 129 QRS: 24 QRSD: 102 T: -83 QT: 506 QTc: 517 Interpretive Statements ELECTRONIC ATRIAL PACEMAKER LOW QRS VOLTAGE INCOMPLETE RIGHT BUNDLE BRANCH BLOCK ABNORMALITY, POSSIBLE ANTEROLATERAL ISCHEMIA Electronically Signed On 07-01-16 10:07:50 CDT by LINWOOD DREW [email or web address]
[2016-06-28] MEDS: FUROSEMIDE 40 MG/4 ML VIAL IV SCH ×2 (09:50→17:00)
[2016-06-28] MEDS: PANTOPRAZOLE 40 MG VIAL IV SCH (09:52)
[2016-06-28] MEDS: THIAMINE 200 MG/2 ML VIAL IV SCH (09:56)
[2016-06-28] MEDS: SOTALOL 80 MG TABLET PO SCH ×2 (10:08→20:35)
[2016-06-28] MEDS: DILTIAZEM 30 MG TABLET PO SCH ×3 (10:08→23:48)
[2016-06-28] MEDS: LACTULOSE 20 GM/30 ML UDCUP PO SCH ×2 (10:08→20:35)
[2016-06-28] MEDS: MIDODRINE 5 MG TABLET PO SCH ×3 (10:09→20:35)
[2016-06-28] MEDS: MEGESTROL 400 MG/10 ML UDCUP PO SCH ×2 (10:09→20:35)
[2016-06-28 10:10] LABS: Calcium 8.7 MG/DL (8.5-10.1); Magnesium 2.3 MG/DL (1.8-2.4); Osmolality,Calculated 293.8 MOS/KG (273-304); Potassium 3.6 MMOL/L (3.5-5.1)
[2016-06-28] MEDS: NYSTATIN CREAM 15 GM TUBE TOP SCH ×2 (10:10→20:36)
--- NOTE | 2016-06-28 11:33 | CT Report ---
CT head/brain wo con Indication: Altered mental status. Comparison: CT head 06/15/2016. Technique: CT of the brain was performed without administration of intravenous contrast. The CT examination was performed using one or more of the following dose reduction techniques: Automatic exposure control, adjustment of the mA and kV according to patient size, use of acute or iterative reconstruction techniques. Findings: There is no evidence of acute intracranial mass, hemorrhage, or infarction. Generalized cerebral atrophy is present. Areas of decreased attenuation within the periventricular white matter and cerebral white matter are present which could be compatible with microvascular ischemia. The basal cisterns are patent. No significant abnormality is demonstrated to involve the posterior fossa or cerebellum. Orbits and globes demonstrate no evidence of significant pathology. The paranasal sinuses are clear. No significant abnormality is demonstrated to involve the mastoid air cells. The calvarium and overlying soft tissues demonstrate no evidence of acute pathology. Impression: 1. No significant interval change in the brain. No evidence of acute intracranial pathology. 06/28/2016 11:30 AM PROCEDURE INTERPRETED AT [facility] DEPARTMENT OF RADIOLOGY Final Report Signed by: Dr. Terry Diaz
[2016-06-28] MEDS: DESITIN 4OZ/NYSTATIN 15 GRAM MIXTURE PASTE TOP SCH ×2 (12:00→20:35)
[2016-06-28] MEDS: ENOXAPARIN 40 MG/0.4 ML SYRINGE SUBCUT SCH (15:02)
[2016-06-28] MEDS: PROPOFOL 1,000 MG/100 ML BOTTLE IV SCH (18:14)
[2016-06-29] MEDS: ALBUTEROL/IPRATROPIUM 3 ML NEB RESP TX SCH ×4 (00:50→20:40)
[2016-06-29] MEDS: ALBUMIN 25% 25 GM in PREMIX 1 EACH IV SCH ×3 (04:19→21:34)
[2016-06-29] MEDS: INSULIN REGULAR 100 UNIT/ML SUBCUT SCH ×3 (05:45→18:25)
[2016-06-29] MEDS: LEVOTHYROXINE 75 MCG TABLET PO SCH (06:16)
[2016-06-29] MEDS: DILTIAZEM 30 MG TABLET PO SCH ×3 (06:16→18:25)
[2016-06-29] MEDS: METOCLOPRAMIDE 10 MG/2 ML VIAL IV SCH ×3 (06:16→18:24)
--- NOTE | 2016-06-29 07:28 | XRay Report ---
Portable chest. Indication: Dyspnea. Shortness of breath. Comparison: June 28, 2016. The heart is enlarged. Cardiac hardware is in satisfactory position. An endotracheal tube and nasogastric tube are in satisfactory position. The pulmonary vasculature is prominent. There are bilateral basilar infiltrates and pleural effusions. Degenerative changes are noted within the spinal column and shoulders. Impression: No interval change. PROCEDURE INTERPRETED AT [facility] DEPARTMENT OF RADIOLOGY Final Report Signed by: Dr. Bina Stewart
--- NOTE | 2016-06-29 07:47 | Family Practice Progress Note ---
Family Practice - PN: Subj Interval history: Patient had a decent night according to nursing staff. He did 12 hours on CPAP yesterday, his repeat chest x-ray this morning shows little improvement however. We will continue to try to wean him from the ventilator. I am going to repeat a CBC, BNP and BMP on him today. Exam (Progress Note) - Constitutional Vitals: Period Temp Pulse Resp BP Sys/Mcbride Pulse Ox Last 24 Hr 96.8 F-98.8 F 60-92 15-38 72-145/28-98 95-100 Exam: Objectively well-developed white male who is presently on ventilator support. He is unchanged from yesterday. Cardiovascular: Heart rates irregular with no murmurs or gallops. Respiratory: Lungs clear to auscultation bilaterally. Abdomen: Abdomen soft and nontender to palpation. Neuro: Patient is moving all extremities to painful stimuli Results - Labs CBC & BMP: 06/28/16 04:30 06/28/16 09:35 Lab Results: I have reviewed the past 24 hour labs Assessment and Plan (1) Atrial flutter Status: Chronic Assessment and plan: 06/22/2016: Heart rate still bit elevated and he appears to be in persistent flutter 06/23/2016: Persistent atrial flutter. Current Visit: No (2) Anemia Status: Acute Assessment and plan: 06/22/2016: Hematocrit remained stable. Patient has heme positive stool. Current Visit: Yes (3) Obstructive sleep apnea Problem details: refusing his mask Status: Chronic Assessment and plan: 06/22/2016: Patient apparently refusing to wear his CPAP mask. Current Visit: Yes (4) Acute pancreatitis Status: Resolved Assessment and plan: 06/22/2016: Patient's pancreatitis has resolved. Current Visit: Yes Qualifiers: Pancreatitis type: alcohol induced (5) Aspiration pneumonitis Status: Acute Assessment and plan: 06/23/2016: Have ordered 40 of Lasix. Blood cultures have been ordered. Will ask pulmonary to see as well. 06/28/2016: Patient is doing well in the event, is not tolerating weaning and will probably need LTAC. 06/29/2016: Patient is slowly improving. Will consult telephonic nurse case manager for LTAC. Current Visit: Yes Quality Measures - VTE Contraindication to Pharmacological VTE Prophylaxis: Active Bleeding
--- NOTE | 2016-06-29 08:10 | EKG Report ---
Stationary ECG Study [facility] Test Date: 06/29/2016 8:08:42 AM Pat Name: ISAC AYON Department: Room: 108 Gender: M Peace Officer: Katty : 1955 Requested by: Risa Hannon Order Number: [id number] Reading MD: LINWOOD DREW Intervals [place] Rate: 64 P: -70 [place]: 158 QRS: 41 QRSD: 102 T: 0 QT: 410 QTc: 420 Interpretive Statements ELECTRONIC ATRIAL PACEMAKER LOW QRS VOLTAGE CONSISTENT WITH PULMONARY DISEASE ABNORMALITY, POSSIBLE ANTEROLATERAL ISCHEMIA Electronically Signed On 07-01-16 11:28:18 CDT by LINWOOD DREW [email or web address]
[2016-06-29] MEDS: PIPERACILLIN/TAZOBACTAM 3,375 MG in SODIUM CHLORIDE 0.9% 100 ML IV SCH ×2 (08:45→16:42)
[2016-06-29 08:46] LABS: Basophils % 0.6 % (0.0-0.8); Eosinophils # 0.2 10*3/uL (0.0-0.87); Eosinophils % 3.4 % (0.00-10.9); Hematocrit 27.2 VOL% (42.0-52.0); Hemoglobin 8.7 GM/DL (14.0-18.0); Immature Granulocytes % 5.5 %; Immature Granulocytes Absolute 0.37 #; Lymphocytes # 1.3 10*3/uL (1.4-4.0); Mean Corpuscular Hemoglobin 32 PG (27-34); Mean Corpuscular Volume 98.9 FL (87-102); Monocytes % 15.4 % (1.7-12.7); Neutrophils # 3.8 10*3/uL (1.4-7.4); Neutrophils % 56.1 % (38.7-73.9); Platelet Count 130 T/CUMM (130-400); Red Blood Count 2.75 MC/CUMM (3.8-5.5); Red Cell Distribution Width 18.1 % (9.3-17.3); White Blood Count 6.8 T/CUMM (4-12)
[2016-06-29] MEDS: LACTULOSE 20 GM/30 ML UDCUP PO SCH ×2 (08:46→21:35)
[2016-06-29] MEDS: MEGESTROL 400 MG/10 ML UDCUP PO SCH ×2 (08:47→21:35)
[2016-06-29 08:51] LABS: ABG HCO3 28.9 MMOL/L (20-26); ABG Oxygen Saturation 98.1 % (95-100); ABG PCO2 37.4 MM HG (35-48); ABG PO2 93.7 MM HG (80-95); ABG TCO2 26.1 MMOL/L (23-27); Allen Test Positive; Pt O2 Delivery Device Ventilator
[2016-06-29] MEDS: NYSTATIN CREAM 15 GM TUBE TOP SCH ×2 (08:55→21:36)
[2016-06-29] MEDS: DESITIN 4OZ/NYSTATIN 15 GRAM MIXTURE PASTE TOP SCH ×2 (08:55→21:35)
[2016-06-29] MEDS: SOTALOL 80 MG TABLET PO SCH ×2 (09:01→21:35)
[2016-06-29] MEDS: FUROSEMIDE 40 MG/4 ML VIAL IV SCH ×2 (09:01→16:39)
[2016-06-29] MEDS: THIAMINE 200 MG/2 ML VIAL IV SCH (09:01)
[2016-06-29] MEDS: PANTOPRAZOLE 40 MG VIAL IV SCH (09:02)
[2016-06-29] MEDS: MIDODRINE 5 MG TABLET PO SCH ×3 (09:02→21:35)
--- NOTE | 2016-06-29 09:04 | Pulmonology Progress Note ---
Pulmonary - PN: Subj Interval history: Patient is a 60-year-old white man that is in very poor condition with obesity and chronic liver disease and heart disease. He was having more respiratory distress yesterday and had to be intubated. He has been on the ventilator and has been improving . His oxygenation is better and his chest x-ray is better. He did do CPAP over the weekend and seems to be doing a little better. Yesterday he was a little sleepy but he is waking up better today. His ammonia level was okay yesterday. He is doing CPAP well and his ABGs are okay. Will try him off the ventilator. Exam (Progress Note) - Constitutional Vitals: Period Temp Pulse Resp BP Sys/Mcbride Pulse Ox Last 24 Hr 96.8 F-98.8 F 60-92 15-38 72-145/33-98 95-100 Exam: General appearance: no distress (He is more alert today and doing CPAP well.) - Head Head exam: Present: normal inspection, normocephalic - Eye Eye exam: Present: EOMI. Absent: scleral icterus Pupils: Present: KARLEE - ENT ENT exam: Present: other (Patient has a very narrow hypopharynx) he has an ET tube in good position. - Neck Neck exam: Present: other (Patient does have a large neck). Absent: lymphadenopathy, thyromegaly - Respiratory Respiratory exam: Present: He has fairly good breath sounds bilaterally and is moving air well without any wheezing. - Cardiovascular Cardiovascular exam: Present: His heart rate is regular and under better control now. - GI/Abdominal GI/Abdominal exam: Present:active bowel sounds, soft, other (Abdomen is large). Absent: organomegaly, tenderness - Extremities Exam Extremities exam: Absent: calf tenderness, edema - Neurological Exam Neurological exam: Present: altered (Patient is responding better now.) - Psychiatric Psychiatric exam: Present: He is sedated and calm on the ventilator. - Skin Skin exam: Present: warm, dry Results - Labs CBC & BMP: 06/29/16 Unknown 06/28/16 09:35 Labs: His PO2 is 93 with a PCO2 of 37 and pH of 7.49 on CPAP. - Diagnostic Findings Procedure: Chest x-ray: image reviewed by me, report reviewed by me (Chest x- ray shows mild bibasilar infiltrates.) Assessment and Plan (1) NICM (nonischemic cardiomyopathy) Problem details: improved EF per updated ECHO Status: Chronic Assessment and plan: The patient does have cardiomegaly and certainly looks like he may have some congestive heart failure. He continues to diurese very well. His weight is down now. Current Visit: Yes (2) Paroxysmal atrial fibrillation Status: Chronic Assessment and plan: The patient continues to require medications for his heart rate. His heart rate is much better today however. Current Visit: Yes (3) Obstructive sleep apnea Problem details: refusing his mask Status: Chronic Assessment and plan: Patient is combative at times and will not use his CPAP. Now he is on the ventilator. He will likely need CPAP when he is off the ventilator. Current Visit: Yes (4) Alcoholic cirrhosis Status: Acute Assessment and plan: Patient had a bilirubin of 2.9 on last check. Current Visit: Yes (5) Aspiration pneumonitis Status: Acute Assessment and plan: Patient has better oxygenation and his lungs are clearing. He is fairly stable on the ventilator and has been doing CPAP nicely. We will try him off the ventilator today. Current Visit: Yes
[2016-06-29 09:13] LABS: Band Neutrophils 1 % (0-10); Eosinophils 3 % (0-10); Lymphocytes 19 % (20-55); Myelocytes 1 %; Segmented Neutrophils 62 % (50-85); Total Cells Counted 100
[2016-06-29 09:14] LABS: Hypochromasia 1+; Macrocytosis 1+; Platelet Estimate Adequate
[2016-06-29 09:16] LABS: Calcium 8.9 MG/DL (8.5-10.1); Magnesium 1.9 MG/DL (1.8-2.4); Osmolality,Calculated 294.8 MOS/KG (273-304); Potassium 3.3 MMOL/L (3.5-5.1)
--- NOTE | 2016-06-29 10:19 | Cardiology Progress Note ---
<Risa Hannon E - Last Filed: 06/29/16 10:08> Assessment and Plan - Time spent with patient Time spent with patient: Less than 30 minutes (1) Atrial flutter Status: Chronic Assessment and plan: This is being managed with medications currently. He is on a low-dose Lovenox and sotalol. IV cardizem has been changed to PO. He is no longer requiring vasopressor support. At some point he may need JAYCEE/electrocardioversion. Current Visit: No (2) Paroxysmal atrial fibrillation Status: Chronic Assessment and plan: He was previously on aspirin and Eliquis for stroke prevention. These are being held due to his profound anemia. He has required transfusion of 5 units PRBCs this admission, last transfusion on 06/21/2016. He has been started on Lovenox for DVT prophylaxis and stroke protection. EKG this morning shows atrial paced rhythm. Current Visit: Yes (3) CHF (congestive heart failure) Status: Acute Assessment and plan: Echocardiogram 06/16/16 revealed EF 60%, grade I/IV diastolic dysfunction. Getting heart failure probably from volume issues and his other underlying problems. Current Visit: No Qualifiers: Congestive heart failure type: systolic Congestive heart failure chronicity : acute on chronic Qualified Code(s): I50.23 - Acute on chronic systolic ( congestive) heart failure (4) Obstructive sleep apnea Problem details: refusing his mask Status: Chronic Assessment and plan: Noncompliant, refuses CPAP mask. Complicates his overall issues. Current Visit: Yes (5) Hypertension Status: Chronic Assessment and plan: Borderline hypotension currently. No longer requiring vasopressor support. Will continue to monitor. Current Visit: No (6) Alcoholic cirrhosis Status: Acute Current Visit: Yes (7) Obesity Status: Chronic Current Visit: Yes (8) Alcohol abuse Status: Chronic Assessment and plan: Per Dr. Garcia's notes, the patient's would like for him to go to a treatment center when he is medically stable. Current Visit: Yes (9) Failure to thrive Status: Chronic Assessment and plan: This is secondary to multiple medical issues and problems. Current Visit: Yes Qualifiers: Failure to thrive age range: in adult Qualified Code(s): R62.7 - Adult failure to thrive (10) Hypotension Status: Acute Assessment and plan: His hypotension is complicated by his multiple medical problems. He is no longer requiring vasopressor support. Will continue to monitor. Current Visit: Yes Qualifiers: Hypotension type: orthostatic hypotension Qualified Code(s): I95.1 - Orthostatic hypotension Cardiology - PN: Subj Interval history: Bulldogger: Dr. Drake PCP: Dr. Reyes Mr. Tracy has a history of anxiety, atrial fibrillation, diabetes, hypertension, psoriasis, tachybradycardia syndrome status post dual-chamber pacemaker placement, obstructive sleep apnea (noncompliant), hyperlipidemia, EtOH abuse. He was admitted to the hospital on June 15, 2016 and found to have pancreatitis, liver failure, and hepatorenal syndrome. We have been seeing him for atrial flutter with rapid ventricular response. We have resumed his Sotalol PO. He had been on IV Cardizem but this was changed to PO yesterday. He seems to be tolerating this well. His rates have been steady in the 70's. He is also off of the phenylephrine and is maintiaining a stable blood pressure. He was seen by pulmonary this morning and has been extubated and is on O2 via facemask. Potassium remains low today. He is on the replacement protocol. We will continue to monitor. Exam (Progress Note) - Constitutional Vitals: Period Temp Pulse Resp BP Sys/Mcbride Pulse Ox Last 24 Hr 96.8 F-98.8 F 60-92 15-38 72-145/35-98 95-100 Exam: General appearance: O2 via facemask. Obese. no acute distress. - Head Head exam: Present: normal inspection, normocephalic, atraumatic. Absent: hematoma, laceration - Eye Eye exam: Present: EOMI. Absent: conjunctival injection, nystagmus, periorbital swelling, scleral icterus, laceration to eyelids Pupils: Present: PERRL. Absent: constricted, dilated, fixed, irregular, unequal - ENT ENT exam: Present: normal external ear exam. NG tube in place and clamped. - Neck Neck exam: Present: normal inspection. Absent: lymphadenopathy, meningismus, tenderness, thyromegaly - Respiratory Respiratory exam: Present: Diffuse rhonchi. Extubated this morning. Absent: accessory muscle use - Cardiovascular Cardiovascular exam: Present: Regular rate and rhythm. Absent: gallop, JVD, rubs, murmur - GI/Abdominal GI/Abdominal exam: Present: normal bowel sounds, soft. Absent: distended, firm , guarding, hernia, mass, tenderness, rebound. - Extremities Exam Extremities exam: Present: normal inspection, normal capillary refill. Upper extremity pulses 2+. Lower extremity pulses diminished. 1-2+ pitting bilateral lower extremity edema. Absent: calf tenderness - Back Exam Back exam: Present: Unable to examine due to habitus. Extubated this morning. Patient remains lethargic. - Neurological Exam Neurological exam: Present: Arousable to verbal and noxious stimuli. Follows some commands. No resting or essential tremor. - Skin Skin exam: Present: normal color, warm, dry, intact. Absent: cyanosis, diaphoretic, rash, urticaria Result/EKG - Labs CBC & BMP: 06/29/16 Unknown 06/29/16 Unknown Lab Results: I have reviewed the past 24 hour labs Labs: Laboratory Results - last 24 hr 06/28/16 06/28/16 06/28/16 09:35 11:52 17:13 WBC RBC Hgb Hct MCV MCH MCHC RDW Plt Count MPV Neut % (Auto) Lymph % (Auto) [place] % (Auto) Eos % (Auto) Baso % (Auto) Neut # (Auto) Lymph # (Auto) [place] # (Auto) Eos # (Auto) Baso # (Auto) Total Counted Immature Gran % Nucleated RBC % Immature Gran # Segmented Neutrophils Band Neutrophils Lymphocytes Monocytes Eosinophils Myelocytes Nucleated RBCs # Platelet Estimate Hypochromasia Macrocytosis ABG pH ABG pCO2 ABG pO2 ABG HCO3 ABG Total CO2 ABG O2 Saturation ABG Base Excess FiO2 Sodium 144 Potassium 3.6 Chloride 106 Carbon Dioxide 30 Anion Gap 11.6 BUN 28 H Creatinine 1.20 GFR Calculation 85 BUN/Creatinine Ratio 23.00 H Glucose 134 H POC Glucose 119 H 129 H Calculated Osmolality 293.8 Calcium 8.7 Magnesium 2.3 06/28/16 06/29/16 06/29/16 23:37 05:45 08:45 WBC RBC Hgb Hct MCV MCH MCHC RDW Plt Count MPV Neut % (Auto) Lymph % (Auto) [place] % (Auto) Eos % (Auto) Baso % (Auto) Neut # (Auto) Lymph # (Auto) [place] # (Auto) Eos # (Auto) Baso # (Auto) Total Counted Immature Gran % Nucleated RBC % Immature Gran # Segmented Neutrophils Band Neutrophils Lymphocytes Monocytes Eosinophils Myelocytes Nucleated RBCs # Platelet Estimate Hypochromasia Macrocytosis ABG pH 7.490 H ABG pCO2 37.4 ABG pO2 93.7 ABG HCO3 28.9 H ABG Total CO2 26.1 ABG O2 Saturation 98.1 ABG Base Excess 5.0 H FiO2 50.00 Sodium Potassium Chloride Carbon Dioxide Anion Gap BUN Creatinine GFR Calculation BUN/Creatinine Ratio Glucose POC Glucose 115 H 118 H Calculated Osmolality Calcium Magnesium 06/29/16 06/29/16 Unknown Unknown WBC 6.8 RBC 2.75 L Hgb 8.7 L Hct 27.2 L MCV 98.9 MCH 32 MCHC 32.0 RDW 18.1 H Plt Count 130 MPV 12.0 Neut % (Auto) 56.1 Lymph % (Auto) 19.0 L [place] % (Auto) 15.4 H Eos % (Auto) 3.4 Baso % (Auto) 0.6 Neut # (Auto) 3.8 Lymph # (Auto) 1.3 L [place] # (Auto) 1.0 H Eos # (Auto) 0.2 Baso # (Auto) 0.0 Total Counted 100 Immature Gran % 5.5 Nucleated RBC % 0.0 Immature Gran # 0.37 Segmented Neutrophils 62 Band Neutrophils 1 Lymphocytes 19 L Monocytes 14 Eosinophils 3 Myelocytes 1 Nucleated RBCs # 0.00 Platelet Estimate Adequate Hypochromasia 1+ Macrocytosis 1+ ABG pH ABG pCO2 ABG pO2 ABG HCO3 ABG Total CO2 ABG O2 Saturation ABG Base Excess FiO2 Sodium 144 Potassium 3.3 L Chloride 105 Carbon Dioxide 29 Anion Gap 13.3 BUN 31 H Creatinine 1.20 GFR Calculation 85 BUN/Creatinine Ratio 25.00 H Glucose 127 H POC Glucose Calculated Osmolality 294.8 Calcium 8.9 Magnesium 1.9 - EKG EKG results: interpreted by me (atrial pacing with what appears to be underlying sinus rhythm) Quality Measures - VTE Contraindication to Pharmacological VTE Prophylaxis: Active Bleeding <Kari Garcia - Last Filed: 06/29/16 13:23> Cardiology - PN: Subj Interval history: I have personally interviewed and evaluated the patient, reviewed the chart and discussed medical decision-making with practitioner Parvez. I have read this note and agree with her documentation here in. On the ECG, he has an atrial paced rhythm and it is difficult to determine whether or not he has underlying atrial fibrillation. Regardless, his rates are well controlled on current regimen. He really is not a candidate this point for cardioversion because he is well-controlled and is not an anticoagulant candidate. We will continue with supportive care. Hemodynamics are improved. Exam (Progress Note) - Constitutional Vitals: Period Temp Pulse Resp BP Sys/Mcbride Pulse Ox Last 24 Hr 97.4 F-98.8 F 60-92 15-37 72-145/40-98 95-100 Result/EKG - Labs CBC & BMP: 06/29/16 Unknown 06/29/16 Unknown Labs: Laboratory Results - last 24 hr 06/28/16 06/28/16 06/29/16 17:13 23:37 05:45 WBC RBC Hgb Hct MCV MCH MCHC RDW Plt Count MPV Neut % (Auto) Lymph % (Auto) [place] % (Auto) Eos % (Auto) Baso % (Auto) Neut # (Auto) Lymph # (Auto) [place] # (Auto) Eos # (Auto) Baso # (Auto) Total Counted Immature Gran % Nucleated RBC % Immature Gran # Segmented Neutrophils Band Neutrophils Lymphocytes Monocytes Eosinophils Myelocytes Nucleated RBCs # Platelet Estimate Hypochromasia Macrocytosis ABG pH ABG pCO2 ABG pO2 ABG HCO3 ABG Total CO2 ABG O2 Saturation ABG Base Excess FiO2 Sodium Potassium Chloride Carbon Dioxide Anion Gap BUN Creatinine GFR Calculation BUN/Creatinine Ratio Glucose POC Glucose 129 H 115 H 118 H Calculated Osmolality Calcium Magnesium 06/29/16 06/29/16 06/29/16 08:45 Unknown Unknown WBC 6.8 RBC 2.75 L Hgb 8.7 L Hct 27.2 L MCV 98.9 MCH 32 MCHC 32.0 RDW 18.1 H Plt Count 130 MPV 12.0 Neut % (Auto) 56.1 Lymph % (Auto) 19.0 L [place] % (Auto) 15.4 H Eos % (Auto) 3.4 Baso % (Auto) 0.6 Neut # (Auto) 3.8 Lymph # (Auto) 1.3 L [place] # (Auto) 1.0 H Eos # (Auto) 0.2 Baso # (Auto) 0.0 Total Counted 100 Immature Gran % 5.5 Nucleated RBC % 0.0 Immature Gran # 0.37 Segmented Neutrophils 62 Band Neutrophils 1 Lymphocytes 19 L Monocytes 14 Eosinophils 3 Myelocytes 1 Nucleated RBCs # 0.00 Platelet Estimate Adequate Hypochromasia 1+ Macrocytosis 1+ ABG pH 7.490 H ABG pCO2 37.4 ABG pO2 93.7 ABG HCO3 28.9 H ABG Total CO2 26.1 ABG O2 Saturation 98.1 ABG Base Excess 5.0 H FiO2 50.00 Sodium 144 Potassium 3.3 L Chloride 105 Carbon Dioxide 29 Anion Gap 13.3 BUN 31 H Creatinine 1.20 GFR Calculation 85 BUN/Creatinine Ratio 25.00 H Glucose 127 H POC Glucose Calculated Osmolality 294.8 Calcium 8.9 Magnesium 1.9
[2016-06-29] MEDS: ENOXAPARIN 40 MG/0.4 ML SYRINGE SUBCUT SCH (14:27)
[2016-06-29] MEDS: KETOCONAZOLE 2% SHAMPOO 120 ML BOTTLE TOP SCH (21:35)
[2016-06-30] MEDS: DILTIAZEM 30 MG TABLET PO SCH ×5 (00:20→23:50)
[2016-06-30] MEDS: FAMOTIDINE 20 MG/2 ML VIAL IV SCH ×2 (00:21→23:35)
[2016-06-30] MEDS: METOCLOPRAMIDE 10 MG/2 ML VIAL IV SCH ×5 (00:21→23:31)
[2016-06-30] MEDS: PIPERACILLIN/TAZOBACTAM 3,375 MG in SODIUM CHLORIDE 0.9% 100 ML IV SCH ×4 (00:21→23:35)
[2016-06-30] MEDS: INSULIN REGULAR 100 UNIT/ML SUBCUT SCH ×5 (00:27→23:33)
[2016-06-30] MEDS: ALBUTEROL/IPRATROPIUM 3 ML NEB RESP TX SCH ×4 (00:42→19:55)
[2016-06-30] MEDS: ALBUMIN 25% 25 GM in PREMIX 1 EACH IV SCH ×3 (05:00→22:03)
[2016-06-30 05:11] LABS: Basophils % 0.6 % (0.0-0.8); Eosinophils # 0.3 10*3/uL (0.0-0.87); Eosinophils % 4.3 % (0.00-10.9); Hematocrit 27.8 VOL% (42.0-52.0); Hemoglobin 8.7 GM/DL (14.0-18.0); Immature Granulocytes % 6.2 %; Immature Granulocytes Absolute 0.39 #; Lymphocytes # 1.4 10*3/uL (1.4-4.0); Lymphocytes % 22.3 % (21.2-54.2); Mean Corpuscular HGB Conc 31.3 GM/DL (32-36); Mean Corpuscular Hemoglobin 31 PG (27-34); Mean Corpuscular Volume 99.6 FL (87-102); Mean Platelet Volume 11.6 FL (9.6-12.0); Monocytes # 1.1 10*3/uL (0.11-0.8); Monocytes % 18.2 % (1.7-12.7); Neutrophils % 48.4 % (38.7-73.9); Platelet Count 166 T/CUMM (130-400); Red Blood Count 2.79 MC/CUMM (3.8-5.5); Red Cell Distribution Width 18.3 % (9.3-17.3); White Blood Count 6.3 T/CUMM (4-12)
[2016-06-30 05:34] LABS: Band Neutrophils 2 % (0-10); Eosinophils 2 % (0-10); Lymphocytes 25 % (20-55); Metamyelocytes 2 %; Myelocytes 1 %; Segmented Neutrophils 47 % (50-85); Total Cells Counted 100
[2016-06-30 05:35] LABS: Anisocytosis 2+; Hypochromasia 2+; Macrocytosis 2+; Platelet Estimate Normal; Polychromasia 1+
[2016-06-30 05:37] LABS: Calcium 9.1 MG/DL (8.5-10.1); Magnesium 1.8 MG/DL (1.8-2.4); Osmolality,Calculated 296.6 MOS/KG (273-304); Potassium 3.3 MMOL/L (3.5-5.1)
[2016-06-30] MEDS: LEVOTHYROXINE 75 MCG TABLET PO SCH (06:05)
[2016-06-30] MEDS: POTASSIUM CHLORIDE RIDER 10 MEQ in PREMIX 1 EACH IV PRN ×2 (06:20→10:09)
[2016-06-30] MEDS: MAGNESIUM SULF RIDER 2 GM in PREMIX 1 EACH IV PRN (06:34)
--- NOTE | 2016-06-30 07:54 | Family Practice Progress Note ---
Family Practice - PN: Subj Interval history: Patient had a good night according to nursing staff. Patient is minimally responsive however and does not follow commands this morning. I repeated the CT of his brain which showed no acute abnormality. Is obviously encephalopathic probably from his multiple medical issues and his alcohol issues. I talked to his last night and told her I thought he was going to have to go to a long-term care facility. I think we will have to go to [facility] and/or a retirement. Exam (Progress Note) - Constitutional Vitals: Period Temp Pulse Resp BP Sys/Mcbride Pulse Ox Last 24 Hr 97.4 F-98.8 F 62-91 18-37 84-118/51-71 95-100 Exam: Objectively well-developed white male who is now off the ventilator. He is on BiPAP. He has no verbal response. Cardiovascular: Heart rates irregular with no murmurs or gallops. Respiratory: Lungs clear to auscultation bilaterally. Abdomen: Abdomen soft and nontender to palpation. Neuro: Patient is moving all extremities to painful stimuli Results - Labs CBC & BMP: 06/30/16 04:30 06/30/16 04:30 Lab Results: I have reviewed the past 24 hour labs Assessment and Plan (1) Atrial flutter Status: Chronic Assessment and plan: 06/22/2016: Heart rate still bit elevated and he appears to be in persistent flutter 06/23/2016: Persistent atrial flutter. Current Visit: No (2) Anemia Status: Acute Assessment and plan: 06/22/2016: Hematocrit remained stable. Patient has heme positive stool. Current Visit: Yes (3) Obstructive sleep apnea Problem details: refusing his mask Status: Chronic Assessment and plan: 06/22/2016: Patient apparently refusing to wear his CPAP mask. 06/30/2016: Patient is off the ventilator and is back on his BiPAP. Current Visit: Yes (4) Acute pancreatitis Status: Resolved Assessment and plan: 06/22/2016: Patient's pancreatitis has resolved. Current Visit: Yes Qualifiers: Pancreatitis type: alcohol induced (5) Aspiration pneumonitis Status: Acute Assessment and plan: 06/23/2016: Have ordered 40 of Lasix. Blood cultures have been ordered. Will ask pulmonary to see as well. 06/28/2016: Patient is doing well in the event, is not tolerating weaning and will probably need LTAC. 06/29/2016: Patient is slowly improving. Will consult classification case manager for LTAC. 06/30/2016: Patient is now off the ventilator. He will need long-term care facility. His long-term prognosis is very poor Current Visit: Yes Quality Measures - VTE Contraindication to Pharmacological VTE Prophylaxis: Active Bleeding
[2016-06-30] MEDS: POTASSIUM CHLORIDE RIDER 20 MEQ in PREMIX 1 EACH IV PRN ×2 (08:04→16:48)
--- NOTE | 2016-06-30 08:25 | Pulmonology Progress Note ---
Pulmonary - PN: Subj Interval history: Patient is a 60-year-old white man that is in very poor condition with obesity and chronic liver disease and heart disease. He was having more respiratory distress yesterday and had to be intubated. He was on the ventilator for several days but yesterday he was extubated. He has done fairly well with his breathing although he does require BiPAP at times. He does respond to painful stimuli but is still not very alert. He does have a significant encephalopathy. Otherwise he has been fairly stable. Exam (Progress Note) - Constitutional Vitals: Period Temp Pulse Resp BP Sys/Mcbride Pulse Ox Last 24 Hr 97.4 F-98.8 F 62-91 18-37 84-118/51-71 95-100 Exam: General appearance: no distress (He is grimacing with pain but will not follow commands yet. He is not having any respiratory distress.) - Head Head exam: Present: normal inspection, normocephalic - Eye Eye exam: Present: EOMI. Absent: scleral icterus Pupils: Present: KARLEE - ENT ENT exam: Present: other (Patient has a very narrow hypopharynx) - Neck Neck exam: Present: other (Patient does have a large neck). Absent: lymphadenopathy, thyromegaly - Respiratory Respiratory exam: Present: He has fairly good breath sounds bilaterally is moving air well with just some minimal rhonchi. - Cardiovascular Cardiovascular exam: Present: His heart rate is slightly irregular but controlled rate. - GI/Abdominal GI/Abdominal exam: Present:active bowel sounds, soft, other (Abdomen is large). Absent: organomegaly, tenderness - Extremities Exam Extremities exam: Absent: calf tenderness, edema - Neurological Exam Neurological exam: Present: altered (Patient grimaces with any, painful stimuli but does not follow commands.) - Psychiatric Psychiatric exam: Present: He is lethargic off the ventilator. - Skin Skin exam: Present: warm, dry Results - Labs CBC & BMP: 06/30/16 04:30 06/30/16 04:30 Assessment and Plan (1) NICM (nonischemic cardiomyopathy) Problem details: improved EF per updated ECHO Status: Chronic Assessment and plan: The patient does have cardiomegaly and has had a component of heart failure that is better. Current Visit: Yes (2) Paroxysmal atrial fibrillation Status: Chronic Assessment and plan: The patient continues to require medications for his heart rate. His heart rate is much better today however. Current Visit: Yes (3) Obstructive sleep apnea Problem details: refusing his mask Status: Chronic Assessment and plan: Patient did use BiPAP some last night but has not been very compliant in the past. Current Visit: Yes (4) Alcoholic cirrhosis Status: Acute Assessment and plan: Patient had a bilirubin of 2.9 on last check. Current Visit: Yes (5) Aspiration pneumonitis Status: Acute Assessment and plan: Patient has better oxygenation and his lungs are clearing. He is breathing comfortably off the ventilator and is not having any fever. His white count is down 6300. Overall he is doing better with his pneumonia. Current Visit: Yes
[2016-06-30] MEDS: MIDODRINE 5 MG TABLET PO SCH ×3 (08:27→22:02)
[2016-06-30] MEDS: THIAMINE 200 MG/2 ML VIAL IV SCH (08:27)
[2016-06-30] MEDS: LACTULOSE 20 GM/30 ML UDCUP PO SCH ×2 (08:27→22:02)
[2016-06-30] MEDS: MEGESTROL 400 MG/10 ML UDCUP PO SCH ×2 (08:27→22:02)
[2016-06-30] MEDS: SOTALOL 80 MG TABLET PO SCH ×2 (08:27→22:02)
[2016-06-30] MEDS: PANTOPRAZOLE 40 MG VIAL IV SCH (08:30)
[2016-06-30] MEDS: FUROSEMIDE 40 MG/4 ML VIAL IV SCH ×2 (08:34→15:09)
[2016-06-30] MEDS: NYSTATIN CREAM 15 GM TUBE TOP SCH ×2 (08:37→22:03)
[2016-06-30] MEDS: DESITIN 4OZ/NYSTATIN 15 GRAM MIXTURE PASTE TOP SCH ×2 (08:37→22:03)
--- NOTE | 2016-06-30 08:47 | Cardiology Progress Note ---
<Risa Hannon E - Last Filed: 06/30/16 08:38> Assessment and Plan - Time spent with patient Time spent with patient: Less than 30 minutes (1) Atrial flutter Status: Chronic Assessment and plan: This is being managed with medications currently. He is on a low-dose Lovenox and sotalol. IV cardizem has been changed to PO. He is no longer requiring vasopressor support. He really is not a candidate this point for cardioversion because he is well-controlled and is not an anticoagulant candidate. We will continue with supportive care. Current Visit: No (2) Paroxysmal atrial fibrillation Status: Chronic Assessment and plan: He was previously on aspirin and Eliquis for stroke prevention. These are being held due to his profound anemia. He has required transfusion of 5 units PRBCs this admission, last transfusion on 06/21/2016. He has been started on Lovenox for DVT prophylaxis and stroke protection. He has been in an atrial paced rhythm. Current Visit: Yes (3) CHF (congestive heart failure) Status: Acute Assessment and plan: Echocardiogram 06/16/16 revealed EF 60%, grade I/IV diastolic dysfunction. Probably due to volume issues and his other underlying problems. Overall, this is better. Current Visit: No Qualifiers: Congestive heart failure type: systolic Congestive heart failure chronicity : acute on chronic Qualified Code(s): I50.23 - Acute on chronic systolic ( congestive) heart failure (4) Obstructive sleep apnea Problem details: refusing his mask Status: Chronic Assessment and plan: Noncompliant, refuses CPAP mask. Complicates his overall issues. Current Visit: Yes (5) Hypertension Status: Chronic Assessment and plan: Blood pressures have been up and down. No longer requiring vasopressor support. Will continue to monitor. Current Visit: No (6) Alcoholic cirrhosis Status: Acute Current Visit: Yes (7) Obesity Status: Chronic Current Visit: Yes (8) Alcohol abuse Status: Chronic Assessment and plan: Per Dr. Garcia's notes, the patient's would like for him to go to a treatment center when he is medically stable; however, he may require transfer to [facility] and/or [place] [facility] [place] skilled nursing care. Current Visit: Yes (9) Failure to thrive Status: Chronic Assessment and plan: This is secondary to multiple medical issues and problems. Current Visit: Yes Qualifiers: Failure to thrive age range: in adult Qualified Code(s): R62.7 - Adult failure to thrive (10) Hypotension Status: Acute Assessment and plan: His hypotension is complicated by his multiple medical problems. He is no longer requiring vasopressor support. Will continue to monitor. Current Visit: Yes Qualifiers: Hypotension type: orthostatic hypotension Qualified Code(s): I95.1 - Orthostatic hypotension Cardiology - PN: Subj Interval history: Pelt Inspector: Dr. Drake PCP: Dr. Reyes Mr. Tracy has a history of anxiety, atrial fibrillation, diabetes, hypertension, psoriasis, tachybradycardia syndrome status post dual-chamber pacemaker placement, obstructive sleep apnea (noncompliant), hyperlipidemia, EtOH abuse. He was admitted to the hospital on June 15, 2016 and found to have pancreatitis, liver failure, and hepatorenal syndrome. We have been seeing him for atrial flutter with rapid ventricular response. We have resumed his Sotalol PO. He required IV Cardizem for several days but this has subsequently been changed to PO. He has an atrial paced rhythm with well controlled rate. At this point, he is not really a candidate for cardioversion because he is rate controlled and not an anticoagulation candidate. We will continue with supportive care. He continues to require NG tube with feedings. Patient is minimally responsive and does not follow commands. He will grimace and moan with noxious stimuli. A CT of the brain was repeated yesterday which revealed no acute abnormality. This is thought to be encephalopathy due to his multiple medical issues and alcohol issues. He may require transfer to [facility] and/or a [place] [facility] facility. Exam (Progress Note) - Constitutional Vitals: Period Temp Pulse Resp BP Sys/Mcbride Pulse Ox Last 24 Hr 97.4 F-98.8 F 62-91 18-37 84-118/51-71 95-100 Exam: General appearance: On BiPAP. Obese. no acute distress. - Head Head exam: Present: normal inspection, normocephalic, atraumatic. Absent: hematoma, laceration - Eye Eye exam: Present: EOMI. Absent: conjunctival injection, nystagmus, periorbital swelling, scleral icterus, laceration to eyelids Pupils: Present: PERRL. Absent: constricted, dilated, fixed, irregular, unequal - ENT ENT exam: Present: normal external ear exam. NG tube in place with tube feedings. - Neck Neck exam: Present: normal inspection. Absent: lymphadenopathy, meningismus, tenderness, thyromegaly - Respiratory Respiratory exam: Present: Diffuse rhonchi. Extubated 06/29/16. Absent: accessory muscle use - Cardiovascular Cardiovascular exam: Present: Regular rate and rhythm, atrial pacing per global marketing operations manager with well controlled rate. Absent: gallop, JVD, rubs, murmur - GI/Abdominal GI/Abdominal exam: Present: normal bowel sounds, soft. Absent: distended, firm , guarding, hernia, mass, tenderness, rebound. - Extremities Exam Extremities exam: Present: normal inspection, normal capillary refill. Upper extremity pulses 2+. Lower extremity pulses diminished. Trace bilateral lower extremity edema. Absent: calf tenderness - Back Exam Back exam: Present: Unable to examine due to habitus. Extubated 06/29/16. Patient remains obtunded. - Neurological Exam Neurological exam: Present: Arousable to noxious stimuli. Does not follow commands. No resting or essential tremor. - Skin Skin exam: Present: normal color, warm, dry, intact. Absent: cyanosis, diaphoretic, rash, urticaria Result/EKG - Labs CBC & BMP: 06/30/16 04:30 06/30/16 04:30 Lab Results: I have reviewed the past 24 hour labs Labs: Laboratory Results - last 24 hr 06/29/16 06/29/16 06/29/16 08:45 11:10 17:58 WBC RBC Hgb Hct MCV MCH MCHC RDW Plt Count MPV Neut % (Auto) Lymph % (Auto) Holmes % (Auto) Eos % (Auto) Baso % (Auto) Neut # (Auto) Lymph # (Auto) Holmes # (Auto) Eos # (Auto) Baso # (Auto) Total Counted Immature Gran % Nucleated RBC % Immature Gran # Segmented Neutrophils Band Neutrophils Lymphocytes Monocytes Eosinophils Metamyelocytes Myelocytes Nucleated RBCs # Platelet Estimate Polychromasia Hypochromasia Anisocytosis Macrocytosis ABG pH 7.490 H ABG pCO2 37.4 ABG pO2 93.7 ABG HCO3 28.9 H ABG Total CO2 26.1 ABG O2 Saturation 98.1 ABG Base Excess 5.0 H FiO2 50.00 Sodium Potassium Chloride Carbon Dioxide Anion Gap BUN Creatinine GFR Calculation BUN/Creatinine Ratio Glucose POC Glucose 134 H 137 H Calculated Osmolality Calcium Magnesium 06/29/16 06/29/16 06/29/16 23:50 Unknown Unknown WBC 6.8 RBC 2.75 L Hgb 8.7 L Hct 27.2 L MCV 98.9 MCH 32 MCHC 32.0 RDW 18.1 H Plt Count 130 MPV 12.0 Neut % (Auto) 56.1 Lymph % (Auto) 19.0 L Holmes % (Auto) 15.4 H Eos % (Auto) 3.4 Baso % (Auto) 0.6 Neut # (Auto) 3.8 Lymph # (Auto) 1.3 L Holmes # (Auto) 1.0 H Eos # (Auto) 0.2 Baso # (Auto) 0.0 Total Counted 100 Immature Gran % 5.5 Nucleated RBC % 0.0 Immature Gran # 0.37 Segmented Neutrophils 62 Band Neutrophils 1 Lymphocytes 19 L Monocytes 14 Eosinophils 3 Metamyelocytes Myelocytes 1 Nucleated RBCs # 0.00 Platelet Estimate Adequate Polychromasia Hypochromasia 1+ Anisocytosis Macrocytosis 1+ ABG pH ABG pCO2 ABG pO2 ABG HCO3 ABG Total CO2 ABG O2 Saturation ABG Base Excess FiO2 Sodium 144 Potassium 3.3 L Chloride 105 Carbon Dioxide 29 Anion Gap 13.3 BUN 31 H Creatinine 1.20 GFR Calculation 85 BUN/Creatinine Ratio 25.00 H Glucose 127 H POC Glucose 117 H Calculated Osmolality 294.8 Calcium 8.9 Magnesium 1.9 06/30/16 06/30/16 06/30/16 04:30 04:30 05:34 WBC 6.3 RBC 2.79 L Hgb 8.7 L Hct 27.8 L MCV 99.6 MCH 31 MCHC 31.3 L RDW 18.3 H Plt Count 166 D MPV 11.6 Neut % (Auto) 48.4 Lymph % (Auto) 22.3 Holmes % (Auto) 18.2 H Eos % (Auto) 4.3 Baso % (Auto) 0.6 Neut # (Auto) 3.0 Lymph # (Auto) 1.4 Holmes # (Auto) 1.1 H Eos # (Auto) 0.3 Baso # (Auto) 0.0 Total Counted 100 Immature Gran % 6.2 Nucleated RBC % 0.0 Immature Gran # 0.39 Segmented Neutrophils 47 L Band Neutrophils 2 Lymphocytes 25 Monocytes 21 H Eosinophils 2 Metamyelocytes 2 Myelocytes 1 Nucleated RBCs # 0.00 Platelet Estimate Normal Polychromasia 1+ Hypochromasia 2+ Anisocytosis 2+ Macrocytosis 2+ ABG pH ABG pCO2 ABG pO2 ABG HCO3 ABG Total CO2 ABG O2 Saturation ABG Base Excess FiO2 Sodium 146 H Potassium 3.3 L Chloride 105 Carbon Dioxide 32 Anion Gap 12.3 BUN 28 H Creatinine 1.20 GFR Calculation 85 BUN/Creatinine Ratio 23.00 H Glucose 118 H POC Glucose 119 H Calculated Osmolality 296.6 Calcium 9.1 Magnesium 1.8 - EKG EKG results: interpreted by me (atrial pacing) Quality Measures - VTE Contraindication to Pharmacological VTE Prophylaxis: Active Bleeding <Kari Garcia - Last Filed: 06/30/16 16:54> Cardiology - PN: Subj Interval history: I have personally interviewed and evaluated the patient, reviewed the chart and discussed medical decision-making with practitioner Parvez. I have read this note and agree with her documentation here in. Exam (Progress Note) - Constitutional Vitals: Period Temp Pulse Resp BP Sys/Mcbride Pulse Ox Last 24 Hr 97.1 F-98.8 F 63-91 16-30 84-118/51-71 94-100 Result/EKG - Labs CBC & BMP: 06/30/16 04:30 06/30/16 15:30 Labs: Laboratory Results - last 24 hr 06/29/16 06/29/16 06/30/16 17:58 23:50 04:30 WBC 6.3 RBC 2.79 L Hgb 8.7 L Hct 27.8 L MCV 99.6 MCH 31 MCHC 31.3 L RDW 18.3 H Plt Count 166 D MPV 11.6 Neut % (Auto) 48.4 Lymph % (Auto) 22.3 Holmes % (Auto) 18.2 H Eos % (Auto) 4.3 Baso % (Auto) 0.6 Neut # (Auto) 3.0 Lymph # (Auto) 1.4 Holmes # (Auto) 1.1 H Eos # (Auto) 0.3 Baso # (Auto) 0.0 Total Counted 100 Immature Gran % 6.2 Nucleated RBC % 0.0 Immature Gran # 0.39 Segmented Neutrophils 47 L Band Neutrophils 2 Lymphocytes 25 Monocytes 21 H Eosinophils 2 Metamyelocytes 2 Myelocytes 1 Nucleated RBCs # 0.00 Platelet Estimate Normal Polychromasia 1+ Hypochromasia 2+ Anisocytosis 2+ Macrocytosis 2+ Sodium Potassium Chloride Carbon Dioxide Anion Gap BUN Creatinine GFR Calculation BUN/Creatinine Ratio Glucose POC Glucose 137 H 117 H Calculated Osmolality Calcium Magnesium 06/30/16 06/30/16 06/30/16 04:30 05:34 11:41 WBC RBC Hgb Hct MCV MCH MCHC RDW Plt Count MPV Neut % (Auto) Lymph % (Auto) Holmes % (Auto) Eos % (Auto) Baso % (Auto) Neut # (Auto) Lymph # (Auto) Holmes # (Auto) Eos # (Auto) Baso # (Auto) Total Counted Immature Gran % Nucleated RBC % Immature Gran # Segmented Neutrophils Band Neutrophils Lymphocytes Monocytes Eosinophils Metamyelocytes Myelocytes Nucleated RBCs # Platelet Estimate Polychromasia Hypochromasia Anisocytosis Macrocytosis Sodium 146 H Potassium 3.3 L Chloride 105 Carbon Dioxide 32 Anion Gap 12.3 BUN 28 H Creatinine 1.20 GFR Calculation 85 BUN/Creatinine Ratio 23.00 H Glucose 118 H POC Glucose 119 H 127 H Calculated Osmolality 296.6 Calcium 9.1 Magnesium 1.8 06/30/16 15:30 WBC RBC Hgb Hct MCV MCH MCHC RDW Plt Count MPV Neut % (Auto) Lymph % (Auto) Holmes % (Auto) Eos % (Auto) Baso % (Auto) Neut # (Auto) Lymph # (Auto) Holmes # (Auto) Eos # (Auto) Baso # (Auto) Total Counted Immature Gran % Nucleated RBC % Immature Gran # Segmented Neutrophils Band Neutrophils Lymphocytes Monocytes Eosinophils Metamyelocytes Myelocytes Nucleated RBCs # Platelet Estimate Polychromasia Hypochromasia Anisocytosis Macrocytosis Sodium Potassium 3.8 Chloride Carbon Dioxide Anion Gap BUN Creatinine GFR Calculation BUN/Creatinine Ratio Glucose POC Glucose Calculated Osmolality Calcium Magnesium
[2016-06-30] MEDS: ENOXAPARIN 40 MG/0.4 ML SYRINGE SUBCUT SCH (15:09)
--- NOTE | 2016-06-30 17:38 | Sleep Medicine Progress Note ---
Assessment and Plan (1) Obstructive sleep apnea Problem details: refusing his mask Status: Chronic Assessment and plan: We will continue present therapy with CPAP auto and follow-up downloaded response. Current Visit: Yes (2) Hypertension Status: Chronic Current Visit: No (3) Systolic congestive heart failure Status: Chronic Current Visit: No Qualifiers: Qualified Code(s): I50.20 - Unspecified systolic (congestive) heart failure Sleep Medicine Subjective Interval history: Patient had been seen earlier in his hospital course were regarding his prior history of obstructive sleep apnea. He had been encephalopathic and very agitated and was noncompliant with CPAP. He is gotten more encephalopathic recently and has become more compliant with CPAP. Primary service alerted sleep medicine of his usage of CPAP. We will check downloads. He does seem to be doing better on CPAP and would continue present treatment. Exam (Progress Note) - Constitutional Vitals: Period Temp Pulse Resp BP Sys/Mcbride Pulse Ox Last 24 Hr 97.1 F-98.8 F 63-91 16-30 84-118/51-71 94-100 Exam: Remains poorly responsive. Neck is very large and supple chest with fair air movement without significant wheeze or rhonchi. Cardiac exam reveals a regular rhythm without murmur or gallop. Abdomen obese nontender without palpable hepatosplenomegaly. Extremities with some edema. Neurologically, he was poorly responsive. Results - Labs CBC & BMP: 06/30/16 04:30 06/30/16 15:30 Lab Results: I have reviewed the past 24 hour labs
[2016-07-01] MEDS: ALBUTEROL/IPRATROPIUM 3 ML NEB RESP TX SCH ×4 (00:07→20:13)
[2016-07-01] MEDS ORDERED: ALBUTEROL/IPRATROPIUM 3 ML NEB RESP TX ONE (02:04)
[2016-07-01 03:07] LABS: ABG Base Excess 8.5 MMOL/L (-2.5-2.5); ABG HCO3 33.7 MMOL/L (20-26); ABG Oxygen Saturation 97.4 % (95-100); ABG PCO2 50.7 MM HG (35-48); ABG PH 7.441 (7.35-7.45); ABG PO2 106.3 MM HG (80-95); ABG TCO2 35.3 MMOL/L (23-27); Pt O2 Delivery Device CPAP
[2016-07-01] MEDS: DILTIAZEM 30 MG TABLET PO SCH ×3 (05:41→17:32)
[2016-07-01] MEDS: METOCLOPRAMIDE 10 MG/2 ML VIAL IV SCH ×3 (05:41→17:32)
[2016-07-01] MEDS: ALBUMIN 25% 25 GM in PREMIX 1 EACH IV SCH ×3 (05:49→22:59)
[2016-07-01 05:51] LABS: Basophils # 0.1 10*3/uL (0.0-0.2); Eosinophils # 0.3 10*3/uL (0.0-0.87); Eosinophils % 3.9 % (0.00-10.9); Hematocrit 28.8 VOL% (42.0-52.0); Hemoglobin 8.9 GM/DL (14.0-18.0); Immature Granulocytes % 5.6 %; Lymphocytes # 1.6 10*3/uL (1.4-4.0); Lymphocytes % 22.4 % (21.2-54.2); Mean Corpuscular HGB Conc 30.9 GM/DL (32-36); Mean Corpuscular Hemoglobin 31 PG (27-34); Mean Platelet Volume 11.2 FL (9.6-12.0); Monocytes # 1.4 10*3/uL (0.11-0.8); Monocytes % 18.9 % (1.7-12.7); Neutrophils # 3.5 10*3/uL (1.4-7.4); Neutrophils % 48.2 % (38.7-73.9); Platelet Count 233 T/CUMM (130-400); Red Blood Count 2.88 MC/CUMM (3.8-5.5); Red Cell Distribution Width 18.5 % (9.3-17.3); White Blood Count 7.2 T/CUMM (4-12)
[2016-07-01] MEDS: INSULIN REGULAR 100 UNIT/ML SUBCUT SCH ×3 (05:56→18:13)
[2016-07-01] MEDS: LEVOTHYROXINE 75 MCG TABLET PO SCH (06:01)
--- NOTE | 2016-07-01 06:13 | XRay Report ---
XR chest 1V portable Indication: Shortness of breath; dyspnea. Comparison: Chest x-ray 06/29/2016 Technique: Portable AP chest was performed. Findings: NG tube remains present. The esophagogastric tube is no longer identified and appears to have been removed. Homogeneous density within the left cardiophrenic angle suggesting left lower lobe atelectasis is stable. Minimal left-sided pleural effusion is not excluded. Improved visualization of the right hemidiaphragm is noted. Central vascular prominence is stable. Bones and soft tissues are stable. Impression: 1. Total atelectasis left lower lobe is suggested and appears stable. 2. Interval extubation. 3. Improved aeration right lung base. 4. Crowding versus pulmonary venous hypertensive changes are suggested. 07/01/2016 6:09 AM PROCEDURE INTERPRETED AT [facility] DEPARTMENT OF RADIOLOGY Final Report Signed by: Dr. Terry Diaz
[2016-07-01 06:20] LABS: Eosinophils 6 % (0-10); Hypochromasia 1+; Lymphocytes 27 % (20-55); Macrocytosis 1+; Segmented Neutrophils 48 % (50-85); Total Cells Counted 100
[2016-07-01 06:21] LABS: Platelet Estimate Normal
[2016-07-01 06:33] LABS: Calcium 9.6 MG/DL (8.5-10.1); Magnesium 2.2 MG/DL (1.8-2.4); Potassium 3.9 MMOL/L (3.5-5.1)
[2016-07-01] MEDS: POTASSIUM CHLORIDE RIDER 20 MEQ in PREMIX 1 EACH IV PRN (06:42)
--- NOTE | 2016-07-01 07:15 | Pulmonology Progress Note ---
Pulmonary - PN: Subj Interval history: Patient is a 60-year-old white man that is in very poor condition with obesity and chronic liver disease and heart disease. He was having more respiratory distress yesterday and had to be intubated. He was on the ventilator for several days but yesterday he was extubated. He has been breathing fairly well but he does require some suctioning. He does have a poor cough. He is still poorly responsive and is very weak and cannot do much activity. He did use CPAP during the night and rested reasonably well. His O2 saturations are adequate and he looks comfortable this morning. Exam (Progress Note) - Constitutional Vitals: Period Temp Pulse Resp BP Sys/Mcbride Pulse Ox Last 24 Hr 97.1 F-99.1 F 60-87 16-33 98-131/52-75 94-99 Exam: General appearance: no distress (He is grimacing with pain but will not follow commands yet. He is not having any respiratory distress. He has been comfortable on CPAP.) - Head Head exam: Present: normal inspection, normocephalic - Eye Eye exam: Present: EOMI. Absent: scleral icterus Pupils: Present: KARLEE - ENT ENT exam: Present: other (Patient has a very narrow hypopharynx) he does have an NG tube in place. - Neck Neck exam: Present: other (Patient does have a large neck). Absent: lymphadenopathy, thyromegaly - Respiratory Respiratory exam: Present: He has fairly good breath sounds bilaterally is moving air well with just some minimal rhonchi. - Cardiovascular Cardiovascular exam: Present: His heart rate is fairly regular rhythm with no murmur or gallop. - GI/Abdominal GI/Abdominal exam: Present:active bowel sounds, soft, other (Abdomen is large). Absent: organomegaly, tenderness - Extremities Exam Extremities exam: Absent: calf tenderness, edema - Neurological Exam Neurological exam: Present: altered (Patient grimaces with any, painful stimuli but does not follow commands.) - Psychiatric Psychiatric exam: Present: He is lethargic off the ventilator. - Skin Skin exam: Present: warm, dry Results - Labs CBC & BMP: 07/01/16 05:35 07/01/16 05:35 Labs: His PO2 is 106 with a PCO2 of 50 and a pH of 7.44 - Diagnostic Findings Procedure: Chest x-ray: image reviewed by me, report reviewed by me (Chest x- ray is better with just some minimal bibasilar atelectasis.) Assessment and Plan (1) NICM (nonischemic cardiomyopathy) Problem details: improved EF per updated ECHO Status: Chronic Assessment and plan: The patient does have cardiomegaly and has had a component of heart failure that is better. Current Visit: Yes (2) Paroxysmal atrial fibrillation Status: Chronic Assessment and plan: The patient continues to require medications for his heart rate. His heart rate is much better today however. Current Visit: Yes (3) Obstructive sleep apnea Problem details: refusing his mask Status: Chronic Assessment and plan: Patient is using CPAP at night and did fairly well. Current Visit: Yes (4) Alcoholic cirrhosis Status: Acute Assessment and plan: Patient had a bilirubin of 2.9 on last check. Current Visit: Yes (5) Aspiration pneumonitis Status: Acute Assessment and plan: Patient has better oxygenation and his lungs are clearing. He is breathing comfortably off the ventilator and is not having any fever. He does have very poor pulmonary toilet but otherwise is doing okay. His chest x-ray is stable. Current Visit: Yes
--- NOTE | 2016-07-01 07:41 | Family Practice Progress Note ---
Family Practice - PN: Subj Interval history: Patient had a good night according to nursing staff. He continues to be minimally responsive according the nursing staff. He is going to require an LTAC bed and I discussed this with his yesterday. She understands. His prognosis remains very poor. Exam (Progress Note) - Constitutional Vitals: Period Temp Pulse Resp BP Sys/Mcbride Pulse Ox Last 24 Hr 97.1 F-99.1 F 60-87 16-33 98-131/52-75 94-99 Exam: Objectively well-developed white male who is now off the ventilator. He is on BiPAP. He has no verbal response and grimaces to sternal rub.. Cardiovascular: Heart rates irregular with no murmurs or gallops. Respiratory: Lungs clear to auscultation bilaterally. Abdomen: Abdomen soft and nontender to palpation. Neuro: Patient is moving all extremities to painful stimuli Results - Labs CBC & BMP: 07/01/16 05:35 07/01/16 05:35 Lab Results: I have reviewed the past 24 hour labs Assessment and Plan (1) Atrial flutter Status: Chronic Assessment and plan: 06/22/2016: Heart rate still bit elevated and he appears to be in persistent flutter 06/23/2016: Persistent atrial flutter. Current Visit: No (2) Anemia Status: Chronic Assessment and plan: 06/22/2016: Hematocrit remained stable. Patient has heme positive stool. Current Visit: Yes (3) Obstructive sleep apnea Problem details: refusing his mask Status: Chronic Assessment and plan: 06/22/2016: Patient apparently refusing to wear his CPAP mask. 06/30/2016: Patient is off the ventilator and is back on his BiPAP. 07/01/2016: Patient is tolerating BiPAP. Current Visit: Yes (4) Acute pancreatitis Status: Resolved Assessment and plan: 06/22/2016: Patient's pancreatitis has resolved. Current Visit: Yes Qualifiers: Pancreatitis type: alcohol induced (5) Aspiration pneumonitis Status: Acute Assessment and plan: 06/23/2016: Have ordered 40 of Lasix. Blood cultures have been ordered. Will ask pulmonary to see as well. 06/28/2016: Patient is doing well in the event, is not tolerating weaning and will probably need LTAC. 06/29/2016: Patient is slowly improving. Will consult case work aide for LTAC. 06/30/2016: Patient is now off the ventilator. He will need long-term care facility. His long-term prognosis is very poor 07/01/2016: Patient's chest x-ray is improved this morning. Patient will require LTAC. Current Visit: Yes Quality Measures - VTE Contraindication to Pharmacological VTE Prophylaxis: Active Bleeding
--- NOTE | 2016-07-01 07:49 | EKG Report ---
Stationary ECG Study 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
[2016-07-01] MEDS: MEGESTROL 400 MG/10 ML UDCUP PO SCH ×2 (08:20→21:30)
[2016-07-01] MEDS: SOTALOL 80 MG TABLET PO SCH ×2 (08:20→21:30)
[2016-07-01] MEDS: MIDODRINE 5 MG TABLET PO SCH ×3 (08:20→21:30)
[2016-07-01] MEDS: LACTULOSE 20 GM/30 ML UDCUP PO SCH ×2 (08:20→21:31)
[2016-07-01] MEDS: PIPERACILLIN/TAZOBACTAM 3,375 MG in SODIUM CHLORIDE 0.9% 100 ML IV SCH ×2 (08:21→15:30)
[2016-07-01] MEDS: FUROSEMIDE 40 MG/4 ML VIAL IV SCH ×2 (08:21→15:30)
[2016-07-01] MEDS: PANTOPRAZOLE 40 MG VIAL IV SCH (08:39)
[2016-07-01] MEDS: THIAMINE 200 MG/2 ML VIAL IV SCH (08:40)
[2016-07-01] MEDS: NYSTATIN CREAM 15 GM TUBE TOP SCH ×2 (08:42→21:31)
[2016-07-01] MEDS: DESITIN 4OZ/NYSTATIN 15 GRAM MIXTURE PASTE TOP SCH ×2 (08:42→21:31)
--- NOTE | 2016-07-01 12:34 | Sleep Medicine Progress Note ---
Assessment and Plan (1) Obstructive sleep apnea Problem details: refusing his mask Status: Chronic Assessment and plan: Patient does seem to be doing better with CPAP with his encephalopathy. We will continue present treatment. Sleep medicine will be available if needed. He seems to be doing well on his current CPAP prescription. Current Visit: Yes (2) Hypertension Status: Chronic Current Visit: No (3) Systolic congestive heart failure Status: Chronic Current Visit: No Qualifiers: Qualified Code(s): I50.20 - Unspecified systolic (congestive) heart failure Sleep Medicine Subjective Interval history: Patient remains compliant with his CPAP, but I am afraid is because he so encephalopathic. He is getting good results with current therapy. His average device pressure is about 7. His average AHI is 1.2. He is not having any significant leak with his mask even with an NG tube in. Continue present treatment. Little to offer at this time from sleep standpoint. Will be available if needed. Exam (Progress Note) - Constitutional Vitals: Period Temp Pulse Resp BP Sys/Mcbride Pulse Ox Last 24 Hr 97.2 F-99.1 F 60-87 19-33 100-131/59-75 94-99 Exam: Chest with good air movement and no focal wheeze rhonchi or rales. Cardiac exam reveals regular rhythm without murmur or gallop. Abdomen obese nontender extremities without increased edema. Neurologically, he responds to verbal stimuli with a moan and groan. He did move toes to command today. Results - Labs CBC & BMP: 07/01/16 05:35 07/01/16 05:35 Lab Results: I have reviewed the past 24 hour labs
--- NOTE | 2016-07-01 13:24 | Cardiology Progress Note ---
<Risa Hannon E - Last Filed: 07/01/16 13:20> Assessment and Plan - Time spent with patient Time spent with patient: Less than 30 minutes (1) Atrial flutter Status: Chronic Assessment and plan: This is being managed with medications currently. He is on a low-dose Lovenox and sotalol. IV cardizem has been changed to PO. He is no longer requiring vasopressor support. He really is not a candidate this point for cardioversion because he is well-controlled and is not an anticoagulant candidate. We will continue with supportive care. Current Visit: No (2) Paroxysmal atrial fibrillation Status: Chronic Assessment and plan: He was previously on aspirin and Eliquis for stroke prevention. These are being held due to his profound anemia. He has required transfusion of 5 units PRBCs this admission, last transfusion on 06/21/2016. He has been started on Lovenox for DVT prophylaxis and stroke protection. He has been in an atrial paced rhythm. Current Visit: Yes (3) CHF (congestive heart failure) Status: Acute Assessment and plan: Echocardiogram 06/16/16 revealed EF 60%, grade I/IV diastolic dysfunction. Probably due to volume issues and his other underlying problems. Overall, this is better. Current Visit: No Qualifiers: Congestive heart failure type: systolic Congestive heart failure chronicity : acute on chronic Qualified Code(s): I50.23 - Acute on chronic systolic ( congestive) heart failure (4) Obstructive sleep apnea Problem details: refusing his mask Status: Chronic Assessment and plan: Sleep medicine has seen him. He has previously been noncompliant with CPAP and refused to wear his mask. Complicates his overall issues. Current Visit: Yes (5) Hypertension Status: Chronic Assessment and plan: Blood pressures have been up and down. No longer requiring vasopressor support. Will continue to monitor. Current Visit: No (6) Alcoholic cirrhosis Status: Acute Current Visit: Yes (7) Obesity Status: Chronic Current Visit: Yes (8) Alcohol abuse Status: Chronic Assessment and plan: Per Dr. Garcia's notes, the patient's would like for him to go to a treatment center when he is medically stable; however, he may require transfer to [facility] and/or snf for extermination inspector care. Current Visit: Yes (9) Failure to thrive Status: Chronic Assessment and plan: This is secondary to multiple medical issues and problems. Current Visit: Yes Qualifiers: Failure to thrive age range: in adult Qualified Code(s): R62.7 - Adult failure to thrive (10) Hypotension Status: Acute Assessment and plan: His hypotension is complicated by his multiple medical problems. He is no longer requiring vasopressor support. Will continue to monitor. Current Visit: Yes Qualifiers: Hypotension type: orthostatic hypotension Qualified Code(s): I95.1 - Orthostatic hypotension Cardiology - PN: Subj Interval history: Assistant Housekeeping Manager: Dr. Drake PCP: Dr. Reyes Mr. Tracy has a history of anxiety, atrial fibrillation, diabetes, hypertension, psoriasis, tachybradycardia syndrome status post dual-chamber pacemaker placement, obstructive sleep apnea (noncompliant), hyperlipidemia, EtOH abuse. He was admitted to the hospital on June 15, 2016 and found to have pancreatitis, liver failure, and hepatorenal syndrome. We have been seeing him for atrial flutter with rapid ventricular response. We have resumed his Sotalol PO. He required IV Cardizem for several days but this has subsequently been changed to PO. He has an atrial paced rhythm with well controlled rate. At this point, he is not really a candidate for cardioversion because he is rate controlled and not an anticoagulation candidate. We will continue with supportive care. He continues to require NG tube with feedings. Patient is minimally responsive and does not follow commands. He is a little more alert today but still does not follow command. Recent CT of the brain revealed no acute abnormality. This is thought to be encephalopathy due to his multiple medical issues and alcohol issues. He may require transfer to [facility] and/or a snf. He continues to use CPAP. Exam (Progress Note) - Constitutional Vitals: Period Temp Pulse Resp BP Sys/Mcbride Pulse Ox Last 24 Hr 97.2 F-99.1 F 60-87 19-33 100-131/59-75 94-99 Exam: General appearance: On BiPAP. Obese. no acute distress. - Head Head exam: Present: normal inspection, normocephalic, atraumatic. Absent: hematoma, laceration - Eye Eye exam: Present: EOMI. Absent: conjunctival injection, nystagmus, periorbital swelling, scleral icterus, laceration to eyelids Pupils: Present: PERRL. Absent: constricted, dilated, fixed, irregular, unequal - ENT ENT exam: Present: normal external ear exam. NG tube in place with tube feedings. - Neck Neck exam: Present: normal inspection. Absent: lymphadenopathy, meningismus, tenderness, thyromegaly - Respiratory Respiratory exam: Present: Coarse breath sounds, more clear today. Extubated . Absent: accessory muscle use - Cardiovascular Cardiovascular exam: Present: Regular rate and rhythm, atrial pacing per monitoring specialist with well controlled rate. Absent: gallop, JVD, rubs, murmur - GI/Abdominal GI/Abdominal exam: Present: normal bowel sounds, soft. Absent: distended, firm , guarding, hernia, mass, tenderness, rebound. - Extremities Exam Extremities exam: Present: normal inspection, normal capillary refill. Upper extremity pulses 2+. Lower extremity pulses diminished. Trace bilateral lower extremity edema. Absent: calf tenderness - Back Exam Back exam: Present: Unable to examine due to habitus. Extubated 06/29/16. Patient remains obtunded. - Neurological Exam Neurological exam: Present: Arousable to verbal stimuli. Does not follow commands. No resting or essential tremor. - Skin Skin exam: Present: normal color, warm, dry, intact. Absent: cyanosis, diaphoretic, rash, urticaria Result/EKG - Labs CBC & BMP: 07/01/16 05:35 07/01/16 05:35 Lab Results: I have reviewed the past 24 hour labs Labs: Laboratory Results - last 24 hr 06/30/16 06/30/16 06/30/16 15:30 17:55 23:31 WBC RBC Hgb Hct MCV MCH MCHC RDW Plt Count MPV Neut % (Auto) Lymph % (Auto) [place] % (Auto) Eos % (Auto) Baso % (Auto) Neut # (Auto) Lymph # (Auto) [place] # (Auto) Eos # (Auto) Baso # (Auto) Total Counted Immature Gran % Nucleated RBC % Immature Gran # Segmented Neutrophils Lymphocytes Monocytes Eosinophils Basophils Nucleated RBCs # Platelet Estimate Hypochromasia Macrocytosis ABG pH ABG pCO2 ABG pO2 ABG HCO3 ABG Total CO2 ABG O2 Saturation ABG Base Excess FiO2 Sodium Potassium 3.8 Chloride Carbon Dioxide Anion Gap BUN Creatinine GFR Calculation BUN/Creatinine Ratio Glucose POC Glucose 152 H 128 H Calculated Osmolality Calcium Magnesium 07/01/16 07/01/16 07/01/16 02:20 05:35 05:35 WBC 7.2 RBC 2.88 L Hgb 8.9 L Hct 28.8 L MCV 100.0 MCH 31 MCHC 30.9 L RDW 18.5 H Plt Count 233 D MPV 11.2 Neut % (Auto) 48.2 Lymph % (Auto) 22.4 Kent % (Auto) 18.9 H Eos % (Auto) 3.9 Baso % (Auto) 1.0 H Neut # (Auto) 3.5 Lymph # (Auto) 1.6 Kent # (Auto) 1.4 H Eos # (Auto) 0.3 Baso # (Auto) 0.1 Total Counted 100 Immature Gran % 5.6 Nucleated RBC % 0.0 Immature Gran # 0.40 Segmented Neutrophils 48 L Lymphocytes 27 Monocytes 18 H Eosinophils 6 Basophils 1.0 H Nucleated RBCs # 0.00 Platelet Estimate Normal Hypochromasia 1+ Macrocytosis 1+ ABG pH 7.441 ABG pCO2 50.7 H ABG pO2 106.3 H ABG HCO3 33.7 H ABG Total CO2 35.3 H ABG O2 Saturation 97.4 ABG Base Excess 8.5 H FiO2 60.00 Sodium 143 Potassium 3.9 Chloride 103 Carbon Dioxide 31 Anion Gap 12.9 BUN 31 H Creatinine 1.20 GFR Calculation 84 BUN/Creatinine Ratio 25.00 H Glucose 131 H POC Glucose Calculated Osmolality 293.0 Calcium 9.6 Magnesium 2.2 07/01/16 07/01/16 05:55 11:09 WBC RBC Hgb Hct MCV MCH MCHC RDW Plt Count MPV Neut % (Auto) Lymph % (Auto) [place] % (Auto) Eos % (Auto) Baso % (Auto) Neut # (Auto) Lymph # (Auto) Kent # (Auto) Eos # (Auto) Baso # (Auto) Total Counted Immature Gran % Nucleated RBC % Immature Gran # Segmented Neutrophils Lymphocytes Monocytes Eosinophils Basophils Nucleated RBCs # Platelet Estimate Hypochromasia Macrocytosis ABG pH ABG pCO2 ABG pO2 ABG HCO3 ABG Total CO2 ABG O2 Saturation ABG Base Excess FiO2 Sodium Potassium Chloride Carbon Dioxide Anion Gap BUN Creatinine GFR Calculation BUN/Creatinine Ratio Glucose POC Glucose 122 H 145 H Calculated Osmolality Calcium Magnesium - EKG EKG results: interpreted by me (atrial paced) Quality Measures - VTE Contraindication to Pharmacological VTE Prophylaxis: Active Bleeding <Kari Garcia - Last Filed: 07/01/16 16:59> Cardiology - PN: Subj Interval history: I have personally interviewed and evaluated the patient, reviewed the chart and discussed medical decision-making with practitioner Parvez. I have read this note and agree with her documentation here in. Patient is in sinus rhythm. Exam (Progress Note) - Constitutional Vitals: Period Temp Pulse Resp BP Sys/Mcbride Pulse Ox Last 24 Hr 98.1 F-99.1 F 60-87 19-33 94-122/57-75 94-99 Result/EKG - Labs CBC & BMP: 07/01/16 05:35 07/01/16 05:35 Labs: Laboratory Results - last 24 hr 06/30/16 06/30/16 07/01/16 17:55 23:31 02:20 WBC RBC Hgb Hct MCV MCH MCHC RDW Plt Count MPV Neut % (Auto) Lymph % (Auto) [place] % (Auto) Eos % (Auto) Baso % (Auto) Neut # (Auto) Lymph # (Auto) [place] # (Auto) Eos # (Auto) Baso # (Auto) Total Counted Immature Gran % Nucleated RBC % Immature Gran # Segmented Neutrophils Lymphocytes Monocytes Eosinophils Basophils Nucleated RBCs # Platelet Estimate Hypochromasia Macrocytosis ABG pH 7.441 ABG pCO2 50.7 H ABG pO2 106.3 H ABG HCO3 33.7 H ABG Total CO2 35.3 H ABG O2 Saturation 97.4 ABG Base Excess 8.5 H FiO2 60.00 Sodium Potassium Chloride Carbon Dioxide Anion Gap BUN Creatinine GFR Calculation BUN/Creatinine Ratio Glucose POC Glucose 152 H 128 H Calculated Osmolality Calcium Magnesium 07/01/16 07/01/16 07/01/16 05:35 05:35 05:55 WBC 7.2 RBC 2.88 L Hgb 8.9 L Hct 28.8 L MCV 100.0 MCH 31 MCHC 30.9 L RDW 18.5 H Plt Count 233 D MPV 11.2 Neut % (Auto) 48.2 Lymph % (Auto) 22.4 Kent % (Auto) 18.9 H Eos % (Auto) 3.9 Baso % (Auto) 1.0 H Neut # (Auto) 3.5 Lymph # (Auto) 1.6 Kent # (Auto) 1.4 H Eos # (Auto) 0.3 Baso # (Auto) 0.1 Total Counted 100 Immature Gran % 5.6 Nucleated RBC % 0.0 Immature Gran # 0.40 Segmented Neutrophils 48 L Lymphocytes 27 Monocytes 18 H Eosinophils 6 Basophils 1.0 H Nucleated RBCs # 0.00 Platelet Estimate Normal Hypochromasia 1+ Macrocytosis 1+ ABG pH ABG pCO2 ABG pO2 ABG HCO3 ABG Total CO2 ABG O2 Saturation ABG Base Excess FiO2 Sodium 143 Potassium 3.9 Chloride 103 Carbon Dioxide 31 Anion Gap 12.9 BUN 31 H Creatinine 1.20 GFR Calculation 84 BUN/Creatinine Ratio 25.00 H Glucose 131 H POC Glucose 122 H Calculated Osmolality 293.0 Calcium 9.6 Magnesium 2.2 07/01/16 11:09 WBC RBC Hgb Hct MCV MCH MCHC RDW Plt Count MPV Neut % (Auto) Lymph % (Auto) [place] % (Auto) Eos % (Auto) Baso % (Auto) Neut # (Auto) Lymph # (Auto) [place] # (Auto) Eos # (Auto) Baso # (Auto) Total Counted Immature Gran % Nucleated RBC % Immature Gran # Segmented Neutrophils Lymphocytes Monocytes Eosinophils Basophils Nucleated RBCs # Platelet Estimate Hypochromasia Macrocytosis ABG pH ABG pCO2 ABG pO2 ABG HCO3 ABG Total CO2 ABG O2 Saturation ABG Base Excess FiO2 Sodium Potassium Chloride Carbon Dioxide Anion Gap BUN Creatinine GFR Calculation BUN/Creatinine Ratio Glucose POC Glucose 145 H Calculated Osmolality Calcium Magnesium
[2016-07-01] MEDS: ENOXAPARIN 40 MG/0.4 ML SYRINGE SUBCUT SCH (14:25)
[2016-07-01] MEDS ORDERED: SOTALOL 80 MG TABLET PO ONE (17:19)
[2016-07-01] MEDS ORDERED: DILTIAZEM 50 MG/10 ML VIAL IV ONE ×2 (17:23→17:35)
[2016-07-02] MEDS: FAMOTIDINE 20 MG/2 ML VIAL IV SCH (00:03)
[2016-07-02] MEDS: METOCLOPRAMIDE 10 MG/2 ML VIAL IV SCH ×4 (00:06→17:35)
[2016-07-02] MEDS: INSULIN REGULAR 100 UNIT/ML SUBCUT SCH ×4 (00:07→18:19)
[2016-07-02] MEDS: DILTIAZEM 30 MG TABLET PO SCH ×4 (00:07→17:34)
[2016-07-02] MEDS: PIPERACILLIN/TAZOBACTAM 3,375 MG in SODIUM CHLORIDE 0.9% 100 ML IV SCH ×3 (00:14→16:36)
[2016-07-02] MEDS: ALBUTEROL/IPRATROPIUM 3 ML NEB RESP TX SCH ×4 (01:12→19:10)
[2016-07-02] MEDS: ALBUMIN 25% 25 GM in PREMIX 1 EACH IV SCH ×3 (05:45→21:57)
[2016-07-02] MEDS: LEVOTHYROXINE 75 MCG TABLET PO SCH (06:00)
--- NOTE | 2016-07-02 06:48 | EKG Report ---
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
[2016-07-02 07:42] LABS: Calcium 9.7 MG/DL (8.5-10.1); Magnesium 2.2 MG/DL (1.8-2.4); Potassium 4.1 MMOL/L (3.5-5.1)
[2016-07-02 07:45] LABS: Phosphorous 3.3 MG/DL (2.5-4.9)
[2016-07-02] MEDS: FUROSEMIDE 40 MG/4 ML VIAL IV SCH ×2 (07:54→16:36)
--- NOTE | 2016-07-02 08:01 | Cardiology Progress Note ---
<Risa Hannon E - Last Filed: 07/02/16 07:57> Assessment and Plan - Time spent with patient Time spent with patient: Less than 30 minutes (1) Atrial flutter Status: Chronic Assessment and plan: This is being managed with medications currently. He is on a low-dose Lovenox and sotalol. Yesterday afternoon, he went back into A. fib with RVR and was placed on IV Cardizem once again. This morning, he appears to be in an atrial flutter rhythm. He is still not requiring vasopressor support. Cardioversion has been discussed previously but yesterday morning he was in a sinus rhythm. He has not really a good candidate for cardioversion because he is not an anticoagulation candidate. We will continue with supportive care. Overall, his prognosis is poor. Current Visit: No (2) Paroxysmal atrial fibrillation Status: Chronic Assessment and plan: He was previously on aspirin and Eliquis for stroke prevention. These are being held due to his profound anemia. He has required transfusion of 5 units PRBCs this admission, last transfusion on 06/21/2016. He has been started on Lovenox for DVT prophylaxis and stroke protection. Currently on IV Cardizem with atrial flutter rhythm on alarm security or surveillance monitor. Current Visit: Yes (3) CHF (congestive heart failure) Status: Acute Assessment and plan: Echocardiogram 06/16/16 revealed EF 60%, grade I/IV diastolic dysfunction. Probably due to volume issues and his other underlying problems. Current Visit: No Qualifiers: Congestive heart failure type: systolic Congestive heart failure chronicity : acute on chronic Qualified Code(s): I50.23 - Acute on chronic systolic ( congestive) heart failure (4) Obstructive sleep apnea Problem details: refusing his mask Status: Chronic Assessment and plan: Sleep medicine has seen him. He has previously been noncompliant with CPAP and refused to wear his mask. Complicates his overall issues. Current Visit: Yes (5) Hypertension Status: Chronic Assessment and plan: Blood pressures have been up and down. No longer requiring vasopressor support. Will continue to monitor. Current Visit: No (6) Alcoholic cirrhosis Status: Acute Current Visit: Yes (7) Obesity Status: Chronic Current Visit: Yes (8) Alcohol abuse Status: Chronic Assessment and plan: Per Dr. Garcia's notes, the patient's would like for him to go to a treatment center when he is medically stable; however, he may require transfer to [facility] and/or group home for mcfp care. Current Visit: Yes (9) Failure to thrive Status: Chronic Assessment and plan: This is secondary to multiple medical issues and problems. Current Visit: Yes Qualifiers: Failure to thrive age range: in adult Qualified Code(s): R62.7 - Adult failure to thrive (10) Hypotension Status: Acute Assessment and plan: His hypotension is complicated by his multiple medical problems. He is no longer requiring vasopressor support. Will continue to monitor. Current Visit: Yes Qualifiers: Hypotension type: orthostatic hypotension Qualified Code(s): I95.1 - Orthostatic hypotension Cardiology - PN: Subj Interval history: Operations Administrative Assistant: Dr. Drake PCP: Dr. Reyes Mr. Tracy has a history of anxiety, atrial fibrillation, diabetes, hypertension, psoriasis, tachybradycardia syndrome status post dual-chamber pacemaker placement, obstructive sleep apnea (noncompliant), hyperlipidemia, EtOH abuse. He was admitted to the hospital on June 15, 2016 and found to have pancreatitis, liver failure, and hepatorenal syndrome. We have been seeing him for atrial flutter with rapid ventricular response. We have resumed his Sotalol PO. He previously required IV Cardizem for several days and this has subsequently been changed to p.o.; however, yesterday afternoon around 1720, he went back into A. fib with RVR and IV Cardizem was resumed. He currently remains in an atrial flutter rate with rates in the 110s. Yesterday morning, he was in sinus rhythm. We will continue with supportive care. He continues to require NG tube with feedings and is minimally responsive and does not follow commands. CT brain was done several days ago which revealed no acute abnormality. His thought to be encephalopathy due to his multiple medical issues and alcohol issues. Possible transfer to [facility] and/or group home has been discussed with his family. He continues to require CPAP. Exam (Progress Note) - Constitutional Vitals: Period Temp Pulse Resp BP Sys/Mcbride Pulse Ox Last 24 Hr 98 F-98.8 F 65-140 20-32 90-152/54-100 94-100 Exam: General appearance: On BiPAP. Obese. no acute distress. - Head Head exam: Present: normal inspection, normocephalic, atraumatic. Absent: hematoma, laceration - Eye Eye exam: Present: EOMI. Absent: conjunctival injection, nystagmus, periorbital swelling, scleral icterus, laceration to eyelids Pupils: Present: PERRL. Absent: constricted, dilated, fixed, irregular, unequal - ENT ENT exam: Present: normal external ear exam. NG tube in place with tube feedings. - Neck Neck exam: Present: normal inspection. Absent: lymphadenopathy, meningismus, tenderness, thyromegaly - Respiratory Respiratory exam: Present: Rhonchorous breath sounds. Extubated 06/29/16. Absent : accessory muscle use - Cardiovascular Cardiovascular exam: Present: Irregular rate and rhythm, atrial pacing per alarm security or surveillance monitor with well controlled rate. Absent: gallop, JVD, rubs, murmur - GI/Abdominal GI/Abdominal exam: Present: normal bowel sounds, soft. Absent: distended, firm , guarding, hernia, mass, tenderness, rebound. - Extremities Exam Extremities exam: Present: normal inspection, normal capillary refill. Upper extremity pulses 2+. Lower extremity pulses diminished. Trace bilateral lower extremity edema. Absent: calf tenderness - Back Exam Back exam: Present: Unable to examine due to habitus. Extubated 06/29/16. Patient remains obtunded. - Neurological Exam Neurological exam: Present: Arousable to verbal stimuli. Does not follow commands. No resting or essential tremor. - Skin Skin exam: Present: normal color, warm, dry, intact. Absent: cyanosis, diaphoretic, rash, urticaria Result/EKG - Labs CBC & BMP: 07/01/16 05:35 07/02/16 05:28 Lab Results: I have reviewed the past 24 hour labs Labs: Laboratory Results - last 24 hr 07/01/16 07/01/16 07/01/16 11:09 18:12 23:50 Sodium Potassium Chloride Carbon Dioxide Anion Gap BUN Creatinine GFR Calculation BUN/Creatinine Ratio Glucose POC Glucose 145 H 139 H 127 H Calculated Osmolality Calcium Phosphorus Magnesium Prealbumin 07/02/16 07/02/16 07/02/16 05:27 05:28 05:28 Sodium 143 Potassium 4.1 Chloride 102 Carbon Dioxide 31 Anion Gap 14.1 BUN 42 H D Creatinine 1.30 GFR Calculation 76 BUN/Creatinine Ratio 32.00 H Glucose 132 H POC Glucose 124 H Calculated Osmolality 297.0 Calcium 9.7 Phosphorus 3.3 Magnesium 2.2 Prealbumin 12.0 L - EKG EKG results: interpreted by me (Atrial flutter with rapid ventricular response) Quality Measures - VTE Contraindication to Pharmacological VTE Prophylaxis: Active Bleeding <Kari Garcia - Last Filed: 07/02/16 14:31> Cardiology - PN: Subj Interval history: I have personally interviewed and evaluated the patient, reviewed the chart and discussed medical decision-making with practitioner Parvez. I have read this note and agree with her documentation here in. Sotalol has been increased, will follow up the ECG and see if he will convert back to sinus rhythm. Exam (Progress Note) - Constitutional Vitals: Period Temp Pulse Resp BP Sys/Mcbride Pulse Ox Last 24 Hr 97.6 F-98.8 F 60-140 20-27 90-152/54-100 94-100 Result/EKG - Labs CBC & BMP: 07/01/16 05:35 07/02/16 05:28 Labs: Laboratory Results - last 24 hr 07/01/16 07/01/16 07/02/16 18:12 23:50 05:27 Sodium Potassium Chloride Carbon Dioxide Anion Gap BUN Creatinine GFR Calculation BUN/Creatinine Ratio Glucose POC Glucose 139 H 127 H 124 H Calculated Osmolality Calcium Phosphorus Magnesium Prealbumin 07/02/16 07/02/16 07/02/16 05:28 05:28 11:36 Sodium 143 Potassium 4.1 Chloride 102 Carbon Dioxide 31 Anion Gap 14.1 BUN 42 H D Creatinine 1.30 GFR Calculation 76 BUN/Creatinine Ratio 32.00 H Glucose 132 H POC Glucose 147 H Calculated Osmolality 297.0 Calcium 9.7 Phosphorus 3.3 Magnesium 2.2 Prealbumin 12.0 L
--- NOTE | 2016-07-02 08:07 | Pulmonology Progress Note ---
Pulmonary - PN: Subj Interval history: Patient is a 60-year-old white man that is in very poor condition with obesity and chronic liver disease and heart disease. He was having more respiratory distress yesterday and had to be intubated. He was on the ventilator for several days but yesterday he was extubated. He has been breathing fairly well but he does require some suctioning. He had a fairly stable night but he is still quite lethargic. He continues to be extremely weak and has a very poor cough. He did use CPAP during the night and his O2 saturations have been stable. He will continue with the tube feedings and continue supportive care. He certainly is not able to do much. Exam (Progress Note) - Constitutional Vitals: Period Temp Pulse Resp BP Sys/Mcbride Pulse Ox Last 24 Hr 98 F-98.8 F 65-140 20-32 90-152/54-100 94-100 Exam: General appearance: no distress (He arouses a little and grimaces with pain. He is not alert enough to follow commands. He has been comfortable on CPAP.) - Head Head exam: Present: normal inspection, normocephalic - Eye Eye exam: Present: EOMI. Absent: scleral icterus Pupils: Present: KARLEE - ENT ENT exam: Present: other (Patient has a very narrow hypopharynx) he does have an NG tube in place. - Neck Neck exam: Present: other (Patient does have a large neck). Absent: lymphadenopathy, thyromegaly - Respiratory Respiratory exam: Present: He has fairly good breath sounds with bilateral rhonchi and a very weak cough. - Cardiovascular Cardiovascular exam: Present: His heart rate is somewhat rapid with an irregular rhythm. - GI/Abdominal GI/Abdominal exam: Present:active bowel sounds, soft, other (Abdomen is large). Absent: organomegaly, tenderness - Extremities Exam Extremities exam: Absent: calf tenderness, edema, he will move his extremities but is very weak. - Neurological Exam Neurological exam: Present: altered (Patient grimaces with any, painful stimuli but does not follow commands.) - Psychiatric Psychiatric exam: Present: He is lethargic off the ventilator. - Skin Skin exam: Present: warm, dry Results - Labs CBC & BMP: 07/01/16 05:35 07/02/16 05:28 Assessment and Plan (1) NICM (nonischemic cardiomyopathy) Problem details: improved EF per updated ECHO Status: Chronic Assessment and plan: The patient does have cardiomegaly and has had a component of heart failure that is better. He has been reasonably comfortable on CPAP. Current Visit: Yes (2) Paroxysmal atrial fibrillation Status: Chronic Assessment and plan: The patient looks like he is back in atrial fibrillation with increased heart rate. Current Visit: Yes (3) Obstructive sleep apnea Problem details: refusing his mask Status: Chronic Assessment and plan: Patient is using CPAP at night and did fairly well. Current Visit: Yes (4) Alcoholic cirrhosis Status: Acute Assessment and plan: Patient had a bilirubin of 2.9 on last check. He still has a significant encephalopathy. Current Visit: Yes (5) Aspiration pneumonitis Status: Acute Assessment and plan: Patient has been fairly stable off the ventilator but is using CPAP. He still has an extremely weak cough and requires suctioning and respiratory therapy. Current Visit: Yes
[2016-07-02] MEDS: PANTOPRAZOLE 40 MG VIAL IV SCH (08:58)
[2016-07-02] MEDS: THIAMINE 200 MG/2 ML VIAL IV SCH (08:58)
[2016-07-02] MEDS: MEGESTROL 400 MG/10 ML UDCUP PO SCH ×2 (08:58→21:33)
[2016-07-02] MEDS: MIDODRINE 5 MG TABLET PO SCH ×3 (08:59→21:33)
[2016-07-02] MEDS: SOTALOL 80 MG TABLET PO SCH ×2 (08:59→21:33)
[2016-07-02] MEDS: NYSTATIN CREAM 15 GM TUBE TOP SCH ×2 (09:00→21:33)
[2016-07-02] MEDS: LACTULOSE 20 GM/30 ML UDCUP PO SCH ×2 (09:00→21:33)
[2016-07-02] MEDS: DESITIN 4OZ/NYSTATIN 15 GRAM MIXTURE PASTE TOP SCH ×2 (09:00→21:33)
--- NOTE | 2016-07-02 09:26 | Physician Query Form ---
CLICK EDIT DOCUMENT TO SELECT QUERY ANSWER --> OK --> SIGN Sarika Hernández RN Clinical Risk And Insurance Consultant W) [phone] (f) [phone] [email or web address] PROVIDERS: Make your selection(s) from the choices in EACH section by typing an "x" and enter comments in the comment section. Please use your independent medical judgment in providing your response. This request does not imply that any particular answer is desired or expected. CLINICAL INDICATORS: (Providers should not edit this section) Bronchoscopy report states "The bronchopulmonary segments were identified and specimens obtained. The main bronchi are open. The right upper lobe, right middle lobe, right lower lobe are all open. The left upper lobe, lingula, left lower lobe are open. The secretions were frothy and not very purulent looking or very thick. They were washed and cleared and sent for culture." Based on the above, could you clarify the location and type biopsy, if done? TYPE BIOPSY: ( ) Transbronchial needle aspiration ( ) Cell or tissue sample ( x) Fluid sample ( ) Other, please specify ( ) Clinically unable to determine BRONCHIAL: ( x) Bilateral Bronchi, all lobes ( ) Left Main Bronchus ( ) Right Main Bronchus ( ) Left Lower Lobe Bronchus ( ) Left Upper Lobe Bronchus ( ) Right Lower Lobe Bronchus ( ) Right Middle Lobe Bronchus ( ) Right Upper Lobe Bronchus ( ) Bronchial Lingula LUNG: ( x) Bilateral Lungs, all lobes ( ) Left Lung ( ) Right Lung ( ) Left Lower Lobe Lung ( ) Left Upper Lobe Lung ( ) Right Lower Lobe Lung ( ) Right Middle Lobe Lung ( ) Right Upper Lobe Lung ( ) Lung Lingula ( ) Other, please specify: ( ) Clinically unable to determine COMMENTS: Use of terms such as suspected, likely, or probable (associated with a specific diagnosis that is being evaluated, monitored, or treated as if it exists) are acceptable and can be restated in the discharge summary if not ruled out. MTDD
[2016-07-02] MEDS: ENOXAPARIN 40 MG/0.4 ML SYRINGE SUBCUT SCH (14:29)
--- NOTE | 2016-07-02 14:32 | Internal Med Progress Note ---
Assessment and Plan (1) Alcohol abuse Status: Chronic Current Visit: Yes (2) Ascites Status: Chronic Current Visit: Yes Qualifiers: Ascites type: due to alcoholic cirrhosis Qualified Code(s): K70.31 - Alcoholic cirrhosis of liver with ascites (3) Elevated liver enzymes Status: Chronic Current Visit: Yes (4) Failure to thrive Status: Chronic Current Visit: Yes Qualifiers: Failure to thrive age range: in adult Qualified Code(s): R62.7 - Adult failure to thrive (5) Hypotension Status: Resolved Current Visit: Yes Qualifiers: Hypotension type: orthostatic hypotension Qualified Code(s): I95.1 - Orthostatic hypotension (6) NICM (nonischemic cardiomyopathy) Problem details: improved EF per updated ECHO Status: Chronic Current Visit : Yes (7) Obstructive sleep apnea Problem details: refusing his mask Status: Chronic Current Visit: Yes Internal Medicine - PN: Subj Interval history: Mr. Tracy is a 60 year old male patient of Dr. Yair Reyes with history of dilated cardiomyopathy with EF 25%, diastolic dysfunction, sinus tachy debra syndrome with pacemaker placement, DM, liver cirrhosis, alcoholism, hypothyroidism, paroxysmal atrial fibrillation, who presented to ER with profound and worsening weakness. He was found to have pancreatitis, liver failure, and possibly hepatorenal syndrome. He is in renal failure. He reported to ER that he has not been eating/drinking over several days, except for drinking alcohol. He admits to alcoholism as reported by ER. June 25, he is on ventilator support, requiring tube feedings. Still tachycardic. Seeing him again today, July 01, for Dr. Yair Reyes. He is off of ventilator support but requiring CPAP. He appears to be very frail. Failure to thrive. Consult for [facility] is pending. He is in sinus rhythm with well- controlled heart rate. Exam (Progress Note) - Constitutional Vitals: Period Temp Pulse Resp BP Sys/Mcbride Pulse Ox Last 24 Hr 97.6 F-98.8 F 60-140 - 90-152/54-100 94-100 Exam: General appearance: no acute distress - Respiratory Respiratory exam: Present: clear to auscultation bilaterally - Cardiovascular Cardiovascular exam: Present: regular rate and rhythm - GI/Abdominal GI/Abdominal exam: Present: distended - Extremities Exam Extremities exam: Absent: edema - Neurological Exam Neurological exam: Present: somnolent - Psychiatric Psychiatric exam: Present: depressed, flat affect - Skin Skin exam: Present: warm and dry Vitals reviewed. Results - Labs CBC & BMP: 07/01/16 05:35 07/02/16 05:28 Quality Measures - VTE Contraindication to Pharmacological VTE Prophylaxis: Active Bleeding
--- NOTE | 2016-07-02 14:35 | EKG Report ---
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
[2016-07-02] MEDS: KETOCONAZOLE 2% SHAMPOO 120 ML BOTTLE TOP SCH (21:33)
[2016-07-03] MEDS: INSULIN REGULAR 100 UNIT/ML SUBCUT SCH ×4 (00:20→19:03)
[2016-07-03] MEDS: DILTIAZEM 30 MG TABLET PO SCH ×4 (00:20→19:09)
[2016-07-03] MEDS: PIPERACILLIN/TAZOBACTAM 3,375 MG in SODIUM CHLORIDE 0.9% 100 ML IV SCH ×3 (00:21→16:29)
[2016-07-03] MEDS: METOCLOPRAMIDE 10 MG/2 ML VIAL IV SCH ×4 (00:21→19:09)
[2016-07-03] MEDS: FAMOTIDINE 20 MG/2 ML VIAL IV SCH (00:21)
[2016-07-03] MEDS: ALBUTEROL/IPRATROPIUM 3 ML NEB RESP TX SCH ×4 (01:06→19:04)
[2016-07-03 06:25] LABS: Basophils # 0.1 10*3/uL (0.0-0.2); Basophils % 0.9 % (0.0-0.8); Eosinophils # 0.3 10*3/uL (0.0-0.87); Eosinophils % 3.3 % (0.00-10.9); Hematocrit 26.7 VOL% (42.0-52.0); Hemoglobin 8.5 GM/DL (14.0-18.0); Immature Granulocytes % 4.1 %; Immature Granulocytes Absolute 0.32 #; Lymphocytes # 1.5 10*3/uL (1.4-4.0); Lymphocytes % 18.4 % (21.2-54.2); Mean Corpuscular HGB Conc 31.8 GM/DL (32-36); Mean Corpuscular Hemoglobin 31 PG (27-34); Mean Corpuscular Volume 97.8 FL (87-102); Mean Platelet Volume 11.6 FL (9.6-12.0); Monocytes # 1.4 10*3/uL (0.11-0.8); Monocytes % 17.2 % (1.7-12.7); Neutrophils # 4.4 10*3/uL (1.4-7.4); Neutrophils % 56.1 % (38.7-73.9); Platelet Count 279 T/CUMM (130-400); Red Blood Count 2.73 MC/CUMM (3.8-5.5); Red Cell Distribution Width 18.6 % (9.3-17.3); White Blood Count 7.9 T/CUMM (4-12)
--- NOTE | 2016-07-03 06:29 | Pulmonology Progress Note ---
Pulmonary - PN: Subj Interval history: This 60-year-old man has a history of COPD and cirrhosis. He was ventilated for respiratory failure with aspiration pneumonia. He is requiring more oxygen now and is on facemask BiPAP. O2 sats are reasonable. Patient is drowsy but responsive. Exam (Progress Note) - Constitutional Vitals: Period Temp Pulse Resp BP Sys/Mcbride Pulse Ox Last 24 Hr 97.6 F-98.6 F 60-108 20-33 91-123/51-72 91-100 Exam: Patient is responsive on facemask BiPAP. Vital signs are normal. O2 sat 97%. Pupils were reactive. Neck supple. Chest reveals some bilateral rales. Heart normal rate rhythm no murmurs. Abdomen soft no masses. Does have some ascites. Extremities no clubbing or cyanosis trace of edema. Calves nontender Results - Labs CBC & BMP: 07/01/16 05:35 07/02/16 05:28 Lab Results: I have reviewed the past 24 hour labs - Diagnostic Findings Procedure: Chest x-ray: pending Assessment and Plan (1) Systolic congestive heart failure Status: Chronic Assessment and plan: His weight is down. Need to check chemistries and diurese further. Current Visit: No Qualifiers: Qualified Code(s): I50.20 - Unspecified systolic (congestive) heart failure (2) Ascites Status: Chronic Assessment and plan: Little change from before. Due to advanced cirrhosis. Current Visit: Yes Qualifiers: Ascites type: due to alcoholic cirrhosis Qualified Code(s): K70.31 - Alcoholic cirrhosis of liver with ascites (3) Aspiration pneumonitis Status: Acute Assessment and plan: Continuing facemask BiPAP. May require mechanical ventilation again. Watch closely. Current Visit: Yes
[2016-07-03] MEDS: ALBUMIN 25% 25 GM in PREMIX 1 EACH IV SCH ×3 (06:34→22:36)
[2016-07-03] MEDS: LEVOTHYROXINE 75 MCG TABLET PO SCH (06:35)
[2016-07-03 06:56] LABS: Band Neutrophils 3 % (0-10); Eosinophils 4 % (0-10); Lymphocytes 19 % (20-55); Myelocytes 2 %; Segmented Neutrophils 69 % (50-85); Total Cells Counted 100
[2016-07-03 06:57] LABS: Anisocytosis 1+; Hypochromasia 1+
[2016-07-03 06:58] LABS: Platelet Estimate Normal
[2016-07-03 07:02] LABS: Albumin 4.5 G/DL (3.4-5.0); Bilirubin,Direct 0.7 MG/DL (0.0-0.20); Bilirubin,Indirect 0.6 MG/DL (0.0-1.0); Bilirubin,Total 1.3 MG/DL (0.2-1.0); Total Protein 6.5 G/DL (6.4-8.3)
[2016-07-03 07:03] LABS: Calcium 10.1 MG/DL (8.5-10.1); Magnesium 2.5 MG/DL (1.8-2.4)
--- NOTE | 2016-07-03 07:46 | EKG Report ---
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
[2016-07-03] MEDS: FUROSEMIDE 40 MG/4 ML VIAL IV SCH ×2 (08:08→16:29)
[2016-07-03] MEDS: SOTALOL 80 MG TABLET PO SCH ×2 (09:22→21:15)
[2016-07-03] MEDS: NYSTATIN CREAM 15 GM TUBE TOP SCH ×2 (09:23→21:15)
[2016-07-03] MEDS: LACTULOSE 20 GM/30 ML UDCUP PO SCH ×2 (09:23→21:15)
[2016-07-03] MEDS: MEGESTROL 400 MG/10 ML UDCUP PO SCH ×2 (09:23→21:15)
[2016-07-03] MEDS: MIDODRINE 5 MG TABLET PO SCH ×3 (09:23→21:15)
[2016-07-03] MEDS: PANTOPRAZOLE 40 MG VIAL IV SCH (09:24)
[2016-07-03] MEDS: DESITIN 4OZ/NYSTATIN 15 GRAM MIXTURE PASTE TOP SCH ×2 (09:24→21:15)
[2016-07-03] MEDS: THIAMINE 200 MG/2 ML VIAL IV SCH (09:24)
[2016-07-03] MEDS: metOLazone 2.5 MG TABLET PO SCH (09:26)
--- NOTE | 2016-07-03 12:08 | XRay Report ---
Exam: XR chest 1V portable Indication: Respiratory failure Comparison study: 07/01/2016 Findings: Cardiac silhouette is enlarged, similar to prior. Esophagogastric tube travel below the field of view. Right-sided PICC line is in similar position. Left chest pacemaker device and wire leads appear stable. Perihilar and basilar interstitial opacities appear similar to slightly increased from prior. There is no pneumothorax. Osseous structures appear stable Impression: Cardiomegaly with slight worsening of perihilar and basilar opacities may represent worsening atelectasis/infiltrates and trace pleural effusions. Stable position of support tubes and lines. PROCEDURE INTERPRETED AT [facility] DEPARTMENT OF RADIOLOGY Final Report Signed by: Jossue Shane
[2016-07-03] MEDS ORDERED: OXYMETAZOLINE 0.05% NASAL SPRAY 15 ML BOTTLE BOTH NARES PRN (12:20)
[2016-07-03] MEDS: ENOXAPARIN 40 MG/0.4 ML SYRINGE SUBCUT SCH (14:07)
--- NOTE | 2016-07-03 15:33 | Cardiology Progress Note ---
Assessment and Plan (1) Paroxysmal atrial fibrillation Status: Chronic Assessment and plan: He is currently well controlled on the sotalol therapy. He is not anticoagulated due to his anemia and requirement for several blood transfusions during his hospital stay. Current Visit: Yes (2) Hypertension Status: Chronic Current Visit: No (3) Alcohol abuse Status: Chronic Current Visit: Yes (4) Anemia Status: Acute Assessment and plan: Currently stable. He is not on anticoagulation for this reason. Current Visit: Yes (5) Alcoholic cirrhosis Status: Chronic Current Visit: Yes (6) Aspiration pneumonitis Status: Acute Assessment and plan: This is being managed by pulmonology. Current Visit: Yes (7) Respiratory failure Status: Acute Assessment and plan: Currently stable, pulmonology is following. Current Visit: Yes (8) Obesity Status: Chronic Current Visit: Yes (9) Obstructive sleep apnea Problem details: refusing his mask Status: Chronic Current Visit: Yes Cardiology - PN: Subj Interval history: Evening was uneventful. He is in an atrial paced rhythm. He continues to not really have meaningful interaction. Exam (Progress Note) - Constitutional Vitals: Period Temp Pulse Resp BP Sys/Mcbride Pulse Ox Last 24 Hr 97.8 F-98.6 F 60-84 15-33 91-129/55-74 91-100 Exam: General appearance: Obese, no acute distress, on BiPAP - Head Head exam: Present: normal inspection, normocephalic, atraumatic. Absent: hematoma, laceration - Eye Eye exam: Present: Some mild periorbital swelling. Absent: conjunctival injection, scleral icterus, laceration to eyelids Pupils: Present: KARLEE. Absent: constricted, dilated, fixed, irregular, unequal - ENT ENT exam: Present: Patient on BiPAP exam precluding further evaluation. NG tube is in place. - Neck Neck exam: Present: Exam limited by habitus, overall normal inspection. Absent : lymphadenopathy, meningismus, tenderness, thyromegaly - Respiratory Respiratory exam: Present: Exam limited by habitus, overall clear to auscultation bilaterally anteriorly. Absent: accessory muscle use, chest wall tenderness - Cardiovascular Cardiovascular exam: Present: Exam limited by habitus, tense in general distant but overall regular rate and rhythm. Absent: carotid bruit, gallop, JVD, rubs - GI/Abdominal GI/Abdominal exam: Present: Exam limited by habitus, overall normal bowel sounds. Absent: distended, firm, guarding, hernia, mass, tenderness, rebound, soft - Extremities Exam Extremities exam: Present: Mild bilateral lower extremity edema. No clubbing, cyanosis. - Back Exam Back exam: Unable to assess due to patient's mental status. - Neurological Exam Neurological exam: The patient is drowsy, minimally responsive to painful stimuli, no meaningful interaction. - Psychiatric Psychiatric exam: Unable to assess due to mental status. - Skin Skin exam: Present: normal color, warm, dry, intact. Absent: cyanosis, diaphoretic, rash, urticaria Result/EKG - Labs CBC & BMP: 07/03/16 04:39 07/03/16 04:39 Lab Results: I have reviewed the past 24 hour labs Labs: Laboratory Results - last 24 hr 07/02/16 07/02/16 07/03/16 18:17 23:44 04:39 WBC RBC Hgb Hct MCV MCH MCHC RDW Plt Count MPV Neut % (Auto) Lymph % (Auto) [place] % (Auto) Eos % (Auto) Baso % (Auto) Neut # (Auto) Lymph # (Auto) [place] # (Auto) Eos # (Auto) Baso # (Auto) Total Counted Immature Gran % Nucleated RBC % Immature Gran # Segmented Neutrophils Band Neutrophils Lymphocytes Monocytes Eosinophils Myelocytes Nucleated RBCs # Platelet Estimate Hypochromasia Anisocytosis Sodium Potassium Chloride Carbon Dioxide Anion Gap BUN Creatinine GFR Calculation BUN/Creatinine Ratio Glucose POC Glucose 139 H 141 H Calculated Osmolality Calcium Magnesium Total Bilirubin 1.30 H Direct Bilirubin 0.70 H Indirect Bilirubin 0.6 AST 31 ALT 14 L Alkaline Phosphatase 67 Total Protein 6.5 Albumin 4.5 07/03/16 07/03/16 07/03/16 04:39 04:39 05:21 WBC 7.9 RBC 2.73 L Hgb 8.5 L Hct 26.7 L MCV 97.8 MCH 31 MCHC 31.8 L RDW 18.6 H Plt Count 279 MPV 11.6 Neut % (Auto) 56.1 Lymph % (Auto) 18.4 L [place] % (Auto) 17.2 H Eos % (Auto) 3.3 Baso % (Auto) 0.9 H Neut # (Auto) 4.4 Lymph # (Auto) 1.5 [place] # (Auto) 1.4 H Eos # (Auto) 0.3 Baso # (Auto) 0.1 Total Counted 100 Immature Gran % 4.1 Nucleated RBC % 0.0 Immature Gran # 0.32 Segmented Neutrophils 69 Band Neutrophils 3 Lymphocytes 19 L Monocytes 3 Eosinophils 4 Myelocytes 2 Nucleated RBCs # 0.00 Platelet Estimate Normal Hypochromasia 1+ Anisocytosis 1+ Sodium 143 Potassium 4.0 Chloride 102 Carbon Dioxide 30 Anion Gap 15.0 BUN 47 H Creatinine 1.40 H GFR Calculation 69 BUN/Creatinine Ratio 33.00 H Glucose 119 H POC Glucose 122 H Calculated Osmolality 297.0 Calcium 10.1 Magnesium 2.5 H Total Bilirubin Direct Bilirubin Indirect Bilirubin AST ALT Alkaline Phosphatase Total Protein Albumin 07/03/16 12:03 WBC RBC Hgb Hct MCV MCH MCHC RDW Plt Count MPV Neut % (Auto) Lymph % (Auto) [place] % (Auto) Eos % (Auto) Baso % (Auto) Neut # (Auto) Lymph # (Auto) [place] # (Auto) Eos # (Auto) Baso # (Auto) Total Counted Immature Gran % Nucleated RBC % Immature Gran # Segmented Neutrophils Band Neutrophils Lymphocytes Monocytes Eosinophils Myelocytes Nucleated RBCs # Platelet Estimate Hypochromasia Anisocytosis Sodium Potassium Chloride Carbon Dioxide Anion Gap BUN Creatinine GFR Calculation BUN/Creatinine Ratio Glucose POC Glucose 141 H Calculated Osmolality Calcium Magnesium Total Bilirubin Direct Bilirubin Indirect Bilirubin AST ALT Alkaline Phosphatase Total Protein Albumin - Diagnostic Findings Procedure: Chest x-ray: report reviewed by me - EKG EKG results: interpreted by me (Atrial paced rhythm, no QT prolongation) Quality Measures - VTE Contraindication to Pharmacological VTE Prophylaxis: Active Bleeding
--- NOTE | 2016-07-03 17:10 | Family Practice Progress Note ---
Family Practice - PN: Subj Interval history: Patient is semi-responsive but very lethargic. Staff report that they stopped his tube feedings because of increased residual. That was over 12 hours ago so we will have them resume at a slower rate. Agree with pulmonary and cardiology evaluation. Chest x-ray is slightly worse today with some perihilar and basilar opacifications appear. Reviewed lab studies. We will continue present treatment plan. Apparently he is awaiting placement at [facility]. Exam (Progress Note) - Constitutional Vitals: Period Temp Pulse Resp BP Sys/Mcbride Pulse Ox Last 24 Hr 97.8 F-99.2 F 60-84 15-33 91-129/55-74 91-100 Results - Labs CBC & BMP: 07/03/16 04:39 07/03/16 04:39 Quality Measures - VTE Contraindication to Pharmacological VTE Prophylaxis: Active Bleeding
[2016-07-04] MEDS: DILTIAZEM 30 MG TABLET PO SCH ×5 (01:03→23:54)
[2016-07-04] MEDS: METOCLOPRAMIDE 10 MG/2 ML VIAL IV SCH ×5 (01:04→23:59)
[2016-07-04] MEDS: INSULIN REGULAR 100 UNIT/ML SUBCUT SCH ×5 (01:04→23:40)
[2016-07-04] MEDS: FAMOTIDINE 20 MG/2 ML VIAL IV SCH ×2 (01:04→23:56)
[2016-07-04] MEDS: PIPERACILLIN/TAZOBACTAM 3,375 MG in SODIUM CHLORIDE 0.9% 100 ML IV SCH ×4 (01:05→23:55)
[2016-07-04] MEDS: ALBUTEROL/IPRATROPIUM 3 ML NEB RESP TX SCH ×4 (01:05→19:08)
[2016-07-04 06:24] LABS: Basophils # 0.1 10*3/uL (0.0-0.2); Basophils % 0.7 % (0.0-0.8); Eosinophils # 0.3 10*3/uL (0.0-0.87); Eosinophils % 2.9 % (0.00-10.9); Hematocrit 30.6 VOL% (42.0-52.0); Hemoglobin 9.6 GM/DL (14.0-18.0); Immature Granulocytes % 1.8 %; Immature Granulocytes Absolute 0.21 #; Lymphocytes # 1.5 10*3/uL (1.4-4.0); Lymphocytes % 13.3 % (21.2-54.2); Mean Corpuscular HGB Conc 31.4 GM/DL (32-36); Mean Corpuscular Hemoglobin 32 PG (27-34); Mean Corpuscular Volume 100.3 FL (87-102); Mean Platelet Volume 11.4 FL (9.6-12.0); Monocytes # 1.6 10*3/uL (0.11-0.8); Monocytes % 14.2 % (1.7-12.7); Neutrophils # 7.6 10*3/uL (1.4-7.4); Neutrophils % 67.1 % (38.7-73.9); Platelet Count 299 T/CUMM (130-400); Red Blood Count 3.05 MC/CUMM (3.8-5.5); Red Cell Distribution Width 18.2 % (9.3-17.3); White Blood Count 11.4 T/CUMM (4-12)
[2016-07-04] MEDS: ALBUMIN 25% 25 GM in PREMIX 1 EACH IV SCH ×3 (06:30→21:25)
[2016-07-04] MEDS: LEVOTHYROXINE 75 MCG TABLET PO SCH (06:31)
--- NOTE | 2016-07-04 06:42 | Pulmonology Progress Note ---
Pulmonary - PN: Subj Interval history: This 60-year-old man has a history of COPD and cirrhosis. He was ventilated for respiratory failure with aspiration pneumonia. He is requiring more oxygen now and is on facemask BiPAP. O2 sats are reasonable. Patient is drowsy but responsive. 07/04/2016 patient on continuous facemask BiPAP, O2 sats acceptable. CBC and chemistries okay. Patient remains drowsy but responsive. Little change from yesterday. Exam (Progress Note) - Constitutional Vitals: Period Temp Pulse Resp BP Sys/Mcbride Pulse Ox Last 24 Hr 97.9 F-99.2 F 60-84 15-29 103-129/60-76 95-100 Exam: Patient is responsive on facemask BiPAP. Vital signs are normal. O2 sat 97%. Pupils were reactive. Neck supple. Chest reveals some bilateral rales. Heart normal rate rhythm no murmurs. Abdomen soft no masses. Does have some ascites. Extremities no clubbing or cyanosis trace of edema. Calves nontender little change in exam from yesterday. Results - Labs CBC & BMP: 07/04/16 05:26 07/03/16 04:39 Lab Results: I have reviewed the past 24 hour labs Assessment and Plan (1) Systolic congestive heart failure Status: Chronic Assessment and plan: His weight is down. Need to check chemistries and diurese further. 07/04/2016 chemistries look okay. Continuing to diurese. Current Visit: No Qualifiers: Qualified Code(s): I50.20 - Unspecified systolic (congestive) heart failure (2) Ascites Status: Chronic Assessment and plan: Little change from before. Due to advanced cirrhosis. 07/04/16 little change in ascites Current Visit: Yes Qualifiers: Ascites type: due to alcoholic cirrhosis Qualified Code(s): K70.31 - Alcoholic cirrhosis of liver with ascites (3) Aspiration pneumonitis Status: Acute Assessment and plan: Continuing facemask BiPAP. May require mechanical ventilation again. Watch closely. 07/04/16 continuing with facemask BiPAP. Continuing with empiric antibiotics. Current Visit: Yes
[2016-07-04 06:47] LABS: Calcium 10.2 MG/DL (8.5-10.1); Magnesium 2.4 MG/DL (1.8-2.4); Osmolality,Calculated 299.8 MOS/KG (273-304); Potassium 3.9 MMOL/L (3.5-5.1)
[2016-07-04] MEDS: PANTOPRAZOLE 40 MG VIAL IV SCH (08:33)
[2016-07-04] MEDS: LACTULOSE 20 GM/30 ML UDCUP PO SCH ×2 (08:34→21:24)
[2016-07-04] MEDS: MEGESTROL 400 MG/10 ML UDCUP PO SCH ×2 (08:34→21:24)
[2016-07-04] MEDS: FUROSEMIDE 40 MG/4 ML VIAL IV SCH ×2 (08:34→16:54)
[2016-07-04] MEDS: MIDODRINE 5 MG TABLET PO SCH ×3 (08:34→21:24)
[2016-07-04] MEDS: THIAMINE 200 MG/2 ML VIAL IV SCH (08:34)
[2016-07-04] MEDS: metOLazone 2.5 MG TABLET PO SCH (08:34)
[2016-07-04] MEDS: SOTALOL 80 MG TABLET PO SCH ×2 (08:34→21:23)
[2016-07-04] MEDS: DESITIN 4OZ/NYSTATIN 15 GRAM MIXTURE PASTE TOP SCH ×2 (08:35→21:25)
[2016-07-04] MEDS: NYSTATIN CREAM 15 GM TUBE TOP SCH ×2 (08:35→21:24)
--- NOTE | 2016-07-04 09:47 | EKG Report ---
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
[2016-07-04] MEDS: ENOXAPARIN 40 MG/0.4 ML SYRINGE SUBCUT SCH (14:18)
--- NOTE | 2016-07-04 15:17 | Family Practice Progress Note ---
Family Practice - PN: Subj Interval history: Patient remains unchanged. Still very lethargic on continuous face mask with BiPAP. His a.m. labs are stable. His O2 saturations have been stable.. His physical examination is basically unchanged. We will continue present treatment plan and plan to transfer to [facility] as soon as bed available Exam (Progress Note) - Constitutional Vitals: Period Temp Pulse Resp BP Sys/Mcbride Pulse Ox Last 24 Hr 97.4 F-99.2 F 60-72 17- 108-127/60-76 90-100 Results - Labs CBC & BMP: 07/04/16 05:26 07/04/16 05:26 Quality Measures - VTE Contraindication to Pharmacological VTE Prophylaxis: Active Bleeding
--- NOTE | 2016-07-04 17:18 | Cardiology Progress Note ---
Assessment and Plan (1) Paroxysmal atrial fibrillation Status: Chronic Assessment and plan: He is currently well controlled on the sotalol therapy. He is not anticoagulated due to his anemia and requirement for several blood transfusions during his hospital stay. Current Visit: Yes (2) Hypertension Status: Chronic Current Visit: No (3) Alcohol abuse Status: Chronic Current Visit: Yes (4) Anemia Status: Acute Assessment and plan: Currently stable. He is not on anticoagulation for this reason. Current Visit: Yes (5) Alcoholic cirrhosis Status: Chronic Current Visit: Yes (6) Aspiration pneumonitis Status: Acute Assessment and plan: This is being managed by pulmonology. Current Visit: Yes (7) Respiratory failure Status: Acute Assessment and plan: Currently stable, pulmonology is following. Current Visit: Yes (8) Obesity Status: Chronic Current Visit: Yes (9) Obstructive sleep apnea Problem details: refusing his mask Status: Chronic Current Visit: Yes Cardiology - PN: Subj Interval history: Inker: Dr. Drake PCP: Dr. Reyes Mr. Tracy has a history of anxiety, atrial fibrillation, diabetes, hypertension, psoriasis, tachybradycardia syndrome status post dual-chamber pacemaker placement, obstructive sleep apnea (noncompliant), hyperlipidemia, EtOH abuse. He was admitted to the hospital on June 15, 2016 and found to have pancreatitis, liver failure, and hepatorenal syndrome. He was intubated initially, has been extubated and is on a BiPAP. He continues to be encephalopathic without any significant meaningful neurologic interaction. On the he had recurrent atrial fibrillation and we increased his sotalol 120 mg p.o. twice daily. He is tolerating this dose well. Evening was uneventful. Exam (Progress Note) - Constitutional Vitals: Period Temp Pulse Resp BP Sys/Mcbride Pulse Ox Last 24 Hr 97.4 F-98.3 F 60-72 17-27 108-128/60-76 90-100 Exam: General appearance: Obese, no acute distress, on BiPAP - Head Head exam: Present: normal inspection, normocephalic, atraumatic. Absent: hematoma, laceration - Eye Eye exam: Present: Some mild periorbital swelling. Absent: conjunctival injection, scleral icterus, laceration to eyelids Pupils: Present: KARLEE. Absent: constricted, dilated, fixed, irregular, unequal - ENT ENT exam: Present: Patient on BiPAP exam precluding further evaluation. NG tube is in place. - Neck Neck exam: Present: Exam limited by habitus, overall normal inspection. Absent : lymphadenopathy, meningismus, tenderness, thyromegaly - Respiratory Respiratory exam: Present: Exam limited by habitus, overall clear to auscultation bilaterally anteriorly. Absent: accessory muscle use, chest wall tenderness - Cardiovascular Cardiovascular exam: Present: Exam limited by habitus, tones in general distant but overall regular rate and rhythm. Absent: carotid bruit, gallop, JVD, rubs - GI/Abdominal GI/Abdominal exam: Present: Exam limited by habitus, overall normal bowel sounds. Absent: distended, firm, guarding, hernia, mass, tenderness, rebound, soft - Extremities Exam Extremities exam: Present: Mild bilateral lower extremity edema. No clubbing, cyanosis. - Back Exam Back exam: Unable to assess due to patient's mental status. - Neurological Exam Neurological exam: The patient is drowsy, minimally responsive to painful stimuli, no meaningful interaction. - Psychiatric Psychiatric exam: Unable to assess due to mental status. - Skin Skin exam: Present: normal color, warm, dry, intact. Absent: cyanosis, diaphoretic, rash, urticaria Result/EKG - Labs CBC & BMP: 07/04/16 05:26 07/04/16 05:26 Lab Results: I have reviewed the past 24 hour labs Labs: Laboratory Results - last 24 hr 07/03/16 07/03/16 07/04/16 18:03 23:48 05:26 WBC 11.4 D RBC 3.05 L Hgb 9.6 L Hct 30.6 L MCV 100.3 MCH 32 MCHC 31.4 L RDW 18.2 H Plt Count 299 MPV 11.4 Neut % (Auto) 67.1 Lymph % (Auto) 13.3 L [place] % (Auto) 14.2 H Eos % (Auto) 2.9 Baso % (Auto) 0.7 Neut # (Auto) 7.6 H Lymph # (Auto) 1.5 [place] # (Auto) 1.6 H Eos # (Auto) 0.3 Baso # (Auto) 0.1 Immature Gran % 1.8 Nucleated RBC % 0.0 Immature Gran # 0.21 Nucleated RBCs # 0.00 Sodium Potassium Chloride Carbon Dioxide Anion Gap BUN Creatinine GFR Calculation BUN/Creatinine Ratio Glucose POC Glucose 129 H 134 H Calculated Osmolality Calcium Magnesium 07/04/16 07/04/16 07/04/16 05:26 05:34 11:36 WBC RBC Hgb Hct MCV MCH MCHC RDW Plt Count MPV Neut % (Auto) Lymph % (Auto) [place] % (Auto) Eos % (Auto) Baso % (Auto) Neut # (Auto) Lymph # (Auto) [place] # (Auto) Eos # (Auto) Baso # (Auto) Immature Gran % Nucleated RBC % Immature Gran # Nucleated RBCs # Sodium 144 Potassium 3.9 Chloride 102 Carbon Dioxide 32 Anion Gap 13.9 BUN 48 H Creatinine 1.40 H GFR Calculation 69 BUN/Creatinine Ratio 34.00 H Glucose 124 H POC Glucose 122 H 127 H Calculated Osmolality 299.8 Calcium 10.2 H Magnesium 2.4 - EKG EKG results: interpreted by me, sinus rhythm (Without QT prolongation) Quality Measures - VTE Contraindication to Pharmacological VTE Prophylaxis: Active Bleeding
[2016-07-05] MEDS: ALBUTEROL/IPRATROPIUM 3 ML NEB RESP TX SCH ×4 (01:28→19:51)
[2016-07-05 05:02] LABS: Basophils # 0.1 10*3/uL (0.0-0.2); Basophils % 0.5 % (0.0-0.8); Eosinophils # 0.3 10*3/uL (0.0-0.87); Eosinophils % 2.4 % (0.00-10.9); Hematocrit 29.8 VOL% (42.0-52.0); Hemoglobin 9.3 GM/DL (14.0-18.0); Immature Granulocytes % 1.5 %; Lymphocytes # 1.7 10*3/uL (1.4-4.0); Lymphocytes % 12.8 % (21.2-54.2); Mean Corpuscular HGB Conc 31.2 GM/DL (32-36); Mean Corpuscular Hemoglobin 31 PG (27-34); Mean Platelet Volume 11.4 FL (9.6-12.0); Monocytes # 1.7 10*3/uL (0.11-0.8); Neutrophils # 9.1 10*3/uL (1.4-7.4); Neutrophils % 69.8 % (38.7-73.9); Platelet Count 298 T/CUMM (130-400); Red Blood Count 2.98 MC/CUMM (3.8-5.5); White Blood Count 13.1 T/CUMM (4-12)
[2016-07-05 05:18] LABS: Calcium 10.1 MG/DL (8.5-10.1); Magnesium 2.3 MG/DL (1.8-2.4); Osmolality,Calculated 301.8 MOS/KG (273-304); Potassium 3.6 MMOL/L (3.5-5.1)
[2016-07-05] MEDS: ALBUMIN 25% 25 GM in PREMIX 1 EACH IV SCH ×3 (06:04→23:00)
[2016-07-05 06:05] LABS: Band Neutrophils 1 % (0-10); Eosinophils 5 % (0-10); Lymphocytes 15 % (20-55); Myelocytes 2 %; Segmented Neutrophils 71 % (50-85); Total Cells Counted 100
[2016-07-05] MEDS: INSULIN REGULAR 100 UNIT/ML SUBCUT SCH ×3 (06:05→18:03)
[2016-07-05] MEDS: DILTIAZEM 30 MG TABLET PO SCH ×3 (06:05→18:02)
[2016-07-05 06:06] LABS: Anisocytosis 1+
[2016-07-05] MEDS: LEVOTHYROXINE 75 MCG TABLET PO SCH (06:06)
[2016-07-05] MEDS: METOCLOPRAMIDE 10 MG/2 ML VIAL IV SCH ×3 (06:06→18:03)
[2016-07-05 06:07] LABS: Hypochromasia Slight; Platelet Estimate Normal
--- NOTE | 2016-07-05 07:04 | Family Practice Progress Note ---
Family Practice - PN: Subj Interval history: Patient apparently developed A. fib with rapid ventricular response over the weekend. He has responded to sotalol now has a normal sinus rhythm. He actually made eye contact me this morning and whispered his first name when I asked him his name. This is certainly an improvement over last week. I discussed his situation with his and she fully understand his predicament. Were trying to find him a bed at [facility] if his insurance will cooperate. His vital signs have been stable over the last 24 hours. Exam (Progress Note) - Constitutional Vitals: Period Temp Pulse Resp BP Sys/Mcbride Pulse Ox Last 24 Hr 97.0 F-97.6 F 60-72 16-27 105-128/55-74 90-100 Exam: Objectively well-developed white male who makes eye contact and was able to whisper his first name. I could not get him to move either upper extremity to command. He does respond to painful stimuli. Cardiovascular: Heart rates is regular with no murmurs or gallops. He appears to be in normal sinus rhythm on the monitor. Respiratory: Lungs clear to auscultation bilaterally. Abdomen: Abdomen soft and nontender to palpation. Neuro: Patient is moving all extremities to painful stimuli Results - Labs CBC & BMP: 07/05/16 04:45 07/05/16 04:45 Lab Results: I have reviewed the past 24 hour labs Assessment and Plan (1) Atrial flutter Status: Resolved Assessment and plan: 06/22/2016: Heart rate still bit elevated and he appears to be in persistent flutter 06/23/2016: Persistent atrial flutter. Current Visit: No (2) Anemia Status: Chronic Assessment and plan: 06/22/2016: Hematocrit remained stable. Patient has heme positive stool. Current Visit: Yes (3) Obstructive sleep apnea Problem details: refusing his mask Status: Chronic Assessment and plan: 06/22/2016: Patient apparently refusing to wear his CPAP mask. 06/30/2016: Patient is off the ventilator and is back on his BiPAP. 07/01/2016: Patient is tolerating BiPAP. Current Visit: Yes (4) Acute pancreatitis Status: Resolved Assessment and plan: 06/22/2016: Patient's pancreatitis has resolved. Current Visit: Yes Qualifiers: Pancreatitis type: alcohol induced (5) Aspiration pneumonitis Status: Acute Assessment and plan: 06/23/2016: Have ordered 40 of Lasix. Blood cultures have been ordered. Will ask pulmonary to see as well. 06/28/2016: Patient is doing well in the event, is not tolerating weaning and will probably need LTAC. 06/29/2016: Patient is slowly improving. Will consult leather case finisher for LTAC. 06/30/2016: Patient is now off the ventilator. He will need long-term care facility. His long-term prognosis is very poor 07/01/2016: Patient's chest x-ray is improved this morning. Patient will require LTAC. Current Visit: Yes (6) Encephalopathy Status: Acute Assessment and plan: 07/05/2016: Patient's encephalopathy persists. Patient is going to require long- term care and [facility]'s been consulted if his insurance will cooperate. Current Visit: Yes Quality Measures - VTE Contraindication to Pharmacological VTE Prophylaxis: Active Bleeding
--- NOTE | 2016-07-05 07:15 | EKG Report ---
Stationary ECG Study [facility] Test Date: 07/05/2016 7:15:16 AM Pat Name: ISAC AYON Department: Room: 108 Gender: M Doula: GRAYSON : 1955 Requested by: Kari Garcia Order Number: [id number] Reading MD: KARI GARCIA Intervals [place] Rate: 59 P: 224 [place]: 190 QRS: 100 QRSD: 97 T: 152 QT: 416 QTc: 416 Interpretive Statements ELECTRONIC ATRIAL PACEMAKER POSSIBLE RIGHT VENTRICULAR HYPERTROPHY MODERATE T-WAVE ABNORMALITY, CONSIDER ANTEROLATERAL ISCHEMIA Electronically Signed On 07-05-16 09:00:19 CDT by KARI GARCIA [email or web address]
--- NOTE | 2016-07-05 07:33 | Pulmonology Progress Note ---
Pulmonary - PN: Subj Interval history: Patient is a 60-year-old white man that is in very poor condition with obesity and chronic liver disease and heart disease. He was having more respiratory distress yesterday and had to be intubated. He was on the ventilator for several days but yesterday he was extubated. He has been breathing fairly well but he does require some suctioning. Over the weekend he had some arrhythmias with atrial fibrillation but is back in sinus rhythm now. He has been a little more responsive although he still does not do much activity. He has been comfortable on BiPAP. His O2 saturations are adequate. His chest x-ray Tuesday was stable. Overall he has been doing reasonably well. Exam (Progress Note) - Constitutional Vitals: Period Temp Pulse Resp BP Sys/Mcbride Pulse Ox Last 24 Hr 97.0 F-97.6 F 60-72 16-27 101-128/55-74 90-100 Exam: General appearance: no distress (He arouses a little easier than he did and does respond a little more. He is comfortable on BiPAP.) - Head Head exam: Present: normal inspection, normocephalic - Eye Eye exam: Present: EOMI. Absent: scleral icterus Pupils: Present: KARLEE - ENT ENT exam: Present: other (Patient has a very narrow hypopharynx) he does have an NG tube in place. - Neck Neck exam: Present: other (Patient does have a large neck). Absent: lymphadenopathy, thyromegaly - Respiratory Respiratory exam: Present: He has fairly good breath sounds and still has upper airway rhonchi. - Cardiovascular Cardiovascular exam: Present: His heart rate is regular at the present time. - GI/Abdominal GI/Abdominal exam: Present:active bowel sounds, soft, other (Abdomen is large). Absent: organomegaly, tenderness - Extremities Exam Extremities exam: Absent: calf tenderness, edema, he will move his extremities but is very weak. - Neurological Exam Neurological exam: Present: altered (Patient is a little more responsive today) - Psychiatric Psychiatric exam: Present: He is lethargic off the ventilator. - Skin Skin exam: Present: warm, dry Results - Labs CBC & BMP: 07/05/16 04:45 07/05/16 04:45 Assessment and Plan (1) NICM (nonischemic cardiomyopathy) Problem details: improved EF per updated ECHO Status: Chronic Assessment and plan: The patient does have cardiomegaly and has had a component of heart failure that is better. He has been reasonably comfortable on CPAP. Current Visit: Yes (2) Paroxysmal atrial fibrillation Status: Chronic Assessment and plan: The patient went back into atrial fibrillation but has been converted with sotalol. He is in a regular rhythm now. Current Visit: Yes (3) Obstructive sleep apnea Problem details: refusing his mask Status: Chronic Assessment and plan: Patient is using CPAP at night and did fairly well. Current Visit: Yes (4) Alcoholic cirrhosis Status: Chronic Assessment and plan: Patient had a bilirubin of 2.9 on last check. He still has a significant encephalopathy. He is responding a little better today. Current Visit: Yes (5) Aspiration pneumonitis Status: Acute Assessment and plan: Patient has been fairly stable off the ventilator but is using CPAP. He has a very mild left lower lobe infiltrate that is better. He is still getting vigorous respiratory therapy. Current Visit: Yes
--- NOTE | 2016-07-05 08:48 | Cardiology Progress Note ---
I, Alice Chinchilla RN, am scribing for, and in the presence of, Thierno Nagy MD 08:48. Assessment and Plan - Time spent with patient Time spent with patient: Greater than 30 minutes (1) Paroxysmal atrial fibrillation Status: Chronic Assessment and plan: Currently he is in sinus rhythm. Pulse rate well controlled and in the 60s. Continue sotalol 120 mg by mouth twice daily and Cardizem 30 mg by mouth every 6 hours. I am adding a potassium supplement and vitamin C. He is not anticoagulated due to previous significant anemia requiring blood transfusion. Echocardiogram this admission LV ejection fraction 60%, grade 1/4 diastolic dysfunction, moderate TR with PA pressure 40-45 mmHg. Current Visit: Yes (2) Respiratory failure Status: Acute Assessment and plan: Defer primary management to pulmonary. Current Visit: Yes (3) Aspiration pneumonitis Status: Acute Current Visit: Yes (4) Hypertension Status: Chronic Assessment and plan: Currently, blood pressure is well controlled. Continue current medication regimen. Current Visit: No (5) Anemia Status: Chronic Assessment and plan: H&H is stable this morning at 9.3 and 29.8. Currently, he is not anticoagulated for stroke prevention due to severe anemia and has been transfused with a total of 5 units packed red blood cells this admission. Current Visit: Yes (6) Alcohol abuse Status: Chronic Current Visit: Yes (7) Alcoholic cirrhosis Status: Chronic Current Visit: Yes (8) Obesity Status: Chronic Current Visit: Yes (9) Obstructive sleep apnea Problem details: refusing his mask Status: Chronic Current Visit: Yes Cardiology - PN: Subj Interval history: PRIMARY PLASTERER FOREMAN: DR. OLAYINKA CONLEY PCP: DR. SAMMY BOONE SUMMARY: Mr. Tracy is a 60-year-old white past medical history of paroxysmal atrial fibrillation, diabetes, hypertension, tachybradycardia syndrome now status post dual-chamber pacemaker implant, CHRIS, hyperlipidemia, and EtOH abuse. He was admitted to the ICU on 06/15/16 with pancreatitis, liver failure, and hepatorenal syndrome. During admission, he has been intubated due to aspiration pneumonitis with acute respiratory failure. He has been able to be extubated and fairly stable with use of BiPAP machine. He has developed a component of encephalopathy. On 07/01/16, he was noted to have recurrence of atrial fibrillation with RVR, beta-shantelle was increased, and pulse rate has done overall well since that time. He is being evaluated for placement at [facility]. Cardiology has been consulted to manage atrial fibrillation. Patient seen and examined in the ICU. Currently, he is calm and resting quietly without acute distress noted. He does open eyes to verbal stimuli, but does not offer much verbal response. Vital signs have been stable overnight, and he is in a sinus rhythm, pulse rate in the 60s, atrial pacing seen at times. Labs reviewed. White blood cell 13,100. H&H 9.3 and 29.8. Potassium is 3.6. Magnesium 2.3. Creatinine 1.6 with GFR 59. Current Medications Acetaminophen (Tylenol Tab) 650 mg PO Q6H PRN PRN Reason: Fever > 100.4 or Headache Albuterol/Ipratropium (Duoneb) 3 ml RESP TX RT Q6H [facility] Last Admin: 07/05/16 07:30 Dose: 3 ml Ascorbic Acid (Vitamin C Tab) 1,000 mg PO BID PATRICK Dextrose/Water (D50) 25 gm IV PRN PRN PRN Reason: Hypoglycemia with IV access Diltiazem HCl (Cardizem Tab) 30 mg PO Q6HR PATRICK Last Admin: 07/05/16 06:05 Dose: 30 mg Enoxaparin Sodium (Lovenox) 40 mg SUBCUT Q24H [facility] Last Admin: 07/04/16 14:18 Dose: 40 mg Famotidine (Pepcid Inj) 20 mg IV Q24H PATRICK Last Admin: 07/04/16 23:56 Dose: 20 mg Furosemide (Lasix Inj) 40 mg IV BID DIURETIC PATRICK Last Admin: 07/04/16 16:54 Dose: 40 mg Glucagon () 1 mg IM PRN PRN PRN Reason: Hypoglycemia w/o IV access Haloperidol Lactate (Haldol Inj) 5 mg IM Q6HR PRN PRN Reason: Agitation Heparin Sodium (Porcine) () 50 units IV PRN PRN PRN Reason: Flush Last Admin: 07/01/16 15:36 Dose: 50 units Phenylephrine/Sodium Chloride (Elder Synephrine Drip) 40 mg in 250 mls @ 15 mls/ hr IV TITRATE PRN; Protocol; 40 MCG/MIN PRN Reason: Hypotension Last Titration: 06/29/16 06:40 Dose: 0 mcg/min, 0 mls/hr Piperacillin Sod/Tazobactam (Sod 3,375 mg/ Sodium Chloride) 100 mls @ 25 mls/ hr IV Q8H [facility] Last Infusion: 07/05/16 03:55 Dose: Infused Propofol (Diprivan) 1,000 mg in 100 mls @ 3.293 mls/hr IV TITRATE PATRICK; 5 MCG/KG /MIN PRN Reason: Protocol Last Admin: 06/28/16 18:14 Dose: Not Given Magnesium Sulfate 2 gm/ Premix 50 mls @ 25 mls/hr IV .PER PROTOCOL PRN; Protocol PRN Reason: Per Protocol Last Infusion: 06/30/16 08:09 Dose: Infused Magnesium Sulfate 4 gm/ Premix 100 mls @ 25 mls/hr IV .PER PROTOCOL PRN; Protocol PRN Reason: Per Protocol Last Infusion: 06/26/16 13:00 Dose: Infused Potassium Chloride 10 meq/ (Premix) 100 mls @ 100 mls/hr IV .PER PROTOCOL PRN; Protocol PRN Reason: Per Protocol Last Infusion: 06/30/16 11:23 Dose: Infused Potassium Chloride 20 meq/ (Premix) 100 mls @ 50 mls/hr IV .PER PROTOCOL PRN; Protocol PRN Reason: Per Protocol Last Infusion: 07/01/16 08:42 Dose: Infused Albumin Human 25 gm/ Premix 100 mls @ 100 mls/hr IV Q8H [facility] Last Infusion: 07/05/16 07:04 Dose: Infused Diltiazem HCl 125 mg/ Sodium (Chloride) 125 mls @ 5 mls/hr IV TITRATE PATRICK; 5 MG /HR PRN Reason: Protocol Last Admin: 07/03/16 19:05 Dose: Not Given Insulin Human Regular (Humulin R) 0 unit SUBCUT Q6HR PATRICK PRN Reason: Protocol Last Admin: 07/05/16 06:05 Dose: Not Given Ketoconazole (Nizoral 2% Shampoo) 1 applic TOP TuFr [facility] Last Admin: 07/02/16 21:33 Dose: 1 applic Lactulose (Chronulac) 10 gm PO BID [facility] Last Admin: 07/04/16 21:24 Dose: 10 gm Levothyroxine Sodium (Synthroid Tab) 75 mcg PO DAILY@0700 [facility] Last Admin: 07/05/16 06:06 Dose: 75 mcg Megestrol Acetate (Megace Liquid) 400 mg PO BID [facility] Last Admin: 07/04/16 21:24 Dose: 400 mg Metoclopramide HCl (Reglan Inj) 10 mg IV Q6HR [facility] Last Admin: 07/05/16 06:06 Dose: 10 mg Metolazone (Zaroxolyn) 2.5 mg PO DAILY [facility] Stop: 07/05/16 23:59 Last Admin: 07/04/16 08:34 Dose: 2.5 mg Metoprolol Tartrate (Lopressor Inj) 5 mg IV Q4H PRN PRN Reason: heart rate > 100 Last Admin: 06/25/16 17:30 Dose: 5 mg Midodrine (Proamatine) 10 mg PO TID [facility] Last Admin: 07/04/16 21:24 Dose: 10 mg Nystatin (Mycostatin Cream) 1 applic TOP BID [facility] Last Admin: 07/04/16 21:24 Dose: 1 applic Nystatin/Zinc Oxide (Skin Protectant Mixture) 1 applic TOP BID [facility] Last Admin: 07/04/16 21:25 Dose: 1 applic Ondansetron HCl (Zofran Inj) 4 mg IV Q6H PRN PRN Reason: Nausea/Vomiting Last Admin: 06/22/16 23:12 Dose: 4 mg Oxymetazoline HCl (Afrin Nasal [place]) 2 spray BOTH NARES BID PRN PRN Reason: see label comments Last Admin: 07/03/16 16:30 Dose: 2 spray Pantoprazole Sodium (Protonix Inj) 40 mg IV DAILY [facility] Last Admin: 07/04/16 08:33 Dose: 40 mg Potassium Chloride (K Dur) 20 meq PO DAILY [facility] Sotalol HCl (Betapace) 120 mg PO BID [facility] Last Admin: 07/04/16 21:23 Dose: 120 mg Thiamine HCl (Vitamin B1 Inj) 100 mg IV DAILY [facility] Last Admin: 07/04/16 08:34 Dose: 100 mg Exam (Progress Note) - Constitutional Vitals: Period Temp Pulse Resp BP Sys/Mcbride Pulse Ox Last 24 Hr 97.0 F-97.6 F 60-72 16-27 101-128/55-74 90-100 Exam: General appearance: Obese, no acute distress, on BiPAP - Head Head exam: Present: normal inspection, normocephalic, atraumatic. Absent: hematoma, laceration - Eye Eye exam: Present: Some mild periorbital swelling. Absent: conjunctival injection, scleral icterus, laceration to eyelids Pupils: Present: KARLEE. Absent: constricted, dilated, fixed, irregular, unequal - ENT ENT exam: Present: Patient on BiPAP. NG tube noted. - Neck Neck exam: Present: midline trachea. Absent: lymphadenopathy, meningismus, tenderness, thyromegaly - Respiratory Respiratory exam: Present: rales throughout, expirational wheeze. Absent: accessory muscle use, chest wall tenderness, rhonchi - Cardiovascular Cardiovascular exam: Present: regular rate and rhythm. Absent: carotid bruit, gallop, JVD, rubs, murmur - GI/Abdominal GI/Abdominal exam: Present: normal bowel sounds, obese. Absent: distended, firm , guarding, hernia, mass, tenderness, rebound, soft - Extremities Exam Extremities exam: Present: Mild bilateral lower extremity edema, nonpitting. No clubbing, cyanosis. - Back Exam Back exam: Unable to assess due to patient's mental status. - Neurological Exam Neurological exam: The patient is drowsy, does open eyes and make eye contact with verbal stimuli but does not offer much verbal response. Does not follow commands. - Psychiatric Psychiatric exam: Unable to assess due to mental status. - Skin Skin exam: Present: normal color, warm, dry, intact. Absent: cyanosis, diaphoretic, rash, urticaria Result/EKG - Labs CBC & BMP: 07/05/16 04:45 07/05/16 04:45 Lab Results: I have reviewed the past 24 hour labs Labs: Laboratory Results - last 24 hr 07/04/16 07/04/16 07/04/16 11:36 18:20 23:19 WBC RBC Hgb Hct MCV MCH MCHC RDW Plt Count MPV Neut % (Auto) Lymph % (Auto) [place] % (Auto) Eos % (Auto) Baso % (Auto) Neut # (Auto) Lymph # (Auto) [place] # (Auto) Eos # (Auto) Baso # (Auto) Total Counted Immature Gran % Nucleated RBC % Immature Gran # Segmented Neutrophils Band Neutrophils Lymphocytes Monocytes Eosinophils Basophils Myelocytes Nucleated RBCs # Platelet Estimate Hypochromasia Anisocytosis Sodium Potassium Chloride Carbon Dioxide Anion Gap BUN Creatinine GFR Calculation BUN/Creatinine Ratio Glucose POC Glucose 127 H 117 H 116 H Calculated Osmolality Calcium Phosphorus Magnesium Prealbumin 07/05/16 07/05/16 07/05/16 04:45 04:45 04:45 WBC 13.1 H RBC 2.98 L Hgb 9.3 L Hct 29.8 L MCV 100.0 MCH 31 MCHC 31.2 L RDW 18.0 H Plt Count 298 MPV 11.4 Neut % (Auto) 69.8 Lymph % (Auto) 12.8 L [place] % (Auto) 13.0 H Eos % (Auto) 2.4 Baso % (Auto) 0.5 Neut # (Auto) 9.1 H Lymph # (Auto) 1.7 [place] # (Auto) 1.7 H Eos # (Auto) 0.3 Baso # (Auto) 0.1 Total Counted 100 Immature Gran % 1.5 Nucleated RBC % 0.0 Immature Gran # 0.20 Segmented Neutrophils 71 Band Neutrophils 1 Lymphocytes 15 L Monocytes 5 Eosinophils 5 Basophils 1.0 H Myelocytes 2 Nucleated RBCs # 0.00 Platelet Estimate Normal Hypochromasia Slight Anisocytosis 1+ Sodium Potassium Chloride Carbon Dioxide Anion Gap BUN Creatinine GFR Calculation BUN/Creatinine Ratio Glucose POC Glucose Calculated Osmolality Calcium Phosphorus 4.7 Magnesium Prealbumin 18.9 L 07/05/16 07/05/16 04:45 05:22 WBC RBC Hgb Hct MCV MCH MCHC RDW Plt Count MPV Neut % (Auto) Lymph % (Auto) [place] % (Auto) Eos % (Auto) Baso % (Auto) Neut # (Auto) Lymph # (Auto) [place] # (Auto) Eos # (Auto) Baso # (Auto) Total Counted Immature Gran % Nucleated RBC % Immature Gran # Segmented Neutrophils Band Neutrophils Lymphocytes Monocytes Eosinophils Basophils Myelocytes Nucleated RBCs # Platelet Estimate Hypochromasia Anisocytosis Sodium 144 Potassium 3.6 Chloride 101 Carbon Dioxide 34 H Anion Gap 12.6 BUN 54 H Creatinine 1.60 H GFR Calculation 59 BUN/Creatinine Ratio 33.00 H Glucose 117 H POC Glucose 120 H Calculated Osmolality 301.8 Calcium 10.1 Phosphorus Magnesium 2.3 Prealbumin - EKG EKG results: interpreted by me, no acute changes EKG shows: sinus rhythm (Atrial pacing) Quality Measures - VTE Contraindication to Pharmacological VTE Prophylaxis: Active Bleeding Lilo Ramos Michael, MD, personally performed the services described in this documentation, ascribed by Alice Chinchilla RN in my presence, and it is both accurate and complete .
[2016-07-05] MEDS: PIPERACILLIN/TAZOBACTAM 3,375 MG in SODIUM CHLORIDE 0.9% 100 ML IV SCH ×2 (09:16→16:19)
[2016-07-05] MEDS: FUROSEMIDE 40 MG/4 ML VIAL IV SCH ×2 (09:16→16:12)
[2016-07-05] MEDS: SOTALOL 80 MG TABLET PO SCH ×2 (09:17→20:47)
[2016-07-05] MEDS: POTASSIUM CHLORIDE 20 MEQ TABLET PO SCH (09:18)
[2016-07-05] MEDS: MEGESTROL 400 MG/10 ML UDCUP PO SCH ×2 (09:18→20:47)
[2016-07-05] MEDS: LACTULOSE 20 GM/30 ML UDCUP PO SCH ×2 (09:18→20:47)
[2016-07-05] MEDS: DESITIN 4OZ/NYSTATIN 15 GRAM MIXTURE PASTE TOP SCH ×2 (09:19→23:26)
[2016-07-05] MEDS: metOLazone 2.5 MG TABLET PO SCH (09:19)
[2016-07-05] MEDS: MIDODRINE 5 MG TABLET PO SCH ×3 (09:19→20:49)
[2016-07-05] MEDS: PANTOPRAZOLE 40 MG VIAL IV SCH (09:20)
[2016-07-05] MEDS: THIAMINE 200 MG/2 ML VIAL IV SCH (09:20)
[2016-07-05] MEDS: ASCORBIC ACID 500 MG TABLET PO SCH ×2 (09:21→20:47)
[2016-07-05] MEDS: NYSTATIN CREAM 15 GM TUBE TOP SCH ×2 (09:21→23:26)
[2016-07-05] MEDS ORDERED: SUCCINYLCHOLINE 200 MG/10 ML VIAL IV ONE (13:15)
[2016-07-05] MEDS ORDERED: ETOMIDATE 20 MG/10 ML VIAL IV ONE ×2 (13:15)
[2016-07-05] MEDS ORDERED: LIDOCAINE 100 MG/5 ML SYRINGE ONE (13:16)
[2016-07-05] MEDS ORDERED: SUCCINYLCHOLINE 200 MG/10 ML VIAL ONE (13:16)
[2016-07-05] MEDS ORDERED: PROPOFOL 1,000 MG/100 ML BOTTLE IV ONE (13:55)
[2016-07-05] MEDS: PROPOFOL 1,000 MG/100 ML BOTTLE IV SCH (14:01)
--- NOTE | 2016-07-05 14:06 | XRay Report ---
History: Decreased oxygen saturation, uneven chest rise Date: 07/05/2016 at 1:03 PM Study: Chest x-ray AP portable Comparison exam: Portable chest x-ray July 03, 2016 The nasogastric tube remains in satisfactory position. A right PICC line is well positioned. A left subclavian dual-lead transvenous pacemaker is unchanged. There are stable cardiomegaly. There is opacification of the lower 30-40% of the right hemithorax, thought to be related to a combination of right basilar atelectasis and mild to moderate pleural effusion. While there is improved aeration in the left lower lung, there is some patchy and hazy and strandy left basilar opacity on the current study. There is no pneumothorax. The osseous structures are unchanged. Impression: Increasing atelectasis and pleural effusion in the lower right hemithorax on the current study PROCEDURE INTERPRETED AT [facility] DEPARTMENT OF RADIOLOGY Final Report Signed by: Dr. Susan Ray
--- NOTE | 2016-07-05 14:07 | Operative Note ---
Date of procedure: 07/05/16 Pre-op diagnosis: Right lung atelectasis Post-op diagnosis: other (Retained secretions) Procedure: The patient is a 60-year-old has an encephalopathy and COPD and has had trouble clearing secretions. This morning he is dropped his O2 saturations and become less responsive. He ultimately had to be intubated. He now has atelectasis of his right lung. A bronchoscopy will be done to clear airways. Procedure: The patient is back on the ventilator in the ICU. The fiberoptic bronchoscope was passed to the ET tube into the airways. The bronchopulmonary segments were identified but no specimens obtained. Findings: The ET tube is in good position in the trachea. There are some thick white secretions in the right main that were washed and cleared. The right upper lobe and right lower lobe were washed and cleared with saline. The airways actually look okay. The left lung looks unremarkable. Once the airways were clear the procedure was stopped. He tolerated the procedure fairly well. Impression: Worsening right lung atelectasis due to retained secretions. Plan: We will continue vigorous respiratory therapy. Anesthesia: conscious sedation Surgeon / Physician: Faustino Garcia Estimated blood loss: none Specimens: none sent Condition: critical Disposition: ICU Results - Labs CBC & BMP: 07/05/16 04:45 07/05/16 04:45 Discharge Plan - Discharge Medications No Action Apixaban [Eliquis] 5 mg PO BID #60 tablet Aspirin Chew Tab 81 mg PO DAILY tablet Losartan [Cozaar] 25 mg PO DAILY #30 tablet Magnesium Oxide 800 mg PO BID #60 tablet Nitroglycerin Sl Tab [Nitrostat] 0.4 mg SL Q5M PRN #30 tablet PRN Reason: Chest Pain Sotalol [Betapace] 80 mg PO BID #60 tablet Spironolactone [Aldactone] 50 mg PO DAILY #30 tablet Diltiazem Cd Cap [Cardizem CD] 180 mg PO DAILY #30 capsule Furosemide Tab [Lasix Tab] 40 mg PO BID DIURETIC #60 tablet Levothyroxine Tab [Synthroid Tab] 75 mcg PO DAILY@0700 Furosemide [Lasix] 40 mg PO BID Potassium Chloride 20 meq PO BID - Follow Up or Referral - Forms/Instructions
--- NOTE | 2016-07-05 14:07 | XRay Report ---
History: Endotracheal tube placement Date: 07/05/2016 at 1:23 PM Study: Chest x-ray AP portable Comparison exam: 07/05/2016 at 1:03 PM The endotracheal tube is well positioned with its tip over the mid tracheal level. There is increasing opacification of the right hemithorax, thought to be related to increasing volume loss of the right lung. Consider underlying mucous plugging. Exam is otherwise unchanged. Impression: Satisfactory positioning of endotracheal tube. Increasing volume loss of the right lung compared to the previous study PROCEDURE INTERPRETED AT [facility] DEPARTMENT OF RADIOLOGY Final Report Signed by: Dr. Susan Ray
[2016-07-05] MEDS ORDERED: VECURONIUM 10 MG VIAL IV ONE ×2 (14:16→14:21)
[2016-07-05] MEDS: ENOXAPARIN 40 MG/0.4 ML SYRINGE SUBCUT SCH (14:42)
[2016-07-05 15:05] LABS: ABG Base Excess 7.3 MMOL/L (-2.5-2.5); ABG HCO3 30.8 MMOL/L (20-26); ABG Oxygen Saturation 80.9 % (95-100); ABG PH 7.483 (7.35-7.45); ABG PO2 44.1 MM HG (80-95); ABG TCO2 28.6 MMOL/L (23-27); Allen Test Positive; Pt O2 Delivery Device Ventilator
[2016-07-05] MEDS ORDERED: SODIUM CHLORIDE 0.9% 500 ML IV ONE (15:12)
--- NOTE | 2016-07-05 16:00 | XRay Report ---
Referring Physician: Daniel Reyes Exam: XR chest 1V portable Date: July 05, 2016 at 3:27 PM Reason: Hypoxia Comparison: Chest one view portable July 05, 2016 at 1:20 PM Findings: An endotracheal tube, right-sided PICC, feeding tube and cardiac pacing device are again in place. The cardiac silhouette is again enlarged. There are scattered opacities throughout the right lung and within the left lower lung zone. This is concerning for pulmonary edema and atelectasis, but there could also be pneumonia. No pneumothorax is identified, but there is mild to moderate right pleural fluid and likely minimal left pleural fluid. The osseous structures appear stable. Impression: There is improved aeration of the right upper and midlung zones and probable decreased right pleural fluid. The study is otherwise similar to before. PROCEDURE INTERPRETED AT [facility] DEPARTMENT OF RADIOLOGY Final Report Signed by: Dr. David Rhoades
--- NOTE | 2016-07-05 19:05 | Anesthesia Procedures ---
Anesthesia Procedures - Intubation Time out performed intubation: Yes (At 13:20 at the bedside.) Sedative: Etomidate Mg given sedative: 13 Paralytic: Succinylcholine Mg given paralytic: 100 Laryngoscope: Renan ET Tube Size: 8 Tube Secured Depth (cm): 23 Tube Secured Location: lips Tube Placement Confirmation: visualized tube passing through cords, equal breath sounds bilaterally, no breath sounds over epigastrium, confirmation by capnometry, confirmation detector color change Patient tolerated procedure intubation: well Intubation Complications: none Additional Commets: lidocaine 80 mg IV was given for the intubation. CXR for correct ETT placementwill be followed by ICU team.
--- NOTE | 2016-07-05 19:08 | XRay Report ---
Exam: XR chest 1V portable Indication: Hypoxia, intubated Comparison study: 07/05/2016 at 3:29 PM Findings: Endotracheal tube and esophagogastric tube are in similar positions. The right-sided PICC line is also in essentially unchanged position. Patient is rotated limiting evaluation/comparison. Cardiac silhouette is enlarged, similar prior. Perihilar and basilar opacities are noted, which are not significantly changed from prior may represent underlying pulmonary edema or multifocal infectious/inflammatory infiltrates. Small bilateral pleural effusions are also suspected. There is no pneumothorax. Left chest pacemaker device is in similar position. There is no acute osseous abnormality. Impression: Study is limited for comparison due to significant patient rotation. Similar position of support tubes and lines. Cardiomegaly with perihilar and basilar interstitial/airspace opacities may represent pulmonary edema changes although infectious/inflammatory infiltrates are not excluded. Small bilateral pleural effusions are also suspected. PROCEDURE INTERPRETED AT [facility] DEPARTMENT OF RADIOLOGY Final Report Signed by: Jossue Shane
[2016-07-05] MEDS: POTASSIUM CHLORIDE RIDER 10 MEQ in PREMIX 1 EACH IV PRN ×2 (22:02→23:20)
[2016-07-05] MEDS: PHENYLEPHRINE DRIP 40 MG/250 ML PREMIX IV SCH (23:27)
[2016-07-06] MEDS: ALBUTEROL/IPRATROPIUM 3 ML NEB RESP TX SCH ×4 (00:39→19:11)
[2016-07-06] MEDS: DILTIAZEM 30 MG TABLET PO SCH ×4 (00:55→17:58)
[2016-07-06] MEDS: INSULIN REGULAR 100 UNIT/ML SUBCUT SCH ×4 (01:48→18:21)
[2016-07-06] MEDS: METOCLOPRAMIDE 10 MG/2 ML VIAL IV SCH ×4 (01:49→17:58)
[2016-07-06] MEDS: PIPERACILLIN/TAZOBACTAM 3,375 MG in SODIUM CHLORIDE 0.9% 100 ML IV SCH ×3 (01:49→16:01)
[2016-07-06] MEDS: FAMOTIDINE 20 MG/2 ML VIAL IV SCH (01:49)
[2016-07-06] MEDS: PROPOFOL 1,000 MG/100 ML BOTTLE IV SCH ×4 (01:58→19:29)
[2016-07-06 03:49] LABS: ABG Base Excess 5.7 MMOL/L (-2.5-2.5); ABG HCO3 29.6 MMOL/L (20-26); ABG PCO2 25.3 MM HG (35-48); ABG TCO2 23.8 MMOL/L (23-27)
[2016-07-06 03:51] LABS: ABG PH 7.625 (7.35-7.45)
[2016-07-06 05:16] LABS: Basophils # 0.1 10*3/uL (0.0-0.2); Basophils % 0.6 % (0.0-0.8); Eosinophils # 0.3 10*3/uL (0.0-0.87); Eosinophils % 1.7 % (0.00-10.9); Hematocrit 28.7 VOL% (42.0-52.0); Hemoglobin 9.5 GM/DL (14.0-18.0); Immature Granulocytes % 1.1 %; Immature Granulocytes Absolute 0.16 #; Lymphocytes # 2.4 10*3/uL (1.4-4.0); Lymphocytes % 15.7 % (21.2-54.2); Mean Corpuscular HGB Conc 33.1 GM/DL (32-36); Mean Corpuscular Hemoglobin 31 PG (27-34); Mean Corpuscular Volume 94.7 FL (87-102); Mean Platelet Volume 11.1 FL (9.6-12.0); Monocytes # 1.9 10*3/uL (0.11-0.8); Monocytes % 12.4 % (1.7-12.7); Neutrophils # 10.4 10*3/uL (1.4-7.4); Neutrophils % 68.5 % (38.7-73.9); Platelet Count 324 T/CUMM (130-400); Red Blood Count 3.03 MC/CUMM (3.8-5.5); Red Cell Distribution Width 18.6 % (9.3-17.3); White Blood Count 15.1 T/CUMM (4-12)
[2016-07-06 05:41] LABS: Magnesium 2.1 MG/DL (1.8-2.4); Osmolality,Calculated 307.8 MOS/KG (273-304); Potassium 3.8 MMOL/L (3.5-5.1)
[2016-07-06] MEDS: ALBUMIN 25% 25 GM in PREMIX 1 EACH IV SCH ×3 (06:26→20:19)
[2016-07-06] MEDS: LEVOTHYROXINE 75 MCG TABLET PO SCH (06:28)
--- NOTE | 2016-07-06 07:15 | Family Practice Progress Note ---
Family Practice - PN: Subj Interval history: Patient did well through the night and repeat chest x-ray this morning shows resolution of his right chest atelectasis. His creatinines up to 2.6 this morning his urine output is declining. I discussed his situation at length with his yesterday she decided to make him a DNR. He is going to need NG tube and begin tube feedings. Overall is much improved from yesterday but still has poor prognosis. Exam (Progress Note) - Constitutional Vitals: Period Temp Pulse Resp BP Sys/Mcbride Pulse Ox Last 24 Hr 96.9 F-99.2 F 54-86 16-35 79-130/6-97 73-100 Exam: Objectively well-developed white male who grimaces to painful stimuli of them that I can get no response from him. Is on ventilator. Cardiovascular: Heart rates is regular with no murmurs or gallops. He appears to be in normal sinus rhythm on the monitor. Respiratory: Lungs clear to auscultation bilaterally. Abdomen: Abdomen soft and nontender to palpation. Neuro: Patient has no response to verbal stimuli. Results - Labs CBC & BMP: 07/06/16 05:04 07/06/16 05:04 Lab Results: I have reviewed the past 24 hour labs - Diagnostic Findings Procedure: Chest x-ray: report reviewed by me (Marked improvement from film of yesterday.) Assessment and Plan (1) Atrial flutter Status: Resolved Assessment and plan: 06/22/2016: Heart rate still bit elevated and he appears to be in persistent flutter 06/23/2016: Persistent atrial flutter. Current Visit: No (2) Anemia Status: Chronic Assessment and plan: 06/22/2016: Hematocrit remained stable. Patient has heme positive stool. Current Visit: Yes (3) Obstructive sleep apnea Problem details: refusing his mask Status: Chronic Assessment and plan: 06/22/2016: Patient apparently refusing to wear his CPAP mask. 06/30/2016: Patient is off the ventilator and is back on his BiPAP. 07/01/2016: Patient is tolerating BiPAP. Current Visit: Yes (4) Acute pancreatitis Status: Resolved Assessment and plan: 06/22/2016: Patient's pancreatitis has resolved. Current Visit: Yes Qualifiers: Pancreatitis type: alcohol induced (5) Aspiration pneumonitis Status: Resolved Assessment and plan: 06/23/2016: Have ordered 40 of Lasix. Blood cultures have been ordered. Will ask pulmonary to see as well. 06/28/2016: Patient is doing well in the event, is not tolerating weaning and will probably need LTAC. 06/29/2016: Patient is slowly improving. Will consult case finisher for LTAC. 06/30/2016: Patient is now off the ventilator. He will need long-term care facility. His long-term prognosis is very poor 07/01/2016: Patient's chest x-ray is improved this morning. Patient will require LTAC. Current Visit: Yes (6) Encephalopathy Status: Acute Assessment and plan: 07/05/2016: Patient's encephalopathy persists. Patient is going to require long- term care and [facility]'s been consulted if his insurance will cooperate. 07/06/2016: Patient's neuro status is unchanged. Current Visit: Yes (7) Respiratory arrest Status: Acute Assessment and plan: 07/06/2016: Patient's chest x-ray is much improved. He certainly had extensive mucous plugging in his right chest. Current Visit: Yes Quality Measures - VTE Contraindication to Pharmacological VTE Prophylaxis: Active Bleeding
--- NOTE | 2016-07-06 07:21 | EKG Report ---
Stationary ECG Study [facility] Test Date: 07/06/2016 7:21:04 AM Pat Name: ISAC AYON Department: Room: 108 Gender: M Leg Breaker: GRAYSON : 1955 Requested by: Faustino Garcia Order Number: [id number] Callie MD: OLAYINKA CONLEY Intervals [place] Rate: 63 P: 88 OR: 174 QRS: 75 QRSD: 96 T: 104 QT: 435 QTc: 443 Interpretive Statements ELECTRONIC ATRIAL PACEMAKER MINIMAL ST DEPRESSION Electronically Signed On 07-06-16 16:20:25 CDT by OLAYINKA CONLEY [email or web address]
--- NOTE | 2016-07-06 07:31 | XRay Report ---
Referring Physician: Daniel Reyes Exam: XR chest 1V portable Date: July 06, 2016 at 3:02 AM Reason: Ventilation management Comparison: Chest one view portable July 05, 2016 Findings: An endotracheal tube, right-sided PICC, feeding tube and cardiac pacing device are again in place. The cardiac silhouette is again enlarged. There are scattered opacities within both lungs, mainly within the left lower lung zone. This is concerning for pulmonary edema and atelectasis, but there could also be pneumonia. No pneumothorax is identified, but there is likely minimal bilateral pleural fluid. The osseous structures appear stable. Impression: There is significant improved aeration of the right lung with decreased right pleural fluid. PROCEDURE INTERPRETED AT [facility] DEPARTMENT OF RADIOLOGY Final Report Signed by: Dr. David Rhoades
--- NOTE | 2016-07-06 07:34 | Pulmonology Progress Note ---
Pulmonary - PN: Subj Interval history: Patient is a 60-year-old white man that is in very poor condition with obesity and chronic liver disease and heart disease. He was having more respiratory distress yesterday and had to be intubated. He was on the ventilator for several days but yesterday he was extubated. He has been breathing fairly well but he does require some suctioning. Over the weekend he had some arrhythmias with atrial fibrillation but is back in sinus rhythm now. Yesterday he developed more respiratory distress and dropped his O2 saturations. He has continued to have trouble clearing his secretions. He ultimately had to be reintubated yesterday. He developed complete atelectasis of his right lung. We did do a therapeutic bronchoscopy yesterday and clear secretions. Today his lungs are doing better and his oxygenation has improved. He is still poorly responsive and is having some ventricular ectopy. He now is a DNR. We will continue ventilatory support for now. Exam (Progress Note) - Constitutional Vitals: Period Temp Pulse Resp BP Sys/Mcbride Pulse Ox Last 24 Hr 96.9 F-99.2 F 54-86 16-35 79-130/6-97 73-100 Exam: General appearance: no distress (He is basically obtunded on the ventilator at present) - Head Head exam: Present: normal inspection, normocephalic - Eye Eye exam: Present: EOMI. Absent: scleral icterus Pupils: Present: KARLEE - ENT ENT exam: Present: other (Patient has a very narrow hypopharynx) he does have an NG tube in place. ET tube is in good position now. - Neck Neck exam: Present: other (Patient does have a large neck). Absent: lymphadenopathy, thyromegaly - Respiratory Respiratory exam: Present: He has better breath sounds now and is moving air fairly well with some minimal rhonchi. - Cardiovascular Cardiovascular exam: Present: His heart rate is very irregular with some paced beats and ventricular ectopy. - GI/Abdominal GI/Abdominal exam: Present:active bowel sounds, soft, other (Abdomen is large). Absent: organomegaly, tenderness - Extremities Exam Extremities exam: Absent: calf tenderness, edema, he will move his extremities but is very weak. - Neurological Exam Neurological exam: Present: altered (Patient is basically sedated on the ventilator now.) - Psychiatric Psychiatric exam: Present: He is not really responding that well now. - Skin Skin exam: Present: warm, dry Results - Labs CBC & BMP: 07/06/16 05:04 07/06/16 05:04 Labs: PO2 is 265 with a PCO2 of 25 and a pH of 7.62 - Diagnostic Findings Procedure: Chest x-ray: image reviewed by me, report reviewed by me (Chest x- ray does show improvement in both lungs with minimal left lower lobe infiltrate now.) Assessment and Plan (1) NICM (nonischemic cardiomyopathy) Problem details: improved EF per updated ECHO Status: Chronic Assessment and plan: The patient does have cardiomegaly and has had a component of heart failure that is better. He is having some ventricular ectopy. Current Visit: Yes (2) Paroxysmal atrial fibrillation Status: Chronic Assessment and plan: The patient has a slow irregular rhythm with some ventricular ectopy now. He does have some paced beats. Current Visit: Yes (3) Obstructive sleep apnea Problem details: refusing his mask Status: Chronic Assessment and plan: Patient is back on the ventilator now. Current Visit: Yes (4) Alcoholic cirrhosis Status: Chronic Assessment and plan: Patient had a bilirubin of 2.9 on last check. He still has a significant encephalopathy. He is poorly responsive on the ventilator at present Current Visit: Yes (5) Aspiration pneumonitis Status: Resolved Assessment and plan: Patient developed more atelectasis of his lungs and had to be put back on the ventilator yesterday. Will continue supportive care. Current Visit: Yes
[2016-07-06] MEDS: FUROSEMIDE 40 MG/4 ML VIAL IV SCH ×2 (08:40→16:01)
[2016-07-06] MEDS: THIAMINE 200 MG/2 ML VIAL IV SCH (08:41)
[2016-07-06] MEDS: LACTULOSE 20 GM/30 ML UDCUP PO SCH ×2 (08:41→20:19)
[2016-07-06] MEDS: POTASSIUM CHLORIDE 20 MEQ TABLET PO SCH (08:42)
[2016-07-06] MEDS: MIDODRINE 5 MG TABLET PO SCH ×3 (08:42→20:19)
[2016-07-06] MEDS: MEGESTROL 400 MG/10 ML UDCUP PO SCH ×2 (08:42→20:19)
[2016-07-06] MEDS: PANTOPRAZOLE 40 MG VIAL IV SCH (08:42)
[2016-07-06] MEDS: NYSTATIN CREAM 15 GM TUBE TOP SCH ×2 (08:43→20:19)
[2016-07-06] MEDS: ASCORBIC ACID 500 MG TABLET PO SCH ×2 (08:43→20:19)
[2016-07-06] MEDS: DESITIN 4OZ/NYSTATIN 15 GRAM MIXTURE PASTE TOP SCH ×2 (08:44→21:30)
[2016-07-06] MEDS: SOTALOL 80 MG TABLET PO SCH (08:44)
--- NOTE | 2016-07-06 10:25 | Cardiology Progress Note ---
I, Alice Chinchilla RN, am scribing for, and in the presence of, Thierno Nagy MD 10:24. Assessment and Plan - Time spent with patient Time spent with patient: Greater than 30 minutes (1) Paroxysmal atrial fibrillation Status: Chronic Assessment and plan: Currently he is in sinus rhythm with atrial pacing. Pulse rate well controlled and in the 60s. I think the sotalol may be creating pro arrhythmia and causing the DVT. I think we need to stop this medication for now. We may have to use a different medication to control his atrial fibrillation recurs. Continue potassium supplement and vitamin C. He is not anticoagulated due to previous significant anemia requiring blood transfusion. Echocardiogram this admission LV ejection fraction 60%, grade 1/4 diastolic dysfunction, moderate TR with PA pressure 40-45 mmHg. Current Visit: Yes (2) Respiratory failure Status: Acute Assessment and plan: Defer primary management to pulmonary. Current Visit: Yes (3) Aspiration pneumonitis Status: Resolved Current Visit: Yes (4) Hypertension Status: Chronic Assessment and plan: Currently, patient is actually hypotensive. Current Visit: No (5) Anemia Status: Chronic Assessment and plan: H&H is stable this morning at 9.5 and 28.7. Currently, he is not anticoagulated for stroke prevention due to severe anemia and has been transfused with a total of 5 units packed red blood cells this admission. Current Visit: Yes (6) Alcohol abuse Status: Chronic Current Visit: Yes (7) Alcoholic cirrhosis Status: Chronic Current Visit: Yes (8) Obesity Status: Chronic Current Visit: Yes (9) Obstructive sleep apnea Problem details: refusing his mask Status: Chronic Current Visit: Yes Cardiology - PN: Subj Interval history: PRIMARY HYSTER MACHINE OPERATOR: DR. OLAYINKA CONLEY PCP: DR. SAMMY BOONE SUMMARY: Mr. Tracy is a 60-year-old white past medical history of paroxysmal atrial fibrillation, diabetes, hypertension, tachybradycardia syndrome now status post dual-chamber pacemaker implant, CHRIS, hyperlipidemia, and EtOH abuse. He was admitted to the ICU on 06/15/16 with pancreatitis, liver failure, and hepatorenal syndrome. During admission, he has been intubated due to aspiration pneumonitis with acute respiratory failure. He has been able to be extubated and fairly stable with use of BiPAP machine. He has developed a component of encephalopathy. On 07/01/16, he was noted to have recurrence of atrial fibrillation with RVR, beta-shantelle was increased, and pulse rate has done overall well since that time. He is being evaluated for placement at [facility]. Cardiology has been consulted to manage atrial fibrillation. Patient remains intubated and sedated in the ICU this morning. Yesterday afternoon, patient had to be reintubated after worsening in respiratory effort with hypoxia. Per family request, his CODE STATUS is now DNR. Yesterday evening and throughout the night, patient has experienced frequent ventricular ectopy and tele review shows short bursts ventricular fibrillation and what appears to also be torsades. He had spontaneous conversion and has not required any emergency antiarrhythmics or defibrillation. I am strongly suspicious that this is a proarrhythmic effect of the sotalol so I'm going to stop this medication at this time. Systolic BP 80-110 mmHg. Currently not IV vasopressors for BP support. Labs reviewed. H/H stable. Potassium 3.8. Magnesium 2.1. Creatinine 2.60, GFR 32 (previously 1.60 and 59 respectively). ABG's noted. Current Medications Acetaminophen (Tylenol Tab) 650 mg PO Q6H PRN PRN Reason: Fever > 100.4 or Headache Albuterol/Ipratropium (Duoneb) 3 ml RESP TX RT Q6H [facility] Last Admin: 07/06/16 07:32 Dose: 3 ml Ascorbic Acid (Vitamin C Tab) 1,000 mg PO BID [facility] Last Admin: 07/06/16 08:43 Dose: 1,000 mg Dextrose/Water (D50) 25 gm IV PRN PRN PRN Reason: Hypoglycemia with IV access Diltiazem HCl (Cardizem Tab) 30 mg PO Q6HR [facility] Last Admin: 07/06/16 06:26 Dose: 30 mg Enoxaparin Sodium (Lovenox) 40 mg SUBCUT Q24H [facility] Last Admin: 07/05/16 14:42 Dose: 40 mg Famotidine (Pepcid Inj) 20 mg IV Q24H [facility] Last Admin: 07/06/16 01:49 Dose: 20 mg Furosemide (Lasix Inj) 40 mg IV BID DIURETIC [facility] Last Admin: 07/06/16 08:40 Dose: 40 mg Glucagon () 1 mg IM PRN PRN PRN Reason: Hypoglycemia w/o IV access Haloperidol Lactate (Haldol Inj) 5 mg IM Q6HR PRN PRN Reason: Agitation Heparin Sodium (Porcine) () 50 units IV PRN PRN PRN Reason: Flush Last Admin: 07/01/16 15:36 Dose: 50 units Phenylephrine/Sodium Chloride (Elder Synephrine Drip) 40 mg in 250 mls @ 15 mls/ hr IV TITRATE PRN; Protocol; 40 MCG/MIN PRN Reason: Hypotension Last Titration: 06/29/16 06:40 Dose: 0 mcg/min, 0 mls/hr Piperacillin Sod/Tazobactam (Sod 3,375 mg/ Sodium Chloride) 100 mls @ 25 mls/ hr IV Q8H [facility] Last Admin: 07/06/16 08:41 Dose: 25 mls/hr Propofol (Diprivan) 1,000 mg in 100 mls @ 3.293 mls/hr IV TITRATE PATRICK; 5 MCG/KG /MIN PRN Reason: Protocol Last Admin: 07/06/16 08:45 Dose: 15.18 mcg/kg/min, 10 mls/hr Magnesium Sulfate 2 gm/ Premix 50 mls @ 25 mls/hr IV .PER PROTOCOL PRN; Protocol PRN Reason: Per Protocol Last Infusion: 06/30/16 08:09 Dose: Infused Magnesium Sulfate 4 gm/ Premix 100 mls @ 25 mls/hr IV .PER PROTOCOL PRN; Protocol PRN Reason: Per Protocol Last Infusion: 06/26/16 13:00 Dose: Infused Potassium Chloride 10 meq/ (Premix) 100 mls @ 100 mls/hr IV .PER PROTOCOL PRN; Protocol PRN Reason: Per Protocol Last Infusion: 07/06/16 00:22 Dose: Infused Potassium Chloride 20 meq/ (Premix) 100 mls @ 50 mls/hr IV .PER PROTOCOL PRN; Protocol PRN Reason: Per Protocol Last Infusion: 07/01/16 08:42 Dose: Infused Albumin Human 25 gm/ Premix 100 mls @ 100 mls/hr IV Q8H [facility] Last Admin: 07/06/16 06:26 Dose: 100 mls/hr Diltiazem HCl 125 mg/ Sodium (Chloride) 125 mls @ 5 mls/hr IV TITRATE PATRICK; 5 MG /HR PRN Reason: Protocol Last Admin: 07/03/16 19:05 Dose: Not Given Phenylephrine/Sodium Chloride (Elder Synephrine Drip) 40 mg in 250 mls @ 15 mls/ hr IV TITRATE PATRICK; 40 MCG/MIN PRN Reason: Protocol Last Admin: 07/05/16 23:27 Dose: Not Given Insulin Human Regular (Humulin R) 0 unit SUBCUT Q6HR [facility] PRN Reason: Protocol Last Admin: 07/06/16 05:52 Dose: Not Given Ketoconazole (Nizoral 2% Shampoo) 1 applic TOP TuFr [facility] Last Admin: 07/02/16 21:33 Dose: 1 applic Lactulose (Chronulac) 10 gm PO BID [facility] Last Admin: 07/06/16 08:41 Dose: 10 gm Levothyroxine Sodium (Synthroid Tab) 75 mcg PO DAILY@0700 [facility] Last Admin: 07/06/16 06:28 Dose: 75 mcg Megestrol Acetate (Megace Liquid) 400 mg PO BID [facility] Last Admin: 07/06/16 08:42 Dose: 400 mg Metoclopramide HCl (Reglan Inj) 10 mg IV Q6HR [facility] Last Admin: 07/06/16 06:27 Dose: 10 mg Metoprolol Tartrate (Lopressor Inj) 5 mg IV Q4H PRN PRN Reason: heart rate > 100 Last Admin: 06/25/16 17:30 Dose: 5 mg Midodrine (Proamatine) 10 mg PO TID [facility] Last Admin: 07/06/16 08:42 Dose: 10 mg Nystatin (Mycostatin Cream) 1 applic TOP BID [facility] Last Admin: 07/06/16 08:43 Dose: 1 applic Nystatin/Zinc Oxide (Skin Protectant Mixture) 1 applic TOP BID [facility] Last Admin: 07/06/16 08:44 Dose: 1 applic Ondansetron HCl (Zofran Inj) 4 mg IV Q6H PRN PRN Reason: Nausea/Vomiting Last Admin: 06/22/16 23:12 Dose: 4 mg Oxymetazoline HCl (Afrin Nasal [place]) 2 spray BOTH NARES BID PRN PRN Reason: see label comments Last Admin: 07/03/16 16:30 Dose: 2 spray Pantoprazole Sodium (Protonix Inj) 40 mg IV DAILY [facility] Last Admin: 07/06/16 08:42 Dose: 40 mg Potassium Chloride (K Dur) 20 meq PO DAILY [facility] Last Admin: 07/06/16 08:42 Dose: 20 meq Sotalol HCl (Betapace) 120 mg PO BID [facility] Last Admin: 07/06/16 08:44 Dose: Not Given Thiamine HCl (Vitamin B1 Inj) 100 mg IV DAILY [facility] Last Admin: 07/06/16 08:41 Dose: 100 mg Exam (Progress Note) - Constitutional Vitals: Period Temp Pulse Resp BP Sys/Mcbride Pulse Ox Last 24 Hr 96.9 F-99.2 F 54-86 16-35 79-130/6-97 73-100 Exam: General appearance: Obese, no acute distress, intubated with light sedation. Appears comfortable on ventilator - Head Head exam: Present: normal inspection, normocephalic, atraumatic. Absent: hematoma, laceration - Eye Eye exam: Present: Some mild periorbital swelling. Absent: conjunctival injection, scleral icterus, laceration to eyelids Pupils: Present: KARLEE. Absent: constricted, dilated, fixed, irregular, unequal - ENT ENT exam: Present: Patient on intubated. ET tube intact - Neck Neck exam: Present: midline trachea. Absent: lymphadenopathy, meningismus, tenderness, thyromegaly - Respiratory Respiratory exam: Present: rales throughout, expirational wheeze. Absent: accessory muscle use, chest wall tenderness, rhonchi - Cardiovascular Cardiovascular exam: Present: regular rate and rhythm. Absent: carotid bruit, gallop, JVD, rubs, murmur - GI/Abdominal GI/Abdominal exam: Present: normal bowel sounds, obese. Absent: distended, firm , guarding, hernia, mass, tenderness, rebound, soft - Extremities Exam Extremities exam: Present: Mild bilateral lower extremity edema, nonpitting. No clubbing, cyanosis. - Back Exam Back exam: Unable to assess as he is supine with mechanical ventilation - Neurological Exam Neurological exam: Unable to assess as he is currently intubated and sedated. - Psychiatric Psychiatric exam: Unable to assess. Mechanically ventilated; light sedation in use. - Skin Skin exam: Present: normal color, warm, dry, intact. Absent: cyanosis, diaphoretic, rash, urticaria Result/EKG - Labs CBC & BMP: 07/06/16 05:04 07/06/16 05:04 Lab Results: I have reviewed the past 24 hour labs Labs: Laboratory Results - last 24 hr 05/03/2307/05/16 07/05/16 11:41 14:50 17:45 WBC RBC Hgb Hct MCV MCH MCHC RDW Plt Count MPV Neut % (Auto) Lymph % (Auto) [place] % (Auto) Eos % (Auto) Baso % (Auto) Neut # (Auto) Lymph # (Auto) [place] # (Auto) Eos # (Auto) Baso # (Auto) Immature Gran % Nucleated RBC % Immature Gran # Nucleated RBCs # ABG pH 7.483 H ABG pCO2 42.0 ABG pO2 44.1 L ABG HCO3 30.8 H ABG Total CO2 28.6 H ABG O2 Saturation 80.9 L ABG Base Excess 7.3 H FiO2 100.00 Sodium Potassium Chloride Carbon Dioxide Anion Gap BUN Creatinine GFR Calculation BUN/Creatinine Ratio Glucose POC Glucose 136 H 117 H Calculated Osmolality Calcium Magnesium 07/05/16 07/05/16 07/06/16 20:50 23:34 03:30 WBC RBC Hgb Hct MCV MCH MCHC RDW Plt Count MPV Neut % (Auto) Lymph % (Auto) [place] % (Auto) Eos % (Auto) Baso % (Auto) Neut # (Auto) Lymph # (Auto) [place] # (Auto) Eos # (Auto) Baso # (Auto) Immature Gran % Nucleated RBC % Immature Gran # Nucleated RBCs # ABG pH 7.625 H* ABG pCO2 25.3 L ABG pO2 265.0 H ABG HCO3 29.6 H ABG Total CO2 23.8 ABG O2 Saturation 100.0 ABG Base Excess 5.7 H FiO2 Sodium Potassium 3.7 Chloride Carbon Dioxide Anion Gap BUN Creatinine GFR Calculation BUN/Creatinine Ratio Glucose POC Glucose 117 H Calculated Osmolality Calcium Magnesium 07/06/16 07/06/16 07/06/16 05:04 05:04 05:20 WBC 15.1 H RBC 3.03 L Hgb 9.5 L Hct 28.7 L MCV 94.7 MCH 31 MCHC 33.1 RDW 18.6 H Plt Count 324 MPV 11.1 Neut % (Auto) 68.5 Lymph % (Auto) 15.7 L [place] % (Auto) 12.4 Eos % (Auto) 1.7 Baso % (Auto) 0.6 Neut # (Auto) 10.4 H Lymph # (Auto) 2.4 [place] # (Auto) 1.9 H Eos # (Auto) 0.3 Baso # (Auto) 0.1 Immature Gran % 1.1 Nucleated RBC % 0.0 Immature Gran # 0.16 Nucleated RBCs # 0.00 ABG pH ABG pCO2 ABG pO2 ABG HCO3 ABG Total CO2 ABG O2 Saturation ABG Base Excess FiO2 Sodium 144 Potassium 3.8 Chloride 103 Carbon Dioxide 27 Anion Gap 17.8 H BUN 70 H Creatinine 2.60 H GFR Calculation 32 BUN/Creatinine Ratio 26.00 H Glucose 125 H POC Glucose 111 H Calculated Osmolality 307.8 H Calcium 10.0 Magnesium 2.1 - Diagnostic Findings Procedure: Chest x-ray: image reviewed by me, report reviewed by me (07/06/16: improved aeration of right lung with decrease in pleural fluid) - EKG EKG results: interpreted by me, no acute changes EKG shows: sinus rhythm (atrial pacing; bigeminy this morning. frequent ventricular ectopy overnight) Quality Measures - VTE Contraindication to Pharmacological VTE Prophylaxis: Active Bleeding Lilo Ramos Michael, MD, personally performed the services described in this documentation, ascribed by Alice Chinchilla RN in my presence, and it is both accurate and complete .
[2016-07-06] MEDS: ENOXAPARIN 40 MG/0.4 ML SYRINGE SUBCUT SCH (13:03)
[2016-07-06] MEDS: PHENYLEPHRINE DRIP 40 MG/250 ML PREMIX IV SCH (18:21)
[2016-07-06 18:38] LABS: Albumin 4.8 G/DL (3.4-5.0); Bilirubin,Direct 1.1 MG/DL (0.0-0.20); Bilirubin,Indirect 0.9 MG/DL (0.0-1.0)
[2016-07-06] MEDS: KETOCONAZOLE 2% SHAMPOO 120 ML BOTTLE TOP SCH (21:30)
[2016-07-07] MEDS: PIPERACILLIN/TAZOBACTAM 3,375 MG in SODIUM CHLORIDE 0.9% 100 ML IV SCH ×2 (01:33→07:53)
[2016-07-07] MEDS: DILTIAZEM 30 MG TABLET PO SCH ×5 (01:34→23:40)
[2016-07-07] MEDS: METOCLOPRAMIDE 10 MG/2 ML VIAL IV SCH ×5 (01:34→23:44)
[2016-07-07] MEDS: FAMOTIDINE 20 MG/2 ML VIAL IV SCH ×2 (01:34→23:41)
[2016-07-07] MEDS: INSULIN REGULAR 100 UNIT/ML SUBCUT SCH ×5 (01:49→23:31)
[2016-07-07] MEDS: ALBUTEROL/IPRATROPIUM 3 ML NEB RESP TX SCH ×4 (01:59→19:39)
[2016-07-07 03:50] LABS: ABG Base Excess 3.7 MMOL/L (-2.5-2.5); ABG HCO3 27.8 MMOL/L (20-26); ABG Oxygen Saturation 99.9 % (95-100); ABG PCO2 32.6 MM HG (35-48); ABG PH 7.517 (7.35-7.45); ABG TCO2 24.2 MMOL/L (23-27)
[2016-07-07 05:00] LABS: Basophils # 0.1 10*3/uL (0.0-0.2); Basophils % 0.4 % (0.0-0.8); Eosinophils # 0.5 10*3/uL (0.0-0.87); Hemoglobin 8.8 GM/DL (14.0-18.0); Immature Granulocytes % 1.3 %; Immature Granulocytes Absolute 0.17 #; Lymphocytes # 1.9 10*3/uL (1.4-4.0); Lymphocytes % 14.3 % (21.2-54.2); Mean Corpuscular HGB Conc 32.6 GM/DL (32-36); Mean Corpuscular Hemoglobin 31 PG (27-34); Mean Corpuscular Volume 95.1 FL (87-102); Mean Platelet Volume 11.9 FL (9.6-12.0); Monocytes # 1.7 10*3/uL (0.11-0.8); Monocytes % 12.9 % (1.7-12.7); Neutrophils # 9.1 10*3/uL (1.4-7.4); Neutrophils % 67.1 % (38.7-73.9); Platelet Count 279 T/CUMM (130-400); Red Blood Count 2.84 MC/CUMM (3.8-5.5); Red Cell Distribution Width 18.5 % (9.3-17.3); White Blood Count 13.5 T/CUMM (4-12)
[2016-07-07 05:31] LABS: Calcium 10.7 MG/DL (8.5-10.1); Magnesium 2.5 MG/DL (1.8-2.4); Osmolality,Calculated 307.1 MOS/KG (273-304); Potassium 3.5 MMOL/L (3.5-5.1)
[2016-07-07] MEDS: PROPOFOL 1,000 MG/100 ML BOTTLE IV SCH ×2 (05:40→14:30)
[2016-07-07] MEDS: ALBUMIN 25% 25 GM in PREMIX 1 EACH IV SCH ×3 (06:29→21:10)
[2016-07-07] MEDS: LEVOTHYROXINE 75 MCG TABLET PO SCH (06:30)
[2016-07-07] MEDS: POTASSIUM CHLORIDE RIDER 10 MEQ in PREMIX 1 EACH IV PRN (07:07)
--- NOTE | 2016-07-07 07:30 | Family Practice Progress Note ---
Family Practice - PN: Subj Interval history: Patient had a good night according to the nursing staff. He is back on propofol. His chest x-ray this morning shows significant improvement. His BUN and creatinine are both a bit elevated this morning I think is a bit dry. We will reduce his Lasix to 40 mg once daily. I discussed a feeding jejunostomy tube with his yesterday and she was agreeable to proceed with that. She is aware that he is probably going to have to be in a residential. Neurology is also been consulted about his rather persistent encephalopathy. His ammonia yesterday was only 37. Exam (Progress Note) - Constitutional Vitals: Period Temp Pulse Resp BP Sys/Mcbride Pulse Ox Last 24 Hr 97.3 F-98.2 F 60-78 12-22 82-153/48-88 95-100 Exam: Objectively well-developed white male who still on the ventilator. He grimaces to painful stimuli. He is on propofol this morning. Cardiovascular: Heart rates is regular with no murmurs or gallops. He appears to be in normal sinus rhythm on the monitor. Respiratory: Lungs clear to auscultation bilaterally. Abdomen: Abdomen soft and nontender to palpation. Neuro: Patient has no response to verbal stimuli. Nurses tell me that he does move all extremities to painful stimuli but no purposeful movement. Results - Labs CBC & BMP: 07/07/16 04:19 07/07/16 04:19 Lab Results: I have reviewed the past 24 hour labs Assessment and Plan (1) Atrial flutter Status: Resolved Assessment and plan: 06/22/2016: Heart rate still bit elevated and he appears to be in persistent flutter 06/23/2016: Persistent atrial flutter. Current Visit: No (2) Anemia Status: Chronic Assessment and plan: 06/22/2016: Hematocrit remained stable. Patient has heme positive stool. Current Visit: Yes (3) Obstructive sleep apnea Problem details: refusing his mask Status: Chronic Assessment and plan: 06/22/2016: Patient apparently refusing to wear his CPAP mask. 06/30/2016: Patient is off the ventilator and is back on his BiPAP. 07/01/2016: Patient is tolerating BiPAP. Current Visit: Yes (4) Acute pancreatitis Status: Resolved Assessment and plan: 06/22/2016: Patient's pancreatitis has resolved. Current Visit: Yes Qualifiers: Pancreatitis type: alcohol induced (5) Aspiration pneumonitis Status: Resolved Assessment and plan: 06/23/2016: Have ordered 40 of Lasix. Blood cultures have been ordered. Will ask pulmonary to see as well. 06/28/2016: Patient is doing well in the event, is not tolerating weaning and will probably need LTAC. 06/29/2016: Patient is slowly improving. Will consult case management coordinator for LTAC. 06/30/2016: Patient is now off the ventilator. He will need long-term care facility. His long-term prognosis is very poor 07/01/2016: Patient's chest x-ray is improved this morning. Patient will require LTAC. Current Visit: Yes (6) Encephalopathy Status: Acute Assessment and plan: 07/05/2016: Patient's encephalopathy persists. Patient is going to require long- term care and [facility]'s been consulted if his insurance will cooperate. 07/06/2016: Patient's neuro status is unchanged. 07/07/2016: Patient's neuro status is unchanged. I have asked Dr. Garcia to see him concerning his persistent encephalopathy. Current Visit: Yes (7) Respiratory arrest Status: Acute Assessment and plan: 07/06/2016: Patient's chest x-ray is much improved. He certainly had extensive mucous plugging in his right chest. 07/07/2016: Patient is stable with ventilator support. Hopefully he can be weaned from the ventilator soon. His has made him a DNR. Current Visit: Yes Quality Measures - VTE Contraindication to Pharmacological VTE Prophylaxis: Active Bleeding
--- NOTE | 2016-07-07 07:31 | Pulmonology Progress Note ---
Pulmonary - PN: Subj Interval history: Patient is a 60-year-old white man that is in very poor condition with obesity and chronic liver disease and heart disease. He was having more respiratory distress yesterday and had to be intubated. He was on the ventilator for several days but yesterday he was extubated. He has been breathing fairly well but he does require some suctioning. Over the weekend he had some arrhythmias with atrial fibrillation but is back in sinus rhythm now. Yesterday he developed more respiratory distress and dropped his O2 saturations. He has continued to have trouble clearing his secretions. He ultimately had to be reintubated yesterday. He developed complete atelectasis of his right lung. We did do a therapeutic bronchoscopy yesterday and clear secretions. Overnight he has done fairly well and is comfortable on the ventilator. His chest x-ray is better and his oxygenation is better. He does respond a little. His heart rate and blood pressure look stable. Exam (Progress Note) - Constitutional Vitals: Period Temp Pulse Resp BP Sys/Mcbride Pulse Ox Last 24 Hr 97.3 F-98.2 F 60-78 12-22 82-153/48-88 95-100 Exam: General appearance: no distress (He is comfortable on the ventilator. He does grimace at times.) - Head Head exam: Present: normal inspection, normocephalic - Eye Eye exam: Present: EOMI. Absent: scleral icterus Pupils: Present: KARLEE - ENT ENT exam: Present: other (Patient has a very narrow hypopharynx) he does have an NG tube in place. ET tube is in good position now. - Neck Neck exam: Present: other (Patient does have a large neck). Absent: lymphadenopathy, thyromegaly - Respiratory Respiratory exam: Present: He has better breath sounds now and is moving air fairly well with some minimal rhonchi. His lungs sound better overall. - Cardiovascular Cardiovascular exam: Present: His heart rate is fairly regular rhythm now. - GI/Abdominal GI/Abdominal exam: Present: Hypoactive bowel sounds, soft, other (Abdomen is large). Absent: organomegaly, tenderness - Extremities Exam Extremities exam: Absent: calf tenderness, edema, he will move his extremities but is very weak. - Neurological Exam Neurological exam: Present: altered (Patient is basically sedated on the ventilator now.) - Psychiatric Psychiatric exam: Present: He is not really responding that well now. - Skin Skin exam: Present: warm, dry Results - Labs CBC & BMP: 07/07/16 04:19 07/07/16 04:19 Labs: His PO2 is 176 with a PCO2 of 32 and a pH of 7.51 - Diagnostic Findings Procedure: Chest x-ray: image reviewed by me, report reviewed by me (Chest x- ray looks much better with only minimal left lower lobe infiltrate.) Assessment and Plan (1) NICM (nonischemic cardiomyopathy) Problem details: improved EF per updated ECHO Status: Chronic Assessment and plan: The patient does have cardiomegaly and has had a component of heart failure that is better. His ventricular ectopy is much improved. Current Visit: Yes (2) Paroxysmal atrial fibrillation Status: Chronic Assessment and plan: The patient has a regular rhythm now and his heart rate is better. Current Visit: Yes (3) Obstructive sleep apnea Problem details: refusing his mask Status: Chronic Assessment and plan: Patient is back on the ventilator now. Current Visit: Yes (4) Alcoholic cirrhosis Status: Chronic Assessment and plan: Patient does have improvement in his liver test and his bilirubin is down to 2.0. Current Visit: Yes (5) Aspiration pneumonitis Status: Resolved Assessment and plan: Patient developed more atelectasis of his lungs and had to be put back on the ventilator yesterday. Will continue supportive care. He can probably go to [facility] any time. Current Visit: Yes
--- NOTE | 2016-07-07 07:40 | XRay Report ---
Referring Physician: Faustino Garcia MD Exam: XR chest 1V portable Date: July 07, 2016 at 3:19 AM Reason: Ventilation management Comparison: Chest one view portable July 06, 2016 Findings: An endotracheal tube, right-sided PICC, feeding tube and cardiac pacing device are again in place. The cardiac silhouette is again mildly enlarged. There are scattered opacities within the left lower lung zone. This likely represents atelectasis and possibly pneumonia. The interstitial markings are also slightly prominent bilaterally, and there could be mild pulmonary edema. No pneumothorax is identified, but there is mild left pleural fluid. The osseous structures appear stable. Impression: Possible slight increased opacification/pleural fluid at the left lower lung zone. PROCEDURE INTERPRETED AT [facility] DEPARTMENT OF RADIOLOGY Final Report Signed by: Dr. David Rhoades
[2016-07-07] MEDS: POTASSIUM CHLORIDE RIDER 20 MEQ in PREMIX 1 EACH IV PRN (07:47)
--- NOTE | 2016-07-07 09:12 | General Surgery Consult Note ---
Assessment and Plan (1) Failure to thrive Status: Chronic Assessment and plan: This patient is going to require enteral access and I have been consulted for jejunostomy placement. Jejunostomy tube in general are much more complicated and have a lot of complications associated with them such as clogging and dislodgment and the leakage. I would prefer that we try a gastrostomy tube first and try to control his gastric residuals which could just be a temporary thing and usually it is related to some sort of underlying problem that usually will resolve with time and I will continue his Reglan. I will discuss this with Dr. Eric Ray and see if they are agreeable to trying a PEG tube first which could always be exchanged out for a gastrojejunostomy tube if the PEG tube does not work. Current Visit: Yes Qualifiers: Failure to thrive age range: in adult Qualified Code(s): R62.7 - Adult failure to thrive History of Present Illness Chief complaint: Need for enteral access History of present illness: Mr. Tracy is a 60 year old male with obesity and liver disease who was reintubated during his hospital stay and is now failing to tolerate feeding in his stomach through an NG tube with increased gastric residuals. I was consulted for jejunostomy tube placement. History was obtained from nursing. The patient is on blood thinners at home but they have been held during this hospital stay. He has a persistent encephalopathy. He is planning for LTAC placement. He is a DNR. Home Medications Medication Instructions Recorded Confirmed Type Apixaban [Eliquis] 5 mg PO BID #60 tablet 12/18/15 06/15/16 Rx Aspirin Chew Tab 81 mg PO DAILY tablet 12/18/15 06/15/16 Rx Diltiazem Cd Cap [Cardizem CD] 180 mg PO DAILY #30 capsule 12/18/15 06/15/16 Rx Furosemide Tab [Lasix Tab] 40 mg PO BID DIURETIC #60 tablet 12/18/15 06/15/16 Rx Losartan [Cozaar] 25 mg PO DAILY #30 tablet 12/18/15 06/15/16 Rx Magnesium Oxide 800 mg PO BID #60 tablet 12/18/15 06/15/16 Rx Nitroglycerin Sl Tab [Nitrostat] 0.4 mg SL Q5M PRN #30 tablet 12/18/15 06/15/16 Rx Sotalol [Betapace] 80 mg PO BID #60 tablet 12/18/15 06/15/16 Rx Spironolactone [Aldactone] 50 mg PO DAILY #30 tablet 12/18/15 06/15/16 Rx Furosemide [Lasix] 40 mg PO BID 06/15/16 06/15/16 History Levothyroxine Tab [Synthroid Tab] 75 mcg PO DAILY@0700 06/15/16 06/15/16 History Potassium Chloride 20 meq PO BID 06/15/16 06/15/16 History Allergies Allergy/AdvReac Type Severity Reaction Status Date / Time lorazepam [From Ativan] AdvReac Severe Anxiety Verified 06/16/16 19:31 Medical,Surgical,& Family Hx - Medical History Cardio: History of: Cardiac Dysrhythmia (atrial fib flutter with tachybradycardia syndrome; pacemaker placement), CHF (with preserved ejection fraction), Hypertension, Pacemaker Psychological: History of: Depression Neurology: History of: TIA Endocrine: History of: Diabetes Mellitus (NIDDM) Rheumatology: History of;: Psoriasis Respiratory: History of: Obstructive Sleep Apnea Renal: History of: Renal Problems (chronic renal insufficiency) Gastrointestinal: History of: Liver Problems (cirrhosis) Musculoskeletal: History of: Musculoskeletal Problems (WEAK IN LOWER EXTREMITIES ) Hematology: History of: Anemia (chronic disease and illness), Blood Transfusion Reaction (NO REACTION) - Surgical History Cardiac Surgeries: Sugical HX of: Internal Defibrillator (pacemaker) - Family History Family History: Reports;: Family Diabetes (MOTHER), Family Heart Disease, Family Hypertension (MOTHER), Family Psychiatric Problems (MOTHER) - Social History Smoking Status: Former smoker Frequency of Alcohol Use: Frequently Type of Drug Use: None - Constitutional Constitutional: Present: as per HPI - EENT Nose, mouth and throat: Present: as per HPI - Cardiovascular Cardiovascular: Present: as per HPI - Respiratory Respiratory: Present: as per HPI - Gastrointestinal Gastrointestinal: Present: as per HPI - Genitourinary Genitourinary: Present: as per HPI - Musculoskeletal Musculoskeletal: Present: as per HPI - Neurological Neurological: Present: as per HPI - Endocrine Endocrine: Present: as per HPI Hematologic/Lymphatic: Present: as per HPI Exam - Constitutional Vitals: Period Temp Pulse Resp BP Sys/Mcbride Pulse Ox Last 24 Hr 97.2 F-98.2 F 60-78 10-22 85-153/48-88 96-100 General appearance: no acute distress, over weight - Head Head exam: Present: normal inspection, normocephalic - ENT ENT exam: Present: normal exam Mouth exam: Present: normal external inspection - Neck Neck exam: Present: normal inspection, trachea midline - Respiratory Respiratory exam: Present: clear to auscultation bilaterally. Absent: accessory muscle use, chest wall tenderness - Cardiovascular Cardiovascular exam: Present: RRR. Absent: systolic murmur, tachycardia - GI/Abdominal GI/Abdominal exam: Present: soft. Absent: tenderness, rebound - Extremities Exam Extremities exam: Present: normal inspection, normal capillary refill - Back Exam Back exam: Present: normal inspection - Neurological Exam Neurological exam: Present: alert, oriented X3 Speech: Present: normal - Skin Skin exam: Present: normal color, warm Quality Measures - VTE Contraindication to Pharmacological VTE Prophylaxis: Active Bleeding Results - Labs CBC & BMP: 07/07/16 04:19 07/07/16 04:19
[2016-07-07] MEDS: ASCORBIC ACID 500 MG TABLET PO SCH ×2 (10:03→21:09)
[2016-07-07] MEDS: MEGESTROL 400 MG/10 ML UDCUP PO SCH ×2 (10:03→21:09)
[2016-07-07] MEDS: LACTULOSE 20 GM/30 ML UDCUP PO SCH ×2 (10:03→21:09)
[2016-07-07] MEDS: MIDODRINE 5 MG TABLET PO SCH ×3 (10:04→21:09)
[2016-07-07] MEDS: PANTOPRAZOLE 40 MG VIAL IV SCH (10:04)
[2016-07-07] MEDS: THIAMINE 200 MG/2 ML VIAL IV SCH (10:05)
[2016-07-07] MEDS: FUROSEMIDE 40 MG/4 ML VIAL IV SCH (10:08)
[2016-07-07] MEDS: DESITIN 4OZ/NYSTATIN 15 GRAM MIXTURE PASTE TOP SCH ×2 (10:24→21:11)
[2016-07-07] MEDS: POTASSIUM CHLORIDE 20 MEQ TABLET PO SCH (10:24)
[2016-07-07] MEDS: NYSTATIN CREAM 15 GM TUBE TOP SCH ×2 (10:24→21:11)
[2016-07-07] MEDS: ENOXAPARIN 40 MG/0.4 ML SYRINGE SUBCUT SCH (13:30)
--- NOTE | 2016-07-07 13:39 | Cardiology Progress Note ---
Amor Ramos Vanessa, RN, am scribing for, and in the presence of, Thierno Nagy MD 13:39. Assessment and Plan - Time spent with patient Time spent with patient: Greater than 30 minutes (1) Paroxysmal atrial fibrillation Status: Chronic Assessment and plan: Currently he is in sinus rhythm with atrial pacing. Pulse rate well controlled and in the 60s. Sotalol discontinued yesterday, and patient has had no recurrence of VT/VF or other dysrhythmia. Continue potassium supplement and vitamin C. He is not anticoagulated due to previous significant anemia requiring blood transfusion. Echocardiogram this admission LV ejection fraction 60%, grade 1/4 diastolic dysfunction, moderate TR with PA pressure 40-45 mmHg. Current Visit: Yes (2) Respiratory failure Status: Acute Assessment and plan: Defer primary management to pulmonary. Current Visit: Yes (3) Aspiration pneumonitis Status: Resolved Current Visit: Yes (4) Hypertension Status: Chronic Assessment and plan: Currently, patient is actually hypotensive. Current Visit: No (5) Anemia Status: Chronic Assessment and plan: H&H remained stable. Currently, he is not anticoagulated for stroke prevention due to severe anemia and has been transfused with a total of 5 units packed red blood cells this admission. Current Visit: Yes (6) Alcohol abuse Status: Chronic Current Visit: Yes (7) Alcoholic cirrhosis Status: Chronic Current Visit: Yes (8) Obesity Status: Chronic Current Visit: Yes (9) Obstructive sleep apnea Problem details: refusing his mask Status: Chronic Current Visit: Yes Cardiology - PN: Subj Interval history: PRIMARY HOME THEATER SPECIALIST: DR. OLAYINKA OCNLEY PCP: DR. SAMMY BOONE SUMMARY: Mr. Tracy is a 60-year-old white past medical history of paroxysmal atrial fibrillation, diabetes, hypertension, tachybradycardia syndrome now status post dual-chamber pacemaker implant, CHRIS, hyperlipidemia, and EtOH abuse. He was admitted to the ICU on 06/15/16 with pancreatitis, liver failure, and hepatorenal syndrome. During admission, he has been intubated due to aspiration pneumonitis with acute respiratory failure. He has been able to be extubated and fairly stable with use of BiPAP machine. He has developed a component of encephalopathy. On 07/01/16, he was noted to have recurrence of atrial fibrillation with RVR, beta-shantelle was increased, and pulse rate has done overall well since that time. Overnight on 07/05, patient experienced spontaneous, self limiting ventricular fibrillation and torsades. Sotalol was discontinued, and there has been no recurrent ectopy since that time. I think the arrhythmia was a proarrhythmic effect of sotalol. He is being evaluated for placement at [facility]. Cardiology was consulted to manage atrial fibrillation. Today, patient remains intubated and sedated. He is being evaluated for permanent feeding tube placement. Sinus rhythm overnight with atrial pacing at times. There has been no recurrent ventricular ectopy or sustained dysrhythmia. Blood pressure has been overall stable. Labs reviewed. WBC 13,500. H&H 8.8 and 27.0. Potassium is 3.5 magnesium 2.5. Creatinine continues to trend up and today is 3.2 with GFR of 25 Current Medications Acetaminophen (Tylenol Tab) 650 mg PO Q6H PRN PRN Reason: Fever > 100.4 or Headache Albuterol/Ipratropium (Duoneb) 3 ml RESP TX RT Q6H [facility] Last Admin: 07/07/16 07:33 Dose: 3 ml Ascorbic Acid (Vitamin C Tab) 1,000 mg PO BID [facility] Last Admin: 07/06/16 20:19 Dose: 1,000 mg Dextrose/Water (D50) 25 gm IV PRN PRN PRN Reason: Hypoglycemia with IV access Diltiazem HCl (Cardizem Tab) 30 mg PO Q6HR [facility] Last Admin: 07/07/16 06:29 Dose: 30 mg Enoxaparin Sodium (Lovenox) 40 mg SUBCUT Q24H [facility] Last Admin: 07/06/16 13:03 Dose: 40 mg Famotidine (Pepcid Inj) 20 mg IV Q24H [facility] Last Admin: 07/07/16 01:34 Dose: 20 mg Furosemide (Lasix Inj) 40 mg IV DAILY [facility] Glucagon () 1 mg IM PRN PRN PRN Reason: Hypoglycemia w/o IV access Haloperidol Lactate (Haldol Inj) 5 mg IM Q6HR PRN PRN Reason: Agitation Heparin Sodium (Porcine) () 50 units IV PRN PRN PRN Reason: Flush Last Admin: 07/01/16 15:36 Dose: 50 units Phenylephrine/Sodium Chloride (Elder Synephrine Drip) 40 mg in 250 mls @ 15 mls/ hr IV TITRATE PRN; Protocol; 40 MCG/MIN PRN Reason: Hypotension Last Titration: 06/29/16 06:40 Dose: 0 mcg/min, 0 mls/hr Piperacillin Sod/Tazobactam (Sod 3,375 mg/ Sodium Chloride) 100 mls @ 25 mls/ hr IV Q8H [facility] Last Admin: 07/07/16 07:53 Dose: 25 mls/hr Propofol (Diprivan) 1,000 mg in 100 mls @ 3.293 mls/hr IV TITRATE [facility]; 5 MCG/KG /MIN PRN Reason: Protocol Last Admin: 07/07/16 05:40 Dose: 15.18 mcg/kg/min, 10 mls/hr Magnesium Sulfate 2 gm/ Premix 50 mls @ 25 mls/hr IV .PER PROTOCOL PRN; Protocol PRN Reason: Per Protocol Last Infusion: 06/30/16 08:09 Dose: Infused Magnesium Sulfate 4 gm/ Premix 100 mls @ 25 mls/hr IV .PER PROTOCOL PRN; Protocol PRN Reason: Per Protocol Last Infusion: 06/26/16 13:00 Dose: Infused Potassium Chloride 10 meq/ (Premix) 100 mls @ 100 mls/hr IV .PER PROTOCOL PRN; Protocol PRN Reason: Per Protocol Last Admin: 07/07/16 07:07 Dose: 100 mls/hr Potassium Chloride 20 meq/ (Premix) 100 mls @ 50 mls/hr IV .PER PROTOCOL PRN; Protocol PRN Reason: Per Protocol Last Admin: 07/07/16 07:47 Dose: 50 mls/hr Diltiazem HCl 125 mg/ Sodium (Chloride) 125 mls @ 5 mls/hr IV TITRATE PATRICK; 5 MG /HR PRN Reason: Protocol Last Admin: 07/03/16 19:05 Dose: Not Given Phenylephrine/Sodium Chloride (Elder Synephrine Drip) 40 mg in 250 mls @ 15 mls/ hr IV TITRATE [facility]; 40 MCG/MIN PRN Reason: Protocol Last Admin: 07/06/16 18:21 Dose: Not Given Albumin Human 25 gm/ Premix 100 mls @ 100 mls/hr IV Q8H [facility] Last Infusion: 07/07/16 07:06 Dose: Infused Insulin Human Regular (Humulin R) 0 unit SUBCUT Q6HR [facility] PRN Reason: Protocol Last Admin: 07/07/16 06:29 Dose: Not Given Ketoconazole (Nizoral 2% Shampoo) 1 applic TOP TuFr [facility] Last Admin: 07/06/16 21:30 Dose: 1 applic Lactulose (Chronulac) 10 gm PO BID [facility] Last Admin: 07/06/16 20:19 Dose: 10 gm Levothyroxine Sodium (Synthroid Tab) 75 mcg PO DAILY@0700 [facility] Last Admin: 07/07/16 06:30 Dose: 75 mcg Megestrol Acetate (Megace Liquid) 400 mg PO BID [facility] Last Admin: 07/06/16 20:19 Dose: 400 mg Metoclopramide HCl (Reglan Inj) 10 mg IV Q6HR [facility] Last Admin: 07/07/16 06:30 Dose: 10 mg Metoprolol Tartrate (Lopressor Inj) 5 mg IV Q4H PRN PRN Reason: heart rate > 100 Last Admin: 06/25/16 17:30 Dose: 5 mg Midodrine (Proamatine) 10 mg PO TID [facility] Last Admin: 07/06/16 20:19 Dose: 10 mg Nystatin (Mycostatin Cream) 1 applic TOP BID [facility] Last Admin: 07/06/16 20:19 Dose: 1 applic Nystatin/Zinc Oxide (Skin Protectant Mixture) 1 applic TOP BID [facility] Last Admin: 07/06/16 21:30 Dose: 1 applic Ondansetron HCl (Zofran Inj) 4 mg IV Q6H PRN PRN Reason: Nausea/Vomiting Last Admin: 06/22/16 23:12 Dose: 4 mg Oxymetazoline HCl (Afrin Nasal [place]) 2 spray BOTH NARES BID PRN PRN Reason: see label comments Last Admin: 07/03/16 16:30 Dose: 2 spray Pantoprazole Sodium (Protonix Inj) 40 mg IV DAILY [facility] Last Admin: 07/06/16 08:42 Dose: 40 mg Potassium Chloride (K Dur) 20 meq PO DAILY [facility] Last Admin: 07/06/16 08:42 Dose: 20 meq Thiamine HCl (Vitamin B1 Inj) 100 mg IV DAILY [facility] Last Admin: 07/06/16 08:41 Dose: 100 mg Exam (Progress Note) - Constitutional Vitals: Period Temp Pulse Resp BP Sys/Mcbride Pulse Ox Last 24 Hr 97.2 F-98.2 F 60-78 10-22 85-153/48-88 96-100 Exam: General appearance: Obese, no acute distress, intubated with light sedation. - Head Head exam: Present: normal inspection, normocephalic, atraumatic. Absent: hematoma, laceration - Eye Eye exam: Present: Some mild periorbital swelling. Absent: conjunctival injection, scleral icterus, laceration to eyelids Pupils: Present: KARLEE. Absent: constricted, dilated, fixed, irregular, unequal - ENT ENT exam: Present: ET tube intact - Neck Neck exam: Present: midline trachea. Absent: lymphadenopathy, meningismus, tenderness, thyromegaly - Respiratory Respiratory exam: Present: rales throughout, wheezing has improved. Absent: accessory muscle use, chest wall tenderness, rhonchi - Cardiovascular Cardiovascular exam: Present: regular rate and rhythm. Absent: carotid bruit, gallop, JVD, rubs, murmur, tachycardia, bradycardia - GI/Abdominal GI/Abdominal exam: Present: normal bowel sounds, obese. Absent: distended, firm , guarding, hernia, mass, tenderness, rebound, soft - Extremities Exam Extremities exam: Present: No clubbing, cyanosis, and no edema - Back Exam Back exam: Unable to assess as he is supine with mechanical ventilation - Neurological Exam Neurological exam: Unable to assess as he is currently intubated and sedated. - Psychiatric Psychiatric exam: Unable to assess. Mechanically ventilated; light sedation in use. - Skin Skin exam: Present: normal color, warm, dry, intact. Absent: cyanosis, diaphoretic, rash, urticaria Result/EKG - Labs CBC & BMP: 07/07/16 04:19 07/07/16 04:19 Lab Results: I have reviewed the past 24 hour labs Labs: Laboratory Results - last 24 hr 07/06/16 07/06/16 07/06/16 12:23 17:21 17:21 WBC RBC Hgb Hct MCV MCH MCHC RDW Plt Count MPV Neut % (Auto) Lymph % (Auto) Carter % (Auto) Eos % (Auto) Baso % (Auto) Neut # (Auto) Lymph # (Auto) Carter # (Auto) Eos # (Auto) Baso # (Auto) Immature Gran % Nucleated RBC % Immature Gran # Nucleated RBCs # ABG pH ABG pCO2 ABG pO2 ABG HCO3 ABG Total CO2 ABG O2 Saturation ABG Base Excess Sodium Potassium Chloride Carbon Dioxide Anion Gap BUN Creatinine GFR Calculation BUN/Creatinine Ratio Glucose POC Glucose 130 H Calculated Osmolality Calcium Magnesium Total Bilirubin 2.00 H Direct Bilirubin 1.10 H Indirect Bilirubin 0.9 AST 25 ALT 13 L Alkaline Phosphatase 65 Ammonia 37 H Total Protein 7.0 Albumin 4.8 07/06/16 07/06/16 07/07/16 17:42 23:20 03:35 WBC RBC Hgb Hct MCV MCH MCHC RDW Plt Count MPV Neut % (Auto) Lymph % (Auto) Carter % (Auto) Eos % (Auto) Baso % (Auto) Neut # (Auto) Lymph # (Auto) Carter # (Auto) Eos # (Auto) Baso # (Auto) Immature Gran % Nucleated RBC % Immature Gran # Nucleated RBCs # ABG pH 7.517 H ABG pCO2 32.6 L ABG pO2 176.0 H ABG HCO3 27.8 H ABG Total CO2 24.2 ABG O2 Saturation 99.9 ABG Base Excess 3.7 H Sodium Potassium Chloride Carbon Dioxide Anion Gap BUN Creatinine GFR Calculation BUN/Creatinine Ratio Glucose POC Glucose 137 H 133 H Calculated Osmolality Calcium Magnesium Total Bilirubin Direct Bilirubin Indirect Bilirubin AST ALT Alkaline Phosphatase Ammonia Total Protein Albumin 07/07/16 07/07/16 07/07/16 04:19 04:19 05:49 WBC 13.5 H RBC 2.84 L Hgb 8.8 L Hct 27.0 L MCV 95.1 MCH 31 MCHC 32.6 RDW 18.5 H Plt Count 279 MPV 11.9 Neut % (Auto) 67.1 Lymph % (Auto) 14.3 L Carter % (Auto) 12.9 H Eos % (Auto) 4.0 Baso % (Auto) 0.4 Neut # (Auto) 9.1 H Lymph # (Auto) 1.9 Carter # (Auto) 1.7 H Eos # (Auto) 0.5 Baso # (Auto) 0.1 Immature Gran % 1.3 Nucleated RBC % 0.0 Immature Gran # 0.17 Nucleated RBCs # 0.00 ABG pH ABG pCO2 ABG pO2 ABG HCO3 ABG Total CO2 ABG O2 Saturation ABG Base Excess Sodium 142 Potassium 3.5 Chloride 101 Carbon Dioxide 25 Anion Gap 19.5 H BUN 81 H D Creatinine 3.20 H GFR Calculation 25 BUN/Creatinine Ratio 25.00 H Glucose 125 H POC Glucose 136 H Calculated Osmolality 307.1 H Calcium 10.7 H Magnesium 2.5 H Total Bilirubin Direct Bilirubin Indirect Bilirubin AST ALT Alkaline Phosphatase Ammonia Total Protein Albumin - Diagnostic Findings Procedure: Chest x-ray: image reviewed by me, report reviewed by me (07/07/16: Increasing opacification and pleural fluid at left lower lung field) - EKG EKG results: interpreted by me, no acute changes EKG shows: sinus rhythm (Atrial pacing) Quality Measures - VTE Contraindication to Pharmacological VTE Prophylaxis: Active Bleeding Lilo Ramos Michael, MD, personally performed the services described in this documentation, ascribed by Alice Chinchilla RN in my presence, and it is both accurate and complete 339 .
--- NOTE | 2016-07-07 16:31 | Neurology Consult Note ---
History of Present Illness History of present illness: Patient is on vent and unable to provide me any history. History basically obtained from the chart. Mr. Tracy is a 60 year old male with obesity, respiratory failure and alcoholic liver disease who was reintubated during his hospital stay and is now failing to tolerate feeding in his stomach through an NG tube with increased gastric residuals. I was consulted for jejunostomy tube placement. History was obtained from nursing. The patient is on blood thinners at home but they have been held during this hospital stay. He has a persistent encephalopathy. He is planning for LTAC placement. He is a DNR. He is not waking up and not following any commands. When he was extubated first time he was not following command at that point either. He had CT on on revealed no acute abnormalities. Home Medications Medication Instructions Recorded Confirmed Type Apixaban [Eliquis] 5 mg PO BID #60 tablet 12/18/15 06/15/16 Rx Aspirin Chew Tab 81 mg PO DAILY tablet 12/18/15 06/15/16 Rx Diltiazem Cd Cap [Cardizem CD] 180 mg PO DAILY #30 capsule 12/18/15 06/15/16 Rx Furosemide Tab [Lasix Tab] 40 mg PO BID DIURETIC #60 tablet 12/18/15 06/15/16 Rx Losartan [Cozaar] 25 mg PO DAILY #30 tablet 12/18/15 06/15/16 Rx Magnesium Oxide 800 mg PO BID #60 tablet 12/18/15 06/15/16 Rx Nitroglycerin Sl Tab [Nitrostat] 0.4 mg SL Q5M PRN #30 tablet 12/18/15 06/15/16 Rx Sotalol [Betapace] 80 mg PO BID #60 tablet 12/18/15 06/15/16 Rx Spironolactone [Aldactone] 50 mg PO DAILY #30 tablet 12/18/15 06/15/16 Rx Furosemide [Lasix] 40 mg PO BID 06/15/16 06/15/16 History Levothyroxine Tab [Synthroid Tab] 75 mcg PO DAILY@0700 06/15/16 06/15/16 History Potassium Chloride 20 meq PO BID 06/15/16 06/15/16 History Allergies Allergy/AdvReac Type Severity Reaction Status Date / Time lorazepam [From Ativan] AdvReac Severe Anxiety Verified 06/16/16 19:31 ROS unobtainable: due to endotracheal tube, due to mental status Medical,Surgical,& Family Hx - Medical History Cardio: History of: Cardiac Dysrhythmia (atrial fib flutter with tachybradycardia syndrome; pacemaker placement), CHF (with preserved ejection fraction), Hypertension, Pacemaker Psychological: History of: Depression Neurology: History of: TIA Endocrine: History of: Diabetes Mellitus (NIDDM) Rheumatology: History of;: Psoriasis Respiratory: History of: Obstructive Sleep Apnea Renal: History of: Renal Problems (chronic renal insufficiency) Gastrointestinal: History of: Liver Problems (cirrhosis) Musculoskeletal: History of: Musculoskeletal Problems (WEAK IN LOWER EXTREMITIES ) Hematology: History of: Anemia (chronic disease and illness), Blood Transfusion Reaction (NO REACTION) - Surgical History Cardiac Surgeries: Sugical HX of: Internal Defibrillator (pacemaker) - Family History Family History: Reports;: Family Diabetes (MOTHER), Family Heart Disease, Family Hypertension (MOTHER), Family Psychiatric Problems (MOTHER) - Social History Smoking Status: Former smoker Frequency of Alcohol Use: Frequently Type of Drug Use: None Exam - Constitutional Vitals: Period Temp Pulse Resp BP Sys/Mcbride Pulse Ox Last 24 Hr 97.2 F-98.2 F 60-85 10-22 108-153/54-88 98-100 Exam: GENERAL: Patient is in no acute distress. NECK: Neck is supple. There is no JVD. No carotid bruits present. No thyroid masses. CVS: First and second heart sounds are normal. There is no S3 present. Regular rate and rhythm. RESPIRATORY: Lungs are clear to auscultation without any rales or rhonchi. ABDOMEN: Soft and non-tender. Bowel sounds are present. There is no hepatosplenomegaly. EXT: There is no palpable edema. Peripheral pulses are present. Skin: No rashes Central Nervous system: General: Unresponsive Speech: None Comprehension: None Facial expressions: Normal Cranial Nerves: Pupils are sluggish but reactive. Doll's head eye movements are positive. No facial asymmetry is seen. Motor: Strength cannot be assessed. Sensory: Cannot be a Reflexes: 1+ and symmetrical Cerebellar function: Cannot be assessed Toes: Equivocal Gait: Cannot be assessed Results - Labs CBC & BMP: 07/07/16 04:19 07/07/16 04:19 Assessment and Plan (1) Encephalopathy Status: Acute Assessment and plan: This is likely multifactorial including hypoxic/anoxic/infectious etiology. Repeat CAT scan in the morning EEG in the morning Thank you for the consult Current Visit: Yes
[2016-07-07] MEDS: PHENYLEPHRINE DRIP 40 MG/250 ML PREMIX IV SCH (16:35)
[2016-07-08] MEDS: PROPOFOL 1,000 MG/100 ML BOTTLE IV SCH ×3 (00:30→17:18)
[2016-07-08] MEDS: ALBUTEROL/IPRATROPIUM 3 ML NEB RESP TX SCH ×4 (01:11→19:47)
[2016-07-08 03:05] LABS: ABG Base Excess 2.8 MMOL/L (-2.5-2.5); ABG Oxygen Saturation 93.3 % (95-100); ABG PCO2 34.6 MM HG (35-48); ABG PH 7.493 (7.35-7.45); ABG PO2 69.8 MM HG (80-95); Allen Test Positive; Pt O2 Delivery Device Ventilator
[2016-07-08] MEDS: DILTIAZEM 30 MG TABLET PO SCH ×3 (05:47→17:08)
[2016-07-08] MEDS: ALBUMIN 25% 25 GM in PREMIX 1 EACH IV SCH ×3 (05:47→21:53)
[2016-07-08] MEDS: INSULIN REGULAR 100 UNIT/ML SUBCUT SCH ×3 (05:54→18:21)
[2016-07-08 05:58] LABS: Basophils # 0.1 10*3/uL (0.0-0.2); Basophils % 0.5 % (0.0-0.8); Eosinophils # 0.6 10*3/uL (0.0-0.87); Eosinophils % 5.1 % (0.00-10.9); Hematocrit 31.3 VOL% (42.0-52.0); Hemoglobin 9.8 GM/DL (14.0-18.0); Immature Granulocytes % 1.5 %; Immature Granulocytes Absolute 0.17 #; Lymphocytes # 1.8 10*3/uL (1.4-4.0); Lymphocytes % 15.7 % (21.2-54.2); Mean Corpuscular HGB Conc 31.3 GM/DL (32-36); Mean Corpuscular Hemoglobin 31 PG (27-34); Mean Corpuscular Volume 98.4 FL (87-102); Mean Platelet Volume 12.2 FL (9.6-12.0); Monocytes # 1.9 10*3/uL (0.11-0.8); Monocytes % 16.8 % (1.7-12.7); Neutrophils # 6.8 10*3/uL (1.4-7.4); Neutrophils % 60.4 % (38.7-73.9); Platelet Count 230 T/CUMM (130-400); Red Blood Count 3.18 MC/CUMM (3.8-5.5); Red Cell Distribution Width 17.6 % (9.3-17.3); White Blood Count 11.2 T/CUMM (4-12)
--- NOTE | 2016-07-08 06:08 | CT Report ---
CT of the head without contrast. Indication: Encephalopathy. Altered mental status. Comparison: June 24, 2016. There is calcific plaque present within the intracranial internal carotid arteries. There is generalized prominence of the ventricles and sulci consistent with atrophy, prominent for the patient's age. There is no mass effect, midline shift, or area of hemorrhage. No cortical infarcts are seen at this time. There is no evidence of cerebral edema at this time. Within the white matter of both cerebral hemispheres, there are mild areas of low density, likely related to chronic microvascular ischemia. The calvarium is intact. There is fluid in the nasopharynx. There is mucosal thickening within the ethmoid and sphenoid sinuses. There is partial opacification of both mastoids. The patient is intubated. Impression: Generalized atrophy. White matter changes likely related to chronic microvascular ischemia. No acute intracranial process or interval change is seen. The CT exam was performed using one or more of the following dose reduction techniques: Automated exposure control, adjustment of the mA and/or kV according to patient size, or use of iterative reconstruction technique. PROCEDURE INTERPRETED AT [facility] DEPARTMENT OF RADIOLOGY Final Report Signed by: Dr. Bina Stewart
[2016-07-08] MEDS: METOCLOPRAMIDE 10 MG/2 ML VIAL IV SCH ×3 (06:10→17:40)
[2016-07-08 06:40] LABS: Calcium 10.7 MG/DL (8.5-10.1); Magnesium 2.3 MG/DL (1.8-2.4); Osmolality,Calculated 303.5 MOS/KG (273-304); Potassium 3.8 MMOL/L (3.5-5.1)
[2016-07-08 07:01] LABS: Band Neutrophils 8 % (0-10); Eosinophils 3 % (0-10); Hypochromasia 1+; Lymphocytes 12 % (20-55); Myelocytes 2 %; Platelet Estimate Adequate; Segmented Neutrophils 68 % (50-85); Total Cells Counted 100
[2016-07-08] MEDS: LEVOTHYROXINE 75 MCG TABLET PO SCH (07:32)
[2016-07-08] MEDS: POTASSIUM CHLORIDE RIDER 20 MEQ in PREMIX 1 EACH IV PRN (07:33)
--- NOTE | 2016-07-08 08:00 | XRay Report ---
Referring Physician: Faustino Garcia MD Exam: XR chest 1V portable Date: July 08, 2016 at 3:02 AM Reason: Ventilation management Comparison: Chest one view portable July 07, 2016 Findings: A right-sided PICC, endotracheal tube, feeding tube and cardiac pacing device are again in place. The cardiac silhouette is again mildly enlarged, and there is mild elevation of the right hemidiaphragm. There are scattered opacities within both lower lung zones, which could reflect atelectasis or pneumonia. The interstitial markings are also slightly prominent bilaterally, which could reflect mild pulmonary edema. No pneumothorax is identified. The osseous structures appear stable. Impression: There is improved aeration of the left lower lung zone, but there may be slight increased opacification/atelectasis at the right lower lung zone. PROCEDURE INTERPRETED AT [facility] DEPARTMENT OF RADIOLOGY Final Report Signed by: Dr. David Rhoades
[2016-07-08] MEDS: PANTOPRAZOLE 40 MG VIAL IV SCH (08:01)
[2016-07-08] MEDS: THIAMINE 200 MG/2 ML VIAL IV SCH (08:03)
[2016-07-08] MEDS: FUROSEMIDE 40 MG/4 ML VIAL IV SCH (08:06)
[2016-07-08] MEDS: MIDODRINE 5 MG TABLET PO SCH ×3 (08:09→21:53)
[2016-07-08] MEDS: ASCORBIC ACID 500 MG TABLET PO SCH ×2 (08:09→21:52)
[2016-07-08] MEDS: MEGESTROL 400 MG/10 ML UDCUP PO SCH ×2 (08:09→21:53)
[2016-07-08] MEDS: POTASSIUM CHLORIDE 20 MEQ TABLET PO SCH (08:09)
[2016-07-08] MEDS: LACTULOSE 20 GM/30 ML UDCUP PO SCH ×2 (08:09→21:53)
[2016-07-08] MEDS: DESITIN 4OZ/NYSTATIN 15 GRAM MIXTURE PASTE TOP SCH ×2 (08:09→21:53)
[2016-07-08] MEDS: NYSTATIN CREAM 15 GM TUBE TOP SCH ×2 (08:10→21:53)
--- NOTE | 2016-07-08 08:10 | Pulmonology Progress Note ---
Pulmonary - PN: Subj Interval history: Patient is a 60-year-old white man that is in very poor condition with obesity and chronic liver disease and heart disease. He was having more respiratory distress yesterday and had to be intubated. He was on the ventilator for several days but yesterday he was extubated. He has been breathing fairly well but he does require some suctioning. Over the weekend he had some arrhythmias with atrial fibrillation but is back in sinus rhythm now. Yesterday he developed more respiratory distress and dropped his O2 saturations. He has continued to have trouble clearing his secretions. He ultimately had to be reintubated yesterday. He developed complete atelectasis of his right lung. We did do a therapeutic bronchoscopy and clear secretions. His chest x-ray has improved nicely. He continues to remain fairly stable on the ventilator. He is getting a neurological workup now. He will respond just a little. He actually did some CPAP yesterday. His oxygenation has improved and his chest x-ray is much better. Exam (Progress Note) - Constitutional Vitals: Period Temp Pulse Resp BP Sys/Mcbride Pulse Ox Last 24 Hr 97.3 F-98 F 60-87 10-18 90-163/54-107 97-100 Exam: General appearance: no distress (He is comfortable on the ventilator. He does grimace at times.) - Head Head exam: Present: normal inspection, normocephalic - Eye Eye exam: Present: EOMI. Absent: scleral icterus Pupils: Present: KARLEE - ENT ENT exam: Present: other (Patient has a very narrow hypopharynx) he does have an NG tube in place. ET tube is in good position now. - Neck Neck exam: Present: other (Patient does have a large neck). Absent: lymphadenopathy, thyromegaly - Respiratory Respiratory exam: Present: He has good breath sounds bilaterally and his lungs sound better with just minimal rhonchi. - Cardiovascular Cardiovascular exam: Present: His heart rate is fairly regular rhythm now. - GI/Abdominal GI/Abdominal exam: Present: Hypoactive bowel sounds, soft, other (Abdomen is large). Absent: organomegaly, tenderness - Extremities Exam Extremities exam: Absent: calf tenderness, edema, he will move his extremities but is very weak. - Neurological Exam Neurological exam: Present: altered (Patient will respond somewhat has some respiratory effort but is still not very alert.) - Psychiatric Psychiatric exam: Present: He is not really responding that well now. - Skin Skin exam: Present: warm, dry Results - Labs CBC & BMP: 07/08/16 05:42 07/08/16 05:42 Labs: His PO2 69 with a PCO2 34 and a pH of 7.49 - Diagnostic Findings Procedure: Chest x-ray: image reviewed by me, report reviewed by me (Chest x- ray shows improvement in the bibasilar infiltrates) Assessment and Plan (1) NICM (nonischemic cardiomyopathy) Problem details: improved EF per updated ECHO Status: Chronic Assessment and plan: The patient does have cardiomegaly and has had a component of heart failure that is better. His ventricular ectopy is much improved. Current Visit: Yes (2) Paroxysmal atrial fibrillation Status: Chronic Assessment and plan: The patient has a regular rhythm now and his heart rate is better. His ectopy is much improved. Current Visit: Yes (3) Obstructive sleep apnea Problem details: refusing his mask Status: Chronic Assessment and plan: Patient is back on the ventilator now. Current Visit: Yes (4) Alcoholic cirrhosis Status: Chronic Assessment and plan: Patient does have improvement in his liver test and his bilirubin is down to 2.0. Current Visit: Yes (5) Aspiration pneumonitis Status: Resolved Assessment and plan: Patient developed more atelectasis of his lungs and had to be put back on the ventilator yesterday. His lungs look much better now. He is starting to do some CPAP trials. Current Visit: Yes
--- NOTE | 2016-07-08 09:26 | Neurology Progress Note ---
Neurology - PN : Subjective Interval history: Patient continued to remain same. Not waking up much. EEG is showing generalized slowing no seizure-like activity. CT of the head reveals no acute abnormalities. Exam (Progress Note) - Constitutional Vitals: Period Temp Pulse Resp BP Sys/Mcbride Pulse Ox Last 24 Hr 97.3 F-98 F 60-87 10-18 90-163/56-107 97-100 Exam: GENERAL: Patient is in no acute distress. NECK: Neck is supple. There is no JVD. No carotid bruits present. No thyroid masses. CVS: First and second heart sounds are normal. There is no S3 present. Regular rate and rhythm. RESPIRATORY: Lungs are clear to auscultation without any rales or rhonchi. ABDOMEN: Soft and non-tender. Bowel sounds are present. There is no hepatosplenomegaly. EXT: There is no palpable edema. Peripheral pulses are present. Skin: No rashes Central Nervous system: General: Unresponsive Speech: None Comprehension: None Facial expressions: Normal Cranial Nerves: Pupils are sluggish but reactive. Doll's head eye movements are positive. No facial asymmetry is seen. Motor: Strength cannot be assessed. Sensory: Cannot be a Reflexes: 1+ and symmetrical Cerebellar function: Cannot be assessed Toes: Equivocal Gait: Cannot be assessed Results - Labs CBC & BMP: 07/08/16 05:42 07/08/16 05:42 Assessment and Plan (1) Encephalopathy Status: Acute Assessment and plan: This is likely multifactorial including hypoxic/anoxic/infectious etiology. Continue current supportive management at this time. Current Visit: Yes Quality Measures - VTE Contraindication to Pharmacological VTE Prophylaxis: Active Bleeding
[2016-07-08] MEDS: SODIUM CHLORIDE 0.9% IV SCH ×2 (09:32→17:05)
[2016-07-08] MEDS: ERYTHROMYCIN IV SCH ×2 (09:32→17:05)
--- NOTE | 2016-07-08 09:32 | Cardiology Progress Note ---
Amor Ramos Vanessa, RN, am scribing for, and in the presence of, Thierno Nagy MD 09:32. Assessment and Plan - Time spent with patient Time spent with patient: Greater than 30 minutes (1) Paroxysmal atrial fibrillation Status: Chronic Assessment and plan: Currently he is in sinus rhythm with atrial pacing. Pulse rate well controlled and in the 60s. Since discontinuation of sotalol, there has been no recurrence of VT,arrhythmia. Continue potassium supplement and vitamin C. He is not anticoagulated due to previous significant anemia requiring blood transfusion. Echocardiogram this admission LV ejection fraction 60%, grade 1/4 diastolic dysfunction, moderate TR with PA pressure 40-45 mmHg. Current Visit: Yes (2) Respiratory failure Status: Acute Assessment and plan: Defer primary management to pulmonary. Current Visit: Yes (3) Aspiration pneumonitis Status: Resolved Current Visit: Yes (4) Hypertension Status: Chronic Assessment and plan: Stable and well controlled at this time. Continue current regimen. Current Visit: No (5) Anemia Status: Chronic Assessment and plan: H&H remained stable. Currently, he is not anticoagulated for stroke prevention due to severe anemia and has been transfused with a total of 5 units packed red blood cells this admission. Current Visit: Yes (6) Alcohol abuse Status: Chronic Current Visit: Yes (7) Alcoholic cirrhosis Status: Chronic Current Visit: Yes (8) Obesity Status: Chronic Current Visit: Yes (9) Obstructive sleep apnea Problem details: refusing his mask Status: Chronic Current Visit: Yes Cardiology - PN: Subj Interval history: PRIMARY PETROPHYSICIST: DR. OLAYINKA CONLEY PCP: DR. SAMMY BOONE SUMMARY: Mr. Tracy is a 60-year-old white past medical history of paroxysmal atrial fibrillation, diabetes, hypertension, tachybradycardia syndrome now status post dual-chamber pacemaker implant, CHRIS, hyperlipidemia, and EtOH abuse. He was admitted to the ICU on 06/15/16 with pancreatitis, liver failure, and hepatorenal syndrome. During admission, he has been intubated due to aspiration pneumonitis with acute respiratory failure. He has been able to be extubated and fairly stable with use of BiPAP machine. He has developed a component of encephalopathy. On 07/01/16, he was noted to have recurrence of atrial fibrillation with RVR, beta-shantelle was increased, and pulse rate has done overall well since that time. Overnight on 07/05, patient experienced spontaneous, self limiting ventricular fibrillation and torsades. Sotalol was discontinued, and there has been no recurrent ectopy since that time. I think the arrhythmia was a proarrhythmic effect of sotalol. He is being evaluated for placement at [facility]. Cardiology was consulted to manage atrial fibrillation. Patient remains intubated with light sedation in use. No acute changes or new findings in patient's hemodynamic status. Vitals stable, and there has been no recurrence of ventricular ectopy or other arrhythmia since discontinuation of sotalol on 07/06. When sedation is held, he neither wakes up nor follows commands. He has been evaluated by neurology. Head CT this AM with generalized atropy and chronic microvascular disease but no acute process. He will have EEG later this morning. Labs reviewed. WBC 11,200. H/H 9.8 & 31.3. Potassium 3.8. Magnesium 2.3. Creatinine 2.7 (slightly decrease from 3.2) Current Medications Acetaminophen (Tylenol Tab) 650 mg PO Q6H PRN PRN Reason: Fever > 100.4 or Headache Albuterol/Ipratropium (Duoneb) 3 ml RESP TX RT Q6H [facility] Last Admin: 07/08/16 07:22 Dose: 3 ml Ascorbic Acid (Vitamin C Tab) 1,000 mg PO BID [facility] Last Admin: 07/08/16 08:09 Dose: 1,000 mg Dextrose/Water (D50) 25 gm IV PRN PRN PRN Reason: Hypoglycemia with IV access Diltiazem HCl (Cardizem Tab) 30 mg PO Q6HR [facility] Last Admin: 07/08/16 05:47 Dose: 30 mg Enoxaparin Sodium (Lovenox) 40 mg SUBCUT Q24H [facility] Last Admin: 07/07/16 13:30 Dose: 40 mg Famotidine (Pepcid Inj) 20 mg IV Q24H [facility] Last Admin: 07/07/16 23:41 Dose: 20 mg Furosemide (Lasix Inj) 40 mg IV DAILY [facility] Last Admin: 07/08/16 08:06 Dose: 40 mg Glucagon () 1 mg IM PRN PRN PRN Reason: Hypoglycemia w/o IV access Haloperidol Lactate (Haldol Inj) 5 mg IM Q6HR PRN PRN Reason: Agitation Heparin Sodium (Porcine) () 50 units IV PRN PRN PRN Reason: Flush Last Admin: 07/01/16 15:36 Dose: 50 units Phenylephrine/Sodium Chloride (Elder Synephrine Drip) 40 mg in 250 mls @ 15 mls/ hr IV TITRATE PRN; Protocol; 40 MCG/MIN PRN Reason: Hypotension Last Titration: 06/29/16 06:40 Dose: 0 mcg/min, 0 mls/hr Propofol (Diprivan) 1,000 mg in 100 mls @ 3.293 mls/hr IV TITRATE PATRICK; 5 MCG/KG /MIN PRN Reason: Protocol Last Admin: 07/08/16 08:21 Dose: 15.18 mcg/kg/min, 9.998 mls/hr Magnesium Sulfate 2 gm/ Premix 50 mls @ 25 mls/hr IV .PER PROTOCOL PRN; Protocol PRN Reason: Per Protocol Last Infusion: 06/30/16 08:09 Dose: Infused Magnesium Sulfate 4 gm/ Premix 100 mls @ 25 mls/hr IV .PER PROTOCOL PRN; Protocol PRN Reason: Per Protocol Last Infusion: 06/26/16 13:00 Dose: Infused Potassium Chloride 10 meq/ (Premix) 100 mls @ 100 mls/hr IV .PER PROTOCOL PRN; Protocol PRN Reason: Per Protocol Last Infusion: 07/07/16 10:25 Dose: Infused Potassium Chloride 20 meq/ (Premix) 100 mls @ 50 mls/hr IV .PER PROTOCOL PRN; Protocol PRN Reason: Per Protocol Last Admin: 07/08/16 07:33 Dose: 50 mls/hr Diltiazem HCl 125 mg/ Sodium (Chloride) 125 mls @ 5 mls/hr IV TITRATE PATRICK; 5 MG /HR PRN Reason: Protocol Last Admin: 07/03/16 19:05 Dose: Not Given Phenylephrine/Sodium Chloride (Elder Synephrine Drip) 40 mg in 250 mls @ 15 mls/ hr IV TITRATE PATRICK; 40 MCG/MIN PRN Reason: Protocol Last Admin: 07/07/16 16:35 Dose: Not Given Albumin Human 25 gm/ Premix 100 mls @ 100 mls/hr IV Q8H APTRICK Last Infusion: 07/08/16 06:49 Dose: Infused Erythromycin Lactobionate 200 (mg/ Sodium Chloride) 100 mls @ 100 mls/hr IV Q8H PATRICK Insulin Human Regular (Humulin R) 0 unit SUBCUT Q6HR [facility] PRN Reason: Protocol Last Admin: 07/08/16 05:54 Dose: Not Given Ketoconazole (Nizoral 2% Shampoo) 1 applic TOP TuFr [facility] Last Admin: 07/06/16 21:30 Dose: 1 applic Lactulose (Chronulac) 10 gm PO BID [facility] Last Admin: 07/08/16 08:09 Dose: 10 gm Levothyroxine Sodium (Synthroid Tab) 75 mcg PO DAILY@0700 [facility] Last Admin: 07/08/16 07:32 Dose: 75 mcg Megestrol Acetate (Megace Liquid) 400 mg PO BID [facility] Last Admin: 07/08/16 08:09 Dose: 400 mg Metoclopramide HCl (Reglan Inj) 10 mg IV Q6HR [facility] Last Admin: 07/08/16 06:10 Dose: 10 mg Metoprolol Tartrate (Lopressor Inj) 5 mg IV Q4H PRN PRN Reason: heart rate > 100 Last Admin: 06/25/16 17:30 Dose: 5 mg Midodrine (Proamatine) 10 mg PO TID [facility] Last Admin: 07/08/16 08:09 Dose: 10 mg Nystatin (Mycostatin Cream) 1 applic TOP BID [facility] Last Admin: 07/08/16 08:10 Dose: 1 applic Nystatin/Zinc Oxide (Skin Protectant Mixture) 1 applic TOP BID [facility] Last Admin: 07/08/16 08:09 Dose: 1 applic Ondansetron HCl (Zofran Inj) 4 mg IV Q6H PRN PRN Reason: Nausea/Vomiting Last Admin: 06/22/16 23:12 Dose: 4 mg Oxymetazoline HCl (Afrin Nasal [place]) 2 spray BOTH NARES BID PRN PRN Reason: see label comments Last Admin: 07/03/16 16:30 Dose: 2 spray Pantoprazole Sodium (Protonix Inj) 40 mg IV DAILY [facility] Last Admin: 07/08/16 08:01 Dose: 40 mg Potassium Chloride (K Dur) 20 meq PO DAILY [facility] Last Admin: 07/08/16 08:09 Dose: 20 meq Thiamine HCl (Vitamin B1 Inj) 100 mg IV DAILY [facility] Last Admin: 07/08/16 08:03 Dose: 100 mg Exam (Progress Note) - Constitutional Vitals: Period Temp Pulse Resp BP Sys/Mcbride Pulse Ox Last 24 Hr 97.3 F-98 F 60-87 10-18 90-163/54-107 97-100 Exam: General appearance: Obese, no acute distress, intubated with light sedation. - Head Head exam: Present: normal inspection, normocephalic, atraumatic. Absent: hematoma, laceration - Eye Eye exam: Present: Some mild periorbital swelling. Absent: conjunctival injection, scleral icterus, laceration to eyelids Pupils: Present: KARLEE. Absent: constricted, dilated, fixed, irregular, unequal - ENT ENT exam: Present: ET tube intact - Neck Neck exam: Present: midline trachea. Absent: lymphadenopathy, meningismus, tenderness, thyromegaly - Respiratory Respiratory exam: Present: rales throughout (some improvement), wheezing has improved. Absent: accessory muscle use, chest wall tenderness, rhonchi - Cardiovascular Cardiovascular exam: Present: regular rate and rhythm. Absent: carotid bruit, gallop, JVD, rubs, murmur, tachycardia, bradycardia - GI/Abdominal GI/Abdominal exam: Present: normal bowel sounds, obese. Absent: distended, firm , guarding, hernia, mass, tenderness, rebound, soft - Extremities Exam Extremities exam: Present: No clubbing, cyanosis, and no edema - Back Exam Back exam: Unable to assess as he is supine with mechanical ventilation - Neurological Exam Neurological exam: Unable to assess as he is currently intubated and sedated; he does not wake up or follow commands at this time. - Psychiatric Psychiatric exam: Unable to assess as he is sedated and intubated. - Skin Skin exam: Present: normal color, warm, dry, intact. Absent: cyanosis, diaphoretic, rash, urticaria Result/EKG - Labs CBC & BMP: 07/08/16 05:42 07/08/16 05:42 Lab Results: I have reviewed the past 24 hour labs Labs: Laboratory Results - last 24 hr 07/07/16 07/07/16 07/07/16 12:00 17:18 23:26 WBC RBC Hgb Hct MCV MCH MCHC RDW Plt Count MPV Neut % (Auto) Lymph % (Auto) [place] % (Auto) Eos % (Auto) Baso % (Auto) Neut # (Auto) Lymph # (Auto) [place] # (Auto) Eos # (Auto) Baso # (Auto) Total Counted Immature Gran % Nucleated RBC % Immature Gran # Segmented Neutrophils Band Neutrophils Lymphocytes Monocytes Eosinophils Myelocytes Nucleated RBCs # Platelet Estimate Hypochromasia ABG pH ABG pCO2 ABG pO2 ABG HCO3 ABG Total CO2 ABG O2 Saturation ABG Base Excess FiO2 Sodium Potassium Chloride Carbon Dioxide Anion Gap BUN Creatinine GFR Calculation BUN/Creatinine Ratio Glucose POC Glucose 139 H 130 H 138 H Calculated Osmolality Calcium Magnesium 07/08/16 07/08/16 07/08/16 02:52 05:42 05:42 WBC 11.2 RBC 3.18 L Hgb 9.8 L Hct 31.3 L MCV 98.4 MCH 31 MCHC 31.3 L RDW 17.6 H Plt Count 230 MPV 12.2 H Neut % (Auto) 60.4 Lymph % (Auto) 15.7 L [place] % (Auto) 16.8 H Eos % (Auto) 5.1 Baso % (Auto) 0.5 Neut # (Auto) 6.8 Lymph # (Auto) 1.8 [place] # (Auto) 1.9 H Eos # (Auto) 0.6 Baso # (Auto) 0.1 Total Counted 100 Immature Gran % 1.5 Nucleated RBC % 0.0 Immature Gran # 0.17 Segmented Neutrophils 68 Band Neutrophils 8 Lymphocytes 12 L Monocytes 7 Eosinophils 3 Myelocytes 2 Nucleated RBCs # 0.00 Platelet Estimate Adequate Hypochromasia 1+ ABG pH 7.493 H ABG pCO2 34.6 L ABG pO2 69.8 L ABG HCO3 26.0 ABG Total CO2 27.0 ABG O2 Saturation 93.3 L ABG Base Excess 2.8 H FiO2 50.00 Sodium 139 Potassium 3.8 Chloride 102 Carbon Dioxide 24 Anion Gap 16.8 H BUN 86 H Creatinine 2.70 H GFR Calculation 31 BUN/Creatinine Ratio 31.00 H Glucose 113 H POC Glucose Calculated Osmolality 303.5 Calcium 10.7 H Magnesium 2.3 07/08/16 05:42 WBC RBC Hgb Hct MCV MCH MCHC RDW Plt Count MPV Neut % (Auto) Lymph % (Auto) [place] % (Auto) Eos % (Auto) Baso % (Auto) Neut # (Auto) Lymph # (Auto) [place] # (Auto) Eos # (Auto) Baso # (Auto) Total Counted Immature Gran % Nucleated RBC % Immature Gran # Segmented Neutrophils Band Neutrophils Lymphocytes Monocytes Eosinophils Myelocytes Nucleated RBCs # Platelet Estimate Hypochromasia ABG pH ABG pCO2 ABG pO2 ABG HCO3 ABG Total CO2 ABG O2 Saturation ABG Base Excess FiO2 Sodium Potassium Chloride Carbon Dioxide Anion Gap BUN Creatinine GFR Calculation BUN/Creatinine Ratio Glucose POC Glucose 120 H Calculated Osmolality Calcium Magnesium - Diagnostic Findings Procedure: Chest x-ray: image reviewed by me, report reviewed by me (07/08/16: improved aeration left lower lung field; increased opacifications/atelectasis at right lower lung zone) - EKG EKG results: interpreted by me, no acute changes (atrially pacing; no ectopy) Quality Measures - VTE Contraindication to Pharmacological VTE Prophylaxis: Active Bleeding ILilo Michael, MD, personally performed the services described in this documentation, ascribed by Alice Chinchilla RN in my presence, and it is both accurate and complete 932 .
--- NOTE | 2016-07-08 10:05 | Internal Med Progress Note ---
Assessment and Plan (1) Respiratory failure Status: Acute Assessment and plan: 60-year-old male admitted to acute care * Respiratory failure. Patient is on ventilator. He was extubated earlier but had to be reintubated. Dr. Garcia is following him * Pancreatitis. Secondary to chronic alcohol use * Encephalopathy. Probably secondary to chronic liver disease * Atrial flutter. Patient is in sinus rhythm * Acute renal failure. His creatinine is slightly better * Will follow. No family available Current Visit: Yes (2) Obstructive sleep apnea Problem details: refusing his mask Status: Chronic Current Visit: Yes (3) Acute pancreatitis Status: Resolved Current Visit: Yes Qualifiers: Pancreatitis type: alcohol induced (4) Aspiration pneumonitis Status: Resolved Current Visit: Yes (5) CHF (congestive heart failure) Status: Acute Current Visit: No Qualifiers: Congestive heart failure type: systolic Congestive heart failure chronicity : acute on chronic Qualified Code(s): I50.23 - Acute on chronic systolic ( congestive) heart failure (6) Atrial flutter Status: Resolved Current Visit: No Internal Medicine - PN: Subj Interval history: Patient is a 60-year-old male with history of paroxysmal A. fib, diabetes, hypertension, tachybradycardia syndrome status post dual chamber pacemaker implant, history of sleep apnea, hyperlipidemia and alcohol abuse. He was admitted with acute pancreatitis, liver failure and hepatorenal syndrome. Patient had to be intubated after admission due to aspiration pneumonitis with respiratory failure. He was extubated but developed further problems with A. fib and rapid ventricular rate. Patient also had ventricular fibrillation and torsade. He was reintubated. Unable to provide any history Exam (Progress Note) - Constitutional Vitals: Period Temp Pulse Resp BP Sys/Mcbride Pulse Ox Last 24 Hr 97.3 F-98 F 60-87 10-18 90-163/56-107 97-100 Exam: Examination: GENERAL: NAD. HEENT patient intubated NECK: Neck is supple. No JVD. No carotid bruit. No thyromegaly. CVS: Regular rate and rhythm. S1 and S2 are normal. RESPIRATORY: Lungs are clear. Few rales at bases ABDOMEN: Soft and nontender. Bowel sounds are present. No hepatosplenomegaly. EXT: No edema. Peripheral pulses are present. ORTHOPTIST: Patient is sedated on ventilator SKIN: Warm and dry. MSK: No obvious deformity. Results - Labs CBC & BMP: 05/04/17 05:42 07/08/16 05:42 Lab Results: I have reviewed the past 24 hour labs Quality Measures - VTE Contraindication to Pharmacological VTE Prophylaxis: Active Bleeding
[2016-07-08] MEDS: ENOXAPARIN 40 MG/0.4 ML SYRINGE SUBCUT SCH (14:46)
--- NOTE | 2016-07-08 15:55 | General Surgery Progress Note ---
Assessment and Plan (1) Failure to thrive Status: Chronic Assessment and plan: This patient is very sick and has a lot of medical issues going on. I would not recommend surgical intervention at this time because of his underlying medical issues because of what was mentioned in the note yesterday that typically a PEG tube is a more preferable feeding option and this can be changed out for a gastrojejunostomy tube at a later time if needed. Another option would be to see if interventional radiology would want to try to place a jejunostomy tube but I think we should try to figure out the underlying reason for his high residuals and treat that first and then placed a PEG tube if necessary. I will repeat a KUB to see if there is any pattern as he did have some bowel gas pattern suggestive of ileus or bowel obstruction he first came in. He has been passing gas and having bowel movements per the nurses. We will get the x-ray and go from there. Current Visit: Yes Qualifiers: Failure to thrive age range: in adult Qualified Code(s): R62.7 - Adult failure to thrive Subjective Patient reports: Present: afebrile Exam - Constitutional Vitals: Period Temp Pulse Resp BP Sys/Mcbride Pulse Ox Last 24 Hr 97.3 F-98 F 60-87 10-20 90-163/56-107 97-100 General appearance: over weight - Head Head exam: Present: normal inspection - ENT ENT exam: Present: normal exam Mouth exam: Present: normal external inspection - Neck Neck exam: Present: normal inspection, trachea midline - Cardiovascular Cardiovascular exam: Present: RRR. Absent: tachycardia - GI/Abdominal GI/Abdominal exam: Present: soft. Absent: normal bowel sounds, tenderness, rebound - Extremities Exam Extremities exam: Present: normal inspection, normal capillary refill - Back Exam Back exam: Present: normal inspection - Skin Skin exam: Present: normal color, warm Results - Labs CBC & BMP: 07/08/16 05:42 07/08/16 05:42 Quality Measures - VTE Contraindication to Pharmacological VTE Prophylaxis: Active Bleeding
[2016-07-08] MEDS: PHENYLEPHRINE DRIP 40 MG/250 ML PREMIX IV SCH (16:13)
[2016-07-09] MEDS: INSULIN REGULAR 100 UNIT/ML SUBCUT SCH ×5 (00:01→23:39)
[2016-07-09] MEDS: METOCLOPRAMIDE 10 MG/2 ML VIAL IV SCH ×5 (00:02→23:47)
[2016-07-09] MEDS: DILTIAZEM 30 MG TABLET PO SCH ×5 (00:03→23:47)
[2016-07-09] MEDS: FAMOTIDINE 20 MG/2 ML VIAL IV SCH ×2 (00:08→23:46)
[2016-07-09] MEDS: SODIUM CHLORIDE 0.9% IV SCH ×3 (00:11→17:00)
[2016-07-09] MEDS: ERYTHROMYCIN IV SCH ×3 (00:11→17:00)
[2016-07-09] MEDS: ALBUTEROL/IPRATROPIUM 3 ML NEB RESP TX SCH ×4 (01:44→19:31)
[2016-07-09 03:11] LABS: Allen Test Positive; Pt O2 Delivery Device Ventilator
[2016-07-09 03:16] LABS: ABG Base Excess 0.8 MMOL/L (-2.5-2.5); ABG HCO3 25.1 MMOL/L (20-26); ABG Oxygen Saturation 99.6 % (95-100); ABG PCO2 33.6 MM HG (35-48); ABG PH 7.464 (7.35-7.45)
[2016-07-09] MEDS: ALBUMIN 25% 25 GM in PREMIX 1 EACH IV SCH ×3 (05:41→21:10)
[2016-07-09 06:10] LABS: Basophils # 0.1 10*3/uL (0.0-0.2); Basophils % 0.5 % (0.0-0.8); Eosinophils # 0.6 10*3/uL (0.0-0.87); Eosinophils % 5.4 % (0.00-10.9); Hematocrit 29.6 VOL% (42.0-52.0); Hemoglobin 9.5 GM/DL (14.0-18.0); Immature Granulocytes % 2.8 %; Immature Granulocytes Absolute 0.29 #; Lymphocytes # 1.7 10*3/uL (1.4-4.0); Lymphocytes % 16.3 % (21.2-54.2); Mean Corpuscular HGB Conc 32.1 GM/DL (32-36); Mean Corpuscular Hemoglobin 31 PG (27-34); Mean Platelet Volume 12.1 FL (9.6-12.0); Monocytes # 1.9 10*3/uL (0.11-0.8); Monocytes % 18.1 % (1.7-12.7); Neutrophils # 5.9 10*3/uL (1.4-7.4); Neutrophils % 56.9 % (38.7-73.9); Platelet Count 269 T/CUMM (130-400); Red Blood Count 3.05 MC/CUMM (3.8-5.5); Red Cell Distribution Width 17.7 % (9.3-17.3); White Blood Count 10.3 T/CUMM (4-12)
[2016-07-09] MEDS: LEVOTHYROXINE 75 MCG TABLET PO SCH (06:38)
[2016-07-09 06:39] LABS: Calcium 10.3 MG/DL (8.5-10.1); Magnesium 2.4 MG/DL (1.8-2.4); Osmolality,Calculated 311.3 MOS/KG (273-304); Potassium 4.4 MMOL/L (3.5-5.1)
[2016-07-09 06:48] LABS: Eosinophils 4 % (0-10); Hypochromasia 1+; Lymphocytes 22 % (20-55); Segmented Neutrophils 59 % (50-85); Total Cells Counted 100
[2016-07-09 06:50] LABS: Microcytosis 1+; Platelet Estimate Normal; Spherocytes Slight
--- NOTE | 2016-07-09 07:46 | Pulmonology Progress Note ---
Pulmonary - PN: Subj Interval history: Patient is a 60-year-old white man that is in very poor condition with obesity and chronic liver disease and heart disease. He was having more respiratory distress yesterday and had to be intubated. He was on the ventilator for several days but yesterday he was extubated. He has been breathing fairly well but he does require some suctioning. Over the weekend he had some arrhythmias with atrial fibrillation but is back in sinus rhythm now. Yesterday he developed more respiratory distress and dropped his O2 saturations. He has continued to have trouble clearing his secretions. He ultimately had to be reintubated yesterday. He developed complete atelectasis of his right lung. We did do a therapeutic bronchoscopy and clear secretions. His chest x-ray has improved nicely. The patient had a fairly stable night on the ventilator. He did do some CPAP yesterday his vital signs are stable. His chest x-ray overall looks better and his PO2 is 142. He still has quite lethargic although he will respond. Exam (Progress Note) - Constitutional Vitals: Period Temp Pulse Resp BP Sys/Mcbride Pulse Ox Last 24 Hr 97 F-97.8 F 60-82 10-25 79-140/55-86 98-100 Exam: General appearance: no distress (He is comfortable on the ventilator. He does grimace at times.) - Head Head exam: Present: normal inspection, normocephalic - Eye Eye exam: Present: EOMI. Absent: scleral icterus Pupils: Present: KARLEE - ENT ENT exam: Present: other (Patient has a very narrow hypopharynx) he does have an NG tube in place. ET tube is in good position now. - Neck Neck exam: Present: other (Patient does have a large neck). Absent: lymphadenopathy, thyromegaly - Respiratory Respiratory exam: Present: He has good breath sounds bilaterally is moving air well without any definite wheezing. He still has some minimal rhonchi. - Cardiovascular Cardiovascular exam: Present: His heart rate is fairly regular rhythm now. - GI/Abdominal GI/Abdominal exam: Present: Hypoactive bowel sounds, soft, other (Abdomen is large). Absent: organomegaly, tenderness - Extremities Exam Extremities exam: Absent: calf tenderness, edema, he will move his extremities but is very weak. - Neurological Exam Neurological exam: Present: altered (Patient will respond somewhat has some respiratory effort but is still not very alert.) - Psychiatric Psychiatric exam: Present: He is not really responding that well now. - Skin Skin exam: Present: warm, dry Results - Labs CBC & BMP: 07/09/16 05:36 07/09/16 05:36 Labs: PO2 is 142 with a PCO2 of 33 and a pH of 7.46 - Diagnostic Findings Procedure: Chest x-ray: image reviewed by me, report reviewed by me (Chest x- ray shows minimal infiltrate in the left base.) Assessment and Plan (1) NICM (nonischemic cardiomyopathy) Problem details: improved EF per updated ECHO Status: Chronic Assessment and plan: The patient does have cardiomegaly and has had a component of heart failure that is better. His ventricular ectopy is much improved. He appears to be hemodynamically stable at present. Current Visit: Yes (2) Paroxysmal atrial fibrillation Status: Chronic Assessment and plan: The patient has a regular rhythm now and his heart rate is better. His ectopy is much improved. Current Visit: Yes (3) Obstructive sleep apnea Problem details: refusing his mask Status: Chronic Assessment and plan: Patient is back on the ventilator now. Current Visit: Yes (4) Alcoholic cirrhosis Status: Chronic Assessment and plan: Patient does have improvement in his liver test and his bilirubin is down to 2.0. He still has some encephalopathy. Current Visit: Yes (5) Aspiration pneumonitis Status: Resolved Assessment and plan: Patient has marked improvement in his chest x-ray and his pneumonia is much better. Current Visit: Yes (6) Acute renal failure Status: Resolved Assessment and plan: His renal function is slightly better but he does have some chronic renal insufficiency with a creatinine of 2.5. Current Visit: Yes
--- NOTE | 2016-07-09 08:30 | Internal Med Progress Note ---
Assessment and Plan (1) Respiratory failure Status: Acute Assessment and plan: 60-year-old male admitted to acute care * Respiratory failure. Patient is on ventilator. Did okay with CPAP trials yesterday. Chest x-ray looks better * Pancreatitis. Secondary to chronic alcohol use * Encephalopathy. Still quite sedated * Atrial flutter. Patient is in sinus rhythm * Acute renal failure. His creatinine is improving * Continue current management Current Visit: Yes (2) Obstructive sleep apnea Problem details: refusing his mask Status: Chronic Current Visit: Yes (3) Acute pancreatitis Status: Resolved Current Visit: Yes Qualifiers: Pancreatitis type: alcohol induced (4) Aspiration pneumonitis Status: Resolved Current Visit: Yes (5) CHF (congestive heart failure) Status: Acute Current Visit: No Qualifiers: Congestive heart failure type: systolic Congestive heart failure chronicity : acute on chronic Qualified Code(s): I50.23 - Acute on chronic systolic ( congestive) heart failure (6) Atrial flutter Status: Resolved Current Visit: No Internal Medicine - PN: Subj Interval history: Patient is a 60-year-old male with history of paroxysmal A. fib, diabetes, hypertension, tachybradycardia syndrome status post dual chamber pacemaker implant, history of sleep apnea, hyperlipidemia and alcohol abuse. He was admitted with acute pancreatitis, liver failure and hepatorenal syndrome. Patient had to be intubated after admission due to aspiration pneumonitis with respiratory failure. He was extubated but developed further problems with A. fib and rapid ventricular rate. Patient also had ventricular fibrillation and torsade. He was reintubated. Patient did well with CPAP trials for 4 hours yesterday. Exam (Progress Note) - Constitutional Vitals: Period Temp Pulse Resp BP Sys/Mcbride Pulse Ox Last 24 Hr 97 F-97.8 F 60-82 10-25 79-140/55-86 98-100 Exam: Examination: GENERAL: NAD. HEENT patient intubated NECK: Neck is supple. CVS: Regular rate and rhythm. S1 and S2 are normal. RESPIRATORY: Lungs are clear. Few rales at bases ABDOMEN: Soft and nontender. EXT: No edema. Peripheral pulses are present. DISABILITY PROGRAM NAVIGATOR: Patient is sedated on ventilator SKIN: Warm and dry. MSK: No obvious deformity. Results - Labs CBC & BMP: 07/09/16 05:36 07/09/16 05:36 Lab Results: I have reviewed the past 24 hour labs Quality Measures - VTE Contraindication to Pharmacological VTE Prophylaxis: Active Bleeding
[2016-07-09] MEDS: PROPOFOL 1,000 MG/100 ML BOTTLE IV SCH (09:00)
--- NOTE | 2016-07-09 09:21 | XRay Report ---
XR abdomen 1V Indication: Abdominal distention, residuals Comparison: None available Findings: No free fluid or free air seen. The bowel gas pattern appears within normal limits. NG tube overlies the stomach. No definite abnormal calcifications are present. No other abnormality is identified. Impression: No evidence of acute findings demonstrated. PROCEDURE INTERPRETED AT [facility] DEPARTMENT OF RADIOLOGY Final Report Signed by: Dr. Milind Maharaj
[2016-07-09] MEDS: PANTOPRAZOLE 40 MG VIAL IV SCH (09:25)
--- NOTE | 2016-07-09 09:26 | XRay Report ---
XR chest 1V portable Indication: Ventilator management Comparison: and July 2016 Findings: The heart and mediastinum are stable in size and configuration. The lines and tubes are unchanged in position. The pulmonary vascularity is normal in caliber.. Slight increased left lung density near the hilum. No other lung infiltrates, effusions, pneumothorax or other abnormality is demonstrated. Impression: Slight increased density near left lung near hilum, could indicate pneumonia. PROCEDURE INTERPRETED AT [facility] DEPARTMENT OF RADIOLOGY Final Report Signed by: Dr. Milind Maharaj
[2016-07-09] MEDS: THIAMINE 200 MG/2 ML VIAL IV SCH (09:28)
[2016-07-09] MEDS: FUROSEMIDE 40 MG/4 ML VIAL IV SCH (09:30)
[2016-07-09] MEDS: MIDODRINE 5 MG TABLET PO SCH ×3 (09:30→21:05)
[2016-07-09] MEDS: DESITIN 4OZ/NYSTATIN 15 GRAM MIXTURE PASTE TOP SCH ×2 (09:30→21:05)
[2016-07-09] MEDS: POTASSIUM CHLORIDE 20 MEQ/15 ML UDCUP NG SCH (09:30)
[2016-07-09] MEDS: LACTULOSE 20 GM/30 ML UDCUP PO SCH ×2 (09:30→21:05)
[2016-07-09] MEDS: NYSTATIN CREAM 15 GM TUBE TOP SCH ×2 (09:30→21:05)
[2016-07-09] MEDS: MEGESTROL 400 MG/10 ML UDCUP PO SCH ×2 (09:30→21:05)
[2016-07-09] MEDS: ASCORBIC ACID 500 MG TABLET PO SCH ×2 (09:30→21:05)
--- NOTE | 2016-07-09 09:52 | Cardiology Progress Note ---
I, Alice Chinchilla RN, am scribing for, and in the presence of, Thierno Nagy MD 09:52. Assessment and Plan - Time spent with patient Time spent with patient: Greater than 30 minutes (1) Paroxysmal atrial fibrillation Status: Chronic Assessment and plan: Currently he is in sinus rhythm with atrial pacing. Pulse rate well controlled and in the 60s. I would avoid sotalol use as this produced a proarrhythmic effect with VT/torsades. Since stopping this medication there has been no further arrhythmia. I would continue potassium supplement and vitamin C. He is not anticoagulated due to previous significant anemia requiring blood transfusion. Echocardiogram this admission LV ejection fraction 60%, grade 1/4 diastolic dysfunction, moderate TR with PA pressure 40-45 mmHg. At this point, his cardiac status appears to be stable. I am going to drop off of his case. If I can be of any further assistance please call. Current Visit: Yes (2) Respiratory failure Status: Acute Assessment and plan: Defer primary management to pulmonary. Current Visit: Yes (3) Aspiration pneumonitis Status: Resolved Current Visit: Yes (4) Hypertension Status: Chronic Assessment and plan: Stable and well controlled at this time. Continue current regimen. Current Visit: No (5) Anemia Status: Chronic Assessment and plan: H&H remained stable. Currently, he is not anticoagulated for stroke prevention due to severe anemia and has been transfused with a total of 5 units packed red blood cells this admission. 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 OLAYINKA CONLEY PCP: DR. SAMMY BOONE SUMMARY: Mr. Tracy is a 60-year-old white past medical history of paroxysmal atrial fibrillation, diabetes, hypertension, tachybradycardia syndrome now status post dual-chamber pacemaker implant, CHRIS, hyperlipidemia, and EtOH abuse. He was admitted to the ICU on 06/15/16 with pancreatitis, liver failure, and hepatorenal syndrome. During admission, he has been intubated due to aspiration pneumonitis with acute respiratory failure. He has been able to be extubated and fairly stable with use of BiPAP machine. He has developed a component of encephalopathy. On 07/01/16, he was noted to have recurrence of atrial fibrillation with RVR, beta-shantelle was increased, and pulse rate has done overall well since that time. Overnight on 07/05, patient experienced spontaneous, self limiting ventricular fibrillation and torsades. Sotalol was discontinued, and there has been no recurrent ectopy since that time. I think the arrhythmia was a proarrhythmic effect of sotalol. He is being evaluated for placement at [facility]. Cardiology was consulted to manage atrial fibrillation. Patient remains intubated and sedated in ICU. He remains unresponsive, and EEG yesterday revealed generalizaed slowing without seizure activity. Patient is for KUB this morning to evaluate for source of high gastric residuals, and then will have appropriate feeding tube placed if required. Overnight, there have been no new findings or acute changes in patient's hemodynamic status. BP and rhythm have been stable without need for vasopressor, antiarrhythmic, or other. Atrial pacing without disturbance per cardiac monitoring. Labs reviewed and are overall unremarkable. Electrolytes are well optimized currently. From a cardiac standpoint, we have nothing to further to add at this time. We will sign off. Please reconsult if necessary. Thank you. Current Medications Acetaminophen (Tylenol Tab) 650 mg PO Q6H PRN PRN Reason: Fever > 100.4 or Headache Albuterol/Ipratropium (Duoneb) 3 ml RESP TX RT Q6H [facility] Last Admin: 07/09/16 07:36 Dose: 3 ml Ascorbic Acid (Vitamin C Tab) 1,000 mg PO BID [facility] Last Admin: 07/08/16 21:52 Dose: 1,000 mg Dextrose/Water (D50) 25 gm IV PRN PRN PRN Reason: Hypoglycemia with IV access Diltiazem HCl (Cardizem Tab) 30 mg PO Q6HR [facility] Last Admin: 07/09/16 05:31 Dose: 30 mg Enoxaparin Sodium (Lovenox) 40 mg SUBCUT Q24H [facility] Last Admin: 07/08/16 14:46 Dose: 40 mg Famotidine (Pepcid Inj) 20 mg IV Q24H [facility] Last Admin: 07/09/16 00:08 Dose: 20 mg Furosemide (Lasix Inj) 40 mg IV DAILY [facility] Last Admin: 07/08/16 08:06 Dose: 40 mg Glucagon () 1 mg IM PRN PRN PRN Reason: Hypoglycemia w/o IV access Haloperidol Lactate (Haldol Inj) 5 mg IM Q6HR PRN PRN Reason: Agitation Heparin Sodium (Porcine) () 50 units IV PRN PRN PRN Reason: Flush Last Admin: 07/01/16 15:36 Dose: 50 units Phenylephrine/Sodium Chloride (Elder Synephrine Drip) 40 mg in 250 mls @ 15 mls/ hr IV TITRATE PRN; Protocol; 40 MCG/MIN PRN Reason: Hypotension Last Titration: 06/29/16 06:40 Dose: 0 mcg/min, 0 mls/hr Propofol (Diprivan) 1,000 mg in 100 mls @ 3.293 mls/hr IV TITRATE PATRICK; 5 MCG/KG /MIN PRN Reason: Protocol Last Titration: 07/08/16 22:23 Dose: 7.59 mcg/kg/min, 5 mls/hr Magnesium Sulfate 2 gm/ Premix 50 mls @ 25 mls/hr IV .PER PROTOCOL PRN; Protocol PRN Reason: Per Protocol Last Infusion: 06/30/16 08:09 Dose: Infused Magnesium Sulfate 4 gm/ Premix 100 mls @ 25 mls/hr IV .PER PROTOCOL PRN; Protocol PRN Reason: Per Protocol Last Infusion: 06/26/16 13:00 Dose: Infused Potassium Chloride 10 meq/ (Premix) 100 mls @ 100 mls/hr IV .PER PROTOCOL PRN; Protocol PRN Reason: Per Protocol Last Infusion: 07/07/16 10:25 Dose: Infused Potassium Chloride 20 meq/ (Premix) 100 mls @ 50 mls/hr IV .PER PROTOCOL PRN; Protocol PRN Reason: Per Protocol Last Infusion: 07/08/16 09:40 Dose: Infused Diltiazem HCl 125 mg/ Sodium (Chloride) 125 mls @ 5 mls/hr IV TITRATE PATRICK; 5 MG /HR PRN Reason: Protocol Last Admin: 07/03/16 19:05 Dose: Not Given Phenylephrine/Sodium Chloride (Elder Synephrine Drip) 40 mg in 250 mls @ 15 mls/ hr IV TITRATE PATRICK; 40 MCG/MIN PRN Reason: Protocol Last Admin: 07/08/16 16:13 Dose: Not Given Albumin Human 25 gm/ Premix 100 mls @ 100 mls/hr IV Q8H [facility] Last Admin: 07/09/16 05:41 Dose: 100 mls/hr Erythromycin Lactobionate 200 (mg/ Sodium Chloride) 100 mls @ 100 mls/hr IV Q8H [facility] Last Infusion: 07/09/16 01:10 Dose: Infused Insulin Human Regular (Humulin R) 0 unit SUBCUT Q6HR [facility] PRN Reason: Protocol Last Admin: 07/09/16 06:38 Dose: Not Given Ketoconazole (Nizoral 2% Shampoo) 1 applic TOP TuFr [facility] Last Admin: 07/06/16 21:30 Dose: 1 applic Lactulose (Chronulac) 10 gm PO BID [facility] Last Admin: 07/08/16 21:53 Dose: 10 gm Levothyroxine Sodium (Synthroid Tab) 75 mcg PO DAILY@0700 [facility] Last Admin: 07/09/16 06:38 Dose: 75 mcg Megestrol Acetate (Megace Liquid) 400 mg PO BID [facility] Last Admin: 07/08/16 21:53 Dose: 400 mg Metoclopramide HCl (Reglan Inj) 10 mg IV Q6HR [facility] Last Admin: 07/09/16 05:37 Dose: 10 mg Metoprolol Tartrate (Lopressor Inj) 5 mg IV Q4H PRN PRN Reason: heart rate > 100 Last Admin: 06/25/16 17:30 Dose: 5 mg Midodrine (Proamatine) 10 mg PO TID [facility] Last Admin: 07/08/16 21:53 Dose: 10 mg Nystatin (Mycostatin Cream) 1 applic TOP BID [facility] Last Admin: 07/08/16 21:53 Dose: 1 applic Nystatin/Zinc Oxide (Skin Protectant Mixture) 1 applic TOP BID [facility] Last Admin: 07/08/16 21:53 Dose: 1 applic Ondansetron HCl (Zofran Inj) 4 mg IV Q6H PRN PRN Reason: Nausea/Vomiting Last Admin: 06/22/16 23:12 Dose: 4 mg Oxymetazoline HCl (Afrin Nasal Scheller) 2 spray BOTH NARES BID PRN PRN Reason: see label comments Last Admin: 07/03/16 16:30 Dose: 2 spray Pantoprazole Sodium (Protonix Inj) 40 mg IV DAILY [facility] Last Admin: 07/08/16 08:01 Dose: 40 mg Potassium Chloride () 20 meq NG DAILY PATRICK Thiamine HCl (Vitamin B1 Inj) 100 mg IV DAILY PATRICK Last Admin: 07/08/16 08:03 Dose: 100 mg Exam (Progress Note) - Constitutional Vitals: Period Temp Pulse Resp BP Sys/Mcbride Pulse Ox Last 24 Hr 97 F-97.8 F 60-82 10-25 79-140/55-86 98-100 Exam: Exam: General appearance: Obese, no acute distress, intubated, sedated - Head Head exam: Present: normal inspection, normocephalic, atraumatic. Absent: hematoma, laceration - Eye Eye exam: Present: Some mild periorbital swelling. Absent: conjunctival injection, scleral icterus, laceration to eyelids Pupils: Present: KARLEE. Absent: constricted, dilated, fixed, irregular, unequal - ENT ENT exam: Present: ET tube intact - Neck Neck exam: Present: midline trachea. Absent: lymphadenopathy, meningismus, tenderness, thyromegaly - Respiratory Respiratory exam: Present: Overall, lungs clear to auscultation anteriorly. Absent: accessory muscle use, chest wall tenderness, rhonchi, wheeze - Cardiovascular Cardiovascular exam: Present: regular rate and rhythm, pacing. Absent: carotid bruit, gallop, JVD, rubs, murmur, tachycardia, bradycardia - GI/Abdominal GI/Abdominal exam: Present: normal bowel sounds, obese. Absent: distended, firm , guarding, hernia, mass, tenderness, rebound, soft - Extremities Exam Extremities exam: Present: No clubbing, cyanosis, and no edema - Back Exam Back exam: Unable to assess as he is supine with mechanical ventilation - Neurological Exam Neurological exam: Unable to assess as he is currently intubated and sedated; he does not wake up or follow commands at this time. - Psychiatric Psychiatric exam: Unable to assess as he is sedated and intubated. - Skin Skin exam: Present: normal color, warm, dry, intact. Absent: cyanosis, diaphoretic, rash, urticaria Result/EKG - Labs CBC & BMP: 07/09/16 05:36 07/09/16 05:36 Lab Results: I have reviewed the past 24 hour labs Labs: Laboratory Results - last 24 hr 07/08/16 07/08/16 07/08/16 11:32 18:11 23:40 WBC RBC Hgb Hct MCV MCH MCHC RDW Plt Count MPV Neut % (Auto) Lymph % (Auto) Long % (Auto) Eos % (Auto) Baso % (Auto) Neut # (Auto) Lymph # (Auto) Long # (Auto) Eos # (Auto) Baso # (Auto) Total Counted Immature Gran % Nucleated RBC % Immature Gran # Segmented Neutrophils Lymphocytes Monocytes Eosinophils Nucleated RBCs # Platelet Estimate Hypochromasia Microcytosis Spherocytes ABG pH ABG pCO2 ABG pO2 ABG HCO3 ABG Total CO2 ABG O2 Saturation ABG Base Excess FiO2 Sodium Potassium Chloride Carbon Dioxide Anion Gap BUN Creatinine GFR Calculation BUN/Creatinine Ratio Glucose POC Glucose 127 H 94 138 H Calculated Osmolality Calcium Magnesium 07/09/16 07/09/16 07/09/16 02:50 05:36 05:36 WBC 10.3 RBC 3.05 L Hgb 9.5 L Hct 29.6 L MCV 97.0 MCH 31 MCHC 32.1 RDW 17.7 H Plt Count 269 MPV 12.1 H Neut % (Auto) 56.9 Lymph % (Auto) 16.3 L Long % (Auto) 18.1 H Eos % (Auto) 5.4 Baso % (Auto) 0.5 Neut # (Auto) 5.9 Lymph # (Auto) 1.7 Long # (Auto) 1.9 H Eos # (Auto) 0.6 Baso # (Auto) 0.1 Total Counted 100 Immature Gran % 2.8 Nucleated RBC % 0.0 Immature Gran # 0.29 Segmented Neutrophils 59 Lymphocytes 22 Monocytes 15 Eosinophils 4 Nucleated RBCs # 0.00 Platelet Estimate Normal Hypochromasia 1+ Microcytosis 1+ Spherocytes Slight ABG pH 7.464 H ABG pCO2 33.6 L ABG pO2 142.0 H ABG HCO3 25.1 ABG Total CO2 22.0 L ABG O2 Saturation 99.6 ABG Base Excess 0.8 FiO2 50.00 Sodium 141 Potassium 4.4 Chloride 102 Carbon Dioxide 25 Anion Gap 18.4 H BUN 95 H Creatinine 2.50 H GFR Calculation 34 BUN/Creatinine Ratio 38.00 H Glucose 128 H POC Glucose Calculated Osmolality 311.3 H Calcium 10.3 H Magnesium 2.4 07/09/16 05:36 WBC RBC Hgb Hct MCV MCH MCHC RDW Plt Count MPV Neut % (Auto) Lymph % (Auto) Long % (Auto) Eos % (Auto) Baso % (Auto) Neut # (Auto) Lymph # (Auto) Long # (Auto) Eos # (Auto) Baso # (Auto) Total Counted Immature Gran % Nucleated RBC % Immature Gran # Segmented Neutrophils Lymphocytes Monocytes Eosinophils Nucleated RBCs # Platelet Estimate Hypochromasia Microcytosis Spherocytes ABG pH ABG pCO2 ABG pO2 ABG HCO3 ABG Total CO2 ABG O2 Saturation ABG Base Excess FiO2 Sodium Potassium Chloride Carbon Dioxide Anion Gap BUN Creatinine GFR Calculation BUN/Creatinine Ratio Glucose POC Glucose 126 H Calculated Osmolality Calcium Magnesium - Diagnostic Findings Procedure: Chest x-ray: image reviewed by me - EKG EKG results: interpreted by me, no acute changes EKG shows: sinus rhythm (atrial pacing; no ectopy/dysrhythmia) Quality Measures - VTE Contraindication to Pharmacological VTE Prophylaxis: Active Bleeding Lilo Ramos Michael, MD, personally performed the services described in this documentation, ascribed by Alice Chinchilla RN in my presence, and it is both accurate and complete [id number] .
--- NOTE | 2016-07-09 10:07 | General Surgery Progress Note ---
Assessment and Plan (1) Failure to thrive Status: Chronic Assessment and plan: The patient is tolerating his tube feeds so I do not think that a jejunostomy tube will be indicated. However, he is also waking up and starting to follow commands and is passing CPAP trial so I think the best thing to do would be given the weekend with tube feeds and see if he is able to be extubated and swallow on his own. Regardless, if enteral access is still required I would prefer a consult to gastroenterology for percutaneous endoscopic gastrostomy tube placement. I will sign off at this time. Please call back with any further questions. Current Visit: Yes Qualifiers: Failure to thrive age range: in adult Qualified Code(s): R62.7 - Adult failure to thrive Subjective Patient reports: Present: no new complaints, afebrile Narrative: The patient is passing his CPAP trials currently. We placed him on erythromycin yesterday and he actually has no gastric residuals on his tube feeds and he is almost at goal now. His KUB today shows no evidence of an ileus. He had to blow outs per the nurses yesterday large bowel movements. Exam - Constitutional Vitals: Period Temp Pulse Resp BP Sys/Mcbride Pulse Ox Last 24 Hr 97 F-97.8 F 60-82 10-25 79-137/55-86 98-100 General appearance: no acute distress, over weight - Head Head exam: Present: normal inspection, normocephalic - Eye Eye exam: Present: EOMI Pupils: Present: KARLEE - ENT ENT exam: Present: normal exam Mouth exam: Present: normal external inspection - Neck Neck exam: Present: normal inspection, trachea midline - Respiratory Respiratory exam: Present: clear to auscultation bilaterally. Absent: accessory muscle use, chest wall tenderness - Cardiovascular Cardiovascular exam: Present: RRR. Absent: systolic murmur, tachycardia - GI/Abdominal GI/Abdominal exam: Present: soft. Absent: tenderness, rebound - Extremities Exam Extremities exam: Present: normal inspection, normal capillary refill - Back Exam Back exam: Present: normal inspection - Neurological Exam Neurological exam: Present: alert - Skin Skin exam: Present: normal color, warm Results - Labs CBC & BMP: 07/09/16 05:36 07/09/16 05:36 Quality Measures - VTE Contraindication to Pharmacological VTE Prophylaxis: Active Bleeding
--- NOTE | 2016-07-09 12:26 | Neurology Progress Note ---
Neurology - PN : Subjective Interval history: Patient seems to be doing about the same. Getting CPAP trials. Not waking up. Exam (Progress Note) - Constitutional Vitals: Period Temp Pulse Resp BP Sys/Mcbride Pulse Ox Last 24 Hr 97 F-97.8 F 60-82 10-25 79-137/49-86 98-100 Exam: GENERAL: Patient is in no acute distress. NECK: Neck is supple. There is no JVD. No carotid bruits present. No thyroid masses. CVS: First and second heart sounds are normal. There is no S3 present. Regular rate and rhythm. RESPIRATORY: Lungs are clear to auscultation without any rales or rhonchi. ABDOMEN: Soft and non-tender. Bowel sounds are present. There is no hepatosplenomegaly. EXT: There is no palpable edema. Peripheral pulses are present. Skin: No rashes Central Nervous system: General: Unresponsive Speech: None Comprehension: None Facial expressions: Normal Cranial Nerves: Pupils are sluggish but reactive. Doll's head eye movements are positive. No facial asymmetry is seen. Motor: Strength cannot be assessed. Sensory: Cannot be a Reflexes: 1+ and symmetrical Cerebellar function: Cannot be assessed Toes: Equivocal Gait: Cannot be assessed Results - Labs CBC & BMP: 07/09/16 05:36 07/09/16 05:36 Assessment and Plan (1) Encephalopathy Status: Acute Assessment and plan: This is likely multifactorial including hypoxic/anoxic/infectious etiology. Continue current supportive management at this time. EEG failed to show any acute pathology or seizures. Probably need LTAC Current Visit: Yes Quality Measures - VTE Contraindication to Pharmacological VTE Prophylaxis: Active Bleeding
[2016-07-09] MEDS: ENOXAPARIN 40 MG/0.4 ML SYRINGE SUBCUT SCH (14:00)
--- NOTE | 2016-07-09 16:47 | Electroencephalogram ---
HISTORY: A 50-year-old patient with a history of encephalopathy. INTRODUCTION: A digital EEG was performed using the standard 10/20 system of electrode placement wi th one channel of EKG monitoring. Photic stimulation was performed. DESCRIPTION OF RECORD: The background is very disorganized, consists of 5 to 6 hertz low amplitude bilaterally symmetrical rhythm. Photic stimulation elicits a driving response slower flash frequenc ies. Hyperventilation was not performed. There are no focal, sharp wave, spike or wave activities seen. Heart rate 60 beats per minute. IMPRESSION: ABNORMAL EEG DUE GENERALIZED SLOWING. CLINICAL CORRELATION: This record is supportive of moderate to severe encephalopathy, which could b e secondary to postictal state, posthypoxic state, metabolic disorder, diffuse DENITRATOR OPERATOR insult, or increa sed intracranial pressure. No epileptiform/seizure activity seen. Clinical correlation is suggested.
[2016-07-09] MEDS: KETOCONAZOLE 2% SHAMPOO 120 ML BOTTLE TOP SCH (23:49)
[2016-07-10] MEDS: ERYTHROMYCIN IV SCH ×3 (01:56→16:30)
[2016-07-10] MEDS: SODIUM CHLORIDE 0.9% IV SCH ×3 (01:56→16:30)
[2016-07-10] MEDS: PROPOFOL 1,000 MG/100 ML BOTTLE IV SCH ×3 (01:57→17:30)
[2016-07-10] MEDS: ALBUTEROL/IPRATROPIUM 3 ML NEB RESP TX SCH ×4 (02:06→19:31)
[2016-07-10 03:27] LABS: ABG Base Excess 0.5 MMOL/L (-2.5-2.5); ABG Oxygen Saturation 98.3 % (95-100); ABG PH 7.466 (7.35-7.45); ABG PO2 143.2 MM HG (80-95); Allen Test Positive; Pt O2 Delivery Device Ventilator
[2016-07-10 04:10] LABS: Basophils # 0.1 10*3/uL (0.0-0.2); Basophils % 0.4 % (0.0-0.8); Eosinophils # 0.5 10*3/uL (0.0-0.87); Eosinophils % 4.4 % (0.00-10.9); Hematocrit 29.7 VOL% (42.0-52.0); Hemoglobin 9.4 GM/DL (14.0-18.0); Immature Granulocytes % 4.1 %; Immature Granulocytes Absolute 0.46 #; Lymphocytes # 1.9 10*3/uL (1.4-4.0); Lymphocytes % 16.5 % (21.2-54.2); Mean Corpuscular HGB Conc 31.6 GM/DL (32-36); Mean Corpuscular Hemoglobin 32 PG (27-34); Mean Platelet Volume 12.3 FL (9.6-12.0); Monocytes # 2.1 10*3/uL (0.11-0.8); Monocytes % 18.8 % (1.7-12.7); Neutrophils # 6.2 10*3/uL (1.4-7.4); Neutrophils % 55.8 % (38.7-73.9); Platelet Count 235 T/CUMM (130-400); Red Blood Count 2.97 MC/CUMM (3.8-5.5); Red Cell Distribution Width 17.8 % (9.3-17.3); White Blood Count 11.2 T/CUMM (4-12)
[2016-07-10 04:40] LABS: Calcium 10.5 MG/DL (8.5-10.1); Osmolality,Calculated 315.3 MOS/KG (273-304); Phosphorous 4.5 MG/DL (2.5-4.9); Potassium 4.4 MMOL/L (3.5-5.1)
[2016-07-10 05:01] LABS: Band Neutrophils 1 % (0-10); Eosinophils 3 % (0-10); Lymphocytes 18 % (20-55); Myelocytes 1 %; Segmented Neutrophils 64 % (50-85); Total Cells Counted 100
[2016-07-10 05:05] LABS: Platelet Estimate Normal; Spherocytes 1+
[2016-07-10] MEDS: INSULIN REGULAR 100 UNIT/ML SUBCUT SCH ×3 (05:48→18:00)
--- NOTE | 2016-07-10 06:18 | Pulmonology Progress Note ---
Pulmonary - PN: Subj Interval history: Patient is a 60-year-old white man that is in very poor condition with obesity and chronic liver disease and heart disease. He was having more respiratory distress yesterday and had to be intubated. He was on the ventilator for several days but yesterday he was extubated. He has been breathing fairly well but he does require some suctioning. Over the weekend he had some arrhythmias with atrial fibrillation but is back in sinus rhythm now. Yesterday he developed more respiratory distress and dropped his O2 saturations. He has continued to have trouble clearing his secretions. He ultimately had to be reintubated yesterday. He developed complete atelectasis of his right lung. We did do a therapeutic bronchoscopy and clear secretions. His chest x-ray has improved nicely. The patient has been quite stable on the ventilator now. He has been doing CPAP for hours and doing well. His chest x-ray is better and his oxygenation has improved. He apparently does wake up fairly easily but is getting some sedation now. Overall he is stable. Will plan to extubate in the next day or 2. Exam (Progress Note) - Constitutional Vitals: Period Temp Pulse Resp BP Sys/Mcbride Pulse Ox Last 24 Hr 97.2 F-98.9 F 60-75 10-24 84-116/42-73 97-100 Exam: General appearance: no distress (He is comfortable on the ventilator. He does respond when his sedation has been decreased.) - Head Head exam: Present: normal inspection, normocephalic - Eye Eye exam: Present: EOMI. Absent: scleral icterus Pupils: Present: KARLEE - ENT ENT exam: Present: other (Patient has a very narrow hypopharynx) he does have an NG tube in place. ET tube is in good position now. - Neck Neck exam: Present: other (Patient does have a large neck). Absent: lymphadenopathy, thyromegaly - Respiratory Respiratory exam: Present: He has good breath sounds bilaterally and his lungs sound clearer now. - Cardiovascular Cardiovascular exam: Present: His heart rate is fairly regular rhythm now. - GI/Abdominal GI/Abdominal exam: Present: Hypoactive bowel sounds, soft, other (Abdomen is large). Absent: organomegaly, tenderness - Extremities Exam Extremities exam: Absent: calf tenderness, edema, he will move his extremities but is very weak. - Neurological Exam Neurological exam: Present: altered (Patient will respond and has been fairly cooperative on the ventilator.) - Psychiatric Psychiatric exam: Present: He is responding a little better now. - Skin Skin exam: Present: warm, dry Results - Labs CBC & BMP: 07/10/16 02:57 07/10/16 02:57 Labs: PO2 is 143 with a PCO2 of 34 and a pH of 7.46 - Diagnostic Findings Procedure: Chest x-ray: image reviewed by me, report reviewed by me (Chest x- ray is almost completely clear) Assessment and Plan (1) NICM (nonischemic cardiomyopathy) Problem details: improved EF per updated ECHO Status: Chronic Assessment and plan: The patient does have cardiomegaly and has had a component of heart failure that is better. His ventricular ectopy is much improved. He appears to be hemodynamically stable at present. Current Visit: Yes (2) Paroxysmal atrial fibrillation Status: Chronic Assessment and plan: The patient has a regular rhythm now and his heart rate is better. His ectopy is much improved. Current Visit: Yes (3) Obstructive sleep apnea Problem details: refusing his mask Status: Chronic Assessment and plan: Patient is back on the ventilator now. Current Visit: Yes (4) Alcoholic cirrhosis Status: Chronic Assessment and plan: Patient does have improvement in his liver test and his bilirubin is down to 2.0. He is fairly calm and responsive now. Current Visit: Yes (5) Aspiration pneumonitis Status: Resolved Assessment and plan: Patient has marked improvement in his chest x-ray and his pneumonia is much better. Clinically his lungs have cleared up nicely. Current Visit: Yes (6) Acute renal failure Status: Resolved Assessment and plan: His renal function is slightly better but he does have some chronic renal insufficiency with a creatinine of 2.5. His renal function has been stable. Current Visit: Yes (7) On mechanically assisted ventilation Status: Acute Assessment and plan: Patient is doing fairly well with weaning protocol will try to extubate in the next day or 2. Current Visit: Yes
[2016-07-10] MEDS: DILTIAZEM 30 MG TABLET PO SCH ×3 (06:32→18:30)
[2016-07-10] MEDS: ALBUMIN 25% 25 GM in PREMIX 1 EACH IV SCH ×3 (06:32→20:46)
[2016-07-10] MEDS: METOCLOPRAMIDE 10 MG/2 ML VIAL IV SCH ×3 (06:32→18:30)
[2016-07-10] MEDS: LEVOTHYROXINE 75 MCG TABLET PO SCH (06:32)
--- NOTE | 2016-07-10 09:04 | XRay Report ---
Referring Physician: Faustino Garcia MD Exam: XR chest 1V portable Date: July 10, 2016 at 3:16 AM Reason: Respiratory failure on ventilator Comparison: Chest one view portable July 09, 2016 Findings: An endotracheal tube, right-sided PICC, feeding tube and cardiac pacing device are again in place. The cardiac silhouette is again enlarged. There are scattered opacities within both lower lung zones. This likely represents atelectasis, but there could also be pneumonia. No pneumothorax is identified, but there may be minimal left pleural fluid. The osseous structures appear stable. Impression: The opacities in the left perihilar region have slightly improved, but there may be slight increased atelectasis at the right lung base. The study is otherwise similar to before. PROCEDURE INTERPRETED AT [facility] DEPARTMENT OF RADIOLOGY Final Report Signed by: Dr. David Rhoades
[2016-07-10] MEDS: FUROSEMIDE 40 MG/4 ML VIAL IV SCH (09:15)
[2016-07-10] MEDS: POTASSIUM CHLORIDE 20 MEQ/15 ML UDCUP NG SCH (09:15)
[2016-07-10] MEDS: NYSTATIN CREAM 15 GM TUBE TOP SCH ×2 (09:15→20:46)
[2016-07-10] MEDS: DESITIN 4OZ/NYSTATIN 15 GRAM MIXTURE PASTE TOP SCH ×2 (09:15→20:46)
[2016-07-10] MEDS: ASCORBIC ACID 500 MG TABLET PO SCH ×2 (09:15→20:46)
[2016-07-10] MEDS: LACTULOSE 20 GM/30 ML UDCUP PO SCH ×2 (09:15→20:46)
[2016-07-10] MEDS: MEGESTROL 400 MG/10 ML UDCUP PO SCH ×2 (09:15→20:46)
[2016-07-10] MEDS: MIDODRINE 5 MG TABLET PO SCH ×3 (09:15→20:46)
[2016-07-10] MEDS: PANTOPRAZOLE 40 MG VIAL IV SCH (09:17)
[2016-07-10] MEDS: THIAMINE 200 MG/2 ML VIAL IV SCH (09:20)
--- NOTE | 2016-07-10 12:41 | Internal Med Progress Note ---
Assessment and Plan (1) Respiratory failure Status: Acute Assessment and plan: 60-year-old male admitted to acute care * Respiratory failure. Continue CPAP trials * Pancreatitis. Better * Encephalopathy. Still quite sedated * Atrial flutter. Patient is in sinus rhythm * Acute renal failure. About the same * Continue current management Current Visit: Yes (2) Obstructive sleep apnea Problem details: refusing his mask Status: Chronic Current Visit: Yes (3) Acute pancreatitis Status: Resolved Current Visit: Yes Qualifiers: Pancreatitis type: alcohol induced (4) Aspiration pneumonitis Status: Resolved Current Visit: Yes (5) CHF (congestive heart failure) Status: Acute Current Visit: No Qualifiers: Congestive heart failure type: systolic Congestive heart failure chronicity : acute on chronic Qualified Code(s): I50.23 - Acute on chronic systolic ( congestive) heart failure (6) Atrial flutter Status: Resolved Current Visit: No Internal Medicine - PN: Subj Interval history: Patient appears comfortable on the ventilator. He is sedated but responds to voice. Exam (Progress Note) - Constitutional Vitals: Period Temp Pulse Resp BP Sys/Mcbride Pulse Ox Last 24 Hr 97.2 F-98.9 F 60-75 10-24 84-118/42-73 97-100 Exam: Examination: GENERAL: NAD. HEENT patient intubated NECK: Neck is supple. CVS: Regular rate and rhythm. RESPIRATORY: Lungs are clear. Few rales at bases ABDOMEN: Soft and nontender. EXT: No edema. Peripheral pulses are present. 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 Results - Labs CBC & BMP: 07/10/16 02:57 07/10/16 02:57 Lab Results: I have reviewed the past 24 hour labs Quality Measures - VTE Contraindication to Pharmacological VTE Prophylaxis: Active Bleeding
[2016-07-10] MEDS: ENOXAPARIN 40 MG/0.4 ML SYRINGE SUBCUT SCH (14:00)
[2016-07-11] MEDS: ALBUTEROL/IPRATROPIUM 3 ML NEB RESP TX SCH ×4 (00:33→23:50)
[2016-07-11] MEDS: INSULIN REGULAR 100 UNIT/ML SUBCUT SCH ×4 (00:40→17:42)
[2016-07-11] MEDS: DILTIAZEM 30 MG TABLET PO SCH ×4 (00:40→17:42)
[2016-07-11] MEDS: METOCLOPRAMIDE 10 MG/2 ML VIAL IV SCH ×4 (00:41→17:43)
[2016-07-11] MEDS: FAMOTIDINE 20 MG/2 ML VIAL IV SCH (00:41)
[2016-07-11] MEDS: ERYTHROMYCIN IV SCH ×3 (00:43→17:40)
[2016-07-11] MEDS: SODIUM CHLORIDE 0.9% IV SCH ×3 (00:43→17:40)
[2016-07-11 03:26] LABS: ABG Base Excess -1.2 MMOL/L (-2.5-2.5); ABG HCO3 21.9 MMOL/L (20-26); ABG Oxygen Saturation 98.2 % (95-100); ABG PCO2 32.3 MM HG (35-48); ABG PH 7.449 (7.35-7.45); ABG PO2 108.7 MM HG (80-95); ABG TCO2 22.9 MMOL/L (23-27)
[2016-07-11] MEDS: PROPOFOL 1,000 MG/100 ML BOTTLE IV SCH ×3 (04:02→20:41)
[2016-07-11 05:54] LABS: Albumin 5.6 G/DL (3.4-5.0); Calcium 10.9 MG/DL (8.5-10.1); Osmolality,Calculated 321.3 MOS/KG (273-304); Potassium 4.4 MMOL/L (3.5-5.1); Total Protein 7.5 G/DL (6.4-8.3)
[2016-07-11] MEDS: ALBUMIN 25% 25 GM in PREMIX 1 EACH IV SCH ×3 (06:13→20:43)
[2016-07-11] MEDS: LEVOTHYROXINE 75 MCG TABLET PO SCH (06:14)
--- NOTE | 2016-07-11 06:32 | Pulmonology Progress Note ---
Pulmonary - PN: Subj Interval history: Patient is a 60-year-old white man that is in very poor condition with obesity and chronic liver disease and heart disease. He was having more respiratory distress yesterday and had to be intubated. He was on the ventilator for several days but yesterday he was extubated. He has been breathing fairly well but he does require some suctioning. Over the weekend he had some arrhythmias with atrial fibrillation but is back in sinus rhythm now. Yesterday he developed more respiratory distress and dropped his O2 saturations. He has continued to have trouble clearing his secretions. He ultimately had to be reintubated yesterday. He developed complete atelectasis of his right lung. We did do a therapeutic bronchoscopy and clear secretions. His chest x-ray has improved nicely. For the past few days the patient has done a little better. He is doing prolonged CPAP trials now. He will respond a little better. He still is quite sedated at times. His chest x-ray overall looks better. Will hopefully extubate him tomorrow. Exam (Progress Note) - Constitutional Vitals: Period Temp Pulse Resp BP Sys/Mcbride Pulse Ox Last 24 Hr 97.2 F-98.3 F 60-72 10-24 90-118/9-75 99-100 Exam: General appearance: no distress (He is comfortable on the ventilator. He does respond when his sedation has been decreased.) - Head Head exam: Present: normal inspection, normocephalic - Eye Eye exam: Present: EOMI. Absent: scleral icterus Pupils: Present: KARLEE - ENT ENT exam: Present: other (Patient has a very narrow hypopharynx) he does have an NG tube in place. ET tube is in good position now. - Neck Neck exam: Present: other (Patient does have a large neck). Absent: lymphadenopathy, thyromegaly - Respiratory Respiratory exam: Present: He has good breath sounds bilaterally and he is moving air fairly well without any wheezing. - Cardiovascular Cardiovascular exam: Present: His heart rate is fairly regular rhythm now. - GI/Abdominal GI/Abdominal exam: Present: Hypoactive bowel sounds, soft, other (Abdomen is large). Absent: organomegaly, tenderness - Extremities Exam Extremities exam: Absent: calf tenderness, edema, he will move his extremities but is very weak. - Neurological Exam Neurological exam: Present: altered (Patient will respond and has been fairly cooperative on the ventilator.) - Psychiatric Psychiatric exam: Present: He is responding a little better now. - Skin Skin exam: Present: warm, dry Results - Labs CBC & BMP: 07/10/16 02:57 07/11/16 04:56 Labs: His PO2 is 108 with a PCO2 32 and a pH of 7.44 - Diagnostic Findings Procedure: Chest x-ray: image reviewed by me, report reviewed by me (Chest x- ray is stable and reasonably clear.) Assessment and Plan (1) NICM (nonischemic cardiomyopathy) Problem details: improved EF per updated ECHO Status: Chronic Assessment and plan: The patient does have cardiomegaly and has had a component of heart failure that is better. His ventricular ectopy is much improved. He appears to be hemodynamically stable at present. Current Visit: Yes (2) Paroxysmal atrial fibrillation Status: Chronic Assessment and plan: The patient has a regular rhythm now and his heart rate is better. His ectopy is much improved. Current Visit: Yes (3) Obstructive sleep apnea Problem details: refusing his mask Status: Chronic Assessment and plan: Patient is back on the ventilator now. He will probably need CPAP when he is off the ventilator. Current Visit: Yes (4) Alcoholic cirrhosis Status: Chronic Assessment and plan: Patient does have improvement in his liver test and his bilirubin is down to 1.0. He is fairly calm and responsive now. His liver enzymes are better. Current Visit: Yes (5) Aspiration pneumonitis Status: Resolved Assessment and plan: Patient has marked improvement in his chest x-ray and his pneumonia is much better. Clinically his lungs have cleared up nicely. His oxygenation has improved and he is doing CPAP better. Current Visit: Yes (6) Acute renal failure Status: Resolved Assessment and plan: His renal function is slightly better but he does have some chronic renal insufficiency with a creatinine of 2.3. His renal function has been stable. Current Visit: Yes (7) On mechanically assisted ventilation Status: Acute Assessment and plan: Patient is doing fairly well with weaning protocol and hopefully can try to extubate him tomorrow. Current Visit: Yes
[2016-07-11] MEDS: POTASSIUM CHLORIDE 20 MEQ/15 ML UDCUP NG SCH (09:01)
[2016-07-11] MEDS: MEGESTROL 400 MG/10 ML UDCUP PO SCH ×2 (09:01→20:43)
[2016-07-11] MEDS: LACTULOSE 20 GM/30 ML UDCUP PO SCH ×2 (09:01→20:42)
[2016-07-11] MEDS: ASCORBIC ACID 500 MG TABLET PO SCH ×2 (09:01→20:43)
[2016-07-11] MEDS: PANTOPRAZOLE 40 MG VIAL IV SCH (09:02)
[2016-07-11] MEDS: FUROSEMIDE 40 MG/4 ML VIAL IV SCH (09:02)
[2016-07-11] MEDS: NYSTATIN CREAM 15 GM TUBE TOP SCH ×2 (09:03→20:43)
[2016-07-11] MEDS: DESITIN 4OZ/NYSTATIN 15 GRAM MIXTURE PASTE TOP SCH ×2 (09:04→20:43)
[2016-07-11] MEDS: MIDODRINE 5 MG TABLET PO SCH ×3 (09:20→20:43)
[2016-07-11] MEDS: THIAMINE 200 MG/2 ML VIAL IV SCH (09:23)
--- NOTE | 2016-07-11 09:30 | XRay Report ---
Referring Physician: Faustino Garcia MD Exam: XR chest 1V portable Date: July 11, 2016 at 3:02 AM Reason: Respiratory failure on ventilator Comparison: Chest one view portable July 10, 2016 Findings: An endotracheal tube, right-sided PICC, feeding tube and cardiac pacing device are again in place. The cardiac silhouette is again enlarged. There are scattered opacities within both lower lung zones. This likely represents atelectasis, but superimposed pneumonia is not excluded. No pneumothorax is identified, but there may be minimal left pleural fluid. The osseous structures appear stable. Impression: There has been no significant change. PROCEDURE INTERPRETED AT [facility] DEPARTMENT OF RADIOLOGY Final Report Signed by: Dr. David Rhoades
--- NOTE | 2016-07-11 11:41 | Internal Med Progress Note ---
Assessment and Plan (1) Respiratory failure Status: Acute Assessment and plan: 60-year-old male admitted to acute care * Respiratory failure. He did well with CPAP trials yesterday. He went 13 hours. He is doing well today * Pancreatitis. Better * Encephalopathy. Still quite sedated * Atrial flutter. Patient is in sinus rhythm * Acute renal failure. Slowly improving * Continue current management Current Visit: Yes (2) Obstructive sleep apnea Problem details: refusing his mask Status: Chronic Current Visit: Yes (3) Acute pancreatitis Status: Resolved Current Visit: Yes Qualifiers: Pancreatitis type: alcohol induced (4) Aspiration pneumonitis Status: Resolved Current Visit: Yes (5) CHF (congestive heart failure) Status: Acute Current Visit: No Qualifiers: Congestive heart failure type: systolic Congestive heart failure chronicity : acute on chronic Qualified Code(s): I50.23 - Acute on chronic systolic ( congestive) heart failure (6) Atrial flutter Status: Resolved Current Visit: No Internal Medicine - PN: Subj Interval history: Patient appears comfortable on the ventilator. He is more alert today. Exam (Progress Note) - Constitutional Vitals: Period Temp Pulse Resp BP Sys/Mcbride Pulse Ox Last 24 Hr 97.8 F-98.3 F 60-72 10-24 89-128/9-81 99-100 Exam: Examination: GENERAL: NAD. HEENT patient intubated NECK: Neck is supple. CVS: Regular rate and rhythm. RESPIRATORY: Lungs are clear. Few rales at bases ABDOMEN: Soft and nontender. EXT: No edema. 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 Results - Labs CBC & BMP: 07/10/16 02:57 07/11/16 04:56 Lab Results: I have reviewed the past 24 hour labs Quality Measures - VTE Contraindication to Pharmacological VTE Prophylaxis: Active Bleeding
[2016-07-11] MEDS: ENOXAPARIN 40 MG/0.4 ML SYRINGE SUBCUT SCH (13:35)
[2016-07-12] MEDS: DILTIAZEM 30 MG TABLET PO SCH ×4 (00:21→17:55)
[2016-07-12] MEDS: SODIUM CHLORIDE 0.9% IV SCH ×3 (00:22→17:52)
[2016-07-12] MEDS: INSULIN REGULAR 100 UNIT/ML SUBCUT SCH ×5 (00:22→23:20)
[2016-07-12] MEDS: FAMOTIDINE 20 MG/2 ML VIAL IV SCH (00:22)
[2016-07-12] MEDS: ERYTHROMYCIN IV SCH ×3 (00:22→17:52)
[2016-07-12] MEDS: METOCLOPRAMIDE 10 MG/2 ML VIAL IV SCH ×4 (00:23→17:55)
[2016-07-12] MEDS: ALBUTEROL/IPRATROPIUM 3 ML NEB RESP TX SCH ×4 (01:46→18:57)
[2016-07-12 03:43] LABS: ABG Base Excess -0.8 MMOL/L (-2.5-2.5); ABG HCO3 22.4 MMOL/L (20-26); ABG Oxygen Saturation 98.5 % (95-100); ABG PCO2 31.4 MM HG (35-48); ABG PH 7.471 (7.35-7.45); ABG PO2 162.3 MM HG (80-95); ABG TCO2 23.4 MMOL/L (23-27); Allen Test Positive; Pt O2 Delivery Device Ventilator
[2016-07-12 05:08] LABS: Basophils % 0.3 % (0.0-0.8); Eosinophils # 0.5 10*3/uL (0.0-0.87); Eosinophils % 3.4 % (0.00-10.9); Hematocrit 25.8 VOL% (42.0-52.0); Hemoglobin 8.5 GM/DL (14.0-18.0); Immature Granulocytes % 3.7 %; Lymphocytes # 1.7 10*3/uL (1.4-4.0); Lymphocytes % 12.7 % (21.2-54.2); Mean Corpuscular HGB Conc 32.9 GM/DL (32-36); Mean Corpuscular Hemoglobin 32 PG (27-34); Mean Corpuscular Volume 96.6 FL (87-102); Mean Platelet Volume 12.7 FL (9.6-12.0); Monocytes # 2.1 10*3/uL (0.11-0.8); Monocytes % 15.6 % (1.7-12.7); Neutrophils # 8.7 10*3/uL (1.4-7.4); Neutrophils % 64.3 % (38.7-73.9); Platelet Count 215 T/CUMM (130-400); Red Blood Count 2.67 MC/CUMM (3.8-5.5); Red Cell Distribution Width 17.9 % (9.3-17.3); White Blood Count 13.6 T/CUMM (4-12)
[2016-07-12 05:40] LABS: Calcium 10.5 MG/DL (8.5-10.1); Osmolality,Calculated 324.1 MOS/KG (273-304); Potassium 4.8 MMOL/L (3.5-5.1)
[2016-07-12] MEDS: ALBUMIN 25% 25 GM in PREMIX 1 EACH IV SCH ×3 (05:42→21:55)
[2016-07-12 05:43] LABS: Magnesium 2.8 MG/DL (1.8-2.4); Phosphorous 5.8 MG/DL (2.5-4.9); Prealbumin 28.8 MG/DL (20-40)
[2016-07-12 05:48] LABS: Band Neutrophils 1 % (0-10); Eosinophils 2 % (0-10); Hypochromasia Slight; Lymphocytes 18 % (20-55); Macrocytosis Slight; Promyelocytes 1 %; Segmented Neutrophils 66 % (50-85); Total Cells Counted 100
[2016-07-12 05:49] LABS: Platelet Estimate Normal
--- NOTE | 2016-07-12 07:28 | Pulmonology Progress Note ---
Pulmonary - PN: Subj Interval history: Patient is a 60-year-old white man that is in very poor condition with obesity and chronic liver disease and heart disease. He was having more respiratory distress yesterday and had to be intubated. He was on the ventilator for several days but yesterday he was extubated. He has been breathing fairly well but he does require some suctioning. Over the weekend he had some arrhythmias with atrial fibrillation but is back in sinus rhythm now. Yesterday he developed more respiratory distress and dropped his O2 saturations. He has continued to have trouble clearing his secretions. He ultimately had to be reintubated yesterday. He developed complete atelectasis of his right lung. We did do a therapeutic bronchoscopy and clear secretions. His chest x-ray has improved nicely. For the past few days the patient has done a little better. He did well yesterday on CPAP. His chest x-ray still clear and his oxygenation is excellent. He apparently responds fairly well off of sedation. His vital signs been stable. Overall he is doing better and will try him off the ventilator. Exam (Progress Note) - Constitutional Vitals: Period Temp Pulse Resp BP Sys/Mcbride Pulse Ox Last 24 Hr 97.6 F-98.4 F 60-79 10-29 87-170/49-84 93-100 Exam: General appearance: no distress (He is comfortable on the ventilator. He does respond when his sedation has been decreased.) - Head Head exam: Present: normal inspection, normocephalic - Eye Eye exam: Present: EOMI. Absent: scleral icterus Pupils: Present: KARLEE - ENT ENT exam: Present: other (Patient has a very narrow hypopharynx) he does have an NG tube in place. ET tube is in good position now. - Neck Neck exam: Present: other (Patient does have a large neck). Absent: lymphadenopathy, thyromegaly - Respiratory Respiratory exam: Present: He has good breath sounds bilaterally and he is moving air fairly well without any wheezing. His lungs sound reasonably clear. - Cardiovascular Cardiovascular exam: Present: His heart rate is fairly regular rhythm now. - GI/Abdominal GI/Abdominal exam: Present: Hypoactive bowel sounds, soft, other (Abdomen is large). Absent: organomegaly, tenderness - Extremities Exam Extremities exam: Absent: calf tenderness, edema, he will move his extremities but is very weak. - Neurological Exam Neurological exam: Present: altered (Patient will respond and has been fairly cooperative on the ventilator.) - Psychiatric Psychiatric exam: Present: He is responding a little better now. - Skin Skin exam: Present: warm, dry Results - Labs CBC & BMP: 07/12/16 03:31 07/12/16 03:31 Labs: PO2 is 162 with a PCO2 31 and pH of 7.47 - Diagnostic Findings Procedure: Chest x-ray: image reviewed by me, report reviewed by me (His chest x -ray is basically clear now.) Assessment and Plan (1) NICM (nonischemic cardiomyopathy) Problem details: improved EF per updated ECHO Status: Chronic Assessment and plan: The patient does have cardiomegaly and has had a component of heart failure that is better. His ventricular ectopy is much improved. He has no signs of heart failure at present. Current Visit: Yes (2) Paroxysmal atrial fibrillation Status: Chronic Assessment and plan: The patient has a regular rhythm now and his heart rate is better. His ectopy is much improved. He is in a paced rhythm. Current Visit: Yes (3) Obstructive sleep apnea Problem details: refusing his mask Status: Chronic Assessment and plan: Patient is back on the ventilator now. He will probably need CPAP when he is off the ventilator. Current Visit: Yes (4) Alcoholic cirrhosis Status: Chronic Assessment and plan: Patient does have improvement in his liver test and his bilirubin is down to 1.0. He is fairly calm and responsive now. His liver enzymes are better. His encephalopathy is better. Current Visit: Yes (5) Aspiration pneumonitis Status: Resolved Assessment and plan: Patient has marked improvement in his chest x-ray and his pneumonia is much better. Clinically his lungs have cleared up nicely. His oxygenation has improved and he is doing CPAP better. Will try him off the ventilator today. Current Visit: Yes (6) Acute renal failure Status: Resolved Assessment and plan: His renal function is slightly better but he does have some chronic renal insufficiency with a creatinine of 2.2. His renal function has been stable. Current Visit: Yes (7) On mechanically assisted ventilation Status: Acute Assessment and plan: Patient is doing fairly well with weaning protocol and did CPAP all day yesterday. Will go ahead and extubate him today. Current Visit: Yes
--- NOTE | 2016-07-12 08:00 | XRay Report ---
XR chest 1V portable Indication: SOB Comparison: Chest x-ray dated July 11, 2016 Technique: Single frontal view of the chest Findings: Lines and tubes stable in positioning. Continued cardiomegaly. Cardiac pacemaker apparatus again noted. Mild bibasilar atelectasis suggested. Underlying infection not excluded. Osseous and surrounding soft tissue structures appear grossly unchanged. IMPRESSION: No significant interval change. PROCEDURE INTERPRETED AT [facility] DEPARTMENT OF RADIOLOGY Final Report Signed by: Dr Sergo Tai
[2016-07-12] MEDS: LEVOTHYROXINE 75 MCG TABLET PO SCH (08:11)
[2016-07-12] MEDS: MEGESTROL 400 MG/10 ML UDCUP PO SCH ×2 (08:23→21:44)
[2016-07-12] MEDS: POTASSIUM CHLORIDE 20 MEQ/15 ML UDCUP NG SCH (08:24)
[2016-07-12] MEDS: NYSTATIN CREAM 15 GM TUBE TOP SCH ×2 (08:24→21:45)
[2016-07-12] MEDS: DESITIN 4OZ/NYSTATIN 15 GRAM MIXTURE PASTE TOP SCH ×2 (08:24→22:32)
[2016-07-12] MEDS: ASCORBIC ACID 500 MG TABLET PO SCH ×2 (08:24→21:44)
[2016-07-12] MEDS: PANTOPRAZOLE 40 MG VIAL IV SCH (08:25)
[2016-07-12] MEDS: FUROSEMIDE 40 MG/4 ML VIAL IV SCH (08:25)
[2016-07-12] MEDS: LACTULOSE 20 GM/30 ML UDCUP PO SCH ×2 (08:25→21:44)
[2016-07-12] MEDS: THIAMINE 200 MG/2 ML VIAL IV SCH (08:29)
[2016-07-12] MEDS: MIDODRINE 5 MG TABLET PO SCH ×3 (08:29→21:44)
--- NOTE | 2016-07-12 08:39 | Internal Med Progress Note ---
Assessment and Plan (1) Respiratory failure Status: Acute Assessment and plan: 60-year-old male admitted to acute care * Respiratory failure. Done well with CPAP trials. Plan to extubate today * Pancreatitis. Better * Encephalopathy. Still quite sedated * Atrial flutter. Patient is in sinus rhythm * Acute renal failure. Slowly improving * Continue current management Current Visit: Yes (2) Obstructive sleep apnea Problem details: refusing his mask Status: Chronic Current Visit: Yes (3) Acute pancreatitis Status: Resolved Current Visit: Yes Qualifiers: Pancreatitis type: alcohol induced (4) Aspiration pneumonitis Status: Resolved Current Visit: Yes (5) CHF (congestive heart failure) Status: Acute Current Visit: No Qualifiers: Congestive heart failure type: systolic Congestive heart failure chronicity : acute on chronic Qualified Code(s): I50.23 - Acute on chronic systolic ( congestive) heart failure (6) Atrial flutter Status: Resolved Current Visit: No Internal Medicine - PN: Subj Interval history: Patient appears comfortable on the ventilator. Patient sedation has been discontinued. Exam (Progress Note) - Constitutional Vitals: Period Temp Pulse Resp BP Sys/Mcbride Pulse Ox Last 24 Hr 97.6 F-98.4 F 60-79 10-29 87-170/49-84 93-100 Exam: Examination: GENERAL: NAD. HEENT patient intubated NECK: Neck is supple. CVS: Regular rate and rhythm. RESPIRATORY: Lungs are clear. Few rales at bases ABDOMEN: Soft and nontender. EXT: No edema. 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 Results - Labs CBC & BMP: 07/12/16 03:31 07/12/16 03:31 Lab Results: I have reviewed the past 24 hour labs Quality Measures - VTE Contraindication to Pharmacological VTE Prophylaxis: Active Bleeding
[2016-07-12] MEDS: ENOXAPARIN 40 MG/0.4 ML SYRINGE SUBCUT SCH (15:35)
[2016-07-13] MEDS: METOCLOPRAMIDE 10 MG/2 ML VIAL IV SCH ×4 (00:05→17:04)
[2016-07-13] MEDS: FAMOTIDINE 20 MG/2 ML VIAL IV SCH (00:08)
[2016-07-13] MEDS: DILTIAZEM 30 MG TABLET PO SCH ×4 (00:11→17:04)
[2016-07-13] MEDS: ALBUTEROL/IPRATROPIUM 3 ML NEB RESP TX SCH ×4 (00:52→20:13)
[2016-07-13] MEDS: ERYTHROMYCIN IV SCH ×3 (03:25→17:04)
[2016-07-13] MEDS: SODIUM CHLORIDE 0.9% IV SCH ×3 (03:25→17:04)
[2016-07-13 05:59] LABS: Basophils % 0.3 % (0.0-0.8); Eosinophils # 0.5 10*3/uL (0.0-0.87); Eosinophils % 3.2 % (0.00-10.9); Hematocrit 27.9 VOL% (42.0-52.0); Immature Granulocytes % 2.5 %; Immature Granulocytes Absolute 0.38 #; Lymphocytes # 1.5 10*3/uL (1.4-4.0); Lymphocytes % 9.7 % (21.2-54.2); Mean Corpuscular HGB Conc 32.3 GM/DL (32-36); Mean Corpuscular Hemoglobin 31 PG (27-34); Mean Corpuscular Volume 96.9 FL (87-102); Mean Platelet Volume 12.2 FL (9.6-12.0); Monocytes # 2.4 10*3/uL (0.11-0.8); Monocytes % 15.4 % (1.7-12.7); Neutrophils # 10.6 10*3/uL (1.4-7.4); Neutrophils % 68.9 % (38.7-73.9); Platelet Count 212 T/CUMM (130-400); Red Blood Count 2.88 MC/CUMM (3.8-5.5); Red Cell Distribution Width 17.6 % (9.3-17.3); White Blood Count 15.3 T/CUMM (4-12)
[2016-07-13] MEDS: LEVOTHYROXINE 75 MCG TABLET PO SCH (06:14)
[2016-07-13] MEDS: ALBUMIN 25% 25 GM in PREMIX 1 EACH IV SCH ×3 (06:15→21:35)
[2016-07-13] MEDS: INSULIN REGULAR 100 UNIT/ML SUBCUT SCH ×3 (06:20→17:53)
[2016-07-13 06:33] LABS: Calcium 11.1 MG/DL (8.5-10.1); Osmolality,Calculated 327.8 MOS/KG (273-304); Potassium 4.9 MMOL/L (3.5-5.1)
--- NOTE | 2016-07-13 07:25 | Pulmonology Progress Note ---
Pulmonary - PN: Subj Interval history: Patient is a 60-year-old white man that is in very poor condition with obesity and chronic liver disease and heart disease. He was having more respiratory distress yesterday and had to be intubated. He was on the ventilator for several days but yesterday he was extubated. He has been breathing fairly well but he does require some suctioning. Over the weekend he had some arrhythmias with atrial fibrillation but is back in sinus rhythm now. Yesterday he developed more respiratory distress and dropped his O2 saturations. He has continued to have trouble clearing his secretions. He ultimately had to be reintubated yesterday. He developed complete atelectasis of his right lung. We did do a therapeutic bronchoscopy and clear secretions. His chest x-ray has improved nicely. Yesterday he was extubated and has done fairly well with his breathing. However he does not follow commands. He moans and grimaces but has not been very alert. His O2 saturations have been adequate and he is done well with his breathing. Overall his vital signs have been stable. Exam (Progress Note) - Constitutional Vitals: Period Temp Pulse Resp BP Sys/Mcbride Pulse Ox Last 24 Hr 97.6 F-98.6 F 60-87 11-31 99-151/44-81 93-100 Exam: General appearance: no distress (He is comfortable on low-flow oxygen but does grimace but is not alert.) - Head Head exam: Present: normal inspection, normocephalic - Eye Eye exam: Present: EOMI. Absent: scleral icterus Pupils: Present: KARLEE - ENT ENT exam: Present: other (Patient has a very narrow hypopharynx) he does have an NG tube in place. - Neck Neck exam: Present: other (Patient does have a large neck). Absent: lymphadenopathy, thyromegaly - Respiratory Respiratory exam: Present: He has fairly good air movement bilaterally with mild rhonchi but no significant wheezing. - Cardiovascular Cardiovascular exam: Present: His heart rate is fairly regular rhythm now. - GI/Abdominal GI/Abdominal exam: Present: Hypoactive bowel sounds, soft, other (Abdomen is large). Absent: organomegaly, tenderness - Extremities Exam Extremities exam: Absent: calf tenderness, edema, he will move his extremities but is very weak. - Neurological Exam Neurological exam: Present: altered (Patient will grimace and moan but does not follow.) - Psychiatric Psychiatric exam: Present: He is restless but has not been terribly agitated. - Skin Skin exam: Present: warm, dry Results - Labs CBC & BMP: 07/13/16 05:17 07/13/16 05:17 Assessment and Plan (1) NICM (nonischemic cardiomyopathy) Problem details: improved EF per updated ECHO Status: Chronic Assessment and plan: The patient does have cardiomegaly and has had a component of heart failure that is better. His ventricular ectopy is much improved. He has no signs of heart failure at present. Current Visit: Yes (2) Paroxysmal atrial fibrillation Status: Chronic Assessment and plan: The patient has a regular rhythm now and his heart rate is better. His ectopy is much improved. He is in a paced rhythm. Current Visit: Yes (3) Obstructive sleep apnea Problem details: refusing his mask Status: Chronic Assessment and plan: Patient is doing okay off the ventilator but will need CPAP at night. Current Visit: Yes (4) Alcoholic cirrhosis Status: Chronic Assessment and plan: Patient does have improvement in his liver test and his bilirubin is down to 1.0. He is fairly calm and responsive now. His liver enzymes are better. He is still quite encephalopathic. Current Visit: Yes (5) Aspiration pneumonitis Status: Resolved Assessment and plan: Patient has marked improvement in his chest x-ray and his pneumonia is much better. Clinically his lungs have cleared up nicely. He is doing fairly well off the ventilator. Current Visit: Yes (6) Acute renal failure Status: Resolved Assessment and plan: His renal function is slightly better but he does have some chronic renal insufficiency with a creatinine of 2.0. His renal function has been stable. Current Visit: Yes (7) On mechanically assisted ventilation Status: Resolved Assessment and plan: Patient is off the ventilator now and breathing fairly comfortably. Will continue with vigorous respiratory therapy. Current Visit: No
--- NOTE | 2016-07-13 09:48 | Internal Med Progress Note ---
Assessment and Plan (1) Respiratory failure Status: Acute Assessment and plan: 60-year-old male admitted to acute care * Respiratory failure. Patient extubated yesterday. He is having difficulty with secretions. He is requiring intensive respiratory management * Pancreatitis. Better * Encephalopathy. He is lethargic. Will check ammonia level * Atrial flutter. Patient is in sinus rhythm * Acute renal failure. Slowly improving * Continue current management Current Visit: Yes (2) Obstructive sleep apnea Problem details: refusing his mask Status: Chronic Current Visit: Yes (3) Acute pancreatitis Status: Resolved Current Visit: Yes Qualifiers: Pancreatitis type: alcohol induced (4) Aspiration pneumonitis Status: Resolved Current Visit: Yes (5) CHF (congestive heart failure) Status: Acute Current Visit: No Qualifiers: Congestive heart failure type: systolic Congestive heart failure chronicity : acute on chronic Qualified Code(s): I50.23 - Acute on chronic systolic ( congestive) heart failure (6) Atrial flutter Status: Resolved Current Visit: No Internal Medicine - PN: Subj Interval history: Patient is poorly responsive this morning. He is not answering questions. Exam (Progress Note) - Constitutional Vitals: Period Temp Pulse Resp BP Sys/Mcbride Pulse Ox Last 24 Hr 97.6 F-98.6 F 65-87 17-31 99-151/44-81 93-100 Exam: Examination: GENERAL: NAD. NECK: Neck is supple. CVS: Regular rate and rhythm. RESPIRATORY: Lungs are clear. Few rales at bases ABDOMEN: Soft and nontender. EXT: No edema. INCIDENT ANALYST: Patient appears poorly responsive SKIN: Warm and dry. Results - Labs CBC & BMP: 07/13/16 05:17 07/13/16 05:17 Lab Results: I have reviewed the past 24 hour labs Quality Measures - VTE Contraindication to Pharmacological VTE Prophylaxis: Active Bleeding
[2016-07-13] MEDS: LACTULOSE 20 GM/30 ML UDCUP PO SCH ×2 (09:52→21:22)
[2016-07-13] MEDS: MEGESTROL 400 MG/10 ML UDCUP PO SCH ×2 (09:53→21:22)
[2016-07-13] MEDS: FUROSEMIDE 40 MG/4 ML VIAL IV SCH (09:53)
[2016-07-13] MEDS: MIDODRINE 5 MG TABLET PO SCH ×3 (09:53→21:22)
[2016-07-13] MEDS: PANTOPRAZOLE 40 MG VIAL IV SCH (09:53)
[2016-07-13] MEDS: THIAMINE 200 MG/2 ML VIAL IV SCH (09:53)
[2016-07-13] MEDS: DESITIN 4OZ/NYSTATIN 15 GRAM MIXTURE PASTE TOP SCH ×2 (09:53→21:23)
[2016-07-13] MEDS: NYSTATIN CREAM 15 GM TUBE TOP SCH ×2 (09:53→21:22)
[2016-07-13] MEDS: ASCORBIC ACID 500 MG TABLET PO SCH ×2 (09:54→21:21)
[2016-07-13] MEDS: POTASSIUM CHLORIDE 20 MEQ/15 ML UDCUP NG SCH (10:07)
[2016-07-13] MEDS: ENOXAPARIN 40 MG/0.4 ML SYRINGE SUBCUT SCH (15:01)
[2016-07-13] MEDS: KETOCONAZOLE 2% SHAMPOO 120 ML BOTTLE TOP SCH (21:23)
[2016-07-14] MEDS: ALBUTEROL/IPRATROPIUM 3 ML NEB RESP TX SCH ×5 (00:54→20:05)
[2016-07-14] MEDS: FAMOTIDINE 20 MG/2 ML VIAL IV SCH (01:15)
[2016-07-14] MEDS: METOCLOPRAMIDE 10 MG/2 ML VIAL IV SCH ×4 (01:16→18:10)
[2016-07-14] MEDS: DILTIAZEM 30 MG TABLET PO SCH ×4 (01:18→17:48)
[2016-07-14] MEDS: ERYTHROMYCIN IV SCH ×3 (01:25→16:51)
[2016-07-14] MEDS: INSULIN REGULAR 100 UNIT/ML SUBCUT SCH ×4 (01:25→18:09)
[2016-07-14] MEDS: SODIUM CHLORIDE 0.9% IV SCH ×3 (01:25→16:51)
[2016-07-14] MEDS: ALBUMIN 25% 25 GM in PREMIX 1 EACH IV SCH ×3 (04:28→20:40)
[2016-07-14] MEDS: METOPROLOL TARTRATE 5 MG/5 ML VIAL IV PRN (05:24)
[2016-07-14 05:41] LABS: Basophils % 0.2 % (0.0-0.8); Eosinophils # 0.5 10*3/uL (0.0-0.87); Eosinophils % 3.3 % (0.00-10.9); Hematocrit 28.6 VOL% (42.0-52.0); Hemoglobin 9.3 GM/DL (14.0-18.0); Immature Granulocytes % 1.7 %; Immature Granulocytes Absolute 0.25 #; Lymphocytes # 1.6 10*3/uL (1.4-4.0); Lymphocytes % 11.3 % (21.2-54.2); Mean Corpuscular HGB Conc 32.5 GM/DL (32-36); Mean Corpuscular Hemoglobin 32 PG (27-34); Mean Corpuscular Volume 98.6 FL (87-102); Monocytes # 2.3 10*3/uL (0.11-0.8); Monocytes % 15.7 % (1.7-12.7); Neutrophils # 9.7 10*3/uL (1.4-7.4); Neutrophils % 67.8 % (38.7-73.9); Platelet Count 204 T/CUMM (130-400); Red Cell Distribution Width 17.9 % (9.3-17.3); White Blood Count 14.4 T/CUMM (4-12)
[2016-07-14 06:00] LABS: Band Neutrophils 1 % (0-10); Eosinophils 3 % (0-10); Lymphocytes 16 % (20-55); Segmented Neutrophils 67 % (50-85); Total Cells Counted 100
[2016-07-14 06:01] LABS: Hypochromasia 1+; Macrocytosis Slight; Platelet Estimate Normal
[2016-07-14 06:11] LABS: Calcium 11.2 MG/DL (8.5-10.1); Osmolality,Calculated 330.4 MOS/KG (273-304)
[2016-07-14] MEDS: LEVOTHYROXINE 75 MCG TABLET PO SCH (06:32)
--- NOTE | 2016-07-14 07:13 | Pulmonology Progress Note ---
Pulmonary - PN: Subj Interval history: Patient is a 60-year-old white man that is in very poor condition with obesity and chronic liver disease and heart disease. He was having more respiratory distress yesterday and had to be intubated. He was on the ventilator for several days but yesterday he was extubated. He has been breathing fairly well but he does require some suctioning. Over the weekend he had some arrhythmias with atrial fibrillation but is back in sinus rhythm now. Yesterday he developed more respiratory distress and dropped his O2 saturations. He has continued to have trouble clearing his secretions. He ultimately had to be reintubated yesterday. He developed complete atelectasis of his right lung. We did do a therapeutic bronchoscopy and clear secretions. His chest x-ray has improved nicely. The patient has done reasonably well with his breathing through the night. He did go back into rapid atrial fibrillation. He is back on Cardizem infusion. He arouses but does not follow commands. He is very debilitated. Exam (Progress Note) - Constitutional Vitals: Period Temp Pulse Resp BP Sys/Mcbride Pulse Ox Last 24 Hr 97.4 F-99.4 F 69-142 14-37 94-138/46-80 93-100 Exam: General appearance: no distress (He is comfortable on low-flow oxygen but does grimace but is not alert. He does not have labored breathing.) - Head Head exam: Present: normal inspection, normocephalic - Eye Eye exam: Present: EOMI. Absent: scleral icterus Pupils: Present: KARLEE - ENT ENT exam: Present: other (Patient has a very narrow hypopharynx) he does have an NG tube in place. - Neck Neck exam: Present: other (Patient does have a large neck). Absent: lymphadenopathy, thyromegaly - Respiratory Respiratory exam: Present: He has fairly good air movement bilaterally with mild rhonchi but no significant wheezing. He is moving air okay. - Cardiovascular Cardiovascular exam: Present: His heart rate is irregularly irregular and fairly rapid now. - GI/Abdominal GI/Abdominal exam: Present: Hypoactive bowel sounds, soft, other (Abdomen is large). Absent: organomegaly, tenderness - Extremities Exam Extremities exam: Absent: calf tenderness, edema, he will move his extremities but is very weak. - Neurological Exam Neurological exam: Present: altered (Patient will grimace and moan but does not follow commands.) - Psychiatric Psychiatric exam: Present: He is restless but has not been terribly agitated. - Skin Skin exam: Present: warm, dry Results - Labs CBC & BMP: 07/14/16 05:34 07/14/16 05:34 Assessment and Plan (1) NICM (nonischemic cardiomyopathy) Problem details: improved EF per updated ECHO Status: Chronic Assessment and plan: The patient does have cardiomegaly and has had a component of heart failure that is better. His ventricular ectopy is much improved. He has no signs of heart failure at present. Current Visit: Yes (2) Paroxysmal atrial fibrillation Status: Chronic Assessment and plan: The patient is back in atrial fibrillation now and is back on a Cardizem infusion. Current Visit: Yes (3) Obstructive sleep apnea Problem details: refusing his mask Status: Chronic Assessment and plan: Patient is doing okay off the ventilator but will need CPAP at night. Current Visit: Yes (4) Alcoholic cirrhosis Status: Chronic Assessment and plan: Patient does have improvement in his liver test and his bilirubin is down to 1.0. He is fairly calm and responsive now. His liver enzymes are better. He is still quite encephalopathic. He still does not follow commands Current Visit: Yes (5) Aspiration pneumonitis Status: Resolved Assessment and plan: Patient has marked improvement in his chest x-ray and his pneumonia is much better. Clinically his lungs have cleared up nicely. He is doing fairly well off the ventilator. Current Visit: Yes (6) Acute renal failure Status: Resolved Assessment and plan: His renal function is slightly better but he does have some chronic renal insufficiency with a creatinine of 1.9. His renal function has been stable. Current Visit: Yes
[2016-07-14] MEDS: FUROSEMIDE 40 MG/4 ML VIAL IV SCH (08:18)
[2016-07-14] MEDS: LACTULOSE 20 GM/30 ML UDCUP PO SCH ×2 (08:18→20:41)
[2016-07-14] MEDS: MEGESTROL 400 MG/10 ML UDCUP PO SCH ×2 (08:18→20:41)
[2016-07-14] MEDS: POTASSIUM CHLORIDE 20 MEQ/15 ML UDCUP NG SCH (08:19)
[2016-07-14] MEDS: MIDODRINE 5 MG TABLET PO SCH ×3 (08:19→20:40)
[2016-07-14] MEDS: THIAMINE 200 MG/2 ML VIAL IV SCH (08:19)
[2016-07-14] MEDS: PANTOPRAZOLE 40 MG VIAL IV SCH (08:19)
[2016-07-14] MEDS: ASCORBIC ACID 500 MG TABLET PO SCH ×2 (08:20→20:40)
[2016-07-14] MEDS: NYSTATIN CREAM 15 GM TUBE TOP SCH ×2 (08:29→20:41)
[2016-07-14] MEDS: DESITIN 4OZ/NYSTATIN 15 GRAM MIXTURE PASTE TOP SCH ×2 (08:30→20:41)
--- NOTE | 2016-07-14 08:55 | Internal Med Progress Note ---
Assessment and Plan (1) Respiratory failure Status: Acute Assessment and plan: 60-year-old male admitted to acute care * Respiratory failure. Patient is still having difficulty with secretions. * Pancreatitis. Better * Encephalopathy. He continues to be lethargic * Atrial flutter. He is in rapid A. fib. Will reconsult cardiology * Acute renal failure. Slowly improving * Patient is DNR * No family is present. Current Visit: Yes (2) Obstructive sleep apnea Problem details: refusing his mask Status: Chronic Current Visit: Yes (3) Acute pancreatitis Status: Resolved Current Visit: Yes Qualifiers: Pancreatitis type: alcohol induced (4) Aspiration pneumonitis Status: Resolved Current Visit: Yes (5) CHF (congestive heart failure) Status: Acute Current Visit: No Qualifiers: Congestive heart failure type: systolic Congestive heart failure chronicity : acute on chronic Qualified Code(s): I50.23 - Acute on chronic systolic ( congestive) heart failure (6) Atrial flutter Status: Resolved Current Visit: No Internal Medicine - PN: Subj Interval history: Patient is poorly responsive. He is extremely drowsy. He is tolerating tube feedings. He is not following commands. Exam (Progress Note) - Constitutional Vitals: Period Temp Pulse Resp BP Sys/Mcbride Pulse Ox Last 24 Hr 97.4 F-99.4 F 70-142 14-37 94-138/46-80 93-100 Exam: Examination: GENERAL: NAD. NECK: Neck is supple. CVS: Rhythm is irregularly irregular and tachycardia RESPIRATORY: Lungs are clear. Few rales at bases ABDOMEN: Soft and nontender. EXT: No edema. NURSE HEALTHCARE MANAGER: Patient appears poorly responsive SKIN: Warm and dry. Results - Labs CBC & BMP: 07/14/16 05:34 07/14/16 05:34 Lab Results: I have reviewed the past 24 hour labs Quality Measures - VTE Contraindication to Pharmacological VTE Prophylaxis: Active Bleeding
[2016-07-14] MEDS: ENOXAPARIN 40 MG/0.4 ML SYRINGE SUBCUT SCH (14:25)
--- NOTE | 2016-07-14 15:07 | Neurology Progress Note ---
Neurology - PN : Subjective Interval history: Unchanged neurologically. No new problems reported. Still wakes up at times and occasionally follow commands. Exam (Progress Note) - Constitutional Vitals: Period Temp Pulse Resp BP Sys/Mcbride Pulse Ox Last 24 Hr 96.8 F-99.4 F 72-142 16-37 87-138/51-81 93-100 Exam: GENERAL: Patient is in no acute distress. NECK: Neck is supple. There is no JVD. No carotid bruits present. No thyroid masses. CVS: First and second heart sounds are normal. There is no S3 present. Regular rate and rhythm. RESPIRATORY: Lungs are clear to auscultation without any rales or rhonchi. ABDOMEN: Soft and non-tender. Bowel sounds are present. There is no hepatosplenomegaly. EXT: There is no palpable edema. Peripheral pulses are present. Skin: No rashes Central Nervous system: General: Unresponsive Speech: None Comprehension: None Facial expressions: Normal Cranial Nerves: Pupils are sluggish but reactive. Doll's head eye movements are positive. No facial asymmetry is seen. Motor: Strength cannot be assessed. Sensory: Cannot be a Reflexes: 1+ and symmetrical Cerebellar function: Cannot be assessed Toes: Equivocal Gait: Cannot be assessed Results - Labs CBC & BMP: 07/14/16 05:34 07/14/16 05:34 Assessment and Plan (1) Encephalopathy Status: Acute Assessment and plan: multifactorial including hypoxic/anoxic/infectious etiology. Continue current supportive management at this time. No new recommendations from neuro standpoint Overall prognosis currently guarded Current Visit: Yes Quality Measures - VTE Contraindication to Pharmacological VTE Prophylaxis: Active Bleeding
--- NOTE | 2016-07-14 16:19 | Cardiology Consult Note ---
<Risa Hannon Jacky - Last Filed: 07/14/16 15:58> Assessment and Plan - Time spent with patient Time spent with patient: Greater than 30 minutes (due to assessment, plan, and documentation.) (1) Paroxysmal atrial fibrillation Status: Chronic Assessment and plan: SEE PLAN OF CARE LISTED BELOW. Current Visit: Yes (2) CHF (congestive heart failure) Status: Acute Assessment and plan: SEE PLAN OF CARE LISTED BELOW. Current Visit: No Qualifiers: Congestive heart failure type: systolic Congestive heart failure chronicity : acute on chronic Qualified Code(s): I50.23 - Acute on chronic systolic ( congestive) heart failure (3) Obstructive sleep apnea Problem details: refusing his mask Status: Chronic Assessment and plan: SEE PLAN OF CARE LISTED BELOW. Current Visit: Yes (4) Hypertension Status: Chronic Assessment and plan: SEE PLAN OF CARE LISTED BELOW. Current Visit: No (5) Obesity Status: Chronic Assessment and plan: SEE PLAN OF CARE LISTED BELOW. Current Visit: Yes (6) Alcohol abuse Status: Chronic Assessment and plan: SEE PLAN OF CARE LISTED BELOW. Current Visit: Yes (7) Failure to thrive Status: Chronic Assessment and plan: SEE PLAN OF CARE LISTED BELOW. Current Visit: Yes Qualifiers: Failure to thrive age range: in adult Qualified Code(s): R62.7 - Adult failure to thrive (8) Hypotension Status: Resolved Assessment and plan: SEE PLAN OF CARE LISTED BELOW. 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 CONLEY (last seen in 2013) PCP: DR. BOONE Mr. Tracy is a 60 year old male who has not followed with Dr. Conley since 2013. He has a history of anxiety, atrial fibrillation, diabetes, hypertension, psoriasis, tachybradycardia syndrome status post dual-chamber pacemaker placement, obstructive sleep apnea (noncompliant), hyperlipidemia, EtOH abuse. Risk factors are significant for: Diabetes, hyperlipidemia, hypertension, obesity, sedentary lifestyle. He was admitted to the hospital on June 15, 2016 and found to have pancreatitis , liver failure, and hepatorenal syndrome. He has been seen by gastroenterology , sleep medicine, nephrology. He required intubation for several days and has been extubated and is now on O2 via facemask. He has been minimally responsive and neurology has been following his encephalopathy. He is now arousable to verbal stimuli but will not follow commands. We were initially consulted to see him due to refractory tachycardia. We followed him and treated his atrial flutter w/ RVR for several days. He was being maintained on PO Cardizem in addition to Vitamin C and electrolyte replacement therapy and we subsequently signed off on 07/09/16. This morning, he went back into atrial fibrillation with rapid ventricular response and we were reconsulted. He currently has rates in the 120s-130s and is on IV Cardizem. He was previously on sotalol but this was discontinued due to it producing a proarrhythmic effect with VT/torsades. He has IV Lopressor PRN but his blood pressure will occasionally drop to 80s systolic so this has not been able to be utilized. We will give him some IV digoxin in an attempt to control his rate. Overall, Mr. Tracy has a very poor prognosis. Dr. Butcher to follow with further plan and addendum. ASSESSMENT/PLAN: 1. PAROXYSMAL ATRIAL FIBRILLATION - Now in AF w/ RVR. Currently on IV Cardizem. Sotalol stopped due to VT/torsades. Unable to tolerate beta shantelle due to intermittent hypotension. Will load with digoxin and start daily and see if he responds to this. He was previously on aspirin and Eliquis for stroke prevention. These are being held due to his profound anemia. He has required transfusion of 5 units PRBCs this admission, last transfusion on 06/21/2016. He has been started on Lovenox for DVT prophylaxis and stroke protection. 2. CHF - Echocardiogram 06/16/16 revealed EF 60%, grade I/IV diastolic dysfunction. Probably due to volume issues and his other underlying problems. 3. OBSTRUCTIVE SLEEP APNEA - He has previously been noncompliant with CPAP and refused to wear his mask. Complicates his overall issues. Has been ventilated and now extubated and on O2 via facemask. 4. HYPERTENSION - Blood pressures have been up and down. No longer requiring vasopressor support. Will continue to monitor. 5. OBESITY 6. ALCOHOL ABUSE - Per Dr. Garcia's notes, the patient's would like for him to go to a treatment center when he is medically stable; however, he may require [facility] to [facility] and[facility]or [facility]. His prognosis is very poor. This complicates his overall issues. 7. FAILURE TO THRIVE - This is secondary to multiple medical issues and problems. 8. HYPOTENSION - His hypotension is complicated by his multiple medical problems. He is no longer requiring vasopressor support and is on IV Cardizem for his AF w/ RVR. He is not able to tolerate beta blockers due to his intermittent low blood pressures and will subsequently be tried on digoxin. Will continue to monitor. CC: Yair Boone MD - Home Medications and Allergies Home Medications: Home Medications Medication Instructions Recorded Confirmed Type Apixaban [Eliquis] 5 mg PO BID #60 tablet 12/18/15 06/15/16 Rx Aspirin Chew Tab 81 mg PO DAILY tablet 12/18/15 06/15/16 Rx Diltiazem Cd Cap [Cardizem CD] 180 mg PO DAILY #30 capsule 12/18/15 06/15/16 Rx Furosemide Tab [Lasix Tab] 40 mg PO BID DIURETIC #60 tablet 12/18/15 06/15/16 Rx Losartan [Cozaar] 25 mg PO DAILY #30 tablet 12/18/15 06/15/16 Rx Magnesium Oxide 800 mg PO BID #60 tablet 12/18/15 06/15/16 Rx Nitroglycerin Sl Tab [Nitrostat] 0.4 mg SL Q5M PRN #30 tablet 12/18/15 06/15/16 Rx Sotalol [Betapace] 80 mg PO BID #60 tablet 12/18/15 06/15/16 Rx Spironolactone [Aldactone] 50 mg PO DAILY #30 tablet 12/18/15 06/15/16 Rx Furosemide [Lasix] 40 mg PO BID 06/15/16 06/15/16 History Levothyroxine Tab [Synthroid Tab] 75 mcg PO DAILY@0700 06/15/16 06/15/16 History Potassium Chloride 20 meq PO BID 06/15/16 06/15/16 History Allergies/Adverse Reactions: Allergies Allergy/AdvReac Type Severity Reaction Status Date / Time lorazepam [From Ativan] AdvReac Severe Anxiety Verified 06/16/16 19:31 Review of systems: - Constitutional: Present: anorexia, fatigue, As per HPI. Absent: chills, daytime sleepiness, excessive sweating, fever(s), frequent falls, headache(s), increased appetite, lethargy, malaise, night sweats, stops breathing during sleep, weakness, weight gain, weight loss, - EENT Eyes: Present: As per HPI. Absent: blurry vision, diplopia, loss of vision Ears: Present: As per HPI. Absent: decreased hearing, ear discharge, ear pain Nose, mouth and throat: Present: As per HPI. Absent: dysphagia, epistaxis, headache(s), hoarseness, lip swelling, nasal congestion, neck mass, neck pain, sinus pressure, sore throat, throat swelling, tongue swelling, vertigo - Cardiovascular: Present: palpitations, as per HPI. Absent: chest pain at rest , chest pain with activity, dyspnea, dyspnea on exertion, edema, claudication, diaphoresis, radiating jaw, neck or arm pain, lightheadedness, orthopnea, PND - Respiratory: Present: as per HPI. Absent: dyspnea, dyspnea on exertion, cough , hemoptysis, wheezing, snoring, pain on inspiration - Gastrointestinal: Present: abdominal pain, bloating, As per HPI. Absent: change in bowel habits, constipation, diarrhea, heartburn, hematemesis, hematochezia, loose stools, melena, nausea, vomiting - Genitourinary: Present: As per HPI. Absent: difficulty urinating, dysuria, flank pain, hematuria, nocturia, urinary frequency, urinary incontinence - Musculoskeletal: Present: muscle weakness, As per HPI. Absent: arthralgias, back pain, joint swelling, limited range of motion, muscle cramps, myalgias - Neurological: Present:abnormal gait, abnormal speech, behavioral changes, As per HPI. Absent: confusion, convulsions, disequilibrium, dizziness, focal weakness, frequent falls, headache(s), memory loss, numbness, paresthesias, radicular pain, syncope, tremor(s) - Psychiatric: Present: confusion, As per HPI. Absent: anxiety, depression, panic attacks - Endocrine: Present: As per HPI. Absent: cold intolerance, fatigue, heat intolerance, polydipsia, polyphagia - Hematologic/Lymphatic: Present: As per HPI. Absent: easy bleeding, easy bruising, lymphadenopathy Medical,Surgical,& Family Hx - Medical History Cardio: History of: Cardiac Dysrhythmia (atrial fib flutter with tachybradycardia syndrome; pacemaker placement), CHF (with preserved ejection fraction), Hypertension, Pacemaker Psychological: History of: Depression Neurology: History of: TIA Endocrine: History of: Diabetes Mellitus (NIDDM) Rheumatology: History of;: Psoriasis Respiratory: History of: Obstructive Sleep Apnea Renal: History of: Renal Problems (chronic renal insufficiency) Gastrointestinal: History of: Liver Problems (cirrhosis) Musculoskeletal: History of: Musculoskeletal Problems (WEAK IN LOWER EXTREMITIES ) Hematology: History of: Anemia (chronic disease and illness), Blood Transfusion Reaction (NO REACTION) - Surgical History Cardiac Surgeries: Sugical HX of: Internal Defibrillator (pacemaker) - Family History Family History: Reports;: Family Diabetes (MOTHER), Family Heart Disease, Family Hypertension (MOTHER), Family Psychiatric Problems (MOTHER) - Social History Smoking Status: Former smoker Frequency of Alcohol Use: Frequently Type of Drug Use: None Marital Status: Lives With:: Spouse Physical Examination Vital Signs Temp Pulse Resp BP Pulse Ox 98.4 F 99 H 20 87/64 100 06/15/16 15:57 06/15/16 15:57 06/15/16 15:57 06/15/16 15:57 06/15/16 15:57 Other: General appearance: Obese. No acute distress. - Head Head exam: Present: normal inspection, normocephalic, atraumatic. Absent: hematoma, laceration - Eye Eye exam: Present: EOMI. Absent: conjunctival injection, nystagmus, periorbital swelling, scleral icterus, laceration to eyelids Pupils: Present: PERRL. Absent: constricted, dilated, fixed, irregular, unequal - ENT ENT exam: Present: normal exam, normal external ear exam - Neck Neck exam: Present: normal inspection. Absent: lymphadenopathy, meningismus, tenderness, thyromegaly - Respiratory Respiratory exam: Present: clear to auscultation bilaterally, diminished breath sounds in bases. Absent: accessory muscle use, chest wall tenderness - Cardiovascular Cardiovascular exam: Present: Irregular rate and rhythm, tachycardia. Absent: carotid bruit, gallop, JVD, rubs, murmur - GI/Abdominal GI/Abdominal exam: Present: normal bowel sounds, distended, ascites. Absent: guarding, hernia, mass, rebound. - Extremities Exam Extremities exam: Present: normal inspection, normal capillary refill. Upper extremity pulses 2+. Lower extremity pulses 2+. Trace BLE edema. Absent: calf tenderness -Back Exam Back exam: Unable to assess due to habitus. Patient is restrained due to becoming physically aggressive with staff. - Neurological Exam Neurological exam: Present: obtunded, confused, arousable to verbal stimuli. will not follow commands - Psychiatric Psychiatric exam: Present: depressed, flat affect - Skin Skin exam: Present: normal color, warm, dry, intact. Absent: cyanosis, diaphoretic, rash, urticaria Result/EKG - Labs CBC & BMP: 07/14/16 05:34 07/14/16 05:34 Lab Results: I have reviewed the past 24 hour labs Labs: Laboratory Results - last 24 hr 07/13/16 07/14/16 07/14/16 17:47 01:23 05:34 WBC 14.4 H RBC 2.90 L Hgb 9.3 L Hct 28.6 L MCV 98.6 MCH 32 MCHC 32.5 RDW 17.9 H Plt Count 204 MPV 12.0 Neut % (Auto) 67.8 Lymph % (Auto) 11.3 L Mower % (Auto) 15.7 H Eos % (Auto) 3.3 Baso % (Auto) 0.2 Neut # (Auto) 9.7 H Lymph # (Auto) 1.6 Mower # (Auto) 2.3 H Eos # (Auto) 0.5 Baso # (Auto) 0.0 Total Counted 100 Immature Gran % 1.7 Nucleated RBC % 0.0 Immature Gran # 0.25 Segmented Neutrophils 67 Band Neutrophils 1 Lymphocytes 16 L Monocytes 13 Eosinophils 3 Nucleated RBCs # 0.00 Platelet Estimate Normal Hypochromasia 1+ Macrocytosis Slight Sodium Potassium Chloride Carbon Dioxide Anion Gap BUN Creatinine GFR Calculation BUN/Creatinine Ratio Glucose POC Glucose 153 H 149 H Calculated Osmolality Calcium 07/14/16 07/14/16 05:34 11:38 WBC RBC Hgb Hct MCV MCH MCHC RDW Plt Count MPV Neut % (Auto) Lymph % (Auto) Mower % (Auto) Eos % (Auto) Baso % (Auto) Neut # (Auto) Lymph # (Auto) Mower # (Auto) Eos # (Auto) Baso # (Auto) Total Counted Immature Gran % Nucleated RBC % Immature Gran # Segmented Neutrophils Band Neutrophils Lymphocytes Monocytes Eosinophils Nucleated RBCs # Platelet Estimate Hypochromasia Macrocytosis Sodium 147 H Potassium 5.0 Chloride 110 H Carbon Dioxide 25 Anion Gap 17.0 H BUN 115 H Creatinine 1.90 H GFR Calculation 47 BUN/Creatinine Ratio 60.00 H Glucose 143 H POC Glucose 180 H Calculated Osmolality 330.4 H Calcium 11.2 H - EKG EKG results: interpreted by me EKG shows: atrial fibrillation (with rapid ventricular response) Quality Measures - VTE Contraindication to Pharmacological VTE Prophylaxis: Active Bleeding <Carlos Butcher - Last Filed: 07/14/16 16:55> Assessment and Plan (1) Atrial flutter with rapid ventricular response Status: Acute Current Visit: Yes (2) Hypertension Status: Chronic Current Visit: No (3) CHF (congestive heart failure) Status: Acute Current Visit: No Qualifiers: Congestive heart failure type: systolic Congestive heart failure chronicity : acute on chronic Qualified Code(s): I50.23 - Acute on chronic systolic ( congestive) heart failure (4) Failure to thrive Status: Chronic Current Visit: Yes Qualifiers: Failure to thrive age range: in adult Qualified Code(s): R62.7 - Adult failure to thrive (5) Paroxysmal atrial fibrillation Status: Chronic Current Visit: Yes (6) Obstructive sleep apnea Problem details: refusing his mask Status: Chronic Current Visit: Yes (7) Acute pancreatitis Status: Resolved Current Visit: Yes Qualifiers: Pancreatitis type: alcohol induced (8) Alcoholic cirrhosis Status: Chronic Current Visit: Yes (9) Alcohol abuse Status: Chronic Current Visit: Yes (10) Hypotension Status: Resolved Current Visit: Yes Qualifiers: Hypotension type: orthostatic hypotension Qualified Code(s): I95.1 - Orthostatic hypotension History of Present Illness - Consult Narrative History of present illness: The patient was examined and chart hypertrophy. He is unable to give any history in that he is obtunded as a DNR. I reviewed this case with Risa Hannon ENAMEL DIPPER. I agree with the assessment and evaluation plan. In summation and addition Mr. Tracy is a 60 year old male who has had a prolonged ICU course for multiple medical problems. From a cardiac standpoint he has recurrent paroxysmal atrial fibrillation. Initially been on amiodarone and then recently sotalol but this was stopped because of adverse side effects. The patient now is back in atrial fibrillation with RVR and is on diltiazem. His blood pressure limits medications he can be used to manage his rate control. His echocardiogram is revealed normal left ventricular function. We will use IV digoxin in an attempted help manage his heart rates. We will need to monitor his digit level especially with his renal insufficiency. CC: Yair Boone MD Physical Examination Vital Signs Temp Pulse Resp BP Pulse Ox 98.4 F 99 H 20 87/64 100 06/15/16 15:57 06/15/16 15:57 06/15/16 15:57 06/15/16 15:57 06/15/16 15:57 Result/EKG - Labs CBC & BMP: 07/14/16 05:34 07/14/16 05:34 Labs: Laboratory Results - last 24 hr 07/13/16 07/14/16 07/14/16 17:47 01:23 05:34 WBC 14.4 H RBC 2.90 L Hgb 9.3 L Hct 28.6 L MCV 98.6 MCH 32 MCHC 32.5 RDW 17.9 H Plt Count 204 MPV 12.0 Neut % (Auto) 67.8 Lymph % (Auto) 11.3 L Mower % (Auto) 15.7 H Eos % (Auto) 3.3 Baso % (Auto) 0.2 Neut # (Auto) 9.7 H Lymph # (Auto) 1.6 Mower # (Auto) 2.3 H Eos # (Auto) 0.5 Baso # (Auto) 0.0 Total Counted 100 Immature Gran % 1.7 Nucleated RBC % 0.0 Immature Gran # 0.25 Segmented Neutrophils 67 Band Neutrophils 1 Lymphocytes 16 L Monocytes 13 Eosinophils 3 Nucleated RBCs # 0.00 Platelet Estimate Normal Hypochromasia 1+ Macrocytosis Slight Sodium Potassium Chloride Carbon Dioxide Anion Gap BUN Creatinine GFR Calculation BUN/Creatinine Ratio Glucose POC Glucose 153 H 149 H Calculated Osmolality Calcium 07/14/16 07/14/16 05:34 11:38 WBC RBC Hgb Hct MCV MCH MCHC RDW Plt Count MPV Neut % (Auto) Lymph % (Auto) Mower % (Auto) Eos % (Auto) Baso % (Auto) Neut # (Auto) Lymph # (Auto) Mower # (Auto) Eos # (Auto) Baso # (Auto) Total Counted Immature Gran % Nucleated RBC % Immature Gran # Segmented Neutrophils Band Neutrophils Lymphocytes Monocytes Eosinophils Nucleated RBCs # Platelet Estimate Hypochromasia Macrocytosis Sodium 147 H Potassium 5.0 Chloride 110 H Carbon Dioxide 25 Anion Gap 17.0 H BUN 115 H Creatinine 1.90 H GFR Calculation 47 BUN/Creatinine Ratio 60.00 H Glucose 143 H POC Glucose 180 H Calculated Osmolality 330.4 H Calcium 11.2 H
[2016-07-14] MEDS: DIGOXIN 0.5 MG/2 ML AMP IV SCH ×2 (16:50→23:24)
[2016-07-15] MEDS: DILTIAZEM 30 MG TABLET PO SCH ×8 (00:32→23:43)
[2016-07-15] MEDS: FAMOTIDINE 20 MG/2 ML VIAL IV SCH (00:33)
[2016-07-15] MEDS: METOCLOPRAMIDE 10 MG/2 ML VIAL IV SCH ×2 (00:33→06:02)
[2016-07-15] MEDS: INSULIN REGULAR 100 UNIT/ML SUBCUT SCH ×5 (00:33→23:43)
[2016-07-15] MEDS: LEVALBUTEROL 1.25 MG/3 ML NEB RESP TX SCH ×4 (01:14→20:12)
[2016-07-15] MEDS: ERYTHROMYCIN IV SCH ×3 (02:00→18:32)
[2016-07-15] MEDS: SODIUM CHLORIDE 0.9% IV SCH ×3 (02:00→18:32)
[2016-07-15] MEDS: DIGOXIN 0.5 MG/2 ML AMP IV SCH ×2 (05:13→09:57)
[2016-07-15] MEDS: ALBUMIN 25% 25 GM in PREMIX 1 EACH IV SCH (05:14)
[2016-07-15 05:31] LABS: Basophils % 0.2 % (0.0-0.8); Eosinophils # 0.5 10*3/uL (0.0-0.87); Eosinophils % 2.9 % (0.00-10.9); Hemoglobin 9.5 GM/DL (14.0-18.0); Immature Granulocytes % 1.3 %; Immature Granulocytes Absolute 0.21 #; Lymphocytes # 1.6 10*3/uL (1.4-4.0); Mean Corpuscular HGB Conc 31.7 GM/DL (32-36); Mean Corpuscular Hemoglobin 31 PG (27-34); Mean Platelet Volume 12.9 FL (9.6-12.0); Monocytes # 2.6 10*3/uL (0.11-0.8); Monocytes % 16.1 % (1.7-12.7); Neutrophils # 11.3 10*3/uL (1.4-7.4); Neutrophils % 69.5 % (38.7-73.9); Platelet Count 193 T/CUMM (130-400); Red Blood Count 3.03 MC/CUMM (3.8-5.5); Red Cell Distribution Width 17.9 % (9.3-17.3); White Blood Count 16.2 T/CUMM (4-12)
[2016-07-15 05:57] LABS: Band Neutrophils 2 % (0-10); Eosinophils 2 % (0-10); Hypochromasia 1+; Lymphocytes 7 % (20-55); Nucleated Red Blood Cells 1 (0-5); Ovalocytes Slight; Platelet Estimate Normal; Segmented Neutrophils 72 % (50-85); Total Cells Counted 100
[2016-07-15 05:58] LABS: Macrocytosis Slight
[2016-07-15] MEDS: LEVOTHYROXINE 75 MCG TABLET PO SCH (06:02)
[2016-07-15 07:02] LABS: Calcium 11.7 MG/DL (8.5-10.1); Magnesium 2.9 MG/DL (1.8-2.4); Osmolality,Calculated 337.4 MOS/KG (273-304); Potassium 5.1 MMOL/L (3.5-5.1)
--- NOTE | 2016-07-15 07:11 | EKG Report ---
Stationary ECG Study [facility] Test Date: 07/15/2016 6:51:15 AM Pat Name: ISAC AYON Department: Room: 108 Gender: M Technician Anatomic Pathology: GRAYSON : 1955 Requested by: Risa Hannon Order Number: [id number] Reading MD: BOB CHACON Intervals [place] Rate: 107 P: 999 [place]: 0 QRS: 63 QRSD: 86 T: 240 QT: 206 QTc: 269 Interpretive Statements ATRIAL FIBRILLATION WITH RAPID VENTRICULAR RESPONSE At 107 bpm POSSIBLE RIGHT VENTRICULAR CONDUCTION DELAY Electronically Signed On 07-19-16 15:53:57 CDT by BOB CHACON [email or web address]
--- NOTE | 2016-07-15 07:58 | Pulmonology Progress Note ---
Pulmonary - PN: Subj Interval history: Patient is a 60-year-old white man that is in very poor condition with obesity and chronic liver disease and heart disease. He was having more respiratory distress yesterday and had to be intubated. He was on the ventilator for several days but yesterday he was extubated. He has been breathing fairly well but he does require some suctioning. Over the weekend he had some arrhythmias with atrial fibrillation but is back in sinus rhythm now. Yesterday he developed more respiratory distress and dropped his O2 saturations. He has continued to have trouble clearing his secretions. He ultimately had to be reintubated yesterday. He developed complete atelectasis of his right lung. We did do a therapeutic bronchoscopy and clear secretions. His chest x-ray has improved nicely. The patient has been doing reasonably well since he has been off the ventilator. He has not had much respiratory distress. He is still in atrial fibrillation. He arouses but does not follow commands. He has been tolerating tube feedings. Exam (Progress Note) - Constitutional Vitals: Period Temp Pulse Resp BP Sys/Mcbride Pulse Ox Last 24 Hr 96.8 F-98.3 F 103-142 18-28 87-145/53-100 96-99 Exam: General appearance: no distress (He is comfortable on low-flow oxygen but does grimace but is not alert. He does not have labored breathing. He is using CPAP.) - Head Head exam: Present: normal inspection, normocephalic - Eye Eye exam: Present: EOMI. Absent: scleral icterus Pupils: Present: KARLEE - ENT ENT exam: Present: other (Patient has a very narrow hypopharynx) he does have an NG tube in place. - Neck Neck exam: Present: other (Patient does have a large neck). Absent: lymphadenopathy, thyromegaly - Respiratory Respiratory exam: Present: He has fairly good air movement bilaterally with mild rhonchi but no significant wheezing. His lungs sound about the same. - Cardiovascular Cardiovascular exam: Present: His heart rate is irregularly irregular and fairly rapid now. - GI/Abdominal GI/Abdominal exam: Present: Hypoactive bowel sounds, soft, other (Abdomen is large). Absent: organomegaly, tenderness - Extremities Exam Extremities exam: Absent: calf tenderness, edema, he will move his extremities but is very weak. - Neurological Exam Neurological exam: Present: altered (Patient will grimace and moan but does not follow commands.) - Psychiatric Psychiatric exam: Present: He will open eyes but does not do anything to follow commands. - Skin Skin exam: Present: warm, dry Results - Labs CBC & BMP: 07/15/16 04:43 07/15/16 04:43 - Diagnostic Findings Procedure: Chest x-ray: image reviewed by me, report reviewed by me (Chest x- ray remains fairly clear.) Assessment and Plan (1) NICM (nonischemic cardiomyopathy) Problem details: improved EF per updated ECHO Status: Chronic Assessment and plan: The patient does have cardiomegaly and has had a component of heart failure that is better. He is not in heart failure now but does have atrial fibrillation. Current Visit: Yes (2) Paroxysmal atrial fibrillation Status: Chronic Assessment and plan: The patient is back in atrial fibrillation now and is back on a Cardizem infusion. Current Visit: Yes (3) Obstructive sleep apnea Problem details: refusing his mask Status: Chronic Assessment and plan: Patient is doing okay off the ventilator and he is using CPAP. Current Visit: Yes (4) Alcoholic cirrhosis Status: Chronic Assessment and plan: Patient does have improvement in his liver test and his bilirubin is down to 1.0. He is fairly calm and responsive now. His liver enzymes are better. He is still quite encephalopathic. He still does not follow commands Current Visit: Yes (5) Aspiration pneumonitis Status: Resolved Assessment and plan: Patient has marked improvement in his chest x-ray and his pneumonia is much better. Clinically his lungs have cleared up nicely. He is doing fairly well off the ventilator. Current Visit: Yes (6) Acute renal failure Status: Resolved Assessment and plan: His renal function is slightly better but he does have some chronic renal insufficiency with a creatinine of 1.9. Sodium is 147 and his BUN is up. He may be a little on the dry side. Current Visit: Yes
--- NOTE | 2016-07-15 08:15 | Cardiology Progress Note ---
<Risa Hannon E - Last Filed: 07/15/16 09:17> Assessment and Plan (1) Paroxysmal atrial fibrillation Status: Chronic Assessment and plan: SEE PLAN OF CARE LISTED BELOW. Current Visit: Yes (2) CHF (congestive heart failure) Status: Acute Assessment and plan: SEE PLAN OF CARE LISTED BELOW. Current Visit: No Qualifiers: Congestive heart failure type: systolic Congestive heart failure chronicity : acute on chronic Qualified Code(s): I50.23 - Acute on chronic systolic ( congestive) heart failure (3) Obstructive sleep apnea Problem details: refusing his mask Status: Chronic Assessment and plan: SEE PLAN OF CARE LISTED BELOW. Current Visit: Yes (4) Hypertension Status: Chronic Assessment and plan: SEE PLAN OF CARE LISTED BELOW. Current Visit: No (5) Obesity Status: Chronic Assessment and plan: SEE PLAN OF CARE LISTED BELOW. Current Visit: Yes (6) Alcohol abuse Status: Chronic Assessment and plan: SEE PLAN OF CARE LISTED BELOW. Current Visit: Yes (7) Failure to thrive Status: Chronic Assessment and plan: SEE PLAN OF CARE LISTED BELOW. Current Visit: Yes Qualifiers: Failure to thrive age range: in adult Qualified Code(s): R62.7 - Adult failure to thrive (8) Hypotension Status: Resolved Assessment and plan: SEE PLAN OF CARE LISTED BELOW. Current Visit: Yes Qualifiers: Hypotension type: orthostatic hypotension Qualified Code(s): I95.1 - Orthostatic hypotension Cardiology - PN: Subj Interval history: INPATIENT NURSING AIDE: DR. CONLEY (last seen in 2013) PCP: DR. BOONE Mr. Tracy is a 60 year old male who has not followed with Dr. Conley since 2013. He has a history of anxiety, atrial fibrillation, diabetes, hypertension, psoriasis, tachybradycardia syndrome status post dual-chamber pacemaker placement, obstructive sleep apnea (noncompliant), hyperlipidemia, EtOH abuse. Risk factors are significant for: Diabetes, hyperlipidemia, hypertension, obesity, sedentary lifestyle. He was admitted to the hospital on June 15, 2016 and found to have pancreatitis , liver failure, and hepatorenal syndrome. He has been seen by gastroenterology , sleep medicine, nephrology. He required intubation for several days and has been extubated and is now on O2 via facemask. He has been minimally responsive and neurology has been following his encephalopathy. He is now arousable to verbal stimuli but will not follow commands. We were initially consulted to see him due to refractory tachycardia. We followed him and treated his atrial flutter w/ RVR for several days. He was being maintained on PO Cardizem in addition to Vitamin C and electrolyte replacement therapy and we subsequently signed off on 07/09/16. On 07/14/16, he went back into atrial fibrillation with rapid ventricular response and we were reconsulted. He was placed back on IV Cardizem and we are attempting to adjust medications to improve his heart rate. See plan of care below. Overall, Mr. Tracy has a very poor prognosis. Dr. Butcher to follow with further plan and addendum. ASSESSMENT/PLAN: 1. PAROXYSMAL ATRIAL FIBRILLATION - Now in AF w/ RVR. Currently on IV Cardizem. Sotalol stopped due to VT/torsades. He has been unable to tolerate beta shantelle due to intermittent hypotension but overall BPs are much improved. We may try a dose of IV labetalol today to see if he will tolerate it. Has been loaded with Digoxin and is now receiving this per NG daily. Heart rates are very mildly improved with lowest rates in the 90s but still having rates up to 140s. He was previously on aspirin and Eliquis for stroke prevention. These are being held due to his profound anemia. He has required transfusion of 5 units PRBCs this admission, last transfusion on 06/21/2016. He has been started on Lovenox for DVT prophylaxis and stroke protection. 2. CHF - Echocardiogram 06/16/16 revealed EF 60%, grade I/IV diastolic dysfunction. Probably due to volume issues and his other underlying problems. 3. OBSTRUCTIVE SLEEP APNEA - He has previously been noncompliant with CPAP and refused to wear his mask. Complicates his overall issues. Has been ventilated and now extubated and on O2 via facemask. 4. HYPERTENSION - Blood pressures have been up and down and are currently well controlled. No longer requiring vasopressor support. Will continue to monitor. 5. OBESITY 6. ALCOHOL ABUSE - Per Dr. Garcia's notes, the patient's would like for him to go to a treatment center when he is medically stable; however, he may require transfer to [facility] and/or skilled nursing for residential care. His prognosis is very poor. This complicates his overall issues. 7. FAILURE TO THRIVE - This is secondary to multiple medical issues and problems. 8. HYPOTENSION - His hypotension is complicated by his multiple medical problems. He is no longer requiring vasopressor support and is on IV Cardizem for his AF w/ RVR. He is not able to tolerate beta blockers due to his intermittent low blood pressures and will subsequently be tried on digoxin. Will continue to monitor. Exam (Progress Note) - Constitutional Vitals: Period Temp Pulse Resp BP Sys/Mcbride Pulse Ox Last 24 Hr 96.8 F-98.3 F 103-142 18-28 87-145/53-100 96-99 Exam: General appearance: On BiPAP. Obese. no acute distress. - Head Head exam: Present: normal inspection, normocephalic, atraumatic. Absent: hematoma, laceration - Eye Eye exam: Present: EOMI. Absent: conjunctival injection, nystagmus, periorbital swelling, scleral icterus, laceration to eyelids Pupils: Present: PERRL. Absent: constricted, dilated, fixed, irregular, unequal - ENT ENT exam: Present: normal external ear exam. NG tube in place with tube feedings. - Neck Neck exam: Present: normal inspection. Absent: lymphadenopathy, meningismus, tenderness, thyromegaly - Respiratory Respiratory exam: Present: Rhonchorous breath sounds. Extubated 06/29/16. Absent : accessory muscle use - Cardiovascular Cardiovascular exam: Present: Irregular rate and rhythm, atrial pacing per nurse monitoring with well controlled rate. Absent: gallop, JVD, rubs, murmur - GI/Abdominal GI/Abdominal exam: Present: normal bowel sounds, soft. Absent: distended, firm , guarding, hernia, mass, tenderness, rebound. - Extremities Exam Extremities exam: Present: normal inspection, normal capillary refill. Upper extremity pulses 2+. Lower extremity pulses diminished. Trace bilateral lower extremity edema. Absent: calf tenderness - Back Exam Back exam: Present: Unable to examine due to habitus. Extubated 06/29/16. Patient remains obtunded. - Neurological Exam Neurological exam: Present: Arousable to verbal stimuli. Does not follow commands. No resting or essential tremor. - Skin Skin exam: Present: normal color, warm, dry, intact. Absent: cyanosis, diaphoretic, rash, urticaria Result/EKG - Labs CBC & BMP: 07/15/16 04:43 07/15/16 04:43 Lab Results: I have reviewed the past 24 hour labs Labs: Laboratory Results - last 24 hr 07/14/16 07/14/16 07/15/16 11:38 17:44 00:28 WBC RBC Hgb Hct MCV MCH MCHC RDW Plt Count MPV Neut % (Auto) Lymph % (Auto) [place] % (Auto) Eos % (Auto) Baso % (Auto) Neut # (Auto) Lymph # (Auto) [place] # (Auto) Eos # (Auto) Baso # (Auto) Total Counted Immature Gran % Nucleated RBC % Immature Gran # Segmented Neutrophils Band Neutrophils Lymphocytes Monocytes Eosinophils Nucleated RBCs Nucleated RBCs # Platelet Estimate Hypochromasia Macrocytosis Ovalocytes Morphology Comment Sodium Potassium Chloride Carbon Dioxide Anion Gap BUN Creatinine GFR Calculation BUN/Creatinine Ratio Glucose POC Glucose 180 H 168 H 158 H Calculated Osmolality Calcium Magnesium 07/15/16 07/15/16 07/15/16 04:43 04:43 05:44 WBC 16.2 H RBC 3.03 L Hgb 9.5 L Hct 30.0 L MCV 99.0 MCH 31 MCHC 31.7 L RDW 17.9 H Plt Count 193 MPV 12.9 H Neut % (Auto) 69.5 Lymph % (Auto) 10.0 L [place] % (Auto) 16.1 H Eos % (Auto) 2.9 Baso % (Auto) 0.2 Neut # (Auto) 11.3 H Lymph # (Auto) 1.6 [place] # (Auto) 2.6 H Eos # (Auto) 0.5 Baso # (Auto) 0.0 Total Counted 100 Immature Gran % 1.3 Nucleated RBC % 0.0 Immature Gran # 0.21 Segmented Neutrophils 72 Band Neutrophils 2 Lymphocytes 7 L Monocytes 17 H Eosinophils 2 Nucleated RBCs 1 Nucleated RBCs # 0.00 Platelet Estimate Normal Hypochromasia 1+ Macrocytosis Slight Ovalocytes Slight Morphology Comment Sodium 147 H Potassium 5.1 Chloride 113 H Carbon Dioxide 23 Anion Gap 16.1 H BUN 135 H D Creatinine 1.90 H GFR Calculation 47 BUN/Creatinine Ratio 71.00 H Glucose 142 H POC Glucose 165 H Calculated Osmolality 337.4 H Calcium 11.7 H Magnesium 2.9 H - EKG EKG results: interpreted by me EKG shows: atrial fibrillation Quality Measures - VTE Contraindication to Pharmacological VTE Prophylaxis: Active Bleeding <Carlos Butcher - Last Filed: 07/15/16 09:33> Assessment and Plan (1) Atrial flutter with rapid ventricular response Status: Acute Current Visit: Yes (2) Hypertension Status: Chronic Current Visit: No (3) CHF (congestive heart failure) Status: Acute Current Visit: No Qualifiers: Congestive heart failure type: systolic Congestive heart failure chronicity : acute on chronic Qualified Code(s): I50.23 - Acute on chronic systolic ( congestive) heart failure (4) Failure to thrive Status: Chronic Current Visit: Yes Qualifiers: Failure to thrive age range: in adult Qualified Code(s): R62.7 - Adult failure to thrive (5) Paroxysmal atrial fibrillation Status: Chronic Current Visit: Yes (6) Obstructive sleep apnea Problem details: refusing his mask Status: Chronic Current Visit: Yes (7) Acute pancreatitis Status: Resolved Current Visit: Yes Qualifiers: Pancreatitis type: alcohol induced (8) Alcoholic cirrhosis Status: Chronic Current Visit: Yes (9) Alcohol abuse Status: Chronic Current Visit: Yes (10) Hypotension Status: Resolved Current Visit: Yes Qualifiers: Hypotension type: orthostatic hypotension Qualified Code(s): I95.1 - Orthostatic hypotension Cardiology - PN: Subj Interval history: Patient personally examined and chart reviewed. Discuss his case with Risa Hannon ACCOUNTING SUPERVISOR and I agree with the evaluation and assessment and plan. In addition summation his blood pressures are generally doing better. His heart rates or overall better with digoxin. With his blood pressures better I think we can and some oral diltiazem per feeding tube and see how he responds to this. We will titrate his accord his blood pressures and heart rates. We will check a digoxin level Tuesday morning. Exam (Progress Note) - Constitutional Vitals: Period Temp Pulse Resp BP Sys/Mcbride Pulse Ox Last 24 Hr 96.8 F-98.3 F 90-142 18-28 87-145/53-100 96-99 Result/EKG - Labs CBC & BMP: 07/15/16 04:43 07/15/16 04:43 Labs: Laboratory Results - last 24 hr 07/14/16 07/14/16 07/15/16 11:38 17:44 00:28 WBC RBC Hgb Hct MCV MCH MCHC RDW Plt Count MPV Neut % (Auto) Lymph % (Auto) [place] % (Auto) Eos % (Auto) Baso % (Auto) Neut # (Auto) Lymph # (Auto) [place] # (Auto) Eos # (Auto) Baso # (Auto) Total Counted Immature Gran % Nucleated RBC % Immature Gran # Segmented Neutrophils Band Neutrophils Lymphocytes Monocytes Eosinophils Nucleated RBCs Nucleated RBCs # Platelet Estimate Hypochromasia Macrocytosis Ovalocytes Morphology Comment Sodium Potassium Chloride Carbon Dioxide Anion Gap BUN Creatinine GFR Calculation BUN/Creatinine Ratio Glucose POC Glucose 180 H 168 H 158 H Calculated Osmolality Calcium Magnesium 07/15/16 07/15/16 07/15/16 04:43 04:43 05:44 WBC 16.2 H RBC 3.03 L Hgb 9.5 L Hct 30.0 L MCV 99.0 MCH 31 MCHC 31.7 L RDW 17.9 H Plt Count 193 MPV 12.9 H Neut % (Auto) 69.5 Lymph % (Auto) 10.0 L [place] % (Auto) 16.1 H Eos % (Auto) 2.9 Baso % (Auto) 0.2 Neut # (Auto) 11.3 H Lymph # (Auto) 1.6 [place] # (Auto) 2.6 H Eos # (Auto) 0.5 Baso # (Auto) 0.0 Total Counted 100 Immature Gran % 1.3 Nucleated RBC % 0.0 Immature Gran # 0.21 Segmented Neutrophils 72 Band Neutrophils 2 Lymphocytes 7 L Monocytes 17 H Eosinophils 2 Nucleated RBCs 1 Nucleated RBCs # 0.00 Platelet Estimate Normal Hypochromasia 1+ Macrocytosis Slight Ovalocytes Slight Morphology Comment Sodium 147 H Potassium 5.1 Chloride 113 H Carbon Dioxide 23 Anion Gap 16.1 H BUN 135 H D Creatinine 1.90 H GFR Calculation 47 BUN/Creatinine Ratio 71.00 H Glucose 142 H POC Glucose 165 H Calculated Osmolality 337.4 H Calcium 11.7 H Magnesium 2.9 H
[2016-07-15] MEDS: THIAMINE 200 MG/2 ML VIAL IV SCH (08:19)
[2016-07-15] MEDS: PANTOPRAZOLE 40 MG VIAL IV SCH (08:19)
[2016-07-15] MEDS: POTASSIUM CHLORIDE 20 MEQ/15 ML UDCUP NG SCH (08:19)
[2016-07-15] MEDS: ASCORBIC ACID 500 MG TABLET PO SCH (08:19)
[2016-07-15] MEDS: MEGESTROL 400 MG/10 ML UDCUP PO SCH (08:19)
[2016-07-15] MEDS: MIDODRINE 5 MG TABLET PO SCH ×3 (08:20→22:09)
[2016-07-15] MEDS: LACTULOSE 20 GM/30 ML UDCUP PO SCH ×2 (08:20→22:08)
[2016-07-15] MEDS: NYSTATIN CREAM 15 GM TUBE TOP SCH ×2 (08:27→22:08)
[2016-07-15] MEDS: DESITIN 4OZ/NYSTATIN 15 GRAM MIXTURE PASTE TOP SCH ×2 (08:27→22:09)
[2016-07-15] MEDS: SODIUM CHLORIDE 0.45% 1,000 ML IV SCH ×2 (08:27→22:26)
--- NOTE | 2016-07-15 09:10 | XRay Report ---
XR chest 1V portable Indication: Follow-up on respiratory failure Comparison: Chest x-ray July 12, 2016 Technique: Single frontal view of the chest Findings: Right-sided PICC line appears grossly unchanged. Interval extubation. Cardiomediastinal silhouette is stable in configuration. Heart remains prominent. Cardiac pacemaker apparatus again noted. Mildly progressed right basilar atelectasis. Osseous and surrounding soft tissue structures appear grossly unchanged. IMPRESSION: Interval extubation. Mildly progressed right basilar atelectasis. Continued cardiomegaly. PROCEDURE INTERPRETED AT [facility] Final Report Signed by: Dr Sergo Tai
--- NOTE | 2016-07-15 09:55 | Internal Med Progress Note ---
Assessment and Plan (1) Respiratory failure Status: Acute Assessment and plan: 60-year-old male admitted to acute care * Respiratory failure. Patient is still having difficulty with secretions. * Pancreatitis. Better * Encephalopathy. He continues to be lethargic. Will DC Reglan. Will also DC Megace * Atrial flutter. Still in A. fib * Acute renal failure. Hypercalcemia. Will reconsult Dr. Gasca. Will DC vitamin C * Patient is DNR * No family is present. Current Visit: Yes (2) Obstructive sleep apnea Problem details: refusing his mask Status: Chronic Current Visit: Yes (3) Acute pancreatitis Status: Resolved Current Visit: Yes Qualifiers: Pancreatitis type: alcohol induced (4) Aspiration pneumonitis Status: Resolved Current Visit: Yes (5) CHF (congestive heart failure) Status: Acute Current Visit: No Qualifiers: Congestive heart failure type: systolic Congestive heart failure chronicity : acute on chronic Qualified Code(s): I50.23 - Acute on chronic systolic ( congestive) heart failure (6) Atrial flutter Status: Resolved Current Visit: No Internal Medicine - PN: Subj Interval history: Patient is poorly responsive. He is on CPAP at night. He is not following any commands Exam (Progress Note) - Constitutional Vitals: Period Temp Pulse Resp BP Sys/Mcbride Pulse Ox Last 24 Hr 96.8 F-98.3 F 90-142 18-28 87-145/53-100 96-99 Exam: Examination: GENERAL: NAD. NECK: Neck is supple. CVS: Rhythm is irregularly irregular and tachycardia RESPIRATORY: Lungs are clear. Few rales at bases ABDOMEN: Soft and nontender. EXT: No edema. TECHNICAL SALES SUPPORT SPECIALIST: Patient appears poorly responsive SKIN: Warm and dry. Results - Labs CBC & BMP: 07/15/16 04:43 07/15/16 04:43 Lab Results: I have reviewed the past 24 hour labs Quality Measures - VTE Contraindication to Pharmacological VTE Prophylaxis: Active Bleeding
[2016-07-15 10:22] LABS: Free T4 (Free Thyroxine) 1.44 NG/DL (0.76-1.46); Thyroid Stimulating Hormone 3.78 uIU/ml (0.358-3.74); Total Protein 8.1 G/DL (6.4-8.3)
--- NOTE | 2016-07-15 11:34 | Nephrology Consult Note ---
History of Present Illness Chief complaint: ARF/hypercalcemia History of present illness: Mr. Tracy is a 60 year old male whom I saw in June for acute renal failure. He was volume depleted and hypotensive at that time. Creatinine improved from 3.4-1.0 with treatment. Creatinine stayed between 1 and 1.4 through the end of June. On 07/05/2016 it was 1.6. It ayan over the next several days and he has developed hypercalcemia. He required intubation on 06/23/2016 and was extubated on 2016. He required reintubation from 07/05/2016 3 07/12/2016. Fluid balance has been negative. He is confused and does not answer questions. Home Medications Medication Instructions Recorded Confirmed Type Apixaban [Eliquis] 5 mg PO BID #60 tablet 12/18/15 06/15/16 Rx Aspirin Chew Tab 81 mg PO DAILY tablet 12/18/15 06/15/16 Rx Diltiazem Cd Cap [Cardizem CD] 180 mg PO DAILY #30 capsule 12/18/15 06/15/16 Rx Furosemide Tab [Lasix Tab] 40 mg PO BID DIURETIC #60 tablet 12/18/15 06/15/16 Rx Losartan [Cozaar] 25 mg PO DAILY #30 tablet 12/18/15 06/15/16 Rx Magnesium Oxide 800 mg PO BID #60 tablet 12/18/15 06/15/16 Rx Nitroglycerin Sl Tab [Nitrostat] 0.4 mg SL Q5M PRN #30 tablet 12/18/15 06/15/16 Rx Sotalol [Betapace] 80 mg PO BID #60 tablet 12/18/15 06/15/16 Rx Spironolactone [Aldactone] 50 mg PO DAILY #30 tablet 12/18/15 06/15/16 Rx Furosemide [Lasix] 40 mg PO BID 06/15/16 06/15/16 History Levothyroxine Tab [Synthroid Tab] 75 mcg PO DAILY@0700 06/15/16 06/15/16 History Potassium Chloride 20 meq PO BID 06/15/16 06/15/16 History Allergies Allergy/AdvReac Type Severity Reaction Status Date / Time lorazepam [From Ativan] AdvReac Severe Anxiety Verified 06/16/16 19:31 Medical,Surgical,& Family Hx - Medical History Cardio: History of: Cardiac Dysrhythmia (atrial fib flutter with tachybradycardia syndrome; pacemaker placement), CHF (with preserved ejection fraction), Hypertension, Pacemaker Psychological: History of: Depression Neurology: History of: TIA Endocrine: History of: Diabetes Mellitus (NIDDM) Rheumatology: History of;: Psoriasis Respiratory: History of: Obstructive Sleep Apnea Renal: History of: Renal Problems (chronic renal insufficiency) Gastrointestinal: History of: Liver Problems (cirrhosis) Musculoskeletal: History of: Musculoskeletal Problems (WEAK IN LOWER EXTREMITIES ) Hematology: History of: Anemia (chronic disease and illness), Blood Transfusion Reaction (NO REACTION) - Surgical History Cardiac Surgeries: Sugical HX of: Internal Defibrillator (pacemaker) - Family History Family History: Reports;: Family Diabetes (MOTHER), Family Heart Disease, Family Hypertension (MOTHER), Family Psychiatric Problems (MOTHER) - Social History Smoking Status: Former smoker Frequency of Alcohol Use: Frequently Type of Drug Use: None Review of Systems ROS unobtainable: due to mental status Exam - Vital Signs Vital signs: Period Temp Pulse Resp BP Sys/Mcbride Pulse Ox Last 24 Hr 96.8 F-98.3 F 72-142 18-28 94-145/53-100 96-99 Exam: Gen.: Confused. Does not follow commands ENT: Pupils equal round reactive to light. Neck: Supple. No JVD or bruit. Cardiovascular: Regular rate and rhythm. No murmur rub or gallop Lungs: No rales or wheezes Abdomen: Soft. Nontender. Positive bowel sounds. No organomegaly Extremities: No edema Results - Labs CBC & BMP: 07/15/16 04:43 07/15/16 04:43 Assessment and Plan (1) Acute renal failure Status: Resolved Assessment and plan: 60-year-old man admitted with: * ARF. He appears to be volume depleted. Recent fluid balance has been negative. Serum osmolality and serum sodium are elevated. I agree with IV fluid. Blood pressure has been low on a few occasions during the past 48 hours * Hypercalcemia. He has been on no supplements. IV fluids should help. This may be aggravated by immobility. * Anemia. * Chronic liver disease * History of hypertension * Paroxysmal A. fib * Cardiomyopathy * Ethanol abuse * Peptic ulcer disease Current Visit: Yes (2) Anemia Status: Chronic Current Visit: Yes (3) Hypotension Status: Resolved Current Visit: Yes Qualifiers: Hypotension type: orthostatic hypotension Qualified Code(s): I95.1 - Orthostatic hypotension (4) Obstructive sleep apnea Problem details: refusing his mask Status: Chronic Current Visit: Yes (5) Alcohol abuse Status: Chronic Current Visit: Yes (6) Ascites Status: Chronic Current Visit: Yes Qualifiers: Ascites type: due to alcoholic cirrhosis Qualified Code(s): K70.31 - Alcoholic cirrhosis of liver with ascites (7) NICM (nonischemic cardiomyopathy) Problem details: improved EF per updated ECHO Status: Chronic Current Visit : Yes (8) Paroxysmal atrial fibrillation Status: Chronic Current Visit: Yes
[2016-07-15] MEDS: DIGOXIN 0.125 MG TABLET PO SCH (13:38)
[2016-07-15] MEDS: ENOXAPARIN 40 MG/0.4 ML SYRINGE SUBCUT SCH (13:38)
[2016-07-16] MEDS: FAMOTIDINE 20 MG/2 ML VIAL IV SCH (01:20)
[2016-07-16] MEDS: SODIUM CHLORIDE 0.9% IV SCH ×3 (01:21→16:59)
[2016-07-16] MEDS: ERYTHROMYCIN IV SCH ×3 (01:21→16:59)
[2016-07-16] MEDS: LEVALBUTEROL 1.25 MG/3 ML NEB RESP TX SCH ×4 (01:39→19:41)
[2016-07-16 04:56] LABS: Basophils # 0.1 10*3/uL (0.0-0.2); Basophils % 0.4 % (0.0-0.8); Eosinophils # 0.6 10*3/uL (0.0-0.87); Eosinophils % 3.6 % (0.00-10.9); Hematocrit 29.9 VOL% (42.0-52.0); Hemoglobin 9.6 GM/DL (14.0-18.0); Immature Granulocytes % 1.4 %; Immature Granulocytes Absolute 0.22 #; Lymphocytes # 1.7 10*3/uL (1.4-4.0); Lymphocytes % 11.2 % (21.2-54.2); Mean Corpuscular HGB Conc 32.1 GM/DL (32-36); Mean Corpuscular Hemoglobin 32 PG (27-34); Mean Corpuscular Volume 99.3 FL (87-102); Mean Platelet Volume 13.2 FL (9.6-12.0); Monocytes # 1.9 10*3/uL (0.11-0.8); Monocytes % 12.2 % (1.7-12.7); Neutrophils # 10.9 10*3/uL (1.4-7.4); Neutrophils % 71.2 % (38.7-73.9); Platelet Count 192 T/CUMM (130-400); Red Blood Count 3.01 MC/CUMM (3.8-5.5); Red Cell Distribution Width 17.5 % (9.3-17.3); White Blood Count 15.4 T/CUMM (4-12)
[2016-07-16 05:28] LABS: Calcium 10.7 MG/DL (8.5-10.1); Magnesium 2.7 MG/DL (1.8-2.4); Osmolality,Calculated 338.3 MOS/KG (273-304); Potassium 5.3 MMOL/L (3.5-5.1)
[2016-07-16] MEDS: INSULIN REGULAR 100 UNIT/ML SUBCUT SCH ×3 (05:29→18:26)
[2016-07-16] MEDS: DILTIAZEM 30 MG TABLET PO SCH ×5 (05:29→21:34)
[2016-07-16] MEDS: METOPROLOL TARTRATE 5 MG/5 ML VIAL IV PRN (05:30)
[2016-07-16 05:46] LABS: Albumin 5.8 G/DL (3.4-5.0); Bilirubin,Total 0.9 MG/DL (0.2-1.0); Calcium 10.9 MG/DL (8.5-10.1); Osmolality,Calculated 339.1 MOS/KG (273-304); Potassium 5.3 MMOL/L (3.5-5.1); Total Protein 7.9 G/DL (6.4-8.3)
[2016-07-16] MEDS: LEVOTHYROXINE 75 MCG TABLET PO SCH (06:27)
--- NOTE | 2016-07-16 07:17 | EKG Report ---
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
--- NOTE | 2016-07-16 07:56 | Pulmonology Progress Note ---
Pulmonary - PN: Subj Interval history: Patient is a 60-year-old white man that is in very poor condition with obesity and chronic liver disease and heart disease. He was having more respiratory distress yesterday and had to be intubated. He was on the ventilator for several days but yesterday he was extubated. He has been breathing fairly well but he does require some suctioning. Over the weekend he had some arrhythmias with atrial fibrillation but is back in sinus rhythm now. Yesterday he developed more respiratory distress and dropped his O2 saturations. He has continued to have trouble clearing his secretions. He ultimately had to be reintubated yesterday. He developed complete atelectasis of his right lung. We did do a therapeutic bronchoscopy and clear secretions. His chest x-ray has improved nicely. The patient has been doing reasonably well since he has been off the ventilator. He has not had much respiratory distress. He looks like he has a paced rhythm now. He still does not follow commands. His lab work looks a little better today. Overall he is about the same. Exam (Progress Note) - Constitutional Vitals: Period Temp Pulse Resp BP Sys/Mcbride Pulse Ox Last 24 Hr 98.1 F-98.9 F 68-134 16-27 90-164/48-100 93-100 Exam: General appearance: no distress (He is comfortable on low-flow oxygen but does grimace but is not alert. He does not have labored breathing. He is using CPAP. He has not had much change.) - Head Head exam: Present: normal inspection, normocephalic - Eye Eye exam: Present: EOMI. Absent: scleral icterus Pupils: Present: KARLEE - ENT ENT exam: Present: other (Patient has a very narrow hypopharynx) he does have an NG tube in place. - Neck Neck exam: Present: other (Patient does have a large neck). Absent: lymphadenopathy, thyromegaly - Respiratory Respiratory exam: Present: He has fairly good air movement bilaterally seems to be moving air okay with only minimal rhonchi. - Cardiovascular Cardiovascular exam: Present: His heart rate is fairly regular and paced at the present time. He has no loud murmur or gallop. - GI/Abdominal GI/Abdominal exam: Present: Hypoactive bowel sounds, soft, other (Abdomen is large). Absent: organomegaly, tenderness - Extremities Exam Extremities exam: Absent: calf tenderness, edema, he will move his extremities but is very weak. - Neurological Exam Neurological exam: Present: altered (Patient will grimace and moan but does not follow commands.) - Psychiatric Psychiatric exam: Present: He will open eyes but does not do anything to follow commands. - Skin Skin exam: Present: warm, dry Results - Labs CBC & BMP: 07/16/16 03:48 07/16/16 03:48 Assessment and Plan (1) NICM (nonischemic cardiomyopathy) Problem details: improved EF per updated ECHO Status: Chronic Assessment and plan: The patient does have cardiomegaly and has had a component of heart failure that is better. He is not in heart failure has a paced rhythm now. Current Visit: Yes (2) Paroxysmal atrial fibrillation Status: Chronic Assessment and plan: The patient has a controlled heart rate now and a pacemaker rhythm. Current Visit: Yes (3) Obstructive sleep apnea Problem details: refusing his mask Status: Chronic Assessment and plan: Patient is doing okay off the ventilator and he is using CPAP. He seems to be tolerating his CPAP fairly well. Current Visit: Yes (4) Alcoholic cirrhosis Status: Chronic Assessment and plan: Patient does have improvement in his liver test and his bilirubin is down to 1.0. He is fairly calm and responsive now. His liver enzymes are better. He is still quite encephalopathic. He still does not follow commands Current Visit: Yes (5) Aspiration pneumonitis Status: Resolved Assessment and plan: Patient has marked improvement in his chest x-ray and his pneumonia is much better. Clinically his lungs have cleared up nicely. He is doing fairly well off the ventilator. He still requires respiratory therapy but is doing okay. Current Visit: Yes (6) Acute renal failure Status: Resolved Assessment and plan: His renal function is slightly better and his lab work looks a little better with IV fluids. His sodium is 149 but his calcium is down and his creatinine is down to 1.7. Current Visit: Yes
--- NOTE | 2016-07-16 08:10 | Cardiology Progress Note ---
<Risa Hannon Jacky - Last Filed: 07/16/16 08:12> Assessment and Plan - Time spent with patient Time spent with patient: Less than 30 minutes (1) Atrial flutter with rapid ventricular response Status: Acute Assessment and plan: SEE PLAN OF CARE LISTED BELOW. Current Visit: Yes (2) Hypertension Status: Chronic Assessment and plan: SEE PLAN OF CARE LISTED BELOW. Current Visit: No (3) CHF (congestive heart failure) Status: Acute Assessment and plan: SEE PLAN OF CARE LISTED BELOW. Current Visit: No Qualifiers: Congestive heart failure type: systolic Congestive heart failure chronicity : acute on chronic Qualified Code(s): I50.23 - Acute on chronic systolic ( congestive) heart failure (4) Failure to thrive Status: Chronic Assessment and plan: SEE PLAN OF CARE LISTED BELOW. Current Visit: Yes Qualifiers: Failure to thrive age range: in adult Qualified Code(s): R62.7 - Adult failure to thrive (5) Paroxysmal atrial fibrillation Status: Chronic Assessment and plan: SEE PLAN OF CARE LISTED BELOW. Current Visit: Yes (6) Obstructive sleep apnea Problem details: refusing his mask Status: Chronic Assessment and plan: SEE PLAN OF CARE LISTED BELOW. Current Visit: Yes (7) Alcoholic cirrhosis Status: Chronic Assessment and plan: SEE PLAN OF CARE LISTED BELOW. Current Visit: Yes (8) Acute pancreatitis Status: Resolved Assessment and plan: SEE PLAN OF CARE LISTED BELOW. Current Visit: Yes Qualifiers: Pancreatitis type: alcohol induced (9) Alcohol abuse Status: Chronic Assessment and plan: SEE PLAN OF CARE LISTED BELOW. Current Visit: Yes (10) Hypotension Status: Acute Assessment and plan: SEE PLAN OF CARE LISTED BELOW. Current Visit: Yes Qualifiers: Hypotension type: orthostatic hypotension Qualified Code(s): I95.1 - Orthostatic hypotension Cardiology - PN: Subj Interval history: BOSS DYER: DR. CONLEY (last seen in 2013) PCP: DR. BOONE Mr. Tracy is a 60 year old male who has not followed with Dr. Conley since 2013. He has a history of anxiety, atrial fibrillation, diabetes, hypertension, psoriasis, tachybradycardia syndrome status post dual-chamber pacemaker placement, obstructive sleep apnea (noncompliant), hyperlipidemia, EtOH abuse. Risk factors are significant for: Diabetes, hyperlipidemia, hypertension, obesity, sedentary lifestyle. He was admitted to the hospital on June 15, 2016 and found to have pancreatitis , liver failure, and hepatorenal syndrome. He has been seen by gastroenterology , sleep medicine, nephrology. He required intubation for several days and has been extubated and is now on O2 via facemask. He has been minimally responsive and neurology has been following his encephalopathy. He is now arousable to verbal stimuli but will not follow commands. We were initially consulted to see him due to refractory tachycardia. We followed him and treated his atrial flutter w/ RVR for several days. He was being maintained on PO Cardizem in addition to Vitamin C and electrolyte replacement therapy and we subsequently signed off on 07/09/16. On 07/14/16, he went back into atrial fibrillation with rapid ventricular response and we were reconsulted. He was placed back on IV Cardizem and we have been attempting to control his heart rate. Yesterday, we added oral diltiazem and this morning he is off IV diltiazem and has rates in the 60s-70s. He continues to have an irregular rhythm. See plan of care below. Overall, Mr. Tracy has a very poor prognosis. Dr. Butcher to follow with further plan and addendum. ASSESSMENT/PLAN: 1. ATRIAL FLUTTER W/ RVR - Sotalol stopped due to VT/torsades. He has been unable to tolerate beta shantelle due to intermittent hypotension but overall BPs are much improved. He was loaded with Digoxin and is now receiving this per NG daily. He was previously on aspirin and Eliquis for stroke prevention. These are being held due to his profound anemia. He has required transfusion of 5 units PRBCs this admission, last transfusion on 06/21/2016. He has been started on Lovenox for DVT prophylaxis and stroke protection. 2. HYPERTENSION - Blood pressures have been up and down and are currently well controlled. No longer requiring vasopressor support. Will continue to monitor. 3. CHF - Echocardiogram 06/16/16 revealed EF 60%, grade I/IV diastolic dysfunction. Probably due to volume issues and his other underlying problems. 4. FAILURE TO THRIVE - This is secondary to multiple medical issues and problems. 5. PAROXYSMAL ATRIAL FIBRILLATION - We added oral dilitazem yesterday and his rates are much improved today. He was given a dose of IV lopressor this morning and this helped his heart rate tremendously, but his blood pressure subsequently dropped and his 0500 dose of diltiazem was held. We will continue to monitor. 6. OBSTRUCTIVE SLEEP APNEA - He has previously been noncompliant with CPAP and refused to wear his mask. Complicates his overall issues. Has been ventilated and now extubated and on O2 via facemask. 7. ACUTE PANCREATITIS - Alcohol induced, resolved. 8. ALCOHOLIC CIRRHOSIS - 9. ALCOHOL ABUSE - Per Dr. Garcia's notes, the patient's would like for him to go to a treatment center when he is medically stable; however, he may require transfer to 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 His prognosis is very poor. This complicates his overall issues. 10. HYPOTENSION - His hypotension is complicated by his multiple medical problems. He is no longer requiring vasopressor support; however, he has had some lower pressures this morning. We will continue to monitor and adjust his medications as needed. Exam (Progress Note) - Constitutional Vitals: Period Temp Pulse Resp BP Sys/Mcbride Pulse Ox Last 24 Hr 98.1 F-98.9 F 68-134 16-27 90-164/48-100 93-100 Exam: General appearance: On BiPAP. Obese. no acute distress. - Head Head exam: Present: normal inspection, normocephalic, atraumatic. Absent: hematoma, laceration - Eye Eye exam: Present: EOMI. Absent: conjunctival injection, nystagmus, periorbital swelling, scleral icterus, laceration to eyelids Pupils: Present: PERRL. Absent: constricted, dilated, fixed, irregular, unequal - ENT ENT exam: Present: normal external ear exam. NG tube in place with tube feedings. - Neck Neck exam: Present: normal inspection. Absent: lymphadenopathy, meningismus, tenderness, thyromegaly - Respiratory Respiratory exam: Present: Rhonchorous breath sounds. Extubated 06/29/16. Absent : accessory muscle use - Cardiovascular Cardiovascular exam: Present: Irregular rate and rhythm, atrial pacing per threat monitoring analyst with well controlled rate. Absent: gallop, JVD, rubs, murmur - GI/Abdominal GI/Abdominal exam: Present: normal bowel sounds, soft. Absent: distended, firm , guarding, hernia, mass, tenderness, rebound. - Extremities Exam Extremities exam: Present: normal inspection, normal capillary refill. Upper extremity pulses 2+. Lower extremity pulses diminished. Trace bilateral lower extremity edema. Able to move all extremities. Absent: calf tenderness - Back Exam Back exam: Present: Unable to examine due to habitus. Extubated 06/29/16. - Neurological Exam Neurological exam: Present: Arousable to verbal stimuli. Does not follow commands. No resting or essential tremor. - Skin Skin exam: Present: normal color, warm, dry, intact. Absent: cyanosis, diaphoretic, rash, urticaria Result/EKG - Labs CBC & BMP: 07/16/16 03:48 07/16/16 03:48 Lab Results: I have reviewed the past 24 hour labs Labs: Laboratory Results - last 24 hr 07/15/16 07/15/16 07/15/16 04:42 11:37 17:42 WBC RBC Hgb Hct MCV MCH MCHC RDW Plt Count MPV Neut % (Auto) Lymph % (Auto) Erath % (Auto) Eos % (Auto) Baso % (Auto) Neut # (Auto) Lymph # (Auto) Erath # (Auto) Eos # (Auto) Baso # (Auto) Immature Gran % Nucleated RBC % Immature Gran # Nucleated RBCs # Sodium Potassium Chloride Carbon Dioxide Anion Gap BUN Creatinine GFR Calculation BUN/Creatinine Ratio Glucose POC Glucose 163 H 136 H Calculated Osmolality Calcium Magnesium Total Bilirubin AST ALT Alkaline Phosphatase Total Protein 8.1 Albumin Globulin Albumin/Globulin Ratio Free T4 1.44 TSH 3rd Generation 3.780 H 07/15/16 07/16/16 07/16/16 23:29 03:48 03:48 WBC 15.4 H RBC 3.01 L Hgb 9.6 L Hct 29.9 L MCV 99.3 MCH 32 MCHC 32.1 RDW 17.5 H Plt Count 192 MPV 13.2 H Neut % (Auto) 71.2 Lymph % (Auto) 11.2 L Erath % (Auto) 12.2 Eos % (Auto) 3.6 Baso % (Auto) 0.4 Neut # (Auto) 10.9 H Lymph # (Auto) 1.7 Erath # (Auto) 1.9 H Eos # (Auto) 0.6 Baso # (Auto) 0.1 Immature Gran % 1.4 Nucleated RBC % 0.0 Immature Gran # 0.22 Nucleated RBCs # 0.00 Sodium 148 H Potassium 5.3 H Chloride 114 H Carbon Dioxide 23 Anion Gap 16.3 H BUN 133 H Creatinine 1.70 H GFR Calculation 54 BUN/Creatinine Ratio 78.00 H Glucose 135 H POC Glucose 146 H Calculated Osmolality 338.3 H Calcium 10.7 H Magnesium 2.7 H Total Bilirubin AST ALT Alkaline Phosphatase Total Protein Albumin Globulin Albumin/Globulin Ratio Free T4 TSH 3rd Generation 07/16/16 07/16/16 03:48 05:09 WBC RBC Hgb Hct MCV MCH MCHC RDW Plt Count MPV Neut % (Auto) Lymph % (Auto) Erath % (Auto) Eos % (Auto) Baso % (Auto) Neut # (Auto) Lymph # (Auto) Erath # (Auto) Eos # (Auto) Baso # (Auto) Immature Gran % Nucleated RBC % Immature Gran # Nucleated RBCs # Sodium 149 H Potassium 5.3 H Chloride 115 H Carbon Dioxide 22 Anion Gap 17.3 H BUN 130 H Creatinine 1.70 H GFR Calculation 54 BUN/Creatinine Ratio 76.00 H Glucose 139 H POC Glucose 165 H Calculated Osmolality 339.1 H Calcium 10.9 H Magnesium Total Bilirubin 0.90 AST 22 ALT 15 L Alkaline Phosphatase 56 Total Protein 7.9 Albumin 5.8 H Globulin 2.1 L Albumin/Globulin Ratio 2.7 H Free T4 TSH 3rd Generation - EKG EKG results: interpreted by me (atrial pacing with what appears to be underlying atrial flutter) Quality Measures - VTE Contraindication to Pharmacological VTE Prophylaxis: Active Bleeding <Carlos Butcher - Last Filed: 07/16/16 10:06> Assessment and Plan (1) Atrial flutter with rapid ventricular response Status: Acute Current Visit: Yes (2) Hypertension Status: Chronic Current Visit: No (3) CHF (congestive heart failure) Status: Acute Current Visit: No Qualifiers: Congestive heart failure type: systolic Congestive heart failure chronicity : acute on chronic Qualified Code(s): I50.23 - Acute on chronic systolic ( congestive) heart failure (4) Failure to thrive Status: Chronic Current Visit: Yes Qualifiers: Failure to thrive age range: in adult Qualified Code(s): R62.7 - Adult failure to thrive (5) Paroxysmal atrial fibrillation Status: Chronic Current Visit: Yes (6) Obstructive sleep apnea Problem details: refusing his mask Status: Chronic Current Visit: Yes (7) Acute pancreatitis Status: Resolved Current Visit: Yes Qualifiers: Pancreatitis type: alcohol induced (8) Alcoholic cirrhosis Status: Chronic Current Visit: Yes (9) Alcohol abuse Status: Chronic Current Visit: Yes (10) Hypotension Status: Acute Current Visit: Yes Qualifiers: Hypotension type: orthostatic hypotension Qualified Code(s): I95.1 - Orthostatic hypotension Cardiology - PN: Subj Interval history: Patient personally examined and chart reviewed. I discussed this patient's case with Risa Hannon NP. I agree with the evaluation and assessment and plan. The patient's general situation does not improve or change. At present he is in probably what appears to be an atrial paced rhythm. His heart rates much improved with this. Course she has been in and out of this type of rhythm. Generally there is no other changes. His prognosis remains poor. From a cardiac standpoint he is hemodynamically stable as stated his rhythm is stable at this time. Exam (Progress Note) - Constitutional Vitals: Period Temp Pulse Resp BP Sys/Mcbride Pulse Ox Last 24 Hr 98.1 F-98.9 F 68-134 16-27 90-164/48-100 93-100 Exam: The time of exam appears the patient is an electronic atrial pacing and his rhythm is regular in in the 80s. Result/EKG - Labs CBC & BMP: 07/16/16 03:48 07/16/16 03:48 Labs: Laboratory Results - last 24 hr 07/15/16 07/15/16 07/15/16 04:42 04:42 11:37 WBC RBC Hgb Hct MCV MCH MCHC RDW Plt Count MPV Neut % (Auto) Lymph % (Auto) Erath % (Auto) Eos % (Auto) Baso % (Auto) Neut # (Auto) Lymph # (Auto) Erath # (Auto) Eos # (Auto) Baso # (Auto) Immature Gran % Nucleated RBC % Immature Gran # Nucleated RBCs # Sodium Potassium Chloride Carbon Dioxide Anion Gap BUN Creatinine GFR Calculation BUN/Creatinine Ratio Glucose POC Glucose 163 H Calculated Osmolality Calcium Magnesium Total Bilirubin AST ALT Alkaline Phosphatase Total Protein 8.1 Albumin Globulin Albumin/Globulin Ratio Free T4 1.44 TSH 3rd Generation 3.780 H Pro Electrophoresis Int Serum Total Protein PEP 8.1 Albumin (PEP) 6.3 H Albumin (relative) 78.2 Sbxfk-3-Rflqubjn 0.1 Gagau-6-Hqdtsdbg rel 1.8 Sxfek-7-Uaeykdrc 0.6 Dgtkq-4-Toynqoow rel 7.9 Jjyj-0-Tyhwpbtj 0.5 Sruz-6-Rbtzerzp rel 6.1 Gamma Globulins 0.5 L Gamma Globulins rel 6.0 07/15/16 07/15/16 07/16/16 17:42 23:29 03:48 WBC 15.4 H RBC 3.01 L Hgb 9.6 L Hct 29.9 L MCV 99.3 MCH 32 MCHC 32.1 RDW 17.5 H Plt Count 192 MPV 13.2 H Neut % (Auto) 71.2 Lymph % (Auto) 11.2 L Erath % (Auto) 12.2 Eos % (Auto) 3.6 Baso % (Auto) 0.4 Neut # (Auto) 10.9 H Lymph # (Auto) 1.7 Erath # (Auto) 1.9 H Eos # (Auto) 0.6 Baso # (Auto) 0.1 Immature Gran % 1.4 Nucleated RBC % 0.0 Immature Gran # 0.22 Nucleated RBCs # 0.00 Sodium Potassium Chloride Carbon Dioxide Anion Gap BUN Creatinine GFR Calculation BUN/Creatinine Ratio Glucose POC Glucose 136 H 146 H Calculated Osmolality Calcium Magnesium Total Bilirubin AST ALT Alkaline Phosphatase Total Protein Albumin Globulin Albumin/Globulin Ratio Free T4 TSH 3rd Generation Pro Electrophoresis Int Serum Total Protein PEP Albumin (PEP) Albumin (relative) Dbnwf-0-Mngaoayn Rgurf-7-Esbisahe rel Jzerq-9-Eicdvzmx Nhcxe-7-Xvizkpsw rel Qfhy-0-Wvjevxou Qmbn-7-Tooksvno rel Gamma Globulins Gamma Globulins rel 07/16/16 07/16/16 07/16/16 03:48 03:48 05:09 WBC RBC Hgb Hct MCV MCH MCHC RDW Plt Count MPV Neut % (Auto) Lymph % (Auto) Erath % (Auto) Eos % (Auto) Baso % (Auto) Neut # (Auto) Lymph # (Auto) Erath # (Auto) Eos # (Auto) Baso # (Auto) Immature Gran % Nucleated RBC % Immature Gran # Nucleated RBCs # Sodium 148 H 149 H Potassium 5.3 H 5.3 H Chloride 114 H 115 H Carbon Dioxide 23 22 Anion Gap 16.3 H 17.3 H BUN 133 H 130 H Creatinine 1.70 H 1.70 H GFR Calculation 54 54 BUN/Creatinine Ratio 78.00 H 76.00 H Glucose 135 H 139 H POC Glucose 165 H Calculated Osmolality 338.3 H 339.1 H Calcium 10.7 H 10.9 H Magnesium 2.7 H Total Bilirubin 0.90 AST 22 ALT 15 L Alkaline Phosphatase 56 Total Protein 7.9 Albumin 5.8 H Globulin 2.1 L Albumin/Globulin Ratio 2.7 H Free T4 TSH 3rd Generation Pro Electrophoresis Int Serum Total Protein PEP Albumin (PEP) Albumin (relative) Zfhta-5-Ecsqftbo Ipjzd-6-Fvjgxqbz rel Dtaze-4-Cexydpyj Yjvcl-5-Dlrxxeas rel Xzoq-3-Xlqviznp Knrx-7-Rzvwhdfx rel Gamma Globulins Gamma Globulins rel - Impressions Impressions: At present he appears to be electronic atrial pacing. Previously he was in atrial fibrillation with fairly well managed heart rates.Reviewing his strips he is an out of atrial fibrillation. He is not a candidate for full anticoagulation. He is on DVT prophylaxis.
--- NOTE | 2016-07-16 08:43 | Internal Med Progress Note ---
Assessment and Plan (1) Respiratory failure Status: Acute Assessment and plan: 60-year-old male admitted to acute care * Respiratory failure. He is doing better. * Encephalopathy. He continues to be lethargic. * Atrial flutter. He is in paced rhythm. * Acute renal failure. Improving after hydration * Patient is DNR * Patient needs PEG tube placement. Will consult GI * Overall prognosis is poor * No family is present. Current Visit: Yes (2) Obstructive sleep apnea Problem details: refusing his mask Status: Chronic Current Visit: Yes (3) Acute pancreatitis Status: Resolved Current Visit: Yes Qualifiers: Pancreatitis type: alcohol induced (4) Aspiration pneumonitis Status: Resolved Current Visit: Yes (5) CHF (congestive heart failure) Status: Acute Current Visit: No Qualifiers: Congestive heart failure type: systolic Congestive heart failure chronicity : acute on chronic Qualified Code(s): I50.23 - Acute on chronic systolic ( congestive) heart failure (6) Atrial flutter Status: Resolved Current Visit: No Internal Medicine - PN: Subj Interval history: Patient is poorly responsive. He is still not following any commands. Exam (Progress Note) - Constitutional Vitals: Period Temp Pulse Resp BP Sys/Mcbride Pulse Ox Last 24 Hr 98.1 F-98.9 F 68-134 16-27 90-164/48-100 93-100 Exam: Examination: GENERAL: NAD. NECK: Neck is supple. CVS: Rhythm is irregularly irregular RESPIRATORY: Lungs are clear. ABDOMEN: Soft and nontender. EXT: No edema. VP [employer]: Patient appears poorly responsive SKIN: Warm and dry. Results - Labs CBC & BMP: 07/16/16 03:48 07/16/16 03:48 Lab Results: I have reviewed the past 24 hour labs Quality Measures - VTE Contraindication to Pharmacological VTE Prophylaxis: Active Bleeding
[2016-07-16] MEDS: LACTULOSE 20 GM/30 ML UDCUP PO SCH ×2 (09:10→21:34)
[2016-07-16] MEDS: MIDODRINE 5 MG TABLET PO SCH ×3 (09:10→21:34)
[2016-07-16] MEDS: PANTOPRAZOLE 40 MG VIAL IV SCH (09:11)
[2016-07-16] MEDS: NYSTATIN CREAM 15 GM TUBE TOP SCH ×2 (09:11→21:34)
[2016-07-16 09:12] LABS: Albumin (SPE) 6.3 G/DL (3.2-5.3); Albumin (SPE) Rel % 78.2 %; Alpha 1 (SPE) 0.1 G/DL (0.1-0.4); Alpha 1 (SPE) Rel % 1.8 %; Alpha 2 (SPE) 0.6 G/DL (0.4-1.0); Alpha 2 (SPE) Rel % 7.9 %; Beta (SPE) 0.5 G/DL (0.5-1.1); Beta (SPE) Rel % 6.1 %; Gamma (SPE) 0.5 G/DL (0.7-1.7); Total Protein (Chem) 8.1 G/DL (6.4-8.2)
[2016-07-16] MEDS: DESITIN 4OZ/NYSTATIN 15 GRAM MIXTURE PASTE TOP SCH ×2 (10:43→21:34)
--- NOTE | 2016-07-16 11:35 | Gastrointestinal Progress Note ---
Assessment and Plan (1) Anemia Status: Chronic Assessment and plan: 07/16-hemoglobin stable at 9.6 no reports of overt bleeding. Plan an addendum to follow by Dr. Ray. 06/23-Hgb 11.2, no overt bleeding. Plan and addendum to follow by Dr Ray. 06/22-Hgb 9.7, no overt bleeding. No pressor support. Continue to monitor for bleeding and HH. Plan and addendum to follow by Dr Ray 06/21-hemoglobin down at 8.6 today. Receiving 2 units of blood. No overt bleeding. Continue to monitor H&H. Plan an addendum to followed by Dr. Ray. 06/18-Hgb stable at 9.2 w/o overt bleeding. PICC line placed today. Pressor support started. EGD findings noted. Continue to monitor HH and transfuse as needed. Plan and addendum to follow by Dr Ray. 06/16-Findings on admission of hgb 7.8, no reports of overt bleeding. No known prior endoscopy. Noted to be on Eliquis prior to admission for A-fib, held at present time. Continue to monitor HH. Plan and addendum to follow by Dr Ray. Current Visit: Yes (2) Dysphagia Status: Acute Assessment and plan: 07/16-patient remains obtunded, unable to take in oral nutrition. Receiving NG feedings. For long-term care placement upon discharge. Reconsult for possible PEG placement prior to discharge. Plan an addendum to followed by Dr. Ray. Current Visit: Yes Gastroenterology - PN: Subj Interval history: CC: Anemia/encephalopathy Patient was last seen by GI services on 06/23 after following from admission for anemia. Patient was eventually intubated for acute respiratory failure and further GI workup was unable to be accomplished at that time. Patient has a long history of heavy alcohol use and hepatic encephalopathy. Patient is now extubated and consideration is being giving far long-term placement upon discharge. Patient is currently receiving NG tube feedings and is tolerating these well. Family is now requesting consideration for PEG placement so patient could possibly be placed in a long-term care facility. Patient will open eyes to verbal stimuli but follows no commands. His hemoglobin is stabilized at 9.6 with no reports of overt bleeding. His acute renal failure is also noted to be improving at this time. Patient has been made DNR by his family. Abdomen is soft, nontender. ROS: No acute distress noted Exam (Progress Note) - Constitutional Vitals: Period Temp Pulse Resp BP Sys/Mcbride Pulse Ox Last 24 Hr 97.4 F-98.9 F 68-134 16-27 90-164/48-100 93-100 General appearance: no acute distress, over weight - Head Head exam: Present: normal inspection, normocephalic - Eye Eye exam: Present: other (Lids and conjunctive are unremarkable). Absent: scleral icterus - ENT ENT exam: Present: normal exam, normal oropharynx - Neck Neck exam: Present: normal inspection - Respiratory Respiratory exam: Present: clear to auscultation bilaterally. Absent: rales, rhonchi, wheezes - Cardiovascular Cardiovascular exam: Present: regular rate and rhythm. Absent: diastolic murmur , JVD, systolic murmur - GI/Abdominal GI/Abdominal exam: Present: normal bowel sounds, soft. Absent: ascites, distended, mass, organomegaly, tenderness - Extremities Exam Extremities exam: Present: normal inspection - Back Exam Back exam: Present: normal inspection - Neurological Exam Neurological exam: Present: altered - Psychiatric Psychiatric exam: Present: other - Skin Skin exam: Present: normal color, warm, dry Results - Labs CBC & BMP: 07/16/16 03:48 07/16/16 03:48 Lab Results: I have reviewed the past 24 hour labs
[2016-07-16] MEDS: SODIUM CHLORIDE 0.45% 1,000 ML IV SCH (11:46)
[2016-07-16] MEDS: DIGOXIN 0.125 MG TABLET PO SCH (12:29)
--- NOTE | 2016-07-16 13:45 | Nephrology Progress Note ---
Nephrology - PN: Subj Interval history: He is awake but remains confused. Blood pressure stable Exam (PN)-Nephrology - Vital Signs Vital signs: Period Temp Pulse Resp BP Sys/Mcbride Pulse Ox Last 24 Hr 97.4 F-98.9 F 67-134 16-27 90-164/48-100 93-100 Exam: ENT: Normal Cardiovascular: Regular rate and rhythm. No murmur rub or gallop Lungs: Clear Extremities: No edema - Lab 07/16/16 03:48 07/16/16 03:48 Most recent lab results ABG pH 7.471 (7.35-7.45) H 07/12/16 03:25 ABG pCO2 31.4 MM HG (35-48) L 07/12/16 03:25 ABG pO2 162.3 MM HG (80-95) H 07/12/16 03:25 ABG HCO3 22.4 MMOL/L (20-26) 07/12/16 03:25 ABG O2 Saturation 98.5 % (95-100) 07/12/16 03:25 Calcium 10.9 MG/DL (8.5-10.1) H 07/16/16 03:48 Phosphorus 5.8 MG/DL (2.5-4.9) H 07/12/16 03:31 Magnesium 2.7 MG/DL (1.8-2.4) H 07/16/16 03:48 Assessment and Plan (1) Acute renal failure Status: Resolved Assessment and plan: 60-year-old man admitted with: * ARF. Renal function is improving. Continue IV fluid * Hypercalcemia. He has been on no supplements. IV fluids should help. This may be aggravated by immobility. * Anemia. * Chronic liver disease * History of hypertension * Paroxysmal A. fib * Cardiomyopathy * Ethanol abuse * Peptic ulcer disease Current Visit: Yes (2) Anemia Status: Chronic Current Visit: Yes (3) Hypotension Status: Acute Current Visit: Yes Qualifiers: Hypotension type: orthostatic hypotension Qualified Code(s): I95.1 - Orthostatic hypotension (4) Obstructive sleep apnea Problem details: refusing his mask Status: Chronic Current Visit: Yes (5) Alcohol abuse Status: Chronic Current Visit: Yes (6) Ascites Status: Chronic Current Visit: Yes Qualifiers: Ascites type: due to alcoholic cirrhosis Qualified Code(s): K70.31 - Alcoholic cirrhosis of liver with ascites (7) NICM (nonischemic cardiomyopathy) Problem details: improved EF per updated ECHO Status: Chronic Current Visit : Yes (8) Paroxysmal atrial fibrillation Status: Chronic Current Visit: Yes
[2016-07-16] MEDS: ENOXAPARIN 40 MG/0.4 ML SYRINGE SUBCUT SCH (14:39)
[2016-07-16] MEDS: KETOCONAZOLE 2% SHAMPOO 120 ML BOTTLE TOP SCH (23:47)
[2016-07-17] MEDS: FAMOTIDINE 20 MG/2 ML VIAL IV SCH (00:02)
[2016-07-17] MEDS: INSULIN REGULAR 100 UNIT/ML SUBCUT SCH ×4 (00:02→18:05)
[2016-07-17] MEDS: SODIUM CHLORIDE 0.45% 1,000 ML IV SCH ×3 (00:03→16:41)
[2016-07-17] MEDS: ERYTHROMYCIN IV SCH ×3 (01:53→17:56)
[2016-07-17] MEDS: SODIUM CHLORIDE 0.9% IV SCH ×3 (01:53→17:56)
[2016-07-17] MEDS: LEVALBUTEROL 1.25 MG/3 ML NEB RESP TX SCH ×4 (04:10→19:07)
[2016-07-17 05:48] LABS: Basophils % 0.3 % (0.0-0.8); Eosinophils # 0.8 10*3/uL (0.0-0.87); Eosinophils % 5.5 % (0.00-10.9); Hematocrit 28.5 VOL% (42.0-52.0); Hemoglobin 9.1 GM/DL (14.0-18.0); Immature Granulocytes % 1.3 %; Immature Granulocytes Absolute 0.19 #; Lymphocytes # 1.7 10*3/uL (1.4-4.0); Lymphocytes % 11.6 % (21.2-54.2); Mean Corpuscular HGB Conc 31.9 GM/DL (32-36); Mean Corpuscular Hemoglobin 32 PG (27-34); Mean Corpuscular Volume 99.3 FL (87-102); Mean Platelet Volume 12.5 FL (9.6-12.0); Monocytes # 1.3 10*3/uL (0.11-0.8); Monocytes % 8.8 % (1.7-12.7); Neutrophils # 10.3 10*3/uL (1.4-7.4); Neutrophils % 72.5 % (38.7-73.9); Platelet Count 182 T/CUMM (130-400); Red Blood Count 2.87 MC/CUMM (3.8-5.5); Red Cell Distribution Width 16.9 % (9.3-17.3); White Blood Count 14.2 T/CUMM (4-12)
[2016-07-17 06:10] LABS: Calcium 11.4 MG/DL (8.5-10.1); Magnesium 2.6 MG/DL (1.8-2.4); Osmolality,Calculated 337.9 MOS/KG (273-304); Potassium 5.1 MMOL/L (3.5-5.1)
[2016-07-17] MEDS: LEVOTHYROXINE 75 MCG TABLET PO SCH (06:17)
--- NOTE | 2016-07-17 07:04 | Cardiology Progress Note ---
Assessment and Plan (1) Atrial flutter with rapid ventricular response Status: Acute Assessment and plan: At present this is managed with medications. Electronic atrial paced. Current Visit: Yes (2) Hypertension Status: Chronic Assessment and plan: Not issue at this time on his present medical regimen. Current Visit: No (3) CHF (congestive heart failure) Status: Acute Assessment and plan: LV function is normal with minimal diastolic dysfunction. Stable. Current Visit: No Qualifiers: Congestive heart failure type: systolic Congestive heart failure chronicity : acute on chronic Qualified Code(s): I50.23 - Acute on chronic systolic ( congestive) heart failure (4) Failure to thrive Status: Chronic Assessment and plan: This is secondary to multiple medical issues and problems. Current Visit: Yes Qualifiers: Failure to thrive age range: in adult Qualified Code(s): R62.7 - Adult failure to thrive (5) Paroxysmal atrial fibrillation Status: Chronic Assessment and plan: Presently in atrial paced Current Visit: Yes (6) Obstructive sleep apnea Problem details: refusing his mask Status: Chronic Assessment and plan: Complications overall issues. Current Visit: Yes (7) Acute pancreatitis Status: Resolved Current Visit: Yes Qualifiers: Pancreatitis type: alcohol induced (8) Alcoholic cirrhosis Status: Chronic Current Visit: Yes (9) Alcohol abuse Status: Chronic Current Visit: Yes (10) Hypotension Status: Acute Assessment and plan: BP ok. Current Visit: Yes Qualifiers: Hypotension type: orthostatic hypotension Qualified Code(s): I95.1 - Orthostatic hypotension Cardiology - PN: Subj Interval history: Patient today continues to be in electronic atrial pacing. His blood pressures are much improved. General his mental status is the same. He has had no dysrhythmias. Patient still lethargic and encephalopathic. Consent unavailable 24 hours from our standpoint. His digoxin level is elevated at 2.2. We will stop his digoxin for now and restart it Tuesday after checking his dig level Tuesday morning. From our standpoint the patient remained stable for the last 48-72 hours. Patient has been stable so we will not see tomorrow see him again on Tuesday. Exam (Progress Note) - Constitutional Vitals: Period Temp Pulse Resp BP Sys/Mcbride Pulse Ox Last 24 Hr 97.4 F-97.9 F 60-83 14-23 93-158/51-82 94-100 Exam: General appearance: Patient is known facemask BiPAP no distress but moving around. He is still obtunded/encephalopathic. HEENT: He has BiPAP mask on. Normocephalic. NG tube is in place. Neck: Trachea is in midline. Lungs: Anteriorly with coarse breath sounds but overall good air movement. Cardiovascular: Regular rhythm. No gross murmur. Abdomen: Soft bowel sounds present nondistended. No tenderness elicited on direct palpation. Extremities:No edema. Neurologic: obtunded and encephlopathic. Result/EKG - Labs CBC & BMP: 07/17/16 05:13 07/17/16 05:57 Lab Results: I have reviewed the past 24 hour labs Labs: Laboratory Results - last 24 hr 07/15/16 07/16/16 07/16/16 04:42 05:09 11:35 WBC RBC Hgb Hct MCV MCH MCHC RDW Plt Count MPV Neut % (Auto) Lymph % (Auto) [place] % (Auto) Eos % (Auto) Baso % (Auto) Neut # (Auto) Lymph # (Auto) [place] # (Auto) Eos # (Auto) Baso # (Auto) Immature Gran % Nucleated RBC % Immature Gran # Nucleated RBCs # Sodium Potassium Chloride Carbon Dioxide Anion Gap BUN Creatinine GFR Calculation BUN/Creatinine Ratio Glucose POC Glucose 165 H 151 H Calculated Osmolality Calcium Magnesium Digoxin Pro Electrophoresis Int Serum Total Protein PEP 8.1 Albumin (PEP) 6.3 H Albumin (relative) 78.2 Fnfps-2-Jxwcxpho 0.1 Ysyft-7-Cebduztd rel 1.8 Biubq-7-Cfxyhijb 0.6 Virgm-1-Jkvxlktg rel 7.9 Pyvn-5-Wbwsirik 0.5 Qilb-6-Rsffxxcg rel 6.1 Gamma Globulins 0.5 L Gamma Globulins rel 6.0 07/16/16 07/16/16 07/17/16 18:26 23:42 05:02 WBC RBC Hgb Hct MCV MCH MCHC RDW Plt Count MPV Neut % (Auto) Lymph % (Auto) [place] % (Auto) Eos % (Auto) Baso % (Auto) Neut # (Auto) Lymph # (Auto) [place] # (Auto) Eos # (Auto) Baso # (Auto) Immature Gran % Nucleated RBC % Immature Gran # Nucleated RBCs # Sodium Potassium Chloride Carbon Dioxide Anion Gap BUN Creatinine GFR Calculation BUN/Creatinine Ratio Glucose POC Glucose 144 H 127 H 122 H Calculated Osmolality Calcium Magnesium Digoxin Pro Electrophoresis Int Serum Total Protein PEP Albumin (PEP) Albumin (relative) Kjyen-6-Wcgzmcvz Hpbxw-0-Qsxtyehz rel Psnaa-7-Unnehpso Xrtlb-0-Anipjuta rel Drtw-4-Hvynprpt Wiht-0-Birluxxi rel Gamma Globulins Gamma Globulins rel 07/17/16 07/17/16 07/17/16 05:13 05:57 05:57 WBC 14.2 H RBC 2.87 L Hgb 9.1 L Hct 28.5 L MCV 99.3 MCH 32 MCHC 31.9 L RDW 16.9 Plt Count 182 MPV 12.5 H Neut % (Auto) 72.5 Lymph % (Auto) 11.6 L [place] % (Auto) 8.8 Eos % (Auto) 5.5 Baso % (Auto) 0.3 Neut # (Auto) 10.3 H Lymph # (Auto) 1.7 [place] # (Auto) 1.3 H Eos # (Auto) 0.8 Baso # (Auto) 0.0 Immature Gran % 1.3 Nucleated RBC % 0.0 Immature Gran # 0.19 Nucleated RBCs # 0.00 Sodium 151 H Potassium 5.1 Chloride 117 H Carbon Dioxide 24 Anion Gap 15.1 H BUN 118 H Creatinine 1.30 GFR Calculation 74 BUN/Creatinine Ratio 90.00 H Glucose 108 H POC Glucose Calculated Osmolality 337.9 H Calcium 11.4 H Magnesium 2.6 H Digoxin 2.20 H* Pro Electrophoresis Int Serum Total Protein PEP Albumin (PEP) Albumin (relative) Uvjif-6-Wzfdujxi Rasvd-8-Hjaksrkm rel Gqhep-2-Hvhmymgd Nerhu-4-Yvykfeof rel Carj-1-Eilrmrlt Nqsb-0-Wggyyrtq rel Gamma Globulins Gamma Globulins rel - Impressions Impressions: Electronic atrial paced. Quality Measures - VTE Contraindication to Pharmacological VTE Prophylaxis: Active Bleeding
[2016-07-17 07:56] LABS: Band Neutrophils 3 % (0-10); Eosinophils 2 % (0-10); Lymphocytes 4 % (20-55); Segmented Neutrophils 84 % (50-85); Total Cells Counted 100
[2016-07-17 07:57] LABS: Hypochromasia Slight; Platelet Estimate Adequate; Polychromasia Slight
[2016-07-17] MEDS: MIDODRINE 5 MG TABLET PO SCH ×3 (08:43→21:40)
[2016-07-17] MEDS: DESITIN 4OZ/NYSTATIN 15 GRAM MIXTURE PASTE TOP SCH ×2 (08:43→21:40)
[2016-07-17] MEDS: LACTULOSE 20 GM/30 ML UDCUP PO SCH ×2 (08:43→21:39)
[2016-07-17] MEDS: DILTIAZEM 30 MG TABLET PO SCH ×4 (08:43→21:39)
[2016-07-17] MEDS: NYSTATIN CREAM 15 GM TUBE TOP SCH ×2 (08:43→21:40)
--- NOTE | 2016-07-17 10:13 | Nephrology Progress Note ---
Nephrology - PN: Subj Interval history: The patient condition is about the same. Serum creatinine is stable at 1.3 serum sodium is noted to be 151. Continuing to increase patient's free water flushes. He is currently being in atrial paced. Exam (PN)-Nephrology - Vital Signs Vital signs: Period Temp Pulse Resp BP Sys/Mcbride Pulse Ox Last 24 Hr 97.6 F-97.9 F 60-83 14-23 93-158/51-82 94-100 - General Appearance General appearance: well-developed, well-nourished EENT: ATNC Neck: supple Respiratory: clear Cardiology: no edema, regular rate, regular rhythm Gastrointestinal: no tenderness, no guarding - Lab 07/17/16 05:13 07/17/16 05:57 Most recent lab results ABG pH 7.471 (7.35-7.45) H 07/12/16 03:25 ABG pCO2 31.4 MM HG (35-48) L 07/12/16 03:25 ABG pO2 162.3 MM HG (80-95) H 07/12/16 03:25 ABG HCO3 22.4 MMOL/L (20-26) 07/12/16 03:25 ABG O2 Saturation 98.5 % (95-100) 07/12/16 03:25 Calcium 11.4 MG/DL (8.5-10.1) H 07/17/16 05:57 Phosphorus 5.8 MG/DL (2.5-4.9) H 07/12/16 03:31 Magnesium 2.6 MG/DL (1.8-2.4) H 07/17/16 05:57 Assessment and Plan (1) Hypernatremia Status: Acute Assessment and plan: Continue to increase free water flushes. BMP in a.m. Current Visit: Yes (2) Hypercalcemia Status: Acute Assessment and plan: Continue to increase free water flushes. BMP in a.m. Current Visit: Yes (3) Hypertension Status: Chronic Current Visit: No (4) Acute renal failure Status: Resolved Current Visit: Yes
--- NOTE | 2016-07-17 10:25 | Pulmonology Progress Note ---
Pulmonary - PN: Subj Interval history: 60-year-old male with obesity, chronic liver disease, heart disease and intermittent ventilatory requirement. Patient did well overnight and was able to come off supplemental oxygen. He continues to have decreased mental status and oropharyngeal secretions requiring frequent suctioning. No new concerns today. Exam (Progress Note) - Constitutional Vitals: Period Temp Pulse Resp BP Sys/Mcbride Pulse Ox Last 24 Hr 97.6 F-97.9 F 60-83 14-23 93-158/51-82 94-100 General appearance: over weight - Head Head exam: Present: normal inspection - Eye Pupils: Present: KARLEE - ENT ENT exam: Present: normal exam - Neck Neck exam: Present: normal inspection - Respiratory Respiratory exam: Present: rhonchi (Transmitted upper airway sounds from oral secretions). Absent: rales, wheezes - Cardiovascular Cardiovascular exam: Present: regular rate and rhythm - GI/Abdominal GI/Abdominal exam: Present: normal bowel sounds, soft. Absent: guarding, rebound - Extremities Exam Extremities exam: Present: normal inspection - Neurological Exam Neurological exam: Present: altered (Arousable but does not follow commands.) - Skin Skin exam: Present: normal color, warm, dry Results - Labs CBC & BMP: 07/17/16 05:13 07/17/16 05:57 Assessment and Plan (1) Respiratory failure Status: Acute Assessment and plan: Ongoing with intermittent requirement for mechanical ventilation. Currently extubated and maintaining saturations on room air. Continue to monitor and provide deep suctioning for oropharyngeal secretions. Continue nebs. Current Visit: Yes (2) NICM (nonischemic cardiomyopathy) Problem details: improved EF per updated ECHO Status: Chronic Assessment and plan: No acute issues. Defer to cardiology. Current Visit: Yes (3) Hypernatremia Status: Acute Assessment and plan: Recommend increasing free water flushes for uptrending sodium. Current Visit: Yes
[2016-07-17] MEDS: METOPROLOL TARTRATE 5 MG/5 ML VIAL IV PRN (11:24)
--- NOTE | 2016-07-17 12:58 | Internal Med Progress Note ---
Assessment and Plan (1) Alcohol abuse Status: Chronic Current Visit: Yes (2) Ascites Status: Chronic Current Visit: Yes Qualifiers: Ascites type: due to alcoholic cirrhosis Qualified Code(s): K70.31 - Alcoholic cirrhosis of liver with ascites (3) Elevated liver enzymes Status: Chronic Current Visit: Yes (4) Failure to thrive Status: Chronic Current Visit: Yes Qualifiers: Failure to thrive age range: in adult Qualified Code(s): R62.7 - Adult failure to thrive (5) Hypotension Status: Acute Current Visit: Yes Qualifiers: Hypotension type: orthostatic hypotension Qualified Code(s): I95.1 - Orthostatic hypotension (6) NICM (nonischemic cardiomyopathy) Problem details: improved EF per updated ECHO Status: Chronic Current Visit : Yes (7) Obstructive sleep apnea Problem details: refusing his mask Status: Chronic Current Visit: Yes (8) Encephalopathy Status: Chronic Current Visit: Yes Internal Medicine - PN: Subj Interval history: Mr. Tracy is a 60 year old male patient of Dr. Yair Reyes with history of dilated cardiomyopathy with EF 25%, diastolic dysfunction, sinus tachy debra syndrome with pacemaker placement, DM, liver cirrhosis, alcoholism, hypothyroidism, paroxysmal atrial fibrillation, who presented to ER with profound and worsening weakness. He was found to have pancreatitis, liver failure, and possibly hepatorenal syndrome. He is in renal failure. He reported to ER that he has not been eating/drinking over several days, except for drinking alcohol. He admits to alcoholism as reported by ER. June 25, he is on ventilator support, requiring tube feedings. Still tachycardic. Seeing him again today, July 01, for Dr. Yair Reyes. He is off of ventilator support but requiring CPAP. He appears to be very frail. Failure to thrive. Consult for [facility] is pending. He is in sinus rhythm with well- controlled heart rate. Rounding on him today, July 17, and he is somnolent. Rapid heart rate, and re- starting diltiazem infusion. [facility]. Prognosis poor. Persistent encephalopathy and failure to thrive. Exam (Progress Note) - Constitutional Vitals: Period Temp Pulse Resp BP Sys/Mcbride Pulse Ox Last 24 Hr 97.6 F-97.9 F 60-136 14-23 93-158/51-86 94-100 Exam: General appearance: no acute distress - Respiratory Respiratory exam: Present: clear to auscultation bilaterally - Cardiovascular Cardiovascular exam: Present: regular rate and rhythm - GI/Abdominal GI/Abdominal exam: Present: bowel sounds - Extremities Exam Extremities exam: Absent: edema - Neurological Exam Neurological exam: Present: somnolent - Skin Skin exam: Present: warm and dry Vitals reviewed. Results - Labs CBC & BMP: 07/17/16 05:13 07/17/16 05:57 Quality Measures - VTE Contraindication to Pharmacological VTE Prophylaxis: Active Bleeding
[2016-07-17] MEDS: ENOXAPARIN 40 MG/0.4 ML SYRINGE SUBCUT SCH (14:11)
[2016-07-18] MEDS: LEVALBUTEROL 1.25 MG/3 ML NEB RESP TX SCH ×4 (00:06→18:55)
[2016-07-18] MEDS: FAMOTIDINE 20 MG/2 ML VIAL IV SCH (01:01)
[2016-07-18] MEDS: INSULIN REGULAR 100 UNIT/ML SUBCUT SCH ×4 (01:01→18:06)
[2016-07-18] MEDS: ERYTHROMYCIN IV SCH ×3 (01:02→16:46)
[2016-07-18] MEDS: SODIUM CHLORIDE 0.9% IV SCH ×3 (01:02→16:46)
[2016-07-18] MEDS: DEXTROSE 5% 1,000 ML IV SCH ×2 (01:02→16:09)
[2016-07-18 05:32] LABS: Basophils % 0.2 % (0.0-0.8); Eosinophils # 0.9 10*3/uL (0.0-0.87); Eosinophils % 5.3 % (0.00-10.9); Hematocrit 28.5 VOL% (42.0-52.0); Hemoglobin 9.2 GM/DL (14.0-18.0); Immature Granulocytes % 1.3 %; Immature Granulocytes Absolute 0.22 #; Lymphocytes # 1.9 10*3/uL (1.4-4.0); Lymphocytes % 11.6 % (21.2-54.2); Mean Corpuscular HGB Conc 32.3 GM/DL (32-36); Mean Corpuscular Hemoglobin 32 PG (27-34); Mean Corpuscular Volume 97.9 FL (87-102); Mean Platelet Volume 12.4 FL (9.6-12.0); Monocytes # 1.6 10*3/uL (0.11-0.8); Monocytes % 9.4 % (1.7-12.7); Neutrophils # 12.1 10*3/uL (1.4-7.4); Neutrophils % 72.2 % (38.7-73.9); Platelet Count 193 T/CUMM (130-400); Red Blood Count 2.91 MC/CUMM (3.8-5.5); Red Cell Distribution Width 16.8 % (9.3-17.3); White Blood Count 16.7 T/CUMM (4-12)
[2016-07-18 05:42] LABS: Calcium 10.8 MG/DL (8.5-10.1); Magnesium 2.4 MG/DL (1.8-2.4); Osmolality,Calculated 327.1 MOS/KG (273-304); Potassium 5.1 MMOL/L (3.5-5.1)
[2016-07-18] MEDS: LEVOTHYROXINE 75 MCG TABLET PO SCH (06:22)
--- NOTE | 2016-07-18 07:35 | Pulmonology Progress Note ---
Pulmonary - PN: Subj Interval history: 60-year-old male with obesity, alcohol abuse, chronic liver disease, heart disease and intermittent ventilatory requirement. Patient did well overnight and has remained off supplemental oxygen. He continues to have altered mental status and oropharyngeal secretions requiring frequent suctioning. No new concerns today. Exam (Progress Note) - Constitutional Vitals: Period Temp Pulse Resp BP Sys/Mcbride Pulse Ox Last 24 Hr 97.5 F-98.3 F 60-136 11-27 94-150/56-96 94-100 General appearance: over weight - Head Head exam: Present: normal inspection - Eye Eye exam: Present: EOMI Pupils: Present: KARLEE - Respiratory Respiratory exam: Present: rhonchi, other (significant oropharyngeal secretions) . Absent: accessory muscle use, rales, wheezes - Cardiovascular Cardiovascular exam: Present: regular rate and rhythm - GI/Abdominal GI/Abdominal exam: Present: normal bowel sounds, soft. Absent: tenderness - Extremities Exam Extremities exam: Present: normal inspection. Absent: edema - Neurological Exam Neurological exam: Present: alert, altered. Absent: oriented X3 - Skin Skin exam: Present: warm, dry Results - Labs CBC & BMP: 07/18/16 04:00 07/18/16 04:00 Assessment and Plan (1) Respiratory failure Status: Acute Assessment and plan: Ongoing with intermittent requirement for mechanical ventilation. Currently extubated and maintaining saturations on room air. Continue to monitor and provide deep suctioning for oropharyngeal secretions. Continue nebs. Current Visit: Yes (2) NICM (nonischemic cardiomyopathy) Problem details: improved EF per updated ECHO Status: Chronic Assessment and plan: No acute issues. Defer to cardiology. Current Visit: Yes (3) Hypernatremia Status: Acute Assessment and plan: Improving this morning Current Visit: Yes (4) Encephalopathy Status: Chronic Current Visit: Yes
[2016-07-18] MEDS: DILTIAZEM 30 MG TABLET PO SCH ×4 (08:51→21:51)
[2016-07-18] MEDS: LACTULOSE 20 GM/30 ML UDCUP PO SCH ×2 (08:51→21:51)
[2016-07-18] MEDS: NYSTATIN CREAM 15 GM TUBE TOP SCH ×2 (08:58→21:51)
[2016-07-18] MEDS: DESITIN 4OZ/NYSTATIN 15 GRAM MIXTURE PASTE TOP SCH ×2 (08:58→21:51)
[2016-07-18] MEDS: MIDODRINE 5 MG TABLET PO SCH ×3 (09:41→21:51)
--- NOTE | 2016-07-18 12:04 | Nephrology Progress Note ---
Nephrology - PN: Subj Interval history: The patient is resting. Serum creatinine is noted to be 1.2 which is stable. Serum sodium is continues to trend down. Exam (PN)-Nephrology - Vital Signs Vital signs: Period Temp Pulse Resp BP Sys/Mcbride Pulse Ox Last 24 Hr 97.5 F-98.3 F 60-132 11-27 94-158/56-96 94-100 - General Appearance General appearance: well-developed, well-nourished EENT: ATNC Neck: supple Respiratory: clear Cardiology: regular rate, regular rhythm Gastrointestinal: normoactive bowel sounds, no tenderness Musculoskeletal: no clubbing - Lab 07/18/16 04:00 07/18/16 04:00 Most recent lab results ABG pH 7.471 (7.35-7.45) H 07/12/16 03:25 ABG pCO2 31.4 MM HG (35-48) L 07/12/16 03:25 ABG pO2 162.3 MM HG (80-95) H 07/12/16 03:25 ABG HCO3 22.4 MMOL/L (20-26) 07/12/16 03:25 ABG O2 Saturation 98.5 % (95-100) 07/12/16 03:25 Calcium 10.8 MG/DL (8.5-10.1) H 07/18/16 04:00 Phosphorus 5.8 MG/DL (2.5-4.9) H 07/12/16 03:31 Magnesium 2.4 MG/DL (1.8-2.4) 07/18/16 04:00 Assessment and Plan (1) Hypernatremia Status: Acute Assessment and plan: Continue to increase free water flushes. Serum sodium is now 149. BMP in a.m. Current Visit: Yes (2) Hypercalcemia Status: Acute Assessment and plan: Continue to increase free water flushes. BMP in a.m. Current Visit: Yes (3) Hypertension Status: Chronic Current Visit: No (4) Acute renal failure Status: Resolved Current Visit: Yes
[2016-07-18] MEDS: MORPHINE 2 MG/1 ML SYRINGE IV PRN (14:44)
[2016-07-18] MEDS: ENOXAPARIN 40 MG/0.4 ML SYRINGE SUBCUT SCH (14:45)
--- NOTE | 2016-07-18 15:31 | Internal Med Progress Note ---
Assessment and Plan (1) Alcohol abuse Status: Chronic Current Visit: Yes (2) Ascites Status: Chronic Current Visit: Yes Qualifiers: Ascites type: due to alcoholic cirrhosis Qualified Code(s): K70.31 - Alcoholic cirrhosis of liver with ascites (3) Elevated liver enzymes Status: Chronic Current Visit: Yes (4) Failure to thrive Status: Chronic Current Visit: Yes Qualifiers: Failure to thrive age range: in adult Qualified Code(s): R62.7 - Adult failure to thrive (5) Hypotension Problem details: improved into normotensive range Status: Chronic Current Visit: Yes Qualifiers: Hypotension type: orthostatic hypotension Qualified Code(s): I95.1 - Orthostatic hypotension (6) NICM (nonischemic cardiomyopathy) Problem details: improved EF per updated ECHO Status: Chronic Current Visit : Yes (7) Obstructive sleep apnea Problem details: refusing his mask Status: Chronic Current Visit: Yes (8) Encephalopathy Status: Chronic Current Visit: Yes Internal Medicine - PN: Subj Interval history: Mr. Tracy is a 60 year old male patient of Dr. Yair Reyes with history of dilated cardiomyopathy with EF 25%, diastolic dysfunction, sinus tachy debra syndrome with pacemaker placement, DM, liver cirrhosis, alcoholism, hypothyroidism, paroxysmal atrial fibrillation, who presented to ER with profound and worsening weakness. He was found to have pancreatitis, liver failure, and possibly hepatorenal syndrome. He is in renal failure. He reported to ER that he has not been eating/drinking over several days, except for drinking alcohol. He admits to alcoholism as reported by ER. June 25, he is on ventilator support, requiring tube feedings. Still tachycardic. Seeing him again today, July 01, for Dr. Yair Reyes. He is off of ventilator support but requiring CPAP. He appears to be very frail. Failure to thrive. Consult for [facility] is pending. He is in sinus rhythm with well- controlled heart rate. Rounding on him today, July 17, and he is somnolent. Rapid heart rate, and re- starting diltiazem infusion. Awaiting detention placement. Prognosis poor. Persistent encephalopathy and failure to thrive. Tuesday, unchanged; awake, but he does not recognize me from previous rounds. On diltiazem infusion. Heart rate still uncontrolled. Exam (Progress Note) - Constitutional Vitals: Period Temp Pulse Resp BP Sys/Mcbride Pulse Ox Last 24 Hr 97.5 F-98.3 F 7-133 13-30 94-158/54-94 93-100 Exam: General appearance: no acute distress - Respiratory Respiratory exam: Present: clear to auscultation bilaterally - Cardiovascular Cardiovascular exam: Present: rapid heart rate, but regular - GI/Abdominal GI/Abdominal exam: Present: bowel sounds - Extremities Exam Extremities exam: Absent: edema - Neurological Exam Neurological exam: Present: somnolent - Skin Skin exam: Present: warm and dry Vitals reviewed. Results - Labs CBC & BMP: 07/18/16 04:00 07/18/16 04:00 Quality Measures - VTE Contraindication to Pharmacological VTE Prophylaxis: Active Bleeding
[2016-07-19] MEDS: FAMOTIDINE 20 MG/2 ML VIAL IV SCH (00:06)
[2016-07-19] MEDS: METOPROLOL TARTRATE 5 MG/5 ML VIAL IV PRN ×5 (00:06→23:09)
[2016-07-19] MEDS: INSULIN REGULAR 100 UNIT/ML SUBCUT SCH ×4 (00:06→18:08)
[2016-07-19] MEDS: LEVALBUTEROL 1.25 MG/3 ML NEB RESP TX SCH ×4 (00:41→20:12)
[2016-07-19] MEDS: ERYTHROMYCIN IV SCH ×3 (01:57→17:10)
[2016-07-19] MEDS: SODIUM CHLORIDE 0.9% IV SCH ×3 (01:57→17:10)
[2016-07-19 05:42] LABS: Basophils # 0.1 10*3/uL (0.0-0.2); Basophils % 0.3 % (0.0-0.8); Eosinophils # 0.8 10*3/uL (0.0-0.87); Eosinophils % 4.4 % (0.00-10.9); Hematocrit 30.3 VOL% (42.0-52.0); Hemoglobin 9.9 GM/DL (14.0-18.0); Immature Granulocytes % 1.2 %; Immature Granulocytes Absolute 0.22 #; Lymphocytes # 1.9 10*3/uL (1.4-4.0); Lymphocytes % 10.4 % (21.2-54.2); Mean Corpuscular HGB Conc 32.7 GM/DL (32-36); Mean Corpuscular Hemoglobin 32 PG (27-34); Mean Corpuscular Volume 96.8 FL (87-102); Mean Platelet Volume 12.6 FL (9.6-12.0); Monocytes # 1.8 10*3/uL (0.11-0.8); Monocytes % 10.3 % (1.7-12.7); Neutrophils # 13.1 10*3/uL (1.4-7.4); Neutrophils % 73.4 % (38.7-73.9); Platelet Count 196 T/CUMM (130-400); Red Blood Count 3.13 MC/CUMM (3.8-5.5); Red Cell Distribution Width 16.2 % (9.3-17.3); White Blood Count 17.9 T/CUMM (4-12)
[2016-07-19 06:07] LABS: Band Neutrophils 2 % (0-10); Eosinophils 5 % (0-10); Lymphocytes 9 % (20-55); Microcytosis 1+; Segmented Neutrophils 79 % (50-85); Total Cells Counted 100
[2016-07-19 06:08] LABS: Platelet Estimate Adequate
[2016-07-19] MEDS: LEVOTHYROXINE 75 MCG TABLET PO SCH (06:15)
[2016-07-19 06:16] LABS: Calcium 10.7 MG/DL (8.5-10.1); Magnesium 2.1 MG/DL (1.8-2.4); Osmolality,Calculated 314.4 MOS/KG (273-304); Potassium 4.6 MMOL/L (3.5-5.1)
[2016-07-19] MEDS: MORPHINE 2 MG/1 ML SYRINGE IV PRN ×2 (06:47→12:05)
[2016-07-19 07:29] LABS: Albumin 4.9 G/DL (3.4-5.0); Bilirubin,Direct 0.3 MG/DL (0.0-0.20); Bilirubin,Indirect 0.5 MG/DL (0.0-1.0); Bilirubin,Total 0.8 MG/DL (0.2-1.0); Total Protein 7.3 G/DL (6.4-8.3)
--- NOTE | 2016-07-19 07:57 | Family Practice Progress Note ---
Family Practice - PN: Subj Interval history: Patient is unchanged from a neurological standpoint. He is awake but has no verbal response to stimuli. He is being evaluated for possible PEG tube placement is getting abdominal ultrasound today. EEG showed diffuse slowing consistent with diffuse brain insult. Patient will be requiring a penitentiary bed at discharge. Exam (Progress Note) - Constitutional Vitals: Period Temp Pulse Resp BP Sys/Mcbride Pulse Ox Last 24 Hr 98.1 F-98.2 F 60-133 16-30 92-158/54-96 93-100 Exam: Objective a well-developed white male who is awake and alert. Her eyes are open and he grimaces and moans to any stimuli. He has no verbal response. NG tube is still in place. He is being evaluated for possible PEG tube is getting abdominal ultrasound today. Results - Labs CBC & BMP: 07/19/16 04:41 07/19/16 04:41 Lab Results: I have reviewed the past 24 hour labs Assessment and Plan (1) Atrial flutter Status: Resolved Assessment and plan: 06/22/2016: Heart rate still bit elevated and he appears to be in persistent flutter 06/23/2016: Persistent atrial flutter. Current Visit: No (2) Anemia Status: Chronic Assessment and plan: 06/22/2016: Hematocrit remained stable. Patient has heme positive stool. Current Visit: Yes (3) Obstructive sleep apnea Problem details: refusing his mask Status: Chronic Assessment and plan: 06/22/2016: Patient apparently refusing to wear his CPAP mask. 06/30/2016: Patient is off the ventilator and is back on his BiPAP. 07/01/2016: Patient is tolerating BiPAP. Current Visit: Yes (4) Acute pancreatitis Status: Resolved Assessment and plan: 06/22/2016: Patient's pancreatitis has resolved. Current Visit: Yes Qualifiers: Pancreatitis type: alcohol induced (5) Aspiration pneumonitis Status: Resolved Assessment and plan: 06/23/2016: Have ordered 40 of Lasix. Blood cultures have been ordered. Will ask pulmonary to see as well. 06/28/2016: Patient is doing well in the event, is not tolerating weaning and will probably need LTAC. 06/29/2016: Patient is slowly improving. Will consult behavioral health case manager for LTAC. 06/30/2016: Patient is now off the ventilator. He will need long-term care facility. His long-term prognosis is very poor 07/01/2016: Patient's chest x-ray is improved this morning. Patient will require LTAC. Current Visit: Yes (6) Encephalopathy Status: Chronic Assessment and plan: 07/05/2016: Patient's encephalopathy persists. Patient is going to require long- term care and 's been consulted if his insurance will cooperate. 07/06/2016: Patient's neuro status is unchanged. 07/07/2016: Patient's neuro status is unchanged. I have asked Dr. Garcia to see him concerning his persistent encephalopathy. 07/19/2016: Patient's neuro status is unchanged. PEG tube placement is being considered and he will need a penitentiary bed. Current Visit: Yes (7) Respiratory arrest Status: Suspected Assessment and plan: 07/06/2016: Patient's chest x-ray is much improved. He certainly had extensive mucous plugging in his right chest. 07/07/2016: Patient is stable with ventilator support. Hopefully he can be weaned from the ventilator soon. His has made him a DNR. Current Visit: Yes Quality Measures - VTE Contraindication to Pharmacological VTE Prophylaxis: Active Bleeding
--- NOTE | 2016-07-19 08:22 | XRay Report ---
Portable chest Date: 07/19/2016 Clinical history: Shortness of breath Comparison: 07/15/2016 Technique: Portable AP sitting chest Findings: Stable cardiomegaly and left subclavian atrioventricular pacemaker, nasogastric tube, and right arm PICC line. Persistent diffuse parenchymal findings especially at the lung bases. Residual relative elevation of the right hemidiaphragm with stable right small pleural effusion. The mediastinum and osseous structures are stable in appearance. Impression: No significant change in the appearance of the chest when compared to the previous exam. PROCEDURE INTERPRETED AT [facility] DEPARTMENT OF RADIOLOGY Final Report Signed by: Dr. Susan Lawrence
--- NOTE | 2016-07-19 08:34 | Cardiology Progress Note ---
Amor Ramos Vanessa, RN, am scribing for, and in the presence of, Greg Reyes MD 08:34. Assessment and Plan - Time spent with patient Time spent with patient: Greater than 30 minutes (1) Atrial flutter with rapid ventricular response Status: Acute Assessment and plan: Pulse rate 120s and suboptimally controlled this morning with IV Cardizem at 15 mg/hr. Atrial pacing per tele monitoring. Current Visit: Yes (2) Paroxysmal atrial fibrillation Status: Chronic Assessment and plan: He is not anticoagulated due to previous significant anemia requiring blood transfusion. Echocardiogram this admission LV ejection fraction 60%, grade 1/4 diastolic dysfunction, moderate TR with PA pressure 40-45 mmHg. Current Visit: Yes (3) CHF (congestive heart failure) Status: Acute Assessment and plan: Clinically, he appears to be overall well compensated at this time. LV ejection fraction is 60% with mild diastolic dysfunction per echocardiogram on 06/16. Current Visit: No Qualifiers: Qualified Code(s): I50.23 - Acute on chronic systolic (congestive) heart failure (4) Hypertension Status: Chronic Assessment and plan: Stable and well controlled at this time. Continue current regimen. Current Visit: No (5) Anemia Status: Chronic Assessment and plan: H&H remained stable. Currently, he is not anticoagulated for stroke prevention due to severe anemia and has been transfused with a total of 5 units packed red blood cells this admission. Current Visit: Yes (6) Alcohol abuse Status: Chronic Current Visit: Yes (7) Alcoholic cirrhosis Status: Chronic Current Visit: Yes (8) Obesity Status: Chronic Current Visit: Yes (9) Obstructive sleep apnea Problem details: refusing his mask Status: Chronic Current Visit: Yes (10) Failure to thrive Status: Chronic Current Visit: Yes Qualifiers: Qualified Code(s): R62.7 - Adult failure to thrive Cardiology - PN: Subj Interval history: HEARING AIDE TECHNICIAN: DR. CONLEY (last seen in 2013) PCP: DR. BOONE Mr. Tracy is a 60 year old male who has not followed with Dr. Conley since 2013. Past medical history includes anxiety, atrial fibrillation, diabetes, hypertension, psoriasis, tachybradycardia syndrome status post dual- chamber pacemaker placement, obstructive sleep apnea (noncompliant), hyperlipidemia, EtOH abuse. Risk factors are significant for: Diabetes, hyperlipidemia, hypertension, obesity, sedentary lifestyle. He was admitted to the hospital on June 15, 2016 and found to have pancreatitis, liver failure, and hepatorenal syndrome. He has been seen by gastroenterology, sleep medicine , nephrology. He required intubation for several days and has been extubated and is now on oxygen via nasal cannula. He has been minimally responsive and neurology has been following his encephalopathy. He is now arousable to verbal stimuli but will not follow commands. We were initially consulted to see him due to refractory tachycardia. We followed him and treated his atrial flutter w/ RVR for several days. He was being maintained on PO Cardizem in addition to Vitamin C and electrolyte replacement therapy and we subsequently signed off on 07/09/16. On 07/14/16, he went back into atrial fibrillation with rapid ventricular response and we were reconsulted. He was placed back on IV Cardizem and we have been attempting to control his heart rate. Overall, Mr. Tracy has a very poor prognosis. JULY 19, 2016: Mr. Tracy remains in the ICU this morning. IV Cardizem was restarted yesterday afternoon after recurrence of atrial flutter with RVR, pulse rate 130s. He remains in atrial flutter with pulse rate 11-115 with atrial pacing noted. IV Cardizem at 15 mg/hr and IV Lopressor PRN is being given. Electrolytes are within normal limits this morning. He remains obtunded and not responsive. No acute distress at this time though. 07/19: Patient continues with A. fib now rate controlled with intravenous Cardizem. He continues unresponsive to verbal stimuli which is not a change for him. He does fix and follow and likely this is related to his encephalopathy. Nothing new from a cardiac standpoint we will continue following Exam (Progress Note) - Constitutional Vitals: Period Temp Pulse Resp BP Sys/Mcbride Pulse Ox Last 24 Hr 98.1 F-98.2 F 60-133 16-30 92-158/54-96 93-100 Exam: General appearance: Patient is using supplemental oxygen via nasal cannula. No acute distress but moving around. He is still obtunded/encephalopathic. HEENT: Normocephalic. NG tube is in place. Neck: Trachea is in midline. Lungs: Anteriorly with coarse breath sounds but overall good air movement. No wheeze, stridor, accessory muscle use Cardiovascular: Regular rhythm. No gross murmur. Abdomen: Soft bowel sounds present nondistended. No tenderness or mass Extremities:No edema, warm, dry Neurologic: obtunded and encephlopathic. Result/EKG - Labs CBC & BMP: 07/19/16 04:41 07/19/16 04:41 Lab Results: I have reviewed the past 24 hour labs Labs: Laboratory Results - last 24 hr 07/18/16 07/18/16 07/18/16 11:35 18:06 23:25 WBC RBC Hgb Hct MCV MCH MCHC RDW Plt Count MPV Neut % (Auto) Lymph % (Auto) [place] % (Auto) Eos % (Auto) Baso % (Auto) Neut # (Auto) Lymph # (Auto) [place] # (Auto) Eos # (Auto) Baso # (Auto) Total Counted Immature Gran % Nucleated RBC % Immature Gran # Segmented Neutrophils Band Neutrophils Lymphocytes Monocytes Eosinophils Nucleated RBCs # Platelet Estimate Microcytosis Sodium Potassium Chloride Carbon Dioxide Anion Gap BUN Creatinine GFR Calculation BUN/Creatinine Ratio Glucose POC Glucose 138 H 125 H 122 H Calculated Osmolality Calcium Magnesium Total Bilirubin Direct Bilirubin Indirect Bilirubin AST ALT Alkaline Phosphatase Total Protein Albumin Digoxin 07/19/16 07/19/16 07/19/16 04:41 04:41 04:41 WBC 17.9 H RBC 3.13 L Hgb 9.9 L Hct 30.3 L MCV 96.8 MCH 32 MCHC 32.7 RDW 16.2 Plt Count 196 MPV 12.6 H Neut % (Auto) 73.4 Lymph % (Auto) 10.4 L [place] % (Auto) 10.3 Eos % (Auto) 4.4 Baso % (Auto) 0.3 Neut # (Auto) 13.1 H Lymph # (Auto) 1.9 [place] # (Auto) 1.8 H Eos # (Auto) 0.8 Baso # (Auto) 0.1 Total Counted 100 Immature Gran % 1.2 Nucleated RBC % 0.0 Immature Gran # 0.22 Segmented Neutrophils 79 Band Neutrophils 2 Lymphocytes 9 L Monocytes 5 Eosinophils 5 Nucleated RBCs # 0.00 Platelet Estimate Adequate Microcytosis 1+ Sodium 147 H Potassium 4.6 Chloride 115 H Carbon Dioxide 22 Anion Gap 14.6 BUN 74 H Creatinine 0.90 GFR Calculation 117 BUN/Creatinine Ratio 82.00 H Glucose 122 H POC Glucose Calculated Osmolality 314.4 H Calcium 10.7 H Magnesium 2.1 Total Bilirubin Direct Bilirubin Indirect Bilirubin AST ALT Alkaline Phosphatase Total Protein Albumin Digoxin 1.20 07/19/16 07/19/16 05:00 05:52 WBC RBC Hgb Hct MCV MCH MCHC RDW Plt Count MPV Neut % (Auto) Lymph % (Auto) [place] % (Auto) Eos % (Auto) Baso % (Auto) Neut # (Auto) Lymph # (Auto) [place] # (Auto) Eos # (Auto) Baso # (Auto) Total Counted Immature Gran % Nucleated RBC % Immature Gran # Segmented Neutrophils Band Neutrophils Lymphocytes Monocytes Eosinophils Nucleated RBCs # Platelet Estimate Microcytosis Sodium Potassium Chloride Carbon Dioxide Anion Gap BUN Creatinine GFR Calculation BUN/Creatinine Ratio Glucose POC Glucose 129 H Calculated Osmolality Calcium Magnesium Total Bilirubin 0.80 Direct Bilirubin 0.30 H Indirect Bilirubin 0.5 AST 26 ALT 20 Alkaline Phosphatase 64 Total Protein 7.3 Albumin 4.9 Digoxin - EKG EKG results: interpreted by me, no acute changes Quality Measures - VTE Contraindication to Pharmacological VTE Prophylaxis: Active Bleeding IEric Wesley, MD, personally performed the services described in this documentation, ascribed by Alice Chinchilla RN in my presence, and it is both accurate and complete 834 .
--- NOTE | 2016-07-19 08:34 | Pulmonology Progress Note ---
Pulmonary - PN: Subj Interval history: Patient is a 60-year-old white man that is in very poor condition with obesity and chronic liver disease and heart disease. He was having more respiratory distress yesterday and had to be intubated. He was on the ventilator for several days but yesterday he was extubated. He has been breathing fairly well but he does require some suctioning. Over the weekend he had some arrhythmias with atrial fibrillation but is back in sinus rhythm now. Yesterday he developed more respiratory distress and dropped his O2 saturations. He has continued to have trouble clearing his secretions. He ultimately had to be reintubated yesterday. He developed complete atelectasis of his right lung. We did do a therapeutic bronchoscopy and clear secretions. His chest x-ray has improved nicely. The patient has remained fairly stable over the weekend. He is responsive but does not follow commands. He has still required a Cardizem infusion for his atrial fib /flutter. He has not had any respiratory distress. He is probably getting a PEG tube today. Exam (Progress Note) - Constitutional Vitals: Period Temp Pulse Resp BP Sys/Mcbride Pulse Ox Last 24 Hr 98.2 F-98.2 F 60-133 16-30 92-144/54-96 93-97 Exam: General appearance: no distress (He is comfortable on low-flow oxygen but does grimace but is not alert. He will look around but does not follow commands. He does not have labored breathing.) - Head Head exam: Present: normal inspection, normocephalic - Eye Eye exam: Present: EOMI. Absent: scleral icterus Pupils: Present: KARLEE - ENT ENT exam: Present: other (Patient has a very narrow hypopharynx) he does have an NG tube in place. - Neck Neck exam: Present: other (Patient does have a large neck). Absent: lymphadenopathy, thyromegaly - Respiratory Respiratory exam: Present: He has fairly good air movement bilaterally and does not have any increased rales or wheezing. - Cardiovascular Cardiovascular exam: Present: His heart rate is fairly regular and paced at the present time. He has no loud murmur or gallop. - GI/Abdominal GI/Abdominal exam: Present: Hypoactive bowel sounds, soft, other (Abdomen is large). Absent: organomegaly, tenderness - Extremities Exam Extremities exam: Absent: calf tenderness, edema, he will move his extremities but is very weak. - Neurological Exam Neurological exam: Present: altered (Patient will grimace and moan and look around but does not follow commands.) - Psychiatric Psychiatric exam: Present: He will open eyes but does not do anything to follow commands. - Skin Skin exam: Present: warm, dry Results - Labs CBC & BMP: 07/19/16 04:41 07/19/16 04:41 - Diagnostic Findings Procedure: Chest x-ray: image reviewed by me, report reviewed by me (Chest x- ray shows cardiomegaly but no infiltrates or CHF.) Assessment and Plan (1) NICM (nonischemic cardiomyopathy) Problem details: improved EF per updated ECHO Status: Chronic Assessment and plan: The patient does have cardiomegaly and has had a component of heart failure that is better. He is not in heart failure but still has atrial flutter. Current Visit: Yes (2) Paroxysmal atrial fibrillation Status: Chronic Assessment and plan: The patient is back on Cardizem infusion for his atrial fibrillation. Current Visit: Yes (3) Obstructive sleep apnea Problem details: refusing his mask Status: Chronic Assessment and plan: Patient is doing okay off the ventilator and he is using CPAP. He seems to be tolerating his CPAP fairly well. Current Visit: Yes (4) Alcoholic cirrhosis Status: Chronic Assessment and plan: Patient does have improvement in his liver test and his bilirubin is down to 1.0. He still has a significant encephalopathy but is stable. Current Visit: Yes (5) Aspiration pneumonitis Status: Resolved Assessment and plan: Patient has marked improvement in his chest x-ray and his pneumonia is much better. Clinically his lungs have cleared up nicely. He is not having any respiratory difficulty now and can move to a telemetry room at any time. Current Visit: Yes (6) Acute renal failure Status: Resolved Assessment and plan: His renal function is slightly better and his lab work looks a little better with IV fluids. His sodium is 147 and his creatinine is down to 0.9. His calcium is stable at 10.7. Current Visit: Yes
[2016-07-19] MEDS: DILTIAZEM 30 MG TABLET PO SCH ×4 (09:00→21:27)
[2016-07-19] MEDS: MIDODRINE 5 MG TABLET PO SCH ×3 (09:00→21:28)
[2016-07-19] MEDS: DEXTROSE 5% 1,000 ML IV SCH (09:02)
[2016-07-19] MEDS: LACTULOSE 20 GM/30 ML UDCUP PO SCH ×2 (09:05→21:28)
[2016-07-19] MEDS: DESITIN 4OZ/NYSTATIN 15 GRAM MIXTURE PASTE TOP SCH ×2 (09:05→21:28)
[2016-07-19] MEDS: NYSTATIN CREAM 15 GM TUBE TOP SCH ×2 (09:05→21:28)
--- NOTE | 2016-07-19 09:20 | Ultrasound Report ---
History: Cirrhosis. Abdominal distention Date: 07/19/2016 Study: Abdominal ultrasound Limited Comparison exam: June 16, 2016 renal ultrasound Real-time ultrasound images were captured and archived. There is no evidence of ascites in any of the 4 quadrants. Impression: No evidence of ascites PROCEDURE INTERPRETED AT [facility] DEPARTMENT OF RADIOLOGY Final Report Signed by: Dr. Susan Ray
--- NOTE | 2016-07-19 12:10 | Nephrology Progress Note ---
Nephrology - PN: Subj Interval history: He is awake but does not follow commands. Exam (PN)-Nephrology - Vital Signs Vital signs: Period Temp Pulse Resp BP Sys/Mcbride Pulse Ox Last 24 Hr 97.3 F-98.2 F 60-133 16-30 92-144/54-96 93-100 Exam: ENT: Normal Cardiovascular: Regular rate and rhythm. No murmur rub or gallop Lungs: Clear Extremities: No edema - Lab 07/19/16 04:41 07/19/16 04:41 Most recent lab results ABG pH 7.471 (7.35-7.45) H 07/12/16 03:25 ABG pCO2 31.4 MM HG (35-48) L 07/12/16 03:25 ABG pO2 162.3 MM HG (80-95) H 07/12/16 03:25 ABG HCO3 22.4 MMOL/L (20-26) 07/12/16 03:25 ABG O2 Saturation 98.5 % (95-100) 07/12/16 03:25 Calcium 10.7 MG/DL (8.5-10.1) H 07/19/16 04:41 Phosphorus 5.8 MG/DL (2.5-4.9) H 07/12/16 03:31 Magnesium 2.1 MG/DL (1.8-2.4) 07/19/16 04:41 Assessment and Plan (1) Acute renal failure Status: Resolved Assessment and plan: 60-year-old man admitted with: * ARF. Resolved. I will sign off. Please recall as needed * Hypercalcemia. Improved. Continue hydration * Anemia. * Chronic liver disease * History of hypertension * Paroxysmal A. fib * Cardiomyopathy * Ethanol abuse * Peptic ulcer disease Current Visit: Yes (2) Anemia Status: Chronic Current Visit: Yes (3) Hypotension Problem details: improved into normotensive range Status: Chronic Current Visit: Yes Qualifiers: Hypotension type: orthostatic hypotension Qualified Code(s): I95.1 - Orthostatic hypotension (4) Obstructive sleep apnea Problem details: refusing his mask Status: Chronic Current Visit: Yes (5) Alcohol abuse Status: Chronic Current Visit: Yes (6) Ascites Status: Chronic Current Visit: Yes Qualifiers: Ascites type: due to alcoholic cirrhosis Qualified Code(s): K70.31 - Alcoholic cirrhosis of liver with ascites (7) NICM (nonischemic cardiomyopathy) Problem details: improved EF per updated ECHO Status: Chronic Current Visit : Yes (8) Paroxysmal atrial fibrillation Status: Chronic Current Visit: Yes
[2016-07-19] MEDS ORDERED: DIGOXIN 0.125 MG TABLET PO ONE (13:00)
--- NOTE | 2016-07-19 13:21 | Gastrointestinal Progress Note ---
Assessment and Plan (1) Anemia Status: Chronic Assessment and plan: 07/16-hemoglobin stable at 9.6 no reports of overt bleeding. Plan an addendum to follow by Dr. Ray. 06/23-Hgb 11.2, no overt bleeding. Plan and addendum to follow by Dr Ray. 06/22-Hgb 9.7, no overt bleeding. No pressor support. Continue to monitor for bleeding and HH. Plan and addendum to follow by Dr Ray 06/21-hemoglobin down at 8.6 today. Receiving 2 units of blood. No overt bleeding. Continue to monitor H&H. Plan an addendum to followed by Dr. Ray. 06/18-Hgb stable at 9.2 w/o overt bleeding. PICC line placed today. Pressor support started. EGD findings noted. Continue to monitor HH and transfuse as needed. Plan and addendum to follow by Dr Ray. 06/16-Findings on admission of hgb 7.8, no reports of overt bleeding. No known prior endoscopy. Noted to be on Eliquis prior to admission for A-fib, held at present time. Continue to monitor HH. Plan and addendum to follow by Dr Ray. Current Visit: Yes (2) Dysphagia Status: Acute Assessment and plan: 07/19-ultrasound with no findings of ascites. Has tolerated tube feedings over the weekend. Plan for potential PEG tube placement tomorrow. Plan an addendum to follow Dr. Ray per 07/16-patient remains obtunded, unable to take in oral nutrition. Receiving NG feedings. For long-term care placement upon discharge. Reconsult for possible PEG placement prior to discharge. Plan an addendum to followed by Dr. Ray. Current Visit: Yes Gastroenterology - PN: Subj Interval history: CC: Anemia/dysphagia Patient is seen, asleep, does not arouse to verbal or tactile stimuli. He had abdominal ultrasound this morning that showed no evidence of ascites. He is currently receiving a Cardizem infusion for his atrial free of/flutter. He has had no respiratory distress since extubation and tolerating his supplemental oxygen. He is reported to have improvement in his chest x-ray by pulmonary. Abdomen soft, nontender. ROS: No acute distress at present time. Exam (Progress Note) - Constitutional Vitals: Period Temp Pulse Resp BP Sys/Mcbride Pulse Ox Last 24 Hr 97.3 F-98.2 F 60-133 16-25 92-138/56-96 94-100 - Other Additional findings: General appearance: no acute distress, over weight - Head Head exam: Present: normal inspection, normocephalic - Eye Eye exam: Present: other (Lids and conjunctive are unremarkable). Absent: scleral icterus - ENT ENT exam: Present: normal exam, normal oropharynx - Neck Neck exam: Present: normal inspection - Respiratory Respiratory exam: Present: clear to auscultation bilaterally. Absent: rales, rhonchi, wheezes - Cardiovascular Cardiovascular exam: Present: regular rate and rhythm. Absent: diastolic murmur , JVD, systolic murmur - GI/Abdominal GI/Abdominal exam: Present: normal bowel sounds, soft. Absent: ascites, distended, mass, organomegaly, tenderness - Extremities Exam Extremities exam: Present: normal inspection - Back Exam Back exam: Present: normal inspection - Neurological Exam Neurological exam: Present: altered - Psychiatric Psychiatric exam: Present: other - Skin Skin exam: Present: normal color, warm, dry Results - Labs CBC & BMP: 07/19/16 04:41 07/19/16 04:41 Lab Results: I have reviewed the past 24 hour labs - Diagnostic Findings Procedure: Ultrasound: report reviewed by me
--- NOTE | 2016-07-19 15:20 | General Surgery Consult Note ---
Assessment and Plan - Time spent with patient Time spent with patient: Less than 30 minutes (1) Onychomycosis of multiple toenails with type 1 diabetes mellitus Status: Acute Assessment and plan: Impression. 1. Enlarged long toenails of both lower extremities probably secondary to fungal infection Plan: Trim these toenails and start some local wound care to the legs. Current Visit: Yes History of Present Illness Chief complaint: Long enlarged thickened toenails History of present illness: Mr. Tracy is a 60 year old male white who we will consult to see because of his long thickened toenails that are potentially causing some skin injuries to his legs. We will plan to try to trim them while he is in the unit are on the floor. He has multiple medical problems that have been slowly resolving or improving to some degree. Certainly do not know what the vascular status of his lower extremities are we will see if we can get these nails trimmed. Home Medications Medication Instructions Recorded Confirmed Type Apixaban [Eliquis] 5 mg PO BID #60 tablet 12/18/15 06/15/16 Rx Aspirin Chew Tab 81 mg PO DAILY tablet 12/18/15 06/15/16 Rx Diltiazem Cd Cap [Cardizem CD] 180 mg PO DAILY #30 capsule 12/18/15 06/15/16 Rx Furosemide Tab [Lasix Tab] 40 mg PO BID DIURETIC #60 tablet 12/18/15 06/15/16 Rx Losartan [Cozaar] 25 mg PO DAILY #30 tablet 12/18/15 06/15/16 Rx Magnesium Oxide 800 mg PO BID #60 tablet 12/18/15 06/15/16 Rx Nitroglycerin Sl Tab [Nitrostat] 0.4 mg SL Q5M PRN #30 tablet 12/18/15 06/15/16 Rx Sotalol [Betapace] 80 mg PO BID #60 tablet 12/18/15 06/15/16 Rx Spironolactone [Aldactone] 50 mg PO DAILY #30 tablet 12/18/15 06/15/16 Rx Furosemide [Lasix] 40 mg PO BID 06/15/16 06/15/16 History Levothyroxine Tab [Synthroid Tab] 75 mcg PO DAILY@0700 06/15/16 06/15/16 History Potassium Chloride 20 meq PO BID 06/15/16 06/15/16 History Allergies Allergy/AdvReac Type Severity Reaction Status Date / Time lorazepam [From Ativan] AdvReac Severe Anxiety Verified 06/16/16 19:31 Medical,Surgical,& Family Hx - Medical History Cardio: History of: Cardiac Dysrhythmia (atrial fib flutter with tachybradycardia syndrome; pacemaker placement), CHF (with preserved ejection fraction), Hypertension, Pacemaker Psychological: History of: Depression Neurology: History of: TIA Endocrine: History of: Diabetes Mellitus (NIDDM) Rheumatology: History of;: Psoriasis Respiratory: History of: Obstructive Sleep Apnea Renal: History of: Renal Problems (chronic renal insufficiency) Gastrointestinal: History of: Liver Problems (cirrhosis) Musculoskeletal: History of: Musculoskeletal Problems (WEAK IN LOWER EXTREMITIES ) Hematology: History of: Anemia (chronic disease and illness), Blood Transfusion Reaction (NO REACTION) - Surgical History Cardiac Surgeries: Sugical HX of: Internal Defibrillator (pacemaker) - Family History Family History: Reports;: Family Diabetes (MOTHER), Family Heart Disease, Family Hypertension (MOTHER), Family Psychiatric Problems (MOTHER) - Social History Smoking Status: Former smoker Frequency of Alcohol Use: Frequently Type of Drug Use: None 12 point system: reviewed and no additional remarkable complaints except as stated Exam - Constitutional Vitals: Period Temp Pulse Resp BP Sys/Mcbride Pulse Ox Last 24 Hr 97.3 F-98.2 F 60-129 16-23 92-138/56-96 95-100 General appearance: mild distress - Head Head exam: Present: normal inspection - Neck Neck exam: Present: normal inspection - Respiratory Respiratory exam: Present: rales, rhonchi - Cardiovascular Cardiovascular exam: Present: RRR - GI/Abdominal GI/Abdominal exam: Present: hypoactive bowel sounds, soft - Extremities Exam Extremities exam: Present: other (Both lower extremities have mild amount of edematous changes but otherwise no unusual swelling or cellulitis present. Toenails are extremely long and sharp at this time with some degree of thickening) - Back Exam Back exam: Present: normal inspection - Neurological Exam Neurological exam: Present: alert, oriented X3, CN II-XII intact - Skin Skin exam: Present: normal color, warm, dry Quality Measures - VTE Contraindication to Pharmacological VTE Prophylaxis: Active Bleeding Results - Labs CBC & BMP: 07/19/16 04:41 07/19/16 04:41 Lab Results: I have reviewed the past 24 hour labs
[2016-07-20] MEDS: LEVALBUTEROL 1.25 MG/3 ML NEB RESP TX SCH ×4 (00:40→19:26)
[2016-07-20] MEDS: INSULIN REGULAR 100 UNIT/ML SUBCUT SCH ×4 (00:45→17:30)
[2016-07-20] MEDS: ERYTHROMYCIN IV SCH ×3 (00:45→16:42)
[2016-07-20] MEDS: FAMOTIDINE 20 MG/2 ML VIAL IV SCH (00:45)
[2016-07-20] MEDS: SODIUM CHLORIDE 0.9% IV SCH ×3 (00:45→16:42)
[2016-07-20 04:58] LABS: Basophils # 0.1 10*3/uL (0.0-0.2); Basophils % 0.3 % (0.0-0.8); Eosinophils # 0.8 10*3/uL (0.0-0.87); Eosinophils % 5.1 % (0.00-10.9); Hematocrit 31.3 VOL% (42.0-52.0); Hemoglobin 10.1 GM/DL (14.0-18.0); Immature Granulocytes % 1.3 %; Immature Granulocytes Absolute 0.21 #; Lymphocytes # 2.2 10*3/uL (1.4-4.0); Lymphocytes % 13.5 % (21.2-54.2); Mean Corpuscular HGB Conc 32.3 GM/DL (32-36); Mean Corpuscular Hemoglobin 31 PG (27-34); Mean Corpuscular Volume 96.3 FL (87-102); Mean Platelet Volume 12.8 FL (9.6-12.0); Monocytes # 1.5 10*3/uL (0.11-0.8); Monocytes % 8.9 % (1.7-12.7); Neutrophils # 11.6 10*3/uL (1.4-7.4); Neutrophils % 70.9 % (38.7-73.9); Platelet Count 191 T/CUMM (130-400); Red Blood Count 3.25 MC/CUMM (3.8-5.5); Red Cell Distribution Width 15.9 % (9.3-17.3); White Blood Count 16.4 T/CUMM (4-12)
[2016-07-20 05:00] LABS: INR 1.2; PT Patient Result 12.3 SECS
[2016-07-20 05:11] LABS: Calcium 10.3 MG/DL (8.5-10.1); Osmolality,Calculated 302.7 MOS/KG (273-304); Potassium 4.5 MMOL/L (3.5-5.1)
[2016-07-20] MEDS: DEXTROSE 5% 1,000 ML IV SCH ×3 (05:38→16:39)
[2016-07-20] MEDS: LEVOTHYROXINE 75 MCG TABLET PO SCH (06:55)
--- NOTE | 2016-07-20 07:35 | Family Practice Progress Note ---
Family Practice - PN: Subj Interval history: Patient had a good night according to the nursing staff. His sensorium is unchanged. He is scheduled for PEG tube placement today and hopefully we can find a long term for him shortly thereafter. Regretfully his sensorium is not clearing. Exam (Progress Note) - Constitutional Vitals: Period Temp Pulse Resp BP Sys/Mcbride Pulse Ox Last 24 Hr 97.0 F-97.9 F 60-124 13-22 103-138/59-88 95-100 Exam: Objective a well-developed white male who is awake and alert. Her eyes are open and he grimaces and moans to any stimuli. He has no verbal response. NG tube is still in place. He is scheduled for PEG tube placement today. Cardiovascular: Heart rates regular without murmurs or gallops. Respiratory: Lungs clear to auscultation bilaterally. Abdomen: Abdomen soft and nontender to palpation. Results - Labs CBC & BMP: 07/20/16 04:23 07/20/16 04:23 Lab Results: I have reviewed the past 24 hour labs Assessment and Plan (1) Atrial flutter Status: Resolved Assessment and plan: 06/22/2016: Heart rate still bit elevated and he appears to be in persistent flutter 06/23/2016: Persistent atrial flutter. Current Visit: No (2) Anemia Status: Chronic Assessment and plan: 06/22/2016: Hematocrit remained stable. Patient has heme positive stool. Current Visit: Yes (3) Obstructive sleep apnea Problem details: refusing his mask Status: Chronic Assessment and plan: 06/22/2016: Patient apparently refusing to wear his CPAP mask. 06/30/2016: Patient is off the ventilator and is back on his BiPAP. 07/01/2016: Patient is tolerating BiPAP. Current Visit: Yes (4) Acute pancreatitis Status: Resolved Assessment and plan: 06/22/2016: Patient's pancreatitis has resolved. Current Visit: Yes Qualifiers: Pancreatitis type: alcohol induced (5) Aspiration pneumonitis Status: Resolved Assessment and plan: 06/23/2016: Have ordered 40 of Lasix. Blood cultures have been ordered. Will ask pulmonary to see as well. 06/28/2016: Patient is doing well in the event, is not tolerating weaning and will probably need LTAC. 06/29/2016: Patient is slowly improving. Will consult director case management for LTAC. 06/30/2016: Patient is now off the ventilator. He will need long-term care facility. His long-term prognosis is very poor 07/01/2016: Patient's chest x-ray is improved this morning. Patient will require LTAC. Current Visit: Yes (6) Encephalopathy Status: Chronic Assessment and plan: 07/05/2016: Patient's encephalopathy persists. Patient is going to require long- term care and [facility]'s been consulted if his insurance will cooperate. 07/06/2016: Patient's neuro status is unchanged. 07/07/2016: Patient's neuro status is unchanged. I have asked Dr. Garcia to see him concerning his persistent encephalopathy. 07/19/2016: Patient's neuro status is unchanged. PEG tube placement is being considered and he will need a long term bed. 07/20/2016: Patient scheduled for PEG tube placement today and long term placement follow. Current Visit: Yes (7) Respiratory arrest Status: Suspected Assessment and plan: 07/06/2016: Patient's chest x-ray is much improved. He certainly had extensive mucous plugging in his right chest. 07/07/2016: Patient is stable with ventilator support. Hopefully he can be weaned from the ventilator soon. His has made him a DNR. Current Visit: Yes Quality Measures - VTE Contraindication to Pharmacological VTE Prophylaxis: Active Bleeding
--- NOTE | 2016-07-20 07:48 | Pulmonology Progress Note ---
Pulmonary - PN: Subj Interval history: Patient is a 60-year-old white man that is in very poor condition with obesity and chronic liver disease and heart disease. He had been on and off the ventilator for the last several weeks. He has been doing a little better with his breathing. He does use CPAP during the night. He is still severely encephalopathic and unable to follow commands. He is getting a PEG tube today. He will probably go to a senior living soon. Exam (Progress Note) - Constitutional Vitals: Period Temp Pulse Resp BP Sys/Mcbride Pulse Ox Last 24 Hr 97.0 F-97.9 F 60-124 13-22 103-138/59-88 95-100 Exam: General appearance: no distress (He is comfortable on CPAP at the present time.) - Head Head exam: Present: normal inspection, normocephalic - Eye Eye exam: Present: EOMI. Absent: scleral icterus Pupils: Present: KARLEE - ENT ENT exam: Present: other (Patient has a very narrow hypopharynx) he does have an NG tube in place. - Neck Neck exam: Present: other (Patient does have a large neck). Absent: lymphadenopathy, thyromegaly - Respiratory Respiratory exam: Present: He has fairly good air movement bilaterally and does not have any increased rales or wheezing. He still has some scattered rhonchi. - Cardiovascular Cardiovascular exam: Present: His heart rate is fairly regular and paced at the present time. He has no loud murmur or gallop. - GI/Abdominal GI/Abdominal exam: Present: Hypoactive bowel sounds, soft, other (Abdomen is large). Absent: organomegaly, tenderness - Extremities Exam Extremities exam: Absent: calf tenderness, edema, he will move his extremities but is very weak. - Neurological Exam Neurological exam: Present: altered (Patient will grimace and moan and look around but does not follow commands.) - Psychiatric Psychiatric exam: Present: He is still poorly responsive. - Skin Skin exam: Present: warm, dry Results - Labs CBC & BMP: 07/20/16 04:23 07/20/16 04:23 Assessment and Plan (1) NICM (nonischemic cardiomyopathy) Problem details: improved EF per updated ECHO Status: Chronic Assessment and plan: The patient does have cardiomegaly and has had a component of heart failure that is better. He is not in heart failure but still has atrial flutter. His blood pressure has been stable. Current Visit: Yes (2) Paroxysmal atrial fibrillation Status: Chronic Assessment and plan: The patient has a controlled heart rate at present. Current Visit: Yes (3) Obstructive sleep apnea Problem details: refusing his mask Status: Chronic Assessment and plan: Patient is doing okay off the ventilator and he is using CPAP. He seems to be tolerating his CPAP fairly well. Current Visit: Yes (4) Alcoholic cirrhosis Status: Chronic Assessment and plan: Patient does have improvement in his liver test and his bilirubin is down to 0.8. He still has a significant encephalopathy but is stable. Current Visit: Yes (5) Aspiration pneumonitis Status: Resolved Assessment and plan: Patient has marked improvement in his chest x-ray and his pneumonia is much better. Clinically his lungs have cleared up nicely. He is not having any respiratory difficulty now and is probably going for a PEG tube today. Current Visit: Yes (6) Acute renal failure Status: Resolved Assessment and plan: His renal function is slightly better and his lab work looks a little better with IV fluids. His sodium is 145 and his creatinine is down to 0.8. His calcium is stable at 10.3. Current Visit: Yes
--- NOTE | 2016-07-20 08:18 | Cardiology Progress Note ---
Amor Ramos Vanessa, RN, am scribing for, and in the presence of, Greg Reyes MD 08:18. Assessment and Plan - Time spent with patient Time spent with patient: Greater than 30 minutes (1) Atrial flutter with rapid ventricular response Status: Acute Assessment and plan: Pulse rate more controlled this morning with IV Cardizem at 10 mg/hr. Atrial pacing per tele monitoring. Current Visit: Yes (2) Paroxysmal atrial fibrillation Status: Chronic Assessment and plan: He is not anticoagulated due to previous significant anemia requiring blood transfusion. Echocardiogram this admission LV ejection fraction 60%, grade 1/4 diastolic dysfunction, moderate TR with PA pressure 40-45 mmHg. Current Visit: Yes (3) CHF (congestive heart failure) Status: Acute Assessment and plan: Clinically, he appears to be overall well compensated at this time. LV ejection fraction is 60% with mild diastolic dysfunction per echocardiogram on 06/16. Current Visit: No Qualifiers: Congestive heart failure type: systolic Congestive heart failure chronicity : acute on chronic Qualified Code(s): I50.23 - Acute on chronic systolic ( congestive) heart failure (4) Hypertension Status: Chronic Assessment and plan: Stable and well controlled at this time. Continue current regimen. Current Visit: No (5) Anemia Status: Chronic Assessment and plan: H&H remained stable. Currently, he is not anticoagulated for stroke prevention due to severe anemia and has been transfused with a total of 5 units packed red blood cells this admission. Current Visit: Yes (6) Alcohol abuse Status: Chronic Current Visit: Yes (7) Alcoholic cirrhosis Status: Chronic Current Visit: Yes (8) Obesity Status: Chronic Current Visit: Yes (9) Obstructive sleep apnea Problem details: refusing his mask Status: Chronic Current Visit: Yes (10) Failure to thrive Status: Chronic Current Visit: Yes Qualifiers: Failure to thrive age range: in adult Qualified Code(s): R62.7 - Adult failure to thrive Cardiology - PN: Subj Interval history: [employer] STOCK: DR. CONLEY (last seen in 2013) PCP: DR. BOONE Mr. Tracy is a 60 year old male who has not followed with Dr. Conley since 2013. Past medical history includes anxiety, atrial fibrillation, diabetes, hypertension, psoriasis, tachybradycardia syndrome status post dual- chamber pacemaker placement, obstructive sleep apnea (noncompliant), hyperlipidemia, EtOH abuse. Risk factors are significant for: Diabetes, hyperlipidemia, hypertension, obesity, sedentary lifestyle. He was admitted to the hospital on June 15, 2016 and found to have pancreatitis, liver failure, and hepatorenal syndrome. He has been seen by gastroenterology, sleep medicine , nephrology. He required intubation for several days and has been extubated and is now on oxygen via nasal cannula. He has been minimally responsive and neurology has been following his encephalopathy. He is now arousable to verbal stimuli but will not follow commands. We were initially consulted to see him due to refractory tachycardia. We followed him and treated his atrial flutter w/ RVR for several days. He was being maintained on PO Cardizem in addition to Vitamin C and electrolyte replacement therapy and we subsequently signed off on 07/09/16. On 07/14/16, he went back into atrial fibrillation with rapid ventricular response and we were reconsulted. He was placed back on IV Cardizem and we have been attempting to control his heart rate. Overall, Mr. Tracy has a very poor prognosis. JULY 20, 2016: Mr. Tracy remains in the ICU this morning under close observation. He is somewhat more alert and will turn head toward verbal stimuli and track but does not offer verbal response or follow commands. Remains in atrial flutter with overall controlled pulse rate 80s-90s. No overt ectopy or arrhythmia per monitoring. Systolic BP 120-130 mmHg. IV Cardizem infusion is at 10 mg/hr this morning. H/H stable, electrolytes within acceptable range. Patient is scheduled for PEG tube placement later today in preparation for tentative discharge to snf. Patient continues to be encephalopathic with normal pressures in A. fib at rates that are in the 80-90 range. His prognosis is poor. Exam (Progress Note) - Constitutional Vitals: Period Temp Pulse Resp BP Sys/Mcbride Pulse Ox Last 24 Hr 97.0 F-97.9 F 60-124 13-22 103-138/59-88 95-100 Exam: General appearance: No acute distress but moving around,overweight. He is still obtunded/encephalopathic. HEENT: Normocephalic. NG tube is in place. Neck: Trachea is in midline. Lungs: Anteriorly with coarse breath sounds but overall good air movement. No wheeze, stridor, accessory muscle use Cardiovascular: Iregular rhythm. No gross murmur. Abdomen: Soft bowel sounds present nondistended. No tenderness or mass Extremities:No edema, warm, dry Neurologic: obtunded and encephlopathic. Result/EKG - Labs CBC & BMP: 07/20/16 04:23 07/20/16 04:23 Lab Results: I have reviewed the past 24 hour labs Labs: Laboratory Results - last 24 hr 07/19/16 07/19/16 07/20/16 11:23 18:07 04:23 WBC RBC Hgb Hct MCV MCH MCHC RDW Plt Count MPV Neut % (Auto) Lymph % (Auto) [place] % (Auto) Eos % (Auto) Baso % (Auto) Neut # (Auto) Lymph # (Auto) [place] # (Auto) Eos # (Auto) Baso # (Auto) Immature Gran % Nucleated RBC % Immature Gran # Nucleated RBCs # INR 1.2 PT Patient/Control Mix 12.3 Sodium Potassium Chloride Carbon Dioxide Anion Gap BUN Creatinine GFR Calculation BUN/Creatinine Ratio Glucose POC Glucose 132 H 102 Calculated Osmolality Calcium Magnesium 07/20/16 07/20/16 04:23 04:23 WBC 16.4 H RBC 3.25 L Hgb 10.1 L Hct 31.3 L MCV 96.3 MCH 31 MCHC 32.3 RDW 15.9 Plt Count 191 MPV 12.8 H Neut % (Auto) 70.9 Lymph % (Auto) 13.5 L [place] % (Auto) 8.9 Eos % (Auto) 5.1 Baso % (Auto) 0.3 Neut # (Auto) 11.6 H Lymph # (Auto) 2.2 [place] # (Auto) 1.5 H Eos # (Auto) 0.8 Baso # (Auto) 0.1 Immature Gran % 1.3 Nucleated RBC % 0.0 Immature Gran # 0.21 Nucleated RBCs # 0.00 INR PT Patient/Control Mix Sodium 145 Potassium 4.5 Chloride 114 H Carbon Dioxide 19 L Anion Gap 16.5 H BUN 52 H D Creatinine 0.80 GFR Calculation 123 BUN/Creatinine Ratio 65.00 H Glucose 110 H POC Glucose Calculated Osmolality 302.7 Calcium 10.3 H Magnesium 2.0 - EKG EKG results: interpreted by me, no acute changes (atrial flutter) Quality Measures - VTE Contraindication to Pharmacological VTE Prophylaxis: Active Bleeding I, Greg Reyes MD, personally performed the services described in this documentation, ascribed by Alice Chinchilla RN in my presence, and it is both accurate and complete .
[2016-07-20] MEDS: DILTIAZEM 30 MG TABLET PO SCH ×4 (08:54→21:31)
[2016-07-20] MEDS: MIDODRINE 5 MG TABLET PO SCH ×3 (08:54→21:32)
[2016-07-20] MEDS: LACTULOSE 20 GM/30 ML UDCUP PO SCH ×2 (08:55→21:31)
[2016-07-20] MEDS: NYSTATIN CREAM 15 GM TUBE TOP SCH ×2 (08:55→21:31)
[2016-07-20] MEDS: DESITIN 4OZ/NYSTATIN 15 GRAM MIXTURE PASTE TOP SCH ×2 (08:55→21:32)
[2016-07-20] MEDS ORDERED: SODIUM CHLORIDE 0.9% 100 ML IV ONE (12:24)
[2016-07-20] MEDS ORDERED: ceFAZolin 1,000 MG VIAL ONE (12:24)
--- NOTE | 2016-07-20 12:43 | History and Physical Update ---
History and Physical Update - History and Physical H&P was reviewed, the patient examined and there: are no changes in the patients condition since last H&P was completed. - Physical Exam Mental Status: other (Awake, nonresponse) Heart: regular rate and rhythm Lung: clear to auscultation Abdomen: within normal limits Vitals: within normal limits
[2016-07-20] MEDS ORDERED: LIDOCAINE 2% 5 ML VIAL ONE (12:50)
[2016-07-20] MEDS ORDERED: PROPOFOL 200 MG/20 ML VIAL IV ONE (12:50)
--- NOTE | 2016-07-20 13:07 | Operative Note ---
Date of procedure: 07/20/16 Pre-op diagnosis: Inability to eat, nutritional support Procedure: Procedure: Esophagogastroduodenoscopy with percutaneous endoscopic gastrostomy tube placement Brief clinical abstract: Patient is a 60-year-old male with cirrhosis who has had prolonged hospital course with pneumonia. He appears to have anoxic encephalopathy and is unable to eat. We are asked to place PEG tube placement for nutritional support with possible referral to long-term care facility. Indication for procedure: Inability to eat, nutritional support Endoscopic findings:[After informed consent was obtained, the patient was placed in the left lateral decubitus position. The gastroscope was inserted in the upper esophagus under direct vision with no resistance encountered. Esophageal mucosa appeared normal. No varices were seen. Squamocolumnar junction was sharply demarcated above a small hiatal hernia. The endoscope was advanced in the stomach which was carefully examined including retroflexed view of the cardia and fundus with no abnormality seen. The pyloric channel, duodenal bulb, second and third portion of the duodenum were normal. The endoscope was withdrawn back into the stomach. Site for gastrostomy tube placement was selected external indentation and endoscopic transillumination. Sterile field was created over the anterior abdomen at the site. 5 cc of 1% lidocaine was injected subcutaneously down to the gastric wall. An approximately 5 mm superficial transverse incision was made with scalpel. Then Cook [address] [place] gastrostomy tube was placed with pull technique without difficulty. The tube was secured at 3 cm dayne on skin surface with external bumper applied at that level. A dressing was applied at the site afterwards. He appeared to tolerate the procedure well. Impression: #1 small hiatal hernia-otherwise normal EGD #2 status post successful PEG tube placement Recommendations: May start giving medicines through PEG tube today. Would start tube feedings tomorrow morning as per dietary/nutrition recommendations. Anesthesia: MAC, local Surgeon / Physician: Darryl Ray Estimated blood loss: minimal (3-5 cc) Specimens: none sent Condition: stable Disposition: post procedure unit Results - Labs CBC & BMP: 07/20/16 04:23 07/20/16 04:23 Discharge Plan - Discharge Medications No Action Apixaban [Eliquis] 5 mg PO BID #60 tablet Aspirin Chew Tab 81 mg PO DAILY tablet Losartan [Cozaar] 25 mg PO DAILY #30 tablet Magnesium Oxide 800 mg PO BID #60 tablet Nitroglycerin Sl Tab [Nitrostat] 0.4 mg SL Q5M PRN #30 tablet PRN Reason: Chest Pain Sotalol [Betapace] 80 mg PO BID #60 tablet Spironolactone [Aldactone] 50 mg PO DAILY #30 tablet Diltiazem Cd Cap [Cardizem CD] 180 mg PO DAILY #30 capsule Furosemide Tab [Lasix Tab] 40 mg PO BID DIURETIC #60 tablet Levothyroxine Tab [Synthroid Tab] 75 mcg PO DAILY@0700 Furosemide [Lasix] 40 mg PO BID Potassium Chloride 20 meq PO BID - Follow Up or Referral - Forms/Instructions
--- NOTE | 2016-07-20 13:16 | Anesthesia Post-Op ---
Anesthesia Post OP - Post Ansesthetic Evaluation Patient seen in post op: Yes Resp: within normal limits CV: within normal limits Mental: within normal limits Temp: within normal limits [id number]: within normal limits Nausea and Vomiting: within normal limits Pain: within normal limits
[2016-07-20] MEDS: METOPROLOL TARTRATE 5 MG/5 ML VIAL IV PRN (20:25)
[2016-07-20] MEDS: KETOCONAZOLE 2% SHAMPOO 120 ML BOTTLE TOP SCH (21:33)
[2016-07-21] MEDS: FAMOTIDINE 20 MG/2 ML VIAL IV SCH (00:24)
[2016-07-21] MEDS: INSULIN REGULAR 100 UNIT/ML SUBCUT SCH ×4 (00:24→18:29)
[2016-07-21] MEDS: SODIUM CHLORIDE 0.9% IV SCH ×3 (01:01→16:39)
[2016-07-21] MEDS: ERYTHROMYCIN IV SCH ×3 (01:01→16:39)
[2016-07-21] MEDS: LEVALBUTEROL 1.25 MG/3 ML NEB RESP TX SCH ×4 (01:32→20:12)
[2016-07-21 06:05] LABS: Basophils % 0.2 % (0.0-0.8); Eosinophils # 0.5 10*3/uL (0.0-0.87); Hematocrit 26.8 VOL% (42.0-52.0); Hemoglobin 8.9 GM/DL (14.0-18.0); Immature Granulocytes % 1.1 %; Immature Granulocytes Absolute 0.15 #; Lymphocytes # 1.8 10*3/uL (1.4-4.0); Lymphocytes % 13.5 % (21.2-54.2); Mean Corpuscular HGB Conc 33.2 GM/DL (32-36); Mean Corpuscular Hemoglobin 31 PG (27-34); Mean Corpuscular Volume 93.4 FL (87-102); Mean Platelet Volume 12.3 FL (9.6-12.0); Monocytes # 1.3 10*3/uL (0.11-0.8); Monocytes % 9.7 % (1.7-12.7); Neutrophils # 9.5 10*3/uL (1.4-7.4); Neutrophils % 71.5 % (38.7-73.9); Platelet Count 177 T/CUMM (130-400); Red Blood Count 2.87 MC/CUMM (3.8-5.5); Red Cell Distribution Width 15.7 % (9.3-17.3); White Blood Count 13.3 T/CUMM (4-12)
[2016-07-21 06:28] LABS: Eosinophils 7 % (0-10); Lymphocytes 16 % (20-55); Segmented Neutrophils 69 % (50-85); Total Cells Counted 100
[2016-07-21 06:29] LABS: Hypochromasia 1+; Microcytosis Slight; Ovalocytes Slight; Platelet Estimate Normal
[2016-07-21 06:30] LABS: Calcium 10.1 MG/DL (8.5-10.1); Magnesium 1.6 MG/DL (1.8-2.4); Potassium 3.9 MMOL/L (3.5-5.1)
[2016-07-21] MEDS: MAGNESIUM SULF RIDER 2 GM in PREMIX 1 EACH IV PRN (06:41)
[2016-07-21] MEDS: LEVOTHYROXINE 75 MCG TABLET PO SCH (07:02)
--- NOTE | 2016-07-21 07:20 | Family Practice Progress Note ---
Family Practice - PN: Subj Interval history: Patient had a good night according the nursing staff but is still on IV Cardizem. He is more alert this morning and makes eye contact. Speech is still unintelligible but he does appear to be trying to talk. At home he was going to have to go to the alf today and I am uncertain if he understood. I will add metoprolol to his present medications. Exam (Progress Note) - Constitutional Vitals: Period Temp Pulse Resp BP Sys/Mcbride Pulse Ox Last 24 Hr 97.7 F-98.2 F 70-114 11-22 82-133/51-80 97-100 Exam: Objective a well-developed white male who is awake and alert. He is more alert this morning makes eye contact. He is trying to speak but I cannot understand him. Cardiovascular: Irregular rate without murmurs or gallops. Respiratory: Lungs clear to auscultation bilaterally. Abdomen: Abdomen soft and nontender to palpation. Results - Labs CBC & BMP: 07/21/16 05:44 07/21/16 05:44 Lab Results: I have reviewed the past 24 hour labs Assessment and Plan (1) Atrial flutter Status: Resolved Assessment and plan: 06/22/2016: Heart rate still bit elevated and he appears to be in persistent flutter 06/23/2016: Persistent atrial flutter. 07/21/2016: Atrial flutter persists. His rate is controlled but still requiring IV Cardizem. Current Visit: No (2) Anemia Status: Chronic Assessment and plan: 06/22/2016: Hematocrit remained stable. Patient has heme positive stool. Current Visit: Yes (3) Obstructive sleep apnea Problem details: refusing his mask Status: Chronic Assessment and plan: 06/22/2016: Patient apparently refusing to wear his CPAP mask. 06/30/2016: Patient is off the ventilator and is back on his BiPAP. 07/01/2016: Patient is tolerating BiPAP. Current Visit: Yes (4) Acute pancreatitis Status: Resolved Assessment and plan: 06/22/2016: Patient's pancreatitis has resolved. Current Visit: Yes Qualifiers: Pancreatitis type: alcohol induced (5) Aspiration pneumonitis Status: Resolved Assessment and plan: 06/23/2016: Have ordered 40 of Lasix. Blood cultures have been ordered. Will ask pulmonary to see as well. 06/28/2016: Patient is doing well in the event, is not tolerating weaning and will probably need LTAC. 06/29/2016: Patient is slowly improving. Will consult trimming caser for LTAC. 06/30/2016: Patient is now off the ventilator. He will need long-term care facility. His long-term prognosis is very poor 07/01/2016: Patient's chest x-ray is improved this morning. Patient will require LTAC. Current Visit: Yes (6) Encephalopathy Status: Chronic Assessment and plan: 07/05/2016: Patient's encephalopathy persists. Patient is going to require long- term care and [facility]'s been consulted if his insurance will cooperate. 07/06/2016: Patient's neuro status is unchanged. 07/07/2016: Patient's neuro status is unchanged. I have asked Dr. Garcia to see him concerning his persistent encephalopathy. 07/19/2016: Patient's neuro status is unchanged. PEG tube placement is being considered and he will need a alf bed. 07/20/2016: Patient scheduled for PEG tube placement today and alf placement follow. 07/21/2016: Patient is more alert today and makes eye contact. Current Visit: Yes (7) Respiratory arrest Status: Suspected Assessment and plan: 07/06/2016: Patient's chest x-ray is much improved. He certainly had extensive mucous plugging in his right chest. 07/07/2016: Patient is stable with ventilator support. Hopefully he can be weaned from the ventilator soon. His has made him a DNR. Current Visit: Yes Quality Measures - VTE Contraindication to Pharmacological VTE Prophylaxis: Active Bleeding
[2016-07-21] MEDS: MIDODRINE 5 MG TABLET PO SCH ×4 (07:26→20:58)
--- NOTE | 2016-07-21 07:43 | Pulmonology Progress Note ---
Pulmonary - PN: Subj Interval history: Patient is a 60-year-old white man that is in very poor condition with obesity and chronic liver disease and heart disease. He had been on and off the ventilator for the last several weeks. He has been doing a little better with his breathing. He does use CPAP during the night. He is still severely encephalopathic and unable to follow commands. He did get his PEG tube yesterday and did okay with that. This morning he seems comfortable lying in bed. He is still not able to follow commands. He looks like he may be at baseline now. He will probably go to a correction soon. Exam (Progress Note) - Constitutional Vitals: Period Temp Pulse Resp BP Sys/Mcbride Pulse Ox Last 24 Hr 97.7 F-98.2 F 66-114 11-22 82-133/51-80 97-100 Exam: General appearance: no distress (He is comfortable on CPAP at the present time. He is not having any respiratory distress.) - Head Head exam: Present: normal inspection, normocephalic - Eye Eye exam: Present: EOMI. Absent: scleral icterus Pupils: Present: KARLEE - ENT ENT exam: Present: other (Patient has a very narrow hypopharynx) - Neck Neck exam: Present: other (Patient does have a large neck). Absent: lymphadenopathy, thyromegaly - Respiratory Respiratory exam: Present: He has fairly good air movement bilaterally is moving air well without any definite wheezing. - Cardiovascular Cardiovascular exam: Present: His heart rate is fairly regular and paced at the present time. He has no loud murmur or gallop. - GI/Abdominal GI/Abdominal exam: Present: His abdomen is soft and nontender and he has a PEG tube in place. - Extremities Exam Extremities exam: Absent: calf tenderness, edema, he will move his extremities but is very weak. - Neurological Exam Neurological exam: Present: altered (Patient will grimace and moan and look around but does not follow commands.) - Psychiatric Psychiatric exam: Present: He is still poorly responsive. - Skin Skin exam: Present: warm, dry Results - Labs CBC & BMP: 07/21/16 05:44 07/21/16 05:44 Assessment and Plan (1) NICM (nonischemic cardiomyopathy) Problem details: improved EF per updated ECHO Status: Chronic Assessment and plan: The patient does have cardiomegaly and has had a component of heart failure that is better. He is not in heart failure but still has atrial flutter. His heart rate is under good control and he has an adequate blood pressure. Current Visit: Yes (2) Paroxysmal atrial fibrillation Status: Chronic Assessment and plan: The patient has a controlled heart rate at present. Current Visit: Yes (3) Obstructive sleep apnea Problem details: refusing his mask Status: Chronic Assessment and plan: Patient is doing okay off the ventilator and he is using CPAP. He seems to be tolerating his CPAP fairly well. Current Visit: Yes (4) Alcoholic cirrhosis Status: Chronic Assessment and plan: Patient does have improvement in his liver test and his bilirubin is down to 0.8. He still has a significant encephalopathy but is stable. Current Visit: Yes (5) Aspiration pneumonitis Status: Resolved Assessment and plan: Patient has marked improvement in his chest x-ray and his pneumonia is much better. Clinically his lungs have cleared up nicely. Overall his breathing is quite stable. Current Visit: Yes (6) Acute renal failure Status: Resolved Assessment and plan: His renal function is slightly better and his lab work looks a little better with IV fluids. His sodium is 143 and his creatinine is down to 0.8. His calcium is stable at 10.1. Current Visit: Yes
[2016-07-21] MEDS: DILTIAZEM 30 MG TABLET PO SCH ×4 (08:23→20:58)
[2016-07-21] MEDS: LACTULOSE 20 GM/30 ML UDCUP PO SCH ×2 (08:23→20:59)
[2016-07-21] MEDS: DEXTROSE 5% 1,000 ML IV SCH (08:24)
[2016-07-21] MEDS: METOPROLOL TARTRATE 25 MG TABLET PO SCH ×2 (08:24→20:58)
[2016-07-21] MEDS: DESITIN 4OZ/NYSTATIN 15 GRAM MIXTURE PASTE TOP SCH ×2 (08:25→20:59)
[2016-07-21] MEDS: NYSTATIN CREAM 15 GM TUBE TOP SCH ×2 (08:25→20:59)
--- NOTE | 2016-07-21 10:28 | Cardiology Progress Note ---
Amor Ramos Vanessa, RN, am scribing for, and in the presence of, Greg Reyes MD 10:28. Assessment and Plan - Time spent with patient Time spent with patient: Greater than 30 minutes (1) Atrial flutter with rapid ventricular response Status: Acute Assessment and plan: Pulse rate well controlled at this time. Atrial pacing noted. Continue current plan of care. Current Visit: Yes (2) Paroxysmal atrial fibrillation Status: Chronic Assessment and plan: He is not anticoagulated due to previous significant anemia requiring blood transfusion. Echocardiogram this admission LV ejection fraction 60%, grade 1/4 diastolic dysfunction, moderate TR with PA pressure 40-45 mmHg. Current Visit: Yes (3) CHF (congestive heart failure) Status: Acute Assessment and plan: Clinically, he appears to be overall well compensated at this time. LV ejection fraction is 60% with mild diastolic dysfunction per echocardiogram on 06/16. Current Visit: No Qualifiers: Congestive heart failure type: systolic Congestive heart failure chronicity : acute on chronic Qualified Code(s): I50.23 - Acute on chronic systolic ( congestive) heart failure (4) Hypertension Status: Chronic Assessment and plan: Stable and well controlled at this time. Continue current regimen. Current Visit: No (5) Anemia Status: Chronic Assessment and plan: H&H remained stable. Currently, he is not anticoagulated for stroke prevention due to severe anemia and has been transfused with a total of 5 units packed red blood cells this admission. Current Visit: Yes (6) Alcohol abuse Status: Chronic Current Visit: Yes (7) Alcoholic cirrhosis Status: Chronic Current Visit: Yes (8) Obesity Status: Chronic Current Visit: Yes (9) Obstructive sleep apnea Problem details: refusing his mask Status: Chronic Current Visit: Yes (10) Failure to thrive Status: Chronic Current Visit: Yes Qualifiers: Failure to thrive age range: in adult Qualified Code(s): R62.7 - Adult failure to thrive Cardiology - PN: Subj Interval history: SPOOL CARRIER: DR. CONLEY (last seen in 2013) PCP: DR. BOONE Mr. Tracy is a 60 year old male who has not followed with Dr. Conley since 2013. Past medical history includes anxiety, atrial fibrillation, diabetes, hypertension, psoriasis, tachybradycardia syndrome status post dual- chamber pacemaker placement, obstructive sleep apnea (noncompliant), hyperlipidemia, EtOH abuse. Risk factors are significant for: Diabetes, hyperlipidemia, hypertension, obesity, sedentary lifestyle. He was admitted to the hospital on June 15, 2016 and found to have pancreatitis, liver failure, and hepatorenal syndrome. He has been seen by gastroenterology, sleep medicine , nephrology. He required intubation for several days and has been extubated and is now on oxygen via nasal cannula. He has been minimally responsive and neurology has been following his encephalopathy. He is now arousable to verbal stimuli but will not follow commands. We were initially consulted to see him due to refractory tachycardia. We followed him and treated his atrial flutter w/ RVR for several days. He was being maintained on PO Cardizem in addition to Vitamin C and electrolyte replacement therapy and we subsequently signed off on 07/09/16. On 07/14/16, he went back into atrial fibrillation with rapid ventricular response and we were reconsulted. He was placed back on IV Cardizem and we have been attempting to control his heart rate. Overall, Mr. Tracy has a very poor prognosis. JULY 21, 2016: Mr. Tracy remains in ICU this morning, closely observed. Status post PEG tube placement yesterday per Dr. Ray and did well. No acute changes or findings in hemodynamics overnight. Remains in atrial flutter/fib with pulse rate 60s-70s, atrially pacing at times. BP stable. Plan is for discharge soon to halfway. Labs reviewed. Decreased H/H 8.9 & 26.8 (10.1 & 31.3 07/20). K + 3.9. Mg+ 1.6. Magnesium repleted with 2 gm IV mag sulfate this morning. Patient is stable clinically and for transfer to nursing Center when available. Exam (Progress Note) - Constitutional Vitals: Period Temp Pulse Resp BP Sys/Mcbride Pulse Ox Last 24 Hr 97.7 F-98.0 F 66-114 11-22 94-135/53-80 97-100 Exam: General appearance: No acute distress but moving around,overweight. He is still obtunded/encephalopathic. HEENT: Normocephalic. NG tube is in place. Neck: Trachea is in midline. Lungs: Anteriorly with coarse breath sounds but overall good air movement. No wheeze, stridor, accessory muscle use Cardiovascular: Irregular rhythm. No gross murmur. Abdomen: Soft bowel sounds present nondistended. No tenderness or mass Extremities:No edema, warm, dry Neurologic: obtunded and encephlopathic. Result/EKG - Labs CBC & BMP: 07/21/16 05:44 07/21/16 05:44 Lab Results: I have reviewed the past 24 hour labs Labs: Laboratory Results - last 24 hr 07/19/16 07/20/16 07/20/16 23:19 05:08 11:17 WBC RBC Hgb Hct MCV MCH MCHC RDW Plt Count MPV Neut % (Auto) Lymph % (Auto) [place] % (Auto) Eos % (Auto) Baso % (Auto) Neut # (Auto) Lymph # (Auto) [place] # (Auto) Eos # (Auto) Baso # (Auto) Total Counted Immature Gran % Nucleated RBC % Immature Gran # Segmented Neutrophils Lymphocytes Monocytes Eosinophils Basophils Nucleated RBCs # Platelet Estimate Hypochromasia Microcytosis Ovalocytes Morphology Comment Sodium Potassium Chloride Carbon Dioxide Anion Gap BUN Creatinine GFR Calculation BUN/Creatinine Ratio Glucose POC Glucose 126 H 124 H 122 H Calculated Osmolality Calcium Magnesium 07/20/16 07/20/16 07/21/16 17:27 23:47 05:44 WBC 13.3 H RBC 2.87 L Hgb 8.9 L Hct 26.8 L MCV 93.4 MCH 31 MCHC 33.2 RDW 15.7 Plt Count 177 MPV 12.3 H Neut % (Auto) 71.5 Lymph % (Auto) 13.5 L [place] % (Auto) 9.7 Eos % (Auto) 4.0 Baso % (Auto) 0.2 Neut # (Auto) 9.5 H Lymph # (Auto) 1.8 [place] # (Auto) 1.3 H Eos # (Auto) 0.5 Baso # (Auto) 0.0 Total Counted 100 Immature Gran % 1.1 Nucleated RBC % 0.0 Immature Gran # 0.15 Segmented Neutrophils 69 Lymphocytes 16 L Monocytes 6 Eosinophils 7 Basophils 2.0 H Nucleated RBCs # 0.00 Platelet Estimate Normal Hypochromasia 1+ Microcytosis Slight Ovalocytes Slight Morphology Comment Sodium Potassium Chloride Carbon Dioxide Anion Gap BUN Creatinine GFR Calculation BUN/Creatinine Ratio Glucose POC Glucose 130 H 128 H Calculated Osmolality Calcium Magnesium 07/21/16 07/21/16 05:44 05:48 WBC RBC Hgb Hct MCV MCH MCHC RDW Plt Count MPV Neut % (Auto) Lymph % (Auto) [place] % (Auto) Eos % (Auto) Baso % (Auto) Neut # (Auto) Lymph # (Auto) [place] # (Auto) Eos # (Auto) Baso # (Auto) Total Counted Immature Gran % Nucleated RBC % Immature Gran # Segmented Neutrophils Lymphocytes Monocytes Eosinophils Basophils Nucleated RBCs # Platelet Estimate Hypochromasia Microcytosis Ovalocytes Morphology Comment Sodium 143 Potassium 3.9 Chloride 113 H Carbon Dioxide 18 L Anion Gap 15.9 H BUN 35 H Creatinine 0.80 GFR Calculation 123 BUN/Creatinine Ratio 43.00 H Glucose 109 H POC Glucose 103 Calculated Osmolality 293.0 Calcium 10.1 Magnesium 1.6 L - EKG EKG results: interpreted by me, no acute changes (atrial flutter 70s-80s; atrial pacing ) Quality Measures - VTE Contraindication to Pharmacological VTE Prophylaxis: Active Bleeding Eric Ramos Wesley, MD, personally performed the services described in this documentation, ascribed by Alice Chinchilla RN in my presence, and it is both accurate and complete .
--- NOTE | 2016-07-21 11:25 | Gastrointestinal Progress Note ---
Assessment and Plan (1) Dysphagia Status: Acute Assessment and plan: 07/21-Post PEG, tolerating feedings well. Plan and addendum to follow by Dr Ray. 07/19-ultrasound with no findings of ascites. Has tolerated tube feedings over the weekend. Plan for potential PEG tube placement tomorrow. Plan an addendum to follow Dr. Ray 07/16-patient remains obtunded, unable to take in oral nutrition. Receiving NG feedings. For long-term care placement upon discharge. Reconsult for possible PEG placement prior to discharge. Plan an addendum to followed by Dr. Ray. Current Visit: Yes Gastroenterology - PN: Subj Interval history: CC: Failure to thrive Pt is seen with eyes open but does not respond to commands however he is making eye contact and attempts to mouth words when spoken to. He is post peg placement on yesterday with no signs of redness, drainage or bleeding at side. Feedings have been initiated and are tolerating these well. Abdomen is soft, nontender. ROS: Denies SOB or chest pain Exam (Progress Note) - Constitutional Vitals: Period Temp Pulse Resp BP Sys/Mcbride Pulse Ox Last 24 Hr 97.7 F-98.0 F 66-114 11-22 94-135/53-83 97-100 - Other Additional findings: General appearance: no acute distress, over weight - Head Head exam: Present: normal inspection, normocephalic - Eye Eye exam: Present: other (Lids and conjunctive are unremarkable). Absent: scleral icterus - ENT ENT exam: Present: normal exam, normal oropharynx - Neck Neck exam: Present: normal inspection - Respiratory Respiratory exam: Present: clear to auscultation bilaterally. Absent: rales, rhonchi, wheezes - Cardiovascular Cardiovascular exam: Present: regular rate and rhythm. Absent: diastolic murmur , JVD, systolic murmur - GI/Abdominal GI/Abdominal exam: Present: normal bowel sounds, soft. Absent: ascites, distended, mass, organomegaly, tenderness - Extremities Exam Extremities exam: Present: normal inspection - Back Exam Back exam: Present: normal inspection - Neurological Exam Neurological exam: Present: altered - Psychiatric Psychiatric exam: Present: other - Skin Skin exam: Present: normal color, warm, dry Results - Labs CBC & BMP: 07/21/16 05:44 07/21/16 05:44 Lab Results: I have reviewed the past 24 hour labs
[2016-07-22] MEDS: INSULIN REGULAR 100 UNIT/ML SUBCUT SCH ×4 (00:15→19:00)
[2016-07-22] MEDS: FAMOTIDINE 20 MG/2 ML VIAL IV SCH (00:17)
[2016-07-22] MEDS: SODIUM CHLORIDE 0.9% IV SCH ×3 (00:17→18:51)
[2016-07-22] MEDS: ERYTHROMYCIN IV SCH ×3 (00:17→18:51)
[2016-07-22] MEDS: LEVALBUTEROL 1.25 MG/3 ML NEB RESP TX SCH ×4 (00:39→19:28)
[2016-07-22] MEDS: DEXTROSE 5% 1,000 ML IV SCH ×3 (02:46→22:36)
[2016-07-22 05:39] LABS: Basophils % 0.2 % (0.0-0.8); Eosinophils # 0.7 10*3/uL (0.0-0.87); Eosinophils % 5.2 % (0.00-10.9); Hematocrit 25.3 VOL% (42.0-52.0); Hemoglobin 8.7 GM/DL (14.0-18.0); Immature Granulocytes % 1.4 %; Lymphocytes % 14.2 % (21.2-54.2); Mean Corpuscular HGB Conc 34.4 GM/DL (32-36); Mean Corpuscular Hemoglobin 32 PG (27-34); Mean Platelet Volume 12.1 FL (9.6-12.0); Monocytes # 1.5 10*3/uL (0.11-0.8); Monocytes % 10.6 % (1.7-12.7); Neutrophils # 9.7 10*3/uL (1.4-7.4); Neutrophils % 68.4 % (38.7-73.9); Platelet Count 188 T/CUMM (130-400); Red Blood Count 2.72 MC/CUMM (3.8-5.5); Red Cell Distribution Width 15.7 % (9.3-17.3); White Blood Count 14.1 T/CUMM (4-12)
[2016-07-22 05:58] LABS: Calcium 9.9 MG/DL (8.5-10.1); Magnesium 1.9 MG/DL (1.8-2.4); Osmolality,Calculated 290.1 MOS/KG (273-304); Potassium 4.1 MMOL/L (3.5-5.1)
[2016-07-22 06:00] LABS: Phosphorous 4.2 MG/DL (2.5-4.9); Prealbumin 22.5 MG/DL (20-40)
[2016-07-22 06:06] LABS: Hypochromasia 1+; Platelet Estimate Normal
[2016-07-22 06:07] LABS: Microcytosis Slight
[2016-07-22] MEDS: LEVOTHYROXINE 75 MCG TABLET PO SCH (06:15)
[2016-07-22] MEDS ORDERED: SODIUM CHLORIDE 0.9% 250 ML IV PRN (06:53)
--- NOTE | 2016-07-22 07:07 | Pulmonology Progress Note ---
Pulmonary - PN: Subj Interval history: Patient is a 60-year-old white man that is in very poor condition with obesity and chronic liver disease and heart disease. He had been on and off the ventilator for the last several weeks. He has been doing a little better with his breathing. He does use CPAP during the night. He is still severely encephalopathic and unable to follow commands. He did get his PEG tube yesterday and did okay with that. This morning he seems comfortable lying in bed. He is not wearing oxygen and his O2 saturation is adequate. He is looking around but still does not follow commands. He is tolerating his feedings okay. His heart rate is better. He can move to a regular room today. Exam (Progress Note) - Constitutional Vitals: Period Temp Pulse Resp BP Sys/Mcbride Pulse Ox Last 24 Hr 97.4 F-97.8 F 66-130 13-24 90-135/56-85 94-100 Exam: General appearance: no distress (He is comfortable with no oxygen on at the present time.) - Head Head exam: Present: normal inspection, normocephalic - Eye Eye exam: Present: EOMI. Absent: scleral icterus Pupils: Present: KARLEE - ENT ENT exam: Present: other (Patient has a very narrow hypopharynx) - Neck Neck exam: Present: other (Patient does have a large neck). Absent: lymphadenopathy, thyromegaly - Respiratory Respiratory exam: Present: He has fairly good air movement bilaterally is moving air well without any definite wheezing. - Cardiovascular Cardiovascular exam: Present: His heart rate is irregular but controlled. He has no gallop rhythm. - GI/Abdominal GI/Abdominal exam: Present: His abdomen is soft and nontender and he has a PEG tube in place. - Extremities Exam Extremities exam: Absent: calf tenderness, edema, he will move his extremities but is very weak. - Neurological Exam Neurological exam: Present: altered (Patient will grimace and moan and look around but does not follow commands.) - Psychiatric Psychiatric exam: Present: He is more awake but still does not follow commands. - Skin Skin exam: Present: warm, dry Results - Labs CBC & BMP: 07/22/16 04:30 07/22/16 04:30 Assessment and Plan (1) NICM (nonischemic cardiomyopathy) Problem details: improved EF per updated ECHO Status: Chronic Assessment and plan: The patient does have cardiomegaly and has had a component of heart failure that is better. He is not in heart failure but still has atrial flutter. His heart rate is under good control and he has an adequate blood pressure. He certainly seems to be stable hemodynamically. Current Visit: Yes (2) Paroxysmal atrial fibrillation Status: Chronic Assessment and plan: The patient has a controlled heart rate at present. We will stop his Cardizem infusion and he can move to a regular room. Current Visit: Yes (3) Obstructive sleep apnea Problem details: refusing his mask Status: Chronic Assessment and plan: Patient is doing okay off the ventilator and he is using CPAP. He seems to be tolerating his CPAP fairly well. Current Visit: Yes (4) Alcoholic cirrhosis Status: Chronic Assessment and plan: Patient does have improvement in his liver test and his bilirubin is down to 0.8. He still has a significant encephalopathy but is stable. Current Visit: Yes (5) Aspiration pneumonitis Status: Resolved Assessment and plan: Patient has marked improvement in his chest x-ray and his pneumonia is much better. Clinically his lungs have cleared up nicely. Overall his breathing is quite stable. He has done well from a pulmonary standpoint and I will sign off. Current Visit: Yes (6) Acute renal failure Status: Resolved Assessment and plan: His renal function is slightly better and his lab work looks a little better with IV fluids. His sodium is 142 and his creatinine is down to 0.7. His calcium is stable at 9.9. Current Visit: Yes
[2016-07-22 07:11] LABS: % Iron Saturation 26.2 % (18-50)
--- NOTE | 2016-07-22 07:31 | Family Practice Progress Note ---
Family Practice - PN: Subj Interval history: Patient had a good night according the nursing staff. He is alert and arouses to spoken word. Speech is still garbled and unintelligible. He is awaiting half-way placement. I think he can be transferred to the floor. We will DC his bowel management system and stop his Chronulac. I will repeat his serum ammonia today. He has been typed and matched for 2 units of blood. His is filling paperwork for him to qualify for Medicaid so we can go to the half-way. Exam (Progress Note) - Constitutional Vitals: Period Temp Pulse Resp BP Sys/Mcbride Pulse Ox Last 24 Hr 97.4 F-97.8 F 66-130 13-24 90-135/56-85 94-100 Exam: Objective a well-developed white male who is awake and alert. His sensorium is unchanged from yesterday. Cardiovascular: Irregular rate without murmurs or gallops. Respiratory: Lungs clear to auscultation bilaterally. Abdomen: Abdomen soft and nontender to palpation. Results - Labs CBC & BMP: 07/22/16 04:30 07/22/16 04:30 Lab Results: I have reviewed the past 24 hour labs Assessment and Plan (1) Atrial flutter Status: Resolved Assessment and plan: 06/22/2016: Heart rate still bit elevated and he appears to be in persistent flutter 06/23/2016: Persistent atrial flutter. 07/21/2016: Atrial flutter persists. His rate is controlled but still requiring IV Cardizem. Current Visit: No (2) Anemia Status: Chronic Assessment and plan: 06/22/2016: Hematocrit remained stable. Patient has heme positive stool. 07/22/2016: Hematocrit down to 25%. We will transfuse 2 units packed red blood cells per Current Visit: Yes (3) Obstructive sleep apnea Problem details: refusing his mask Status: Chronic Assessment and plan: 06/22/2016: Patient apparently refusing to wear his CPAP mask. 06/30/2016: Patient is off the ventilator and is back on his BiPAP. 07/01/2016: Patient is tolerating BiPAP. Current Visit: Yes (4) Acute pancreatitis Status: Resolved Assessment and plan: 06/22/2016: Patient's pancreatitis has resolved. Current Visit: Yes Qualifiers: Pancreatitis type: alcohol induced (5) Aspiration pneumonitis Status: Resolved Assessment and plan: 06/23/2016: Have ordered 40 of Lasix. Blood cultures have been ordered. Will ask pulmonary to see as well. 06/28/2016: Patient is doing well in the event, is not tolerating weaning and will probably need LTAC. 06/29/2016: Patient is slowly improving. Will consult high risk case manager for LTAC. 06/30/2016: Patient is now off the ventilator. He will need long-term care facility. His long-term prognosis is very poor 07/01/2016: Patient's chest x-ray is improved this morning. Patient will require LTAC. Current Visit: Yes (6) Encephalopathy Status: Chronic Assessment and plan: 07/05/2016: Patient's encephalopathy persists. Patient is going to require long- term care and [facility]'s been consulted if his insurance will cooperate. 07/06/2016: Patient's neuro status is unchanged. 07/07/2016: Patient's neuro status is unchanged. I have asked Dr. Garcia to see him concerning his persistent encephalopathy. 07/19/2016: Patient's neuro status is unchanged. PEG tube placement is being considered and he will need a half-way bed. 07/20/2016: Patient scheduled for PEG tube placement today and half-way placement follow. 07/21/2016: Patient is more alert today and makes eye contact. 07/22/2016: Patient's sensorium is unchanged. I am going to repeat his ammonia level today. Current Visit: Yes (7) Respiratory arrest Status: Suspected Assessment and plan: 07/06/2016: Patient's chest x-ray is much improved. He certainly had extensive mucous plugging in his right chest. 07/07/2016: Patient is stable with ventilator support. Hopefully he can be weaned from the ventilator soon. His has made him a DNR. Current Visit: Yes Quality Measures - VTE Contraindication to Pharmacological VTE Prophylaxis: Active Bleeding
[2016-07-22 07:58] LABS: Folate 6.6 NG/ML (5.4-24.0)
[2016-07-22] MEDS: LACTULOSE 20 GM/30 ML UDCUP PO SCH (08:04)
[2016-07-22] MEDS: MIDODRINE 5 MG TABLET PO SCH ×3 (08:13→22:34)
[2016-07-22] MEDS: METOPROLOL TARTRATE 25 MG TABLET PO SCH ×2 (08:13→22:33)
[2016-07-22] MEDS: DESITIN 4OZ/NYSTATIN 15 GRAM MIXTURE PASTE TOP SCH ×2 (08:13→22:34)
[2016-07-22] MEDS: DILTIAZEM 60 MG TABLET PO SCH ×4 (08:13→22:33)
[2016-07-22] MEDS: NYSTATIN CREAM 15 GM TUBE TOP SCH ×2 (08:13→22:33)
--- NOTE | 2016-07-22 10:01 | Cardiology Progress Note ---
Amor Ramos Vanessa, RN, am scribing for, and in the presence of, Greg Reyes MD 10:01. Assessment and Plan - Time spent with patient Time spent with patient: Greater than 30 minutes (1) Atrial flutter with rapid ventricular response Status: Acute Assessment and plan: Pulse rate well controlled at this time. Atrial pacing noted. Continue current plan of care. Current Visit: Yes (2) Paroxysmal atrial fibrillation Status: Chronic Assessment and plan: He is not anticoagulated due to previous significant anemia requiring blood transfusion. Echocardiogram this admission LV ejection fraction 60%, grade 1/4 diastolic dysfunction, moderate TR with PA pressure 40-45 mmHg. Current Visit: Yes (3) CHF (congestive heart failure) Status: Acute Assessment and plan: Clinically, he appears to be overall well compensated at this time. LV ejection fraction is 60% with mild diastolic dysfunction per echocardiogram on 06/16. Current Visit: No Qualifiers: Congestive heart failure type: systolic Congestive heart failure chronicity : acute on chronic Qualified Code(s): I50.23 - Acute on chronic systolic ( congestive) heart failure (4) Hypertension Status: Chronic Assessment and plan: Stable and well controlled at this time. Continue current regimen. Current Visit: No (5) Anemia Status: Chronic Assessment and plan: H&H remained stable. Currently, he is not anticoagulated for stroke prevention due to severe anemia and has been transfused with a total of 5 units packed red blood cells this admission. 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 CONLEY (last seen in 2013) PCP: DR. BOOEN Mr. Tracy is a 60 year old male who has not followed with Dr. Conley since 2013. Past medical history includes anxiety, atrial fibrillation, diabetes, hypertension, psoriasis, tachybradycardia syndrome status post dual- chamber pacemaker placement, obstructive sleep apnea (noncompliant), hyperlipidemia, EtOH abuse. Risk factors are significant for: Diabetes, hyperlipidemia, hypertension, obesity, sedentary lifestyle. He was admitted to the hospital on June 15, 2016 and found to have pancreatitis, liver failure, and hepatorenal syndrome. He has been seen by gastroenterology, sleep medicine , nephrology. He required intubation for several days and has been extubated and is now on oxygen via nasal cannula. He has been minimally responsive and neurology has been following his encephalopathy. He is now arousable to verbal stimuli but will not follow commands. We were initially consulted to see him due to refractory tachycardia. We followed him and treated his atrial flutter w/ RVR for several days. He was being maintained on PO Cardizem in addition to Vitamin C and electrolyte replacement therapy and we subsequently signed off on 07/09/16. On 07/14/16, he went back into atrial fibrillation with rapid ventricular response and we were reconsulted. He was placed back on IV Cardizem and we have been attempting to control his heart rate. Overall, Mr. Tracy has a very poor prognosis. JULY 22 UPDATE: Mr. Tracy is seen and examined in the ICU this morning. He remains overall hemodynamically stable. Short, self sustained burst of atrial fibrillation with RVR yesterday afternoon, pulse rate 130s. This morning, he is in atrial flutter and fibrillation, pulse rate 70s-80s. BP stable. Neuro remains the same. Patient will open eyes and make eye contact with verbal stimuli but does not follow commands. Labs reviewed. WBC 14,100. H/H 8.7 & 25.3. K+ 4.1. Mg+ 1.9. Paperwork is in the process of being completed by [facility]. He is being transferred to med-surg room later this morning. There is been no significant change in the patient's cardiac status. He does continue with paroxysms of atrial fibrillation. He is not a candidate for anticoagulation. He is getting transfusions currently. We will continue following. Exam (Progress Note) - Constitutional Vitals: Period Temp Pulse Resp BP Sys/Mcbride Pulse Ox Last 24 Hr 97.4 F-97.7 F 66-130 13-24 90-135/56-85 94-100 Exam: General appearance: No acute distress but moving around,overweight. HEENT: Normocephalic. NG tube is in place. Neck: Trachea is in midline. Lungs: Anteriorly with coarse breath sounds but overall good air movement. No wheeze, stridor, accessory muscle use Cardiovascular: Irregular rhythm. No gross murmur. Abdomen: Soft bowel sounds present nondistended. No tenderness or mass Extremities:No edema, warm, dry, peripheral pulses 2+ throughout Neurologic: obtunded and encephlopathic. Result/EKG - Labs CBC & BMP: 07/22/16 04:30 07/22/16 04:30 Lab Results: I have reviewed the past 24 hour labs Labs: Laboratory Results - last 24 hr 07/21/16 07/21/16 07/22/16 11:37 18:05 00:05 WBC RBC Hgb Hct MCV MCH MCHC RDW Plt Count MPV Neut % (Auto) Lymph % (Auto) [place] % (Auto) Eos % (Auto) Baso % (Auto) Neut # (Auto) Lymph # (Auto) [place] # (Auto) Eos # (Auto) Baso # (Auto) Immature Gran % Nucleated RBC % Immature Gran # Nucleated RBCs # Platelet Estimate Hypochromasia Microcytosis Morphology Comment Sodium Potassium Chloride Carbon Dioxide Anion Gap BUN Creatinine GFR Calculation BUN/Creatinine Ratio Glucose POC Glucose 101 137 H 130 H Calculated Osmolality Calcium Phosphorus Magnesium Iron TIBC % Saturation Prealbumin Vitamin B12 Folate 07/22/16 07/22/16 07/22/16 04:30 04:30 04:30 WBC 14.1 H RBC 2.72 L Hgb 8.7 L Hct 25.3 L MCV 93.0 MCH 32 MCHC 34.4 RDW 15.7 Plt Count 188 MPV 12.1 H Neut % (Auto) 68.4 Lymph % (Auto) 14.2 L [place] % (Auto) 10.6 Eos % (Auto) 5.2 Baso % (Auto) 0.2 Neut # (Auto) 9.7 H Lymph # (Auto) 2.0 [place] # (Auto) 1.5 H Eos # (Auto) 0.7 Baso # (Auto) 0.0 Immature Gran % 1.4 Nucleated RBC % 0.0 Immature Gran # 0.20 Nucleated RBCs # 0.00 Platelet Estimate Normal Hypochromasia 1+ Microcytosis Slight Morphology Comment Sodium 142 Potassium 4.1 Chloride 111 H Carbon Dioxide 21 Anion Gap 14.1 BUN 34 H Creatinine 0.70 GFR Calculation 130 BUN/Creatinine Ratio 48.00 H Glucose 103 POC Glucose Calculated Osmolality 290.1 Calcium 9.9 Phosphorus 4.2 Magnesium 2.0 1.9 Iron TIBC % Saturation Prealbumin 22.5 Vitamin B12 Folate 07/22/16 07/22/16 07/22/16 04:30 04:30 05:48 WBC RBC Hgb Hct MCV MCH MCHC RDW Plt Count MPV Neut % (Auto) Lymph % (Auto) [place] % (Auto) Eos % (Auto) Baso % (Auto) Neut # (Auto) Lymph # (Auto) [place] # (Auto) Eos # (Auto) Baso # (Auto) Immature Gran % Nucleated RBC % Immature Gran # Nucleated RBCs # Platelet Estimate Hypochromasia Microcytosis Morphology Comment Sodium Potassium Chloride Carbon Dioxide Anion Gap BUN Creatinine GFR Calculation BUN/Creatinine Ratio Glucose POC Glucose 108 H Calculated Osmolality Calcium Phosphorus Magnesium Iron 59 L TIBC 225 L % Saturation 26.2 Prealbumin Vitamin B12 318 Folate 6.6 - EKG EKG results: interpreted by me, no acute changes (atrial flutter / atrial fibrillation; pulse rate 70s-80s) Quality Measures - VTE Contraindication to Pharmacological VTE Prophylaxis: Active Bleeding Eric Ramos Wesley, MD, personally performed the services described in this documentation, ascribed by Alice Chinchilla RN in my presence, and it is both accurate and complete .
[2016-07-22] MEDS: ENOXAPARIN 40 MG/0.4 ML SYRINGE SUBCUT SCH (13:40)
[2016-07-23] MEDS: INSULIN REGULAR 100 UNIT/ML SUBCUT SCH ×4 (01:40→17:46)
[2016-07-23] MEDS: LEVALBUTEROL 1.25 MG/3 ML NEB RESP TX SCH ×4 (02:04→19:18)
[2016-07-23 04:47] LABS: Basophils % 0.3 % (0.0-0.8); Eosinophils # 0.7 10*3/uL (0.0-0.87); Hematocrit 28.8 VOL% (42.0-52.0); Immature Granulocytes % 1.7 %; Immature Granulocytes Absolute 0.26 #; Lymphocytes # 1.8 10*3/uL (1.4-4.0); Lymphocytes % 12.2 % (21.2-54.2); Mean Corpuscular HGB Conc 34.7 GM/DL (32-36); Mean Corpuscular Hemoglobin 31 PG (27-34); Mean Corpuscular Volume 89.2 FL (87-102); Mean Platelet Volume 11.8 FL (9.6-12.0); Monocytes # 1.9 10*3/uL (0.11-0.8); Monocytes % 12.9 % (1.7-12.7); Neutrophils # 10.1 10*3/uL (1.4-7.4); Neutrophils % 67.9 % (38.7-73.9); Platelet Count 184 T/CUMM (130-400); Red Blood Count 3.23 MC/CUMM (3.8-5.5); Red Cell Distribution Width 16.2 % (9.3-17.3); White Blood Count 14.9 T/CUMM (4-12)
[2016-07-23 05:23] LABS: Platelet Estimate Normal
[2016-07-23 05:24] LABS: Anisocytosis Slight; Microcytosis Slight
[2016-07-23 05:30] LABS: Magnesium 1.7 MG/DL (1.8-2.4); Osmolality,Calculated 282.7 MOS/KG (273-304); Potassium 4.3 MMOL/L (3.5-5.1)
--- NOTE | 2016-07-23 05:36 | Family Practice Progress Note ---
Family Practice - PN: Subj Interval history: Patient had uneventful night according to the nursing staff. He still in atrial fib/flutter but has controlled rate. His sensorium is unchanged. His is making application for Medicaid as he will need to go to the snf. Repeat hematocrit this morning is 28.8. Exam (Progress Note) - Constitutional Vitals: Period Temp Pulse Resp BP Sys/Mcbride Pulse Ox Last 24 Hr 97.6 F-98.7 F 66-94 13-22 101-135/48-89 10-100 Exam: Objective a well-developed white male who is awake and alert. His sensorium is unchanged from yesterday. He has no intelligible verbal response Cardiovascular: Irregular rate without murmurs or gallops. Respiratory: Lungs clear to auscultation bilaterally. Abdomen: Abdomen soft and nontender to palpation. Results - Labs CBC & BMP: 07/23/16 04:09 07/23/16 04:09 Lab Results: I have reviewed the past 24 hour labs Assessment and Plan (1) Atrial flutter Status: Resolved Assessment and plan: 06/22/2016: Heart rate still bit elevated and he appears to be in persistent flutter 06/23/2016: Persistent atrial flutter. 07/21/2016: Atrial flutter persists. His rate is controlled but still requiring IV Cardizem. 07/22/2016: Patient has controlled rate. Current Visit: No (2) Anemia Status: Chronic Assessment and plan: 06/22/2016: Hematocrit remained stable. Patient has heme positive stool. 07/22/2016: Hematocrit down to 25%. We will transfuse 2 units packed red blood cells per Current Visit: Yes (3) Obstructive sleep apnea Problem details: refusing his mask Status: Chronic Assessment and plan: 06/22/2016: Patient apparently refusing to wear his CPAP mask. 06/30/2016: Patient is off the ventilator and is back on his BiPAP. 07/01/2016: Patient is tolerating BiPAP. Current Visit: Yes (4) Acute pancreatitis Status: Resolved Assessment and plan: 06/22/2016: Patient's pancreatitis has resolved. Current Visit: Yes Qualifiers: Pancreatitis type: alcohol induced (5) Aspiration pneumonitis Status: Resolved Assessment and plan: 06/23/2016: Have ordered 40 of Lasix. Blood cultures have been ordered. Will ask pulmonary to see as well. 06/28/2016: Patient is doing well in the event, is not tolerating weaning and will probably need LTAC. 06/29/2016: Patient is slowly improving. Will consult senior case manager for LTAC. 06/30/2016: Patient is now off the ventilator. He will need long-term care facility. His long-term prognosis is very poor 07/01/2016: Patient's chest x-ray is improved this morning. Patient will require LTAC. Current Visit: Yes (6) Encephalopathy Status: Chronic Assessment and plan: 07/05/2016: Patient's encephalopathy persists. Patient is going to require long- term care and [facility]'s been consulted if his insurance will cooperate. 07/06/2016: Patient's neuro status is unchanged. 07/07/2016: Patient's neuro status is unchanged. I have asked Dr. Garcia to see him concerning his persistent encephalopathy. 07/19/2016: Patient's neuro status is unchanged. PEG tube placement is being considered and he will need a snf bed. 07/20/2016: Patient scheduled for PEG tube placement today and snf placement follow. 07/21/2016: Patient is more alert today and makes eye contact. 07/22/2016: Patient's sensorium is unchanged. I am going to repeat his ammonia level today. 07/23/2016: Patient's sensorium is unchanged. Ammonia level yesterday was 21. Current Visit: Yes (7) Respiratory arrest Status: Suspected Assessment and plan: 07/06/2016: Patient's chest x-ray is much improved. He certainly had extensive mucous plugging in his right chest. 07/07/2016: Patient is stable with ventilator support. Hopefully he can be weaned from the ventilator soon. His has made him a DNR. Current Visit: Yes Quality Measures - VTE Contraindication to Pharmacological VTE Prophylaxis: Active Bleeding
[2016-07-23] MEDS: LEVOTHYROXINE 75 MCG TABLET PO SCH (07:16)
[2016-07-23] MEDS: MAGNESIUM SULF RIDER 2 GM in PREMIX 1 EACH IV PRN (07:39)
[2016-07-23] MEDS: DEXTROSE 5% 1,000 ML IV SCH ×2 (08:50→22:20)
[2016-07-23] MEDS: DILTIAZEM 60 MG TABLET PO SCH ×4 (09:07→22:42)
[2016-07-23] MEDS: METOPROLOL TARTRATE 25 MG TABLET PO SCH ×2 (09:07→22:43)
[2016-07-23] MEDS: MIDODRINE 5 MG TABLET PO SCH ×3 (09:07→22:43)
[2016-07-23] MEDS: NYSTATIN CREAM 15 GM TUBE TOP SCH ×2 (09:09→22:43)
[2016-07-23] MEDS: DESITIN 4OZ/NYSTATIN 15 GRAM MIXTURE PASTE TOP SCH ×2 (09:09→22:43)
--- NOTE | 2016-07-23 10:12 | Cardiology Progress Note ---
Cardiology - PN: Subj Interval history: Cardiology note Patient awake but does not communicate verbally. No new changes. Telemetry shows controlled atrial fib/flutter. Blood pressure 130/80 O2 sat 96% room air Pulse is 75-80 and irregular Irregular rhythm no murmur Decreased breath sounds Abdomen benign No leg edema Lab data today White count 14.9 hemoglobin 10.0 hematocrit 28.8 Sodium 138 potassium 4.3 chloride 105 CO2 18 BUN 32 creatinine 0.70 Glucose 108 Impression Alcoholic cirrhosis Obstructive sleep apnea Hypertension Chronic atrial fib/flutter History of torsade with sotalol Status post dual-chamber pacemaker Echo Doppler June 2011 showed ejection fraction 60% with diastolic dysfunction and moderate TR PA pressure 45 Altered mental status Plan Continue diltiazem 60 mg 4 times daily and metoprolol 25 mg twice daily for rate control The patient is not a candidate for anticoagulation Awaiting alf placement Exam (Progress Note) - Constitutional Vitals: Period Temp Pulse Resp BP Sys/Mcbride Pulse Ox Last 24 Hr 97.6 F-98.7 F 71-94 16-22 101-134/48-89 10-100 Result/EKG - Labs CBC & BMP: 07/23/16 04:09 07/23/16 04:09 Labs: Laboratory Results - last 24 hr 07/22/16 07/22/16 07/22/16 04:30 11:40 15:31 WBC RBC Hgb Hct MCV MCH MCHC RDW Plt Count MPV Neut % (Auto) Lymph % (Auto) [place] % (Auto) Eos % (Auto) Baso % (Auto) Neut # (Auto) Lymph # (Auto) [place] # (Auto) Eos # (Auto) Baso # (Auto) Immature Gran % Nucleated RBC % Immature Gran # Nucleated RBCs # Platelet Estimate Poikilocytosis Anisocytosis Microcytosis Sodium Potassium Chloride Carbon Dioxide Anion Gap BUN Creatinine GFR Calculation BUN/Creatinine Ratio Glucose POC Glucose 114 H 105 Calculated Osmolality Calcium Magnesium Blood Type A NEGATIVE Antibody Screen Negative Crossmatch See Detail 07/22/16 07/23/16 07/23/16 18:03 00:00 04:09 WBC 14.9 H RBC 3.23 L Hgb 10.0 L Hct 28.8 L MCV 89.2 MCH 31 MCHC 34.7 RDW 16.2 Plt Count 184 MPV 11.8 Neut % (Auto) 67.9 Lymph % (Auto) 12.2 L [place] % (Auto) 12.9 H Eos % (Auto) 5.0 Baso % (Auto) 0.3 Neut # (Auto) 10.1 H Lymph # (Auto) 1.8 [place] # (Auto) 1.9 H Eos # (Auto) 0.7 Baso # (Auto) 0.0 Immature Gran % 1.7 Nucleated RBC % 0.0 Immature Gran # 0.26 Nucleated RBCs # 0.00 Platelet Estimate Normal Poikilocytosis Anisocytosis Slight Microcytosis Slight Sodium Potassium Chloride Carbon Dioxide Anion Gap BUN Creatinine GFR Calculation BUN/Creatinine Ratio Glucose POC Glucose 123 H 119 H Calculated Osmolality Calcium Magnesium Blood Type Antibody Screen Crossmatch 07/23/16 07/23/16 04:09 06:03 WBC RBC Hgb Hct MCV MCH MCHC RDW Plt Count MPV Neut % (Auto) Lymph % (Auto) [place] % (Auto) Eos % (Auto) Baso % (Auto) Neut # (Auto) Lymph # (Auto) [place] # (Auto) Eos # (Auto) Baso # (Auto) Immature Gran % Nucleated RBC % Immature Gran # Nucleated RBCs # Platelet Estimate Poikilocytosis Anisocytosis Microcytosis Sodium 138 Potassium 4.3 Chloride 105 Carbon Dioxide 18 L Anion Gap 19.3 H BUN 32 H Creatinine 0.70 GFR Calculation 130 BUN/Creatinine Ratio 45.00 H Glucose 108 H POC Glucose 111 H Calculated Osmolality 282.7 Calcium 10.0 Magnesium 1.7 L Blood Type Antibody Screen Crossmatch Quality Measures - VTE Contraindication to Pharmacological VTE Prophylaxis: Active Bleeding
--- NOTE | 2016-07-23 12:01 | Case Mgmt Physician Query Form ---
TB Signs and Symptoms Screening ([place]) INSTRUCTIONS: To be completed annually on residents/staff with a significant Tuberculin Skin Test (TST) upon admission/hire or a prior significant TST. To be completed on all staff at hire. Please respond to each listed symptom with an (X) in either the "YES" or "NO" box. Do you currently have any of the following symptoms: YES NO ( ) (x ) A cough If yes, is it: ( ) Productive ( ) Non- productive ( ) (x ) Hemoptysis (spitting up blood) ( ) (x ) Chest pains ( ) (x ) Weight Loss ( ) (x ) Fever ( ) xx ) Night Sweats (x ) ( ) Weakness ( ) (x ) Loss of Appetite (x ) ( ) Difficulty Breathing If you answered YES" to any of the above questions, how long have symptoms been present? Comments: IQRA
[2016-07-23] MEDS: KETOCONAZOLE 2% SHAMPOO 120 ML BOTTLE TOP SCH (22:44)
[2016-07-23] MEDS: ENOXAPARIN 40 MG/0.4 ML SYRINGE SUBCUT SCH (23:17)
[2016-07-24] MEDS: LEVALBUTEROL 1.25 MG/3 ML NEB RESP TX SCH ×4 (00:24→19:37)
[2016-07-24 04:25] LABS: Basophils # 0.1 10*3/uL (0.0-0.2); Basophils % 0.4 % (0.0-0.8); Eosinophils # 0.7 10*3/uL (0.0-0.87); Eosinophils % 5.4 % (0.00-10.9); Hematocrit 27.5 VOL% (42.0-52.0); Hemoglobin 9.5 GM/DL (14.0-18.0); Immature Granulocytes % 1.7 %; Immature Granulocytes Absolute 0.23 #; Lymphocytes # 1.9 10*3/uL (1.4-4.0); Lymphocytes % 14.3 % (21.2-54.2); Mean Corpuscular HGB Conc 34.5 GM/DL (32-36); Mean Corpuscular Hemoglobin 31 PG (27-34); Mean Corpuscular Volume 88.7 FL (87-102); Mean Platelet Volume 12.2 FL (9.6-12.0); Monocytes # 1.4 10*3/uL (0.11-0.8); Monocytes % 10.4 % (1.7-12.7); Neutrophils # 8.9 10*3/uL (1.4-7.4); Neutrophils % 67.8 % (38.7-73.9); Platelet Count 192 T/CUMM (130-400); White Blood Count 13.2 T/CUMM (4-12)
[2016-07-24 05:34] LABS: Calcium 9.4 MG/DL (8.5-10.1); Magnesium 2.1 MG/DL (1.8-2.4); Osmolality,Calculated 279.8 MOS/KG (273-304); Potassium 4.4 MMOL/L (3.5-5.1)
[2016-07-24] MEDS: INSULIN REGULAR 100 UNIT/ML SUBCUT SCH ×4 (07:42→23:59)
--- NOTE | 2016-07-24 08:45 | Family Practice Progress Note ---
Family Practice - PN: Subj Interval history: Patient seen this morning is stable. No acute changes. White count is 13,000 H &H is 9.5 and 27. Oxygen sats 93%. He does have his sleep apnea machine going at present. Vital signs are stable Exam (Progress Note) - Constitutional Vitals: Period Temp Pulse Resp BP Sys/Mcbride Pulse Ox Last 24 Hr 98.2 F-98.7 F 68-102 16-20 112-148/73-89 93-100 Exam: Remains on ventilator NG tube is in place at this time. Cardiovascular 1/6 systolic ejection murmur. Lungs few rales and mild diffuse rhonchi. Abdomen soft nondistended, feeding tube in place at present Extremities some mild edema. Areas of skin fragility. Patient does have a Sharpe in place Results - Labs CBC & BMP: 07/24/16 03:42 07/24/16 03:42 Quality Measures - VTE Contraindication to Pharmacological VTE Prophylaxis: Active Bleeding
[2016-07-24] MEDS: DILTIAZEM 60 MG TABLET PO SCH ×4 (09:24→21:39)
[2016-07-24] MEDS: LEVOTHYROXINE 75 MCG TABLET PO SCH (09:24)
[2016-07-24] MEDS: METOPROLOL TARTRATE 25 MG TABLET PO SCH ×2 (09:24→21:39)
[2016-07-24] MEDS: MIDODRINE 5 MG TABLET PO SCH ×3 (09:24→21:38)
[2016-07-24] MEDS: NYSTATIN CREAM 15 GM TUBE TOP SCH ×2 (09:26→21:39)
[2016-07-24] MEDS: DESITIN 4OZ/NYSTATIN 15 GRAM MIXTURE PASTE TOP SCH ×2 (09:26→21:40)
[2016-07-24] MEDS: DEXTROSE 5% 1,000 ML IV SCH (11:13)
[2016-07-24] MEDS: ENOXAPARIN 40 MG/0.4 ML SYRINGE SUBCUT SCH (21:38)
[2016-07-25] MEDS: LEVALBUTEROL 1.25 MG/3 ML NEB RESP TX SCH ×4 (01:51→19:29)
[2016-07-25] MEDS: INSULIN REGULAR 100 UNIT/ML SUBCUT SCH ×3 (06:01→18:08)
[2016-07-25 06:19] LABS: Basophils % 0.2 % (0.0-0.8); Eosinophils # 0.6 10*3/uL (0.0-0.87); Eosinophils % 4.8 % (0.00-10.9); Hematocrit 27.4 VOL% (42.0-52.0); Hemoglobin 9.4 GM/DL (14.0-18.0); Immature Granulocytes % 2.4 %; Immature Granulocytes Absolute 0.29 #; Lymphocytes # 1.8 10*3/uL (1.4-4.0); Mean Corpuscular HGB Conc 34.3 GM/DL (32-36); Mean Corpuscular Hemoglobin 32 PG (27-34); Mean Corpuscular Volume 92.3 FL (87-102); Mean Platelet Volume 11.5 FL (9.6-12.0); Monocytes # 1.3 10*3/uL (0.11-0.8); Monocytes % 10.5 % (1.7-12.7); Neutrophils # 8.2 10*3/uL (1.4-7.4); Neutrophils % 67.1 % (38.7-73.9); Platelet Count 161 T/CUMM (130-400); Red Blood Count 2.97 MC/CUMM (3.8-5.5); Red Cell Distribution Width 15.9 % (9.3-17.3); White Blood Count 12.2 T/CUMM (4-12)
[2016-07-25 06:40] LABS: Microcytosis 1+; Platelet Estimate Adequate
[2016-07-25 06:50] LABS: Calcium 10.1 MG/DL (8.5-10.1); Osmolality,Calculated 274.1 MOS/KG (273-304); Potassium 4.6 MMOL/L (3.5-5.1)
[2016-07-25] MEDS: METOPROLOL TARTRATE 25 MG TABLET PO SCH ×2 (08:29→22:01)
[2016-07-25] MEDS: DILTIAZEM 60 MG TABLET PO SCH ×4 (08:29→21:59)
[2016-07-25] MEDS: MIDODRINE 5 MG TABLET PO SCH ×3 (08:29→22:01)
[2016-07-25] MEDS: NYSTATIN CREAM 15 GM TUBE TOP SCH ×2 (08:30→22:00)
[2016-07-25] MEDS: DESITIN 4OZ/NYSTATIN 15 GRAM MIXTURE PASTE TOP SCH ×2 (08:30→22:00)
[2016-07-25] MEDS: LEVOTHYROXINE 75 MCG TABLET PO SCH (08:30)
--- NOTE | 2016-07-25 09:04 | Family Practice Progress Note ---
Family Practice - PN: Subj Interval history: Patient seen this morning. Interval pretty much unchanged.. His CBC is approximately the same as well and chemistry is pretty much normal. Remains with encephalopathy and [facility] Exam (Progress Note) - Constitutional Vitals: Period Temp Pulse Resp BP Sys/Mcbride Pulse Ox Last 24 Hr 97.0 F-98.9 F 63-104 20-24 113-137/67-77 95-100 Exam: Patient seen this morning. He is resting well actually able to try to talk but difficult to understand and Cardiovascular 1/6 systolic ejection murmur Lungs few right basal rales Abdomen soft nondistended positive bowel sounds Extremities and skin with some coarse skin turgor is good Results - Labs CBC & BMP: 07/25/16 05:26 07/25/16 05:26 Assessment and Plan (1) Hypernatremia Status: Resolved Current Visit: Yes Quality Measures - VTE Contraindication to Pharmacological VTE Prophylaxis: Active Bleeding
[2016-07-25] MEDS ORDERED: TUBERCULIN SKIN TEST 0.1 ML SYRINGE INTRADERM ONE (10:50)
[2016-07-25] MEDS: DEXTROSE 5% 1,000 ML IV SCH ×2 (14:28)
[2016-07-25] MEDS: ACETAMINOPHEN 325 MG TABLET PO PRN (16:11)
[2016-07-25] MEDS: ENOXAPARIN 40 MG/0.4 ML SYRINGE SUBCUT SCH (21:59)
[2016-07-26] MEDS: LEVALBUTEROL 1.25 MG/3 ML NEB RESP TX SCH ×4 (00:29→20:08)
[2016-07-26 03:23] LABS: Basophils % 0.2 % (0.0-0.8); Eosinophils # 0.5 10*3/uL (0.0-0.87); Eosinophils % 2.6 % (0.00-10.9); Hematocrit 25.4 VOL% (42.0-52.0); Immature Granulocytes % 0.9 %; Immature Granulocytes Absolute 0.16 #; Lymphocytes # 0.8 10*3/uL (1.4-4.0); Lymphocytes % 4.6 % (21.2-54.2); Mean Corpuscular HGB Conc 35.4 GM/DL (32-36); Mean Corpuscular Hemoglobin 32 PG (27-34); Mean Corpuscular Volume 89.1 FL (87-102); Mean Platelet Volume 11.7 FL (9.6-12.0); Monocytes # 1.2 10*3/uL (0.11-0.8); Neutrophils # 14.8 10*3/uL (1.4-7.4); Neutrophils % 84.7 % (38.7-73.9); Platelet Count 150 T/CUMM (130-400); Red Blood Count 2.85 MC/CUMM (3.8-5.5); White Blood Count 17.5 T/CUMM (4-12)
[2016-07-26 03:28] LABS: Calcium 9.7 MG/DL (8.5-10.1); Magnesium 1.8 MG/DL (1.8-2.4); Osmolality,Calculated 273.4 MOS/KG (273-304); Potassium 4.4 MMOL/L (3.5-5.1)
[2016-07-26 04:18] LABS: Eosinophils 4 % (0-10); Lymphocytes 10 % (20-55); Platelet Estimate Normal; Segmented Neutrophils 81 % (50-85); Total Cells Counted 100
[2016-07-26] MEDS: DEXTROSE 5% 1,000 ML IV SCH ×2 (05:30→19:10)
[2016-07-26] MEDS: INSULIN REGULAR 100 UNIT/ML SUBCUT SCH ×4 (06:02→18:34)
[2016-07-26] MEDS ORDERED: SODIUM CHLORIDE 0.9% 250 ML IV PRN (06:18)
--- NOTE | 2016-07-26 07:17 | Family Practice Progress Note ---
Family Practice - PN: Subj Interval history: Patient had a good night according the nursing staff until this morning when he vomited twice. He has not had increased residuals on his tube feedings. I am going to repeat his chest x-ray and restart his Reglan. He is also noted to be anemic again with hematocrit 25.4. He is iron deficient and I am going to start him on an iron supplement as well as given 2 units of packed red blood cells. Hopefully we will find out about possible shelter soon. Exam (Progress Note) - Constitutional Vitals: Period Temp Pulse Resp BP Sys/Mcbride Pulse Ox Last 24 Hr 98.1 F-99.6 F 72-114 18- 103-136/47-77 95-99 Exam: Objective a well-developed white male who is awake and alert. His sensorium is unchanged. He has no intelligible verbal response Cardiovascular: Irregular rate without murmurs or gallops. Respiratory: Lungs clear to auscultation bilaterally. Abdomen: Abdomen soft and nontender to palpation. Results - Labs CBC & BMP: 07/26/16 02:05 07/26/16 02:05 Lab Results: I have reviewed the past 24 hour labs Assessment and Plan (1) Atrial flutter Status: Resolved Assessment and plan: 06/22/2016: Heart rate still bit elevated and he appears to be in persistent flutter 06/23/2016: Persistent atrial flutter. 07/21/2016: Atrial flutter persists. His rate is controlled but still requiring IV Cardizem. 07/22/2016: Patient has controlled rate. Current Visit: No (2) Anemia Status: Chronic Assessment and plan: 06/22/2016: Hematocrit remained stable. Patient has heme positive stool. 07/22/2016: Hematocrit down to 25%. We will transfuse 2 units packed red blood cells per 04/28/2016: Donna's back to 25%. Will transfuse 2 units packed red blood cells and begin iron supplement. Current Visit: Yes (3) Obstructive sleep apnea Problem details: refusing his mask Status: Chronic Assessment and plan: 06/22/2016: Patient apparently refusing to wear his CPAP mask. 06/30/2016: Patient is off the ventilator and is back on his BiPAP. 07/01/2016: Patient is tolerating BiPAP. Current Visit: Yes (4) Acute pancreatitis Status: Resolved Assessment and plan: 06/22/2016: Patient's pancreatitis has resolved. Current Visit: Yes Qualifiers: Pancreatitis type: alcohol induced (5) Aspiration pneumonitis Status: Resolved Assessment and plan: 06/23/2016: Have ordered 40 of Lasix. Blood cultures have been ordered. Will ask pulmonary to see as well. 06/28/2016: Patient is doing well in the event, is not tolerating weaning and will probably need LTAC. 06/29/2016: Patient is slowly improving. Will consult telephonic case manager for LTAC. 06/30/2016: Patient is now off the ventilator. He will need long-term care facility. His long-term prognosis is very poor 07/01/2016: Patient's chest x-ray is improved this morning. Patient will require LTAC. Current Visit: Yes (6) Encephalopathy Status: Chronic Assessment and plan: 07/05/2016: Patient's encephalopathy persists. Patient is going to require long- term care and [facility]'s been consulted if his insurance will cooperate. 07/06/2016: Patient's neuro status is unchanged. 07/07/2016: Patient's neuro status is unchanged. I have asked Dr. Garcia to see him concerning his persistent encephalopathy. 07/19/2016: Patient's neuro status is unchanged. PEG tube placement is being considered and he will need a shelter bed. 07/20/2016: Patient scheduled for PEG tube placement today and shelter placement follow. 07/21/2016: Patient is more alert today and makes eye contact. 07/22/2016: Patient's sensorium is unchanged. I am going to repeat his ammonia level today. 07/23/2016: Patient's sensorium is unchanged. Ammonia level yesterday was 21. 07/26/2016: Patient's sensorium is unchanged. Current Visit: Yes (7) Respiratory arrest Status: Suspected Assessment and plan: 07/06/2016: Patient's chest x-ray is much improved. He certainly had extensive mucous plugging in his right chest. 07/07/2016: Patient is stable with ventilator support. Hopefully he can be weaned from the ventilator soon. His has made him a DNR. Current Visit: Yes Quality Measures - VTE Contraindication to Pharmacological VTE Prophylaxis: Active Bleeding
--- NOTE | 2016-07-26 08:21 | XRay Report ---
Referring Physician: Daniel Reyes Exam: XR chest 1V portable Date: July 26, 2016 at 7:04 AM Reason: Dyspnea/shortness of breath Comparison: Chest one view portable July 19, 2016 Findings: A right-sided PICC and cardiac pacing device are again in place. The cardiac silhouette is again enlarged. There are scattered opacities within the right lower lung zone, which could represent atelectasis or improving pneumonia. There is also persistent mild elevation of the right hemidiaphragm. No pneumothorax or definite pleural fluid is identified. The osseous structures appear stable. Impression: There is persistent mild elevation of the right hemidiaphragm and mild opacities at the right lower lung zone which could represent atelectasis or improving pneumonia. The opacities have slightly improved. PROCEDURE INTERPRETED AT [facility] DEPARTMENT OF RADIOLOGY Final Report Signed by: Dr. David Rhoades
--- NOTE | 2016-07-26 09:09 | Cardiology Progress Note ---
Assessment and Plan (1) Paroxysmal atrial fibrillation Status: Chronic Assessment and plan: See HPI Current Visit: Yes (2) Hypertension Status: Chronic Current Visit: No (3) Alcohol abuse Status: Chronic Current Visit: Yes (4) Anemia Status: Chronic Assessment and plan: He is not on anticoagulation for this reason. Current Visit: Yes (5) Alcoholic cirrhosis Status: Chronic Current Visit: Yes (6) Aspiration pneumonitis Status: Resolved Assessment and plan: This is being managed by pulmonology. Current Visit: Yes (7) Respiratory failure Status: Acute Assessment and plan: Currently stable, pulmonology is following. Current Visit: Yes (8) Obesity Status: Chronic Current Visit: Yes (9) Obstructive sleep apnea Problem details: refusing his mask Status: Chronic Current Visit: Yes Cardiology - PN: Subj Interval history: The patient is usually followed by Dr. Leon. I have reviewed the patient's chart. He is an unfortunate gentleman with alcoholic cirrhosis who has been in the hospital with encephalopathy, some pancreatitis, ongoing iron deficiency anemia with unremarkable EGD. He has apparently paroxysmal atrial fibrillation or flutter. He is not an anticoagulant candidate because of his ongoing anemia. He has had a PEG tube placed and is on short acting rate controlling agents because of the PEG tube requirement. In general his hemodynamics have been fairly well controlled. He did have some emesis this morning, the timing of this regarding his medication administration and whether not this was absorbed is unclear to me. He does not really converse with me, he only groans. Impression Alcoholic cirrhosis Obstructive sleep apnea Hypertension-currently controlled. Chronic atrial fib/flutter-currently controlled. Not an anticoagulant candidate. 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 If he is unable to tolerate PEG tube medications temporarily, you can treat him with IV Lopressor 5 mg every 6 hours and a Cardizem drip at 10 mg an hour for an equivalent of what he is receiving now. However, this would not be a long-term strategy and I would continue with his PEG medications if he is tolerating this. His anemia precludes candidacy for anticoagulation. We will sign off, please contact us for any further dynamic cardiac challenges. Exam (Progress Note) - Constitutional Vitals: Period Temp Pulse Resp BP Sys/Mcbride Pulse Ox Last 24 Hr 98.1 F-99.6 F 89-114 18-22 103-128/47-70 95-99 Exam: General appearance: Obese, no acute distress, not really interactive, opens his eyes and groans but does not follow commands. - Head Head exam: Present: normal inspection, normocephalic, atraumatic. Absent: hematoma, laceration - Eye Eye exam: Absent: conjunctival injection, scleral icterus, laceration to eyelids Pupils: Present: LORIE. Absent: constricted, dilated, fixed, irregular, unequal - ENT ENT exam: Normal external ears and nose. - Neck Neck exam: Present: Exam limited by habitus, overall normal inspection. Absent : lymphadenopathy, meningismus, tenderness, thyromegaly - Respiratory Respiratory exam: Present: Exam limited by habitus, overall clear to auscultation bilaterally anteriorly. Absent: accessory muscle use, chest wall tenderness - Cardiovascular Cardiovascular exam: Present: Exam limited by habitus, tones in general distant but overall mildly tachycardic. Absent: carotid bruit, gallop, JVD, rubs - GI/Abdominal GI/Abdominal exam: Present: Exam limited by habitus, overall normal bowel sounds , PEG tube in place. Absent: distended, firm, guarding, hernia, mass, tenderness, rebound, soft - Extremities Exam Extremities exam: No edema, clubbing, cyanosis. - Back Exam Back exam: Unable to assess due to patient's mental status. - Neurological Exam Neurological exam: The patient is not interactive, only groans, no meaningful interaction. - Psychiatric Psychiatric exam: Unable to assess due to mental status. - Skin Skin exam: Present: normal color, warm, dry, intact. Absent: cyanosis, diaphoretic, rash, urticaria Result/EKG - Labs CBC & BMP: 07/26/16 02:05 07/26/16 02:05 Lab Results: I have reviewed the past 24 hour labs Labs: Laboratory Results - last 24 hr 07/25/16 07/25/16 07/26/16 11:10 17:57 00:20 WBC RBC Hgb Hct MCV MCH MCHC RDW Plt Count MPV Neut % (Auto) Lymph % (Auto) Norman % (Auto) Eos % (Auto) Baso % (Auto) Neut # (Auto) Lymph # (Auto) Norman # (Auto) Eos # (Auto) Baso # (Auto) Total Counted Immature Gran % Nucleated RBC % Immature Gran # Segmented Neutrophils Lymphocytes Monocytes Eosinophils Nucleated RBCs # Platelet Estimate Pappenheimer Bodies Sodium Potassium Chloride Carbon Dioxide Anion Gap BUN Creatinine GFR Calculation BUN/Creatinine Ratio Glucose POC Glucose 89 126 H 123 H Calculated Osmolality Calcium Magnesium Blood Type Antibody Screen Crossmatch 07/26/16 07/26/16 07/26/16 02:03 02:05 02:05 WBC 17.5 H D RBC 2.85 L Hgb 9.0 L Hct 25.4 L MCV 89.1 MCH 32 MCHC 35.4 RDW 16.0 Plt Count 150 MPV 11.7 Neut % (Auto) 84.7 H Lymph % (Auto) 4.6 L Norman % (Auto) 7.0 Eos % (Auto) 2.6 Baso % (Auto) 0.2 Neut # (Auto) 14.8 H Lymph # (Auto) 0.8 L Norman # (Auto) 1.2 H Eos # (Auto) 0.5 Baso # (Auto) 0.0 Total Counted 100 Immature Gran % 0.9 Nucleated RBC % 0.0 Immature Gran # 0.16 Segmented Neutrophils 81 Lymphocytes 10 L Monocytes 5 Eosinophils 4 Nucleated RBCs # 0.00 Platelet Estimate Normal Pappenheimer Bodies Machine Bunch Maker Sodium 133 L Potassium 4.4 Chloride 99 Carbon Dioxide 22 Anion Gap 16.4 H BUN 33 H Creatinine 1.10 GFR Calculation 92 BUN/Creatinine Ratio 30.00 H Glucose 123 H POC Glucose Calculated Osmolality 273.4 Calcium 9.7 Magnesium 1.8 Blood Type A NEGATIVE Antibody Screen Negative Crossmatch See Detail 07/26/16 06:02 WBC RBC Hgb Hct MCV MCH MCHC RDW Plt Count MPV Neut % (Auto) Lymph % (Auto) Norman % (Auto) Eos % (Auto) Baso % (Auto) Neut # (Auto) Lymph # (Auto) Norman # (Auto) Eos # (Auto) Baso # (Auto) Total Counted Immature Gran % Nucleated RBC % Immature Gran # Segmented Neutrophils Lymphocytes Monocytes Eosinophils Nucleated RBCs # Platelet Estimate Pappenheimer Bodies Sodium Potassium Chloride Carbon Dioxide Anion Gap BUN Creatinine GFR Calculation BUN/Creatinine Ratio Glucose POC Glucose 117 H Calculated Osmolality Calcium Magnesium Blood Type Antibody Screen Crossmatch Quality Measures - VTE Contraindication to Pharmacological VTE Prophylaxis: Active Bleeding
[2016-07-26] MEDS: FERROUS SULFATE 300 MG/5 ML UDCUP PO SCH ×2 (10:31→21:21)
[2016-07-26] MEDS: MIDODRINE 5 MG TABLET PO SCH ×3 (10:32→21:20)
[2016-07-26] MEDS: DILTIAZEM 60 MG TABLET PO SCH ×5 (10:32→21:20)
[2016-07-26] MEDS: METOPROLOL TARTRATE 25 MG TABLET PO SCH ×2 (10:32→21:21)
[2016-07-26] MEDS: LEVOTHYROXINE 75 MCG TABLET PO SCH (10:33)
[2016-07-26] MEDS: METOCLOPRAMIDE 10 MG/2 ML VIAL IV SCH ×2 (10:33→16:42)
[2016-07-26] MEDS: NYSTATIN CREAM 15 GM TUBE TOP SCH ×2 (10:33→21:20)
[2016-07-26] MEDS: DESITIN 4OZ/NYSTATIN 15 GRAM MIXTURE PASTE TOP SCH ×2 (10:34→21:20)
[2016-07-26] MEDS: ACETAMINOPHEN 325 MG TABLET PO PRN ×2 (11:36→21:19)
[2016-07-26] MEDS ORDERED: ALBUTEROL 2.5 MG/3 ML NEB RESP TX ONE (12:04)
[2016-07-26] MEDS ORDERED: FUROSEMIDE 40 MG/4 ML VIAL IV PRN (12:19)
[2016-07-26] MEDS ORDERED: FUROSEMIDE 40 MG/4 ML VIAL IV ONE (12:30)
--- NOTE | 2016-07-26 13:06 | XRay Report ---
Portable chest Date: 07/26/2016 Clinical history: Shortness of breath Comparison: 07/26/2016 Technique: Portable AP sitting chest Findings: Stable cardiomegaly, left subclavian atrioventricular permanent pacemaker, and right arm PICC line. Progressive diffuse parenchymal findings especially at the lung bases with small left pleural effusion. Stable mediastinum and osseous structures. Impression: Motion artifact. Minimally progressive bibasilar atelectasis/infiltration/edema with small left pleural effusion. PROCEDURE INTERPRETED AT [facility] DEPARTMENT OF RADIOLOGY Final Report Signed by: Dr. Susan Lawrence
[2016-07-26] MEDS ORDERED: ACETAMINOPHEN 650 MG SUPP RECTAL PRN (14:12)
[2016-07-26] MEDS: PIPERACILLIN/TAZOBACTAM 3,375 MG in SODIUM CHLORIDE 0.9% 100 ML IV SCH ×2 (14:17→21:21)
[2016-07-26] MEDS: ENOXAPARIN 40 MG/0.4 ML SYRINGE SUBCUT SCH (21:19)
[2016-07-27] MEDS ORDERED: METOPROLOL TARTRATE 5 MG/5 ML VIAL IV ONE (00:19)
[2016-07-27] MEDS: LEVALBUTEROL 1.25 MG/3 ML NEB RESP TX SCH ×4 (01:00→20:09)
[2016-07-27] MEDS: METOCLOPRAMIDE 10 MG/2 ML VIAL IV SCH ×3 (01:35→18:04)
[2016-07-27 02:51] LABS: Apearance,Urine CLOUDY (Clear); Bacteria,Urine Occasional /HPF (Few); Bilirubin,Urine Negative (Negative); Blood, Urine Moderate mg/dL (Negative); Glucose,Urine (UA) Negative (Negative); Ketones,Urine Negative (Negative); Mucus,Urine Occasional /LPF (Occasional); Nitrite,Urine Negative (Negative); Protein,Urine 30 MG/DL; RBC,Urine 51 /HPF (0-4); Renal Epithelial Cells,Urine Occasional /HPF (<1); Squamous Epithelial Cell,Urine Occasional /HPF (0-10); Urine Color Yellow (Yellow); Urine Specific Gravity 1.014 (1.001-1.035); Urine Urobilinogen < 2.0 EU/DL (0.2-1.0); WBC,Urine 80 /HPF (0-6)
[2016-07-27] MEDS: INSULIN REGULAR 100 UNIT/ML SUBCUT SCH ×4 (02:58→18:16)
[2016-07-27] MEDS: PIPERACILLIN/TAZOBACTAM 3,375 MG in SODIUM CHLORIDE 0.9% 100 ML IV SCH ×3 (06:26→21:17)
--- NOTE | 2016-07-27 07:20 | Family Practice Progress Note ---
Family Practice - PN: Subj Interval history: Patient is doing much better this morning with reduction in his heart rate and his respiratory rate. Chest right yesterday showed bibasilar atelectasis. His temperature is down this morning and his cultures are pending. He did have pyuria on urinalysis. He is still a DNR and we are still seeking a residential bed for him. Exam (Progress Note) - Constitutional Vitals: Period Temp Pulse Resp BP Sys/Mcbride Pulse Ox Last 24 Hr 98.0 F-103.3 F 87-119 20-60 103-149/50-82 85-100 Exam: Objective a well-developed white male who is awake and alert. He opens his eyes when spoken to Cardiovascular: Irregular rate without murmurs or gallops. Respiratory: Patient has bilateral rhonchi. This is certainly improved from lunchtime yesterday. Abdomen: Abdomen soft and nontender to palpation. Results - Labs CBC & BMP: 07/26/16 02:05 07/26/16 02:05 Lab Results: I have reviewed the past 24 hour labs - Diagnostic Findings Procedure: Chest x-ray: report reviewed by me (Chest x-ray yesterday showed bibasilar changes.) Assessment and Plan (1) Atrial flutter Status: Resolved Assessment and plan: 06/22/2016: Heart rate still bit elevated and he appears to be in persistent flutter 06/23/2016: Persistent atrial flutter. 07/21/2016: Atrial flutter persists. His rate is controlled but still requiring IV Cardizem. 07/22/2016: Patient has controlled rate. Current Visit: No (2) Anemia Status: Chronic Assessment and plan: 06/22/2016: Hematocrit remained stable. Patient has heme positive stool. 07/22/2016: Hematocrit down to 25%. We will transfuse 2 units packed red blood cells per 04/28/2016: Donna's back to 25%. Will transfuse 2 units packed red blood cells and begin iron supplement. Current Visit: Yes (3) Obstructive sleep apnea Problem details: refusing his mask Status: Chronic Assessment and plan: 06/22/2016: Patient apparently refusing to wear his CPAP mask. 06/30/2016: Patient is off the ventilator and is back on his BiPAP. 07/01/2016: Patient is tolerating BiPAP. 07/27/2016: Patient is tolerating his CPAP. Current Visit: Yes (4) Acute pancreatitis Status: Resolved Assessment and plan: 06/22/2016: Patient's pancreatitis has resolved. Current Visit: Yes Qualifiers: Pancreatitis type: alcohol induced (5) Aspiration pneumonitis Status: Resolved Assessment and plan: 06/23/2016: Have ordered 40 of Lasix. Blood cultures have been ordered. Will ask pulmonary to see as well. 06/28/2016: Patient is doing well in the event, is not tolerating weaning and will probably need LTAC. 06/29/2016: Patient is slowly improving. Will consult top case assembler for LTAC. 06/30/2016: Patient is now off the ventilator. He will need long-term care facility. His long-term prognosis is very poor 07/01/2016: Patient's chest x-ray is improved this morning. Patient will require LTAC. Current Visit: Yes (6) Encephalopathy Status: Chronic Assessment and plan: 07/05/2016: Patient's encephalopathy persists. Patient is going to require long- term care and [facility]'s been consulted if his insurance will cooperate. 07/06/2016: Patient's neuro status is unchanged. 07/07/2016: Patient's neuro status is unchanged. I have asked Dr. Garcia to see him concerning his persistent encephalopathy. 07/19/2016: Patient's neuro status is unchanged. PEG tube placement is being considered and he will need a residential bed. 07/20/2016: Patient scheduled for PEG tube placement today and residential placement follow. 07/21/2016: Patient is more alert today and makes eye contact. 07/22/2016: Patient's sensorium is unchanged. I am going to repeat his ammonia level today. 07/23/2016: Patient's sensorium is unchanged. Ammonia level yesterday was 21. 07/26/2016: Patient's sensorium is unchanged. 07/27/2016: Patient's sensorium is unchanged. Patient's told me that he was responsive and much more alert 2 days ago. Current Visit: Yes (7) Respiratory arrest Status: Suspected Assessment and plan: 07/06/2016: Patient's chest x-ray is much improved. He certainly had extensive mucous plugging in his right chest. 07/07/2016: Patient is stable with ventilator support. Hopefully he can be weaned from the ventilator soon. His has made him a DNR. Current Visit: Yes Quality Measures - VTE Contraindication to Pharmacological VTE Prophylaxis: Active Bleeding
--- NOTE | 2016-07-27 08:06 | XRay Report ---
Referring Physician: Daniel Reyes Exam: XR chest 1V portable Date: July 27, 2016 at 6:33 AM Reason: Dyspnea/shortness of breath Comparison: Chest one view portable July 26, 2016 Findings: A right-sided PICC and cardiac pacing device are again present. The cardiac silhouette is again enlarged. There are bibasilar opacities and possible minimal perihilar opacities. This likely represents atelectasis and possibly pulmonary edema or pneumonia. No pneumothorax or definite pleural fluid is identified. No acute osseous process is seen. Impression: There has been no significant change. PROCEDURE INTERPRETED AT [facility] DEPARTMENT OF RADIOLOGY Final Report Signed by: Dr. David Rhoades
[2016-07-27] MEDS: METOPROLOL TARTRATE 25 MG TABLET PO SCH (09:00)
[2016-07-27] MEDS: FERROUS SULFATE 300 MG/5 ML UDCUP PO SCH ×2 (09:00→21:24)
[2016-07-27] MEDS: MIDODRINE 5 MG TABLET PO SCH ×3 (09:00→21:23)
[2016-07-27] MEDS: LEVOTHYROXINE 75 MCG TABLET PO SCH (09:00)
[2016-07-27] MEDS: DILTIAZEM 60 MG TABLET PO SCH ×4 (09:00→21:24)
[2016-07-27] MEDS: DESITIN 4OZ/NYSTATIN 15 GRAM MIXTURE PASTE TOP SCH ×2 (09:01→21:25)
[2016-07-27] MEDS: NYSTATIN CREAM 15 GM TUBE TOP SCH ×2 (09:01→21:25)
[2016-07-27] MEDS: DEXTROSE 5% 1,000 ML IV SCH ×2 (21:00→21:30)
[2016-07-27] MEDS: KETOCONAZOLE 2% SHAMPOO 120 ML BOTTLE TOP SCH (21:15)
[2016-07-27] MEDS: ENOXAPARIN 40 MG/0.4 ML SYRINGE SUBCUT SCH (21:24)
[2016-07-28] MEDS: METOCLOPRAMIDE 10 MG/2 ML VIAL IV SCH ×3 (01:31→17:13)
[2016-07-28] MEDS: METOPROLOL TARTRATE 25 MG TABLET PO SCH ×3 (01:34→20:57)
[2016-07-28] MEDS: INSULIN REGULAR 100 UNIT/ML SUBCUT SCH ×5 (01:35→23:30)
[2016-07-28] MEDS: LEVALBUTEROL 1.25 MG/3 ML NEB RESP TX SCH ×4 (01:40→20:30)
[2016-07-28] MEDS: PIPERACILLIN/TAZOBACTAM 3,375 MG in SODIUM CHLORIDE 0.9% 100 ML IV SCH ×3 (06:09→21:06)
--- NOTE | 2016-07-28 07:55 | Family Practice Progress Note ---
Family Practice - PN: Subj Interval history: Patient is doing about the same and had a good night according to nursing staff. He is more awake and alert this morning and I even think he understands me a bit. He is using his CPAP and has no dyspnea at rest. Exam (Progress Note) - Constitutional Vitals: Period Temp Pulse Resp BP Sys/Mcbride Pulse Ox Last 24 Hr 97.6 F-98.9 F 95-154 14-24 108-117/52-75 96-100 Exam: Objective a well-developed white male who is awake and alert. He opens his eyes when spoken to but his speech is still not intelligible. Cardiovascular: Irregular rate without murmurs or gallops. Respiratory: Patient has bilateral rhonchi. This is certainly improved from yesterday. Abdomen: Abdomen soft and nontender to palpation. Results - Labs CBC & BMP: 07/26/16 02:05 07/26/16 02:05 Lab Results: I have reviewed the past 24 hour labs Assessment and Plan (1) Atrial flutter Status: Resolved Assessment and plan: 06/22/2016: Heart rate still bit elevated and he appears to be in persistent flutter 06/23/2016: Persistent atrial flutter. 07/21/2016: Atrial flutter persists. His rate is controlled but still requiring IV Cardizem. 07/22/2016: Patient has controlled rate. Current Visit: No (2) Anemia Status: Chronic Assessment and plan: 06/22/2016: Hematocrit remained stable. Patient has heme positive stool. 07/22/2016: Hematocrit down to 25%. We will transfuse 2 units packed red blood cells per 04/28/2016: Donna's back to 25%. Will transfuse 2 units packed red blood cells and begin iron supplement. Current Visit: Yes (3) Obstructive sleep apnea Problem details: refusing his mask Status: Chronic Assessment and plan: 06/22/2016: Patient apparently refusing to wear his CPAP mask. 06/30/2016: Patient is off the ventilator and is back on his BiPAP. 07/01/2016: Patient is tolerating BiPAP. 07/27/2016: Patient is tolerating his CPAP. Current Visit: Yes (4) Acute pancreatitis Status: Resolved Assessment and plan: 06/22/2016: Patient's pancreatitis has resolved. Current Visit: Yes Qualifiers: Pancreatitis type: alcohol induced (5) Aspiration pneumonitis Status: Resolved Assessment and plan: 06/23/2016: Have ordered 40 of Lasix. Blood cultures have been ordered. Will ask pulmonary to see as well. 06/28/2016: Patient is doing well in the event, is not tolerating weaning and will probably need LTAC. 06/29/2016: Patient is slowly improving. Will consult upper caser for LTAC. 06/30/2016: Patient is now off the ventilator. He will need long-term care facility. His long-term prognosis is very poor 07/01/2016: Patient's chest x-ray is improved this morning. Patient will require LTAC. Current Visit: Yes (6) Encephalopathy Status: Chronic Assessment and plan: 07/05/2016: Patient's encephalopathy persists. Patient is going to require long- term care and [facility]'s been consulted if his insurance will cooperate. 07/06/2016: Patient's neuro status is unchanged. 07/07/2016: Patient's neuro status is unchanged. I have asked Dr. Garcia to see him concerning his persistent encephalopathy. 07/19/2016: Patient's neuro status is unchanged. PEG tube placement is being considered and he will need a prison bed. 07/20/2016: Patient scheduled for PEG tube placement today and prison placement follow. 07/21/2016: Patient is more alert today and makes eye contact. 07/22/2016: Patient's sensorium is unchanged. I am going to repeat his ammonia level today. 07/23/2016: Patient's sensorium is unchanged. Ammonia level yesterday was 21. 07/26/2016: Patient's sensorium is unchanged. 07/27/2016: Patient's sensorium is unchanged. Patient's told me that he was responsive and much more alert 2 days ago. 07/28/2016: half-way placement is still pending. Current Visit: Yes (7) Respiratory arrest Status: Suspected Assessment and plan: 07/06/2016: Patient's chest x-ray is much improved. He certainly had extensive mucous plugging in his right chest. 07/07/2016: Patient is stable with ventilator support. Hopefully he can be weaned from the ventilator soon. His has made him a DNR. Current Visit: Yes Quality Measures - VTE Contraindication to Pharmacological VTE Prophylaxis: Active Bleeding
[2016-07-28] MEDS: LEVOTHYROXINE 75 MCG TABLET PO SCH (08:50)
[2016-07-28] MEDS: DILTIAZEM 60 MG TABLET PO SCH ×4 (08:50→20:56)
[2016-07-28] MEDS: MIDODRINE 5 MG TABLET PO SCH ×3 (08:51→20:55)
[2016-07-28] MEDS: FERROUS SULFATE 300 MG/5 ML UDCUP PO SCH ×2 (08:51→20:55)
[2016-07-28] MEDS: NYSTATIN CREAM 15 GM TUBE TOP SCH ×2 (08:52→20:58)
[2016-07-28] MEDS: DESITIN 4OZ/NYSTATIN 15 GRAM MIXTURE PASTE TOP SCH ×2 (09:04→20:57)
[2016-07-28] MEDS: ENOXAPARIN 40 MG/0.4 ML SYRINGE SUBCUT SCH (20:55)
[2016-07-29] MEDS: LEVALBUTEROL 1.25 MG/3 ML NEB RESP TX SCH ×4 (00:39→20:01)
[2016-07-29] MEDS: DEXTROSE 5% 1,000 ML IV SCH (01:22)
[2016-07-29] MEDS: METOCLOPRAMIDE 10 MG/2 ML VIAL IV SCH ×3 (01:22→16:51)
[2016-07-29] MEDS: INSULIN REGULAR 100 UNIT/ML SUBCUT SCH ×3 (06:00→18:29)
[2016-07-29] MEDS: PIPERACILLIN/TAZOBACTAM 3,375 MG in SODIUM CHLORIDE 0.9% 100 ML IV SCH ×2 (07:40→19:19)
[2016-07-29] MEDS: LEVOTHYROXINE 75 MCG TABLET PO SCH (09:46)
[2016-07-29] MEDS: FERROUS SULFATE 300 MG/5 ML UDCUP PO SCH ×2 (09:47→21:11)
[2016-07-29] MEDS: DILTIAZEM 60 MG TABLET PO SCH ×4 (09:47→21:02)
[2016-07-29] MEDS: METOPROLOL TARTRATE 25 MG TABLET PO SCH ×2 (09:48→21:04)
[2016-07-29] MEDS: DESITIN 4OZ/NYSTATIN 15 GRAM MIXTURE PASTE TOP SCH ×2 (09:49→22:41)
[2016-07-29] MEDS: MIDODRINE 5 MG TABLET PO SCH ×3 (09:49→21:04)
[2016-07-29 09:53] LABS: Basophils % 0.4 % (0.0-0.8); Eosinophils # 0.5 10*3/uL (0.0-0.87); Eosinophils % 5.5 % (0.00-10.9); Hematocrit 25.7 VOL% (42.0-52.0); Hemoglobin 9.1 GM/DL (14.0-18.0); Immature Granulocytes % 0.8 %; Immature Granulocytes Absolute 0.07 #; Lymphocytes # 1.5 10*3/uL (1.4-4.0); Lymphocytes % 18.3 % (21.2-54.2); Mean Corpuscular HGB Conc 35.4 GM/DL (32-36); Mean Corpuscular Hemoglobin 31 PG (27-34); Mean Corpuscular Volume 87.4 FL (87-102); Mean Platelet Volume 11.2 FL (9.6-12.0); Monocytes # 1.1 10*3/uL (0.11-0.8); Monocytes % 12.9 % (1.7-12.7); Neutrophils # 5.2 10*3/uL (1.4-7.4); Neutrophils % 62.1 % (38.7-73.9); Platelet Count 102 T/CUMM (130-400); Red Blood Count 2.94 MC/CUMM (3.8-5.5); Red Cell Distribution Width 15.5 % (9.3-17.3); White Blood Count 8.3 T/CUMM (4-12)
[2016-07-29] MEDS: NYSTATIN CREAM 15 GM TUBE TOP SCH ×2 (09:55→22:41)
[2016-07-29 10:16] LABS: Magnesium 1.6 MG/DL (1.8-2.4); Phosphorous 3.3 MG/DL (2.5-4.9); Prealbumin 11.7 MG/DL (20-40)
[2016-07-29 10:32] LABS: Eosinophils 4 % (0-10); Hypochromasia 1+; Lymphocytes 13 % (20-55); Nucleated Red Blood Cells 1 (0-5); Platelet Estimate Decreased; Segmented Neutrophils 71 % (50-85); Total Cells Counted 100
[2016-07-29 10:33] LABS: Microcytosis Slight
--- NOTE | 2016-07-29 12:15 | Family Practice Progress Note ---
Family Practice - PN: Subj Interval history: Patient's continues to improve slowly. He is talking to me this morning told me he wants to get out of bed and sit up in chair. He understands the ordeal he has ahead of him to recuperate. He seems to understand this completely. He denies any chest pain or shortness of breath this morning. 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 One care home stated that he did not want because of his history of alcoholism. He is certainly way past withdrawal and does not have any issues with alcohol at this time. That is completely resolved. In his physical therapy and stimulation. I am very hopeful that his intellectual capabilities will return. Exam (Progress Note) - Constitutional Vitals: Period Temp Pulse Resp BP Sys/Mcbride Pulse Ox Last 24 Hr 96.6 F-98.2 F 82-112 18-32 95-132/58-73 94-100 Exam: Objective a well-developed white male who is awake and alert. Is able speak me today and tells me that he wants to get out of the bed. Cardiovascular: Irregular rate without murmurs or gallops. Respiratory: Patient has bilateral rhonchi. He has no dyspnea at rest. He still requiring oxygen. I will repeat his chest x-ray today. Abdomen: Abdomen soft and nontender to palpation. Results - Labs CBC & BMP: 07/26/16 02:05 07/26/16 02:05 Lab Results: I have reviewed the past 24 hour labs Assessment and Plan (1) Atrial flutter Status: Resolved Assessment and plan: 06/22/2016: Heart rate still bit elevated and he appears to be in persistent flutter 06/23/2016: Persistent atrial flutter. 07/21/2016: Atrial flutter persists. His rate is controlled but still requiring IV Cardizem. 07/22/2016: Patient has controlled rate. Current Visit: No (2) Anemia Status: Chronic Assessment and plan: 06/22/2016: Hematocrit remained stable. Patient has heme positive stool. 07/22/2016: Hematocrit down to 25%. We will transfuse 2 units packed red blood cells per 04/28/2016: Donna's back to 25%. Will transfuse 2 units packed red blood cells and begin iron supplement. Current Visit: Yes (3) Obstructive sleep apnea Problem details: refusing his mask Status: Chronic Assessment and plan: 06/22/2016: Patient apparently refusing to wear his CPAP mask. 06/30/2016: Patient is off the ventilator and is back on his BiPAP. 07/01/2016: Patient is tolerating BiPAP. 07/27/2016: Patient is tolerating his CPAP. Current Visit: Yes (4) Acute pancreatitis Status: Resolved Assessment and plan: 06/22/2016: Patient's pancreatitis has resolved. Current Visit: Yes Qualifiers: Pancreatitis type: alcohol induced (5) Aspiration pneumonitis Status: Resolved Assessment and plan: 06/23/2016: Have ordered 40 of Lasix. Blood cultures have been ordered. Will ask pulmonary to see as well. 06/28/2016: Patient is doing well in the event, is not tolerating weaning and will probably need LTAC. 06/29/2016: Patient is slowly improving. Will consult window caser for LTAC. 06/30/2016: Patient is now off the ventilator. He will need long-term care facility. His long-term prognosis is very poor 07/01/2016: Patient's chest x-ray is improved this morning. Patient will require LTAC. Current Visit: Yes (6) Encephalopathy Status: Chronic Assessment and plan: 07/05/2016: Patient's encephalopathy persists. Patient is going to require long- term care and [facility]'s been consulted if his insurance will cooperate. 07/06/2016: Patient's neuro status is unchanged. 07/07/2016: Patient's neuro status is unchanged. I have asked Dr. Garcia to see him concerning his persistent encephalopathy. 07/19/2016: Patient's neuro status is unchanged. PEG tube placement is being considered and he will need a care home bed. 07/20/2016: Patient scheduled for PEG tube placement today and care home placement follow. 07/21/2016: Patient is more alert today and makes eye contact. 07/22/2016: Patient's sensorium is unchanged. I am going to repeat his ammonia level today. 07/23/2016: Patient's sensorium is unchanged. Ammonia level yesterday was 21. 07/26/2016: Patient's sensorium is unchanged. 07/27/2016: Patient's sensorium is unchanged. Patient's told me that he was responsive and much more alert 2 days ago. 07/28/2016: long-term placement is still pending. Current Visit: Yes (7) Respiratory arrest Status: Resolved Assessment and plan: 07/06/2016: Patient's chest x-ray is much improved. He certainly had extensive mucous plugging in his right chest. 07/07/2016: Patient is stable with ventilator support. Hopefully he can be weaned from the ventilator soon. His has made him a DNR. Current Visit: Yes Quality Measures - VTE Contraindication to Pharmacological VTE Prophylaxis: Active Bleeding
--- NOTE | 2016-07-29 14:04 | XRay Report ---
Portable chest Date: 07/29/2016 Clinical history: Shortness of breath Comparison: 07/27/2016 Technique: Portable AP sitting chest Findings: Stable cardiomegaly, and left subclavian atrioventricular permanent pacemaker and right arm PICC line. Minimally reduced parenchymal findings at the lung bases with minimal decrease in the size of the left pleural effusion. Stable mediastinum and osseous structures. Impression: Persistent cardiomegaly with stable right arm PICC line and left subclavian atrioventricular permanent pacemaker. Reduced bibasilar atelectasis/infiltration/edema with minimally smaller left pleural effusion. PROCEDURE INTERPRETED AT [facility] DEPARTMENT OF RADIOLOGY Final Report Signed by: Dr. Susan Lawrence
[2016-07-29] MEDS: MAGNESIUM SULF RIDER 2 GM in PREMIX 1 EACH IV PRN (16:54)
[2016-07-29] MEDS: ENOXAPARIN 40 MG/0.4 ML SYRINGE SUBCUT SCH (21:11)
[2016-07-30] MEDS: INSULIN REGULAR 100 UNIT/ML SUBCUT SCH ×4 (00:14→18:32)
[2016-07-30] MEDS: METOCLOPRAMIDE 10 MG/2 ML VIAL IV SCH ×3 (00:34→17:52)
[2016-07-30] MEDS: LEVALBUTEROL 1.25 MG/3 ML NEB RESP TX SCH ×4 (01:23→19:02)
[2016-07-30] MEDS: DEXTROSE 5% 1,000 ML IV SCH ×2 (02:34→18:32)
[2016-07-30] MEDS: PIPERACILLIN/TAZOBACTAM 3,375 MG in SODIUM CHLORIDE 0.9% 100 ML IV SCH ×3 (04:04→20:45)
[2016-07-30] MEDS: LEVOTHYROXINE 75 MCG TABLET PO SCH (06:31)
[2016-07-30 06:55] LABS: Basophils % 0.3 % (0.0-0.8); Eosinophils # 0.3 10*3/uL (0.0-0.87); Eosinophils % 2.8 % (0.00-10.9); Hemoglobin 10.3 GM/DL (14.0-18.0); Immature Granulocytes % 1.7 %; Immature Granulocytes Absolute 0.16 #; Lymphocytes # 1.2 10*3/uL (1.4-4.0); Lymphocytes % 12.5 % (21.2-54.2); Mean Corpuscular HGB Conc 35.5 GM/DL (32-36); Mean Corpuscular Hemoglobin 31 PG (27-34); Mean Corpuscular Volume 86.3 FL (87-102); Mean Platelet Volume 11.8 FL (9.6-12.0); Monocytes # 1.5 10*3/uL (0.11-0.8); Monocytes % 16.7 % (1.7-12.7); Neutrophils # 6.1 10*3/uL (1.4-7.4); Platelet Count 133 T/CUMM (130-400); Red Blood Count 3.36 MC/CUMM (3.8-5.5); Red Cell Distribution Width 15.1 % (9.3-17.3); White Blood Count 9.2 T/CUMM (4-12)
[2016-07-30 07:24] LABS: Eosinophils 5 % (0-10); Hypochromasia Slight; Lymphocytes 7 % (20-55); Microcytosis Slight; Ovalocytes Slight; Platelet Estimate Normal; Segmented Neutrophils 71 % (50-85); Total Cells Counted 100
--- NOTE | 2016-07-30 08:00 | Family Practice Progress Note ---
Family Practice - PN: Subj Interval history: Patient had good night according to nursing staff. We are still trying to find him a intermediate bed but this has proven to be a insurmountable task to this point. Patient is awake and alert but speech is incoherent this morning. Exam (Progress Note) - Constitutional Vitals: Period Temp Pulse Resp BP Sys/Mcbride Pulse Ox Last 24 Hr 97.6 F-98.4 F 83-138 16-32 97-155/72-91 94-100 Exam: Objective a well-developed white male who is awake and alert. Speech is incoherent this morning. Cardiovascular: Irregular rate without murmurs or gallops. Respiratory: Patient has bilateral rhonchi. He has no dyspnea at rest. He still requiring oxygen. Repeat chest x-ray yesterday showed improvement. Abdomen: Abdomen soft and nontender to palpation. Results - Labs CBC & BMP: 07/30/16 05:33 07/26/16 02:05 Lab Results: I have reviewed the past 24 hour labs Assessment and Plan (1) Atrial flutter Status: Resolved Assessment and plan: 06/22/2016: Heart rate still bit elevated and he appears to be in persistent flutter 06/23/2016: Persistent atrial flutter. 07/21/2016: Atrial flutter persists. His rate is controlled but still requiring IV Cardizem. 07/22/2016: Patient has controlled rate. Current Visit: No (2) Anemia Status: Chronic Assessment and plan: 06/22/2016: Hematocrit remained stable. Patient has heme positive stool. 07/22/2016: Hematocrit down to 25%. We will transfuse 2 units packed red blood cells per 04/28/2016: Donna's back to 25%. Will transfuse 2 units packed red blood cells and begin iron supplement. Current Visit: Yes (3) Obstructive sleep apnea Problem details: refusing his mask Status: Chronic Assessment and plan: 06/22/2016: Patient apparently refusing to wear his CPAP mask. 06/30/2016: Patient is off the ventilator and is back on his BiPAP. 07/01/2016: Patient is tolerating BiPAP. 07/27/2016: Patient is tolerating his CPAP. Current Visit: Yes (4) Acute pancreatitis Status: Resolved Assessment and plan: 06/22/2016: Patient's pancreatitis has resolved. Current Visit: Yes Qualifiers: Pancreatitis type: alcohol induced (5) Aspiration pneumonitis Status: Resolved Assessment and plan: 06/23/2016: Have ordered 40 of Lasix. Blood cultures have been ordered. Will ask pulmonary to see as well. 06/28/2016: Patient is doing well in the event, is not tolerating weaning and will probably need LTAC. 06/29/2016: Patient is slowly improving. Will consult telehealth case manager for LTAC. 06/30/2016: Patient is now off the ventilator. He will need long-term care facility. His long-term prognosis is very poor 07/01/2016: Patient's chest x-ray is improved this morning. Patient will require LTAC. Current Visit: Yes (6) Encephalopathy Status: Chronic Assessment and plan: 07/05/2016: Patient's encephalopathy persists. Patient is going to require long- term care and [facility]'s been consulted if his insurance will cooperate. 07/06/2016: Patient's neuro status is unchanged. 07/07/2016: Patient's neuro status is unchanged. I have asked Dr. Garcia to see him concerning his persistent encephalopathy. 07/19/2016: Patient's neuro status is unchanged. PEG tube placement is being considered and he will need a intermediate bed. 07/20/2016: Patient scheduled for PEG tube placement today and intermediate placement follow. 07/21/2016: Patient is more alert today and makes eye contact. 07/22/2016: Patient's sensorium is unchanged. I am going to repeat his ammonia level today. 07/23/2016: Patient's sensorium is unchanged. Ammonia level yesterday was 21. 07/26/2016: Patient's sensorium is unchanged. 07/27/2016: Patient's sensorium is unchanged. Patient's told me that he was responsive and much more alert 2 days ago. 07/28/2016: [facility] placement is still pending. 07/29/2016: No change in patient's neurological status. 07/30/2016: We are still seeking a intermediate bed for him. Current Visit: Yes (7) Respiratory arrest Status: Resolved Assessment and plan: 07/06/2016: Patient's chest x-ray is much improved. He certainly had extensive mucous plugging in his right chest. 07/07/2016: Patient is stable with ventilator support. Hopefully he can be weaned from the ventilator soon. His has made him a DNR. Current Visit: Yes Quality Measures - VTE Contraindication to Pharmacological VTE Prophylaxis: Active Bleeding
[2016-07-30] MEDS: MIDODRINE 5 MG TABLET PO SCH ×3 (11:21→20:48)
[2016-07-30] MEDS: FERROUS SULFATE 300 MG/5 ML UDCUP PO SCH ×2 (11:21→20:47)
[2016-07-30] MEDS: DILTIAZEM 60 MG TABLET PO SCH ×4 (11:22→20:47)
[2016-07-30] MEDS: NYSTATIN CREAM 15 GM TUBE TOP SCH ×2 (11:26→20:48)
[2016-07-30] MEDS: DESITIN 4OZ/NYSTATIN 15 GRAM MIXTURE PASTE TOP SCH ×2 (11:26→20:48)
[2016-07-30] MEDS: METOPROLOL TARTRATE 25 MG TABLET PO SCH ×2 (11:26→20:48)
[2016-07-30] MEDS: KETOCONAZOLE 2% SHAMPOO 120 ML BOTTLE TOP SCH (20:48)
[2016-07-30] MEDS: ENOXAPARIN 40 MG/0.4 ML SYRINGE SUBCUT SCH (20:49)
[2016-07-31] MEDS: LEVALBUTEROL 1.25 MG/3 ML NEB RESP TX SCH ×4 (00:20→20:16)
[2016-07-31] MEDS: METOCLOPRAMIDE 10 MG/2 ML VIAL IV SCH ×3 (01:32→16:07)
[2016-07-31] MEDS: INSULIN REGULAR 100 UNIT/ML SUBCUT SCH ×4 (03:10→19:03)
[2016-07-31] MEDS: DEXTROSE 5% 1,000 ML IV SCH ×2 (03:43→11:27)
[2016-07-31] MEDS: PIPERACILLIN/TAZOBACTAM 3,375 MG in SODIUM CHLORIDE 0.9% 100 ML IV SCH ×3 (05:15→20:32)
--- NOTE | 2016-07-31 07:19 | Family Practice Progress Note ---
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 He is awake and alert this morning. Speech is still somewhat garbled. There is some delay in getting him a nursing bed as there are some funds his will be responsible for and apparently this is the delay. Exam (Progress Note) - Constitutional Vitals: Period Temp Pulse Resp BP Sys/Mcbride Pulse Ox Last 24 Hr 97.8 F-98.8 F 108-156 18-36 97-153/64-101 95-100 Exam: Objective a well-developed white male who is awake and alert. Speech is incoherent this morning. Cardiovascular: Irregular rate without murmurs or gallops. Respiratory: Patient has bilateral rhonchi. He has no dyspnea at rest. He still requiring oxygen. Abdomen: Abdomen soft and nontender to palpation. Results - Labs CBC & BMP: 07/30/16 05:33 07/26/16 02:05 Assessment and Plan (1) Atrial flutter Status: Resolved Assessment and plan: 06/22/2016: Heart rate still bit elevated and he appears to be in persistent flutter 06/23/2016: Persistent atrial flutter. 07/21/2016: Atrial flutter persists. His rate is controlled but still requiring IV Cardizem. 07/22/2016: Patient has controlled rate. Current Visit: No (2) Anemia Status: Chronic Assessment and plan: 06/22/2016: Hematocrit remained stable. Patient has heme positive stool. 07/22/2016: Hematocrit down to 25%. We will transfuse 2 units packed red blood cells per 04/28/2016: Donna's back to 25%. Will transfuse 2 units packed red blood cells and begin iron supplement. Current Visit: Yes (3) Obstructive sleep apnea Problem details: refusing his mask Status: Chronic Assessment and plan: 06/22/2016: Patient apparently refusing to wear his CPAP mask. 06/30/2016: Patient is off the ventilator and is back on his BiPAP. 07/01/2016: Patient is tolerating BiPAP. 07/27/2016: Patient is tolerating his CPAP. Current Visit: Yes (4) Acute pancreatitis Status: Resolved Assessment and plan: 06/22/2016: Patient's pancreatitis has resolved. Current Visit: Yes Qualifiers: Pancreatitis type: alcohol induced (5) Aspiration pneumonitis Status: Resolved Assessment and plan: 06/23/2016: Have ordered 40 of Lasix. Blood cultures have been ordered. Will ask pulmonary to see as well. 06/28/2016: Patient is doing well in the event, is not tolerating weaning and will probably need LTAC. 06/29/2016: Patient is slowly improving. Will consult disease case manager for LTAC. 06/30/2016: Patient is now off the ventilator. He will need long-term care facility. His long-term prognosis is very poor 07/01/2016: Patient's chest x-ray is improved this morning. Patient will require LTAC. Current Visit: Yes (6) Encephalopathy Status: Chronic Assessment and plan: 07/05/2016: Patient's encephalopathy persists. Patient is going to require long- term care and [facility] been consulted if his insurance will cooperate. 07/06/2016: Patient's neuro status is unchanged. 07/07/2016: Patient's neuro status is unchanged. I have asked Dr. Garcia to see him concerning his persistent encephalopathy. 07/19/2016: Patient's neuro status is unchanged. PEG tube placement is being considered and he will need a longterm bed. 07/20/2016: Patient scheduled for PEG tube placement today and longterm placement follow. 07/21/2016: Patient is more alert today and makes eye contact. 07/22/2016: Patient's sensorium is unchanged. I am going to repeat his ammonia level today. 07/23/2016: Patient's sensorium is unchanged. Ammonia level yesterday was 21. 07/26/2016: Patient's sensorium is unchanged. 07/27/2016: Patient's sensorium is unchanged. Patient's told me that he was responsive and much more alert 2 days ago. 07/28/2016: retirement placement is still pending. 07/29/2016: No change in patient's neurological status. 07/30/2016: We are still seeking a longterm bed for him. 07/31/2016: Patient is definitely showed some improvement but is still going to require long-term care. Current Visit: Yes (7) Respiratory arrest Status: Resolved Assessment and plan: 07/06/2016: Patient's chest x-ray is much improved. He certainly had extensive mucous plugging in his right chest. 07/07/2016: Patient is stable with ventilator support. Hopefully he can be weaned from the ventilator soon. His has made him a DNR. Current Visit: Yes Quality Measures - VTE Contraindication to Pharmacological VTE Prophylaxis: Active Bleeding
[2016-07-31] MEDS: DILTIAZEM 60 MG TABLET PO SCH ×4 (11:07→20:32)
[2016-07-31] MEDS: METOPROLOL TARTRATE 25 MG TABLET PO SCH ×2 (11:08→20:35)
[2016-07-31] MEDS: LEVOTHYROXINE 75 MCG TABLET PO SCH (11:14)
[2016-07-31] MEDS: FERROUS SULFATE 300 MG/5 ML UDCUP PO SCH ×2 (11:25→20:32)
[2016-07-31] MEDS: MIDODRINE 5 MG TABLET PO SCH ×3 (11:25→20:35)
[2016-07-31] MEDS: NYSTATIN CREAM 15 GM TUBE TOP SCH ×2 (11:26→20:36)
[2016-07-31] MEDS: DESITIN 4OZ/NYSTATIN 15 GRAM MIXTURE PASTE TOP SCH ×2 (11:26→20:36)
[2016-07-31] MEDS: ENOXAPARIN 40 MG/0.4 ML SYRINGE SUBCUT SCH (20:32)
[2016-08-01] MEDS: INSULIN REGULAR 100 UNIT/ML SUBCUT SCH ×4 (00:02→17:52)
[2016-08-01] MEDS: LEVALBUTEROL 1.25 MG/3 ML NEB RESP TX SCH ×4 (00:41→19:03)
[2016-08-01] MEDS: METOCLOPRAMIDE 10 MG/2 ML VIAL IV SCH ×3 (02:17→16:19)
[2016-08-01] MEDS: PIPERACILLIN/TAZOBACTAM 3,375 MG in SODIUM CHLORIDE 0.9% 100 ML IV SCH (04:58)
--- NOTE | 2016-08-01 07:37 | Family Practice Progress Note ---
Family Practice - PN: Subj Interval history: Patient had good night according the nursing staff and is more responsive this morning. We are still awaiting a detention bed availability. Exam (Progress Note) - Constitutional Vitals: Period Temp Pulse Resp BP Sys/Mcbride Pulse Ox Last 24 Hr 96.7 F-99.0 F 82-126 19-24 102-145/62-80 96-100 Exam: Objective a well-developed white male who is awake and alert. Speech is more clear this morning Cardiovascular: Irregular rate without murmurs or gallops. Respiratory: Patient has bilateral rhonchi. He has no dyspnea at rest. He still requiring oxygen. Abdomen: Abdomen soft and nontender to palpation. Results - Labs CBC & BMP: 07/30/16 05:33 07/26/16 02:05 Lab Results: I have reviewed the past 24 hour labs Labs: Urine culture shows E. coli sensitive to Rocephin. We will switch him to this antibiotic Assessment and Plan (1) Atrial flutter Status: Resolved Assessment and plan: 06/22/2016: Heart rate still bit elevated and he appears to be in persistent flutter 06/23/2016: Persistent atrial flutter. 07/21/2016: Atrial flutter persists. His rate is controlled but still requiring IV Cardizem. 07/22/2016: Patient has controlled rate. Current Visit: No (2) Anemia Status: Chronic Assessment and plan: 06/22/2016: Hematocrit remained stable. Patient has heme positive stool. 07/22/2016: Hematocrit down to 25%. We will transfuse 2 units packed red blood cells per 04/28/2016: Donna's back to 25%. Will transfuse 2 units packed red blood cells and begin iron supplement. Current Visit: Yes (3) Obstructive sleep apnea Problem details: refusing his mask Status: Chronic Assessment and plan: 06/22/2016: Patient apparently refusing to wear his CPAP mask. 06/30/2016: Patient is off the ventilator and is back on his BiPAP. 07/01/2016: Patient is tolerating BiPAP. 07/27/2016: Patient is tolerating his CPAP. Current Visit: Yes (4) Acute pancreatitis Status: Resolved Assessment and plan: 06/22/2016: Patient's pancreatitis has resolved. Current Visit: Yes Qualifiers: Pancreatitis type: alcohol induced (5) Aspiration pneumonitis Status: Resolved Assessment and plan: 06/23/2016: Have ordered 40 of Lasix. Blood cultures have been ordered. Will ask pulmonary to see as well. 06/28/2016: Patient is doing well in the event, is not tolerating weaning and will probably need LTAC. 06/29/2016: Patient is slowly improving. Will consult patient case manager for LTAC. 06/30/2016: Patient is now off the ventilator. He will need long-term care facility. His long-term prognosis is very poor 07/01/2016: Patient's chest x-ray is improved this morning. Patient will require LTAC. Current Visit: Yes (6) Encephalopathy Status: Chronic Assessment and plan: 07/05/2016: Patient's encephalopathy persists. Patient is going to require long- term care and [facility]'s been consulted if his insurance will cooperate. 07/06/2016: Patient's neuro status is unchanged. 07/07/2016: Patient's neuro status is unchanged. I have asked Dr. Garcia to see him concerning his persistent encephalopathy. 07/19/2016: Patient's neuro status is unchanged. PEG tube placement is being considered and he will need a detention bed. 07/20/2016: Patient scheduled for PEG tube placement today and detention placement follow. 07/21/2016: Patient is more alert today and makes eye contact. 07/22/2016: Patient's sensorium is unchanged. I am going to repeat his ammonia level today. 07/23/2016: Patient's sensorium is unchanged. Ammonia level yesterday was 21. 07/26/2016: Patient's sensorium is unchanged. 07/27/2016: Patient's sensorium is unchanged. Patient's told me that he was responsive and much more alert 2 days ago. 07/28/2016: snf placement is still pending. 07/29/2016: No change in patient's neurological status. 07/30/2016: We are still seeking a detention bed for him. 07/31/2016: Patient is definitely showed some improvement but is still going to require long-term care. 08/01/2016: Patient is making some headway and hopefully will continue to improve. Current Visit: Yes (7) Respiratory arrest Status: Resolved Assessment and plan: 07/06/2016: Patient's chest x-ray is much improved. He certainly had extensive mucous plugging in his right chest. 07/07/2016: Patient is stable with ventilator support. Hopefully he can be weaned from the ventilator soon. His has made him a DNR. Current Visit: Yes Quality Measures - VTE Contraindication to Pharmacological VTE Prophylaxis: Active Bleeding
[2016-08-01] MEDS: DILTIAZEM 60 MG TABLET PO SCH ×4 (10:25→21:28)
[2016-08-01] MEDS: LEVOTHYROXINE 75 MCG TABLET PO SCH (10:26)
[2016-08-01] MEDS: MIDODRINE 5 MG TABLET PO SCH ×3 (10:26→21:26)
[2016-08-01] MEDS: METOPROLOL TARTRATE 25 MG TABLET PO SCH ×2 (10:26→21:26)
[2016-08-01] MEDS: FERROUS SULFATE 300 MG/5 ML UDCUP PO SCH ×2 (10:26→21:27)
[2016-08-01] MEDS: NYSTATIN CREAM 15 GM TUBE TOP SCH ×2 (10:27→21:29)
[2016-08-01] MEDS: cefTRIAXone 1,000 MG in SODIUM CHLORIDE 0.9% 100 ML IV SCH (10:27)
[2016-08-01] MEDS: DESITIN 4OZ/NYSTATIN 15 GRAM MIXTURE PASTE TOP SCH ×2 (10:27→21:29)
[2016-08-01] MEDS: DEXTROSE 5% 1,000 ML IV SCH (10:43)
[2016-08-01] MEDS: ENOXAPARIN 40 MG/0.4 ML SYRINGE SUBCUT SCH (21:27)
[2016-08-02] MEDS: DEXTROSE 5% 1,000 ML IV SCH (01:00)
[2016-08-02] MEDS: LEVALBUTEROL 1.25 MG/3 ML NEB RESP TX SCH ×4 (01:30→19:30)
[2016-08-02] MEDS: METOCLOPRAMIDE 10 MG/2 ML VIAL IV SCH ×3 (02:28→16:16)
[2016-08-02] MEDS: INSULIN REGULAR 100 UNIT/ML SUBCUT SCH ×4 (06:15→19:09)
[2016-08-02 06:28] LABS: Calcium 9.1 MG/DL (8.5-10.1); Osmolality,Calculated 280.5 MOS/KG (273-304); Phosphorous 3.9 MG/DL (2.5-4.9); Potassium 3.8 MMOL/L (3.5-5.1); Prealbumin 11.3 MG/DL (20-40)
[2016-08-02] MEDS ORDERED: SODIUM CHLORIDE 0.9% 500 ML IV STA (08:21)
--- NOTE | 2016-08-02 08:24 | Family Practice Progress Note ---
Family Practice - PN: Subj Interval history: Patient is much more alert this morning and able to answer simple questions. I note that he is a bit dehydrated on his BMP today with the BUN of 58 and his creatinines up to 2.3. I am going to give him a bolus of saline and put him on some IV saline as well. They need to start getting him up in a chair as ordered. Exam (Progress Note) - Constitutional Vitals: Period Temp Pulse Resp BP Sys/Mcbride Pulse Ox Last 24 Hr 97.1 F-98.5 F 85-120 18-28 102-136/65-84 94-100 Exam: Objective a well-developed white male who is awake and alert. Patient's more conversational this morning. Cardiovascular: Irregular rate without murmurs or gallops. Respiratory: Patient has bilateral rhonchi. He has no dyspnea at rest. He still requiring oxygen. Abdomen: Abdomen soft and nontender to palpation. Results - Labs CBC & BMP: 07/30/16 05:33 08/02/16 05:05 Lab Results: I have reviewed the past 24 hour labs Assessment and Plan (1) Atrial flutter Status: Resolved Assessment and plan: 06/22/2016: Heart rate still bit elevated and he appears to be in persistent flutter 06/23/2016: Persistent atrial flutter. 07/21/2016: Atrial flutter persists. His rate is controlled but still requiring IV Cardizem. 07/22/2016: Patient has controlled rate. Current Visit: No (2) Anemia Status: Chronic Assessment and plan: 06/22/2016: Hematocrit remained stable. Patient has heme positive stool. 07/22/2016: Hematocrit down to 25%. We will transfuse 2 units packed red blood cells per 04/28/2016: Donna's back to 25%. Will transfuse 2 units packed red blood cells and begin iron supplement. Current Visit: Yes (3) Obstructive sleep apnea Problem details: refusing his mask Status: Chronic Assessment and plan: 06/22/2016: Patient apparently refusing to wear his CPAP mask. 06/30/2016: Patient is off the ventilator and is back on his BiPAP. 07/01/2016: Patient is tolerating BiPAP. 07/27/2016: Patient is tolerating his CPAP. Current Visit: Yes (4) Acute pancreatitis Status: Resolved Assessment and plan: 06/22/2016: Patient's pancreatitis has resolved. Current Visit: Yes Qualifiers: Pancreatitis type: alcohol induced (5) Aspiration pneumonitis Status: Resolved Assessment and plan: 06/23/2016: Have ordered 40 of Lasix. Blood cultures have been ordered. Will ask pulmonary to see as well. 06/28/2016: Patient is doing well in the event, is not tolerating weaning and will probably need LTAC. 06/29/2016: Patient is slowly improving. Will consult manager case for LTAC. 06/30/2016: Patient is now off the ventilator. He will need long-term care facility. His long-term prognosis is very poor 07/01/2016: Patient's chest x-ray is improved this morning. Patient will require LTAC. Current Visit: Yes (6) Encephalopathy Status: Chronic Assessment and plan: 07/05/2016: Patient's encephalopathy persists. Patient is going to require long- term care and [facility]'s been consulted if his insurance will cooperate. 07/06/2016: Patient's neuro status is unchanged. 07/07/2016: Patient's neuro status is unchanged. I have asked Dr. Garcia to see him concerning his persistent encephalopathy. 07/19/2016: Patient's neuro status is unchanged. PEG tube placement is being considered and he will need a detention bed. 07/20/2016: Patient scheduled for PEG tube placement today and detention placement follow. 07/21/2016: Patient is more alert today and makes eye contact. 07/22/2016: Patient's sensorium is unchanged. I am going to repeat his ammonia level today. 07/23/2016: Patient's sensorium is unchanged. Ammonia level yesterday was 21. 07/26/2016: Patient's sensorium is unchanged. 07/27/2016: Patient's sensorium is unchanged. Patient's told me that he was responsive and much more alert 2 days ago. 07/28/2016: custodial placement is still pending. 07/29/2016: No change in patient's neurological status. 07/30/2016: We are still seeking a detention bed for him. 07/31/2016: Patient is definitely showed some improvement but is still going to require long-term care. 08/01/2016: Patient is making some headway and hopefully will continue to improve. 08/02/2016: Patient definitely showing signs of improvement. Current Visit: Yes (7) Respiratory arrest Status: Resolved Assessment and plan: 07/06/2016: Patient's chest x-ray is much improved. He certainly had extensive mucous plugging in his right chest. 07/07/2016: Patient is stable with ventilator support. Hopefully he can be weaned from the ventilator soon. His has made him a DNR. Current Visit: Yes Quality Measures - VTE Contraindication to Pharmacological VTE Prophylaxis: Active Bleeding
[2016-08-02] MEDS: DILTIAZEM 60 MG TABLET PO SCH ×4 (08:35→21:53)
[2016-08-02] MEDS: FERROUS SULFATE 300 MG/5 ML UDCUP PO SCH ×2 (08:35→21:53)
[2016-08-02] MEDS: METOPROLOL TARTRATE 25 MG TABLET PO SCH ×2 (08:35→21:53)
[2016-08-02] MEDS: LEVOTHYROXINE 75 MCG TABLET PO SCH (08:41)
[2016-08-02] MEDS: NYSTATIN CREAM 15 GM TUBE TOP SCH ×2 (09:00→21:55)
[2016-08-02] MEDS: cefTRIAXone 1,000 MG in SODIUM CHLORIDE 0.9% 100 ML IV SCH (09:02)
[2016-08-02] MEDS: SODIUM CHLORIDE 0.9% 1,000 ML IV SCH (09:04)
[2016-08-02] MEDS: DESITIN 4OZ/NYSTATIN 15 GRAM MIXTURE PASTE TOP SCH ×2 (09:05→21:54)
[2016-08-02] MEDS: MIDODRINE 5 MG TABLET PO SCH ×3 (11:16→21:52)
[2016-08-02] MEDS: ENOXAPARIN 40 MG/0.4 ML SYRINGE SUBCUT SCH (21:53)
[2016-08-03] MEDS: LEVALBUTEROL 1.25 MG/3 ML NEB RESP TX SCH ×4 (01:02→14:05)
[2016-08-03] MEDS: INSULIN REGULAR 100 UNIT/ML SUBCUT SCH ×3 (01:41→14:43)
[2016-08-03] MEDS: METOCLOPRAMIDE 10 MG/2 ML VIAL IV SCH ×2 (02:29→09:39)
[2016-08-03] MEDS: SODIUM CHLORIDE 0.9% 1,000 ML IV SCH (05:30)
[2016-08-03 06:40] LABS: Calcium 9.2 MG/DL (8.5-10.1); Osmolality,Calculated 280.7 MOS/KG (273-304); Potassium 4.3 MMOL/L (3.5-5.1)
--- NOTE | 2016-08-03 07:48 | Family Practice Progress Note ---
Family Practice - PN: Subj Interval history: Patient's doing baths same this morning repeat BMP shows persistent elevation of his BUN and creatinine. He also needs little more fluid. He is alert but not very conversant this morning. Exam (Progress Note) - Constitutional Vitals: Period Temp Pulse Resp BP Sys/Mcbride Pulse Ox Last 24 Hr 97.2 F-98.3 F 75-130 17-24 105-153/67-85 93-99 Exam: Objective a well-developed white male who is awake and alert. Patient's less responsive this morning Cardiovascular: Irregular rate without murmurs or gallops. Respiratory: Patient has bilateral rhonchi. He has no dyspnea at rest. He still requiring oxygen. Abdomen: Abdomen soft and nontender to palpation. Results - Labs CBC & BMP: 07/30/16 05:33 08/03/16 05:23 Lab Results: I have reviewed the past 24 hour labs Assessment and Plan (1) Atrial flutter Status: Resolved Assessment and plan: 06/22/2016: Heart rate still bit elevated and he appears to be in persistent flutter 06/23/2016: Persistent atrial flutter. 07/21/2016: Atrial flutter persists. His rate is controlled but still requiring IV Cardizem. 07/22/2016: Patient has controlled rate. Current Visit: No (2) Anemia Status: Chronic Assessment and plan: 06/22/2016: Hematocrit remained stable. Patient has heme positive stool. 07/22/2016: Hematocrit down to 25%. We will transfuse 2 units packed red blood cells per 04/28/2016: Donna's back to 25%. Will transfuse 2 units packed red blood cells and begin iron supplement. Current Visit: Yes (3) Obstructive sleep apnea Problem details: refusing his mask Status: Chronic Assessment and plan: 06/22/2016: Patient apparently refusing to wear his CPAP mask. 06/30/2016: Patient is off the ventilator and is back on his BiPAP. 07/01/2016: Patient is tolerating BiPAP. 07/27/2016: Patient is tolerating his CPAP. Current Visit: Yes (4) Acute pancreatitis Status: Resolved Assessment and plan: 06/22/2016: Patient's pancreatitis has resolved. Current Visit: Yes Qualifiers: Pancreatitis type: alcohol induced (5) Aspiration pneumonitis Status: Resolved Assessment and plan: 06/23/2016: Have ordered 40 of Lasix. Blood cultures have been ordered. Will ask pulmonary to see as well. 06/28/2016: Patient is doing well in the event, is not tolerating weaning and will probably need LTAC. 06/29/2016: Patient is slowly improving. Will consult trimming caser for LTAC. 06/30/2016: Patient is now off the ventilator. He will need long-term care facility. His long-term prognosis is very poor 07/01/2016: Patient's chest x-ray is improved this morning. Patient will require LTAC. Current Visit: Yes (6) Encephalopathy Status: Chronic Assessment and plan: 07/05/2016: Patient's encephalopathy persists. Patient is going to require long- term care and [facility] been consulted if his insurance will cooperate. 07/06/2016: Patient's neuro status is unchanged. 07/07/2016: Patient's neuro status is unchanged. I have asked Dr. Garcia to see him concerning his persistent encephalopathy. 07/19/2016: Patient's neuro status is unchanged. PEG tube placement is being considered and he will need a intermediate bed. 07/20/2016: Patient scheduled for PEG tube placement today and intermediate placement follow. 07/21/2016: Patient is more alert today and makes eye contact. 07/22/2016: Patient's sensorium is unchanged. I am going to repeat his ammonia level today. 07/23/2016: Patient's sensorium is unchanged. Ammonia level yesterday was 21. 07/26/2016: Patient's sensorium is unchanged. 07/27/2016: Patient's sensorium is unchanged. Patient's told me that he was responsive and much more alert 2 days ago. 07/28/2016: custodial placement is still pending. 07/29/2016: No change in patient's neurological status. 07/30/2016: We are still seeking a intermediate bed for him. 07/31/2016: Patient is definitely showed some improvement but is still going to require long-term care. 08/01/2016: Patient is making some headway and hopefully will continue to improve. 08/02/2016: Patient definitely showing signs of improvement. 08/03/2016: Patient shows no change. custodial placement is still pending. Current Visit: Yes (7) Respiratory arrest Status: Resolved Assessment and plan: 07/06/2016: Patient's chest x-ray is much improved. He certainly had extensive mucous plugging in his right chest. 07/07/2016: Patient is stable with ventilator support. Hopefully he can be weaned from the ventilator soon. His has made him a DNR. Current Visit: Yes Quality Measures - VTE Contraindication to Pharmacological VTE Prophylaxis: Active Bleeding
[2016-08-03] MEDS: cefTRIAXone 1,000 MG in SODIUM CHLORIDE 0.9% 100 ML IV SCH (09:38)
[2016-08-03] MEDS: FERROUS SULFATE 300 MG/5 ML UDCUP PO SCH (09:40)
[2016-08-03] MEDS: DILTIAZEM 60 MG TABLET PO SCH ×2 (09:40→14:38)
[2016-08-03] MEDS: LEVOTHYROXINE 75 MCG TABLET PO SCH (09:41)
[2016-08-03] MEDS: MIDODRINE 5 MG TABLET PO SCH ×2 (09:41→14:38)
[2016-08-03] MEDS: METOPROLOL TARTRATE 25 MG TABLET PO SCH (09:41)
--- NOTE | 2016-08-03 11:22 | Discharge Summary ---
Hospital Course - Hospital Course Hospital Course: Patient is a 60-year-old white male was admitted to the hospital with altered mental status. Patient was found to have acute hepatic failure with hepatic encephalopathy. Patient had been drinking alcohol heavily for months and according to his could not get out of bed. When he came to the hospital he had a very disheveled appearance and would not respond appropriately to verbal stimuli. Patient was placed in intensive care and had a very stormy hospital course requiring intubation and ventilator support on 2 different occasions. Patient did have aspiration pneumonia and respiratory failure. Patient's encephalopathy failed to improve and his decided to make him a DO NOT RESUSCITATE. Patient was able to eventually improve the point that he was able to go to the floor and had one more episode of severe respiratory distress which improved spontaneously. Patient does also have hypothyroidism and apparently had quit taking his Synthroid prior to coming to the hospital. He was profoundly hypothyroid at that time. Patient now will respond minimally to verbal stimuli and questioning. He is obviously not a candidate for home care any longer unless he improves greatly. Diagnosis - Discharge Diagnosis (1) Atrial flutter Status: Resolved (2) Anemia Status: Chronic (3) Obstructive sleep apnea Status: Chronic (4) Acute pancreatitis Status: Resolved (5) Aspiration pneumonitis Status: Resolved (6) Encephalopathy Status: Chronic (7) Respiratory arrest Status: Resolved Discharge Plan - Discharge Data Disposition: Disch/Xfer to Snf Condition at Discharge: Guarded Discharge Diet: other (Continue tube feedings) Activity: as per physical therapy Hygiene: other (That baths only) Weight Bearing at Discharge: weight bear as tolerated Contact your physician if you experience:: fever over 101 - Discharge Medications New Acetaminophen Tab [Tylenol Tab] 650 mg PO Q6H PRN tablet PRN Reason: Fever > 100.4 Or Headache cephALEXin [Keflex] 500 mg PO Q6HR #30 capsule Ferrous Sulfate Liquid [Feosol Liquid] 300 mg PO BID Glucagon 1 mg IM PRN PRN vial PRN Reason: Hypoglycemia w/o IV access Insulin Regular [HumuLIN R] See Protocol SUBCUT Q6HR unit Ketoconazole 2% Shampoo [Nizoral 2% Shampoo] 1 applic TOP TuFr applic Levothyroxine Tab [Synthroid Tab] 75 mcg PO DAILY tablet Metoclopramide Inj [Reglan Inj] 10 mg IV Q8H vial Metoprolol Tartrate Tab [Lopressor Tab] 25 mg PO BID tablet Midodrine [Proamatine] 10 mg PO TID tablet Diltiazem Tab [Cardizem Tab] 60 mg PO QID tablet Levalbuterol Neb [Xopenex Neb] 1.25 mg RESP TX RT Q6H Nystatin Cream [Mycostatin Cream] 1 applic TOP BID applic Continue Apixaban [Eliquis] 5 mg PO BID #60 tablet Aspirin Chew Tab 81 mg PO DAILY tablet Magnesium Oxide 800 mg PO BID #60 tablet Nitroglycerin Sl Tab [Nitrostat] 0.4 mg SL Q5M PRN #30 tablet PRN Reason: Chest Pain Sotalol [Betapace] 80 mg PO BID #60 tablet Spironolactone [Aldactone] 50 mg PO DAILY #30 tablet Levothyroxine Tab [Synthroid Tab] 75 mcg PO DAILY@0700 Potassium Chloride 20 meq PO BID Discontinued Losartan [Cozaar] 25 mg PO DAILY #30 tablet Diltiazem Cd Cap [Cardizem CD] 180 mg PO DAILY #30 capsule Furosemide Tab [Lasix Tab] 40 mg PO BID DIURETIC #60 tablet Furosemide [Lasix] 40 mg PO BID - Follow Up or Referral - Forms/Instructions Exam - Constitutional Vitals: Period Temp Pulse Resp BP Sys/Mcbride Pulse Ox Last 24 Hr 97.2 F-98.3 F 86-138 17-24 105-153/67-85 93-99 Exam: Objective a well-developed white male who is awake and alert. Patient's less responsive this morning Cardiovascular: Irregular rate without murmurs or gallops. Respiratory: Patient has bilateral rhonchi. He has no dyspnea at rest. He still requiring oxygen. Abdomen: Abdomen soft and nontender to palpation. Discharge Results Procedures and tests throughout hospitalization: Pending Orders 06/23/16 09:20 Occult Blood, Stool Routine 06/25/16 AFB Culture/Smears Routine Fungal Culture w/ Prep Routine 07/22/16 07:40 Occult Blood, Stool Routine 07/26/16 02:03 Red Blood Cells Leuko Red Stat Type and Screen Stat 08/05/16 04:00 Basic Metabolic Panel MOTH Magnesium MOTH Phosphorous MOTH Prealbumin MOTH Labs on day of discharge: Labs from last 24 hours 08/03/16 08/03/16 08/03/16 07:14 06:26 05:23 Sodium 131 L Potassium 4.3 Chloride 98 Carbon Dioxide 19 L Anion Gap 18.3 H BUN 65 H Creatinine 2.40 H GFR Calculation 36 BUN/Creatinine Ratio 27.00 H Glucose 92 POC Glucose 105 97 Calculated Osmolality 280.7 Calcium 9.2 08/03/16 08/02/16 08/02/16 00:08 17:33 11:53 Sodium Potassium Chloride Carbon Dioxide Anion Gap BUN Creatinine GFR Calculation BUN/Creatinine Ratio Glucose POC Glucose 107 H 100 121 H Calculated Osmolality Calcium Preliminary micro results at discharge 06/25/16 Unknown Fungal Culture - Preliminary Bronchial Washings No Fungus isolated at 5 weeks 06/25/16 Unknown Mycobacterial Culture - Preliminary Bronchial Washings No AFB isolated at 4 weeks DS: Provider Date of admission: 06/15/16 18:49 Primary care physician: . No PCP Attending physician on admission: Yair Reyes MD Consults: 06/15/16 19:40 Consult to Case Mgmt/Social Srvs [CONS] Routine Reason for Case Mgmt/Social Srvs: Discharge Planning Consult to Physician [CONS] Routine Comment: GI bleed Consulting Provider: Darryl Ray Consulting Provider Notified: Yes When should Consulting Provider be notified: In am Consult to Specialist Group: Gastroenterology Person Notified: SD Date Notified: 06/16/16 Time Notified: 09:00 06/15/16 19:48 Consult to Pharmacy [CONS] Routine Reason for Pharmacy Consult: Adjust Meds Renal Funct 06/15/16 20:10 Consult to Physician [CONS] Routine Comment: Consulting Provider: Paris Awad Consulting Provider Notified: Yes Person Notified: DAINELE Date Notified: 06/16/16 Time Notified: 08:10 06/15/16 20:12 Consult to Dietitian [CONS] Routine Reason for Dietitian: Diet Recommendations Consult Comment: weight loss/ pancreatitis 06/15/16 23:01 Consult to Physician [CONS] Routine Comment: renal failure (hepatorenal syndrome) Consulting Provider: Rosalio Gasca Consulting Provider Notified: Yes Consult to Specialist Group: Nephrology Person Notified: SILVIANO Date Notified: 06/16/16 Time Notified: 09:00 06/20/16 15:00 Consult to Physician [CONS] Routine Comment: refractory tachycardia; consult for Tuesday Consulting Provider: Maxine Drake 06/23/16 07:00 Consult to Physician [CONS] Routine Comment: Consulting Provider: Faustino Garcia Consult Notification Comment: DR CARRASCO SAID THAT PULMONARY DOES NOT NEED TO SEE PT TODAY. MUST HAVE BEEN THROUGH THE TRANSFER ORDERS. 06/23/16 16:27 Consult to Dietitian [CONS] Routine Reason for Dietitian: TF-Initiate/Manage 06/29/16 07:48 Consult to Case Mgmt/Social Srvs [CONS] Routine Reason for Case Mgmt/Social Srvs: LTAC 06/29/16 11:09 Consult to Sleep Center [CONS] Routine Reason for Sleep Center: Other Consult Comment: resume autopap 5-20 full face quatro sz medium 07/05/16 13:11 Consult to Anesthesiology [CONS] Routine Consulting Provider: Reason for Anesthesiology: Intubation 07/06/16 06:53 Consult to Dietitian [CONS] Routine Reason for Dietitian: TF-Initiate/Manage 07/06/16 17:00 Consult to Physician [CONS] Routine Comment: Please evaluate for possible jejunostomy tube Consulting Provider: [facility] Consulting Provider Notified: Yes Consult to Specialist Group: Surgery Person Notified: CASTILLO Date Notified: 07/07/16 Time Notified: 08:40 Consult Notification Comment: ALREADY SEEN PT THIS AM 07/06/16 17:01 Consult to Physician [CONS] Routine Comment: Patient with persistent encephalopathy patient wit Consulting Provider: Caesar Garcia Consulting Provider Notified: Yes Consult to Specialist Group: Neurology Person Notified: KARISHMA Date Notified: 07/07/16 Time Notified: 08:40 07/07/16 13:39 Consult to Physician [CONS] Routine Comment: Consulting Provider: Darryl Ray 07/15/16 09:52 Consult to Physician [CONS] Routine Comment: crf Consulting Provider: Rosalio Gasca Consulting Provider Notified: Yes Consult to Specialist Group: Nephrology Person Notified: SILVIANO Date Notified: 07/15/16 Time Notified: 10:00 07/16/16 10:53 Consult to Physician [CONS] Routine Comment: PEG tube placement Consulting Provider: Darryl Ray Consulting Provider Notified: Yes When should Consulting Provider be notified: Now Consult to Specialist Group: Gastroenterology Person Notified: JEREMY Date Notified: 07/16/16 Time Notified: 11:00 07/19/16 09:42 Consult to Physician [CONS] Routine Comment: toe nails Consulting Provider: Jaiden Kwon Consulting Provider Notified: Yes When should Consulting Provider be notified: In am Consult to Specialist Group: Surgery Person Notified: BRENDEN Date Notified: 07/19/16 Time Notified: 08:40 07/29/16 07:46 Consult to Physical Therapy [CONS] Routine Reason for Physical Therapy: Evaluate and Treat 07/30/16 01:33 Consult to Physical Therapy [CONS] Routine Reason for Physical Therapy: Weakness Start Therapy: Today Discharging clinician: Yair Reyes MD Expected date of discharge: 08/03/16
[2016-08-03 11:53] VITALS: BP 114/86
== END 2016-08-03 15:25 | DRG 432 ==
LOC: EDUNIT# → EDSEX → N.ED 15:51 → N.EDINP 18:49 → N.ICU 19:19 → N.2E 07-22 15:03
PROVIDERS: ADMIT Family Medicine; ATTEND Family Medicine
PROC: EGDWPEG (ICD-10-PCS; 2016-07-20 11:05)